=== PATIENT | male | born 1935 | race Caucasian/White ===

== ENCOUNTER 2018-02-24 13:06 | Inpatient (IN) | payer OTHER ==
--- OUTSIDE RECORDS SUMMARY | 2018-02-24 13:43 | XMS REPORT | Clinical Summary ---
:1935 Author Organization [facility] Address [address] [place] [address] Care Team Providers Name Role Phone Keyon Love MD Primary Care Provider Allergies No Known Allergies Current Medications Prescription Sig. Disp. Refills Start Date End Date Status allopurinol (ZYLOPRIM) Take 300 mg by 1 06/15/2016 Active 300 MG tablet mouth once daily. DUREZOL 0.05 % drops PUT 1 DROP INTO 0 07/09/2016 Active RIGHT EYE 4 TIMES A DAY gatifloxacin (ZYMAXID) PUT 1 DROP INTO 1 07/23/2016 Active 0.5 % drops LEFT EYE TWICE A DAY 3 DAYS PRE-OP metoprolol succinate XL Take 100 mg by 1 07/22/2016 Active (TOPROL-XL) 100 mg 24 hr mouth 2 (two) times tablet a day. ILEVRO 0.3 % INSTILL 1 DROP INTO 0 07/25/2016 Active drops,suspension RIGHT EYE AT BEDTIME warfarin (COUMADIN) 3 MG Take 4.5 mg by 1 08/19/2016 Active tablet mouth once daily. ranitidine (ZANTAC) 150 Take 150 mg by 2 07/23/2016 Active MG tablet mouth once daily. nisoldipine (SULAR) 30 MG Take 30 mg by mouth 0 08/22/2016 Active 24 hr tablet once daily. Active Problems Problem Noted Date Venous stasis dermatitis of both lower extremities 04/04/2017 Varicose veins of both legs with edema 04/04/2017 Lymphedema of both lower extremities 04/04/2017 Encounters Date Type Specialty Care Team Description 10/24/2017 Office Visit Cardiovascular Von Farias MD Venous stasis dermatitis of both lower extremities (Primary Dx); Varicose veins of both legs with edema; Lymphedema of both lower extremities 04/04/2017 Office Visit Cardiovascular Von Farias MD Venous stasis dermatitis of both lower extremities (Primary Dx); Varicose veins of both legs with edema; Lymphedema of both lower extremities after 02/23/2017 Family History Medical History Relation Name Comments Cancer Mother Cancer Sister Relation Name Status Comments Mother breast cancer Sister breast cancer Social History Tobacco Use Types Packs/Day Years Used Date Never Smoker Alcohol Use Drinks/Week oz/Week Comments No Sex Assigned at Date Recorded Not on file Last Filed Vital Signs Vital Sign Reading Time Taken Blood Pressure 128/48 04/04/2017 12:46 PM CDT Pulse - - Temperature - - Respiratory Rate 14 04/04/2017 12:46 PM CDT Oxygen Saturation - - Inhaled Oxygen Concentration - - Weight 126 kg (277 lb) 04/04/2017 12:46 PM CDT Height 188 cm (6' 2") 04/04/2017 12:46 PM CDT Body Mass Index 35.56 04/04/2017 12:46 PM CDT Plan of Treatment Date Type Specialty Care Team Description 06/16/2018 [place] [address] [id number] Health Maintenance Due Date Last Done Comments SHINGRIX VACCINE (#1) 1987 ZOSTER VACCINE 1997 PNEUMOCOCCAL POLYSACCHARIDE VACCINE AGE 65 AND OVER 2002 PNEUMOCOCCAL-13 2002 INFLUENZA VACCINE 03/19/2018 Results Not on fileafter 02/23/2017 Insurance Payer Benefit Plan / Group Subscriber ID Type Phone Address MEDICARE MEDICARE PART A AND B xxxxxxxxxx Medicare [place], [place] AETNA AETNA PPO OPEN CHOICE xxxxxxxxx PPO
--- NOTE | 2018-02-24 14:45 | RAD REPORT ---
EXAM DESCRIPTION: RAD - Chest Single View - 02/24/2018 2:33 pm CLINICAL HISTORY: CHF, Renal Failure Chest pain. COMPARISON: Chest Pa And Lat (2 Views) dated 12/07/2016; CHEST PA AND LAT 2 VIEW dated 01/22/2011; CHES T PA AND LAT 2 VIEW dated 09/13/2010; CHEST PA AND LAT 2 VIEW dated 01/18/2009 FINDINGS: Portable technique limits examination quality. The lungs are underinflated with mild vascular crowding. No focal infiltrate is seen. The heart is mi ldly to moderately enlarged. No displaced fractures.Aortic atherosclerosis. IMPRESSION: Underinflated lungs with vascular crowding.
[2018-02-24 15:32] LABS: Absolute Lymphocytes (CBC) 0.9 K/uL (0.7-4.9); Absolute Monocytes 0.8 K/uL (0.1-1.3); Absolute Neutrophil 6.1 K/uL (1.8-8.0); Eosinophils % 2.3 % (0-4.4); Hematocrit 32.5 % (39.6-49.0); Lymphocytes % 11.3 % (15.3-44.8); MCH 32.4 pg (27.0-35.0); MCV 97.7 fL (80-100); MPV 9.3 fL (7.6-11.3); Monocytes % 9.6 % (3.3-12.3); RBC Red Blood Cell Count 3.32 M/uL (4.33-5.43)
[2018-02-24 15:34] LABS: Protime INR 3.7
[2018-02-24 15:47] LABS: Potassium 4.6 mmol/L (3.5-5.1)
[2018-02-24 15:48] LABS: Albumin 2.8 g/dL (3.4-5.0); Bilirubin Direct 0.2 mg/dL (0-0.2); Bilirubin Total 0.5 mg/dL (0.2-1.0); Protein, Total 6.8 g/dL (6.4-8.2); Uric Acid 3.4 mg/dL (3.5-7.2)
[2018-02-24] MEDS ORDERED: HOME MED 1 EA UNK (Omeprazole [Prilosec] 40 MG) PO PRN (16:37)
--- NOTE | 2018-02-24 16:40 | ECHO ---
HEIGHT: 6 ft 2 in WEIGHT: 275 lb 12.8 oz DATE OF STUDY: 02/24/[address]: Keyon Love MD 2-DIMENSIONAL: YES M.MODE: YES DOPPLER: YES COLOR FLOW: YES TDS: PORTABLE: DEFINITY: BUBBLE STUDY: DIAGNOSIS: CONGESTIVE HEART FAILURE CARDIAC HISTORY: CATHERIZATION: NO SURGERY: NO PROSTHETIC VALVE: NO PACEMAKER: NO MEASUREMENTS (cm) DIASTOLIC (NORMALS) SYSTOLIC (NORMALS) IVSd 1.2 (0.6-1.2) LA Diam 3.6 (1.9-4.0) LVEF 64% LVIDd 5.6 (3.5-5.7) LVIDs 3.6 (2.0-3.5) %FS 35% LVPWd 1.4 (0.6-1.2) Ao Diam 3.5 (2.0-3.7) 2 DIMENSIONAL ASSESSMENT: RIGHT ATRIUM: NORMAL LEFT ATRIUM: NORMAL RIGHT VENTRICLE: NORMAL LEFT VENTRICLE: LEFT VENTRICULAR HYPERTROPHY TRICUSPID VALVE: NORMAL MITRAL VALVE: NORMAL PULMONIC VALVE: NORMAL AORTIC VALVE: NORMAL PERICARDIAL EFFUSION: NONE AORTIC ROOT: NORMAL LEFT VENTRICULAR WALL MOTION: NORMAL DOPPLER/COLOR FLOW: MILD MITRAL REGURGITATION AND TRICUSPID REGURGITATION. MILD PULMONARY HYPERTENSION. ESTIMATED RIGHT VENTRICULAR SYSTOLIC PRESSURE 45 mmHg. IMPAIRED LEFT VENTRICULAR RELAXATION. COMMENTS: NORMAL LEFT VENTRICULAR EJECTION FRACTION. LEFT VENTRICULAR HYPERTROPHY. MILD MITRAL REGURGITATION AND TRICUSPID REGURGITATION. MILD PULMONARY HYPERTENSION. IMPAIRED LEFT VENTRICULAR RELAXATION. TECHNOLOGIST: SRINIVAS MARIE
[2018-02-24] MEDS ORDERED: HOME MED 1 EA UNK (Cholecalciferol (Vitamin D3) [Vitamin D3] 1 CAP) PO SCH (16:45)
[2018-02-24] MEDS ORDERED: PANTOPRAZOLE 40MG TABLET PO PRN (16:50)
[2018-02-24] MEDS ORDERED: FUROSEMIDE 40 MG/4 ML VIAL IV ONE (17:00)
[2018-02-24] MEDS ORDERED: VITAMIN D 1000 UNIT TAB PO SCH (17:00)
--- NOTE | 2018-02-24 17:37 | CON ---
History Of Present Illness: Mr. Small is 83. He is placed in the hospital because he has been short of breath. His shortness of breath started Saturday. He has orthopnea and dyspnea on exertion. No p ain, pressure, or tightness in the chest. Minimal exertion causes trouble. when he gets out of roman th, he has to sit upright or stand to catch his breath. After he does so, he can usually lay back do wn and feel better in 10 or 15 minutes. He has no previous history of heart disease. He has hyperte nsion and renal failure. His most recent creatinine is 4.7. He takes Coumadin. He does not really know the indication for his Coumadin. Medications: He also takes Prilosec, Lasix, sodium bicarbonate, ranitidine, Uloric, amlodipine metop rolol, calcium acetate. No previous history of stroke, myocardial infarction, stents, thrombectomies, bypass surgeries. Physical Examination: General: He is 6 feet 2 inches, 275 pounds. Alert, oriented, pleasant, not in distress. Lungs: Reveal sparse basilar crackles. Heart: Reveals a regular rate and rhythm. No significant murmur. No gallop is appreciated. No anton stolic murmur. Abdomen: Soft. Extremities: 2+ edema. 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 Allergies: HE IS ALLERGIC TO CODEINE AND MORPHINE. Social History: He uses no tobacco. Rare alcohol. No illegal drugs. An EKG has not been done. The chest x-ray reveals vascular crowding, poor inspiratory effort. Impression: The patient has dyspnea from mild volume overload, probably almost uremic. His echocard iogram shows normal ejection fraction. There is left ventricular hypertrophy, diastolic dysfunction, but I think it is really a combination of cardiac and renal disease making him go into a mild pulmon ryley edema. He should have an x-ray. He should have a pharmacologic nuclear stress test to see where we are want to go with things. He needs some diuresis to feel better above and beyond what he has r eceived. I doubt if the 20 mg of furosemide he takes daily has any effect on him. He has already qu ite advanced renal disease. He is well in the stage 4. INEZ/LISA Voice ID: [id number] Report ID: [id number]
[2018-02-24 19:09] LABS: Urine Appearance CLEAR; Urine Bilirubin NEGATIVE (NEG); Urine Blood 1+ (NEG); Urine Color YELLOW; Urine Glucose 1+ (NEG); Urine Protein 3+ (NEG); Urine Specific Gravity 1.015 (1.005-1.030); Urine Urobilinogen 0.2 mg/dL (0.2-1.0)
[2018-02-24 19:30] LABS: Urine Microscopic Reflex ORDER UMIC
[2018-02-24 19:36] LABS: Urine Bacteria <20 /HPF (NONE SEEN); Urine Culture Reflex Order REFLEXED
[2018-02-24] MEDS: METOPROLOL XL 100 MG TAB PO SCH (20:51)
[2018-02-24] MEDS ORDERED: WARFARIN SODIUM 1 MG TAB ONE (20:52)
[2018-02-24] MEDS ORDERED: METOLAZONE 5 MG TABLET PO SCH (21:30)
--- NOTE | 2018-02-24 21:39 | P.CNS ---
Date of Consult: 02/24/18 Reason for Consult: ERVIN Requesting Physician: Keyon Love Chief Complaint: Dyspnea History of Present Illness: 83 yo WM CKD, HTN presented to the hospital with 3-4 days of moderate, progressive dyspnea in the setting of CKD with LE edema. Symptoms worse with activity. No alleviating fx. Reports no hx of CHF. Follows with Dr. Jimenez for CKD sp left partial nephrectomy due to RCC. Has a lesion on his right kidney suspicious for RCC and followed by Dr. Alan (urology) . Allergies codeine Adverse Reaction (Verified 02/24/18 14:13) Itching morphine Adverse Reaction (Verified 02/24/18 14:13) Itching Home medications list reviewed: Yes Home Medications: Acetaminophen/Diphenhydramine [Tylenol Pm Ex-Strength Caplet] 2 tab PO PRN 02/24 Amlodipine Besylate 10 mg PO DAILY 02/24/18 Antiox#10/Om3/Dha/Epa/Lut/Zeax [I-Caps with Lutein-Hickory 3 Sfg] 1 tab PO DAILY 02/24/18 Calcium Acetate 1 cap PO DAILY 02/24/18 Cholecalciferol (Vitamin D3) [Vitamin D3] 1 cap PO SEECOM 02/24/18 Cyanocobalamin (Vitamin B-12) [Vitamin B-12] 1 tab PO DAILY 02/24/18 Docusate Sodium [Stool Softener] 100 mg PO 02/24/18 Febuxostat [Uloric] 80 mg PO DAILY 02/24/18 Furosemide 20 mg PO DAILY 02/24/18 L-Lysine 1 cap PO DAILY 02/24/18 Metoprolol Succinate [Toprol Xl] 100 mg PO BID 02/24/18 Omeprazole [Prilosec] 40 mg PO DAILYPRN PRN 02/24/18 Ranitidine HCl [Acid Psychological Assistant] 150 mg PO DAILY 02/24/18 Sodium Bicarbonate 325 mg PO DAILY 02/24/18 Warfarin Sodium 4.5 mg PO DAILY 02/24/18 - Past Medical/Surgical History Diabetic: No -: HTN -: Stage 4 kidney -: DVT filter -: Kidney Ca -: 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 moist/pink Neck: Supple, JVD distended Respiratory: Diminished Cardiovascular: Regular rate/rhythm, No rubs, Edema Gastrointestinal: Soft and benign, Non-distended, No guarding Musculoskeletal: No clubbing, No contractures Integumentary: No cyanosis, Skin lesion Neurological: Normal speech Laboratory Data (last 24 hrs) 02/24/18 15:00: Uric Acid 3.4 L, Total Bilirubin 0.5, AST 20, ALT 12, Alkaline Phosphatase 69 02/24/18 15:00: PT 44.3 H, INR 3.70 02/24/18 15:00: Sodium 145, Potassium 4.6, BUN 63 H, Creatinine 4.70 H, Glucose 86 02/24/18 15:00: WBC 8.1, Hgb 10.8 L, Hct 32.5 L, Plt Count 240 Imagings Data: CXR: Cardiomegaly. CHF. Aortic atherosclerosis. Conclusions/Impression: A/ ERVIN likely CRS. CKD IV with proteinuria. Left partial nephrectomy. Acidosis. A/C Diastolic CHF. HTN with CKD. Anemia in chronic illness. PRASANNA/ Secondary HyperPTH. Gout. Right renal lesion suspicious for RCC. P/ Continue current POC and Medications. Agree with Lasix. Give a dose of metolazone. Increase bicarb and Phoslo TID. Start Vitamin D. Check a renal ultrasound. Plan for cardiology evaluation. No NSAIDs. AM labs. Daily weight. Check hepatitis panel. Thank you kindly for the consultation.
--- NOTE | 2018-02-24 22:21 | RAD REPORT ---
EXAM DESCRIPTION: US - Renal Ultrasound-Complete - 02/24/2018 10:08 pm CLINICAL HISTORY: CKD IV. Right renal lesion. Left nephrectomy. Flank pain COMPARISON: ABDOMINAL EXAM COMPLETE dated 09/13/2010 FINDINGS: The left kidney appears small in size and is quite echogenic. The right kidney appears mil dly echogenic and is slightly enlarged. The right kidney measures 13.6 x 6.1 x 5.2 cm.. Multiple right renal cysts are noted of varying sizes . In addition, in the inferior pole a solid mass appearing lesion is present measuring 5.7 x 4.7 cm. The left kidney measures 7.5 x 5.7 x 5.8 cm. No hydronephrosis. Small cyst measuring 18 mm noted. The urinary bladder is incompletely distended without gross abnormality seen. IMPRESSION: Inferiorly located right renal mass lesion is suspected measuring 5.7 x 4.7 cm. This wou ld be worrisome for a malignancy. CT or MR imaging of the kidneys would be recommended for further ev aluation. Echogenic kidneys, greater on the left, suggests underlying medical renal disease.
[2018-02-25 04:56] LABS: Absolute Lymphocytes (CBC) 1.4 K/uL (0.7-4.9); Absolute Neutrophil 6.3 K/uL (1.8-8.0); Eosinophils % 3.8 % (0-4.4); Hematocrit 32.2 % (39.6-49.0); Lymphocytes % 15.1 % (15.3-44.8); MCV 95.8 fL (80-100); MPV 9.1 fL (7.6-11.3); Monocytes % 10.8 % (3.3-12.3); RBC Red Blood Cell Count 3.36 M/uL (4.33-5.43)
[2018-02-25 05:18] LABS: Phosphorus 5.3 mg/dL (2.5-4.9); Potassium 4.4 mmol/L (3.5-5.1); Uric Acid 3.4 mg/dL (3.5-7.2)
[2018-02-25 05:19] LABS: Protime INR 3.86
[2018-02-25 05:29] LABS: Urine Appearance CLEAR; Urine Bilirubin NEGATIVE (NEG); Urine Blood 1+ (NEG); Urine Color YELLOW; Urine Glucose NEGATIVE (NEG); Urine Protein 3+ (NEG); Urine Urobilinogen 0.2 mg/dL (0.2-1.0)
[2018-02-25 05:39] LABS: Urine Bacteria <20 /HPF (NONE SEEN); Urine Culture Reflex Order NOT NEEDED; Urine RBC <5 /HPF (NONE SEEN)
[2018-02-25 05:42] LABS: Urine Protein/Creatinine Ratio 10.12 ratio (<0.15)
[2018-02-25] MEDS: CA ACETATE 667 MG CAP PO SCH ×3 (07:56→17:06)
[2018-02-25] MEDS ORDERED: REGADENOSON 0.4 MG/5 ML SYR IV ONE (08:20)
[2018-02-25] MEDS ORDERED: HOME MED 1 EA UNK (Cyanocobalamin (Vitamin B-12) [Vitamin B-12] 1 TAB) PO SCH (09:00)
[2018-02-25] MEDS ORDERED: SODIUM BICARB 325 MG TAB PO SCH ×2 (09:00)
[2018-02-25] MEDS: FEBUXOSTAT 80 MG PO SCH (09:00)
[2018-02-25] MEDS ORDERED: CA ACETATE 667 MG CAP PO SCH ×2 (09:00)
[2018-02-25] MEDS ORDERED: METOLAZONE 5 MG TABLET PO SCH ×2 (09:00→15:00)
[2018-02-25] MEDS: VITAMIN D 5,000 UNIT CAP PO SCH (11:12)
[2018-02-25] MEDS: MUPIROCIN 2% OINT 22GM TUBE TOP SCH (11:12)
[2018-02-25] MEDS: CYANOCOBALAMIN 1,000 MCG TAB PO SCH (11:13)
[2018-02-25] MEDS: AMLODIPINE 10 MG TAB PO SCH (11:13)
[2018-02-25] MEDS: CALCITROL 0.25 MCG CAP PO SCH (11:13)
[2018-02-25] MEDS: BISACODYL E.C. 5 MG TAB PO SCH (11:14)
[2018-02-25] MEDS: SODIUM BICARB 325 MG TAB PO SCH ×3 (11:14→21:22)
[2018-02-25] MEDS: METOPROLOL XL 100 MG TAB PO SCH ×2 (11:15→21:22)
[2018-02-25] MEDS: DOXAZOSIN 2 MG TAB PO SCH (11:15)
--- NOTE | 2018-02-25 11:23 | RAD REPORT ---
EXAM DESCRIPTION: NM - Rest Stress Cardiac Imaging - 02/25/2018 11:16 am CLINICAL HISTORY: CP Chest pain. COMPARISON: No comparisons TECHNIQUE: The patient was administered approximately 10mCi of Tc 99m Sestamibi prior to resting SPE CT imaging of the heart. The patient was then administered approximately 30 mCi of Tc 99m Sestamibi f ollowing exercise or pharmacologic stress. Multiplanar SPECT images were reviewed. FINDINGS: No stress induced ischemic defect is seen to suggest stress induced ischemia. No fixed def ect is seen to suggest hibernating myocardium or scarred myocardium. The end diastolic volume is 186 ml, the end systolic volume is 81 ml, and the ejection fraction is 57 %. IMPRESSION: No stress induced ischemia.
--- NOTE | 2018-02-25 12:58 | TREADPHA ---
DX: SHORTNESS OF BREATH Date of Study: 02/25/2018 Ht: 6 2 Wt: 275 lb 12.8 oz Consulting Physician: SAMMY MEDICATIONS: NORVASC, DULCOLAX, ROCALTOL, PHOSLO, VITAMIN D, VITAMIN B12, ZAROXOLYN, TOPROL XL, BACTROBAN, PROTONIX HISTORY: 83 YEAR OLD MALE HERE FOR SHORTNESS OF BREATH. HISTORY OF HYPERTENSION, GERD AND STAGE 4 KIDNEY FAILURE. PHYSICIAL EXAMINATION: RESTING B.P.: 174/84 RESTING H.R.: 59 RESTING EKG: SINUS RHYTHM, RIGHT BUNDLE BRANCH BLOCK PROTOCOL: LEXISCAN EXERCISE TIME: 3:30 B.P. AT PEAK STRESS: 160/75 IMPRESSION: LEXISCAN STRESS TEST PERFORMED. CARDIOLITE INJECTED PER PROTOCOL. PREMATURE ATRIAL COMPLEXES NOTED DURING, RARE PREMATURE VENTRICULAR COMPLEXES NOTED DURING AND POST STRESS TEST. DENIES ANY PAIN. SEE NUCLEAR MEDICINE REPORT.
[2018-02-25] MEDS: ACETAMINOPHEN 500 MG TAB PO PRN (14:27)
[2018-02-25] MEDS ORDERED: FUROSEMIDE 40 MG/4 ML VIAL IV ONE (15:00)
[2018-02-25] MEDS ORDERED: WARFARIN SODIUM 3 MG TAB PO ONE (17:00)
--- NOTE | 2018-02-25 21:37 | P.PN ---
Date of Service: 02/25/18 Vital Signs Temp Pulse Resp BP Pulse Ox 96.6 F L 55 18 148/68 H 94 02/25/18 20:00 02/25/18 21:22 02/25/18 20:00 02/25/18 21:22 02/25/18 20:00 Medications Acetaminophen (Tylenol -Extra Strength) 500 mg PO Q6H PRN PRN Reason: pain Stop: 03/27/18 14:03 Last Admin: 02/25/18 14:27 Dose: 500 mg Amlodipine Besylate (Norvasc) 10 mg PO DAILY BASSAM Stop: 03/27/18 09:01 Last Admin: 02/25/18 11:13 Dose: 10 mg Bisacodyl (Dulcolax) 5 mg PO DAILY BASSAM Stop: 03/27/18 09:01 Last Admin: 02/25/18 11:14 Dose: 5 mg Calcitriol (Rocaltrol) 0.5 mcg PO DAILY BSASAM Stop: 03/27/18 09:01 Last Admin: 02/25/18 11:13 Dose: 0.5 mcg Calcium Acetate (Phoslo) 667 mg PO TIDWM BASSAM Stop: 03/27/18 08:01 Last Admin: 02/25/18 17:06 Dose: 667 mg Cholecalciferol (Vitamin D 5,000 Iu Cap) 5,000 unit PO DAILY BASSAM Stop: 03/27/18 09:01 Last Admin: 02/25/18 11:12 Dose: 5,000 unit Cyanocobalamin (Vitamin B-12) 2,000 mcg PO DAILY BASSAM Stop: 03/27/18 09:01 Last Admin: 02/25/18 11:13 Dose: 2,000 mcg Doxazosin Mesylate (Cardura) 2 mg PO DAILY BASSAM Stop: 03/27/18 09:01 Last Admin: 02/25/18 11:15 Dose: 2 mg Home Med (Febuxostat [Uloric]) 80 mg PO DAILY BASSAM Stop: 03/27/18 09:01 Last Admin: 02/25/18 09:00 Dose: Not Given Metolazone (Zaroxolyn) 10 mg PO 1X BASSAM Stop: 03/27/18 15:01 Last Admin: 02/25/18 14:44 Dose: 10 mg Metoprolol Succinate (Toprol Xl) 100 mg PO BID BASSAM Stop: 03/26/18 21:01 Last Admin: 02/25/18 21:22 Dose: 100 mg Mupirocin (Bactroban 2% Ointment) 1 appl TOP DAILY BASSAM Stop: 03/27/18 09:01 Last Admin: 02/25/18 11:12 Dose: 1 appl Pantoprazole Sodium (Protonix Tab) 40 mg PO DAILYPRN PRN PRN Reason: GASTRIC UPSET/ INDIGESTION Stop: 03/26/18 16:51 Sodium Bicarbonate (Sodium Bicarb 325 Mg) 325 mg PO TID BASSAM Stop: 03/27/18 09:01 Last Admin: 02/25/18 21:22 Dose: 325 mg Sodium Chloride (Normal Saline Flush) 10 ml IV BID BASSAM Stop: 03/26/18 21:01 Last Admin: 02/25/18 21:22 Dose: 10 ml Sodium Chloride (Normal Saline Flush) 10 ml IV PRN PRN PRN Reason: FLUSH BEFORE & AFTER EACH USE Stop: 03/26/18 13:59 Lab Results (last 24 hrs) 02/25/18 05:02: Urine Color Yellow, Urine Appearance Clear, Urine pH 6.0, Ur Specific Casa 1.010, Urine Ketones Negative, Urine Blood 1+ H, Urine Nitrite Negative, Urine Bilirubin Negative, Urine Urobilinogen 0.2, Ur Leukocyte Esterase Negative, Urine RBC <5, Urine WBC <5, Ur Squamous Epith Cells <5, Urine Bacteria <20, Urine Culture Reflexed Not needed, Urine Glucose Negative, Urine Total Protein 3+ H 02/25/18 05:02: U Random Total Protein 263 H, Urine Creatinine 26.0, Protein/ Creatinin Ratio 10.12 H 02/25/18 04:08: Sodium 146 H, Potassium 4.4, Chloride 115 H, Carbon Dioxide 20 L , BUN 69 H, Creatinine 4.90 H, Estimated GFR 11 L, Glucose 87, Uric Acid 3.4 L, Calcium 8.2 L, Phosphorus 5.3 H, Magnesium 2.0 02/25/18 04:08: WBC 9.2, RBC 3.36 L, Hgb 10.8 L, Hct 32.2 L, MCV 95.8, MCH 32.0 , MCHC 33.4, RDW 13.5, Plt Count 257, MPV 9.1, Neutrophils % 69.3, Lymphocytes % 15.1 L, Monocytes % 10.8, Eosinophils % 3.8, Basophils % 1.0, Absolute Neutrophils 6.3, Absolute Lymphocytes 1.4, Absolute Monocytes 1.0, Absolute Eosinophils 0.4, Absolute Basophils 0.1 02/25/18 04:08: PT 46.2 H, INR 3.86 Assessment/ Plan: Nephrology. Feeling better today but still with HIGUERA. CPS improved without CP or SOB. Good urine output. No acute events overnight. Vitals, medications, blood work and imaging reviewed in the chart. General: In no apparent distress, Oriented x3, Cooperative HEENT: Mucous membr. moist/pink Neck: Supple, JVD distended Respiratory: Diminished Cardiovascular: Regular rate/rhythm, No rubs, Edema Gastrointestinal: Soft and benign, Non-distended, No guarding Musculoskeletal: No clubbing, No contractures Integumentary: No cyanosis, Skin lesion Neurological: Normal speech Laboratory Data (last 24 hrs) 02/24/18 15:00: Uric Acid 3.4 L, Total Bilirubin 0.5, AST 20, ALT 12, Alkaline Phosphatase 69 02/24/18 15:00: PT 44.3 H, INR 3.70 02/24/18 15:00: Sodium 145, Potassium 4.6, BUN 63 H, Creatinine 4.70 H, Glucose 86 02/24/18 15:00: WBC 8.1, Hgb 10.8 L, Hct 32.5 L, Plt Count 240 Imagings Data: CXR: Cardiomegaly. CHF. Aortic atherosclerosis. Conclusions/Impression: A/ ERVIN likely CRS vs Progressive CKD. CKD IV with proteinuria. Left partial nephrectomy. Acidosis. A/C Diastolic CHF. HTN with CKD. Anemia in chronic illness. PRASANNA/ Secondary HyperPTH. Gout. Right renal lesion suspicious for RCC followed by Dr. Alan. P/ Continue current POC and Medications. Give another dose of Lasix and Metolazone today. Cardiology evaluation negative for ischemia. No NSAIDs. AM labs. Daily weight. Case discussed with Dr. Love Recommend discharge once stable with a follow up with Dr. Alan for right renal lesion resection; will likely need dialysis following a partial renal resection.
--- NOTE | 2018-02-26 01:45 | HP ---
Date of Admission: 02/24/2018 Entrance Complaint: Shortness of breath. History Of Present Illness: The patient presented to the office, stating he had a couple days where he has noticed he has been increasingly short of breath. However, the day he was seen in the office, he noticed marked dyspnea, especially with exertion. He had difficulty coming to the office from e parking lot. Past Medical History: The patient has a long history of kidney disease starting with carcinoma, whic h is being treated aggressively in [place] with a procedure. Since that time, he has also developed a lesion on the opposite kidney, the right, which has been followed by Nephrology and Urology. State s there has been some changes, and he is now on stage IV. He did not follow rather closely for this. Also has a history of hypertension, which is well controlled on medication, and past remote history consists of multiple PEs, for which he had an anticoagulation in the form of Coumadin therapy and a filter inserted. He has had no recent embolic disease. In fact, cardiac cruz, he was seen about a y ear ago for some atypical chest pain, at which time a catheterization was done and no procedure was r equired after this and there was no major blockage. Social History: Nonsmoker, nondrinker. Family History: Noncontributory. Physical Examination: General: The patient is a grossly obese, elderly male in mild respiratory distress. Vital Signs: Stable. Head and Neck: Normocephalic. Pupils equal, react to light and accommodation. Fundi negative. Trac hea midline. Thyroid not palpable. ENT: Negative. Chest: Bilateral rales. No use of accessory muscles. Adequate air entry bilaterally. Cardiovascular: PMI in midclavicular line. Heart: Sounds normal. Peripheral pulses present and equal bilaterally. Abdomen: Grossly obese. No organomegaly. Bowel sounds present. Extremities: Good tone and movement bilaterally. Minimal problems of upper extremities. Lower extr emities, show +1 to 2 pitting edema, two-quarters of the way from the knee to the foot with significa nt dermatological changes, and mild superficial abrasion on the left lower leg. Rectal: Deferred. Impression: 1.Congestive heart failure. 2.Possible coronary artery disease of significance. 3.Renal failure. 4.Hypertension, controlled. 5.Obesity, marked. Plan: The patient to be admitted. Consultation be obtained with Cardiology and Nephrology. Diuresi s will be indicated depending on the cardiac status. More aggressive treatment of the kidney problem may be necessary. /LISA Voice ID: [id number]
--- NOTE | 2018-02-26 02:12 | PN ---
Date of Progress Note: 02/25/2018 The patient states he put a lot of urine last night and recorded over 2000 cc. Stated last night he still had trouble breathing when he would go to the bathroom. However, as the night progressed, he d iuresed more, by this morning, he was much less dyspneic. Workup ensued, which included a Cardiolite stress test which showed no major changes other than some isolated rhythm problems with no ST or ischemic changes. Chest x-ray did reveal mild overload. His echo was basically stable. Cardiology felt it was a combi nation of renal and cardiac, which created the mild pulmonary edema. Will discuss the case further w armin Suarez, the plate mill mill hand, as far as management of this problem is concerned. HR/MODL Voice ID: [id number] Report ID: [id number]
--- NOTE | 2018-02-26 02:56 | PN ---
Patient congestive heart failure, seen by Dr. Hunter on 02/24/2018 for diastolic congestiv e heart failure, chronic renal disease stage IV, had a normal echocardiogram, otherwise with a normal ejection fraction, had decreased left ventricular compliance. He had been diuresing, renal is follo wing and continuing with the same therapy. The patient is feeling much better, breathing better. Julia saldivar is pending for today. ARSLAN Voice ID: [id number] Report ID: [id number]
[2018-02-26 05:47] LABS: Uric Acid 4.6 mg/dL (3.5-7.2)
[2018-02-26 05:52] LABS: Protime INR 2.91
[2018-02-26] MEDS: DOXAZOSIN 2 MG TAB PO SCH (08:35)
[2018-02-26] MEDS: CA ACETATE 667 MG CAP PO SCH ×3 (08:35→17:21)
[2018-02-26] MEDS: VITAMIN D 5,000 UNIT CAP PO SCH (08:35)
[2018-02-26] MEDS: CALCITROL 0.25 MCG CAP PO SCH (08:35)
[2018-02-26] MEDS: METOPROLOL XL 100 MG TAB PO SCH ×2 (08:36→21:13)
[2018-02-26] MEDS: SODIUM BICARB 325 MG TAB PO SCH ×3 (08:36→21:13)
[2018-02-26] MEDS: CYANOCOBALAMIN 1,000 MCG TAB PO SCH (08:36)
[2018-02-26] MEDS: AMLODIPINE 10 MG TAB PO SCH (08:37)
[2018-02-26] MEDS: FUROSEMIDE 40 MG TABLET PO SCH ×2 (08:37→17:21)
[2018-02-26] MEDS: BISACODYL E.C. 5 MG TAB PO SCH (08:38)
[2018-02-26] MEDS: MUPIROCIN 2% OINT 22GM TUBE TOP SCH (08:39)
[2018-02-26] MEDS: FEBUXOSTAT 80 MG PO SCH (08:40)
--- NOTE | 2018-02-26 09:01 | RAD REPORT ---
EXAM DESCRIPTION: RAD - Chest Pa And Lat (2 Views) - 02/26/2018 6:51 am CLINICAL HISTORY: chf Chest pain. COMPARISON: Chest Single View dated 02/24/2018; Chest Pa And Lat (2 Views) dated 12/07/2016; CHEST PA A ND LAT 2 VIEW dated 01/22/2011; CHEST PA AND LAT 2 VIEW dated 09/13/2010 FINDINGS: The lungs are hyperexpanded suggesting COPD. Trace pleural effusions are likely present bi laterally. Heart is moderately enlarged in size. No displaced fractures. Thoracic spondylosis is note d.
--- NOTE | 2018-02-26 14:41 | PN ---
The patient continues to improve as far as his breathing is concerned. Chest x-ray shows less vascul ar congestion. He states he can now walk to the bathroom with much less dyspnea, although he still h as with some exertion; however, the problem is his creatinine continues to rise, now at 5.2. Lasix s cenario, he has taken much higher dose than he is accustomed to. This issue of balancing the basics of the fluid and renal function will be discussed further with Nephrology. The probability of him di scharged in the a.m. is excellent unless there is some significant reduction in his renal function. The patient also has lost close to 7 pounds and continues to diurese. HR/MODL Voice ID: [id number] Report ID: [id number]
[2018-02-26] MEDS ORDERED: WARFARIN SODIUM 2 MG TAB PO ONE (17:00)
--- NOTE | 2018-02-26 17:18 | PN ---
Date of Progress Note: 02/26/2018 Subjective: The patient states that he is doing much better. Denies any complaints. Shortness of b reath is improving and lower extremity edema is improving. He is able to walk and he denies any dysp will on exertion. Physical Examination: Vital signs: Showing temperature of 97.5, pulse rate of 58, respiratory rate of 18, blood pressure 1 34/61. General: He appears in no acute distress. Auscultation of heart revealed regular rate and rhythm. Abdomen: Soft. Extremities: With chronic changes but no acute edema was noted. Lungs: Clear to auscultation. Laboratory Data: At this time is showing sodium of 144, potassium of 4, chloride of 112, BUN of 75, and creatinine of 5.2. BMP results are showing hemoglobin of 10.8, hematocrit of 32.2, and platelet count of 257. Current Medications: Include Lasix 40 mg p.o. b.i.d., got a dose of metolazone yesterday, amlodipine 10 mg a day, doxazosin 2 mg daily. He got 1 dose of Lasix yesterday as well, metoprolol 100 mg b.i. d., warfarin 3 mg daily and his INR is being checked. Impression: 1.Ddszo-wt-urvbbmo renal insufficiency, currently with slightly worse renal function, possibly secon nicholas to ongoing diuresis leading to cardiorenal syndrome. The patient's volume status definitely see ms to be improving at this time and electrolytes seems to be stable even though renal function is get ting worse. Overall, since his volume status is doing okay, I am okay with him getting discharged wi th close followup as outpatient. He has been following with Dr. Jimenez for a while and he is willing t o follow up with us closely and monitor his renal function closely. I have given him an order to get his blood work done next week and follow up with me closely. 2.Cardiology evaluation for ischemia. The patient is being followed by Dr. Hunter. 3.Underlying renal cell carcinoma. The patient is being scheduled with for a possibl e partial versus total nephrectomy depending on the situation, so the patient has been notified of e possibility of ending up on dialysis, which the patient is aware of and is okay with that. 4.Chronic anemia. The patient's hemoglobin is overall stable. No need for ASHVIN at this time. 5.Hypertension. 6.Congestive heart failure, improving volume status overall. Plan: The patient is doing much better at this time, even though renal function worse, we are okay w ith discharging him with close followup as outpatient. Have counseled him on low-sodium diet and he should be taking Lasix 40 mg b.i.d. at home and we will get labs done and follow up closely. We will follow up with Dr. Love to monitor his INR levels and his Coumadin will be adjusted. Continue al l other medications and plan of care. Plan was discussed with the patient and family in detail. All questions were answered. Discussed with the nursing staff about discharge planning. Time spent abo ut 45 minutes. TR/LISA Voice ID: [id number] Report ID: [id number]
[2018-02-27 05:36] LABS: Protime INR 2.2
[2018-02-27 05:39] LABS: Absolute Lymphocytes (CBC) 1.3 K/uL (0.7-4.9); Absolute Monocytes 0.9 K/uL (0.1-1.3); Basophils % 0.8 % (0-1.3); Eosinophils % 4.2 % (0-4.4); Hematocrit 29.5 % (39.6-49.0); MCH 32.6 pg (27.0-35.0); MCV 95.1 fL (80-100); MPV 9.1 fL (7.6-11.3); Monocytes % 11.7 % (3.3-12.3); RBC Red Blood Cell Count 3.11 M/uL (4.33-5.43)
[2018-02-27] MEDS: MUPIROCIN 2% OINT 22GM TUBE TOP SCH (08:41)
[2018-02-27] MEDS: CA ACETATE 667 MG CAP PO SCH ×3 (08:42→16:23)
[2018-02-27] MEDS: CALCITROL 0.25 MCG CAP PO SCH (08:42)
[2018-02-27] MEDS: SODIUM BICARB 325 MG TAB PO SCH ×2 (08:42→13:56)
[2018-02-27] MEDS: CYANOCOBALAMIN 1,000 MCG TAB PO SCH (08:43)
[2018-02-27] MEDS: VITAMIN D 5,000 UNIT CAP PO SCH (08:43)
[2018-02-27] MEDS: FUROSEMIDE 40 MG TABLET PO SCH ×2 (08:43→16:23)
[2018-02-27] MEDS: DOXAZOSIN 2 MG TAB PO SCH (08:44)
[2018-02-27] MEDS: AMLODIPINE 10 MG TAB PO SCH (08:44)
[2018-02-27] MEDS: FEBUXOSTAT 80 MG PO SCH (08:45)
[2018-02-27] MEDS: METOPROLOL XL 100 MG TAB PO SCH (08:45)
[2018-02-27] MEDS: BISACODYL E.C. 5 MG TAB PO SCH (08:45)
[2018-02-27] MEDS: ACETAMINOPHEN 500 MG TAB PO PRN (14:38)
[2018-02-27] MEDS ORDERED: EPOETIN ALFA 10,000 UNIT/ML SQ ONE (16:00)
[2018-02-27 20:01] LABS: HBsAG Nonreactive (Nonreactive)
--- NOTE | 2018-02-28 21:12 | P.PN ---
Date of Service: 02/27/18 Vital Signs Temp Pulse Resp BP Pulse Ox 97.0 F 58 18 137/68 93 02/27/18 16:00 02/27/18 16:23 02/27/18 16:00 02/27/18 16:23 02/27/18 16:00 Microbiology Results 02/24/18 18:30 Clean Catch Urine [place] Count - Final BETWEEN 10,000 & 100,000 CFU/ML 02/24/18 18:30 Clean Catch Urine - Final Assessment/ Plan: Nephrology. Doing well. CPS improved without CP or SOB. Good urine output. No acute events overnight. Vitals, medications, blood work and imaging reviewed in the chart. General: In no apparent distress, Oriented x3, Cooperative HEENT: Mucous membr. moist/pink Neck: Supple, JVD distended Respiratory: Diminished Cardiovascular: Regular rate/rhythm, No rubs, Edema Gastrointestinal: Soft and benign, Non-distended, No guarding Musculoskeletal: No clubbing, No contractures Integumentary: No cyanosis, Skin lesion Neurological: Normal speech Laboratory Data (last 24 hrs) 02/24/18 15:00: Uric Acid 3.4 L, Total Bilirubin 0.5, AST 20, ALT 12, Alkaline Phosphatase 69 02/24/18 15:00: PT 44.3 H, INR 3.70 02/24/18 15:00: Sodium 145, Potassium 4.6, BUN 63 H, Creatinine 4.70 H, Glucose 86 02/24/18 15:00: WBC 8.1, Hgb 10.8 L, Hct 32.5 L, Plt Count 240 Imagings Data: CXR: Cardiomegaly. CHF. Aortic atherosclerosis. Conclusions/Impression: A/ ERVIN likely CRS vs Progressive CKD. CKD IV with proteinuria. Left partial nephrectomy. Acidosis. A/C Diastolic CHF. HTN with CKD. Anemia in chronic illness. PRASANNA/ Secondary HyperPTH. Gout. Right renal lesion suspicious for RCC followed by Dr. Alan. P/ Continue current POC and Medications. Lasix 40mg twice daily. Cardiology evaluation negative for ischemia. No NSAIDs. AM labs. Daily weight. Agree with overnight stay due to worsening ERVIN. However, will consider discharge today due to the lack of uremic symptoms. Stressed to the patient that he will need to follow up with Dr. Alan soon due to the right renal lesion. Counseled regarding the possibility of starting dialysis soon.
--- NOTE | 2018-03-01 16:24 | PN ---
Date of Progress Note: 02/27/2018 The patient states he continues to diuresed, has lost a little bit more weight, but does feel better as far as his breathing is concerned, although he says moderate amount of exertion still create some dyspnea. Physical exam reveals much less peripheral edema and only occasional rales. Chemically his creatinin e seem to level off as well as his INR. Discussion with the welding pantograph machine operator, he feels comfortable to sen d him home on his Lasix 40 mg b.i.d. and Coumadin 3 mg and followup in a few days in the office. He is to continue daily weights, with the fluctuation of greater 5 pounds to let either welding pantograph machine operator or myself know. The patient appears at this time to be a candidate for his surgical procedure on the [facility] and this information will be for referred to his urologist, Dr. Kebede as the patient has an appointment in approximately 2 weeks. Discharged in fair condition. HR/MODL Voice ID: [id number] Report ID: [id number]
--- NOTE | 2018-04-15 06:06 | DS ---
Date of Discharge: 02/27/2018 Hospital Summary: The patient was admitted to the hospital on 02/24 after presenting to the emergenc y room with significant progressive shortness of breath. The diagnosis of CHF was made, and he was d iuresed and admitted for further treatment. The patient has a rather complicated history in regard t o his kidney. He had a partial nephrectomy for the left renal cell carcinoma and is currently being seen by the same urologist, Dr. Alan in [place] for a lesion on the opposite kidney. In between time s, he has had some renal decompensation and has been seen by Nephrology on a regular basis. As of la , he has noticed some swelling and as mentioned, shortness of breath. He is on a diuretic on a abran y low dose. He was admitted, diuresed, seen by Cardiology and Nephrology. The possibility of dialys is was a definite consideration. During his hospital stay, his medication was adjusted as well as hi s cardiac medicine of metoprolol, amlodipine and diuresis with Lasix. He was also given metolazone, which seemed to improved his output considerably and resulted in decreased symptomatology and physica l examination as far as peripheral edema is concerned. His bicarb and PhosLo was also increased and started on vitamin D. On the above-outlined regimen, it was felt by Nephrology, Cardiology, and myse lf that he possibly could avoid dialysis until after the schedule surgical procedure and/or biopsy by Dr. Alan in [place] in a couple weeks and he was therefore discharged on his modified medications to be followed up by Urology, Cardiology and myself. Final Diagnoses: Acute episode of congestive heart failure, renal cell carcinoma by history and on t he right a renal lesion with probable renal cell carcinoma, chronic kidney disease, and acute episode of deep venous thrombosis with filter placement by history. HR/MODL Voice ID: [id number] Report ID: [id number]
== END 2018-02-27 17:30 | disposition home or self-care (01) | DRG 291 ==
LOC: 3RD-ICU 13:38 → 4TH 19:10
PROVIDERS: ADMIT Family Medicine; ATTEND Family Medicine
DX: I13.0 Hypertensive heart and chronic kidney disease with heart failure and stage 1 through stage 4 chronic kidney disease, or unspecified chronic kidney disease (principal); I50.33 Acute on chronic diastolic (congestive) heart failure; N17.9 Acute kidney failure, unspecified; N18.4 Chronic kidney disease, stage 4 (severe); E87.2 Acidosis; N25.81 Secondary hyperparathyroidism of renal origin; C64.1 Malignant neoplasm of right kidney, except renal pelvis; Z85.528 Personal history of other malignant neoplasm of kidney; Z86.718 Personal history of other venous thrombosis and embolism; Z79.01 Long term (current) use of anticoagulants; D63.8 Anemia in other chronic diseases classified elsewhere; N25.0 Renal osteodystrophy; M10.9 Gout, unspecified; E66.9 Obesity, unspecified; Z88.5 Allergy status to narcotic agent; Z68.35 Body mass index [BMI] 35.0-35.9, adult
CPT/HCPCS: 36415; 71045; 71046; 76770; 78452; 80048; 80076; 81001; 81003; 81015; 82570; 83735; 84100; 84156; 84550; 85025; 85610; 86704; 86706; 86803; 87086; 87088; 87340; 93005; 93017; 93306; A9500; J0885; J2785

== ENCOUNTER 2018-03-06 19:21 | Inpatient (IN) | payer OTHER ==
--- OUTSIDE RECORDS SUMMARY | 2018-03-06 19:33 | XMS REPORT | Clinical Summary ---
:1935 Author Organization [facility] Address [address] [place] [address] Care Team Providers Name Role Phone Keyon [...] edema; Lymphedema of both lower extremities after 03/05/2017 Family History Medical History Relation Name Comments [...] 06/16/2018 [place] [id number] [id number] Health Maintenance Due Date Last Done Comments SHINGRIX VACCINE (#1) 1987 ZOSTER VACCINE 1997 PNEUMOCOCCAL POLYSACCHARIDE VACCINE AGE 65 AND OVER 2002 PNEUMOCOCCAL-13 2002 INFLUENZA VACCINE 03/19/2018 Results Not on fileafter 03/05/2017 Insurance Payer Benefit Plan / Group Subscriber ID Type Phone Address MEDICARE MEDICARE PART A AND B xxxxxxxxxx Medicare [place], [place] AETNA AETNA PPO OPEN CHOICE xxxxxxxxx PPO
[2018-03-06] MEDS ORDERED: CEFAZOLIN/NS 1gm 1 GM/50 ML BAG IVPB SCH (20:45)
[2018-03-06] MEDS ORDERED: NA CHLORIDE 0.9% 1,000 ML IV PRN (21:42)
[2018-03-06] MEDS ORDERED: MANNITOL 25% 12.5 GM/50 ML VIAL IV PRN (21:42)
[2018-03-06] MEDS ORDERED: ALBUMIN HUMAN 25% 50 ML IV SCH (22:00)
[2018-03-06] MEDS: SODIUM CHLORIDE 0.9% 10ML INJ IV SCH (23:40)
--- NOTE | 2018-03-07 03:15 | CON ---
Date of Consultation: 03/06/2018 Reason For Consult: Patient needs urgent dialysis. History Of Present Illness: The patient is an 83-year-old gentleman with history of kidney cancer, s tatus post partial resection of the mass on the other kidney now, and he has had chronic renal insuff iciency, but recently he had increasing volume overload and the BUN and creatinine have gone up to 14 8 and 8.5, and he needs dialysis sooner rather than later. He is awake and alert. No shortness of b reath. No chest pain. No fever or chills. Review of Systems: Otherwise unremarkable. Past Medical History: Significant for hypertension and kidney cancer. Past Surgical History: Kidney surgery, bilateral knee replacement. Allergies: INCLUDE CODEINE AND MORPHINE AND ADHESIVE TAPE. Social History: He does not smoke or drink. Family History: Noncontributory. Physical Examination: Vital Signs: Stable. He is afebrile. General: He is awake, alert, and oriented x3. Head and Neck: Cranial nerves 2 through 12 grossly within normal limits. No neck masses. No JVD. Throat clear. Neck is supple. Chest: Clear. Heart: S1, S2. Abdomen: Soft. Extremities: Neurovascularly intact. Neuro: Nonfocal. Laboratory Data: Chemistry reviewed. His BUN is 148, creatinine is 8.5. His INR is 1.62. H and H are 10.1 and 29.5, platelets are 214. Assessment: 83-year-old gentleman with kidney cancer, acute renal failure, requires urgent dialysis. Recommendations: The patient is on Coumadin, however the INR is 1.62. We will hold the Coumadin tod ay. He should be good to go for tomorrow. We will go ahead and place the Tesio catheter. Patient a nd family understand the risks, benefits, and alternatives, and agrees to procedure. /MODL Voice ID: [id number] Report ID: [id number]
[2018-03-07] MEDS: METOPROLOL XL 100 MG TAB PO SCH ×3 (05:11→20:44)
[2018-03-07 05:35] LABS: Absolute Lymphocytes (CBC) 1.3 K/uL (0.7-4.9); Absolute Monocytes 1.3 K/uL (0.1-1.3); Absolute Neutrophil 7.2 K/uL (1.8-8.0); Basophils % 0.8 % (0-1.3); Hematocrit 29.5 % (39.6-49.0); Lymphocytes % 12.4 % (15.3-44.8); MCH 32.1 pg (27.0-35.0); MCV 94.6 fL (80-100); MPV 9.7 fL (7.6-11.3); Monocytes % 12.1 % (3.3-12.3); RBC Red Blood Cell Count 3.12 M/uL (4.33-5.43)
[2018-03-07 06:02] LABS: Protime INR 1.54
[2018-03-07 06:35] LABS: Magnesium 2.7 mg/dL (1.8-2.4); Phosphorus 8.3 mg/dL (2.5-4.9); Potassium 3.6 mmol/L (3.5-5.1); Uric Acid 5.8 mg/dL (3.5-7.2)
[2018-03-07] MEDS ORDERED: NA CHLORIDE 0.9% 500 ML ONE (08:06)
[2018-03-07] MEDS ORDERED: CEFAZOLIN/SWI 1gm 1 GM/10 ML SYR ONE (08:06)
[2018-03-07] MEDS ORDERED: HEPARIN 5000 UNIT/ML 1 ML VIAL ONE (08:12)
[2018-03-07] MEDS ORDERED: NA CHLORIDE 0.9% 100 ML IV ONE (08:13)
[2018-03-07] MEDS ORDERED: BUPIVACAINE 0.5% PF 10 ML VIAL ONE ×2 (08:13→08:15)
[2018-03-07] MEDS ORDERED: BUPIVACAINE 0.25% PF 10 ML VIAL ONE (08:14)
[2018-03-07] MEDS ORDERED: LIDOCAINE 1% MPF 30 ML VIAL ONE (08:27)
[2018-03-07] MEDS ORDERED: NS 0.9% VIAL 10 ML ONE (08:27)
[2018-03-07] MEDS ORDERED: KETAMINE HCL 500 MG/5 ML VIAL ONE (08:46)
[2018-03-07] MEDS ORDERED: MIDAZOLAM HCL 2 MG/2 ML INJ ONE (08:47)
[2018-03-07] MEDS: VITAMIN D 5,000 UNIT CAP PO SCH (09:00)
[2018-03-07] MEDS: AMLODIPINE 10 MG TAB PO SCH (09:00)
[2018-03-07] MEDS: CALCITROL 0.25 MCG CAP PO SCH (09:00)
--- NOTE | 2018-03-07 09:24 | P.OP ---
Preoperative diagnosis: ARF Postoperative diagnosis: same Primary procedure: RIJ Nicolas Secondary procedure: fluoroscopy Anesthesia: MAC Estimated blood loss: min Specimen: none Findings: as above Complications: None Transferred to: Recovery Room Condition: Good
[2018-03-07] MEDS ORDERED: TRAMADOL 37.5mg/APAP 325mg PER TAB PO PRN (09:43)
--- NOTE | 2018-03-07 09:45 | RAD REPORT ---
EXAM DESCRIPTION: RAD - Fluoroscopy <1 Hour - 03/07/2018 9:36 am CLINICAL HISTORY: Device placement central venous catheter placement FINDINGS: A central venous catheter was placed into the superior vena cava. The examination was per formed by Dr. Auguste Three fluoroscopic spot images are submitted
[2018-03-07] MEDS: FENTANYL CITR 100 MCG/2 ML ONE ×3 (09:55→10:07)
--- NOTE | 2018-03-07 10:24 | RAD REPORT ---
EXAM DESCRIPTION: RAD - Chest Single View - 03/07/2018 10:02 am CLINICAL HISTORY: Device placement central venous line placement COMPARISON: February 26, 2018 FINDINGS: A PICC line has been inserted with its tip in the distal superior vena cava. A central venous catheter has been placed into the superior vena cava without visualization of a pneu mothorax. No other change is noted IMPRESSION: Placement of a central venous catheter without visualization of a pneumothorax
[2018-03-07] MEDS: SODIUM CHLORIDE 0.9% 10ML INJ IV SCH ×2 (10:34→21:12)
--- NOTE | 2018-03-07 12:41 | OP ---
Date of Procedure: 03/07/2018 Surgeon: Mundo Auguste MD Preoperative Diagnosis: Acute renal failure. Postoperative Diagnosis: Acute renal failure. Procedure: Placement of right internal jugular Tesio catheter and interpretation of intraoperative f luoroscopy. Estimated Blood Loss: Minimal. Specimen: None. Findings: Normal anatomy. Anesthesia: MAC. Complications: None. Disposition: The patient tolerated the procedure in stable condition and taken to Recovery in good g eneral condition. Operative Note: The patient brought to the OR and placed in supine position. MAC anesthesia was beg un. The patient was prepped and draped in usual sterile fashion. Lidocaine 1% was infiltrated local ly. An 18-gauge needle was used to access the right IJ vein. Guidewire was passed. Position was co nfirmed with fluoroscopy and then counterincisions made on the right anterior chest. Tunneling devic e was used to tunnel the catheter between the 2 wounds and then Seldinger technique used and tip of t he catheter placed in the superior vena cava under fluoroscopy. The catheter had good blood flow and was flushed with heparin and packed with heparin and then 3-0 chromic was used to approximate subcut aneous tissue and close the skin. A 3-0 nylon used to secure the tube to the chest wall. Sterile dressing was applied. The patient was awakened and taken to Recovery in good general condition. Jolene st x-ray has been ordered. /MODL Voice ID: [id number] Report ID: [id number]
[2018-03-07] MEDS: EPOETIN ALFA 10,000 UNIT/ML VIAL IV SCH (16:52)
--- NOTE | 2018-03-07 18:51 | EKG ---
Test Date: 2018-03-07 Test Time: 08:18:41 Manager Category: CHAD MEASUREMENT RESULTS: Intervals: Rate: 56 [place]: 274 QRSD: 186 QT: 524 QTc: 505 [place]: P: 53 [place]: 274 QRS: -40 T: 8 INTERPRETIVE STATEMENTS: Sinus bradycardia with 1st degree AV block Left axis deviation Left ventricular hypertrophy with QRS widening Abnormal ECG Compared to ECG 02/24/2018 16:50:07 Left-axis deviation now present Left ventricular hypertrophy now present Sinus rhythm no longer present Right bundle-branch block no longer present Electronically Signed On 03-07-18 18:47:38 CDT by Malik Artis
--- NOTE | 2018-03-07 22:49 | P.CNS ---
Date of Consult: 03/07/18 Reason for Consult: ESRD Requesting Physician: Keyon Love Primary Care Provider: Dr. Love Chief Complaint: ERVIN History of Present Illness: 83 yo WM HTN, CHF presented to the hospital as a direct admission for severe, progressive acute on chronic renal failure in the setting of a partial nephrectomy. Failed outpt therapy and had a recent admission complicated by acute CHF. No modifying fx. Seen and examined on HD. Has a known kidney lesion that may require a nephrectomy soon. Case discussed with Dr. Love. Allergies adhesive tape Adverse Reaction (Verified 03/06/18 20:27) Itching codeine Adverse Reaction (Verified 03/06/18 20:27) Itching morphine Adverse Reaction (Verified 03/06/18 20:27) Itching Home medications list reviewed: Yes Home Medications: Acetaminophen/Diphenhydramine [Tylenol Pm Ex-Strength Caplet] 2 tab PO PRN 02/24 Amlodipine Besylate 10 mg PO DAILY 02/24/18 Antiox#10/Om3/Dha/Epa/Lut/Zeax [I-Caps with Lutein-[place] 3 Sfg] 1 tab PO DAILY 02/24/18 Cholecalciferol (Vitamin D3) [Vitamin D3] 1 cap PO SEECOM 02/24/18 Cyanocobalamin (Vitamin B-12) [Vitamin B-12] 1 tab PO BEDTIME 02/24/18 Docusate Sodium [Stool Softener] 100 mg PO BEDTIME 02/24/18 Febuxostat [Uloric] 80 mg PO DAILY 02/24/18 L-Lysine 500 mg PO DAILY 02/24/18 Metoprolol Succinate [Toprol Xl] 100 mg PO BID 02/24/18 Omeprazole [Prilosec] 40 mg PO DAILYPRN PRN 02/24/18 Ranitidine HCl [Acid Design Analyst] 150 mg PO BEDTIME 02/24/18 Warfarin Sodium 3 mg PO DAILY 02/24/18 Calcium Acetate 1 cap PO TID 30 Days #90 capsule 02/27/18 Furosemide [Lasix*] 40 mg PO BIDL 90 Days #180 tab 02/27/18 Sodium Bicarbonate 325 mg PO DAILY 03/06/18 Triamcinolone 0.1% Crm [Kenalog 0.1% Cream*] 1 appl TOP PRN PRN 03/06/18 - Past Medical/Surgical History Diabetic: No -: HTN -: Stage 4 kidney -: DVT filter -: Kidney Ca -: 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 -: DVT filter placed -: cataract sx -: hemhorroid sx -: bilateral knee sx - Family History Mother Medical History: Heart disease, Hypertension, Cancer Notes: breast cancer [place] Father Medical History: Heart disease, Hypertension Notes: CHF Sister Medical History: Hypertension, Kidney disease Notes: breast removed d/t precancer - Social History Alcohol use: No CD- Drugs: No Caffeine use: No Place of Residence: Home Review of Systems 10-point ROS is otherwise unremarkable General: Weakness Respiratory: SOB with Excertion Cardiovascular: Edema Physical Examination Temp Pulse Resp BP Pulse Ox 97.3 F 64 18 134/61 95 03/07/18 20:00 03/07/18 20:44 03/07/18 20:00 03/07/18 20:44 03/07/18 20:00 General: Oriented x3, Cooperative HEENT: Atraumatic, Mucous membr. moist/pink Neck: Supple Respiratory: Clear to auscultation bilaterally Cardiovascular: Regular rate/rhythm, No rubs, Edema Gastrointestinal: Soft and benign, Non-distended, No guarding Musculoskeletal: No clubbing, No contractures, No warmth Integumentary: No rashes, No cyanosis, Skin lesion (Venous stasis of the LE) Neurological: Normal speech Urinary: Dialysis catheter External genitalia: No edema Laboratory Data (last 24 hrs) 03/07/18 05:07: Sodium 143, Potassium 3.6, BUN 152 H, Creatinine 8.20 H*, Glucose 94, Uric Acid 5.8, Phosphorus 8.3 H, Magnesium 2.7 H D 03/07/18 05:07: PT 18.2 H, INR 1.54 03/07/18 05:07: WBC 10.4 D, Hgb 10.0 L, Hct 29.5 L, Plt Count 214 Imagings Data: CXR: No PTX Conclusions/Impression: ESRD with HD initiated [id number]. Progressive CKD V with proteinuria. Left partial nephrectomy. Acidosis. Chronic Diastolic CHF. HTN with CKD. Anemia in chronic illness. PRASANNA/ Secondary HyperPTH. Gout. Right renal lesion suspicious for RCC followed by Dr. Alan. P/ Continue current POC and Medications. HD initiated today. Seen and examined on HD. Start Renvela and Vitamin D. No NSAIDs. AM labs. Daily weight. Arrange placement at the [facility]. Thank you kindly for the consultation.
[2018-03-08] MEDS: METOPROLOL XL 100 MG TAB PO SCH ×2 (05:50→17:12)
[2018-03-08 06:38] LABS: Absolute Lymphocytes (CBC) 0.9 K/uL (0.7-4.9); Absolute Monocytes 0.9 K/uL (0.1-1.3); Absolute Neutrophil 6.6 K/uL (1.8-8.0); Basophils % 0.6 % (0-1.3); Eosinophils % 2.9 % (0-4.4); Hematocrit 31.1 % (39.6-49.0); MCH 32.6 pg (27.0-35.0); MCV 94.6 fL (80-100); MPV 9.6 fL (7.6-11.3); Monocytes % 10.3 % (3.3-12.3); RBC Red Blood Cell Count 3.29 M/uL (4.33-5.43)
[2018-03-08 06:48] LABS: Potassium 3.6 mmol/L (3.5-5.1)
[2018-03-08] MEDS: SEVELAMER CARBONATE 800 MG TABLET PO SCH ×3 (09:03→17:12)
[2018-03-08] MEDS: CALCITROL 0.25 MCG CAP PO SCH (09:03)
[2018-03-08] MEDS: AMLODIPINE 10 MG TAB PO SCH (09:04)
[2018-03-08] MEDS: SODIUM CHLORIDE 0.9% 10ML INJ IV SCH ×2 (09:04→21:12)
[2018-03-08] MEDS: VITAMIN D 5,000 UNIT CAP PO SCH (09:04)
[2018-03-08] MEDS: EPOETIN ALFA 10,000 UNIT/ML VIAL IV SCH (10:44)
--- NOTE | 2018-03-08 16:18 | PN ---
The patient tolerated the catheter insertion without a problem, although he still feels considerably weak. He is starting to undergo his dialysis. HR/MODL Voice ID: [id number] Report ID: [id number]
[2018-03-09] MEDS: METOPROLOL XL 100 MG TAB PO SCH ×2 (05:51→17:05)
[2018-03-09] MEDS: VITAMIN D 5,000 UNIT CAP PO SCH (08:27)
[2018-03-09] MEDS: CALCITROL 0.25 MCG CAP PO SCH (08:27)
[2018-03-09] MEDS: SEVELAMER CARBONATE 800 MG TABLET PO SCH ×3 (08:27→17:05)
[2018-03-09] MEDS: AMLODIPINE 10 MG TAB PO SCH (08:28)
[2018-03-09] MEDS: SODIUM CHLORIDE 0.9% 10ML INJ IV SCH ×2 (08:30→21:32)
--- NOTE | 2018-03-09 08:46 | P.PN ---
Date of Service: 03/08/18 Vital Signs Temp Pulse Resp BP Pulse Ox 97.8 F 58 18 138/64 90 L 03/09/18 04:00 03/09/18 08:28 03/09/18 04:00 03/09/18 08:28 03/09/18 04:00 Medications Amlodipine Besylate (Norvasc) 10 mg PO DAILY BASSAM Stop: 04/06/18 09:01 Last Admin: 03/09/18 08:28 Dose: 10 mg Calcitriol (Rocaltrol) 0.5 mcg PO DAILY BASSAM Stop: 04/06/18 09:01 Last Admin: 03/09/18 08:27 Dose: 0.5 mcg Cholecalciferol (Vitamin D 5,000 Iu Cap) 5,000 unit PO DAILY BASSAM Stop: 04/06/18 09:01 Last Admin: 03/09/18 08:27 Dose: 5,000 unit Epoetin Cam (Procrit) 10,000 unit IV EVERY HD BASSAM Stop: 04/05/18 21:46 Last Admin: 03/08/18 10:44 Dose: 10,000 unit Heparin Sodium (Porcine) (Heparin 1,000 Units/Ml) 6,000 unit IJ EVERY HD PRN PRN Reason: FLUSH AFTER EACH USE Stop: 04/05/18 21:43 Last Admin: 03/08/18 10:45 Dose: 6,000 unit Cefazolin Sodium (Ancef 1 Gm/50 Ml Ns Ivpb) 1 gm in 50 mls @ 100 mls/hr IVPB OC BASSAM; Protocol Stop: 04/05/18 20:46 Last Admin: 03/07/18 08:55 Dose: 50 mls Albumin Human (Albumin 25%) 50 mls @ 100 mls/hr IV EVERY HD BASSAM Stop: 04/05/18 22:01 Mannitol (Mannitol 12.5 Gm/50 Ml Vial) 12.5 gm IV EVERY HD PRN PRN Reason: BP support at hemodialysis Stop: 04/05/18 21:43 Metoprolol Succinate (Toprol Xl) 100 mg PO BID 6AM 6PM BASSAM Stop: 04/06/18 06:01 Last Admin: 03/09/18 05:51 Dose: 100 mg Sevelamer Carbonate (Renvela) 1,600 mg PO TIDWM BASSAM Stop: 04/07/18 08:01 Last Admin: 03/09/18 08:27 Dose: 1,600 mg Sodium Chloride (Sodium Chloride 10 Ml Inj) 10 ml IV BID BASSAM Stop: 04/05/18 21:01 Last Admin: 03/09/18 08:30 Dose: 10 ml Tramadol/Acetaminophen (Ultracet 37.5 Mg/Apap 325 Mg Per Tab) 1 tab PO Q6H PRN PRN Reason: PAIN Stop: 04/06/18 09:44 Last Admin: 03/07/18 12:09 Dose: 1 tab Assessment/ Plan: Nephrology. Doing well. Tolerated HD well. Seen and examined on HD. CPS stable without CP or SOB. No acute events overnight. Vitals, medications, blood work and imaging reviewed in the chart. General: Oriented x3, Cooperative HEENT: Atraumatic, Mucous membr. moist/pink Neck: Supple Respiratory: Clear to auscultation bilaterally Cardiovascular: Regular rate/rhythm, No rubs, Edema Gastrointestinal: Soft and benign, Non-distended, No guarding Musculoskeletal: No clubbing, No contractures, No warmth Integumentary: No rashes, No cyanosis, Skin lesion (Venous stasis of the LE) Neurological: Normal speech Urinary: Dialysis catheter External genitalia: No edema Laboratory Data (last 24 hrs) 03/07/18 05:07: Sodium 143, Potassium 3.6, BUN 152 H, Creatinine 8.20 H*, Glucose 94, Uric Acid 5.8, Phosphorus 8.3 H, Magnesium 2.7 H D 03/07/18 05:07: PT 18.2 H, INR 1.54 03/07/18 05:07: WBC 10.4 D, Hgb 10.0 L, Hct 29.5 L, Plt Count 214 Imagings Data: CXR: No PTX Conclusions/Impression: ESRD with HD initiated 7190826. Progressive CKD V with proteinuria. Left partial nephrectomy. Acidosis. Chronic Diastolic CHF. HTN with CKD. Anemia in chronic illness. PRAASNNA/ Secondary HyperPTH. Gout. Right renal lesion suspicious for RCC followed by Dr. Alan. P/ Continue current POC and Medications. Second HD today without difficulty. Seen and examined on HD. Renal diet. No NSAIDs. OOB as tolerated. Consider PT as needed. AM labs. Daily weight. Will consider a CT of the kidney on Saturday prior to HD to further evaluate renal lesion. Arrange placement at the [facility]. Case discussed with Dr. Love.
--- NOTE | 2018-03-09 17:18 | PN ---
Date of Progress Note: 02/14/2018 Subjective: The patient states he feels somewhat better. Obviously tolerating the dialysis quite we ll physically and chemically as well as his creatinine is now down to 5.3. HR/MODL Voice ID: [id number] Report ID: [id number]
[2018-03-09 18:59] LABS: HBsAG Nonreactive (Nonreactive)
--- NOTE | 2018-03-09 19:39 | PN ---
Date of Progress Note: 03/09/2018 Subjective: The patient states he still feels better than when he started, but still kind of weak. He was encouraged to be increase his mobilization. He is to continue with his dialysis Saturday and pr obably will be discharged once outpatient dialysis unit is set up for him. HR/MODL Voice ID: [id number] Report ID: [id number]
--- NOTE | 2018-03-09 21:53 | P.PN ---
Date of Service: 03/09/18 Vital Signs Temp Pulse Resp BP Pulse Ox 98.2 F 63 18 132/61 95 03/09/18 20:00 03/09/18 20:00 03/09/18 20:00 03/09/18 20:00 03/09/18 20:00 Medications Amlodipine Besylate (Norvasc) 10 mg PO DAILY BASSAM Stop: 04/06/18 09:01 Last Admin: 03/09/18 08:28 Dose: 10 mg Calcitriol (Rocaltrol) 0.5 mcg PO DAILY BASSAM Stop: 04/06/18 09:01 Last Admin: 03/09/18 08:27 Dose: 0.5 mcg Cholecalciferol (Vitamin D 5,000 Iu Cap) 5,000 unit PO DAILY BASSAM Stop: 04/06/18 09:01 Last Admin: 03/09/18 08:27 Dose: 5,000 unit Epoetin Cam (Procrit) 10,000 unit IV EVERY HD BASSAM Stop: 04/05/18 21:46 Last Admin: 03/08/18 10:44 Dose: 10,000 unit Heparin Sodium (Porcine) (Heparin 1,000 Units/Ml) 6,000 unit IJ EVERY HD PRN PRN Reason: FLUSH AFTER EACH USE Stop: 04/05/18 21:43 Last Admin: 03/08/18 10:45 Dose: 6,000 unit Cefazolin Sodium (Ancef 1 Gm/50 Ml Ns Ivpb) 1 gm in 50 mls @ 100 mls/hr IVPB OC BASSAM; Protocol Stop: 04/05/18 20:46 Last Admin: 03/07/18 08:55 Dose: 50 mls Albumin Human (Albumin 25%) 50 mls @ 100 mls/hr IV EVERY HD BASSAM Stop: 04/05/18 22:01 Mannitol (Mannitol 12.5 Gm/50 Ml Vial) 12.5 gm IV EVERY HD PRN PRN Reason: BP support at hemodialysis Stop: 04/05/18 21:43 Metoprolol Succinate (Toprol Xl) 100 mg PO BID 6AM 6PM BASSAM Stop: 04/06/18 06:01 Last Admin: 03/09/18 17:05 Dose: 100 mg Sevelamer Carbonate (Renvela) 1,600 mg PO TIDWM BASSAM Stop: 04/07/18 08:01 Last Admin: 03/09/18 17:05 Dose: 1,600 mg Sodium Chloride (Sodium Chloride 10 Ml Inj) 10 ml IV BID BASSAM Stop: 04/05/18 21:01 Last Admin: 03/09/18 21:32 Dose: 10 ml Tramadol/Acetaminophen (Ultracet 37.5 Mg/Apap 325 Mg Per Tab) 1 tab PO Q6H PRN PRN Reason: PAIN Stop: 04/06/18 09:44 Last Admin: 03/07/18 12:09 Dose: 1 tab Lab Results (last 24 hrs) 03/07/18 13:57: Hep Bs Antigen Nonreactive, Hep Bs Ag Confirmation Report, Hep Bs Antibody Nonreactive, Hep Bs Antibody, Quant <5 L, Hep B Core Total Ab Nonreactive, Hep B Core IgM Ab Not indicated, Hepatitis C Antibody Nonreactive, Hep C Ab Signal/Cutoff 0.01 Assessment/ Plan: Nephrology. Doing well. CPS stable without CP or SOB. No acute events overnight. Good appetite. Vitals, medications, blood work and imaging reviewed in the chart. General: Oriented x3, Cooperative HEENT: Atraumatic, Mucous membr. moist/pink Neck: Supple Respiratory: Clear to auscultation bilaterally Cardiovascular: Regular rate/rhythm, No rubs, Edema Gastrointestinal: Soft and benign, Non-distended, No guarding Musculoskeletal: No clubbing, No contractures, No warmth Integumentary: No rashes, No cyanosis, Skin lesion (Venous stasis of the LE) Neurological: Normal speech Urinary: Dialysis catheter External genitalia: No edema Laboratory Data (last 24 hrs) 03/07/18 05:07: Sodium 143, Potassium 3.6, BUN 152 H, Creatinine 8.20 H*, Glucose 94, Uric Acid 5.8, Phosphorus 8.3 H, Magnesium 2.7 H D 03/07/18 05:07: PT 18.2 H, INR 1.54 03/07/18 05:07: WBC 10.4 D, Hgb 10.0 L, Hct 29.5 L, Plt Count 214 Imagings Data: CXR: No PTX Conclusions/Impression: ESRD with HD initiated 7190826. Progressive CKD V with proteinuria. Left partial nephrectomy. Acidosis. Chronic Diastolic CHF. HTN with CKD. Anemia in chronic illness. PRASANNA/ Secondary HyperPTH. Gout. Right renal lesion suspicious for RCC followed by Dr. Alan. P/ Continue current POC and Medications. Next HD Saturday. Arrange for renal mass protocol CT prior to HD on Saturday; will send results to Dr. Alan. Renal diet. No NSAIDs. OOB as tolerated. Consider PT as needed. AM labs. Daily weight. Arrange placement at the [facility] Unit.
[2018-03-10] MEDS: METOPROLOL XL 100 MG TAB PO SCH ×2 (06:01→18:02)
[2018-03-10 06:07] LABS: Absolute Lymphocytes (CBC) 1.2 K/uL (0.7-4.9); Absolute Monocytes 1.1 K/uL (0.1-1.3); Absolute Neutrophil 6.1 K/uL (1.8-8.0); Basophils % 0.7 % (0-1.3); Eosinophils % 6.5 % (0-4.4); Hematocrit 31.3 % (39.6-49.0); Lymphocytes % 12.8 % (15.3-44.8); MCH 32.2 pg (27.0-35.0); MCV 96.2 fL (80-100); MPV 9.2 fL (7.6-11.3); Monocytes % 12.4 % (3.3-12.3); RBC Red Blood Cell Count 3.26 M/uL (4.33-5.43)
[2018-03-10 06:32] LABS: Albumin 2.6 g/dL (3.4-5.0); Bilirubin Total 0.5 mg/dL (0.2-1.0); Magnesium 2.1 mg/dL (1.8-2.4); Phosphorus 3.4 mg/dL (2.5-4.9); Potassium 3.7 mmol/L (3.5-5.1); Protein, Total 6.1 g/dL (6.4-8.2); Uric Acid 4.4 mg/dL (3.5-7.2)
[2018-03-10] MEDS: AMLODIPINE 10 MG TAB PO SCH (09:00)
[2018-03-10] MEDS: CALCITROL 0.25 MCG CAP PO SCH (09:54)
[2018-03-10] MEDS: VITAMIN D 5,000 UNIT CAP PO SCH (09:54)
[2018-03-10] MEDS: SEVELAMER CARBONATE 800 MG TABLET PO SCH ×3 (09:54→18:02)
[2018-03-10] MEDS: SODIUM CHLORIDE 0.9% 10ML INJ IV SCH ×2 (09:55→21:41)
--- NOTE | 2018-03-10 10:11 | RAD REPORT ---
EXAM DESCRIPTION: CT - Abdomen Pelvis W/Wo Contrast - 03/10/2018 9:01 am CLINICAL HISTORY: Right renal mass, flank pain COMPARISON: No comparisons TECHNIQUE: Axial non-contrast CT imaging was performed. Following this, biphasic contrast enhanced i maging through the abdomen and pelvis was performed with coronal and sagittal reformatted images. All CT scans are performed using dose optimization technique as appropriate and may include automated exposure control or mA/KV adjustment according to patient size. FINDINGS: The lower lung dumont are clear. Mild diffuse fatty liver. Multiple gallstones are present in the gallbladder. No liver mass is seen. The spleen, pancreas and adrenal glands are normal. A large irregular solid mass is seen involving the inferior right kidney containing solid and cystic components, in totality measuring 8 x 6 cm. This mass since most compatible with renal cell carcinoma . Postsurgical clips are seen adjacent to the superior medial aspect of the left kidney. A fatty mass w ith thin rim calcification is seen emanating off the inferior posterior aspect of the left kidney wenceslao suring 5.8 x 4.4 cm. Small fat containing ventral hernia. Heavy aortic atherosclerosis. No free fluid, free air or bowel o bstruction. No bulky adenopathy is seen in the abdomen or pelvis. Lumbosacral degenerative changes are present. No lytic or blastic bone lesion. IMPRESSION: Large complex solid mass involving the inferior right kidney measuring 8 x 6 cm likely r epresents RCC. Soft tissue and fat containing lesion inferior left kidney with thin rim calcification measuring 5.8 x 4.4 cm is noted. The appearance is not typical for AML, and thus raises suspicion of fat containing RCC. Cholelithiasis.
--- NOTE | 2018-03-10 13:55 | P.PN ---
Date of Service: 03/10/18 Vital Signs Temp Pulse Resp BP Pulse Ox 98.0 F 55 16 124/62 98 03/10/18 12:00 03/10/18 12:00 03/10/18 12:00 03/10/18 12:00 03/10/18 12:00 Medications Amlodipine Besylate (Norvasc) 10 mg PO DAILY BASSAM Stop: 04/06/18 09:01 Last Admin: 03/10/18 09:00 Dose: Not Given Calcitriol (Rocaltrol) 0.5 mcg PO DAILY BASSAM Stop: 04/06/18 09:01 Last Admin: 03/10/18 09:54 Dose: 0.5 mcg Cholecalciferol (Vitamin D 5,000 Iu Cap) 5,000 unit PO DAILY BASSAM Stop: 04/06/18 09:01 Last Admin: 03/10/18 09:54 Dose: 5,000 unit Epoetin Cam (Procrit) 10,000 unit IV EVERY HD BASSAM Stop: 04/05/18 21:46 Last Admin: 03/08/18 10:44 Dose: 10,000 unit Heparin Sodium (Porcine) (Heparin 1,000 Units/Ml) 6,000 unit IJ EVERY HD PRN PRN Reason: FLUSH AFTER EACH USE Stop: 04/05/18 21:43 Last Admin: 03/08/18 10:45 Dose: 6,000 unit Cefazolin Sodium (Ancef 1 Gm/50 Ml Ns Ivpb) 1 gm in 50 mls @ 100 mls/hr IVPB OC BASSAM; Protocol Stop: 04/05/18 20:46 Last Admin: 03/07/18 08:55 Dose: 50 mls Albumin Human (Albumin 25%) 50 mls @ 100 mls/hr IV EVERY HD BASSAM Stop: 04/05/18 22:01 Mannitol (Mannitol 12.5 Gm/50 Ml Vial) 12.5 gm IV EVERY HD PRN PRN Reason: BP support at hemodialysis Stop: 04/05/18 21:43 Metoprolol Succinate (Toprol Xl) 100 mg PO BID 6AM 6PM BASSAM Stop: 04/06/18 06:01 Last Admin: 03/10/18 06:01 Dose: 100 mg Sevelamer Carbonate (Renvela) 1,600 mg PO TIDWM BASSAM Stop: 04/07/18 08:01 Last Admin: 03/10/18 12:26 Dose: 1,600 mg Sodium Chloride (Sodium Chloride 10 Ml Inj) 10 ml IV BID BASSAM Stop: 04/05/18 21:01 Last Admin: 03/10/18 09:55 Dose: 10 ml Tramadol/Acetaminophen (Ultracet 37.5 Mg/Apap 325 Mg Per Tab) 1 tab PO Q6H PRN PRN Reason: PAIN Stop: 04/06/18 09:44 Last Admin: 03/07/18 12:09 Dose: 1 tab Lab Results (last 24 hrs) 03/10/18 05:33: Sodium 145, Potassium 3.7, Chloride 112 H, Carbon Dioxide 24, BUN 55 H D, Creatinine 4.70 H, Estimated GFR 12 L, Glucose 88, Uric Acid 4.4, Calcium 8.0 L, Phosphorus 3.4, Magnesium 2.1 D, Total Bilirubin 0.5, AST 15, ALT 11 L, Alkaline Phosphatase 48, Serum Total Protein 6.1 L, Albumin 2.6 L, Globulin 3.5, Albumin/Globulin Ratio 0.7 L 03/10/18 05:33: WBC 9.1, RBC 3.26 L, Hgb 10.5 L, Hct 31.3 L, MCV 96.2, MCH 32.2 , MCHC 33.5, RDW 13.1, Plt Count 175, MPV 9.2, Neutrophils % 67.6, Lymphocytes % 12.8 L, Monocytes % 12.4 H, Eosinophils % 6.5 H, Basophils % 0.7, Absolute Neutrophils 6.1, Absolute Lymphocytes 1.2, Absolute Monocytes 1.1, Absolute Eosinophils 0.6 H, Absolute Basophils 0.1 03/07/18 13:57: Hep Bs Antigen Nonreactive, Hep Bs Ag Confirmation Report, Hep Bs Antibody Nonreactive, Hep Bs Antibody, Quant <5 L, Hep B Core Total Ab Nonreactive, Hep B Core IgM Ab Not indicated, Hepatitis C Antibody Nonreactive, Hep C Ab Signal/Cutoff 0.01 Assessment/ Plan: Nephrology. Doing well. CPS stable without CP or SOB. No acute events overnight. Seen and examined on HD. Vitals, medications, blood work and imaging reviewed in the chart. General: Oriented x3, Cooperative HEENT: Atraumatic, Mucous membr. moist/pink Neck: Supple Respiratory: Clear to auscultation bilaterally Cardiovascular: Regular rate/rhythm, No rubs, Edema trace. Gastrointestinal: Soft and benign, Non-distended, No guarding Musculoskeletal: No clubbing, No contractures, No warmth Integumentary: No rashes, No cyanosis, Skin lesion (Venous stasis of the LE) Neurological: Normal speech Urinary: Dialysis catheter External genitalia: No edema Laboratory Data (last 24 hrs) 03/07/18 05:07: Sodium 143, Potassium 3.6, BUN 152 H, Creatinine 8.20 H*, Glucose 94, Uric Acid 5.8, Phosphorus 8.3 H, Magnesium 2.7 H D 03/07/18 05:07: PT 18.2 H, INR 1.54 03/07/18 05:07: WBC 10.4 D, Hgb 10.0 L, Hct 29.5 L, Plt Count 214 Imagings Data: CXR: No PTX Conclusions/Impression: ESRD with HD initiated [id number]. Progressive CKD V with proteinuria. Left partial nephrectomy. Acidosis. Chronic Diastolic CHF. HTN with CKD. Anemia in chronic illness. PRASANNA/ Secondary HyperPTH. Gout. Right renal lesion suspicious for RCC followed by Dr. Alan. P/ Continue current POC and Medications. Next HD Saturday. Renal diet. No NSAIDs. OOB as tolerated. Consider PT as needed. AM labs. Daily weight. Arrange placement at the [facility] D[facility] Unit. CT results consistent with RCC; Fax the results to Dr. Alan and advised the patient to follow up zoran.
[2018-03-10] MEDS: EPOETIN ALFA 10,000 UNIT/ML VIAL IV SCH (15:34)
[2018-03-11] MEDS: METOPROLOL XL 100 MG TAB PO SCH ×2 (05:06→17:22)
[2018-03-11] MEDS: SEVELAMER CARBONATE 800 MG TABLET PO SCH ×3 (09:01→17:23)
[2018-03-11] MEDS: VITAMIN D 5,000 UNIT CAP PO SCH (09:01)
[2018-03-11] MEDS: CALCITROL 0.25 MCG CAP PO SCH (09:01)
[2018-03-11] MEDS: AMLODIPINE 10 MG TAB PO SCH (09:01)
[2018-03-11] MEDS: SODIUM CHLORIDE 0.9% 10ML INJ IV SCH (09:02)
--- NOTE | 2018-03-11 18:27 | PN ---
Date of Progress Note: 03/10/2018 The patient continues to undergo dialysis. CT scan did reveal obvious suspicious lesion on the right . This has been forwarded to the urologist in [place], and depending on arrangements, he can be disc harged to continue outpatient dialysis until his [place] arrangements have been made for a surgical p rocedure. HR/MODL Voice ID: [id number] Report ID: [id number]
--- NOTE | 2018-03-11 21:19 | P.PN ---
Date of Service: 03/11/18 Vital Signs Temp Pulse Resp BP Pulse Ox 97.5 F 60 18 129/59 L 97 03/11/18 16:00 03/11/18 16:00 03/11/18 16:00 03/11/18 17:22 03/11/18 16:00 Assessment/ Plan: Nephrology. Doing well. CPS stable without CP or SOB. No acute events overnight. Vitals, medications, blood work and imaging reviewed in the chart. General: Oriented x3, Cooperative HEENT: Atraumatic, Mucous membr. moist/pink Neck: Supple Respiratory: Clear to auscultation bilaterally Cardiovascular: Regular rate/rhythm, No rubs, Edema trace. Gastrointestinal: Soft and benign, Non-distended, No guarding Musculoskeletal: No clubbing, No contractures, No warmth Integumentary: No rashes, No cyanosis, Skin lesion (Venous stasis of the LE) Neurological: Normal speech Urinary: Dialysis catheter External genitalia: No edema Laboratory Data (last 24 hrs) 03/07/18 05:07: Sodium 143, Potassium 3.6, BUN 152 H, Creatinine 8.20 H*, Glucose 94, Uric Acid 5.8, Phosphorus 8.3 H, Magnesium 2.7 H D 03/07/18 05:07: PT 18.2 H, INR 1.54 03/07/18 05:07: WBC 10.4 D, Hgb 10.0 L, Hct 29.5 L, Plt Count 214 Imagings Data: CXR: No PTX Conclusions/Impression: ESRD with HD initiated [id number]. Progressive CKD V with proteinuria. Left partial nephrectomy. Acidosis. Chronic Diastolic CHF. HTN with CKD. Anemia in chronic illness. PRASANNA/ Secondary HyperPTH. Gout. Right renal lesion suspicious for RCC followed by Dr. Alan. P/ Continue current POC and Medications. Next HD at the clinic. Renal diet. No NSAIDs. OOB as tolerated. Consider PT as needed. AM labs. Daily weight. Placement at the [facility] Dialysis Unit has been arranged. CT results consistent with RCC; Fax the results to Dr. Alan and advised the patient to follow up zoran. Case discussed at length with the and patient.
--- NOTE | 2018-03-12 19:23 | PN ---
Date of Progress Note: 03/11/2018 Subjective: The patient continues to undergoes dialysis, arrangements have been made for him to see the urologist in a week. In the meantime, he will be dialyzed as an outpatient and he has had some i mprovement in both mentation and physical ability and he can be discharged to follow up with Nephrolo gy, Urology, and myself in fair condition. HR/MODL Voice ID: [id number] Report ID: [id number]
--- NOTE | 2018-04-14 21:04 | DS ---
Date of Discharge: 03/11/2018 Hospital Course: The patient was admitted to the hospital on 03/06, for the dialysis for acute renal failure on top of chronic renal failure. This situation could not be handled as an outpatient, ther xavi admitted, seen by Nephrology. Tesio catheter was inserted. He was started on dialysis. We ra ther marked improvement immediately as far as his chemistries were concerned. However, his symptomat ology improves fully. During his hospital stay, he was maintained on his usual medication for his re nal failure and cardiac disease. Electrolyte balance was maintained. Blood pressure was controlled. Repeat CT did reveal the right renal lesion. He was referred to his urologist in [place]. He unde rwent dialysis, which he tolerated quite well. Arrangements were made to continue with dialysis as a n outpatient, and he was discharged in fair condition on 03/11. Final Diagnoses: Acute renal failure on top of chronic renal failure, renal cell carcinoma on the le ft with partial nephrectomy, right renal lesion suspicious for renal cell carcinoma, hypertension, co ntrolled congestive heart failure, controlled anemia of chronic disease. HR/MODL Voice ID: [id number] Report ID: [id number]
--- NOTE | 2018-04-14 21:23 | HP ---
Date of Admission: 03/06/2018 Chief Complaint: Renal failure. History Of Present Illness: The patient was recently hospitalized for an episode of CHF on top of hi s chronic renal insufficiency. This was treated medically, seemed to be under control when he was di scharged. However, following his discharge, he continued to see a rise in his creatinine. He contin ued to get weaker. In an attempt to stabilize him for probable biopsy with various outpatient mechanisms were tried to control his failure, thinking that possible he could und ergo dialysis at the same time. However, due to progression of disease, creatinine was markedly elev ated, and progressive weakness, we decided to admit him, start dialysis, and then refer him to [facility]. This was therefore done on 03/06. He was admitted for a Tesio catheter and started dialysis in [facility] and set him up for outpatient dialysis. Past Medical History: As above. The patient has had numerous complications as far as his kidney sit uation is concerned. He had a partial left nephrectomy for renal cell carcinoma a number of years ag o, tolerated this well and they now noticed a lesion on his opposite kidney with some progression of his renal insufficiency as mentioned. He had 1 episode of CHF necessitating hospitalization. Also h ad a DVT with filter placement a number of years ago. His hypertension in relatively good control an d does have anemia of chronic disease, mild. Family History: Noncontributory. Social History: Nonsmoker, nondrinker. Physical Examination: General: The patient is a rather uncomfortable appearing elderly male. Vital Signs: Stable. Head and Neck: Normocephalic. Pupils are equal and reactive to light and accommodation. Fundi negative. Trachea midline. Thyroid not palpable. ENT: Negative. Chest: Clear to P and A. Cardiovascular : PMI midclavicular line. Heart sounds normal. Peripheral pulses present and equal bilaterally. A bdomen: Obese. No organomegaly. Bowel sounds present. Extremities: Moderate dehydration. Good t one and movement bilaterally. Reflexes physiologic. Rectal: Deferred. Impression: Acute renal failure Plan: The patient will be admitted. Tesio catheter be inserted. He will be started on dialysis and to continue on control CHF symptoms. Once he is stabilized, hospital dialysis to be set up for outp atient treatment. HR/MODL Voice ID: [id number]
== END 2018-03-11 18:42 | disposition home or self-care (01) | DRG 291 ==
LOC: 4TH 19:21
PROVIDERS: ADMIT Family Medicine; ATTEND Family Medicine
PROC: 02HV33Z Insertion of Infusion Device into Superior Vena Cava, Percutaneous Approach (ICD-10-PCS; 2018-03-07)
PROC: 5A1D70Z Performance of Urinary Filtration, Intermittent, Less than 6 Hours Per Day (ICD-10-PCS; 2018-03-07)
PROC: 0JH63XZ Insertion of Tunneled Vascular Access Device into Chest Subcutaneous Tissue and Fascia, Percutaneous Approach (ICD-10-PCS; principal; 2018-03-07 09:30)
DX: I13.2 Hypertensive heart and chronic kidney disease with heart failure and with stage 5 chronic kidney disease, or end stage renal disease (principal); N18.6 End stage renal disease; I50.32 Chronic diastolic (congestive) heart failure; N25.0 Renal osteodystrophy; D63.1 Anemia in chronic kidney disease; N25.81 Secondary hyperparathyroidism of renal origin; C64.1 Malignant neoplasm of right kidney, except renal pelvis; E87.2 Acidosis; M10.9 Gout, unspecified; Z85.528 Personal history of other malignant neoplasm of kidney; Z90.5 Acquired absence of kidney; Z88.5 Allergy status to narcotic agent; Z91.048 Other nonmedicinal substance allergy status; Z79.01 Long term (current) use of anticoagulants
CPT/HCPCS: 36415; 71045; 74178; 76000; 80048; 80053; 82565; 83735; 84100; 84550; 85025; 85610; 85730; 86317; 86704; 86706; 86803; 87340; 90935; 93005; C1752; J0690; J1644; J2250; J3010; Q4081; Q9967

== ENCOUNTER 2019-05-22 06:51 | Inpatient (IN) | payer OTHER ==
[2019-05-22 08:50] LABS: Absolute Lymphocytes (CBC) 1.3 K/uL (0.7-4.9); Basophils % 0.6 % (0-1.3); Hematocrit 29.6 % (39.6-49.0); Lymphocytes % 14.8 % (15.3-44.8); MPV 9.4 fL (7.6-11.3); RBC Red Blood Cell Count 3.09 M/uL (4.33-5.43)
[2019-05-22 09:06] LABS: Protime INR 1.58
[2019-05-22 09:25] LABS: Albumin 3.4 g/dL (3.4-5.0); Bilirubin Direct 0.1 mg/dL (0-0.2); Bilirubin Total 0.4 mg/dL (0.2-1.0); Magnesium 2.6 mg/dL (1.8-2.4); Protein, Total 7.3 g/dL (6.4-8.2); Troponin (Emerg Dept Use Only) 0.04 ng/mL (0.0-0.045)
--- NOTE | 2019-05-22 10:39 | ER ---
Nurse's Notes [facility] Name: Sunny Small Age: 84 yrs Sex: Male : 1935 Arrival Date: 05/22/2019 Time: 07:05 Bed 20 Private MD: Diagnosis: Weakness;Anemia, unspecified;End stage renal disease;Obesity, unspecified;Syncope and collapse-near Presentation: 05/22 07:11 Presenting complaint: states: "he had a broken hip back in January and he was at [address] got out on Saturday but he's been getting weaker and weaker since getting out of the snf". Pt's states "we went to dialysis today and they said to come to the ER". Transition of care: patient was not received from another setting of care. Onset of symptoms was April 2019. Risk Assessment: Do you want to hurt yourself or someone else? Patient reports no desire to harm self or others. Initial Sepsis Screen: Does the patient meet any 2 criteria? No. Patient's initial sepsis screen is negative. Does the patient have a suspected source of infection? No. Patient's initial sepsis screen is negative. Care prior to arrival: None. 07:11 Acuity: JEAN 3 aa5 07:11 Method Of Arrival: Wheelchair aa5 Historical: - Allergies: 07:17 Codeine; aa5 07:17 Morphine; aa5 - Home Meds: 07:25 tropol XL 100mg twice a day take only if systolic BP is over 150 on days getting aa5 dialysis [Active]; Allopurinol 80mg Oral once daily [Active]; ranitidine HCl 150 mg Oral cap once daily [Active]; Warfarin 4.5mg once a day Oral [Active]; Lucila-Tenzin oral oral daily [Active]; doxazosin 2 mg oral tab take if systolic BP over 170 [Active]; - PMHx: 07:17 ESRD; Hemodialysis; PE; Hypertension; Kidney Cancer; aa5 07:25 Gout; aa5 - PSHx: 07:17 R Nephrectomy (Cancer); aa5 07:25 L hip; aa5 - Immunization history:: Pneumococcal vaccine is up to date, Flu vaccine is up to date. - Social history:: Smoking status: Patient/guardian denies using tobacco. - Ebola Screening: : No symptoms or risks identified at this time. Screenin:00 Abuse screen: Denies threats or abuse. Denies injuries from another. Nutritional hb screening: No deficits noted. Tuberculosis screening: No symptoms or risk factors identified. Fall Risk Total Low Fall Scale indicates High Risk Score (45 or more points). Fall prevention measures have been instituted. Side Rails Up X 2 Frequent Obs/Assessments Occuring Family Present and informed to notify staff if the need to leave the bedside As available patient and family educated on Fall Prevention Program and Strategies. Assessment: 08:00 General: Appears in no apparent distress. Behavior is calm, cooperative. Pain: Denies hb pain. Neuro: Level of Consciousness is awake, alert, obeys commands, Oriented to person, place, time, situation. Cardiovascular: Heart tones S1 S2 present Capillary refill < 3 seconds Patient's skin is warm and dry. Respiratory: Airway is patent Respiratory effort is even, unlabored, Respiratory pattern is regular, symmetrical, Breath sounds are clear bilaterally. GI: No signs and/or symptoms were reported involving the gastrointestinal system. : No signs and/or symptoms were reported regarding the genitourinary system. EENT: No signs and/or symptoms were reported regarding the EENT system. Derm: Skin is intact, is healthy with good turgor, Skin is pink, warm \\T\\ dry. Musculoskeletal: Reports generalized weakness x 1 week. 09:00 Reassessment: Patient appears in no apparent distress at this time. Patient and/or hb family updated on plan of care and expected duration. Pain level reassessed. Patient is alert, oriented x 3, equal unlabored respirations, skin warm/dry/pink. 10:00 Reassessment: Patient appears in no apparent distress at this time. Patient and/or hb family updated on plan of care and expected duration. Pain level reassessed. Patient is alert, oriented x 3, equal unlabored respirations, skin warm/dry/pink. 11:00 Reassessment: Patient appears in no apparent distress at this time. Patient and/or hb family updated on plan of care and expected duration. Pain level reassessed. Patient is alert, oriented x 3, equal unlabored respirations, skin warm/dry/pink. 12:42 Reassessment: Patient appears in no apparent distress at this time. Patient and/or mg2 family updated on plan of care and expected duration. Pain level reassessed. Patient is alert, oriented x 3, equal unlabored respirations, skin warm/dry/pink. patient informed about the waiting time for admission bed to be available. food tray requested for the patient. Vital Signs: 07:12 BP 121 / 69; Pulse 50; Resp 16 S; Temp 97.6(O); Pulse Ox 97% on R/A; aa5 09:00 BP 136 / 68; Pulse 48; Resp 15; Pulse Ox 96% on R/A; hb 10:00 BP 135 / 65; Pulse 49; Resp 14; Pulse Ox 98% on R/A; hb 11:00 BP 136 / 67; Pulse 51; Resp 17; Pulse Ox 97% on R/A; Pain 0/10; hb 12:42 BP 145 / 52; Pulse 46; Resp 18; Pulse Ox 99% on R/A; Pain 0/10; mg2 13:35 BP 138 / 60; Pulse 49; Resp 18; Temp 98; Pulse Ox 100% on R/A; mg2 ED Course: 07:05 Patient arrived in ED. mr 07:11 Arm band placed on. aa5 07:14 Triage completed. aa5 08:04 EKG done, by wildlife biology technician. reviewed by Sebastian Langford MD. at1 08:07 Sebastian Langford MD is Attending Physician. nirav 08:22 Denia Benavidez, RN is Primary Nurse. hb 08:43 Initial lab(s) drawn, by wa, sent to lab. Inserted saline lock: 20 gauge in right mh5 forearm, using aseptic technique. Blood collected. 08:44 Patient has correct armband on for positive identification. Bed in low position. Call 5 light in reach. Side rails up X 1. Warm blanket given. quality assurance monitor final on. Pulse ox on. NIBP on. 08:52 Basic Metabolic Panel Sent. hb 09:35 XRAY Chest (1 view) In Process Unspecified. EDMS 10:37 Keyon Love MD is Hospitalizing Provider. nirav 13:53 No provider procedures requiring assistance completed. Patient admitted, IV remains in mg2 place. Administered Medications: 12:22 Drug: Rocephin 1 grams Route: IV; Rate: per protocol; Site: right forearm; mg2 13:55 Follow up: Response: No adverse reaction; IV Status: Completed infusion mg2 Outcome: 10:38 Decision to Hospitalize by Provider. nirav 13:54 Admitted to Tele accompanied by tech, family with patient, via stretcher, room 408, mg2 with chart. 13:54 Condition: stable 13:54 Instructed on the need for admit, Demonstrated understanding of instructions. 13:55 Patient left the ED. mg2 Signatures: Dispatcher [employer] EDSebastian Griggs MD MD cha Rivera, Salma mr Branch, Caryl, RN RN aa5 Niki Del Valle, processing clerk EKG Tat1 Denia Benavidez RN RN hb Martinez, Maria [facility] Nadir Brown RN RN mg2 Corrections: (The following items were deleted from the chart) 07:21 07:18 BP 121 / 69; Pulse 50bpm; Resp 16bpm; Spontaneous; Pulse Ox 97% RA; Temp 97.6F aa5 Oral; aa5 12:43 12:42 Reassessment: Patient appears in no apparent distress at this time. Patient mg2 and/or family updated on plan of care and expected duration. Pain level reassessed. Patient is alert, oriented x 3, equal unlabored respirations, skin warm/dry/pink. patient informed about the waiting time for admission bed to be available. mg2
--- NOTE | 2019-05-22 10:39 | EDPHYS ---
Physician Documentation [facility] Name: Sunny Small Age: 84 yrs Sex: Male : 1935 Arrival Date: 05/22/2019 Time: 07:05 Bed 20 Private MD: GWENDOLYN Physician Sebastian Langford HPI: 05/22 10:34 This 84 yrs old Male presents to ER via Wheelchair with complaints of nirav Weakness, DIALYSIS PT. Historical: - Allergies: 07:17 Codeine; aa5 07:17 Morphine; aa5 - Home Meds: 07:25 tropol XL 100mg twice a day take only if systolic BP is over 150 on days getting aa5 dialysis [Active]; Allopurinol 80mg Oral once daily [Active]; ranitidine HCl 150 mg Oral cap once daily [Active]; Warfarin 4.5mg once a day Oral [Active]; Lucila-Tenzin oral oral daily [Active]; doxazosin 2 mg oral tab take if systolic BP over 170 [Active]; - PMHx: 07:17 ESRD; Hemodialysis; PE; Hypertension; Kidney Cancer; aa5 07:25 Gout; aa5 - PSHx: 07:17 R Nephrectomy (Cancer); aa5 07:25 L hip; aa5 - Immunization history:: Pneumococcal vaccine is up to date, Flu vaccine is up to date. - Social history:: Smoking status: Patient/guardian denies using tobacco. - Ebola Screening: : No symptoms or risks identified at this time. ROS: 10:34 Constitutional: Negative for fever, chills, and weight loss, Eyes: Negative for injury, nirav pain, redness, and discharge, ENT: Negative for injury, pain, and discharge, Neck: Negative for injury, pain, and swelling, Cardiovascular: Negative for chest pain, palpitations, and edema, Abdomen/GI: Negative for abdominal pain, nausea, vomiting, diarrhea, and constipation, Back: Negative for injury and pain, : Negative for injury, bleeding, discharge, and swelling, MS/Extremity: Negative for injury and deformity, Skin: Negative for injury, rash, and discoloration, Neuro: Negative for headache, weakness, numbness, tingling, and seizure, Psych: Negative for depression, anxiety, suicide ideation, homicidal ideation, and hallucinations, Allergy/Immunology: Negative for hives, rash, and allergies, Endocrine: Negative for neck swelling, polydipsia, polyuria, polyphagia, and marked weight changes. 10:34 Respiratory: Positive for cough, shortness of breath, at rest. Exam: 10:34 Constitutional: This is a well developed, well nourished patient who is awake, alert, nirav and in no acute distress. Head/Face: Normocephalic, atraumatic. Eyes: Pupils equal round and reactive to light, extra-ocular motions intact. Lids and lashes normal. Conjunctiva and sclera are non-icteric and not injected. Cornea within normal limits. Periorbital areas with no swelling, redness, or edema. ENT: Nares patent. No nasal discharge, no septal abnormalities noted. Tympanic membranes are normal and external auditory canals are clear. Oropharynx with no redness, swelling, or masses, exudates, or evidence of obstruction, uvula midline. Mucous membranes moist. Neck: Trachea midline, no thyromegaly or masses palpated, and no cervical lymphadenopathy. Supple, full range of motion without nuchal rigidity, or vertebral point tenderness. No Meningismus. Chest/axilla: Normal chest wall appearance and motion. Nontender with no deformity. No lesions are appreciated. Cardiovascular: Regular rate and rhythm with a normal S1 and S2. No gallops, murmurs, or rubs. Normal PMI, no JVD. No pulse deficits. Abdomen/GI: Soft, non-tender, with normal bowel sounds. No distension or tympany. No guarding or rebound. No evidence of tenderness throughout. Back: No spinal tenderness. No costovertebral tenderness. Full range of motion. Male : Normal genitalia with no discharge or lesions. Skin: Warm, dry with normal turgor. Normal color with no rashes, no lesions, and no evidence of cellulitis. Neuro: Awake and alert, GCS 15, oriented to person, place, time, and situation. Cranial nerves II-XII grossly intact. Motor strength 5/5 in all extremities. Sensory grossly intact. Cerebellar exam normal. Normal gait. Psych: Awake, alert, with orientation to person, place and time. Behavior, mood, and affect are within normal limits. 10:34 Respiratory: the patient does not display signs of respiratory distress, Respirations: normal, Breath sounds: decreased breath sounds, Respiratory rate: 18 Vital Signs: 07:12 BP 121 / 69; Pulse 50; Resp 16 S; Temp 97.6(O); Pulse Ox 97% on R/A; aa5 09:00 BP 136 / 68; Pulse 48; Resp 15; Pulse Ox 96% on R/A; hb 10:00 BP 135 / 65; Pulse 49; Resp 14; Pulse Ox 98% on R/A; hb 11:00 BP 136 / 67; Pulse 51; Resp 17; Pulse Ox 97% on R/A; Pain 0/10; hb 12:42 BP 145 / 52; Pulse 46; Resp 18; Pulse Ox 99% on R/A; Pain 0/10; mg2 13:35 BP 138 / 60; Pulse 49; Resp 18; Temp 98; Pulse Ox 100% on R/A; mg2 MDM: 08:07 Patient medically screened. [facility] 05/22 08:18 Order name: Basic Metabolic Panel [facility] 05/22 08:18 Order name: CBC with Diff; Complete Time: 10:31 [facility] 05/22 08:18 Order name: LFT's; Complete Time: 10:31 [facility] 05/22 08:18 Order name: Magnesium; Complete Time: 10:31 [facility] 05/22 08:18 Order name: NT PRO-BNP; Complete Time: 10:31 [facility] 05/22 08:18 Order name: PT-INR; Complete Time: 10:31 nirav 05/22 08:18 Order name: Troponin (emerg Dept Use Only); Complete Time: 10:31 [facility] 05/22 08:18 Order name: XRAY Chest (1 view) [facility] 05/22 08:18 Order name: EKG; Complete Time: 08:19 [facility] 05/22 08:18 Order name: Lipase; Complete Time: 10:31 [facility] 05/22 08:19 Order name: Basic Metabolic Panel; Complete Time: 10:31 [facility] 05/22 09:35 Order name: TS eb 05/22 10:34 Order name: Blood Culture Adult (2) [facility] 05/22 08:18 Order name: Cardiac monitoring; Complete Time: 08:52 [facility] 05/22 08:18 Order name: EKG - Nurse/Tech; Complete Time: 08:52 [facility] 05/22 08:18 Order name: IV Saline Lock; Complete Time: 08:52 [facility] 05/22 08:18 Order name: Labs collected and sent; Complete Time: 08:52 [facility] 05/22 08:18 Order name: O2 Per Protocol; Complete Time: 08:23 [facility] 05/22 08:18 Order name: O2 Sat Monitoring; Complete Time: 08:23 [facility] 05/22 10:44 Order name: CONS Physician Consult [facility] 05/22 10:44 Order name: CONS Physician Consult [facility] 05/22 12:36 Order name: Diet Ada 1800 Ta; Complete Time: 12:36 mg2 Administered Medications: 12:22 Drug: Rocephin 1 grams Route: IV; Rate: per protocol; Site: right forearm; mg2 13:55 Follow up: Response: No adverse reaction; IV Status: Completed infusion mg2 Disposition: 05/22/19 10:38 Hospitalization ordered by Keyon Love for Inpatient Admission. Preliminary diagnosis are Weakness, Anemia, unspecified, End stage renal disease, Obesity, unspecified, Syncope and collapse - near. - Bed requested for Telemetry/MedSurg (Inpatient). - Status is Inpatient Admission. mg2 - Condition is Fair. - Problem is new. - Symptoms have improved. UTI on Admission? No Signatures: Dispatcher [employer] EDRI Sebastian Langford MD MD nirav Caryl Branch RN RN 5 Nettie Thomas 3 Nadir Brown RN RN mg2 Corrections: (The following items were deleted from the chart) 10:47 10:38 Hospitalization Ordered by Keyon Love MD for Inpatient Admission. Preliminary [facility] diagnosis is Weakness; Anemia, unspecified; End stage renal disease; Obesity, unspecified. Bed requested for Telemetry/MedSurg (Inpatient). Status is Inpatient Admission. Condition is Fair. Problem is new. Symptoms have improved. UTI on Admission? No. nirav 13:08 10:47 05/22/2019 10:38 Hospitalization Ordered by Keyon Love MD for Inpatient dh3 Admission. Preliminary diagnosis is Weakness; Anemia, unspecified; End stage renal disease; Obesity, unspecified; Syncope and collapse - near. Bed requested for Telemetry/MedSurg (Inpatient). Status is Inpatient Admission. Condition is Fair. Problem is new. Symptoms have improved. UTI on Admission? No. nirav 13:15 13:08 05/22/2019 10:38 Hospitalization Ordered by Keyon Love MD for Inpatient aa5 Admission. Preliminary diagnosis is Weakness; Anemia, unspecified; End stage renal disease; Obesity, unspecified; Syncope and collapse - near. Bed requested for Telemetry/MedSurg (Inpatient). Status is Inpatient Admission. Condition is Fair. Problem is new. Symptoms have improved. UTI on Admission? No. dh3 13:55 13:15 05/22/2019 10:38 Hospitalization Ordered by Keyon Love MD for Inpatient mg2 Admission. Preliminary diagnosis is Weakness; Anemia, unspecified; End stage renal disease; Obesity, unspecified; Syncope and collapse - near. Bed requested for Telemetry/MedSurg (Inpatient). Status is Inpatient Admission. Condition is Fair. Problem is new. Symptoms have improved. UTI on Admission? No. aa5
[2019-05-22] MEDS ORDERED: CEFTRIAXONE/SWI 1gm 1 GM/10 ML SYR ONE (12:18)
[2019-05-22] MEDS ORDERED: ONDANSETRON 4 MG/2 ML VIAL IV PRN (13:41)
[2019-05-22] MEDS ORDERED: ACETAMINOPHEN 325 MG TABLET PO PRN ×2 (13:41→18:39)
[2019-05-22] MEDS ORDERED: IPRATROPIUM BROM 0.5MG/2.5ML NEB PRN (13:41)
[2019-05-22] MEDS ORDERED: ALBUTEROL 2.5 MG/3 ML NEB SOL NEB PRN (13:41)
[2019-05-22 15:42] VITALS: BMI 33.1
[2019-05-22] MEDS ORDERED: MANNITOL 25% 12.5 GM/50 ML VIAL IV PRN (18:34)
[2019-05-22] MEDS ORDERED: NA CHLORIDE 0.9% 1,000 ML IV PRN (18:34)
[2019-05-22] MEDS ORDERED: DOXAZOSIN 2 MG TAB PO PRN (18:48)
--- NOTE | 2019-05-22 18:54 | P.CNS ---
Date of Consult: 05/22/19 Reason for Consult: ESRD Requesting Physician: Keyon Love Chief Complaint: Weakness History of Present Illness: 84 yo WM CKD, HTN presented to the ER with less than 24 hours of severe, progressive LE weakness with associated fatigue and malaise. No instigating events. No signs or symptoms of infection. Not able to stand or ambulate. Good appetite. No cough, fever or dysuria. Missed his HD today. Limited HPI/ ROS due to mild memory impairment. Allergies adhesive tape Adverse Reaction (Verified 03/06/18 20:27) Itching codeine Adverse Reaction (Verified 03/06/18 20:27) Itching morphine Adverse Reaction (Verified 03/06/18 20:27) Itching Home medications list reviewed: Yes Home Medications: Acetaminophen [Tylenol] 2 tab PO DAILY PRN 05/22/19 Antiox#10/Om3/Dha/Epa/Lut/Zeax [I-Caps with Lutein-[place] 3 Sfg] 1 tab PO DAILY 05/22/19 Cholecalciferol (Vitamin D3) [Vitamin D3] 1 cap PO SEECOM 05/22/19 Cyanocobalamin (Vitamin B-12) [Vitamin B-12] 1 tab PO BEDTIME 05/22/19 Diphenhydramine HCl [Benadryl Allergy] 1 tab PO BID 05/22/19 Docusate Sodium [Stool Softener] 1 tab PO BEDTIME 05/22/19 Doxazosin Mesylate [Cardura] 1 tab PO SEECOM 05/22/19 Febuxostat [Uloric] 1 tab PO DAILY 05/22/19 Folic Acid/Vit Bcomp,C [Lucila-Tenzin Tablet] 1 tab PO DAILY 05/22/19 Loratadine [Claritin*] 1 tab PO DAILY 05/22/19 Lysine 1 tab PO DAILY 05/22/19 Metoprolol Succinate [Toprol Xl] 1 tab PO BID 05/22/19 Ranitidine [Zantac*] 1 tab PO BEDTIME 05/22/19 Sevelamer Carbonate 2 tab PO TID 05/22/19 Warfarin Sodium [Coumadin*] 4.5 mg PO BEDTIME 05/22/19 - Past Medical/Surgical History Diabetic: No -: HTN -: Stage 4 kidney -: DVT filter -: Kidney Ca -: 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 -: DVT filter placed -: cataract sx -: hemhorroid sx -: bilateral knee sx - Family History Mother Medical History: Heart disease, Hypertension, Cancer Notes: breast cancer [place] Father Medical History: Heart disease, Hypertension Notes: CHF Sister Medical History: Hypertension, Kidney disease Notes: breast removed d/t precancer - Social History Alcohol use: No CD- Drugs: No Caffeine use: Yes Place of Residence: Home Review of Systems 10-point ROS is otherwise unremarkable General: Weakness, Malaise Cardiovascular: Edema Neurological: Weakness Physical Examination Temp Pulse Resp BP Pulse Ox 97.6 F 52 18 143/63 H 92 05/22/19 16:00 05/22/19 16:00 05/22/19 16:00 05/22/19 16:00 05/22/19 16:00 General: Alert, In no apparent distress, Cooperative HEENT: Atraumatic Neck: Supple Respiratory: Clear to auscultation bilaterally Cardiovascular: Regular rate/rhythm, Edema Gastrointestinal: Soft and benign, Non-distended Musculoskeletal: No clubbing, No contractures, No erythema Integumentary: No rashes, No cyanosis, No ulcers, Pressure ulcer, Venous stasis ulcer Neurological: Normal speech Laboratory Data (last 24 hrs) 05/22/19 08:40: PT 18.3 H, INR 1.58 05/22/19 08:40: WBC 8.6, Hgb 9.8 L, Hct 29.6 L, Plt Count 208 05/22/19 08:40: Sodium 142, Potassium 4.0, BUN 58 H, Creatinine 8.35 H*, Glucose 91, Magnesium 2.6 H D, Total Bilirubin 0.4, AST 13 L, ALT 16, Alkaline Phosphatase 107, Lipase 354 Conclusions/Impression: A/ Severe LE weakness of unclear etiology. Mild progressive dementia. ESRD on HD. HTN with CKD/ CHF. Diastolic CHF, chronic. Anemia in CKD. PRASANNA/ Secondary HyperPTH. Bradycardia on metoprolol. P/ Continue current POC and medications. CT head tonight. MRI lumbar spine tonight. Acute HD tomorrow. Reduce metoprolol due to bradycardia. Give Procrit. Home medications reviewed and restarted as indicated. Abx given. Follow up cultures. No NSAIDs. AM labs. Daily weight. Thank you kindly for the consultation. Case reviewed with Dr. Love.
[2019-05-22] MEDS ORDERED: DOXAZOSIN 2 MG TAB PO SCH (19:00)
[2019-05-22] MEDS ORDERED: ALBUMIN HUMAN 25% 50 ML IV SCH (19:00)
[2019-05-22] MEDS ORDERED: EPOETIN ALFA 10,000 UNIT/ML VIAL SQ ONE (19:09)
[2019-05-22 19:49] LABS: Urine Appearance CLOUDY; Urine Blood 1+ (NEG); Urine Color DK YELLOW; Urine Glucose TRACE (NEG); Urine Protein 3+ (NEG); Urine Specific Gravity 1.025 (1.005-1.030); Urine Urobilinogen 0.2 mg/dL (0.2-1.0); Urine pH 5.5 (5.0-7.0)
[2019-05-22 19:59] LABS: Urine Bilirubin NEGATIVE (NEG); Urine Microscopic Reflex ORDER UMIC
[2019-05-22] MEDS ORDERED: METOPROLOL XL 100 MG TAB PO SCH (21:00)
[2019-05-22] MEDS ORDERED: DOCUSATE SODIUM PO SCH (21:00)
--- NOTE | 2019-05-22 21:36 | RAD REPORT ---
EXAM DESCRIPTION: CT - Head Brain W/Wo Con - 05/22/2019 7:55 pm CLINICAL HISTORY: Bilateral lower extremity weakness. Dementia COMPARISON: None. TECHNIQUE: Computed axial tomography of the head was obtained. Unenhanced and enhanced images obtain ed. 50 cc Isovue-[address] scans are performed using dose optimization technique as appropriate and may include automated exposure control or mA/KV adjustment according to patient size. FINDINGS: An intracranial bleed is not seen . The ventricles are normal in caliber. No extra-axial fluid collection is noted. No abnormal enhancement seen Mild low-density areas within periventricular and deep white matter likely ischemic changes secondary to small vessel disease. Cerebral atrophy is noted. Fluid within the sinuses/ mastoids is not seen. IMPRESSION: No acute intracranial abnormality is seen. If patient's symptoms persist MRI of the bra in would be recommended.
[2019-05-22] MEDS: DOCUSATE NA 100 MG CAP PO SCH (21:40)
[2019-05-22] MEDS: FAMOTIDINE 20 MG/2 ML VIAL IV SCH (21:40)
[2019-05-22] MEDS: METOPROLOL XL 25 MG TAB PO SCH (21:40)
[2019-05-22] MEDS: WARFARIN SODIUM 3 MG TAB PO SCH (21:42)
[2019-05-22] MEDS: RANITIDINE 150 MG TABLET PO SCH (21:45)
[2019-05-22 21:47] LABS: Urine Amorphous Sediment 4+ /HPF (NONE SEEN); Urine Bacteria 20-50 /HPF (NONE SEEN); Urine Coarse Granular Casts >10 /LPF (NONE SEEN); Urine Culture Reflex Order REFLEXED; Urine Mucus 2+ /HPF (NONE SEEN)
[2019-05-22 21:48] LABS: Urine Waxy Casts 0-5 /LPF (NONE SEEN)
--- NOTE | 2019-05-23 04:42 | EKG ---
Test Date: 2019-05-22 Test Time: 07:52:16 Internal Communications Intern: SONJA MEASUREMENT RESULTS: Intervals: Rate: 57 [place]: 248 QRSD: 172 QT: 540 QTc: 525 [place]: P: 46 [place]: 248 QRS: -22 T: -21 INTERPRETIVE STATEMENTS: Sinus bradycardia with 1st degree AV block with frequent premature ventricular complexes Right bundle branch block Abnormal ECG Compared to ECG 03/07/2018 08:18:41 Ventricular premature complex(es) now present Right bundle-branch block now present Left-axis deviation no longer present Electronically Signed On 05-23-19 04:42:07 CDT by Ramin Hunter
[2019-05-23 06:50] LABS: Magnesium 2.7 mg/dL (1.8-2.4); Phosphorus 7.6 mg/dL (2.5-4.9); Uric Acid 5.9 mg/dL (3.5-7.2)
[2019-05-23 06:54] LABS: Basophils % 0.6 % (0-1.3); Hematocrit 28.1 % (39.6-49.0); Lymphocytes % 11.1 % (15.3-44.8); MPV 9.7 fL (7.6-11.3); RBC Red Blood Cell Count 2.93 M/uL (4.33-5.43)
[2019-05-23 07:00] LABS: Protime INR 1.93
[2019-05-23 07:17] LABS: Potassium 4.2 mmol/L (3.5-5.1)
[2019-05-23] MEDS: SEVELAMER CARBONATE 800 MG TABLET PO SCH ×3 (08:43→16:11)
[2019-05-23] MEDS: VITAMIN D 5,000 UNIT CAP PO SCH (08:44)
[2019-05-23] MEDS: METOPROLOL XL 25 MG TAB PO SCH ×2 (08:44→20:49)
[2019-05-23] MEDS: LORATADINE 10 MG TAB PO SCH (08:44)
[2019-05-23] MEDS: MULTIVITAMINS,THERAPEUT 1 TAB PO SCH (08:44)
[2019-05-23] MEDS: FEBUXOSTAT PO SCH (08:45)
[2019-05-23] MEDS: FAMOTIDINE 20 MG/2 ML VIAL IV SCH ×2 (08:45→20:49)
[2019-05-23] MEDS: LYSINE PO SCH (08:45)
--- NOTE | 2019-05-23 08:45 | RAD REPORT ---
EXAM DESCRIPTION: Isact Single View05/23/2019 6:47 am CLINICAL HISTORY: Chest pain COMPARISON: May 22, 2019 FINDINGS: Upper lobe vessels are prominent indicative of pulmonary venous hypertension The lungs appear clear of acute infiltrate. The heart is mildly enlarged. Old rib fractures noted.
--- NOTE | 2019-05-23 08:46 | RAD REPORT ---
EXAM DESCRIPTION: Isact Single View05/22/2019 7:07 pm CLINICAL HISTORY: Cough COMPARISON: 2018 FINDINGS: Upper lobe vessels are prominent indicative of pulmonary venous hypertension The lungs appear clear of acute infiltrate. The heart is mildly enlarged. Old rib fractures noted.
[2019-05-23] MEDS ORDERED: FOLIC ACID PO SCH (09:00)
[2019-05-23] MEDS ORDERED: VIT BCOMP C PO SCH (09:00)
--- NOTE | 2019-05-23 14:21 | PN ---
Date of Progress Note: 05/23/2019 Subjective: Patient is seen and examined at bedside. He continues to have weakness. His heart rate is in the 40s, on dialysis. Objective: Vital signs: Reviewed. General: He appears in no acute distress. Lungs: Clear to auscultation. Abdomen: Soft and nontender. Extremities: Without any evidence of edema. Laboratory Data: At this time are showing a stable hemoglobin, hematocrit, and platelet count. BMP results have been reviewed, consistent with ESRD. Medications: Current medications have been reviewed as well. Patient is on doxazosin at bedtime, Pr ocrit 1 time dose has been given, Uloric, Renvela, metoprolol 25 mg b.i.d., and Coumadin 4.5 mg at be dtime. Impression: 1.End-stage renal disease, on dialysis. 2.Severe lower extremity weakness. 3.Bradycardia. 4.Hypertension, stable. 5.Anemia secondary to chronic disease. 6.Chronic diastolic heart failure. Plan: Overall, patient is stable. However, he continues to have persistent episodes of bradycardia. Metoprolol dose has been decreased with holding parameters. Continue to monitor closely and CT sca n of the head was reviewed. He does not have any acute findings. MRI has also been ordered. We collette l follow up on the results. Continue to monitor anemia and we will follow up on the cultures. Physi agus therapy as indicated and patient is able to tolerate the dialysis well at this time. His urine cultures are still pending. Follow up on PT/INR results close ly. VV/MODL Voice ID: [id number] Report ID: [id number]
[2019-05-23] MEDS ORDERED: DIPHENHYDRAMINE 25 MG TAB/CAP PO PRN (16:42)
[2019-05-23] MEDS: RANITIDINE 150 MG TABLET PO SCH (20:49)
[2019-05-23] MEDS: DOCUSATE NA 100 MG CAP PO SCH (20:49)
[2019-05-23] MEDS: WARFARIN SODIUM 3 MG TAB PO SCH (20:50)
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
--- NOTE | 2019-05-24 02:17 | PN ---
Date of Progress Note: 05/23/[address] scan of the brain, which showed no acute hemorrhage; however, did show some ge neralized vascular changes and possible old infarct. According to the family, he is about the same. Still has motion and decreased strength in the lower extremities and fatigue. He underwent dialysis post CAT scan and MRI of lower back is scheduled for Saturday to see if there is a problem there. The possibility of sending him to rehab was also discussed with the family depending on the results of f linwoodther testing and his progression. HR/MODL Voice ID: [id number] Report ID: [id number]
[2019-05-24 07:05] LABS: Protime INR 2.04
[2019-05-24] MEDS: SEVELAMER CARBONATE 800 MG TABLET PO SCH ×3 (08:34→17:16)
[2019-05-24] MEDS: METOPROLOL XL 25 MG TAB PO SCH ×2 (08:34→21:54)
[2019-05-24] MEDS: VITAMIN D 5,000 UNIT CAP PO SCH (08:37)
[2019-05-24] MEDS: MULTIVITAMINS,THERAPEUT 1 TAB PO SCH (08:37)
[2019-05-24] MEDS: LYSINE PO SCH (08:37)
[2019-05-24] MEDS: FAMOTIDINE 20 MG/2 ML VIAL IV SCH (08:37)
[2019-05-24] MEDS: FEBUXOSTAT PO SCH (08:37)
[2019-05-24] MEDS: LORATADINE 10 MG TAB PO SCH (08:37)
[2019-05-24] MEDS ORDERED: LORazepam 2 MG/ML VIAL IV PRN (14:08)
--- NOTE | 2019-05-24 20:44 | PN ---
Date of Progress Note: 05/24/2019 Subjective: The patient is seen and examined. Chart reviewed and case discussed with RN, oscar shane service covering for Dr. Love while he is out of town. Patient does not have any specific compl aints, requesting tomorrow mornings MRI. If he is claustrophobic, confirming his dialysis for tomorr ow. Medications: List reviewed. Code Status: Full. Physical Examination: Vital Signs: Temperature 98, heart rate 59, blood pressure 154/67, respirations 20, O2 of 96% on dhaval m air. General: Awake, alert, and oriented x3, not in any acute distress. Obese male. CV: S1, S2. Peripheral pulses present. Respiratory: Somewhat diminished breath sounds at the bases, otherwise moving air well. Gastrointestinal: Abdomen is soft, nontender, nondistended. Positive bowel sounds. Extremities: No clubbing or cyanosis. Patient has 2+ edema bilateral lower extremities. Skin: Chronic venous stasis on examination. Neurologic: Nonfocal. Laboratory Data: Pending. Blood cultures, no growth to date. Urine culture, mixed salena. Assessment And Plan: An 84-year-old male with 1.Near syncopal episode. Head CT scan was negative, may be related to dehydration. 2.Generalized weakness, improving. We will continue PT likely and go to rehab. 3.End-stage renal disease, continue dialysis. Appreciate Nephrology input. 4.Chronic anemia, likely anemia of chronic disease. Monitor hemoglobin and hematocrit, transfuse as needed. 5.History of congestive heart failure induced diastolic dysfunction, chronic. Unknown ejection frac tion. 6.Recent post fractured hip. 7.Chronic venous stasis ulcerations. 8.Hypertension. We will continue home medications. 9.Bradycardia. Patient is on beta-blockers. Plan: MRI in a.m. We will transfer service back to Dr. Love once he is back in town. We will us e Ativan 0.5 mg p.o. half an hour prior to exam to avoid claustrophobia. SA/MODL Voice ID: [id number] Report ID: [id number]
[2019-05-24] MEDS: RANITIDINE 150 MG TABLET PO SCH (21:54)
[2019-05-24] MEDS: DOCUSATE NA 100 MG CAP PO SCH (21:54)
[2019-05-24] MEDS: WARFARIN SODIUM 3 MG TAB PO SCH (21:55)
[2019-05-25 04:47] LABS: Protime INR 1.89
[2019-05-25] MEDS ORDERED: LORazepam 2 MG/ML VIAL IV ONE (07:29)
[2019-05-25] MEDS: SEVELAMER CARBONATE 800 MG TABLET PO SCH ×4 (08:22→17:10)
[2019-05-25] MEDS: VITAMIN D 5,000 UNIT CAP PO SCH (08:22)
[2019-05-25] MEDS: MULTIVITAMINS,THERAPEUT 1 TAB PO SCH (08:22)
[2019-05-25] MEDS: LORATADINE 10 MG TAB PO SCH (08:22)
[2019-05-25] MEDS: FAMOTIDINE 20 MG/2 ML VIAL IV SCH (08:23)
[2019-05-25] MEDS: METOPROLOL XL 25 MG TAB PO SCH ×2 (08:23→20:44)
[2019-05-25] MEDS: LYSINE PO SCH (09:00)
[2019-05-25] MEDS: FEBUXOSTAT PO SCH (09:00)
--- NOTE | 2019-05-25 09:45 | CON ---
Identification: 84-year-old man. Reason For Cardiology Consult: Weakness. History Of Present Illness: Mr. Small is 84. He has end-stage renal disease, on hemodialysis. He h as had a cardiac noninvasive workup in the past. No history of coronary artery disease. He is not h aving chest pain or shortness of breath. He has his progressive weakness and very hard for him to st and up from a sitting position and this morning he could not even walk into the dialysis clinic from his car, I am not sure how he exactly got to his car. Since he has been here, an EKG does not show a nything significantly wrong. Troponins were normal. He has been in normal rhythm. He has never had low blood pressure at the dialysis clinic. It was taken before he was sent to the ER. His first bl ood pressure when he got here was 121/69. As an outpatient, he takes Toprol-XL 100 twice a day, allo purinol 80, ranitidine 150, Coumadin 4.5 mg once a day, and doxazosin 2 mg. He gets hemodialysis 3 d ays a week. He has a history of a pulmonary embolus, hypertension, kidney cancer. Apparently, he butcher s had all of his kidney cancer removed at this point, but in the middle of the summer, he still had a mass there. We do not have a CAT scan showing that his kidney cancer has resolved in our chart. Ho pefully, there is [address] he got this nephrectomy done. Physical Examination: General: He is morbidly obese, alert, oriented, pleasant. He was eating. Did not have any nausea o r vomiting or troubles eating. Lungs: Clear. Heart: Does not reveal any significant abnormalities. Impression: The patient's weakness is undiagnosed at this point. I would be concerned that it is a paraneoplastic syndrome or perhaps an unusual manifestation of Guillain-Venetie or myasthenia. I think a neurology consultation is important for him and making sure we know the status of his kidney cance r is very important. The heart and vascular system does not seem to be in much compromise at this po int. Thank you very much for your kind referral of Mr. Small. I will follow him with you. INEZ/LISA Voice ID: [id number] Report ID: [id number]
--- NOTE | 2019-05-25 19:53 | RAD REPORT ---
EXAM DESCRIPTION: MRI - Lumbar Spine Wo Con- 05/25/2019 7:19 pm CLINICAL HISTORY: Acute BL LE Weakness. Hx RCC. COMPARISON: Abdomen Pelvis W/Wo Contrast dated 03/10/2018 FINDINGS: Vertebral body heights are within normal limits. Blooming artifact is present the anterior aspect of the lumbar. No aggressive marrow pattern is observed. No fracture is suspected. The conus medullaris terminates at a normal level. No thickening of the cauda equina or clumping of n erve roots seen. L1-2 level: No significant findings. L2-3 level: Mild posterior disc bulge with mild facet and ligamentum flavum hypertrophy. Mild narrowi ng of the anterior inferior aspects of both exit foramina. L3-4 level: Asymmetric posterior disc bulge to the right is seen with moderate facet hypertrophy, gre ater on the right. Mild narrowing of the right lateral recess and exit foramina. L4-5 level: Mild posterior disc bulge with mild facet and ligamentum flavum hypertrophy. No canal or foraminal stenosis. L5-S1 level: Mild posterior disc bulge with mild facet and ligamentum hypertrophy. No canal or forami nal stenosis. Significant facet hypertrophy is present a small external synovial cyst on the right me asuring 6 mm. 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 No severe saúl l or foraminal stenosis at any level is seen.
--- NOTE | 2019-05-25 20:28 | P.PN ---
Date of Service: 05/25/19 Vital Signs Temp Pulse Resp BP Pulse Ox 97.7 F 65 20 160/84 H 92 05/25/19 08:00 05/25/19 08:00 05/25/19 08:00 05/25/19 08:00 05/25/19 08:00 Medications Acetaminophen (Tylenol -Tablet) 650 mg PO DAILY PRN PRN Reason: Pain scale 5-7 (Moderate) Stop: 06/21/19 18:40 Albuterol Sulfate (Proventil 0.083% Neb Soln) 2.5 mg NEB [id number] PRN PRN Reason: WHEEZING Stop: 06/21/19 13:42 Last Admin: 05/22/19 15:35 Dose: 2.5 mg Cholecalciferol (Vitamin D 5,000 Iu Cap) 5,000 unit PO DAILY BASSAM Stop: 06/22/19 09:01 Last Admin: 05/25/19 08:22 Dose: 5,000 unit Diphenhydramine HCl (Benadryl Tab/Cap) 50 mg PO Q6H PRN PRN Reason: ITCHING Stop: 06/22/19 16:43 Last Admin: 05/23/19 17:54 Dose: 50 mg Docusate Sodium (Colace Cap) 100 mg PO BEDTIME BASSAM Stop: 06/21/19 21:01 Last Admin: 05/24/19 21:54 Dose: 100 mg Doxazosin Mesylate (Cardura) 2 mg PO BEDTIME PRN PRN Reason: FOR SBP > 165 Stop: 06/21/19 21:01 Famotidine (Pepcid) 20 mg IV DAILY BASSAM; Protocol Stop: 06/24/19 09:01 Last Admin: 05/25/19 08:23 Dose: 20 mg Heparin Sodium (Porcine) (Heparin 1,000 Units/Ml) 6,000 unit IV EVERY HD PRN PRN Reason: FLUSH AFTER EACH USE Stop: 06/21/19 18:35 Heparin Sodium (Porcine) (Heparin 1,000 Units/Ml) 2,000 unit IV EVERY HD BASSAM Stop: 05/27/19 13:01 Home Med (Febuxostat [Uloric]) 1 tab PO DAILY BASSAM Stop: 06/22/19 09:01 Last Admin: 05/25/19 09:00 Dose: Not Given Home Med (Lysine [Lysine]) 1 tab PO DAILY [facility] Stop: 06/22/19 09:01 Last Admin: 05/25/19 09:00 Dose: Not Given Albumin Human (Albumin 25%) 50 mls @ 100 mls/hr IV EVERY HD BASSAM Stop: 06/21/19 19:01 Ipratropium [place] (Atrovent Neb) 0.5 mg NEB [id number] PRN PRN Reason: WHEEZING Stop: 06/21/19 13:42 Last Admin: 05/22/19 15:35 Dose: 0.5 mg Loratadine (Claritin) 10 mg PO DAILY BASSAM Stop: 06/22/19 09:01 Last Admin: 05/25/19 08:22 Dose: 10 mg Lorazepam (Ativan) 0.5 mg IV 1X PRN PRN Reason: ANXIETY Stop: 06/23/19 14:09 Mannitol (Mannitol 12.5 Gm/50 Ml Vial) 12.5 gm IV EVERY HD PRN PRN Reason: for BP support at HD Stop: 06/21/19 18:35 Metoprolol Succinate (Toprol Xl) 25 mg PO BID BASSAM Stop: 06/21/19 21:01 Last Admin: 05/25/19 08:23 Dose: 25 mg Ondansetron HCl (Zofran) 4 mg IV Q6H PRN PRN Reason: NAUSEA / VOMITING Stop: 06/21/19 13:42 Ranitidine HCl (Zantac) 150 mg PO BEDTIME BASSAM Stop: 06/21/19 21:01 Last Admin: 05/24/19 21:54 Dose: 150 mg Sevelamer Carbonate (Renvela) 1,600 mg PO TIDWM BASSAM Stop: 06/22/19 08:01 Last Admin: 05/25/19 17:10 Dose: 1,600 mg Sodium Chloride (Normal Saline Flush) 10 ml IV BID BASSAM Stop: 06/21/19 21:01 Last Admin: 05/25/19 08:23 Dose: 10 ml Vitamin B Complex/Vit C/Folic Acid (Nephro-Tenzin) 1 tab PO DAILY BASSAM Stop: 06/22/19 09:01 Last Admin: 05/25/19 08:22 Dose: 1 tab Warfarin Sodium (Coumadin) 4.5 mg PO BEDTIME BASSAM Stop: 06/21/19 21:01 Last Admin: 05/24/19 21:55 Dose: 4.5 mg Assessment/ Plan: Nephrology Feeling better but still with LE weakness. Working with PT. CPS improved without CP or SOB. +HIGUERA No acute events overnight. Vitals, medications, blood work and imaging reviewed in the chart. General: Alert, In no apparent distress, Cooperative HEENT: Atraumatic Neck: Supple Respiratory: Clear to auscultation bilaterally Cardiovascular: Regular rate/rhythm, Edema Gastrointestinal: Soft and benign, Non-distended Musculoskeletal: No clubbing, No contractures, No erythema Integumentary: No rashes, No cyanosis, No ulcers, Pressure ulcer, Venous stasis ulcer Neurological: Normal speech Laboratory Data (last 24 hrs) 05/22/19 08:40: PT 18.3 H, INR 1.58 05/22/19 08:40: WBC 8.6, Hgb 9.8 L, Hct 29.6 L, Plt Count 208 05/22/19 08:40: Sodium 142, Potassium 4.0, BUN 58 H, Creatinine 8.35 H*, Glucose 91, Magnesium 2.6 H D, Total Bilirubin 0.4, AST 13 L, ALT 16, Alkaline Phosphatase 107, Lipase 354 Conclusions/Impression: A/ Severe LE weakness of unclear etiology. Mild progressive dementia. ESRD on HD. HTN with CKD/ CHF. Diastolic CHF, chronic. Anemia in CKD. PRASANNA/ Secondary HyperPTH. Bradycardia on metoprolol. P/ Continue current POC and medications. Acute HD as ordered. Seen and examined on HD. Bradycardia improved on the lower dose metoprolol. Follow up cultures. No NSAIDs. AM labs. Daily weight. PT as tolerated.
[2019-05-25] MEDS: RANITIDINE 150 MG TABLET PO SCH (20:44)
[2019-05-25] MEDS: DOCUSATE NA 100 MG CAP PO SCH (20:44)
[2019-05-25] MEDS: WARFARIN SODIUM 3 MG TAB PO SCH (20:45)
--- NOTE | 2019-05-25 23:53 | PN ---
Date of Progress Note: 05/25/2019 Patient has improved over the past few days as far as his leg strength is concerned. His participati on in PT has been good and he has been accepted in the rehab unit. Awaiting results of the MRI. He should be transferred in the morning to continue on the same regimen. HR/MODL Voice ID: [id number] Report ID: [id number]
[2019-05-26 04:54] LABS: Protime INR 1.79
[2019-05-26] MEDS: VITAMIN D 5,000 UNIT CAP PO SCH (08:30)
[2019-05-26] MEDS: SEVELAMER CARBONATE 800 MG TABLET PO SCH ×2 (08:30→12:34)
[2019-05-26] MEDS: FAMOTIDINE 20 MG/2 ML VIAL IV SCH (08:31)
[2019-05-26] MEDS: LORATADINE 10 MG TAB PO SCH (08:31)
[2019-05-26] MEDS: METOPROLOL XL 25 MG TAB PO SCH (08:31)
[2019-05-26] MEDS: MULTIVITAMINS,THERAPEUT 1 TAB PO SCH (08:31)
[2019-05-26] MEDS: FEBUXOSTAT PO SCH (08:33)
[2019-05-26] MEDS: LYSINE PO SCH (08:33)
[2019-05-26 09:18] VITALS: TEMP 98.3
[2019-05-26 09:31] VITALS: O2SAT 96
[2019-05-26 12:35] VITALS: BP 121/68
--- NOTE | 2019-05-26 15:09 | P.DS ---
Admission Date: 05/22/19 Discharge Date: 05/26/19 Primary Care Provider: Dr. Love Disposition: TRANSFER TO INPATIENT REHAB Discharge Condition: FAIR Reason for Admission: Weakness Consultations: Nephrology Brief History of Present Illness: : Patient has had significant health problems over the past few years. Last episode of significance was a fractured hip and he tolerated the procedure fairly well. He was sent to a SNF in the [facility] where he had been for rehab and OT and apparently is doing quite well. This started in January with a fracture. In the last couple of weeks, he has been up to 3 or 4 hours of rehab and he felt it was well enough to be discharged. He went home and for first couple days, he did well. After 2 to 3 days, however, he started feeling a little bit weaker and this became more pronounced the day of admission when he had what was described as a near-syncope. His legs just would not hold him up where as he had been walking prior to this. He could not do that. He was seen in the emergency room and admitted for further treatment. Hospital Course: Patient was admitted, head CT was negative. His near-syncopal episode may have been related to dehydration. He was continued on dialysis as he needed. He did not require any transfusions. He did continue with physical therapy. MRI of his lumbar spine was done, which showed multi level degenerative spondylolysis without any canal or foraminal stenosis. He was then referred for inpatient rehab, he was accepted and transferred to inpatient rehab in a safe and stable manner. He otherwise did well throughout the stay. Vital Signs/Physical Exam: Temp Pulse Resp BP Pulse Ox 98.3 F 54 18 121/68 97 05/26/19 12:00 05/26/19 12:00 05/26/19 12:00 05/26/19 12:00 05/26/19 12:00 General: Alert, In no apparent distress, Obese HEENT: Atraumatic, PERRLA, EOMI Neck: Supple, JVD not distended Respiratory: Clear to auscultation bilaterally, Normal air movement Cardiovascular: Regular rate/rhythm, Normal S1 S2 Gastrointestinal: Normal bowel sounds, No tenderness Musculoskeletal: No tenderness Integumentary: No rashes Neurological: Normal speech, Normal tone, Normal affect Lymphatics: No axilla or inguinal lymphadenopathy Laboratory Data at Discharge: WBC 9.2 K/uL (4.3-10.9) 05/23/19 06:13 Hgb 9.6 g/dL (13.6-17.9) L 05/23/19 06:13 Hct 28.1 % (39.6-49.0) L 05/23/19 06:13 Plt Count 180 K/uL (152-406) 05/23/19 06:13 PT 20.6 SECONDS (9.5-12.5) H 05/26/19 04:00 INR 1.79 05/26/19 04:00 Sodium 141 mmol/L (136-145) 05/23/19 06:13 Potassium 4.2 mmol/L (3.5-5.1) 05/23/19 06:13 BUN 75 mg/dL (7-18) H 05/23/19 06:13 Creatinine 9.95 mg/dL (0.55-1.3) H* D 05/23/19 06:13 Glucose 86 mg/dL (74-106) 05/23/19 06:13 Uric Acid 5.9 mg/dL (3.5-7.2) D 05/23/19 06:13 Phosphorus 7.6 mg/dL (2.5-4.9) H 05/23/19 06:13 Magnesium 2.7 mg/dL (1.8-2.4) H 05/23/19 06:13 Total Bilirubin 0.4 mg/dL (0.2-1.0) 05/22/19 08:40 AST 13 U/L (15-37) L 05/22/19 08:40 ALT 16 U/L (12-78) 05/22/19 08:40 Alkaline Phosphatase 107 U/L (45-117) 05/22/19 08:40 Troponin I 0.05 ng/mL (0.0-0.045) H 05/22/19 18:40 Lipase 354 U/L (73-393) 05/22/19 08:40 Home Medications: Acetaminophen [Tylenol] 2 tab PO DAILY PRN 05/22/19 Antiox#10/Om3/Dha/Epa/Lut/Zeax [I-Caps with Lutein-[place] 3 Sfg] 1 tab PO DAILY 05/22/19 Cholecalciferol (Vitamin D3) [Vitamin D3] 1 cap PO SEECOM 05/22/19 Cyanocobalamin (Vitamin B-12) [Vitamin B-12] 1 tab PO BEDTIME 05/22/19 Diphenhydramine HCl [Benadryl Allergy] 1 tab PO BID 05/22/19 Docusate Sodium [Stool Softener] 1 tab PO BEDTIME 05/22/19 Doxazosin Mesylate [Cardura] 1 tab PO SEECOM 05/22/19 Febuxostat [Uloric] 1 tab PO DAILY 05/22/19 Folic Acid/Vit Bcomp,C [[place]-Tenzin Tablet] 1 tab PO DAILY 05/22/19 Loratadine [Claritin*] 1 tab PO DAILY 05/22/19 Lysine 1 tab PO DAILY 05/22/19 Metoprolol Succinate [Toprol Xl] 1 tab PO BID 05/22/19 Ranitidine [Zantac*] 1 tab PO BEDTIME 05/22/19 Sevelamer Carbonate 2 tab PO TID 05/22/19 Warfarin Sodium [Coumadin*] 4.5 mg PO BEDTIME 05/22/19 Followup: Keyon Love MD [Primary Care Provider] - 1-2 Weeks (Call to schedule an appointment) Time spent managing pt's care (in minutes): 55
[2019-05-27 03:33] LABS: HBsAG Nonreactive (Nonreactive)
== END 2019-05-26 13:40 | DRG 640 ==
LOC: ER 06:51 → ERHOLD 10:39 → 4TH 13:25
PROVIDERS: ADMIT Family Medicine; ATTEND Family Medicine
PROC: 5A1D70Z Performance of Urinary Filtration, Intermittent, Less than 6 Hours Per Day (ICD-10-PCS; principal; 2019-05-23)
PROC: 5A1D70Z Performance of Urinary Filtration, Intermittent, Less than 6 Hours Per Day (ICD-10-PCS; 2019-05-23)
DX: E86.0 Dehydration (principal); N18.6 End stage renal disease; I13.2 Hypertensive heart and chronic kidney disease with heart failure and with stage 5 chronic kidney disease, or end stage renal disease; I50.32 Chronic diastolic (congestive) heart failure; R55 Syncope and collapse; R53.1 Weakness; F03.90 Unspecified dementia, unspecified severity, without behavioral disturbance, psychotic disturbance, mood disturbance, and anxiety; Z99.2 Dependence on renal dialysis; R00.1 Bradycardia, unspecified; Z86.711 Personal history of pulmonary embolism; Z85.528 Personal history of other malignant neoplasm of kidney; E66.01 Morbid (severe) obesity due to excess calories; Z68.33 Body mass index [BMI] 33.0-33.9, adult; I83.009 Varicose veins of unspecified lower extremity with ulcer of unspecified site; Z90.5 Acquired absence of kidney; D63.1 Anemia in chronic kidney disease
CPT/HCPCS: 36415; 71045; 72148; 80048; 80076; 81003; 81015; 83690; 83735; 83880; 84100; 84145; 84484; 84550; 85025; 85610; 86317; 86850; 86900; 86901; 87040; 87070; 87077; 87086; 87088; 87186; 87205; 87340; 90935; 93005; 94640; 96365; 96366; 97110; 97116; 97161; 97530; 99285; J0696; J1644; J2250; J7030

== ENCOUNTER 2019-05-25 14:26 | Inpatient (IN) | payer OTHER ==
--- NOTE | 2019-05-26 10:54 | R.PREADM ---
SCREENING DATE AND TIME 05/26/2019 08:49 (CDT) ANTICIPATED REHAB ADMISSION DATE 05/28/2019 REFERRING FACILITY [facility] REFERRAL DATE AND TIME 05/26/2019 08:49 (CDT) ACUTE ADMIT DATE 05/22/2019 Previous Rehabilitation(s): No. REFERRING PHYSICIAN Keyon Love REHAB FACILITY [facility] CLINICAL LIAISON [place] Adams PHYSICIAN REVIEWER Dr. Gamal Lafleur M.D. [facility]# [id number] [id number] NAME CHELA RUBALCAVA [address]DRESS [address] PH[address] [facility] [id number] DATE OF 1935 AGE 84 SSN# [id number] GENDER male MARITAL STATUS RACE white ADMIT FROM 02 - [facility] PRE-HOSPITAL LIVING SETTING 01 - Home (private home/apt. board/care, assisted living, [place] [facility], transitional living) HOME TYPE AND DETAILS Type of home: single family house # of steps to enter the residence: 0 # of steps within the residence: 0 # of levels in the residence: 1 PRE-HOSPITAL LIVING WITH Family/Relatives FAMILY SUPPORT Yes PRIMARY FAMILY CONTACT NAME Nohelia Rubalcava PRIMARY FAMILY CONTACT PHONE PHONE PRIMARY FAMILY CONTACT ON ADM.? no IS PRIMARY FAMILY CONTACT AUTH. REP.? no 1ST EMERGENCY CONTACT Nohelia Rubalcava 1ST CONTACT PHONE PHONE 1ST CONTACT ON ADM. no IS 1ST CONTACT AUTH. REP.? no PHONE 2ND CONTACT ON ADM.? no PATIENT EMPLOYMENT STATUS Retired (for age) PATIENT EMPLOYER No Employer PAYOR INFORMATION: 1ST PAYOR NAME MEDICARE 1ST PAYOR PHONE 1ST PAYOR INJURY/ILLNESS DUE TO ACCIDENT? No ANOTHER CONSTITUTION PARTY RESPONSIBLE? No PRIMARY REHAB/ACUTE DIAGNOSIS: left hip fx ONSET DATE 02/18/2019 REHAB IMPAIRMENT CATEGORY ([place]): 07 Fracture of LE (FracLE) MEETS 60% rule AFFECTED EXTREMITIES: LLE PRIMARY DIAGNOSIS-RELATED SURGERIES: No surgeries related to the primary diagnosis were performed. COMORBID REHAB/ACUTE DIAGNOSES: - N/A end stage renal disease hypertension INTERVENTIONS: - Hypertension Fluid management Medications VS RISK FOR COMPLICATIONS: - Hypertension CVA Hypotension [place] TIA SUMMARY OF ACUTE HOSPITALIZATION: Pt. is a 84 yo Right-handed white male. On 02/18/2019 he was admitted to [facility] with diagnosis left hip fx. His impairment category is Orthopaedic Disorders 08 - Unilateral Hip Fracture (08.11). Pre-morbidly, Pt. was independent/mod-I in Self-Care, Sphincter Control, Transfers Control, Locomotio n, Communication, and Social Cognition; and he had good Sphincter Control. Currently, he has deficits of Self-Care, Transfers Control, Locomotion, Endurance, Balance, and Safet y Awareness. Pt. is now referred to [facility] for acute in-patient rehabilitation in order to maximize patient's functional independence in activities of daily living, strength, ROM, and mobi lity. Patient has realistic goal of being discharged at assistance level 6-Gisselle to reside at Home with Fam connie/Relatives. Chela Rubalcava is an 84 year old male that lives in a single sheela house with his . They had 5 steps to enter and had a ramp that was built recently. Patient was ambulatory with a RW and needs assistance with ADLs and self care. Patient had a hip fracture and was transferred to SNF for rehab and was discharged a week ago. On 05/22/2019, patient started to feel week and describe it as near syncope and cannot hold up his legs and was admitted to [facility] and treated. He is now medically stable but in need of 24-hour nursing, doctor supervision and oversite while receiving active and ongoing intensive reasonably expected to participate in 3hours of therapy a day/15 hours per week and receive care with an intensive interdisciplinary approach. PAST MEDICAL HISTORY end stage renal disease hypertension CHF MEDICATION ALLERGIES: ADHESIVE TAPE codeine Penicillin ENVIRONMENTAL ALLERGIES: - Substance Allergies None Known - Other Allergies None Known CODE STATUS: Full code WEIGHT/HEIGHT/BMI: WEIGHT 261 lbs HEIGHT 6' 2" BMI 33.5 DIET: - Diet Type Regular - Diet - Solid Texture Regular - Diet - Liquid Texture Regular - Tube Feed N/A REVIEW OF SYSTEMS: - Gen Alert and awake Lying in bed No apparent distress Oriented to: person, time, and place - Vital Signs Vital signs stable, afebrile - CVS RRR VITAL SIGNS Temperature: 98.3 F SBP/DBP: 134/64 Pulse: 68 Resp: 16 Vital signs stable, afebrile MEDICATIONS/TREATMENT: Other- See attached MAR (Medication Administration Record). CURRENT SPHINCTER CONTROL: Pre-hospital bladder status: continent # of bladder accidents in the last 7 days prior to screenin Pre-hospital bowel status: continent # of bowel accidents in the last 7 days prior to screenin Last Bowel Movement Date: 05/26/2019 DETAILED CURRENT FUNCTIONAL STATUS: - Bladder accident frequency: Ind - No accidents in the past 7 days - Bowel accident frequency: Ind - No accidents in the past 7 days - Walking score based on distance walked: 2(5149ft) - Wheelchair score based on distance traveled: 1(<=50ft) FUNCTIONAL STATUS: - Self-Care A. Eating Ind sup B. Grooming Ind sup C. Bathing Ind modA D. Dressing - Upper Ind sup E. Dressing - Lower Ind Levi F. Toileting Ind Levi - Sphincter Control G: Bladder control Ind Ind H: Bowel control Ind Ind - Transfers Control I. Bed/Chair/Wheelchair Ind modA J. Toilet Ind modA K. Tub/Shower Ind modA - Locomotion L. Walk/Wheelchair (C) Ind modA L. Walk/Wheelchair (W) Ind ADNO M. Stairs Ind ADNO - Communication N. Comprehension (B) Ind Gisselle O. Expression (B) Ind Gisselle - Social Cognition P. Social Interaction Ind Gisselle Q. Problem Solving Ind Gisselle R. Memory Ind Gisselle - Endurance Poor - Balance Poor - Safety Awareness Fair QI SCORES:: - Self-Care A. Eating 05-Setup or clean-up assistance B. Oral hygiene 05-Setup or clean-up assistance C. Toileting hygiene 04-Supervision or touching assistance E. Shower/bathe self 03-Partial/moderate assistance F. Upper body dressing 05-Setup or clean-up assistance G. Lower body dressing 03-Partial/moderate assistance H. Putting on/taking off footwear 02-Substantial/maximal assistance - Mobility A. Roll left and right 03-Partial/moderate assistance B. Sit to lying 03-Partial/moderate assistance C. Lying to sitting on side of bed 03-Partial/moderate assistance D. Sit to stand 03-Partial/moderate assistance E. Chair/rrl-vr-yypiw transfer 03-Partial/moderate assistance F. Toilet transfer 03-Partial/moderate assistance G. Car transfer 88-Not attempted due to medical condition or safety concerns I. Walk 10 feet 03-Partial/moderate assistance J. Walk 50 feet with two turns 03-Partial/moderate assistance K. Walk 150 feet 88-Not attempted due to medical condition or safety concerns L. Walking 10 feet on uneven surfaces 88-Not attempted due to medical condition or safety concerns M. 1 step (curb) 88-Not attempted due to medical condition or safety concerns N. 4 steps 88-Not attempted due to medical condition or safety concerns O. 12 steps 88-Not attempted due to medical condition or safety concerns P. Picking up object 88-Not attempted due to medical condition or safety concerns R. Wheel 50 feet with two turns 88-Not attempted due to medical condition or safety concerns S. Wheel 150 feet 88-Not attempted due to medical condition or safety concerns - Bladder and Bowel Bladder continence 0-Always continent Bowel continence 0-Always continent CURRENT FUNC. DEFICITS: Self-Care, Transfers Control, Locomotion, Endurance, Balance, and Safety Awareness THERAPY NOTES FROM ACUTE CARE: Attached. SPECIAL NEEDS: - Safety Concerns Skin breakdown precautions needed due to skin breakdown risk PRECAUTIONS: - Anterior Hip Precaution No abduction No active extension No adduction across midline No external rotation No hip flexion >90 degrees No internal rotation - Weight Bearing Precaution WBAT left LE PATIENT NEEDS ACTIVE AND ONGOING THERAPEUTIC INTERVENTION OF MULTIPLE THERAPY DISCIPLINES, INCLUDING: - Dietary and Nutrition Adequate Nutrition. Nutritional Education. Nutritional Supplements. PATIENT NEEDS CLOSE MEDICAL SUPERVISION BY A REHABILITATION PHYSICIAN FOR: Bowel and Bladder Management Coordination of Treatment Team Medical and Co-Morbidity Management PATIENT REQUIRES 24X7 REHAB NURSING FOR MEDICAL AND FUNCTIONAL MGT. OF THE FOLLOWING DEFICITS: ADL's Ambulation Bowel and Bladder Management Cognition Communication Disease Management Medication Management Patient/Family Education Providing Safe Environment Transfers PATIENT REQUIRES INTENSIVE, COORDINATED INTERDISCIPLINARY APPROACH TO REHAB: Arranging Home Equipment/Services Discharge Planning Family Intervention/Training Foil Stamp Operator/Case Management PATIENT REHAB POTENTIAL: Kenny RUBALCAVA is able and expected to receive 3 hours of individualized therapy daily on at least 5 of monica ry 7 days Kenny CHINs prognosis for significant practical improvement within a reasonable period of time appears Good Expected level of measurable improvement will be of a practical value to Kenny RUBALCAVA's functional capaci ty or adaptations to impairments Has a viable Discharge Plan Medically appropriate; condition is sufficiently stable to participate in intensive rehab program DISCHARGE PLAN: - Estimated Length of Stay (days) 14. - Consensus on plan Discharge plan has been discussed with primary caregiver. Patient/Family is in agreement with the marleny n. Primary caregiver is in agreement with the plan. - Patient/Family Goals Return home with assistance. - Planned Living Setting Upon Discharge Home, to live with Family/Relatives. RECOMMENDED CARE LEVEL: IRF RECOMMENDATION DETAILS: Recommended Admission to Comprehensive Rehabilitation Program to Increase Functional Menard SCREENER'S COMPLETENESS CONFIRMATION: - Screening Confirmation The patient data collection on this preadmission screening form is finished PHYSICIANS REVIEW AND ADMISSION DETERMINATION Admit - Based on my review of the Pre-Admission Screening results, in my medical judgment and experie nce, I concur with the findings and recommend admission to [facility], as this patient requires an IRF level of care. SIGNATURE PANEL: Clinical Liaison - [electronically] signed by Sole Baltazar on 05/26/2019 at 09:55 (CDT) Clinical Liaison - [electronically] signed by Rain Adams on 05/26/2019 at 09:58 (CDT) Physician Reviewer - [electronically] signed by Dr. Gamal Lafleur M.D. on 05/26/2019 at 10:54 (CDT )
[2019-05-26] MEDS ORDERED: DOXAZOSIN 2 MG TAB PO PRN (14:46)
[2019-05-26] MEDS: SEVELAMER CARBONATE 800 MG TABLET PO SCH (17:13)
[2019-05-26] MEDS: DOCUSATE NA 100 MG CAP PO SCH (20:24)
[2019-05-26] MEDS: METOPROLOL XL 25 MG TAB PO SCH (20:24)
[2019-05-26] MEDS: WARFARIN SODIUM 2 MG TAB PO SCH (20:25)
[2019-05-26] MEDS: RANITIDINE 150 MG TABLET PO SCH (20:25)
[2019-05-26] MEDS: WARFARIN SODIUM 2.5 MG TAB PO SCH (20:26)
[2019-05-26] MEDS ORDERED: WARFARIN SODIUM 4 MG TAB PO SCH (21:00)
--- NOTE | 2019-05-26 21:17 | P.CNS ---
Date of Consult: 05/26/19 Reason for Consult: ESRD Requesting Physician: Gamal Lafleur Primary Care Provider: Dr. Love Chief Complaint: LE Weakness History of Present Illness: 84 yo WM CKD, HTN presented to the ER with less than 24 hours of severe, progressive LE weakness with associated fatigue and malaise. No instigating events. No signs or symptoms of infection. Not able to stand or ambulate. Good appetite. No cough, fever or dysuria. Missed his HD today. Limited HPI/ ROS due to mild memory impairment. Feeling better and now admitted to the [facility]. Allergies adhesive tape Adverse Reaction (Verified 03/06/18 20:27) Itching codeine Adverse Reaction (Verified 03/06/18 20:27) Itching morphine Adverse Reaction (Verified 03/06/18 20:27) Itching Home medications list reviewed: Yes Home Medications: Acetaminophen [Tylenol] 2 tab PO DAILY PRN 05/22/19 Antiox#10/Om3/Dha/Epa/Lut/Zeax [I-Caps with Lutein-[place] 3 Sfg] 1 tab PO DAILY 05/22/19 Cholecalciferol (Vitamin D3) [Vitamin D3] 1 cap PO SEECOM 05/22/19 Cyanocobalamin (Vitamin B-12) [Vitamin B-12] 1 tab PO BEDTIME 05/22/19 Diphenhydramine HCl [Benadryl Allergy] 1 tab PO BID 05/22/19 Docusate Sodium [Stool Softener] 1 tab PO BEDTIME 05/22/19 Doxazosin Mesylate [Cardura] 1 tab PO SEECOM 05/22/19 Febuxostat [Uloric] 1 tab PO DAILY 05/22/19 Folic Acid/Vit Bcomp,C [Lucila-Tenzin Tablet] 1 tab PO DAILY 05/22/19 Loratadine [Claritin*] 1 tab PO DAILY 05/22/19 Lysine 1 tab PO DAILY 05/22/19 Metoprolol Succinate [Toprol Xl] 1 tab PO BID 05/22/19 Ranitidine [Zantac*] 1 tab PO BEDTIME 05/22/19 Sevelamer Carbonate 2 tab PO TID 05/22/19 Warfarin Sodium [Coumadin*] 4.5 mg PO BEDTIME 05/22/19 - Past Medical/Surgical History Diabetic: No -: HTN -: Stage 4 kidney -: DVT filter -: Kidney Ca -: 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 -: DVT filter placed -: cataract sx -: hemhorroid sx -: bilateral knee sx - Family History Mother Medical History: Heart disease, Hypertension, Cancer Notes: breast cancer [place] Father Medical History: Heart disease, Hypertension Notes: CHF Sister Medical History: Hypertension, Kidney disease Notes: breast removed d/t precancer - Social History Alcohol use: No CD- Drugs: No Caffeine use: No Place of Residence: Home Review of Systems 10-point ROS is otherwise unremarkable General: Weakness Respiratory: SOB with Excertion Cardiovascular: Edema Neurological: Weakness Physical Examination Temp Pulse Resp BP Pulse Ox 98 F 77 18 158/69 H 98 05/26/19 21:06 05/26/19 21:06 05/26/19 21:06 05/26/19 21:06 05/26/19 21:06 General: In no apparent distress, Oriented x3, Cooperative HEENT: Atraumatic Neck: Supple Respiratory: Clear to auscultation bilaterally Cardiovascular: Regular rate/rhythm, No rubs, Edema Gastrointestinal: Soft and benign, No guarding Musculoskeletal: No clubbing, No contractures Integumentary: No rashes, Other (LE Venous Stasis) Neurological: Normal speech Blood work reviewed in the chart. BUN 79; Cr 9.95; Hgb 9.6 Imagings Data: EXAM DESCRIPTION: MRI - Lumbar Spine Wo Con- 05/25/2019 7:19 pm CLINICAL HISTORY: Acute BL LE Weakness. Hx RCC. COMPARISON: Abdomen Pelvis W/Wo Contrast dated 03/10/2018 FINDINGS: Vertebral body heights are within normal limits. Blooming artifact is present the anterior aspect of the lumbar. No aggressive marrow pattern is observed. No fracture is suspected. The conus medullaris terminates at a normal level. No thickening of the cauda equina or clumping of nerve roots seen. L1-2 level: No significant findings. L2-3 level: Mild posterior disc bulge with mild facet and ligamentum flavum hypertrophy. Mild narrowing of the anterior inferior aspects of both exit foramina. L3-4 level: Asymmetric posterior disc bulge to the right is seen with moderate facet hypertrophy, greater on the right. Mild narrowing of the right lateral recess and exit foramina. L4-5 level: Mild posterior disc bulge with mild facet and ligamentum flavum hypertrophy. No canal or foraminal stenosis. L5-S1 level: Mild posterior disc bulge with mild facet and ligamentum hypertrophy. No canal or foraminal stenosis. Significant facet hypertrophy is present a small external synovial cyst on the right measuring 6 mm. 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 No severe canal or foraminal stenosis at any level is seen. Conclusions/Impression: A/ Severe LE weakness of unclear etiology. Mild progressive dementia. ESRD on HD. HTN with CKD/ CHF. Diastolic CHF, chronic. Anemia in CKD. PRASANNA/ Secondary HyperPTH. Bradycardia on metoprolol. P/ Continue current POC and medications. Acute HD as ordered. Monitor Bradycardia. Follow up cultures. No NSAIDs. AM labs. Daily weight. PT as tolerated.
[2019-05-26] MEDS ORDERED: MANNITOL 25% 12.5 GM/50 ML VIAL IV PRN (21:21)
[2019-05-26] MEDS ORDERED: NA CHLORIDE 0.9% 1,000 ML IV PRN (21:21)
[2019-05-26] MEDS ORDERED: ALBUMIN HUMAN 25% 50 ML IV SCH (22:00)
[2019-05-27 03:32] LABS: Urine Appearance CLEAR; Urine Bilirubin NEGATIVE (NEG); Urine Blood TRACE (NEG); Urine Color YELLOW; Urine Glucose TRACE (NEG); Urine Protein 3+ (NEG); Urine Urobilinogen 0.2 mg/dL (0.2-1.0); Urine pH 6.5 (5.0-7.0)
[2019-05-27 04:23] LABS: Urine Culture Reflex Order NOT NEEDED
[2019-05-27 04:24] LABS: Urine Bacteria <20 /HPF (NONE SEEN); Urine RBC <5 /HPF (NONE SEEN)
[2019-05-27 06:44] LABS: Albumin 3.2 g/dL (3.4-5.0); Magnesium 2.5 mg/dL (1.8-2.4); Potassium 4.6 mmol/L (3.5-5.1); Prealbumin 19.6 mg/dL (20-40)
[2019-05-27 07:11] LABS: Protime INR 1.76
[2019-05-27] MEDS ORDERED: ALLOPURINOL PO SCH (08:00)
[2019-05-27] MEDS: [UNRECOGNIZED DRUG - OTHER] PO SCH (08:00)
[2019-05-27] MEDS: SEVELAMER CARBONATE 800 MG TABLET PO SCH ×3 (08:34→16:51)
[2019-05-27] MEDS: MULTIVITAMINS,THERAPEUT 1 TAB PO SCH (08:35)
[2019-05-27] MEDS: LORATADINE 10 MG TAB PO SCH (08:36)
[2019-05-27] MEDS: CYANOCOBALAMIN 1,000 MCG TAB PO SCH (08:36)
[2019-05-27] MEDS: METOPROLOL XL 25 MG TAB PO SCH ×2 (08:36→19:24)
[2019-05-27] MEDS: ACETAMINOPHEN 325 MG TABLET PO PRN ×2 (08:37→19:24)
[2019-05-27 09:04] LABS: Absolute Lymphocytes (CBC) 1.2 K/uL (0.7-4.9); Basophils % 0.6 % (0-1.3); Hematocrit 29.8 % (39.6-49.0); Lymphocytes % 17.7 % (15.3-44.8); MPV 9.7 fL (7.6-11.3); RBC Red Blood Cell Count 3.14 M/uL (4.33-5.43)
--- NOTE | 2019-05-27 16:17 | FAST ---
ENCOUNTER DATE AND TIME: 05/27/2019 08:00 (CDT) NAME CHELA RUBALCAVA DATE OF : 1935 DATE OF ADMISSION: 05/26/2019 13:40 (CDT) PHONE: AGE: 84 N# [id number] GENDER: Male ENCOUNTER PHYSICIAN: Dr. Gamal Lafleur M.D. ADMISSION DIAGNOSIS: - Orthopaedic Disorders 08 - Unilateral Hip Fracture (03.29) left hip fx. ROLL LEFT AND RIGHT: ROLL LEFT AND RIGHT - STEP 1: Does the patient complete the activity by him/herself with no assistance (physical, verbal/nonverbal cueing, setup/clean-up)? No. ROLL LEFT AND RIGHT - STEP 2: Does the patient need only setup/clean-up assistance from one helper? No. ROLL LEFT AND RIGHT - STEP 3: Does the patient need only verbal/nonverbal cueing or touching/steadying/contact guard assistance fro m one helper? Yes. 1. [id number] ADMISSION PERFORMANCE: Supervision or touching assistance CODE: 04 SIT TO LYING: SIT TO LYING - STEP 1: Does the patient complete the activity by him/herself with no assistance (physical, verbal/nonverbal cueing, setup/clean-up)? No. SIT TO LYING - STEP 2: Does the patient need only setup/clean-up assistance from one helper? No. SIT TO LYING - STEP 3: Does the patient need only verbal/nonverbal cueing or touching/steadying/contact guard assistance fro m one helper? Yes. 1. [id number] ADMISSION PERFORMANCE: Supervision or touching assistance CODE: 04 LYING TO SITTING: LYING TO SITTING ON SIDE OF BED - STEP 1: Does the patient complete the activity by him/herself with no assistance (physical, verbal/nonverbal cueing, setup/clean-up)? No. LYING TO SITTING ON SIDE OF BED - STEP 2: Does the patient need only setup/clean-up assistance from one helper? No. LYING TO SITTING ON SIDE OF BED - STEP 3: Does the patient need only verbal/nonverbal cueing or touching/steadying/contact guard assistance fro m one helper? Yes. 1. [id number] ADMISSION PERFORMANCE: Supervision or touching assistance CODE: 04 SIT TO STAND: SIT TO STAND - STEP 1: Does the patient complete the activity by him/herself with no assistance (physical, verbal/nonverbal cueing, setup/clean-up)? No. SIT TO STAND - STEP 2: Does the patient need only setup/clean-up assistance from one helper? No. SIT TO STAND - STEP 3: Does the patient need only verbal/nonverbal cueing or touching/steadying/contact guard assistance fro m one helper? Yes. 1. [id number] ADMISSION PERFORMANCE: Supervision or touching assistance CODE: 04 TRANSFERS: BED, CHAIR: CHAIR/[id number] TRANSFER - STEP 1: Does the patient complete the activity by him/herself with no assistance (physical, verbal/nonverbal cueing, setup/clean-up)? No. CHAIR/[id number] TRANSFER - STEP 2: Does the patient need only setup/clean-up assistance from one helper? No. CHAIR/[id number] TRANSFER - STEP 3: Does the patient need only verbal/nonverbal cueing or touching/steadying/contact guard assistance fro m one helper? Yes. 1. [id number] ADMISSION PERFORMANCE: Supervision or touching assistance CODE: 04 TRANSFER TOILET: TOILET TRANSFER - STEP 1: Does the patient complete the activity by him/herself with no assistance (physical, verbal/nonverbal cueing, setup/clean-up)? No. TOILET TRANSFER - STEP 2: Does the patient need only setup/clean-up assistance from one helper? No. TOILET TRANSFER - STEP 3: Does the patient need only verbal/nonverbal cueing or touching/steadying/contact guard assistance fro m one helper? Yes. 1. [id number] ADMISSION PERFORMANCE: Supervision or touching assistance CODE: 04 TRANSFERS: CAR: Not attempted due to environmental limitations (e.g., lack of equipment, weather constraints) CODE: 10 WALK 10 FEET: WALK 10 FEET - STEP 1: Does the patient complete the activity by him/herself with no assistance (physical, verbal/nonverbal cueing, setup/clean-up)? No. WALK 10 FEET - STEP 2: Does the patient need only setup/clean-up assistance from one helper? No. WALK 10 FEET - STEP 3: Does the patient need only verbal/nonverbal cueing or touching/steadying/contact guard assistance fro m one helper? Yes. 1. [id number] ADMISSION PERFORMANCE: Supervision or touching assistance CODE: WALK 50 FEET: WALK 50 FEET - STEP 1: Does the patient complete the activity by him/herself with no assistance (physical, verbal/nonverbal cueing, setup/clean-up)? No. WALK 50 FEET - STEP 2: Does the patient need only setup/clean-up assistance from one helper? No. WALK 50 FEET - STEP 3: Does the patient need only verbal/nonverbal cueing or touching/steadying/contact guard assistance fro m one helper? Yes. 1. [id number] ADMISSION PERFORMANCE: Supervision or touching assistance CODE: WALK 150 FEET: WALK 150 FEET - STEP 1: Does the patient complete the activity by him/herself with no assistance (physical, verbal/nonverbal cueing, setup/clean-up)? No. WALK 150 FEET - STEP 2: Does the patient need only setup/clean-up assistance from one helper? No. WALK 150 FEET - STEP 3: Does the patient need only verbal/nonverbal cueing or touching/steadying/contact guard assistance fro m one helper? Yes. 1. [id number] ADMISSION PERFORMANCE: Supervision or touching assistance CODE: WALK 10 FEET UNEVEN: Not attempted due to medical condition or safety concerns CODE: 88 1 STEP (CURB): Not attempted due to medical condition or safety concerns CODE: 88 PICKING UP OBJECT: Not attempted due to medical condition or safety concerns CODE: 88 DOES THE PATIENT USE A WHEELCHAIR/SCOOTER? Q1. DOES THE PATIENT USE A WHEELCHAIR/SCOOTER?: No CODE: 0 INDICATE THE TYPE OF WHEELCHAIR/SCOOTER USED: CODE: EXPR INDICATE THE TYPE OF WHEELCHAIR/SCOOTER USED: CODE: EXPR BLADDER AND BOWEL: CODE: EXPR CODE: EXPR SIGNATURE PANEL: The following modified sections: 1. [id number] Admission Performance, 1. [id number] Admission Performance, 1. [id number] Admission Performance, 1. [id number] Admission Performance, 1. [id number] Admission Performance, 1. [id number] Admission Performance, 1. [id number] Admission Performance, 1. [id number] Admission Performance , 1. [id number] Admission Performance, 1. [id number] Admission Performance, 1. [id number] Admission Performanc e, Q1. Does the patient use a wheelchair/scooter? were [electronically] signed by Rhett Bustos on SatMay 27 2019 16:16:36 [id number] (Central Daylight Time)
--- NOTE | 2019-05-27 17:08 | R.HP ---
FACILITY: [facility] ENCOUNTER DATE AND TIME: 05/27/2019 17:03 (CDT) MR#: [id number] NAME CHELA RUBALCAVA ADDRESS: [address] [place] [address]: [place] [address] PHONE: DATE OF : 1935 AGE: 84 SSN# [id number] GENDER: Male DEXTERITY Right-handed MARITAL STATUS RACE White PRE-HOSPITAL LIVING SETTING 01 - Home (private home/apt. board/care, assisted living, senior living, transitional living) PRE-HOSPITAL LIVING WITH Family/Relatives ENCOUNTER PHYSICIAN: Dr. Gamal Lafleur M.D. REFERRING DOCTOR: Keyon Love DATE OF ADMISSION: 05/26/2019 13:40 (CDT) REFERRING FACILITY [facility] HOME TYPE AND DETAILS: Type of home: single family house # of steps to enter the residence: 0 # of steps within the residence: 0 # of levels in the residence: 1 ADMISSION DIAGNOSIS: left hip fx ONSET DATE: 02/18/2019 PRIMARY DIAGNOSIS-RELATED SURGERIES: No surgeries related to the primary diagnosis were performed. SECONDARY/COMORBID DIAGNOSES (TIERED): - N/A end stage renal disease hypertension HISTORY OF PRESENT ILLNESS (HPI): Pt. is a 84 yo Right-handed white male. On 02/18/2019 he was admitted to [facility] with diagnosis left hip fx. His impairment category is Orthopaedic Disorders 08 - Unilateral Hip Fracture (08.11). Pre-morbidly, Pt. was independent/mod-I in Self-Care, Sphincter Control, Transfers Control, Locomotio n, Communication, and Social Cognition; and he had good Sphincter Control. Currently, he has deficits of Self-Care, Transfers Control, Locomotion, Endurance, Balance, and Safet y Awareness. Pt. is now referred to [facility] for acute in-patient rehabilitation in order to maximize patient's functional independence in activities of daily living, strength, ROM, and mobi lity. Patient has realistic goal of being discharged at assistance level 6-Gisselle to reside at Home with Fam connie/Relatives. Chela Rubalcava is an 84 year old male that lives in a single sheela house with his . They had 5 steps to enter and had a ramp that was built recently. Patient was ambulatory with a RW and needs assistance with ADLs and self care. Patient had a hip fracture and was transferred to SNF for rehab and was discharged a week ago. On 05/22/2019, patient started to feel week and describe it as near syncope and cannot hold up his legs and was admitted to [facility] and treated. He is now medically stable but in need of 24-hour nursing, doctor supervision and oversite while receiving active and ongoing intensive reasonably expected to participate in 3hours of therapy a day/15 hours per week and receive care with an intensive interdisciplinary approach. MEDICATION ALLERGIES: ADHESIVE TAPE codeine Penicillin ENVIRONMENTAL ALLERGIES: - Substance Allergies None Known - Other Allergies None Known PAST MEDICAL HISTORY: end stage renal disease hypertension CHF FAMILY HISTORY: Family history is not contributory. SOCIAL HISTORY: - Home Living Family/Relatives REVIEW OF SYSTEMS: - Gen No Chills Fatigue No Fever - Eyes No Double Vision No itchiness - ENMT No Difficulty Swallowing - CVS No Chest Discomfort No Chest Pain Fatigue No Weight Gain - Resp No Cough No Shortness of Breath - GI Continent No Abdominal Pain No Constipation No Diarrhea - Continent No Kidney Pain No Painful Urination No Urinary Urgency - MSK No Joint Pain Muscle Cramps No Stiffness - Skin No Itching No Rash No Suspicious Lesions - Neuro Coordination Difficulty No Difficulty with Concentration No Memory Loss No Seizures Weakness - Psych No Anxiety No Depression No HIV Exposure No Persistent Infections No Seasonal Allergies - Endo No Cold/Heat Intolerance No Excessive Hunger No Excessive Thirst No Excessive Urination PHYSICAL EXAM - Gen Alert and awake Lying in bed No apparent distress Oriented to: person, time, and place - Skin No breakdown No abnormalities - Eyes No abnormalities - ENMT No abnormalities - Neck No abnormalities - CVS RRR - Chest No abnormalities - Abd Soft - GI nondistended Deferred - No abnormalities - Ext Mild left lower extremity edema. - MSK 4+/5 weakness in left lower extremity - Neuro 4/5 strength left lower extremity. - Psych No abnormalities VITAL SIGNS Temperature: 98.3 F SBP/DBP: 134/64 Pulse: 68 Resp: 16 NURSING: - Shower allowing shower - Skin care per protocol PRECAUTIONS: - Anterior Hip Precaution No abduction No active extension No adduction across midline No external rotation No hip flexion >90 degrees No internal rotation - Weight Bearing Precaution WBAT left LE ACTIVITIES OOB only with supervision FUNCTIONAL STATUS: - Self-Care A. Eating Ind sup B. Grooming Ind sup C. Bathing Ind modA D. Dressing - Upper Ind sup E. Dressing - Lower Ind Levi F. Toileting Ind Levi - Sphincter Control G: Bladder control Ind Ind H: Bowel control Ind Ind - Transfers Control I. Bed/Chair/Wheelchair Ind modA J. Toilet Ind modA K. Tub/Shower Ind modA - Locomotion L. Walk/Wheelchair (C) Ind modA L. Walk/Wheelchair (W) Ind ADNO M. Stairs Ind ADNO - Communication N. Comprehension (B) Ind Gisselle O. Expression (B) Ind Gisselle - Social Cognition P. Social Interaction Ind Gisselle Q. Problem Solving Ind Gisselle R. Memory Ind Gisselle - Endurance Poor - Balance Poor - Safety Awareness Fair QI SCORES:: - Self-Care A. Eating 05-Setup or clean-up assistance B. Oral hygiene 05-Setup or clean-up assistance C. Toileting hygiene 04-Supervision or touching assistance E. Shower/bathe self 03-Partial/moderate assistance F. Upper body dressing 05-Setup or clean-up assistance G. Lower body dressing 03-Partial/moderate assistance H. Putting on/taking off footwear 02-Substantial/maximal assistance - Mobility A. Roll left and right 03-Partial/moderate assistance B. Sit to lying 03-Partial/moderate assistance C. Lying to sitting on side of bed 03-Partial/moderate assistance D. Sit to stand 03-Partial/moderate assistance E. Chair/ojl-qq-tnxlo transfer 03-Partial/moderate assistance F. Toilet transfer 03-Partial/moderate assistance G. Car transfer 88-Not attempted due to medical condition or safety concerns I. Walk 10 feet 03-Partial/moderate assistance J. Walk 50 feet with two turns 03-Partial/moderate assistance K. Walk 150 feet 88-Not attempted due to medical condition or safety concerns L. Walking 10 feet on uneven surfaces 88-Not attempted due to medical condition or safety concerns M. 1 step (curb) 88-Not attempted due to medical condition or safety concerns N. 4 steps 88-Not attempted due to medical condition or safety concerns O. 12 steps 88-Not attempted due to medical condition or safety concerns P. Picking up object 88-Not attempted due to medical condition or safety concerns R. Wheel 50 feet with two turns 88-Not attempted due to medical condition or safety concerns S. Wheel 150 feet 88-Not attempted due to medical condition or safety concerns - Bladder and Bowel Bladder continence 0-Always continent Bowel continence 0-Always continent CURRENT FUNC. DEFICITS: Self-Care, Transfers Control, Locomotion, Endurance, Balance, and Safety Awareness MEDICATIONS: - Other See attached MAR (Medication Administration Record) ASSESSMENT: Pt. is a 84 yo Right-handed white male.On 02/18/2019 he was admitted to [facility] with diagnosis left hip fx.His impairment category is Orthopaedic Disorders 08 - Unilateral Hip Fracture (08.11).Pre-mo rbidly, Pt. was independent/mod-I in Self-Care, Sphincter Control, Transfers Control, Locomotion, Com munication, and Social Cognition; and he had good Sphincter Control.Currently, he has deficits of Meli f-Care, Transfers Control, Locomotion, Endurance, Balance, and Safety Awareness.Pt. is now referred t [facility] for acute in-patient rehabilitation in order to maximize patient' s functional independence in activities of daily living, strength, ROM, and mobility.- Rehab Goal Patient has realistic goal of being discharged at assistance level 6-Gisselle to reside at Home with Fam connie/Relatives. Chela Rubalcava is an 84 year old male that lives in a single sheela house with his . They had 5 steps to enter and had a ramp that was built recently. Patient was ambulatory with a RW and needs assistance with ADLs and self care. Patient had a hip fracture and was transferred to SNF for rehab and was discharged a week ago. On 05/22/2019, patient started to feel week and describe it as near syncope and cannot hold up his legs and was admitted to [facility] and treated. He is now medically stable but in need of 24-hour nursing, doctor supervision and oversite while receiving active and ongoing intensive reasonably expected to participate in 3hours of therapy a day/15 hours per week and receive care with an intensive interdisciplinary approach.REHAB PLAN: - Physical Therapy Decreased range of motion - to improve, our physical therapists will perform initial evaluation of pt 's status upon admission and devise an individualized program for increasing patient's Range of Motio n. Gait dysfunction - to improve, our physical therapists will perform initial evaluation of pt's status upon admission and devise an individualized program for Gait Training, and Wheel Chair mobility Inability to transfer - to improve, our physical therapists will perform initial evaluation of pt's s tatus upon admission and devise an individualized program for Bed mobility Need for home safety evaluation - to improve, our physical therapists will perform initial evaluation of pt's status upon admission and devise an individualized program for Home Evaluation Need in caregiver upon discharge - to improve, our physical therapists will perform initial evaluatio n of pt's status upon admission and devise an individualized program for Caregiver Training New precaution - to improve, our physical therapists will perform initial evaluation of pt's status u colin admission and devise an individualized program for Patient precaution education Edema - to improve, our physical therapists will perform initial evaluation of pt's status upon admi ssion and devise an individualized program for Elevation Training, and Lymphedema Therapy Poor balance - to improve, our physical therapists will perform initial evaluation of pt's status upo n admission and devise an individualized program for Balance Training Poor endurance - to improve, our physical therapists will perform initial evaluation of pt's status u colin admission and devise an individualized program for Endurance Training Weakness - to improve, our physical therapists will perform initial evaluation of pt's status upon ad mission and devise an individualized program for Aquatic Therapy, Neuromuscular Reeducation, and Stre ngthening Achieving independence - to improve, our physical therapists will perform initial evaluation of pt's status upon admission and devise an individualized program for Community Reintegration Activities - Occupational Therapy ADL deficits - to improve, our occupation therapists will perform initial evaluation of pt's status u colin admission and devise an individualized program for Bathing, Bed mobility, Community Reintegration , Cooking, Dressing, Eating, Fine Motor Skills, Grooming, Homemaking, Kitchen Mobility, Laundry, Pia ent Education, Safety Awareness, Splinting - Positioning, Transfers(Toilet, Tub, Shower), and Wheel C hair Management Need for summer child caregiver - to improve, our occupation therapists will perform initial evaluation of pt's s tatus upon admission and devise an individualized program for Caregiver Training Weakness - to improve, our occupation therapists will perform initial evaluation of pt's status upon admission and devise an individualized program for Aquatic Therapy, Balance, Endurance, UE ROM, and U E strengthening MEDICAL PLAN: - Anterior Hip Precaution No abduction No active extension No adduction across midline No external rotation No hip flexion >90 degrees No internal rotation - Diet - Liquid Texture Start Regular - Tube Feed Start N/A - Diet Type Start Regular - Posterior Hip Precaution No adduction across midline No external rotation No hip flexion >90 degrees No internal rotation No wheel chair propulsion - Weight Bearing Precaution WBAT left LE - Skin care per protocol - Other See attached MAR (Medication Administration Record) - Diet - Solid Texture Regular - Shower shower DISCHARGE PLAN: - Estimated Length of Stay (days) 14. - Consensus on plan Discharge plan has been discussed with primary caregiver. Patient/Family is in agreement with the marleny n. Primary caregiver is in agreement with the plan. - Patient/Family Goals Return home with assistance. - Planned Living Setting Upon Discharge Home, to live with Family/Relatives. SIGNATURE PANEL: (CDT)
--- NOTE | 2019-05-27 17:09 | PAPE ---
PATIENT: [facility] MR# [id number] REFERRING DOCTOR Keyon Love EVALUATION DATE AND TIME 05/27/2019 17:07 (CDT) NAME CHELA RUBALCAVA DATE OF 1935 AGE 84 PHONE SSN# [id number] GENDER male EVALUATING PHYSICIAN Dr. Gamla Lafleur M.D. ADMISSION DIAGNOSIS: left hip fx ONSET DATE 02/18/2019 SECONDARY/COMORBID DIAGNOSES TIERED: - N/A end stage renal disease hypertension POST-ADMISSION FUNCTIONAL/MEDICAL STATUS: - Bladder Same accident frequency: Ind - No accidents in the past 7 days - Bowel Same accident frequency: Ind - No accidents in the past 7 days - Walking Same score based on distance walked: 2(5149ft) - Wheelchair Same score based on distance traveled: 1(<=50ft) STATUS CHANGE EVALUATION: No change in Functional or Medical Status is identified compared with Pre-Admission screening. PATIENT NEEDS CLOSE MEDICAL SUPERVISION BY A REHABILITATION PHYSICIAN FOR: Bowel and Bladder Management Coordination of Treatment Team Medical and Co-Morbidity Management PATIENT REQUIRES 24X7 REHAB NURSING FOR MEDICAL AND FUNCTIONAL MGT. OF THE FOLLOWING DEFICITS: ADL's Ambulation Bowel and Bladder Management Cognition Communication Disease Management Medication Management Patient/Family Education Providing Safe Environment Transfers PATIENT REQUIRES INTENSIVE, COORDINATED INTERDISCIPLINARY APPROACH TO REHAB: Arranging Home Equipment/Services Discharge Planning Family Intervention/Training All Source Analyst/Case Management LIST OF IDENTIFIED AND POTENTIAL PROBLEMS: Alteration in leisure activities Bladder, Incontinence Blood Pressure, Hypertension/hypotension Issues Bowel, Incontinence Infection, Actual or Potential Mobility Impaired Pain, Alteration in Comfort Self Care Deficit Skin Integrity, Actual or Potential Urinary Tract Infection (UTI), Actual or Potential RISK FOR COMPLICATIONS - Hypertension CVA. Hypotension. [place]. TIA. INTERVENTIONS - Hypertension PATIENT COULD BE AT RISK FOR COMPLICATIONS FROM ADVERSE MEDICAL CONDITIONS DUE TO HIS/HER COMORBIDITI ES AND THE RIGORS OF THE INTENSIVE REHABILLITATION PROGRAM. METHODS OR INTERVENTIONS TO AVOID COMPLIC ATIONS INCLUDE: - Infection Clinical staff to assess and manage the signs and symptoms of infection including fever, redness, war mth, etc. - Urinary Tract Infection - Falls Patient will be evaluated for Fall Precautions and will be placed on Fall Precautions as indicated pe r protocol. - Skin Breakdown Nursing will assess skin daily using assessment tool and will place on Skin Breakdown Precautions as indicated per protocol. - Pain Clinical staff may employ non-medication methods such as massage, distraction, decrease stimulus, etc . as needed. Clinical staff will assess patient's pain level every shift per protocol to assess and e nsure pain management effectiveness. Medications will be given and the pain level re-assessed. PRELIMINARY PLAN OF CARE: - Physical Therapy Patient needs Physical Therapy for a daily minimum of 1.5 hours at least 5 out of 7 days, to improve: Mobility, Strengthening, Transfers, Stretching, ROM, Endurance, Ability to manage stairs, Gait, and Balance. - Speech Therapy Patient needs Speech Therapy for a daily minimum of 0.5 hours at least 5 out of 7 days, to improve: S wallowing, Cognition, Language Skills, and Compensatory Strategies. - Rehabilitation Nursing Patient requires 24x7 Rehabilitation Nursing for: Pain Issues, Identifying and preventing risk factor s, Monitoring and reporting current medical conditions, Assisting with ambulation and transfer, Janel ting with all ADL-s, Teaching patients about disease process and medications, Family teaching, Provid ing safe environment, Bowel and Bladder Issues, Skin Integrity, and Medication Management. Patient needs All Source Analyst and/or Case Management for: Discharge Planning, Arranging Home Equipmen t or Services, and Family Interventions. - Dietary and Nutrition Services Patient needs Dietary and Nutrition Services for: Adequate Nutrition, Nutritional Supplements, and Nu tritional Education. - Occupational Therapy Patient needs Occupational Therapy for a daily minimum of 1.5 hours at least 5 out of 7 days, to impr ove Activities of Daily Living, including: Eating, Grooming, Bathing, Dressing, Toileting, Toilet Tra nsfers, Community Reintegration, Higher functional activities, Adaptive Equipment, Splinting, Househo ld Tasks, and Other activities as determined. POTENTIAL FUNCTIONAL GOALS FOR PATIENT TO ACHIEVE BY DISCHARGE: - Safety Precaution Patient will remain free from falls or injury at time of discharge. - Bed Mobility Patient will perform bed mobility at 4-Levi level of assistance. - Transfers Patient will complete transfers from bed to chair at 4-Levi level of assistance. - Mobility Patient will ambulate 150 ft with 4-Levi level of assistance with RW. PATIENT REHAB POTENTIAL Kenny RUBALCAVA is able and expected to receive 3 hours of individualized therapy daily on at least 5 of monica ry 7 days Kenny RUBALCAVA's prognosis for significant practical improvement within a reasonable period of time appears Good Expected level of measurable improvement will be of a practical value to Kenny RUBALCAVA's functional capaci ty or adaptations to impairments Has a viable Discharge Plan Medically appropriate; condition is sufficiently stable to participate in intensive rehab program DISCHARGE PLAN: - Estimated Length of Stay (days) 14. - Consensus on plan Discharge plan has been discussed with primary caregiver. Patient/Family is in agreement with the marleny n. Primary caregiver is in agreement with the plan. - Patient/Family Goals Return home with assistance. - Planned Living Setting Upon Discharge Home, to live with Family/Relatives. CONCLUSION ON REHABILITATION NECESSITY: I have evaluated patient's pre-admission functional status and, comparing it to the patient's post-ad mission functional status now, I conclude that the pre-admission assessment was accurate. Patient's c ondition on admission supports the medical necessity of admission to IRF. It is safe to proceed with patient's therapy program. SIGNATURE PANEL: (CDT)
[2019-05-27] MEDS: WARFARIN SODIUM 2.5 MG TAB PO SCH (19:23)
[2019-05-27] MEDS: RANITIDINE 150 MG TABLET PO SCH (19:23)
[2019-05-27] MEDS: WARFARIN SODIUM 2 MG TAB PO SCH (19:23)
[2019-05-27] MEDS: DOCUSATE NA 100 MG CAP PO SCH (19:23)
[2019-05-28 06:14] LABS: Absolute Lymphocytes (CBC) 1.6 K/uL (0.7-4.9); Basophils % 0.8 % (0-1.3); Hematocrit 32.2 % (39.6-49.0); Lymphocytes % 21.7 % (15.3-44.8); MPV 8.7 fL (7.6-11.3)
[2019-05-28 06:42] LABS: Albumin 3.3 g/dL (3.4-5.0); Magnesium 2.5 mg/dL (1.8-2.4); Potassium 4.9 mmol/L (3.5-5.1); Prealbumin 24.1 mg/dL (20-40)
[2019-05-28] MEDS: SEVELAMER CARBONATE 800 MG TABLET PO SCH ×3 (08:20→16:46)
[2019-05-28] MEDS: MULTIVITAMINS,THERAPEUT 1 TAB PO SCH (08:21)
[2019-05-28] MEDS: CYANOCOBALAMIN 1,000 MCG TAB PO SCH (08:21)
[2019-05-28] MEDS: ACETAMINOPHEN 325 MG TABLET PO PRN ×2 (08:21→20:49)
[2019-05-28] MEDS: LORATADINE 10 MG TAB PO SCH (08:22)
[2019-05-28] MEDS: METOPROLOL XL 25 MG TAB PO SCH ×2 (08:23→20:49)
[2019-05-28] MEDS: FEBUXOSTAT 80 MG PO SCH (08:24)
[2019-05-28] MEDS: [UNRECOGNIZED DRUG - OTHER] PO SCH (08:24)
--- NOTE | 2019-05-28 10:33 | FAST ---
SHIFT START DATE/TIME: 05/28/2019 07:00 (CDT) SHIFT END DATE/TIME: 05/28/2019 19:00 (CDT) NAME CHELA RUBALCAVA DATE OF : 1935 DATE OF ADMISSION: 05/26/2019 13:40 (CDT) PHONE: AGE: 84 N# [id number] GENDER: Male ENCOUNTER PHYSICIAN: Dr. Gamal Lafleur M.D. ADMISSION DIAGNOSIS: - Orthopaedic Disorders 08 - Unilateral Hip Fracture (08.11) left hip fx. EATING: EATING - STEP 1: Does the patient complete the activity by him/herself with no assistance (physical, verbal/nonverbal cueing, setup/clean-up)? No. EATING - STEP 2: Does the patient need only setup/clean-up assistance from one helper? Yes. 1. [id number] ADMISSION PERFORMANCE: Setup or clean-up assistance CODE: 05 ORAL HYGIENE: ORAL HYGIENE - STEP 1: Does the patient complete the activity by him/herself with no assistance (physical, verbal/nonverbal cueing, setup/clean-up)? Yes. 1. [id number] ADMISSION PERFORMANCE: Independent CODE: 06 TOILETING HYGIENE: TOILETING HYGIENE - STEP 1: Does the patient complete the activity by him/herself with no assistance (physical, verbal/nonverbal cueing, setup/clean-up)? No. TOILETING HYGIENE - STEP 2: Does the patient need only setup/clean-up assistance from one helper? Yes. 1. [id number] ADMISSION PERFORMANCE: Setup or clean-up assistance CODE: 05 BATHING: Not assessed/no information CODE: - DRESSING - UPPER BODY: Not assessed/no information CODE: - DRESSING - LOWER BODY: DRESSING - LOWER BODY - STEP 1: Does the patient complete the activity by him/herself with no assistance (physical, verbal/nonverbal cueing, setup/clean-up)? No. DRESSING - LOWER BODY - STEP 2: Does the patient need only setup/clean-up assistance from one helper? No. DRESSING - LOWER BODY - STEP 3: Does the patient need only verbal/nonverbal cueing or touching/steadying/contact guard assistance fro m one helper? No. DRESSING - LOWER BODY - STEP 4: Does the patient need physical assistance - for example lifting or trunk support from one helper - wi th the helper providing less than half of the effort? Yes. 1. [id number] ADMISSION PERFORMANCE: Partial/moderate assistance CODE: 03 PUTTING ON/TAKING OFF FOOTWEAR: FOOTWEAR - STEP 1: Does the patient complete the activity by him/herself with no assistance (physical, verbal/nonverbal cueing, setup/clean-up)? No. FOOTWEAR - STEP 2: Does the patient need only setup/clean-up assistance from one helper? No. FOOTWEAR - STEP 3: Does the patient need only verbal/nonverbal cueing or touching/steadying/contact guard assistance fro m one helper? No. FOOTWEAR - STEP 4: Does the patient need physical assistance - for example lifting or trunk support from one helper - wi th the helper providing less than half of the effort? No. FOOTWEAR - STEP 5: Does the patient need physical assistance - for example lifting or trunk support from one helper - wi th the helper providing more than half of the effort? No. FOOTWEAR - STEP 6: Does the helper provide all of the effort? OR Is the assistance of two or more helpers required to co mplete the activity? Yes. 1. [id number] ADMISSION PERFORMANCE: Dependent CODE: 01 ROLL LEFT AND RIGHT: ROLL LEFT AND RIGHT - STEP 1: Does the patient complete the activity by him/herself with no assistance (physical, verbal/nonverbal cueing, setup/clean-up)? No. ROLL LEFT AND RIGHT - STEP 2: Does the patient need only setup/clean-up assistance from one helper? No. ROLL LEFT AND RIGHT - STEP 3: Does the patient need only verbal/nonverbal cueing or touching/steadying/contact guard assistance fro m one helper? Yes. 1. [id number] ADMISSION PERFORMANCE: Supervision or touching assistance CODE: 04 SIT TO LYING: SIT TO LYING - STEP 1: Does the patient complete the activity by him/herself with no assistance (physical, verbal/nonverbal cueing, setup/clean-up)? No. SIT TO LYING - STEP 2: Does the patient need only setup/clean-up assistance from one helper? No. SIT TO LYING - STEP 3: Does the patient need only verbal/nonverbal cueing or touching/steadying/contact guard assistance fro m one helper? Yes. 1. [id number] ADMISSION PERFORMANCE: Supervision or touching assistance CODE: 04 LYING TO SITTING: LYING TO SITTING ON SIDE OF BED - STEP 1: Does the patient complete the activity by him/herself with no assistance (physical, verbal/nonverbal cueing, setup/clean-up)? No. LYING TO SITTING ON SIDE OF BED - STEP 2: Does the patient need only setup/clean-up assistance from one helper? Yes. 1. [id number] ADMISSION PERFORMANCE: Setup or clean-up assistance CODE: 05 SIT TO STAND: SIT TO STAND - STEP 1: Does the patient complete the activity by him/herself with no assistance (physical, verbal/nonverbal cueing, setup/clean-up)? No. SIT TO STAND - STEP 2: Does the patient need only setup/clean-up assistance from one helper? No. SIT TO STAND - STEP 3: Does the patient need only verbal/nonverbal cueing or touching/steadying/contact guard assistance fro m one helper? Yes. 1. [id number] ADMISSION PERFORMANCE: Supervision or touching assistance CODE: 04 TRANSFERS: BED, CHAIR: CHAIR/[id number] TRANSFER - STEP 1: Does the patient complete the activity by him/herself with no assistance (physical, verbal/nonverbal cueing, setup/clean-up)? No. CHAIR/[id number] TRANSFER - STEP 2: Does the patient need only setup/clean-up assistance from one helper? No. CHAIR/[id number] TRANSFER - STEP 3: Does the patient need only verbal/nonverbal cueing or touching/steadying/contact guard assistance fro m one helper? Yes. 1. [id number] ADMISSION PERFORMANCE: Supervision or touching assistance CODE: 04 TRANSFER TOILET: TOILET TRANSFER - STEP 1: Does the patient complete the activity by him/herself with no assistance (physical, verbal/nonverbal cueing, setup/clean-up)? No. TOILET TRANSFER - STEP 2: Does the patient need only setup/clean-up assistance from one helper? No. TOILET TRANSFER - STEP 3: Does the patient need only verbal/nonverbal cueing or touching/steadying/contact guard assistance fro m one helper? Yes. 1. [id number] ADMISSION PERFORMANCE: Supervision or touching assistance CODE: 04 TRANSFERS: CAR: Not assessed/no information CODE: - WALK 10 FEET: Not assessed/no information CODE: - 1 STEP (CURB): Not assessed/no information CODE: - PICKING UP OBJECT: Not assessed/no information CODE: - DOES THE PATIENT USE A WHEELCHAIR/SCOOTER? Q1. DOES THE PATIENT USE A WHEELCHAIR/SCOOTER?: Yes CODE: 1 WHEEL 50 FEET WITH TWO TURNS: WHEEL 50 FEET WITH TWO TURNS - STEP 1: Does the patient complete the activity by him/herself with no assistance (physical, verbal/nonverbal cueing, setup/clean-up)? Yes. 1. [id number] ADMISSION PERFORMANCE: Independent CODE: 06 INDICATE THE TYPE OF WHEELCHAIR/SCOOTER USED: RR1. INDICATE THE TYPE OF WHEELCHAIR/SCOOTER USED.: Manual CODE: 1 WHEEL 150 FEET: WHEEL 150 FEET - STEP 1: Does the patient complete the activity by him/herself with no assistance (physical, verbal/nonverbal cueing, setup/clean-up)? Yes. 1. [id number] ADMISSION PERFORMANCE: Independent CODE: 06 INDICATE THE TYPE OF WHEELCHAIR/SCOOTER USED: CODE: EXPR BLADDER AND BOWEL: H350. BLADDER CONTINENCE (3-DAY ASSESSMENT PERIOD): Always continent (no documented incontinence) CODE: 0 H400. BOWEL CONTINENCE (3-DAY ASSESSMENT PERIOD): Always continent CODE: 0 SIGNATURE PANEL: The following modified sections: 1. [id number] Admission Performance, 1. [id number] Admission Performance, 1. [id number] Admission Performance, 1. CC8835g Admission Performance, 1. QT3388l Admission Performance, 1. WR9975e Admission Performance, 1. [id number] Admission Performance, 1. [id number] Admission Performance , 1. BP1384I Admission Performance, 1. [id number] Admission Performance, 1. BU1110P Admission Performanc e, 1. [id number] Admission Performance, 1. [id number] Admission Performance, 1. HT1400S Admission Performan ce, Q1. Does the patient use a wheelchair/scooter?, 1. [id number] Admission Performance, RR1. Indicate t he type of wheelchair/scooter used., 1. [id number] Admission Performance, Code, H350. Bladder Continence (3-day assessment period), H400. Bowel Continence (3-day assessment period) were [electronically] si gned by Lorene aL C.N.A. on SatMay 28 2019 10:32:34 T-0500 (Central Daylight Time)
[2019-05-28 13:29] LABS: Protime INR 1.64
--- NOTE | 2019-05-28 16:49 | FAST ---
ENCOUNTER DATE AND TIME: 05/28/2019 08:00 (CDT) NAME CHELA RUBALCAVA DATE OF : 1935 DATE OF ADMISSION: 05/26/2019 13:40 (CDT) PHONE: AGE: 84 N# [id number] GENDER: Male ENCOUNTER PHYSICIAN: Dr. Gamal Lafleur M.D. ADMISSION DIAGNOSIS: - Orthopaedic Disorders 08 - Unilateral Hip Fracture (03.29) left hip fx. ROLL LEFT AND RIGHT: ROLL LEFT AND RIGHT - STEP 1: Does the patient complete the activity by him/herself with no assistance (physical, verbal/nonverbal cueing, setup/clean-up)? No. ROLL LEFT AND RIGHT - STEP 2: Does the patient need only setup/clean-up assistance from one helper? No. ROLL LEFT AND RIGHT - STEP 3: Does the patient need only verbal/nonverbal cueing or touching/steadying/contact guard assistance fro m one helper? Yes. 1. [id number] ADMISSION PERFORMANCE: Supervision or touching assistance CODE: 04 SIT TO LYING: SIT TO LYING - STEP 1: Does the patient complete the activity by him/herself with no assistance (physical, verbal/nonverbal cueing, setup/clean-up)? No. SIT TO LYING - STEP 2: Does the patient need only setup/clean-up assistance from one helper? No. SIT TO LYING - STEP 3: Does the patient need only verbal/nonverbal cueing or touching/steadying/contact guard assistance fro m one helper? Yes. 1. [id number] ADMISSION PERFORMANCE: Supervision or touching assistance CODE: 04 LYING TO SITTING: LYING TO SITTING ON SIDE OF BED - STEP 1: Does the patient complete the activity by him/herself with no assistance (physical, verbal/nonverbal cueing, setup/clean-up)? No. LYING TO SITTING ON SIDE OF BED - STEP 2: Does the patient need only setup/clean-up assistance from one helper? No. LYING TO SITTING ON SIDE OF BED - STEP 3: Does the patient need only verbal/nonverbal cueing or touching/steadying/contact guard assistance fro m one helper? Yes. 1. [id number] ADMISSION PERFORMANCE: Supervision or touching assistance CODE: 04 SIT TO STAND: SIT TO STAND - STEP 1: Does the patient complete the activity by him/herself with no assistance (physical, verbal/nonverbal cueing, setup/clean-up)? No. SIT TO STAND - STEP 2: Does the patient need only setup/clean-up assistance from one helper? No. SIT TO STAND - STEP 3: Does the patient need only verbal/nonverbal cueing or touching/steadying/contact guard assistance fro m one helper? Yes. 1. [id number] ADMISSION PERFORMANCE: Supervision or touching assistance CODE: 04 TRANSFERS: BED, CHAIR: CHAIR/[id number] TRANSFER - STEP 1: Does the patient complete the activity by him/herself with no assistance (physical, verbal/nonverbal cueing, setup/clean-up)? No. CHAIR/[id number] TRANSFER - STEP 2: Does the patient need only setup/clean-up assistance from one helper? No. CHAIR/[id number]-[id number] TRANSFER - STEP 3: Does the patient need only verbal/nonverbal cueing or touching/steadying/contact guard assistance fro m one helper? Yes. 1. [id number] ADMISSION PERFORMANCE: Supervision or touching assistance CODE: 04 TRANSFER TOILET: TOILET TRANSFER - STEP 1: Does the patient complete the activity by him/herself with no assistance (physical, verbal/nonverbal cueing, setup/clean-up)? No. TOILET TRANSFER - STEP 2: Does the patient need only setup/clean-up assistance from one helper? No. TOILET TRANSFER - STEP 3: Does the patient need only verbal/nonverbal cueing or touching/steadying/contact guard assistance fro m one helper? Yes. 1. [id number] ADMISSION PERFORMANCE: Supervision or touching assistance CODE: 04 TRANSFERS: CAR: Not attempted due to environmental limitations (e.g., lack of equipment, weather constraints) CODE: 10 WALK 10 FEET: WALK 10 FEET - STEP 1: Does the patient complete the activity by him/herself with no assistance (physical, verbal/nonverbal cueing, setup/clean-up)? No. WALK 10 FEET - STEP 2: Does the patient need only setup/clean-up assistance from one helper? No. WALK 10 FEET - STEP 3: Does the patient need only verbal/nonverbal cueing or touching/steadying/contact guard assistance fro m one helper? Yes. 1. [id number] ADMISSION PERFORMANCE: Supervision or touching assistance CODE: 04 WALK 50 FEET: WALK 50 FEET - STEP 1: Does the patient complete the activity by him/herself with no assistance (physical, verbal/nonverbal cueing, setup/clean-up)? No. WALK 50 FEET - STEP 2: Does the patient need only setup/clean-up assistance from one helper? No. WALK 50 FEET - STEP 3: Does the patient need only verbal/nonverbal cueing or touching/steadying/contact guard assistance fro m one helper? Yes. 1. [id number] ADMISSION PERFORMANCE: Supervision or touching assistance CODE: 04 WALK 150 FEET: WALK 150 FEET - STEP 1: Does the patient complete the activity by him/herself with no assistance (physical, verbal/nonverbal cueing, setup/clean-up)? No. WALK 150 FEET - STEP 2: Does the patient need only setup/clean-up assistance from one helper? No. WALK 150 FEET - STEP 3: Does the patient need only verbal/nonverbal cueing or touching/steadying/contact guard assistance fro m one helper? Yes. 1. [id number] ADMISSION PERFORMANCE: Supervision or touching assistance CODE: 04 WALK 10 FEET UNEVEN: Not attempted due to medical condition or safety concerns CODE: 88 1 STEP (CURB): Patient refused CODE: 07 PICKING UP OBJECT: PICKING UP OBJECT - STEP 1: Does the patient complete the activity by him/herself with no assistance (physical, verbal/nonverbal cueing, setup/clean-up)? No. PICKING UP OBJECT - STEP 2: Does the patient need only setup/clean-up assistance from one helper? No. PICKING UP OBJECT - STEP 3: Does the patient need only verbal/nonverbal cueing or touching/steadying/contact guard assistance fro m one helper? Yes. 1. [id number] ADMISSION PERFORMANCE: Supervision or touching assistance CODE: 04 DOES THE PATIENT USE A WHEELCHAIR/SCOOTER? Q1. DOES THE PATIENT USE A WHEELCHAIR/SCOOTER?: Yes CODE: 1 WHEEL 50 FEET WITH TWO TURNS: WHEEL 50 FEET WITH TWO TURNS - STEP 1: Does the patient complete the activity by him/herself with no assistance (physical, verbal/nonverbal cueing, setup/clean-up)? Yes. 1. [id number] ADMISSION PERFORMANCE: Independent CODE: 06 INDICATE THE TYPE OF WHEELCHAIR/SCOOTER USED: RR1. INDICATE THE TYPE OF WHEELCHAIR/SCOOTER USED.: Manual CODE: 1 WHEEL 150 FEET: WHEEL 150 FEET - STEP 1: Does the patient complete the activity by him/herself with no assistance (physical, verbal/nonverbal cueing, setup/clean-up)? Yes. 1. [id number] ADMISSION PERFORMANCE: Independent CODE: 06 INDICATE THE TYPE OF WHEELCHAIR/SCOOTER USED: SS1. INDICATE THE TYPE OF WHEELCHAIR/SCOOTER USED.: Manual CODE: 1 BLADDER AND BOWEL: CODE: EXPR CODE: EXPR SIGNATURE PANEL: The following modified sections: 1. [id number] Admission Performance, 1. [id number] Admission Performance, 1. CS0411K Admission Performance, 1. CN7832B Admission Performance, 1. LS4573W Admission Performance, 1. TR5288F Admission Performance, 1. EU7362S Admission Performance, 1. RM8036H Admission Performance , 1. DF5215P Admission Performance, 1. [id number] Admission Performance, Q1. Does the patient use a whee lchair/scooter?, 1. [id number] Admission Performance, RR1. Indicate the type of wheelchair/scooter used. , 1. VY4586Q Admission Performance, Code, SS1. Indicate the type of wheelchair/scooter used. were [el ectronically] signed by Jose G Rosas PT on SatMay 28 2019 16:48:48 T-0500 ([place] Daylight mikaela)
--- NOTE | 2019-05-28 16:56 | FAST ---
ENCOUNTER DATE AND TIME: 05/27/2019 08:00 (CDT) NAME CHELA RUBALCAVA DATE OF : 1935 DATE OF ADMISSION: 05/26/2019 13:40 (CDT) PHONE: AGE: 84 N# [id number] GENDER: Male ENCOUNTER PHYSICIAN: Dr. Gamal Lafleur M.D. ADMISSION DIAGNOSIS: - Orthopaedic Disorders 08 - Unilateral Hip Fracture (08.11) left hip fx. EATING: EATING - STEP 1: Does the patient complete the activity by him/herself with no assistance (physical, verbal/nonverbal cueing, setup/clean-up)? Yes. 1. [id number] ADMISSION PERFORMANCE: Independent CODE: 06 ORAL HYGIENE: ORAL HYGIENE - STEP 1: Does the patient complete the activity by him/herself with no assistance (physical, verbal/nonverbal cueing, setup/clean-up)? Yes. 1. [id number] ADMISSION PERFORMANCE: Independent CODE: 06 TOILETING HYGIENE: Not assessed/no information CODE: - [id number] - COMMENTS: No need to perform task at time of assessment. BATHING: SHOWER/BATHE SELF - STEP 1: Does the patient complete the activity by him/herself with no assistance (physical, verbal/nonverbal cueing, setup/clean-up)? No. SHOWER/BATHE SELF - STEP 2: Does the patient need only setup/clean-up assistance from one helper? No. SHOWER/BATHE SELF - STEP 3: Does the patient need only verbal/nonverbal cueing or touching/steadying/contact guard assistance fro m one helper? No. SHOWER/BATHE SELF - STEP 4: Does the patient need physical assistance - for example lifting or trunk support from one helper - wi th the helper providing less than half of the effort? Yes. 1. [id number] ADMISSION PERFORMANCE: Partial/moderate assistance CODE: 03 DRESSING - UPPER BODY: DRESSING - UPPER BODY - STEP 1: Does the patient complete the activity by him/herself with no assistance (physical, verbal/nonverbal cueing, setup/clean-up)? No. DRESSING - UPPER BODY - STEP 2: Does the patient need only setup/clean-up assistance from one helper? Yes. 1. [id number] ADMISSION PERFORMANCE: Setup or clean-up assistance CODE: 05 DRESSING - LOWER BODY: DRESSING - LOWER BODY - STEP 1: Does the patient complete the activity by him/herself with no assistance (physical, verbal/nonverbal cueing, setup/clean-up)? No. DRESSING - LOWER BODY - STEP 2: Does the patient need only setup/clean-up assistance from one helper? No. DRESSING - LOWER BODY - STEP 3: Does the patient need only verbal/nonverbal cueing or touching/steadying/contact guard assistance fro m one helper? No. DRESSING - LOWER BODY - STEP 4: Does the patient need physical assistance - for example lifting or trunk support from one helper - wi th the helper providing less than half of the effort? No. DRESSING - LOWER BODY - STEP 5: Does the patient need physical assistance - for example lifting or trunk support from one helper - wi th the helper providing more than half of the effort? No. DRESSING - LOWER BODY - STEP 6: Does the helper provide all of the effort? OR Is the assistance of two or more helpers required to co mplete the activity? Yes. 1. [id number] ADMISSION PERFORMANCE: Dependent CODE: 01 PUTTING ON/TAKING OFF FOOTWEAR: FOOTWEAR - STEP 1: Does the patient complete the activity by him/herself with no assistance (physical, verbal/nonverbal cueing, setup/clean-up)? No. FOOTWEAR - STEP 2: Does the patient need only setup/clean-up assistance from one helper? No. FOOTWEAR - STEP 3: Does the patient need only verbal/nonverbal cueing or touching/steadying/contact guard assistance fro m one helper? No. FOOTWEAR - STEP 4: Does the patient need physical assistance - for example lifting or trunk support from one helper - wi th the helper providing less than half of the effort? No. FOOTWEAR - STEP 5: Does the patient need physical assistance - for example lifting or trunk support from one helper - wi th the helper providing more than half of the effort? No. FOOTWEAR - STEP 6: Does the helper provide all of the effort? OR Is the assistance of two or more helpers required to co mplete the activity? Yes. 1. [id number] ADMISSION PERFORMANCE: Dependent CODE: 01 DOES THE PATIENT USE A WHEELCHAIR/SCOOTER? CODE: EXPR INDICATE THE TYPE OF WHEELCHAIR/SCOOTER USED: CODE: EXPR INDICATE THE TYPE OF WHEELCHAIR/SCOOTER USED: CODE: EXPR BLADDER AND BOWEL: CODE: EXPR CODE: EXPR SIGNATURE PANEL: The following modified sections: 1. [id number] Admission Performance, 1. [id number] Admission Performance, [id number] - Comments:, 1. [id number] Admission Performance, 1. [id number] Admission Performance, 1. [id number] A dmission Performance, 1. [id number] Admission Performance, 1. [id number] Admission Performance, 1. [id number] Admission Performance, 1. [id number] Admission Performance were [electronically] signed by Chasity mosher OT on SatMay 28 2019 16:55:42 T-0500 (Central Daylight Time)
--- NOTE | 2019-05-28 17:00 | FAST ---
ENCOUNTER DATE AND TIME: 05/28/2019 08:00 (CDT) NAME CHELA RUBALCAVA DATE OF : 1935 DATE OF ADMISSION: 05/26/2019 13:40 (CDT) PHONE: AGE: 84 N# [id number] GENDER: Male ENCOUNTER PHYSICIAN: Dr. Gamal Lafleur M.D. ADMISSION DIAGNOSIS: - Orthopaedic Disorders 08 - Unilateral Hip Fracture (08.11) left hip fx. EATING: EATING - STEP 1: Does the patient complete the activity by him/herself with no assistance (physical, verbal/nonverbal cueing, setup/clean-up)? Yes. 1. [id number] ADMISSION PERFORMANCE: Independent CODE: 06 ORAL HYGIENE: ORAL HYGIENE - STEP 1: Does the patient complete the activity by him/herself with no assistance (physical, verbal/nonverbal cueing, setup/clean-up)? Yes. 1. [id number] ADMISSION PERFORMANCE: Independent CODE: 06 TOILETING HYGIENE: Not assessed/no information CODE: - [id number] - COMMENTS: No needs for toileting task at time of assessment. BATHING: Not assessed/no information SHOWER/BATHE SELF - STEP 1: Does the patient complete the activity by him/herself with no assistance (physical, verbal/nonverbal cueing, setup/clean-up)? No. CODE: - DRESSING - UPPER BODY: Not assessed/no information CODE: - DRESSING - LOWER BODY: Not assessed/no information CODE: - PUTTING ON/TAKING OFF FOOTWEAR: Not assessed/no information CODE: - DOES THE PATIENT USE A WHEELCHAIR/SCOOTER? CODE: EXPR INDICATE THE TYPE OF WHEELCHAIR/SCOOTER USED: CODE: EXPR INDICATE THE TYPE OF WHEELCHAIR/SCOOTER USED: CODE: EXPR BLADDER AND BOWEL: CODE: EXPR CODE: EXPR SIGNATURE PANEL: The following modified sections: 1. [id number] Admission Performance, 1. [id number] Admission Performance, [id number] - Comments:, [id number] - Comments:, [id number] - Comments:, [id number] - Comments: were [electronical ly] signed by Chasity Bermeo OT on SatMay 28 2019 16:59:19 T-0500 (Central Daylight Time)
--- NOTE | 2019-05-28 17:14 | R.PN ---
ENCOUNTER DATE AND TIME: 05/28/2019 17:09 (CDT) NAME CHELA RUBALCAVA DATE OF : 1935 DATE OF ADMISSION: 05/26/2019 13:40 (CDT) left hip fxCHIEF COMPLAINT: Left hip fracture SUBJECTIVE: Pt denied any depression. Pt denied any Shortness of Breath. He is making good progress with physical and occupational therapy. His blood work is stable. Pain is well managed. VITAL SIGNS Temperature: 98.3 F SBP/DBP: 134/64 Pulse: 68 Resp: 16 MEDICATION ALLERGIES: ADHESIVE TAPE codeine Penicillin ENVIRONMENTAL ALLERGIES: - Substance Allergies None Known - Other Allergies None Known NURSING: - Shower allowing shower - Skin care per protocol PRECAUTIONS: - Anterior Hip Precaution No abduction No active extension No adduction across midline No external rotation No hip flexion >90 degrees No internal rotation - Weight Bearing Precaution WBAT left LE ACTIVITIES OOB only with supervision THERAPIES: - Dietary and Nutrition Adequate Nutrition. Nutritional Education. Nutritional Supplements. PHYSICAL EXAM - Gen Alert and awake Lying in bed No apparent distress Oriented to: person, time, and place - Skin No breakdown No abnormalities - Eyes No abnormalities - ENMT No abnormalities - Neck No abnormalities - CVS RRR - Chest No abnormalities - Abd Soft - GI nondistended Deferred - No abnormalities - Ext Mild left lower extremity edema. - MSK 4+/5 weakness in left lower extremity - Neuro 4/5 strength left lower extremity. - Psych No abnormalities ASSESSMENT: Pt. is a 84 yo Right-handed white male.On 02/18/2019 he was admitted to [facility] with diagnosis left hip fx.His impairment category is Orthopaedic Disorders 08 - Unilateral Hip Fracture (08.11).Pre-mo rbidly, Pt. was independent/mod-I in Self-Care, Sphincter Control, Transfers Control, Locomotion, Com munication, and Social Cognition; and he had good Sphincter Control.Currently, he has deficits of Meli f-Care, Transfers Control, Locomotion, Endurance, Balance, and Safety Awareness.Pt. is now referred t [facility] for acute in-patient rehabilitation in order to maximize patient' s functional independence in activities of daily living, strength, ROM, and mobility.- Rehab Goal Patient has realistic goal of being discharged at assistance level 6-Gisselle to reside at Home with Fam connie/Relatives. MDM/PLAN: - Physical Therapy Decreased range of motion - to improve, our physical therapists will perform initial evaluation of p t's status upon admission and devise an individualized program for increasing patient's Range of [place]dal[place] on. Gait dysfunction - to improve, our physical therapists will perform initial evaluation of pt's statu s upon admission and devise an individualized program for Gait Training, and Wheel Chair mobility Inability to transfer - to improve, our physical therapists will perform initial evaluation of pt's status upon admission and devise an individualized program for Bed mobility Need for home safety evaluation - to improve, our physical therapists will perform initial evaluatio n of pt's status upon admission and devise an individualized program for Home Evaluation Need in caregiver upon discharge - to improve, our physical therapists will perform initial evaluati on of pt's status upon admission and devise an individualized program for Caregiver Training Edema - to improve, our physical therapists will perform initial evaluation of pt's status upon admis yary and devise an individualized program for Elevation Training, and Lymphedema Therapy New precaution - to improve, our physical therapists will perform initial evaluation of pt's status upon admission and devise an individualized program for Patient precaution education Poor balance - to improve, our physical therapists will perform initial evaluation of pt's status up on admission and devise an individualized program for Balance Training Poor endurance - to improve, our physical therapists will perform initial evaluation of pt's status upon admission and devise an individualized program for Endurance Training Weakness - to improve, our physical therapists will perform initial evaluation of pt's status upon a dmission and devise an individualized program for Aquatic Therapy, Neuromuscular Reeducation, and Str engthening Achieving independence - to improve, our physical therapists will perform initial evaluation of pt's status upon admission and devise an individualized program for Community Reintegration Activities - Occupational Therapy ADL deficits - to improve, our occupation therapists will perform initial evaluation of pt's status upon admission and devise an individualized program for Bathing, Bed mobility, Community Reintegratio n, Cooking, Dressing, Eating, Fine Motor Skills, Grooming, Homemaking, Kitchen Mobility, Laundry, Pat ient Education, Safety Awareness, Splinting - Positioning, Transfers(Toilet, Tub, Shower), and Wheel Chair Management Need for senior care manager - to improve, our occupation therapists will perform initial evaluation of pt's status upon admission and devise an individualized program for Caregiver Training Weakness - to improve, our occupation therapists will perform initial evaluation of pt's status upon admission and devise an individualized program for Aquatic Therapy, Balance, Endurance, UE ROM, and UE strengthening - Other See attached MAR (Medication Administration Record) - Anterior Hip Precaution No abduction No active extension No adduction across midline No external rotation No hip flexion >90 degrees No internal rotation - Diet - Liquid Texture Continue Regular - Tube Feed Continue N/A - Diet Type Continue Regular - Posterior Hip Precaution No adduction across midline No external rotation No hip flexion >90 degrees No internal rotation No wheel chair propulsion - Weight Bearing Precaution WBAT left LE - Skin care per protocol - Diet - Solid Texture Continue Regular - Shower allowing shower FUNCTIONAL STATUS: UPDATED AT WEEKLY TEAM CONFERENCE - Bladder Same accident frequency: 7-Ind - No accidents in the past 7 days - Bowel Same accident frequency: 7-Ind - No accidents in the past 7 days - Walking Same score based on distance walked: 2(50-149ft) - Wheelchair Same score based on distance traveled: 1(<=50ft) FUNCTIONAL STATUS: - Self-Care A. Eating sup B. Grooming sup C. Bathing modA D. Dressing - Upper sup E. Dressing - Lower Levi F. Toileting Levi - Sphincter Control G: Bladder control Ind H: Bowel control Ind - Transfers Control I. Bed/Chair/Wheelchair modA J. Toilet modA K. Tub/Shower modA - Locomotion L. Walk/Wheelchair (C) modA L. Walk/Wheelchair (W) ADNO M. Stairs ADNO - Communication N. Comprehension (B) Gisselle O. Expression (B) Gisselle - Social Cognition P. Social Interaction Gisselle Q. Problem Solving Gisselle R. Memory Gisselle - Endurance Poor - Balance Poor - Safety Awareness Fair QI SCORES:: - Self-Care A. Eating 05-Setup or clean-up assistance B. Oral hygiene 05-Setup or clean-up assistance C. Toileting hygiene 04-Supervision or touching assistance E. Shower/bathe self 03-Partial/moderate assistance F. Upper body dressing 05-Setup or clean-up assistance G. Lower body dressing 03-Partial/moderate assistance H. Putting on/taking off footwear 02-Substantial/maximal assistance - Mobility A. Roll left and right 03-Partial/moderate assistance B. Sit to lying 03-Partial/moderate assistance C. Lying to sitting on side of bed 03-Partial/moderate assistance D. Sit to stand 03-Partial/moderate assistance E. Chair/[id number] transfer 03-Partial/moderate assistance F. Toilet transfer 03-Partial/moderate assistance G. Car transfer 88-Not attempted due to medical condition or safety concerns I. Walk 10 feet 03-Partial/moderate assistance J. Walk 50 feet with two turns 03-Partial/moderate assistance K. Walk 150 feet 88-Not attempted due to medical condition or safety concerns L. Walking 10 feet on uneven surfaces 88-Not attempted due to medical condition or safety concerns M. 1 step (curb) 88-Not attempted due to medical condition or safety concerns N. 4 steps 88-Not attempted due to medical condition or safety concerns O. 12 steps 88-Not attempted due to medical condition or safety concerns P. Picking up object 88-Not attempted due to medical condition or safety concerns R. Wheel 50 feet with two turns 88-Not attempted due to medical condition or safety concerns S. Wheel 150 feet 88-Not attempted due to medical condition or safety concerns - Bladder and Bowel Bladder continence 0-Always continent Bowel continence 0-Always continent CURRENT FUNC. DEFICITS: Self-Care, Transfers Control, Locomotion, Endurance, Balance, and Safety Awareness SIGNATURE PANEL: (CDT)
--- NOTE | 2019-05-28 19:23 | P.PN ---
Date of Service: 05/28/19 Vital Signs Temp Pulse Resp BP Pulse Ox 97.8 F 62 20 175/69 H 92 05/28/19 06:40 05/28/19 08:23 05/28/19 06:40 05/28/19 08:23 05/28/19 06:40 Medications Acetaminophen (Tylenol -Tablet) 650 mg PO DAILY PRN PRN Reason: Pain scale 5-7 (Moderate) Stop: 06/26/19 08:01 Last Admin: 05/28/19 08:21 Dose: 650 mg Cyanocobalamin (Vitamin B-12) 2,000 mcg PO DAILY [facility] Stop: 06/26/19 08:01 Last Admin: 05/28/19 08:21 Dose: 2,000 mcg Diphenhydramine HCl (Benadryl Tab/Cap) 50 mg PO Q6H PRN PRN Reason: ITCHING Stop: 06/25/19 15:07 Docusate Sodium (Colace Cap) 100 mg PO BEDTIME BASSAM Stop: 06/25/19 21:01 Last Admin: 05/27/19 19:23 Dose: 100 mg Doxazosin Mesylate (Cardura) 2 mg PO BEDTIME PRN PRN Reason: FOR SBP > 170 Stop: 06/25/19 21:01 Ergocalciferol (Drisdol) 50,000 unit PO Cristina@0800 [facility] Stop: 06/30/19 08:01 Heparin Sodium (Porcine) (Heparin 1,000 Units/Ml) 2,000 unit IV EVERY HD [facility] Stop: 06/05/19 15:01 Heparin Sodium (Porcine) (Heparin 1,000 Units/Ml) 6,000 unit IV EVERY HD PRN PRN Reason: FLUSH AFTER EACH USE Home Med (I-Caps With Lutein-[place] 3) 1 cap PO DAILY [facility] Stop: 06/26/19 08:01 Last Admin: 05/28/19 08:24 Dose: 1 cap Home Med (Lysine 500mg) 1 tab PO DAILY [facility] Stop: 06/26/19 08:01 Last Admin: 05/28/19 08:23 Dose: 1 tab Home Med (Febuxostat 80mg) 1 tab PO DAILY [facility] Stop: 06/26/19 08:01 Last Admin: 05/28/19 08:24 Dose: 1 tab Albumin Human (Albumin 25%) 50 mls @ 100 mls/hr IV EVERY HD [facility] Stop: 06/25/19 22:01 Loratadine (Claritin) 10 mg PO DAILY [facility] Stop: 06/26/19 08:01 Last Admin: 05/28/19 08:22 Dose: 10 mg Mannitol (Mannitol 12.5 Gm/50 Ml Vial) 12.5 gm IV EVERY HD PRN PRN Reason: Titrate to SBP (MUST DEFINE) Stop: 06/25/19 21:22 Metoprolol Succinate (Toprol Xl) 25 mg PO BID [facility] Stop: 06/25/19 20:01 Last Admin: 05/28/19 08:23 Dose: 25 mg Polyethylene Glycol (Glycolax) 17 gm PO DAILY PRN PRN Reason: CONSTIPATION Stop: 06/25/19 15:51 Ranitidine HCl (Zantac) 150 mg PO BEDTIME [facility] Stop: 06/25/19 21:01 Last Admin: 05/27/19 19:23 Dose: 150 mg Sevelamer Carbonate (Renvela) 1,600 mg PO TIDWM [facility] Stop: 06/25/19 17:01 Last Admin: 05/28/19 16:46 Dose: 1,600 mg Vitamin B Complex/Vit C/Folic Acid (Nephro-Tenzin) 1 tab PO DAILY [facility] Stop: 06/26/19 08:01 Last Admin: 05/28/19 08:21 Dose: 1 tab Warfarin Sodium (Coumadin) 2.5 mg PO BEDTIME [facility] Stop: 06/25/19 21:01 Last Admin: 05/27/19 19:23 Dose: 2.5 mg Warfarin Sodium (Coumadin) 2 mg PO BEDTIME [facility] Stop: 06/25/19 21:01 Last Admin: 05/27/19 19:23 Dose: 2 mg Lab Results (last 24 hrs) 05/28/19 13:08: PT 19.0 H, INR 1.64 05/28/19 05:50: Sodium 142, Potassium 4.9, Chloride 110 H, Carbon Dioxide 22, BUN 35 H D, Creatinine 7.12 H* D, Estimated GFR 7 L, Glucose 84, Calcium 9.6, Magnesium 2.5 H, Albumin 3.3 L, Prealbumin 24.1 05/28/19 05:50: WBC 7.4, RBC 3.40 L, Hgb 10.8 L, Hct 32.2 L, MCV 94.8, MCH 31.8 , MCHC 33.6, RDW 16.3 H, Plt Count 178, MPV 8.7 D, Neutrophils % 62.6, Lymphocytes % 21.7, Monocytes % 10.7, Eosinophils % 4.2, Basophils % 0.8, Absolute Neutrophils 4.7, Absolute Lymphocytes 1.6, Absolute Monocytes 0.8, Absolute Eosinophils 0.3, Absolute Basophils 0.1 Microbiology Results 05/27/19 01:15 Clean Catch Urine [place] Count - Preliminary <10,000 CFU/ML. 05/27/19 01:15 Clean Catch Urine - Preliminary No growth. Assessment/ Plan: Nephrology. Feeling better and stronger today. CPS improved without CP or SOB. No acute events overnight. Vitals, medications, blood work and imaging reviewed in the chart. General: In no apparent distress, Oriented x3, Cooperative HEENT: Atraumatic Neck: Supple Respiratory: Clear to auscultation bilaterally Cardiovascular: Regular rate/rhythm, No rubs, Edema Gastrointestinal: Soft and benign, No guarding Musculoskeletal: No clubbing, No contractures Integumentary: No rashes, Other (LE Venous Stasis) Neurological: Normal speech Blood work reviewed in the chart. BUN 79; Cr 9.95; Hgb 9.6 Imagings Data: EXAM DESCRIPTION: MRI - Lumbar Spine Wo Con- 05/25/2019 7:19 pm CLINICAL HISTORY: Acute BL LE Weakness. Hx RCC. COMPARISON: Abdomen Pelvis W/Wo Contrast dated 03/10/2018 FINDINGS: Vertebral body heights are within normal limits. Blooming artifact is present the anterior aspect of the lumbar. No aggressive marrow pattern is observed. No fracture is suspected. The conus medullaris terminates at a normal level. No thickening of the cauda equina or clumping of nerve roots seen. L1-2 level: No significant findings. L2-3 level: Mild posterior disc bulge with mild facet and ligamentum flavum hypertrophy. Mild narrowing of the anterior inferior aspects of both exit foramina. L3-4 level: Asymmetric posterior disc bulge to the right is seen with moderate facet hypertrophy, greater on the right. Mild narrowing of the right lateral recess and exit foramina. L4-5 level: Mild posterior disc bulge with mild facet and ligamentum flavum hypertrophy. No canal or foraminal stenosis. L5-S1 level: Mild posterior disc bulge with mild facet and ligamentum hypertrophy. No canal or foraminal stenosis. Significant facet hypertrophy is present a small external synovial cyst on the right measuring 6 mm. 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 No severe canal or foraminal stenosis at any level is seen. Conclusions/Impression: A/ Severe LE weakness of unclear etiology. Mild progressive dementia. ESRD on HD. Hyperkalemia. HTN with CKD/ CHF. Diastolic CHF, chronic. Anemia in CKD. PRASANNA/ Secondary HyperPTH. Bradycardia on metoprolol. P/ Continue current POC and medications. Continue HD TIW. Monitor Bradycardia. Follow up cultures. No NSAIDs. AM labs. Daily weight. PT as tolerated.
[2019-05-28] MEDS: RANITIDINE 150 MG TABLET PO SCH (20:48)
[2019-05-28] MEDS: WARFARIN SODIUM 2.5 MG TAB PO SCH (20:48)
[2019-05-28] MEDS: WARFARIN SODIUM 2 MG TAB PO SCH (20:49)
[2019-05-28] MEDS: MELATONIN 3 MG TABLET PO SCH (20:49)
[2019-05-28] MEDS: DOCUSATE NA 100 MG CAP PO SCH (20:49)
[2019-05-29 06:23] LABS: Protime INR 1.6
[2019-05-29] MEDS: SEVELAMER CARBONATE 800 MG TABLET PO SCH ×3 (08:11→16:50)
[2019-05-29] MEDS: METOPROLOL XL 25 MG TAB PO SCH ×2 (08:12→23:10)
[2019-05-29] MEDS: CYANOCOBALAMIN 1,000 MCG TAB PO SCH (08:12)
[2019-05-29] MEDS: LORATADINE 10 MG TAB PO SCH (08:12)
[2019-05-29] MEDS: FEBUXOSTAT 80 MG PO SCH (08:12)
[2019-05-29] MEDS: MULTIVITAMINS,THERAPEUT 1 TAB PO SCH (08:12)
[2019-05-29] MEDS: [UNRECOGNIZED DRUG - OTHER] PO SCH (08:13)
--- NOTE | 2019-05-29 09:57 | P.RH.PN ---
Estimated Length of Stay: 10 Expected Discharge Date: 06/04/19 Discharge Disposition Plan: Home Family Support: Yes Custodial Goal: Mobility, Transfers, Self Care Vital Signs: Last Vital Signs Temp 98.7 F 05/28/19 19:15 Pulse 76 05/29/19 08:12 Resp 18 05/28/19 19:15 BP 189/85 H 05/29/19 08:12 Pulse Ox 97 05/28/19 19:15 Laboratory: Laboratory Last Values WBC 7.4 K/uL (4.3-10.9) 05/28/19 05:50 RBC 3.40 M/uL (4.33-5.43) L 05/28/19 05:50 Hgb 10.8 g/dL (13.6-17.9) L 05/28/19 05:50 Hct 32.2 % (39.6-49.0) L 05/28/19 05:50 MCV 94.8 fL (80-100) 05/28/19 05:50 MCH 31.8 pg (27.0-35.0) 05/28/19 05:50 MCHC 33.6 g/dL (32.0-36.0) 05/28/19 05:50 RDW 16.3 % (12.1-15.2) H 05/28/19 05:50 Plt Count 178 K/uL (152-406) 05/28/19 05:50 MPV 8.7 fL (7.6-11.3) D 05/28/19 05:50 Neutrophils % 62.6 % (41.7-73.7) 05/28/19 05:50 Lymphocytes % 21.7 % (15.3-44.8) 05/28/19 05:50 Monocytes % 10.7 % (3.3-12.3) 05/28/19 05:50 Eosinophils % 4.2 % (0-4.4) 05/28/19 05:50 Basophils % 0.8 % (0-1.3) 05/28/19 05:50 Absolute Neutrophils 4.7 K/uL (1.8-8.0) 05/28/19 05:50 Absolute Lymphocytes 1.6 K/uL (0.7-4.9) 05/28/19 05:50 Absolute Monocytes 0.8 K/uL (0.1-1.3) 05/28/19 05:50 Absolute Eosinophils 0.3 K/uL (0-0.5) 05/28/19 05:50 Absolute Basophils 0.1 K/uL (0-0.5) 05/28/19 05:50 PT 18.5 SECONDS (9.5-12.5) H 05/29/19 05:53 INR 1.60 05/29/19 05:53 Sodium 142 mmol/L (136-145) 05/28/19 05:50 Potassium 4.9 mmol/L (3.5-5.1) 05/28/19 05:50 Chloride 110 mmol/L (98-107) H 05/28/19 05:50 Carbon Dioxide 22 mmol/L (21-32) 05/28/19 05:50 BUN 35 mg/dL (7-18) H D 05/28/19 05:50 Creatinine 7.12 mg/dL (0.55-1.3) H* D 05/28/19 05:50 Estimated GFR 7 mL/min (=/>90) L 05/28/19 05:50 Glucose 84 mg/dL (74-106) 05/28/19 05:50 Calcium 9.6 mg/dL (8.5-10.1) 05/28/19 05:50 Magnesium 2.5 mg/dL (1.8-2.4) H 05/28/19 05:50 Albumin 3.3 g/dL (3.4-5.0) L 05/28/19 05:50 Prealbumin 24.1 mg/dL (20-40) 05/28/19 05:50 Urine Color Yellow 05/27/19 01:15 Urine Appearance Clear 05/27/19 01:15 Urine pH 6.5 (5.0-7.0) 05/27/19 01:15 Ur Specific [place] 1.020 (1.005-1.030) 05/27/19 01:15 Urine Ketones Negative (NEG) 05/27/19 01:15 Urine Blood Trace (NEG) H 05/27/19 01:15 Urine Nitrite Negative (NEG) 05/27/19 01:15 Urine Bilirubin Negative (NEG) 05/27/19 01:15 Urine Urobilinogen 0.2 mg/dL (0.2-1.0) 05/27/19 01:15 Ur Leukocyte Esterase Negative (NEG) 05/27/19 01:15 Urine RBC <5 /HPF (NONE SEEN) 05/27/19 01:15 Urine WBC <5 /HPF (<5) 05/27/19 01:15 Ur Squamous Epith Cells <5 /HPF (NONE SEEN) 05/27/19 01:15 Ur Urothelial Cells <5 /HPF (NONE SEEN) 05/27/19 01:15 Urine Bacteria <20 /HPF (NONE SEEN) 05/27/19 01:15 Urine Culture Reflexed Not needed 05/27/19 01:15 Urine Glucose Trace (NEG) 05/27/19 01:15 Urine Total Protein 3+ (NEG) H 05/27/19 01:15 Weight: 260 lb Wound Present: No Closed Surgical Incision Present: No Negative Pressure Wound Therapy Present: No Physician Update: His INR is low at 1.64. Will give 6 mg of coumadin today and then 4 mg daily. He is walking 250' with standby assistance doing well. His verbal language skill and recall are mildly impaired. Those factors are aggravated by poor hearing. Medical Issues: Patient is always continent with bladder and bowel. Pain Issues: Tylenol 650mg Daily PRN PO Functional Improvement: pt has demonstrated a willingness to participate in therapy sessions. pt is improving his tolerance and stability during ambulation. Functional Improvement Occupational Therapy: Pt can benifit with further therapy to address pt's overall weakness in the UE/LE's by increasing pt's UB strength and ROM for adl tasks. Cont to educate and train pt on energy conservation techniques and training for using A/E as needed due to pt's hip precautions. Cont to increase pt's static standing balance for functional transfers and for clothing and bathing tasks and pt's overall endurance for adl' s and activity tolerance with all tasks. Cont with the POC and the goals by the supervising OTR Speech Therapy Update: Patient presents with mild cognitive-linguistic deficits particularly in the areas of language and STM. Patient requires occasional repetition to comprehend spoken language. Patient exhibits word-finding difficulties for simple verbs/nouns. He exhibits a mild processing delay. Patient has difficulty recalling and following hip precautions. He requires intermittent supervision for safety and memory. 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 Please see the Rehabilitation Signature page for all necessary signatures.
[2019-05-29] MEDS ORDERED: LORAZEPAM 0.5 MG TABLET PO ONE (14:30)
--- NOTE | 2019-05-29 14:41 | FAST ---
ENCOUNTER DATE AND TIME: 05/29/2019 08:00 (CDT) NAME CHELA RUBALCAVA DATE OF : 1935 DATE OF ADMISSION: 05/26/2019 13:40 (CDT) PHONE: AGE: 84 N# [id number] GENDER: Male ENCOUNTER PHYSICIAN: Dr. Gamal Lafleur M.D. ADMISSION DIAGNOSIS: - Orthopaedic Disorders 08 - Unilateral Hip Fracture (.) left hip fx. EATING: Not assessed/no information CODE: - ORAL HYGIENE: ORAL HYGIENE - STEP 1: Does the patient complete the activity by him/herself with no assistance (physical, verbal/nonverbal cueing, setup/clean-up)? Yes. 1. [id number] ADMISSION PERFORMANCE: Independent CODE: 06 TOILETING HYGIENE: Not assessed/no information CODE: - BATHING: SHOWER/BATHE SELF - STEP 1: Does the patient complete the activity by him/herself with no assistance (physical, verbal/nonverbal cueing, setup/clean-up)? No. SHOWER/BATHE SELF - STEP 2: Does the patient need only setup/clean-up assistance from one helper? No. SHOWER/BATHE SELF - STEP 3: Does the patient need only verbal/nonverbal cueing or touching/steadying/contact guard assistance fro m one helper? Yes. 1. [id number] ADMISSION PERFORMANCE: Supervision or touching assistance CODE: 04 DRESSING - UPPER BODY: DRESSING - UPPER BODY - STEP 1: Does the patient complete the activity by him/herself with no assistance (physical, verbal/nonverbal cueing, setup/clean-up)? Yes. 1. [id number] ADMISSION PERFORMANCE: Independent CODE: 06 DRESSING - LOWER BODY: DRESSING - LOWER BODY - STEP 1: Does the patient complete the activity by him/herself with no assistance (physical, verbal/nonverbal cueing, setup/clean-up)? No. DRESSING - LOWER BODY - STEP 2: Does the patient need only setup/clean-up assistance from one helper? No. DRESSING - LOWER BODY - STEP 3: Does the patient need only verbal/nonverbal cueing or touching/steadying/contact guard assistance fro m one helper? Yes. 1. [id number] ADMISSION PERFORMANCE: Supervision or touching assistance CODE: 04 PUTTING ON/TAKING OFF FOOTWEAR: FOOTWEAR - STEP 1: Does the patient complete the activity by him/herself with no assistance (physical, verbal/nonverbal cueing, setup/clean-up)? No. FOOTWEAR - STEP 2: Does the patient need only setup/clean-up assistance from one helper? No. FOOTWEAR - STEP 3: Does the patient need only verbal/nonverbal cueing or touching/steadying/contact guard assistance fro m one helper? No. FOOTWEAR - STEP 4: Does the patient need physical assistance - for example lifting or trunk support from one helper - wi th the helper providing less than half of the effort? Yes. 1. [id number] ADMISSION PERFORMANCE: Partial/moderate assistance CODE: 03 DOES THE PATIENT USE A WHEELCHAIR/SCOOTER? CODE: EXPR INDICATE THE TYPE OF WHEELCHAIR/SCOOTER USED: CODE: EXPR INDICATE THE TYPE OF WHEELCHAIR/SCOOTER USED: CODE: EXPR BLADDER AND BOWEL: CODE: EXPR CODE: EXPR SIGNATURE PANEL: The following modified sections: 1. [id number] Admission Performance, 1. [id number] Admission Performance, 1. [id number] Admission Performance, 1. [id number] Admission Performance, 1. [id number] Admission Performance were [electronically] signed by EDITH Cox on SatMay 29 2019 14:40:30 GMT-0500 (Central Daylight Time)
--- NOTE | 2019-05-29 15:56 | RAD REPORT ---
EXAM DESCRIPTION: MRI - Brain Wo Cont - 05/29/2019 3:32 pm CLINICAL HISTORY: R/O stroke, stroke-like symptoms, bilateral leg weakness COMPARISON: CT head May 22 TECHNIQUE: Sagittal T1-weighted images were obtained along with axial PD, heavily T2-weighted and T2 -FLAIR images. Axial DWI and ADC mapping sequences were also obtained along with coronal heavily T2-w eighted images. FINDINGS: No intracranial hemorrhage, mass or acute infarction. There is no edema or shift of midlin e structures. No extra-axial fluid collections. Shrestha-matter/white matter junction is preserved. Signa l voids are seen as a normal finding in the major intracranial vessels. Chronic ischemic changes are minimal for age. Atrophy changes are [id number]. Ventricles are out of proportion to the amount of volume loss. No acute transependymal migration of CSF seen. Correlation is needed with any clinic al findings that support normal pressure hydrocephalus. No globe or orbital content abnormality seen. Mastoid air cells and paranasal sinuses are clear. Exam has motion degradation limitation. IMPRESSION: No acute infarction changes. No hemorrhage, mass or acute intracranial finding. Atrophy with minimal chronic ischemic change. Ventricular size is out of proportion to the amount of volume loss. Correlation is needed with any cl inical findings or history of normal pressure hydrocephalus.
[2019-05-29] MEDS ORDERED: WARFARIN SODIUM 6 MG TAB PO ONE (17:00)
--- NOTE | 2019-05-29 21:34 | P.PN ---
Date of Service: 05/29/19 Vital Signs Temp Pulse Resp BP Pulse Ox 98.2 F 84 18 175/59 H 92 05/29/19 20:26 05/29/19 20:26 05/29/19 20:26 05/29/19 20:26 05/29/19 20:26 Medications Acetaminophen (Tylenol -Tablet) 650 mg PO DAILY PRN PRN Reason: Pain scale 5-7 (Moderate) Stop: 06/26/19 08:01 Last Admin: 05/28/19 20:49 Dose: 650 mg Cyanocobalamin (Vitamin B-12) 2,000 mcg PO DAILY [facility] Stop: 06/26/19 08:01 Last Admin: 05/29/19 08:12 Dose: 2,000 mcg Diphenhydramine HCl (Benadryl Tab/Cap) 50 mg PO Q6H PRN PRN Reason: ITCHING Stop: 06/25/19 15:07 Docusate Sodium (Colace Cap) 100 mg PO BEDTIME [facility] Stop: 06/25/19 21:01 Last Admin: 05/28/19 20:49 Dose: 100 mg Doxazosin Mesylate (Cardura) 2 mg PO BEDTIME [facility] Stop: 06/28/19 21:46 Duloxetine HCl (Cymbalta Delayed Release Pellets) 20 mg PO DAILY [facility] Stop: 06/29/19 08:01 Ergocalciferol (Drisdol) 50,000 unit PO Cristina@0800 [facility] Stop: 06/30/19 08:01 Heparin Sodium (Porcine) (Heparin 1,000 Units/Ml) 2,000 unit IV EVERY HD [facility] Stop: 06/05/19 15:01 Heparin Sodium (Porcine) (Heparin 1,000 Units/Ml) 6,000 unit IV EVERY HD PRN PRN Reason: FLUSH AFTER EACH USE Home Med (I-Caps With Lutein-Garrett 3) 1 cap PO DAILY [facility] Stop: 06/26/19 08:01 Last Admin: 05/29/19 08:13 Dose: 1 cap Home Med (Lysine 500mg) 1 tab PO DAILY [facility] Stop: 06/26/19 08:01 Last Admin: 05/29/19 08:13 Dose: 1 tab Home Med (Febuxostat 80mg) 1 tab PO DAILY [facility] Stop: 06/26/19 08:01 Last Admin: 05/29/19 08:12 Dose: 1 tab Albumin Human (Albumin 25%) 50 mls @ 100 mls/hr IV EVERY HD [facility] Stop: 06/25/19 22:01 Lidocaine (Lidoderm 5% Patch) 1 patch TOP DAILY [facility] Stop: 06/29/19 08:01 Loratadine (Claritin) 10 mg PO DAILY [facility] Stop: 06/26/19 08:01 Last Admin: 05/29/19 08:12 Dose: 10 mg Mannitol (Mannitol 12.5 Gm/50 Ml Vial) 12.5 gm IV EVERY HD PRN PRN Reason: Titrate to SBP (MUST DEFINE) Stop: 06/25/19 21:22 Melatonin (Melatonin) 3 mg PO BEDTIME [facility] Stop: 06/27/19 21:01 Last Admin: 05/28/19 20:49 Dose: 3 mg Metoprolol Succinate (Toprol Xl) 25 mg PO BID [facility] Stop: 06/25/19 20:01 Last Admin: 05/29/19 08:12 Dose: 25 mg Polyethylene Glycol (Glycolax) 17 gm PO DAILY PRN PRN Reason: CONSTIPATION Stop: 06/25/19 15:51 Ranitidine HCl (Zantac) 150 mg PO BEDTIME [facility] Stop: 06/25/19 21:01 Last Admin: 05/28/19 20:48 Dose: 150 mg Sevelamer Carbonate (Renvela) 1,600 mg PO TIDWM [facility] Stop: 06/25/19 17:01 Last Admin: 05/29/19 16:50 Dose: 1,600 mg Vitamin B Complex/Vit C/Folic Acid (Nephro-Tenzin) 1 tab PO DAILY [facility] Stop: 06/26/19 08:01 Last Admin: 05/29/19 08:12 Dose: 1 tab Warfarin Sodium (Coumadin) 5 mg PO DAILY 5 PM [facility] Stop: 06/29/19 17:01 Lab Results (last 24 hrs) 05/29/19 05:53: PT 18.5 H, INR 1.60 Microbiology Results 05/27/19 01:15 Clean Catch Urine [place]aels Count - Final 05/27/19 01:15 Clean Catch Urine - Final No growth. Assessment/ Plan: Nephrology. Feeling better and stronger today. Working well with PT. CPS improved without CP or SOB. No acute events overnight. Vitals, medications, blood work and imaging reviewed in the chart. General: In no apparent distress, Oriented x3, Cooperative HEENT: Atraumatic Neck: Supple Respiratory: Clear to auscultation bilaterally Cardiovascular: Regular rate/rhythm, No rubs, Edema Gastrointestinal: Soft and benign, No guarding Musculoskeletal: No clubbing, No contractures Integumentary: No rashes, Other (LE Venous Stasis) Neurological: Normal speech Blood work reviewed in the chart. BUN 79; Cr 9.95; Hgb 9.6 Imagings Data: EXAM DESCRIPTION: MRI - Lumbar Spine Wo Con- 05/25/2019 7:19 pm CLINICAL HISTORY: Acute BL LE Weakness. Hx RCC. COMPARISON: Abdomen Pelvis W/Wo Contrast dated 03/10/2018 FINDINGS: Vertebral body heights are within normal limits. Blooming artifact is present the anterior aspect of the lumbar. No aggressive marrow pattern is observed. No fracture is suspected. The conus medullaris terminates at a normal level. No thickening of the cauda equina or clumping of nerve roots seen. L1-2 level: No significant findings. L2-3 level: Mild posterior disc bulge with mild facet and ligamentum flavum hypertrophy. Mild narrowing of the anterior inferior aspects of both exit foramina. L3-4 level: Asymmetric posterior disc bulge to the right is seen with moderate facet hypertrophy, greater on the right. Mild narrowing of the right lateral recess and exit foramina. L4-5 level: Mild posterior disc bulge with mild facet and ligamentum flavum hypertrophy. No canal or foraminal stenosis. L5-S1 level: Mild posterior disc bulge with mild facet and ligamentum hypertrophy. No canal or foraminal stenosis. Significant facet hypertrophy is present a small external synovial cyst on the right measuring 6 mm. 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 No severe canal or foraminal stenosis at any level is seen. Conclusions/Impression: A/ Severe LE weakness of unclear etiology. Mild progressive dementia. ESRD on HD. Hyperkalemia. HTN with CKD/ CHF. Diastolic CHF, chronic. Anemia in CKD. PRASANNA/ Secondary HyperPTH. Bradycardia on metoprolol. P/ Continue current POC and medications. Continue HD TIW. Change Doxazosin 2mg qhs and titrate as needed. Follow up cultures. No NSAIDs. AM labs. Daily weight. PT as tolerated.
[2019-05-29] MEDS: DOCUSATE NA 100 MG CAP PO SCH (23:10)
[2019-05-29] MEDS: MELATONIN 3 MG TABLET PO SCH (23:10)
[2019-05-29] MEDS: RANITIDINE 150 MG TABLET PO SCH (23:11)
[2019-05-29] MEDS: DOXAZOSIN 2 MG TAB PO SCH (23:11)
[2019-05-30] MEDS: DIPHENHYDRAMINE 25 MG TAB/CAP PO PRN (02:06)
--- NOTE | 2019-05-30 02:20 | FAST ---
SHIFT START DATE/TIME: 05/29/2019 19:00 (CDT) SHIFT END DATE/TIME: 05/30/2019 07:00 (CDT) NAME CHELA RUBALCAVA DATE OF : 1935 DATE OF ADMISSION: 05/26/2019 13:40 (CDT) PHONE: AGE: 84 N# [id number] GENDER: Male ENCOUNTER PHYSICIAN: Dr. Gamal Lafleur M.D. ADMISSION DIAGNOSIS: - Orthopaedic Disorders 08 - Unilateral Hip Fracture (08.11) left hip fx. EATING: Not assessed/no information CODE: - ORAL HYGIENE: Not assessed/no information CODE: - TOILETING HYGIENE: TOILETING HYGIENE - STEP 1: Does the patient complete the activity by him/herself with no assistance (physical, verbal/nonverbal cueing, setup/clean-up)? No. TOILETING HYGIENE - STEP 2: Does the patient need only setup/clean-up assistance from one helper? No. TOILETING HYGIENE - STEP 3: Does the patient need only verbal/nonverbal cueing or touching/steadying/contact guard assistance fro m one helper? Yes. 1. [id number] ADMISSION PERFORMANCE: Supervision or touching assistance CODE: 04 BATHING: Not assessed/no information CODE: - DRESSING - UPPER BODY: Not assessed/no information CODE: - DRESSING - LOWER BODY: Not assessed/no information CODE: - PUTTING ON/TAKING OFF FOOTWEAR: Not assessed/no information CODE: - ROLL LEFT AND RIGHT: ROLL LEFT AND RIGHT - STEP 1: Does the patient complete the activity by him/herself with no assistance (physical, verbal/nonverbal cueing, setup/clean-up)? No. ROLL LEFT AND RIGHT - STEP 2: Does the patient need only setup/clean-up assistance from one helper? No. ROLL LEFT AND RIGHT - STEP 3: Does the patient need only verbal/nonverbal cueing or touching/steadying/contact guard assistance fro m one helper? Yes. 1. [id number] ADMISSION PERFORMANCE: Supervision or touching assistance CODE: 04 SIT TO LYING: SIT TO LYING - STEP 1: Does the patient complete the activity by him/herself with no assistance (physical, verbal/nonverbal cueing, setup/clean-up)? No. SIT TO LYING - STEP 2: Does the patient need only setup/clean-up assistance from one helper? No. SIT TO LYING - STEP 3: Does the patient need only verbal/nonverbal cueing or touching/steadying/contact guard assistance fro m one helper? Yes. 1. [id number] ADMISSION PERFORMANCE: Supervision or touching assistance CODE: 04 LYING TO SITTING: LYING TO SITTING ON SIDE OF BED - STEP 1: Does the patient complete the activity by him/herself with no assistance (physical, verbal/nonverbal cueing, setup/clean-up)? No. LYING TO SITTING ON SIDE OF BED - STEP 2: Does the patient need only setup/clean-up assistance from one helper? No. LYING TO SITTING ON SIDE OF BED - STEP 3: Does the patient need only verbal/nonverbal cueing or touching/steadying/contact guard assistance fro m one helper? Yes. 1. [id number] ADMISSION PERFORMANCE: Supervision or touching assistance CODE: 04 SIT TO STAND: SIT TO STAND - STEP 1: Does the patient complete the activity by him/herself with no assistance (physical, verbal/nonverbal cueing, setup/clean-up)? No. SIT TO STAND - STEP 2: Does the patient need only setup/clean-up assistance from one helper? No. SIT TO STAND - STEP 3: Does the patient need only verbal/nonverbal cueing or touching/steadying/contact guard assistance fro m one helper? Yes. 1. [id number] ADMISSION PERFORMANCE: Supervision or touching assistance CODE: 04 TRANSFERS: BED, CHAIR: CHAIR/[id number] TRANSFER - STEP 1: Does the patient complete the activity by him/herself with no assistance (physical, verbal/nonverbal cueing, setup/clean-up)? No. CHAIR/[id number] TRANSFER - STEP 2: Does the patient need only setup/clean-up assistance from one helper? No. CHAIR/[id number] TRANSFER - STEP 3: Does the patient need only verbal/nonverbal cueing or touching/steadying/contact guard assistance fro m one helper? Yes. 1. [id number] ADMISSION PERFORMANCE: Supervision or touching assistance CODE: 04 TRANSFER TOILET: TOILET TRANSFER - STEP 1: Does the patient complete the activity by him/herself with no assistance (physical, verbal/nonverbal cueing, setup/clean-up)? No. TOILET TRANSFER - STEP 2: Does the patient need only setup/clean-up assistance from one helper? No. TOILET TRANSFER - STEP 3: Does the patient need only verbal/nonverbal cueing or touching/steadying/contact guard assistance fro m one helper? Yes. 1. [id number] ADMISSION PERFORMANCE: Supervision or touching assistance CODE: 04 TRANSFERS: CAR: Not assessed/no information CODE: - WALK 10 FEET: Not assessed/no information CODE: - 1 STEP (CURB): Not assessed/no information CODE: - PICKING UP OBJECT: Not assessed/no information CODE: - DOES THE PATIENT USE A WHEELCHAIR/SCOOTER? CODE: EXPR WHEEL 50 FEET WITH TWO TURNS: Not assessed/no information CODE: - INDICATE THE TYPE OF WHEELCHAIR/SCOOTER USED: CODE: EXPR WHEEL 150 FEET: Not assessed/no information CODE: - INDICATE THE TYPE OF WHEELCHAIR/SCOOTER USED: CODE: EXPR BLADDER AND BOWEL: H350. BLADDER CONTINENCE (3-DAY ASSESSMENT PERIOD): Incontinent daily (at least once a day) CODE: 3 H400. BOWEL CONTINENCE (3-DAY ASSESSMENT PERIOD): Not rated, patient had an ostomy or did not have a bowel movement for the entire 3 days CODE: 9
[2019-05-30 06:22] LABS: Protime INR 1.68
[2019-05-30] MEDS: LIDOCAINE 4% PATCH TOP SCH (06:33)
[2019-05-30] MEDS: [UNRECOGNIZED DRUG - OTHER] PO SCH (07:46)
[2019-05-30] MEDS: FEBUXOSTAT 80 MG PO SCH (07:46)
[2019-05-30] MEDS: ACETAMINOPHEN 325 MG TABLET PO PRN (07:46)
[2019-05-30] MEDS: DULOXETINE 20 MG CAP PO SCH (07:47)
[2019-05-30] MEDS: CYANOCOBALAMIN 1,000 MCG TAB PO SCH (07:48)
[2019-05-30] MEDS: METOPROLOL XL 25 MG TAB PO SCH ×2 (07:48→20:40)
[2019-05-30] MEDS: LORATADINE 10 MG TAB PO SCH (07:48)
[2019-05-30] MEDS: MULTIVITAMINS,THERAPEUT 1 TAB PO SCH (07:48)
[2019-05-30] MEDS: SEVELAMER CARBONATE 800 MG TABLET PO SCH ×3 (07:48→17:00)
[2019-05-30] MEDS: POLYETHYL GLY 3350 17 GM/DOSE PO PRN (13:29)
--- NOTE | 2019-05-30 15:16 | FAST ---
ENCOUNTER DATE AND TIME: 05/30/2019 08:00 (CDT) NAME CHELA RUBALCAVA DATE OF : 1935 DATE OF ADMISSION: 05/26/2019 13:40 (CDT) PHONE: AGE: 84 N# [id number] GENDER: Male ENCOUNTER PHYSICIAN: Dr. Gamal Lafleur M.D. ADMISSION DIAGNOSIS: - Orthopaedic Disorders 08 - Unilateral Hip Fracture (08.11) left hip fx. EATING: Not assessed/no information CODE: - ORAL HYGIENE: Not assessed/no information CODE: - TOILETING HYGIENE: Not assessed/no information CODE: - BATHING: Not assessed/no information CODE: - DRESSING - UPPER BODY: Not assessed/no information CODE: - DRESSING - LOWER BODY: Not assessed/no information CODE: - PUTTING ON/TAKING OFF FOOTWEAR: FOOTWEAR - STEP 1: Does the patient complete the activity by him/herself with no assistance (physical, verbal/nonverbal cueing, setup/clean-up)? No. FOOTWEAR - STEP 2: Does the patient need only setup/clean-up assistance from one helper? No. FOOTWEAR - STEP 3: Does the patient need only verbal/nonverbal cueing or touching/steadying/contact guard assistance fro m one helper? No. FOOTWEAR - STEP 4: Does the patient need physical assistance - for example lifting or trunk support from one helper - wi th the helper providing less than half of the effort? No. FOOTWEAR - STEP 5: Does the patient need physical assistance - for example lifting or trunk support from one helper - wi th the helper providing more than half of the effort? Yes. 1. [id number] ADMISSION PERFORMANCE: Substantial/maximal assistance CODE: 02 DOES THE PATIENT USE A WHEELCHAIR/SCOOTER? CODE: EXPR INDICATE THE TYPE OF WHEELCHAIR/SCOOTER USED: CODE: EXPR INDICATE THE TYPE OF WHEELCHAIR/SCOOTER USED: CODE: EXPR BLADDER AND BOWEL: CODE: EXPR CODE: EXPR SIGNATURE PANEL: The following modified sections: 1. [id number] Admission Performance were [electronically] signed by Wally Arteaga OT on Sat May 30 2019 15:15:16 GMT-0500 (Central Daylight Time)
[2019-05-30] MEDS: WARFARIN SODIUM 5 MG TAB PO SCH (17:00)
[2019-05-30 17:43] LABS: Arterial Blood Carboxyhemoglob 1.6 % (0-1.5); Blood Gas Oxyhemoglobin 89.5 % (94-97); Blood O2 Saturation 91.6 % (92-98.5)
[2019-05-30 18:12] LABS: Absolute Lymphocytes (CBC) 1.2 K/uL (0.7-4.9); Basophils % 0.7 % (0-1.3); Lymphocytes % 17.9 % (15.3-44.8); MPV 9.1 fL (7.6-11.3); RBC Red Blood Cell Count 3.15 M/uL (4.33-5.43)
[2019-05-30 18:39] LABS: Potassium 4.8 mmol/L (3.5-5.1)
[2019-05-30] MEDS: MELATONIN 3 MG TABLET PO SCH (21:00)
[2019-05-30] MEDS: DOCUSATE NA 100 MG CAP PO SCH (21:28)
[2019-05-30] MEDS: RANITIDINE 150 MG TABLET PO SCH (21:28)
[2019-05-30] MEDS: DOXAZOSIN 2 MG TAB PO SCH (21:28)
[2019-05-31] MEDS: LIDOCAINE 4% PATCH TOP SCH (06:21)
[2019-05-31 06:50] LABS: Protime INR 1.68
[2019-05-31] MEDS ORDERED: VITAMIN D 5,000 UNIT CAP PO SCH ×2 (08:00)
[2019-05-31] MEDS: FEBUXOSTAT 80 MG PO SCH (08:07)
[2019-05-31] MEDS: POLYETHYL GLY 3350 17 GM/DOSE PO PRN (08:07)
[2019-05-31] MEDS: LORATADINE 10 MG TAB PO SCH (08:08)
[2019-05-31] MEDS: DULOXETINE 20 MG CAP PO SCH (08:08)
[2019-05-31] MEDS: METOPROLOL XL 25 MG TAB PO SCH ×2 (08:08→19:49)
[2019-05-31] MEDS: DRISDOL (VITAMIN D=ERGOCALCIFEROL) 50000 UNIT CAP PO SCH (08:08)
[2019-05-31] MEDS: [UNRECOGNIZED DRUG - OTHER] PO SCH (08:08)
[2019-05-31] MEDS: SEVELAMER CARBONATE 800 MG TABLET PO SCH ×3 (08:09→16:49)
[2019-05-31] MEDS: CYANOCOBALAMIN 1,000 MCG TAB PO SCH (08:09)
[2019-05-31] MEDS: MULTIVITAMINS,THERAPEUT 1 TAB PO SCH (08:09)
[2019-05-31] MEDS ORDERED: BISACODYL 10 MG RECTAL SUPP PR PRN (11:34)
[2019-05-31 11:45] LABS: Potassium 4.7 mmol/L (3.5-5.1)
[2019-05-31] MEDS: guaiFENesin 100 MG/5 ML UCUP PO PRN (11:55)
[2019-05-31] MEDS ORDERED: Ringers Lactate 1,000 ML IV ONE (13:16)
[2019-05-31] MEDS: WARFARIN SODIUM 5 MG TAB PO SCH (16:49)
[2019-05-31] MEDS: RANITIDINE 150 MG TABLET PO SCH (20:57)
[2019-05-31] MEDS: DOXAZOSIN 2 MG TAB PO SCH (20:57)
[2019-05-31] MEDS: DIPHENHYDRAMINE 25 MG TAB/CAP PO PRN (20:58)
[2019-05-31] MEDS: DOCUSATE NA 100 MG CAP PO SCH (20:59)
[2019-05-31] MEDS: MELATONIN 3 MG TABLET PO SCH (21:00)
[2019-06-01 05:59] LABS: Protime INR 1.7
[2019-06-01] MEDS: [UNRECOGNIZED DRUG - OTHER] PO SCH (07:52)
[2019-06-01] MEDS: SEVELAMER CARBONATE 800 MG TABLET PO SCH ×3 (07:53→18:40)
[2019-06-01] MEDS: DULOXETINE 20 MG CAP PO SCH (07:54)
[2019-06-01] MEDS: LORATADINE 10 MG TAB PO SCH (07:54)
[2019-06-01] MEDS: METOPROLOL XL 25 MG TAB PO SCH ×2 (07:54→18:43)
[2019-06-01] MEDS: FEBUXOSTAT 80 MG PO SCH (07:55)
[2019-06-01] MEDS: MULTIVITAMINS,THERAPEUT 1 TAB PO SCH (07:55)
[2019-06-01] MEDS: CYANOCOBALAMIN 1,000 MCG TAB PO SCH (07:55)
[2019-06-01] MEDS: LIDOCAINE 4% PATCH TOP SCH (10:04)
--- NOTE | 2019-06-01 14:30 | FAST ---
ENCOUNTER DATE AND TIME: 06/01/2019 08:00 (CDT) NAME CHELA RUBALCAVA DATE OF : 1935 DATE OF ADMISSION: 05/26/2019 13:40 (CDT) PHONE: AGE: 84 N# [id number] GENDER: Male ENCOUNTER PHYSICIAN: Dr. Gamal Lafleur M.D. ADMISSION DIAGNOSIS: - Orthopaedic Disorders 08 - Unilateral Hip Fracture (08.11) left hip fx. EATING: Not assessed/no information CODE: - ORAL HYGIENE: ORAL HYGIENE - STEP 1: Does the patient complete the activity by him/herself with no assistance (physical, verbal/nonverbal cueing, setup/clean-up)? Yes. 1. [id number] ADMISSION PERFORMANCE: Independent CODE: 06 TOILETING HYGIENE: Not assessed/no information CODE: - BATHING: SHOWER/BATHE SELF - STEP 1: Does the patient complete the activity by him/herself with no assistance (physical, verbal/nonverbal cueing, setup/clean-up)? No. SHOWER/BATHE SELF - STEP 2: Does the patient need only setup/clean-up assistance from one helper? No. SHOWER/BATHE SELF - STEP 3: Does the patient need only verbal/nonverbal cueing or touching/steadying/contact guard assistance fro m one helper? Yes. 1. [id number] ADMISSION PERFORMANCE: Supervision or touching assistance CODE: 04 DRESSING - UPPER BODY: DRESSING - UPPER BODY - STEP 1: Does the patient complete the activity by him/herself with no assistance (physical, verbal/nonverbal cueing, setup/clean-up)? Yes. 1. [id number] ADMISSION PERFORMANCE: Independent CODE: 06 DRESSING - LOWER BODY: DRESSING - LOWER BODY - STEP 1: Does the patient complete the activity by him/herself with no assistance (physical, verbal/nonverbal cueing, setup/clean-up)? No. DRESSING - LOWER BODY - STEP 2: Does the patient need only setup/clean-up assistance from one helper? No. DRESSING - LOWER BODY - STEP 3: Does the patient need only verbal/nonverbal cueing or touching/steadying/contact guard assistance fro m one helper? Yes. 1. [id number] ADMISSION PERFORMANCE: Supervision or touching assistance CODE: 04 PUTTING ON/TAKING OFF FOOTWEAR: FOOTWEAR - STEP 1: Does the patient complete the activity by him/herself with no assistance (physical, verbal/nonverbal cueing, setup/clean-up)? No. FOOTWEAR - STEP 2: Does the patient need only setup/clean-up assistance from one helper? No. FOOTWEAR - STEP 3: Does the patient need only verbal/nonverbal cueing or touching/steadying/contact guard assistance fro m one helper? Yes. 1. [id number] ADMISSION PERFORMANCE: Supervision or touching assistance CODE: 04 DOES THE PATIENT USE A WHEELCHAIR/SCOOTER? CODE: EXPR INDICATE THE TYPE OF WHEELCHAIR/SCOOTER USED: CODE: EXPR INDICATE THE TYPE OF WHEELCHAIR/SCOOTER USED: CODE: EXPR BLADDER AND BOWEL: CODE: EXPR CODE: EXPR SIGNATURE PANEL: The following modified sections: 1. [id number] Admission Performance, 1. [id number] Admission Performance, 1. [id number] Admission Performance, 1. [id number] Admission Performance, 1. [id number] Admission Performance, 1. [id number] Admission Performance were [electronically] signed by EDITH Cox on SatJun 01 2019 14:29:40 GMT-0500 (Central Daylight Time)
--- NOTE | 2019-06-01 15:45 | FAST ---
SHIFT START DATE/TIME: 06/01/2019 07:00 (CDT) SHIFT END DATE/TIME: 06/01/2019 19:00 (CDT) NAME CHELA RUBALCAVA DATE OF : 1935 DATE OF ADMISSION: 05/26/2019 13:40 (CDT) PHONE: AGE: 84 N# [id number] GENDER: Male ENCOUNTER PHYSICIAN: Dr. Gamal Lafleur M.D. ADMISSION DIAGNOSIS: - Orthopaedic Disorders 08 - Unilateral Hip Fracture (08.11) left hip fx. EATING: EATING - STEP 1: Does the patient complete the activity by him/herself with no assistance (physical, verbal/nonverbal cueing, setup/clean-up)? No. EATING - STEP 2: Does the patient need only setup/clean-up assistance from one helper? No. EATING - STEP 3: Does the patient need only verbal/nonverbal cueing or touching/steadying/contact guard assistance fro m one helper? Yes. 1. [id number] ADMISSION PERFORMANCE: Supervision or touching assistance CODE: 04 ORAL HYGIENE: Not assessed/no information CODE: - TOILETING HYGIENE: TOILETING HYGIENE - STEP 1: Does the patient complete the activity by him/herself with no assistance (physical, verbal/nonverbal cueing, setup/clean-up)? No. TOILETING HYGIENE - STEP 2: Does the patient need only setup/clean-up assistance from one helper? No. TOILETING HYGIENE - STEP 3: Does the patient need only verbal/nonverbal cueing or touching/steadying/contact guard assistance fro m one helper? Yes. 1. [id number] ADMISSION PERFORMANCE: Supervision or touching assistance CODE: 04 BATHING: Not assessed/no information CODE: - DRESSING - UPPER BODY: Not assessed/no information CODE: - DRESSING - LOWER BODY: Not assessed/no information CODE: - PUTTING ON/TAKING OFF FOOTWEAR: Not assessed/no information CODE: - ROLL LEFT AND RIGHT: Not assessed/no information CODE: - SIT TO LYING: SIT TO LYING - STEP 1: Does the patient complete the activity by him/herself with no assistance (physical, verbal/nonverbal cueing, setup/clean-up)? No. SIT TO LYING - STEP 2: Does the patient need only setup/clean-up assistance from one helper? No. SIT TO LYING - STEP 3: Does the patient need only verbal/nonverbal cueing or touching/steadying/contact guard assistance fro m one helper? Yes. 1. [id number] ADMISSION PERFORMANCE: Supervision or touching assistance CODE: 04 LYING TO SITTING: LYING TO SITTING ON SIDE OF BED - STEP 1: Does the patient complete the activity by him/herself with no assistance (physical, verbal/nonverbal cueing, setup/clean-up)? No. LYING TO SITTING ON SIDE OF BED - STEP 2: Does the patient need only setup/clean-up assistance from one helper? No. LYING TO SITTING ON SIDE OF BED - STEP 3: Does the patient need only verbal/nonverbal cueing or touching/steadying/contact guard assistance fro m one helper? Yes. 1. [id number] ADMISSION PERFORMANCE: Supervision or touching assistance CODE: 04 SIT TO STAND: SIT TO STAND - STEP 1: Does the patient complete the activity by him/herself with no assistance (physical, verbal/nonverbal cueing, setup/clean-up)? No. SIT TO STAND - STEP 2: Does the patient need only setup/clean-up assistance from one helper? No. SIT TO STAND - STEP 3: Does the patient need only verbal/nonverbal cueing or touching/steadying/contact guard assistance fro m one helper? No. SIT TO STAND - STEP 4: Does the patient need physical assistance - for example lifting or trunk support from one helper - wi th the helper providing less than half of the effort? Yes. 1. [id number] ADMISSION PERFORMANCE: Partial/moderate assistance CODE: 03 TRANSFERS: BED, CHAIR: CHAIR/[id number] TRANSFER - STEP 1: Does the patient complete the activity by him/herself with no assistance (physical, verbal/nonverbal cueing, setup/clean-up)? No. CHAIR/[id number] TRANSFER - STEP 2: Does the patient need only setup/clean-up assistance from one helper? No. CHAIR/[id number] TRANSFER - STEP 3: Does the patient need only verbal/nonverbal cueing or touching/steadying/contact guard assistance fro m one helper? No. CHAIR/[id number] TRANSFER - STEP 4: Does the patient need physical assistance - for example lifting or trunk support from one helper - wi th the helper providing less than half of the effort? Yes. 1. [id number] ADMISSION PERFORMANCE: Partial/moderate assistance CODE: 03 TRANSFER TOILET: TOILET TRANSFER - STEP 1: Does the patient complete the activity by him/herself with no assistance (physical, verbal/nonverbal cueing, setup/clean-up)? No. TOILET TRANSFER - STEP 2: Does the patient need only setup/clean-up assistance from one helper? No. TOILET TRANSFER - STEP 3: Does the patient need only verbal/nonverbal cueing or touching/steadying/contact guard assistance fro m one helper? No. TOILET TRANSFER - STEP 4: Does the patient need physical assistance - for example lifting or trunk support from one helper - wi th the helper providing less than half of the effort? Yes. 1. [id number] ADMISSION PERFORMANCE: Partial/moderate assistance CODE: 03 TRANSFERS: CAR: Not assessed/no information CODE: - WALK 10 FEET: Not assessed/no information CODE: - 1 STEP (CURB): Not assessed/no information CODE: - PICKING UP OBJECT: Not assessed/no information CODE: - DOES THE PATIENT USE A WHEELCHAIR/SCOOTER? CODE: EXPR WHEEL 50 FEET WITH TWO TURNS: Not assessed/no information CODE: - INDICATE THE TYPE OF WHEELCHAIR/SCOOTER USED: CODE: EXPR WHEEL 150 FEET: Not assessed/no information CODE: - INDICATE THE TYPE OF WHEELCHAIR/SCOOTER USED: CODE: EXPR BLADDER AND BOWEL: H350. BLADDER CONTINENCE (3-DAY ASSESSMENT PERIOD): No urine output (e.g., renal failure) CODE: 5 H400. BOWEL CONTINENCE (3-DAY ASSESSMENT PERIOD): Always continent CODE: 0 SIGNATURE PANEL: The following modified sections: 1. [id number] Admission Performance, 1. [id number] Admission Performance, 1. [id number] Admission Performance, 1. [id number] Admission Performance, 1. AZ4127B Admission Performance, 1. [id number] Admission Performance, 1. JD0622I Admission Performance, 1. [id number] Admission Performance , 1. [id number] Admission Performance, 1. [id number] Admission Performance, Code, H350. Bladder Continence (3-day assessment period), H400. Bowel Continence (3-day assessment period) were [electronically] sig rufino by Josiah Mojica on SatJun 01 2019 15:44:22 GMT-0500 (Central Daylight Time)
--- NOTE | 2019-06-01 16:50 | P.PN ---
Date of Service: 06/01/19 Vital Signs Temp Pulse Resp BP Pulse Ox 97.6 F 62 16 125/55 L 95 06/01/19 07:29 06/01/19 07:54 06/01/19 07:29 06/01/19 07:54 06/01/19 07:29 Medications Acetaminophen (Tylenol -Tablet) 650 mg PO DAILY PRN PRN Reason: Pain scale 5-7 (Moderate) Stop: 06/26/19 08:01 Last Admin: 05/30/19 07:46 Dose: 650 mg Bisacodyl (Dulcolax) 10 mg WV DAILY PRN PRN Reason: CONSTIPATION Stop: 06/30/19 11:35 Last Admin: 05/31/19 12:45 Dose: 10 mg Cyanocobalamin (Vitamin B-12) 2,000 mcg PO DAILY BASSAM Stop: 06/26/19 08:01 Last Admin: 06/01/19 07:55 Dose: 2,000 mcg Diphenhydramine HCl (Benadryl Tab/Cap) 25 mg PO Q6H PRN PRN Reason: ITCHING Stop: 06/25/19 15:07 Docusate Sodium (Colace Cap) 100 mg PO BEDTIME BASSAM Stop: 06/25/19 21:01 Last Admin: 05/31/19 20:59 Dose: Not Given Doxazosin Mesylate (Cardura) 2 mg PO BEDTIME BASSAM Stop: 06/28/19 21:46 Last Admin: 05/31/19 20:57 Dose: 2 mg Duloxetine HCl (Cymbalta Delayed Release Pellets) 20 mg PO DAILY BASSAM Stop: 06/29/19 08:01 Last Admin: 06/01/19 07:54 Dose: 20 mg Ergocalciferol (Drisdol) 50,000 unit PO Cristina@0800 BASSAM Stop: 06/30/19 08:01 Last Admin: 05/31/19 08:08 Dose: 50,000 unit Guaifenesin (Robitussin 100mg/5ml) 100 mg PO QID PRN PRN Reason: COUGH Stop: 06/30/19 11:34 Last Admin: 05/31/19 11:55 Dose: 100 mg Heparin Sodium (Porcine) (Heparin 1,000 Units/Ml) 2,000 unit IV EVERY HD BASSAM Stop: 06/05/19 15:01 Heparin Sodium (Porcine) (Heparin 1,000 Units/Ml) 6,000 unit IV EVERY HD PRN PRN Reason: FLUSH AFTER EACH USE Home Med (I-Caps With Lutein-Bern 3) 1 cap PO DAILY BASSAM Stop: 06/26/19 08:01 Last Admin: 06/01/19 07:52 Dose: 1 cap Home Med (Lysine 500mg) 1 tab PO DAILY BASSAM Stop: 06/26/19 08:01 Last Admin: 06/01/19 07:52 Dose: 1 tab Home Med (Febuxostat 80mg) 1 tab PO DAILY BASSAM Stop: 06/26/19 08:01 Last Admin: 06/01/19 07:55 Dose: 1 tab Albumin Human (Albumin 25%) 50 mls @ 100 mls/hr IV EVERY HD BASSAM Stop: 06/25/19 22:01 Lidocaine (Lidoderm 5% Patch) 2 patch TOP DAILY BASSAM Stop: 07/02/19 08:01 Loratadine (Claritin) 10 mg PO DAILY BASSAM Stop: 06/26/19 08:01 Last Admin: 06/01/19 07:54 Dose: 10 mg Mannitol (Mannitol 12.5 Gm/50 Ml Vial) 12.5 gm IV EVERY HD PRN PRN Reason: Titrate to SBP (MUST DEFINE) Stop: 06/25/19 21:22 Melatonin (Melatonin) 3 mg PO BEDTIME BASSAM Stop: 06/27/19 21:01 Last Admin: 05/31/19 21:00 Dose: Not Given Metoprolol Succinate (Toprol Xl) 25 mg PO BID BASSAM Stop: 06/25/19 20:01 Last Admin: 06/01/19 07:54 Dose: 25 mg Polyethylene Glycol (Glycolax) 17 gm PO DAILY PRN PRN Reason: CONSTIPATION Stop: 06/25/19 15:51 Last Admin: 05/31/19 08:07 Dose: 17 gm Ranitidine HCl (Zantac) 150 mg PO BEDTIME BASSAM Stop: 06/25/19 21:01 Last Admin: 05/31/19 20:57 Dose: 150 mg Sevelamer Carbonate (Renvela) 1,600 mg PO TIDWM BASSAM Stop: 06/25/19 17:01 Last Admin: 06/01/19 12:04 Dose: 1,600 mg Vitamin B Complex/Vit C/Folic Acid (Nephro-Tenzin) 1 tab PO DAILY BASSAM Stop: 06/26/19 08:01 Last Admin: 06/01/19 07:55 Dose: 1 tab Warfarin Sodium (Coumadin) 8 mg PO 1700 ONE Stop: 06/01/19 17:01 Warfarin Sodium (Coumadin) 6 mg PO DAILY 5 PM [facility] Stop: 07/02/19 17:01 Lab Results (last 24 hrs) 06/01/19 05:38: PT 19.7 H, INR 1.70 Microbiology Results 05/27/19 01:15 Clean Catch Urine Barry Count - Final 05/27/19 01:15 Clean Catch Urine - Final No growth. Assessment/ Plan: Nephrology. Feeling better and stronger today. Working well with PT. CPS stable without CP or SOB. No acute events overnight. Vitals, medications, blood work and imaging reviewed in the chart. General: In no apparent distress, Oriented x3, Cooperative HEENT: Atraumatic Neck: Supple Respiratory: Clear to auscultation bilaterally Cardiovascular: Regular rate/rhythm, No rubs, Edema Gastrointestinal: Soft and benign, No guarding Musculoskeletal: No clubbing, No contractures Integumentary: No rashes, Other (LE Venous Stasis) Neurological: Normal speech Blood work reviewed in the chart. BUN 79; Cr 9.95; Hgb 9.6 Imagings Data: EXAM DESCRIPTION: MRI - Lumbar Spine Wo Con- 05/25/2019 7:19 pm CLINICAL HISTORY: Acute BL LE Weakness. Hx RCC. COMPARISON: Abdomen Pelvis W/Wo Contrast dated 03/10/2018 FINDINGS: Vertebral body heights are within normal limits. Blooming artifact is present the anterior aspect of the lumbar. No aggressive marrow pattern is observed. No fracture is suspected. The conus medullaris terminates at a normal level. No thickening of the cauda equina or clumping of nerve roots seen. L1-2 level: No significant findings. L2-3 level: Mild posterior disc bulge with mild facet and ligamentum flavum hypertrophy. Mild narrowing of the anterior inferior aspects of both exit foramina. L3-4 level: Asymmetric posterior disc bulge to the right is seen with moderate facet hypertrophy, greater on the right. Mild narrowing of the right lateral recess and exit foramina. L4-5 level: Mild posterior disc bulge with mild facet and ligamentum flavum hypertrophy. No canal or foraminal stenosis. L5-S1 level: Mild posterior disc bulge with mild facet and ligamentum hypertrophy. No canal or foraminal stenosis. Significant facet hypertrophy is present a small external synovial cyst on the right measuring 6 mm. 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 No severe canal or foraminal stenosis at any level is seen. Conclusions/Impression: A/ Severe LE weakness of unclear etiology. Mild progressive dementia. ESRD on HD. Hyperkalemia. HTN with CKD/ CHF. Diastolic CHF, chronic. Anemia in CKD. PRASANNA/ Secondary HyperPTH. Bradycardia on metoprolol. P/ Continue current POC and medications. Continue HD TIW. Seen and examined on HD. Cultures negative. No NSAIDs. AM labs. Daily weight. Aggressive PT as tolerated.
[2019-06-01] MEDS ORDERED: WARFARIN SODIUM 4 MG TAB PO ONE (17:00)
--- NOTE | 2019-06-01 18:22 | R.PN ---
ENCOUNTER DATE AND TIME: 06/01/2019 18:19 (CDT) NAME CHELA RUBALCAVA DATE OF : 1935 DATE OF ADMISSION: 05/26/2019 13:40 (CDT) left hip fxCHIEF COMPLAINT: Left hip fracture SUBJECTIVE: Pt denied any depression. Pt denied any Shortness of Breath. He is making good progress with physical and occupational therapy. His blood work is stable. Pain is well managed. VITAL SIGNS Temperature: 97.7 F SBP/DBP: 142/78 Pulse: 72 Resp: 16 MEDICATION ALLERGIES: ADHESIVE TAPE codeine Penicillin ENVIRONMENTAL ALLERGIES: - Substance Allergies None Known - Other Allergies None Known NURSING: - Shower allowing shower - Skin care per protocol PRECAUTIONS: - Anterior Hip Precaution No abduction No active extension No adduction across midline No external rotation No hip flexion >90 degrees No internal rotation - Weight Bearing Precaution WBAT left LE ACTIVITIES OOB only with supervision THERAPIES: - Dietary and Nutrition Adequate Nutrition. Nutritional Education. Nutritional Supplements. PHYSICAL EXAM - Gen Alert and awake Lying in bed No apparent distress Oriented to: person, time, and place - Skin No breakdown No abnormalities - Eyes No abnormalities - ENMT No abnormalities - Neck No abnormalities - CVS RRR - Chest No abnormalities - Abd Soft - GI nondistended Deferred - No abnormalities - Ext Mild left lower extremity edema. - MSK 4+/5 weakness in left lower extremity - Neuro 4/5 strength left lower extremity. - Psych No abnormalities ASSESSMENT: Pt. is a 84 yo Right-handed white male.On 02/18/2019 he was admitted to [facility] with diagnosis left hip fx.His impairment category is Orthopaedic Disorders 08 - Unilateral Hip Fracture (08.11).Pre-mo rbidly, Pt. was independent/mod-I in Self-Care, Sphincter Control, Transfers Control, Locomotion, Com munication, and Social Cognition; and he had good Sphincter Control.Currently, he has deficits of Meli f-Care, Transfers Control, Locomotion, Endurance, Balance, and Safety Awareness.Pt. is now referred t [facility] for acute in-patient rehabilitation in order to maximize patient' s functional independence in activities of daily living, strength, ROM, and mobility.- Rehab Goal Patient has realistic goal of being discharged at assistance level 6-Gisselle to reside at Home with Fam connie/Relatives. MDM/PLAN: - Physical Therapy Decreased range of motion - to improve, our physical therapists will perform initial evaluation of p t's status upon admission and devise an individualized program for increasing patient's Range of Magdaleno on. Gait dysfunction - to improve, our physical therapists will perform initial evaluation of pt's statu s upon admission and devise an individualized program for Gait Training, and Wheel Chair mobility Inability to transfer - to improve, our physical therapists will perform initial evaluation of pt's status upon admission and devise an individualized program for Bed mobility Need for home safety evaluation - to improve, our physical therapists will perform initial evaluatio n of pt's status upon admission and devise an individualized program for Home Evaluation Need in caregiver upon discharge - to improve, our physical therapists will perform initial evaluati on of pt's status upon admission and devise an individualized program for Caregiver Training Edema - to improve, our physical therapists will perform initial evaluation of pt's status upon admi ssion and devise an individualized program for Elevation Training, and Lymphedema Therapy New precaution - to improve, our physical therapists will perform initial evaluation of pt's status upon admission and devise an individualized program for Patient precaution education Poor balance - to improve, our physical therapists will perform initial evaluation of pt's status up on admission and devise an individualized program for Balance Training Poor endurance - to improve, our physical therapists will perform initial evaluation of pt's status upon admission and devise an individualized program for Endurance Training Weakness - to improve, our physical therapists will perform initial evaluation of pt's status upon a dmission and devise an individualized program for Aquatic Therapy, Neuromuscular Reeducation, and Str engthening Achieving independence - to improve, our physical therapists will perform initial evaluation of pt's status upon admission and devise an individualized program for Community Reintegration Activities - Occupational Therapy ADL deficits - to improve, our occupation therapists will perform initial evaluation of pt's status upon admission and devise an individualized program for Bathing, Bed mobility, Community Reintegratio n, Cooking, Dressing, Eating, Fine Motor Skills, Grooming, Homemaking, Kitchen Mobility, Laundry, Pat ient Education, Safety Awareness, Splinting - Positioning, Transfers(Toilet, Tub, Shower), and Wheel Chair Management Need for assurance services manager health care - to improve, our occupation therapists will perform initial evaluation of pt's status upon admission and devise an individualized program for Caregiver Training Weakness - to improve, our occupation therapists will perform initial evaluation of pt's status upon admission and devise an individualized program for Aquatic Therapy, Balance, Endurance, UE ROM, and UE strengthening - Other See attached MAR (Medication Administration Record) - Anterior Hip Precaution No abduction No active extension No adduction across midline No external rotation No hip flexion >90 degrees No internal rotation - Diet - Liquid Texture Continue Regular - Tube Feed Continue N/A - Diet Type Continue Regular - Posterior Hip Precaution No adduction across midline No external rotation No hip flexion >90 degrees No internal rotation No wheel chair propulsion - Weight Bearing Precaution WBAT left LE - Skin care per protocol - Diet - Solid Texture Continue Regular - Shower allowing shower FUNCTIONAL STATUS: UPDATED AT WEEKLY TEAM CONFERENCE - Bladder Same accident frequency: 7-Ind - No accidents in the past 7 days - Bowel Same accident frequency: 7-Ind - No accidents in the past 7 days - Walking Same score based on distance walked: 2(50-149ft) - Wheelchair Same score based on distance traveled: 1(<=50ft) FUNCTIONAL STATUS: - Self-Care A. Eating sup B. Grooming sup C. Bathing modA D. Dressing - Upper sup E. Dressing - Lower Levi F. Toileting Levi - Sphincter Control G: Bladder control Ind H: Bowel control Ind - Transfers Control I. Bed/Chair/Wheelchair modA J. Toilet modA K. Tub/Shower modA - Locomotion L. Walk/Wheelchair (C) modA L. Walk/Wheelchair (W) ADNO M. Stairs ADNO - Communication N. Comprehension (B) Gisselle O. Expression (B) Gisselle - Social Cognition P. Social Interaction Gisselle Q. Problem Solving Gisselle R. Memory Gisselle - Endurance Poor - Balance Poor - Safety Awareness Fair QI SCORES:: - Self-Care A. Eating 05-Setup or clean-up assistance B. Oral hygiene 05-Setup or clean-up assistance C. Toileting hygiene 04-Supervision or touching assistance E. Shower/bathe self 03-Partial/moderate assistance F. Upper body dressing 05-Setup or clean-up assistance G. Lower body dressing 03-Partial/moderate assistance H. Putting on/taking off footwear 02-Substantial/maximal assistance - Mobility A. Roll left and right 03-Partial/moderate assistance B. Sit to lying 03-Partial/moderate assistance C. Lying to sitting on side of bed 03-Partial/moderate assistance D. Sit to stand 03-Partial/moderate assistance E. Chair/[id number]-ioedr transfer 03-Partial/moderate assistance F. Toilet transfer 03-Partial/moderate assistance G. Car transfer 88-Not attempted due to medical condition or safety concerns I. Walk 10 feet 03-Partial/moderate assistance J. Walk 50 feet with two turns 03-Partial/moderate assistance K. Walk 150 feet 88-Not attempted due to medical condition or safety concerns L. Walking 10 feet on uneven surfaces 88-Not attempted due to medical condition or safety concerns M. 1 step (curb) 88-Not attempted due to medical condition or safety concerns N. 4 steps 88-Not attempted due to medical condition or safety concerns O. 12 steps 88-Not attempted due to medical condition or safety concerns P. Picking up object 88-Not attempted due to medical condition or safety concerns R. Wheel 50 feet with two turns 88-Not attempted due to medical condition or safety concerns S. Wheel 150 feet 88-Not attempted due to medical condition or safety concerns - Bladder and Bowel Bladder continence 0-Always continent Bowel continence 0-Always continent CURRENT FUNC. DEFICITS: Self-Care, Transfers Control, Locomotion, Endurance, Balance, and Safety Awareness SIGNATURE PANEL: (CDT)
[2019-06-01] MEDS: RANITIDINE 150 MG TABLET PO SCH (18:41)
[2019-06-01] MEDS: DOXAZOSIN 2 MG TAB PO SCH (18:42)
[2019-06-01] MEDS: MELATONIN 3 MG TABLET PO SCH (18:43)
[2019-06-01] MEDS: DOCUSATE NA 100 MG CAP PO SCH (18:44)
[2019-06-02 06:07] LABS: Protime INR 1.61
[2019-06-02] MEDS: LIDOCAINE 4% PATCH TOP SCH (06:32)
[2019-06-02] MEDS: [UNRECOGNIZED DRUG - OTHER] PO SCH (07:53)
[2019-06-02] MEDS: SEVELAMER CARBONATE 800 MG TABLET PO SCH ×3 (07:54→16:58)
[2019-06-02] MEDS: CYANOCOBALAMIN 1,000 MCG TAB PO SCH (07:55)
[2019-06-02] MEDS: MULTIVITAMINS,THERAPEUT 1 TAB PO SCH (07:55)
[2019-06-02] MEDS: DULOXETINE 20 MG CAP PO SCH (07:55)
[2019-06-02] MEDS: METOPROLOL XL 25 MG TAB PO SCH ×2 (07:55→19:17)
[2019-06-02] MEDS: LORATADINE 10 MG TAB PO SCH (07:55)
[2019-06-02] MEDS: FEBUXOSTAT 80 MG PO SCH (07:56)
--- NOTE | 2019-06-02 14:04 | FAST ---
SHIFT START DATE/TIME: 06/02/2019 07:00 (CDT) SHIFT END DATE/TIME: 06/02/2019 19:00 (CDT) NAME CHELA RUBALCAVA DATE OF : 1935 DATE OF ADMISSION: 05/26/2019 13:40 (CDT) PHONE: AGE: 84 N# [id number] GENDER: Male ENCOUNTER PHYSICIAN: Dr. Gamal Lafleur M.D. ADMISSION DIAGNOSIS: - Orthopaedic Disorders 08 - Unilateral Hip Fracture (08.11) left hip fx. EATING: EATING - STEP 1: Does the patient complete the activity by him/herself with no assistance (physical, verbal/nonverbal cueing, setup/clean-up)? No. EATING - STEP 2: Does the patient need only setup/clean-up assistance from one helper? Yes. 1. [id number] ADMISSION PERFORMANCE: Setup or clean-up assistance CODE: 05 ORAL HYGIENE: ORAL HYGIENE - STEP 1: Does the patient complete the activity by him/herself with no assistance (physical, verbal/nonverbal cueing, setup/clean-up)? No. ORAL HYGIENE - STEP 2: Does the patient need only setup/clean-up assistance from one helper? Yes. 1. [id number] ADMISSION PERFORMANCE: Setup or clean-up assistance CODE: 05 TOILETING HYGIENE: TOILETING HYGIENE - STEP 1: Does the patient complete the activity by him/herself with no assistance (physical, verbal/nonverbal cueing, setup/clean-up)? No. TOILETING HYGIENE - STEP 2: Does the patient need only setup/clean-up assistance from one helper? No. TOILETING HYGIENE - STEP 3: Does the patient need only verbal/nonverbal cueing or touching/steadying/contact guard assistance fro m one helper? Yes. 1. [id number] ADMISSION PERFORMANCE: Supervision or touching assistance CODE: 04 BATHING: Not assessed/no information CODE: - DRESSING - UPPER BODY: DRESSING - UPPER BODY - STEP 1: Does the patient complete the activity by him/herself with no assistance (physical, verbal/nonverbal cueing, setup/clean-up)? No. DRESSING - UPPER BODY - STEP 2: Does the patient need only setup/clean-up assistance from one helper? No. DRESSING - UPPER BODY - STEP 3: Does the patient need only verbal/nonverbal cueing or touching/steadying/contact guard assistance fro m one helper? No. DRESSING - UPPER BODY - STEP 4: Does the patient need physical assistance - for example lifting or trunk support from one helper - wi th the helper providing less than half of the effort? Yes. 1. [id number] ADMISSION PERFORMANCE: Partial/moderate assistance CODE: 03 DRESSING - LOWER BODY: DRESSING - LOWER BODY - STEP 1: Does the patient complete the activity by him/herself with no assistance (physical, verbal/nonverbal cueing, setup/clean-up)? No. DRESSING - LOWER BODY - STEP 2: Does the patient need only setup/clean-up assistance from one helper? No. DRESSING - LOWER BODY - STEP 3: Does the patient need only verbal/nonverbal cueing or touching/steadying/contact guard assistance fro m one helper? Yes. 1. [id number] ADMISSION PERFORMANCE: Supervision or touching assistance CODE: 04 PUTTING ON/TAKING OFF FOOTWEAR: FOOTWEAR - STEP 1: Does the patient complete the activity by him/herself with no assistance (physical, verbal/nonverbal cueing, setup/clean-up)? No. FOOTWEAR - STEP 2: Does the patient need only setup/clean-up assistance from one helper? No. FOOTWEAR - STEP 3: Does the patient need only verbal/nonverbal cueing or touching/steadying/contact guard assistance fro m one helper? Yes. 1. [id number] ADMISSION PERFORMANCE: Supervision or touching assistance CODE: 04 ROLL LEFT AND RIGHT: Not assessed/no information CODE: - SIT TO LYING: SIT TO LYING - STEP 1: Does the patient complete the activity by him/herself with no assistance (physical, verbal/nonverbal cueing, setup/clean-up)? No. SIT TO LYING - STEP 2: Does the patient need only setup/clean-up assistance from one helper? No. SIT TO LYING - STEP 3: Does the patient need only verbal/nonverbal cueing or touching/steadying/contact guard assistance fro m one helper? Yes. 1. [id number] ADMISSION PERFORMANCE: Supervision or touching assistance CODE: 04 LYING TO SITTING: LYING TO SITTING ON SIDE OF BED - STEP 1: Does the patient complete the activity by him/herself with no assistance (physical, verbal/nonverbal cueing, setup/clean-up)? No. LYING TO SITTING ON SIDE OF BED - STEP 2: Does the patient need only setup/clean-up assistance from one helper? No. LYING TO SITTING ON SIDE OF BED - STEP 3: Does the patient need only verbal/nonverbal cueing or touching/steadying/contact guard assistance fro m one helper? Yes. 1. [id number] ADMISSION PERFORMANCE: Supervision or touching assistance CODE: 04 SIT TO STAND: SIT TO STAND - STEP 1: Does the patient complete the activity by him/herself with no assistance (physical, verbal/nonverbal cueing, setup/clean-up)? No. SIT TO STAND - STEP 2: Does the patient need only setup/clean-up assistance from one helper? No. SIT TO STAND - STEP 3: Does the patient need only verbal/nonverbal cueing or touching/steadying/contact guard assistance fro m one helper? Yes. 1. [id number] ADMISSION PERFORMANCE: Supervision or touching assistance CODE: 04 TRANSFERS: BED, CHAIR: CHAIR/[id number] TRANSFER - STEP 1: Does the patient complete the activity by him/herself with no assistance (physical, verbal/nonverbal cueing, setup/clean-up)? No. CHAIR/[id number] TRANSFER - STEP 2: Does the patient need only setup/clean-up assistance from one helper? No. CHAIR/AKA-LE-DYOGS TRANSFER - STEP 3: Does the patient need only verbal/nonverbal cueing or touching/steadying/contact guard assistance fro m one helper? Yes. 1. [id number] ADMISSION PERFORMANCE: Supervision or touching assistance CODE: 04 TRANSFER TOILET: TOILET TRANSFER - STEP 1: Does the patient complete the activity by him/herself with no assistance (physical, verbal/nonverbal cueing, setup/clean-up)? No. TOILET TRANSFER - STEP 2: Does the patient need only setup/clean-up assistance from one helper? No. TOILET TRANSFER - STEP 3: Does the patient need only verbal/nonverbal cueing or touching/steadying/contact guard assistance fro m one helper? Yes. 1. [id number] ADMISSION PERFORMANCE: Supervision or touching assistance CODE: 04 TRANSFERS: CAR: Not assessed/no information CODE: - WALK 10 FEET: Not assessed/no information CODE: - 1 STEP (CURB): Not assessed/no information CODE: - PICKING UP OBJECT: Not assessed/no information CODE: - DOES THE PATIENT USE A WHEELCHAIR/SCOOTER? CODE: EXPR WHEEL 50 FEET WITH TWO TURNS: Not assessed/no information CODE: - INDICATE THE TYPE OF WHEELCHAIR/SCOOTER USED: CODE: EXPR WHEEL 150 FEET: Not assessed/no information CODE: - INDICATE THE TYPE OF WHEELCHAIR/SCOOTER USED: CODE: EXPR BLADDER AND BOWEL: H350. BLADDER CONTINENCE (3-DAY ASSESSMENT PERIOD): No urine output (e.g., renal failure) CODE: 5 H400. BOWEL CONTINENCE (3-DAY ASSESSMENT PERIOD): Always continent CODE: 0 SIGNATURE PANEL: The following modified sections: 1. [id number] Admission Performance, 1. HY2559A Admission Performance, 1. IC4372E Admission Performance, 1. FQ8438q Admission Performance, 1. KW6024h Admission Performance, 1. DA6450a Admission Performance, 1. CP6628g Admission Performance, 1. ZU0903B Admission Performance , 1. CQ9527P Admission Performance, 1. ED0206M Admission Performance, 1. QM8818J Admission Performanc e, 1. WX6291T Admission Performance, 1. CL9100B Admission Performance, Code, H350. Bladder Continence (3-day assessment period), H400. Bowel Continence (3-day assessment period) were [electronically] si gned by Josiah Mojica on SatJun 02 2019 14:04:22 GMT-0500 (Central Daylight Time)
[2019-06-02] MEDS: POLYETHYL GLY 3350 17 GM/DOSE PO PRN (14:20)
[2019-06-02] MEDS: WARFARIN SODIUM 6 MG TAB PO SCH (16:59)
[2019-06-02] MEDS: DOXAZOSIN 2 MG TAB PO SCH (19:16)
[2019-06-02] MEDS: RANITIDINE 150 MG TABLET PO SCH (19:16)
[2019-06-02] MEDS: DIPHENHYDRAMINE 25 MG TAB/CAP PO PRN (19:16)
[2019-06-02] MEDS: DOCUSATE NA 100 MG CAP PO SCH (19:16)
[2019-06-02] MEDS: MELATONIN 3 MG TABLET PO SCH (19:18)
[2019-06-03 06:05] LABS: Protime INR 1.57
[2019-06-03] MEDS: FEBUXOSTAT 80 MG PO SCH (08:26)
[2019-06-03] MEDS: [UNRECOGNIZED DRUG - OTHER] PO SCH (08:26)
[2019-06-03] MEDS: MULTIVITAMINS,THERAPEUT 1 TAB PO SCH (08:27)
[2019-06-03] MEDS: SEVELAMER CARBONATE 800 MG TABLET PO SCH ×3 (08:27→18:39)
[2019-06-03] MEDS: DULOXETINE 20 MG CAP PO SCH (08:27)
[2019-06-03] MEDS: CYANOCOBALAMIN 1,000 MCG TAB PO SCH (08:28)
[2019-06-03] MEDS: METOPROLOL XL 25 MG TAB PO SCH ×2 (08:28→19:37)
[2019-06-03] MEDS: LORATADINE 10 MG TAB PO SCH (08:29)
[2019-06-03] MEDS: LIDOCAINE 4% PATCH TOP SCH (09:16)
--- NOTE | 2019-06-03 12:17 | FAST ---
ENCOUNTER DATE AND TIME: 06/03/2019 08:00 (CDT) NAME CHELA RUBALCAVA DATE OF : 1935 DATE OF ADMISSION: 05/26/2019 13:40 (CDT) PHONE: AGE: 84 N# [id number] GENDER: Male ENCOUNTER PHYSICIAN: Dr. Gamal Lafleur M.D. ADMISSION DIAGNOSIS: - Orthopaedic Disorders 08 - Unilateral Hip Fracture (08.11) left hip fx. EATING: Not assessed/no information CODE: - ORAL HYGIENE: ORAL HYGIENE - STEP 1: Does the patient complete the activity by him/herself with no assistance (physical, verbal/nonverbal cueing, setup/clean-up)? Yes. 1. [id number] ADMISSION PERFORMANCE: Independent CODE: 06 TOILETING HYGIENE: Not assessed/no information CODE: - BATHING: SHOWER/BATHE SELF - STEP 1: Does the patient complete the activity by him/herself with no assistance (physical, verbal/nonverbal cueing, setup/clean-up)? No. SHOWER/BATHE SELF - STEP 2: Does the patient need only setup/clean-up assistance from one helper? No. SHOWER/BATHE SELF - STEP 3: Does the patient need only verbal/nonverbal cueing or touching/steadying/contact guard assistance fro m one helper? Yes. 1. [id number] ADMISSION PERFORMANCE: Supervision or touching assistance CODE: 04 DRESSING - UPPER BODY: DRESSING - UPPER BODY - STEP 1: Does the patient complete the activity by him/herself with no assistance (physical, verbal/nonverbal cueing, setup/clean-up)? No. DRESSING - UPPER BODY - STEP 2: Does the patient need only setup/clean-up assistance from one helper? Yes. 1. [id number] ADMISSION PERFORMANCE: Setup or clean-up assistance CODE: 05 DRESSING - LOWER BODY: DRESSING - LOWER BODY - STEP 1: Does the patient complete the activity by him/herself with no assistance (physical, verbal/nonverbal cueing, setup/clean-up)? No. DRESSING - LOWER BODY - STEP 2: Does the patient need only setup/clean-up assistance from one helper? No. DRESSING - LOWER BODY - STEP 3: Does the patient need only verbal/nonverbal cueing or touching/steadying/contact guard assistance fro m one helper? Yes. 1. [id number] ADMISSION PERFORMANCE: Supervision or touching assistance CODE: 04 PUTTING ON/TAKING OFF FOOTWEAR: FOOTWEAR - STEP 1: Does the patient complete the activity by him/herself with no assistance (physical, verbal/nonverbal cueing, setup/clean-up)? No. FOOTWEAR - STEP 2: Does the patient need only setup/clean-up assistance from one helper? No. FOOTWEAR - STEP 3: Does the patient need only verbal/nonverbal cueing or touching/steadying/contact guard assistance fro m one helper? Yes. 1. [id number] ADMISSION PERFORMANCE: Supervision or touching assistance CODE: 04 DOES THE PATIENT USE A WHEELCHAIR/SCOOTER? CODE: EXPR INDICATE THE TYPE OF WHEELCHAIR/SCOOTER USED: CODE: EXPR INDICATE THE TYPE OF WHEELCHAIR/SCOOTER USED: CODE: EXPR BLADDER AND BOWEL: CODE: EXPR CODE: EXPR SIGNATURE PANEL: The following modified sections: 1. [id number] Admission Performance, 1. [id number] Admission Performance, 1. CX1082n Admission Performance, 1. UU7531n Admission Performance, 1. ZM3365s Admission Performance were [electronically] signed by EDITH Cox on SatJun 03 2019 12:16:17 T-0500 (Central Daylight Time)
--- NOTE | 2019-06-03 14:04 | FAST ---
SHIFT START DATE/TIME: 06/03/2019 07:00 (CDT) SHIFT END DATE/TIME: 06/03/2019 19:00 (CDT) NAME CHELA RUBALCAVA DATE OF : 1935 DATE OF ADMISSION: 05/26/2019 13:40 (CDT) PHONE: AGE: 84 N# [id number] GENDER: Male ENCOUNTER PHYSICIAN: Dr. Gamal Lafleur M.D. ADMISSION DIAGNOSIS: - Orthopaedic Disorders 08 - Unilateral Hip Fracture (08.11) left hip fx. EATING: EATING - STEP 1: Does the patient complete the activity by him/herself with no assistance (physical, verbal/nonverbal cueing, setup/clean-up)? No. EATING - STEP 2: Does the patient need only setup/clean-up assistance from one helper? No. EATING - STEP 3: Does the patient need only verbal/nonverbal cueing or touching/steadying/contact guard assistance fro m one helper? Yes. 1. [id number] ADMISSION PERFORMANCE: Supervision or touching assistance CODE: 04 ORAL HYGIENE: ORAL HYGIENE - STEP 1: Does the patient complete the activity by him/herself with no assistance (physical, verbal/nonverbal cueing, setup/clean-up)? No. ORAL HYGIENE - STEP 2: Does the patient need only setup/clean-up assistance from one helper? Yes. 1. [id number] ADMISSION PERFORMANCE: Setup or clean-up assistance CODE: 05 TOILETING HYGIENE: TOILETING HYGIENE - STEP 1: Does the patient complete the activity by him/herself with no assistance (physical, verbal/nonverbal cueing, setup/clean-up)? No. TOILETING HYGIENE - STEP 2: Does the patient need only setup/clean-up assistance from one helper? No. TOILETING HYGIENE - STEP 3: Does the patient need only verbal/nonverbal cueing or touching/steadying/contact guard assistance fro m one helper? Yes. 1. [id number] ADMISSION PERFORMANCE: Supervision or touching assistance CODE: 04 BATHING: Not assessed/no information CODE: - DRESSING - UPPER BODY: Not assessed/no information CODE: - [id number] - COMMENTS: Pt waiting to change during shower time with therapist DRESSING - LOWER BODY: DRESSING - LOWER BODY - STEP 1: Does the patient complete the activity by him/herself with no assistance (physical, verbal/nonverbal cueing, setup/clean-up)? No. DRESSING - LOWER BODY - STEP 2: Does the patient need only setup/clean-up assistance from one helper? No. DRESSING - LOWER BODY - STEP 3: Does the patient need only verbal/nonverbal cueing or touching/steadying/contact guard assistance fro m one helper? Yes. 1. [id number] ADMISSION PERFORMANCE: Supervision or touching assistance CODE: 04 PUTTING ON/TAKING OFF FOOTWEAR: FOOTWEAR - STEP 1: Does the patient complete the activity by him/herself with no assistance (physical, verbal/nonverbal cueing, setup/clean-up)? No. FOOTWEAR - STEP 2: Does the patient need only setup/clean-up assistance from one helper? No. FOOTWEAR - STEP 3: Does the patient need only verbal/nonverbal cueing or touching/steadying/contact guard assistance fro m one helper? Yes. 1. [id number] ADMISSION PERFORMANCE: Supervision or touching assistance CODE: 04 ROLL LEFT AND RIGHT: ROLL LEFT AND RIGHT - STEP 1: Does the patient complete the activity by him/herself with no assistance (physical, verbal/nonverbal cueing, setup/clean-up)? No. ROLL LEFT AND RIGHT - STEP 2: Does the patient need only setup/clean-up assistance from one helper? No. ROLL LEFT AND RIGHT - STEP 3: Does the patient need only verbal/nonverbal cueing or touching/steadying/contact guard assistance fro m one helper? Yes. 1. [id number] ADMISSION PERFORMANCE: Supervision or touching assistance CODE: 04 SIT TO LYING: SIT TO LYING - STEP 1: Does the patient complete the activity by him/herself with no assistance (physical, verbal/nonverbal cueing, setup/clean-up)? No. SIT TO LYING - STEP 2: Does the patient need only setup/clean-up assistance from one helper? No. SIT TO LYING - STEP 3: Does the patient need only verbal/nonverbal cueing or touching/steadying/contact guard assistance fro m one helper? Yes. 1. [id number] ADMISSION PERFORMANCE: Supervision or touching assistance CODE: 04 LYING TO SITTING: LYING TO SITTING ON SIDE OF BED - STEP 1: Does the patient complete the activity by him/herself with no assistance (physical, verbal/nonverbal cueing, setup/clean-up)? No. LYING TO SITTING ON SIDE OF BED - STEP 2: Does the patient need only setup/clean-up assistance from one helper? No. LYING TO SITTING ON SIDE OF BED - STEP 3: Does the patient need only verbal/nonverbal cueing or touching/steadying/contact guard assistance fro m one helper? Yes. 1. [id number] ADMISSION PERFORMANCE: Supervision or touching assistance CODE: 04 SIT TO STAND: SIT TO STAND - STEP 1: Does the patient complete the activity by him/herself with no assistance (physical, verbal/nonverbal cueing, setup/clean-up)? No. SIT TO STAND - STEP 2: Does the patient need only setup/clean-up assistance from one helper? No. SIT TO STAND - STEP 3: Does the patient need only verbal/nonverbal cueing or touching/steadying/contact guard assistance fro m one helper? Yes. 1. [id number] ADMISSION PERFORMANCE: Supervision or touching assistance CODE: 04 TRANSFERS: BED, CHAIR: CHAIR/[id number] TRANSFER - STEP 1: Does the patient complete the activity by him/herself with no assistance (physical, verbal/nonverbal cueing, setup/clean-up)? No. CHAIR/[id number] TRANSFER - STEP 2: Does the patient need only setup/clean-up assistance from one helper? No. CHAIR/[id number]-[id number] TRANSFER - STEP 3: Does the patient need only verbal/nonverbal cueing or touching/steadying/contact guard assistance fro m one helper? Yes. 1. [id number] ADMISSION PERFORMANCE: Supervision or touching assistance CODE: 04 TRANSFER TOILET: TOILET TRANSFER - STEP 1: Does the patient complete the activity by him/herself with no assistance (physical, verbal/nonverbal cueing, setup/clean-up)? No. TOILET TRANSFER - STEP 2: Does the patient need only setup/clean-up assistance from one helper? No. TOILET TRANSFER - STEP 3: Does the patient need only verbal/nonverbal cueing or touching/steadying/contact guard assistance fro m one helper? Yes. 1. [id number] ADMISSION PERFORMANCE: Supervision or touching assistance CODE: 04 TRANSFERS: CAR: Not assessed/no information CODE: - WALK 10 FEET: Not assessed/no information CODE: - 1 STEP (CURB): Not assessed/no information CODE: - PICKING UP OBJECT: Not assessed/no information CODE: - DOES THE PATIENT USE A WHEELCHAIR/SCOOTER? Q1. DOES THE PATIENT USE A WHEELCHAIR/SCOOTER?: Yes CODE: 1 WHEEL 50 FEET WITH TWO TURNS: WHEEL 50 FEET WITH TWO TURNS - STEP 1: Does the patient complete the activity by him/herself with no assistance (physical, verbal/nonverbal cueing, setup/clean-up)? No. WHEEL 50 FEET WITH TWO TURNS - STEP 2: Does the patient need only setup/clean-up assistance from one helper? No. WHEEL 50 FEET WITH TWO TURNS - STEP 3: Does the patient need only verbal/nonverbal cueing or touching/steadying/contact guard assistance fro m one helper? Yes. 1. [id number] ADMISSION PERFORMANCE: Supervision or touching assistance CODE: 04 INDICATE THE TYPE OF WHEELCHAIR/SCOOTER USED: RR1. INDICATE THE TYPE OF WHEELCHAIR/SCOOTER USED.: Manual CODE: 1 WHEEL 150 FEET: Not assessed/no information CODE: - INDICATE THE TYPE OF WHEELCHAIR/SCOOTER USED: SS1. INDICATE THE TYPE OF WHEELCHAIR/SCOOTER USED.: Manual CODE: 1 BLADDER AND BOWEL: H350. BLADDER CONTINENCE (3-DAY ASSESSMENT PERIOD): Always continent (no documented incontinence) CODE: 0 H400. BOWEL CONTINENCE (3-DAY ASSESSMENT PERIOD): Always continent CODE: 0 SIGNATURE PANEL: The following modified sections: 1. [id number] Admission Performance, 1. [id number] Admission Performance, 1. [id number] Admission Performance, 1. JF0714S Admission Performance, Q1. Does the patient use a wheelc hair/scooter?, 1. TW7600J Admission Performance, RR1. Indicate the type of wheelchair/scooter used., Code, SS1. Indicate the type of wheelchair/scooter used., H350. Bladder Continence (3-day assessment period), H400. Bowel Continence (3-day assessment period), 1. HN7580J Admission Performance, [id number] - Comments:, 1. DU0955b Admission Performance, 1. DZ3027m Admission Performance, 1. [id number] Admission Performance, 1. EZ4200J Admission Performance, 1. TR8172V Admission Performance, 1. RR6019Y Admissio n Performance, 1. [id number] Admission Performance, 1. UB7548W Admission Performance were [electronicall y] signed by Lorene La C.N.A. on SatJun 03 2019 14:03:20 GMT-0500 (Central Daylight Time)
[2019-06-03] MEDS: DIPHENHYDRAMINE 25 MG TAB/CAP PO PRN ×2 (14:39→20:46)
[2019-06-03] MEDS: WARFARIN SODIUM 6 MG TAB PO SCH (18:39)
[2019-06-03] MEDS: ACETAMINOPHEN 325 MG TABLET PO PRN (20:37)
[2019-06-03] MEDS: DOXAZOSIN 2 MG TAB PO SCH (20:37)
[2019-06-03] MEDS: RANITIDINE 150 MG TABLET PO SCH (20:38)
[2019-06-03] MEDS: DOCUSATE NA 100 MG CAP PO SCH (20:38)
[2019-06-03] MEDS: guaiFENesin 100 MG/5 ML UCUP PO PRN (20:47)
[2019-06-03] MEDS: MELATONIN 3 MG TABLET PO SCH (20:52)
[2019-06-04 05:58] LABS: Absolute Lymphocytes (CBC) 1.3 K/uL (0.7-4.9); Basophils % 0.6 % (0-1.3); Hematocrit 28.5 % (39.6-49.0); Lymphocytes % 21.6 % (15.3-44.8); MPV 9.3 fL (7.6-11.3); RBC Red Blood Cell Count 3.02 M/uL (4.33-5.43)
[2019-06-04 06:12] LABS: Protime INR 1.7
[2019-06-04 06:41] LABS: Albumin 3.1 g/dL (3.4-5.0); Magnesium 2.3 mg/dL (1.8-2.4); Potassium 4.2 mmol/L (3.5-5.1); Prealbumin 24.9 mg/dL (20-40)
[2019-06-04] MEDS: FEBUXOSTAT 80 MG PO SCH (08:00)
[2019-06-04] MEDS: [UNRECOGNIZED DRUG - OTHER] PO SCH (08:17)
[2019-06-04] MEDS: LIDOCAINE 4% PATCH TOP SCH (08:18)
[2019-06-04] MEDS: SEVELAMER CARBONATE 800 MG TABLET PO SCH ×3 (08:18→17:07)
[2019-06-04] MEDS: DULOXETINE 20 MG CAP PO SCH (08:18)
[2019-06-04] MEDS: CYANOCOBALAMIN 1,000 MCG TAB PO SCH (08:18)
[2019-06-04] MEDS: MULTIVITAMINS,THERAPEUT 1 TAB PO SCH (08:18)
[2019-06-04] MEDS: LORATADINE 10 MG TAB PO SCH (08:19)
[2019-06-04] MEDS: METOPROLOL XL 25 MG TAB PO SCH ×2 (08:19→20:00)
[2019-06-04] MEDS: ACETAMINOPHEN 325 MG TABLET PO PRN (08:20)
--- NOTE | 2019-06-04 10:50 | FAST ---
SHIFT START DATE/TIME: 06/04/2019 07:00 (CDT) SHIFT END DATE/TIME: 06/04/2019 19:00 (CDT) NAME CHELA RUBALCAVA DATE OF : 1935 DATE OF ADMISSION: 05/26/2019 13:40 (CDT) PHONE: AGE: 84 N# [id number] GENDER: Male ENCOUNTER PHYSICIAN: Dr. Gamal Lafleur M.D. ADMISSION DIAGNOSIS: - Orthopaedic Disorders 08 - Unilateral Hip Fracture (08.11) left hip fx. EATING: EATING - STEP 1: Does the patient complete the activity by him/herself with no assistance (physical, verbal/nonverbal cueing, setup/clean-up)? Yes. 1. [id number] ADMISSION PERFORMANCE: Independent CODE: 06 ORAL HYGIENE: ORAL HYGIENE - STEP 1: Does the patient complete the activity by him/herself with no assistance (physical, verbal/nonverbal cueing, setup/clean-up)? Yes. 1. [id number] ADMISSION PERFORMANCE: Independent CODE: 06 TOILETING HYGIENE: TOILETING HYGIENE - STEP 1: Does the patient complete the activity by him/herself with no assistance (physical, verbal/nonverbal cueing, setup/clean-up)? No. TOILETING HYGIENE - STEP 2: Does the patient need only setup/clean-up assistance from one helper? No. TOILETING HYGIENE - STEP 3: Does the patient need only verbal/nonverbal cueing or touching/steadying/contact guard assistance fro m one helper? Yes. 1. [id number] ADMISSION PERFORMANCE: Supervision or touching assistance CODE: 04 BATHING: Not assessed/no information CODE: - DRESSING - UPPER BODY: Not assessed/no information CODE: - DRESSING - LOWER BODY: DRESSING - LOWER BODY - STEP 1: Does the patient complete the activity by him/herself with no assistance (physical, verbal/nonverbal cueing, setup/clean-up)? No. DRESSING - LOWER BODY - STEP 2: Does the patient need only setup/clean-up assistance from one helper? No. DRESSING - LOWER BODY - STEP 3: Does the patient need only verbal/nonverbal cueing or touching/steadying/contact guard assistance fro m one helper? Yes. 1. [id number] ADMISSION PERFORMANCE: Supervision or touching assistance CODE: 04 PUTTING ON/TAKING OFF FOOTWEAR: FOOTWEAR - STEP 1: Does the patient complete the activity by him/herself with no assistance (physical, verbal/nonverbal cueing, setup/clean-up)? No. FOOTWEAR - STEP 2: Does the patient need only setup/clean-up assistance from one helper? No. FOOTWEAR - STEP 3: Does the patient need only verbal/nonverbal cueing or touching/steadying/contact guard assistance fro m one helper? Yes. 1. [id number] ADMISSION PERFORMANCE: Supervision or touching assistance CODE: 04 ROLL LEFT AND RIGHT: ROLL LEFT AND RIGHT - STEP 1: Does the patient complete the activity by him/herself with no assistance (physical, verbal/nonverbal cueing, setup/clean-up)? No. ROLL LEFT AND RIGHT - STEP 2: Does the patient need only setup/clean-up assistance from one helper? No. ROLL LEFT AND RIGHT - STEP 3: Does the patient need only verbal/nonverbal cueing or touching/steadying/contact guard assistance fro m one helper? Yes. 1. [id number] ADMISSION PERFORMANCE: Supervision or touching assistance CODE: 04 SIT TO LYING: SIT TO LYING - STEP 1: Does the patient complete the activity by him/herself with no assistance (physical, verbal/nonverbal cueing, setup/clean-up)? No. SIT TO LYING - STEP 2: Does the patient need only setup/clean-up assistance from one helper? No. SIT TO LYING - STEP 3: Does the patient need only verbal/nonverbal cueing or touching/steadying/contact guard assistance fro m one helper? Yes. 1. [id number] ADMISSION PERFORMANCE: Supervision or touching assistance CODE: 04 LYING TO SITTING: LYING TO SITTING ON SIDE OF BED - STEP 1: Does the patient complete the activity by him/herself with no assistance (physical, verbal/nonverbal cueing, setup/clean-up)? No. LYING TO SITTING ON SIDE OF BED - STEP 2: Does the patient need only setup/clean-up assistance from one helper? No. LYING TO SITTING ON SIDE OF BED - STEP 3: Does the patient need only verbal/nonverbal cueing or touching/steadying/contact guard assistance fro m one helper? Yes. 1. [id number] ADMISSION PERFORMANCE: Supervision or touching assistance CODE: 04 SIT TO STAND: SIT TO STAND - STEP 1: Does the patient complete the activity by him/herself with no assistance (physical, verbal/nonverbal cueing, setup/clean-up)? No. SIT TO STAND - STEP 2: Does the patient need only setup/clean-up assistance from one helper? No. SIT TO STAND - STEP 3: Does the patient need only verbal/nonverbal cueing or touching/steadying/contact guard assistance fro m one helper? Yes. 1. [id number] ADMISSION PERFORMANCE: Supervision or touching assistance CODE: 04 TRANSFERS: BED, CHAIR: CHAIR/[id number] TRANSFER - STEP 1: Does the patient complete the activity by him/herself with no assistance (physical, verbal/nonverbal cueing, setup/clean-up)? No. CHAIR/[id number] TRANSFER - STEP 2: Does the patient need only setup/clean-up assistance from one helper? No. CHAIR/[id number] TRANSFER - STEP 3: Does the patient need only verbal/nonverbal cueing or touching/steadying/contact guard assistance fro m one helper? Yes. 1. [id number] ADMISSION PERFORMANCE: Supervision or touching assistance CODE: 04 TRANSFER TOILET: TOILET TRANSFER - STEP 1: Does the patient complete the activity by him/herself with no assistance (physical, verbal/nonverbal cueing, setup/clean-up)? No. TOILET TRANSFER - STEP 2: Does the patient need only setup/clean-up assistance from one helper? No. TOILET TRANSFER - STEP 3: Does the patient need only verbal/nonverbal cueing or touching/steadying/contact guard assistance fro m one helper? Yes. 1. [id number] ADMISSION PERFORMANCE: Supervision or touching assistance CODE: 04 TRANSFERS: CAR: Not assessed/no information CODE: - WALK 10 FEET: Not assessed/no information CODE: - 1 STEP (CURB): Not assessed/no information CODE: - PICKING UP OBJECT: Not attempted due to medical condition or safety concerns CODE: 88 DOES THE PATIENT USE A WHEELCHAIR/SCOOTER? Q1. DOES THE PATIENT USE A WHEELCHAIR/SCOOTER?: Yes CODE: 1 WHEEL 50 FEET WITH TWO TURNS: WHEEL 50 FEET WITH TWO TURNS - STEP 1: Does the patient complete the activity by him/herself with no assistance (physical, verbal/nonverbal cueing, setup/clean-up)? No. WHEEL 50 FEET WITH TWO TURNS - STEP 2: Does the patient need only setup/clean-up assistance from one helper? No. WHEEL 50 FEET WITH TWO TURNS - STEP 3: Does the patient need only verbal/nonverbal cueing or touching/steadying/contact guard assistance fro m one helper? Yes. 1. [id number] ADMISSION PERFORMANCE: Supervision or touching assistance CODE: 04 INDICATE THE TYPE OF WHEELCHAIR/SCOOTER USED: RR1. INDICATE THE TYPE OF WHEELCHAIR/SCOOTER USED.: Manual CODE: 1 WHEEL 150 FEET: WHEEL 150 FEET - STEP 1: Does the patient complete the activity by him/herself with no assistance (physical, verbal/nonverbal cueing, setup/clean-up)? No. WHEEL 150 FEET - STEP 2: Does the patient need only setup/clean-up assistance from one helper? No. WHEEL 150 FEET - STEP 3: Does the patient need only verbal/nonverbal cueing or touching/steadying/contact guard assistance fro m one helper? Yes. 1. [id number] ADMISSION PERFORMANCE: Supervision or touching assistance CODE: 04 INDICATE THE TYPE OF WHEELCHAIR/SCOOTER USED: SS1. INDICATE THE TYPE OF WHEELCHAIR/SCOOTER USED.: Manual CODE: 1 BLADDER AND BOWEL: H350. BLADDER CONTINENCE (3-DAY ASSESSMENT PERIOD): Always continent (no documented incontinence) CODE: 0 H0350 - COMMENTS: Dialysis Mon-Wed-Fri H400. BOWEL CONTINENCE (3-DAY ASSESSMENT PERIOD): Always continent CODE: 0 SIGNATURE PANEL: The following modified sections: 1. [id number] Admission Performance, 1. [id number] Admission Performance, 1. [id number] Admission Performance, 1. SY2933u Admission Performance, 1. OH7970t Admission Performance, 1. LL3002A Admission Performance, 1. XW6210V Admission Performance, 1. RJ3061E Admission Performance , 1. MH0980Z Admission Performance, 1. LG9835X Admission Performance, 1. MW6153C Admission Performanc e, 1. ND3036L Admission Performance, 1. CG4997D Admission Performance, Q1. Does the patient use a whe elchair/scooter?, 1. OQ4706I Admission Performance, RR1. Indicate the type of wheelchair/scooter used ., 1. ZR1659G Admission Performance, Code, SS1. Indicate the type of wheelchair/scooter used., H350. Bladder Continence (3-day assessment period), H0350 - Comments:, H400. Bowel Continence (3-day assess ment period) were [electronically] signed by Lorene La C.N.A. on SatJun 04 2019 10:48:52 T-050 0 (Central Daylight Time)
--- NOTE | 2019-06-04 11:04 | FAST ---
ENCOUNTER DATE AND TIME: 06/04/2019 08:00 (CDT) NAME CHELA RUBALCAVA DATE OF : 1935 DATE OF ADMISSION: 05/26/2019 13:40 (CDT) PHONE: AGE: 84 N# [id number] GENDER: Male ENCOUNTER PHYSICIAN: Dr. Gamal Lafleur M.D. ADMISSION DIAGNOSIS: - Orthopaedic Disorders 08 - Unilateral Hip Fracture (.11) left hip fx. ROLL LEFT AND RIGHT: ROLL LEFT AND RIGHT - STEP 1: Does the patient complete the activity by him/herself with no assistance (physical, verbal/nonverbal cueing, setup/clean-up)? Yes. 1. [id number] ADMISSION PERFORMANCE: Independent CODE: 06 SIT TO LYING: SIT TO LYING - STEP 1: Does the patient complete the activity by him/herself with no assistance (physical, verbal/nonverbal cueing, setup/clean-up)? No. SIT TO LYING - STEP 2: Does the patient need only setup/clean-up assistance from one helper? No. SIT TO LYING - STEP 3: Does the patient need only verbal/nonverbal cueing or touching/steadying/contact guard assistance fro m one helper? Yes. 1. [id number] ADMISSION PERFORMANCE: Supervision or touching assistance CODE: 04 LYING TO SITTING: LYING TO SITTING ON SIDE OF BED - STEP 1: Does the patient complete the activity by him/herself with no assistance (physical, verbal/nonverbal cueing, setup/clean-up)? No. LYING TO SITTING ON SIDE OF BED - STEP 2: Does the patient need only setup/clean-up assistance from one helper? No. LYING TO SITTING ON SIDE OF BED - STEP 3: Does the patient need only verbal/nonverbal cueing or touching/steadying/contact guard assistance fro m one helper? Yes. 1. [id number] ADMISSION PERFORMANCE: Supervision or touching assistance CODE: 04 SIT TO STAND: SIT TO STAND - STEP 1: Does the patient complete the activity by him/herself with no assistance (physical, verbal/nonverbal cueing, setup/clean-up)? No. SIT TO STAND - STEP 2: Does the patient need only setup/clean-up assistance from one helper? No. SIT TO STAND - STEP 3: Does the patient need only verbal/nonverbal cueing or touching/steadying/contact guard assistance fro m one helper? Yes. 1. [id number] ADMISSION PERFORMANCE: Supervision or touching assistance CODE: 04 TRANSFERS: BED, CHAIR: CHAIR/ALE-IZ-NLPFF TRANSFER - STEP 1: Does the patient complete the activity by him/herself with no assistance (physical, verbal/nonverbal cueing, setup/clean-up)? No. CHAIR/[id number]-[id number] TRANSFER - STEP 2: Does the patient need only setup/clean-up assistance from one helper? No. CHAIR/FIW-JA-IYONM TRANSFER - STEP 3: Does the patient need only verbal/nonverbal cueing or touching/steadying/contact guard assistance fro m one helper? Yes. 1. [id number] ADMISSION PERFORMANCE: Supervision or touching assistance CODE: 04 TRANSFER TOILET: TOILET TRANSFER - STEP 1: Does the patient complete the activity by him/herself with no assistance (physical, verbal/nonverbal cueing, setup/clean-up)? No. TOILET TRANSFER - STEP 2: Does the patient need only setup/clean-up assistance from one helper? No. TOILET TRANSFER - STEP 3: Does the patient need only verbal/nonverbal cueing or touching/steadying/contact guard assistance fro m one helper? Yes. 1. [id number] ADMISSION PERFORMANCE: Supervision or touching assistance CODE: 04 TRANSFERS: CAR: Not attempted due to environmental limitations (e.g., lack of equipment, weather constraints) CODE: 10 WALK 10 FEET: WALK 10 FEET - STEP 1: Does the patient complete the activity by him/herself with no assistance (physical, verbal/nonverbal cueing, setup/clean-up)? No. WALK 10 FEET - STEP 2: Does the patient need only setup/clean-up assistance from one helper? No. WALK 10 FEET - STEP 3: Does the patient need only verbal/nonverbal cueing or touching/steadying/contact guard assistance fro m one helper? Yes. 1. [id number] ADMISSION PERFORMANCE: Supervision or touching assistance CODE: 04 WALK 50 FEET: WALK 50 FEET - STEP 1: Does the patient complete the activity by him/herself with no assistance (physical, verbal/nonverbal cueing, setup/clean-up)? No. WALK 50 FEET - STEP 2: Does the patient need only setup/clean-up assistance from one helper? No. WALK 50 FEET - STEP 3: Does the patient need only verbal/nonverbal cueing or touching/steadying/contact guard assistance fro m one helper? Yes. 1. [id number] ADMISSION PERFORMANCE: Supervision or touching assistance CODE: 04 WALK 150 FEET: WALK 150 FEET - STEP 1: Does the patient complete the activity by him/herself with no assistance (physical, verbal/nonverbal cueing, setup/clean-up)? No. WALK 150 FEET - STEP 2: Does the patient need only setup/clean-up assistance from one helper? No. WALK 150 FEET - STEP 3: Does the patient need only verbal/nonverbal cueing or touching/steadying/contact guard assistance fro m one helper? Yes. 1. [id number] ADMISSION PERFORMANCE: Supervision or touching assistance CODE: 04 WALK 10 FEET UNEVEN: WALKING 10 FEET ON UNEVEN SURFACES - STEP 1: Does the patient complete the activity by him/herself with no assistance (physical, verbal/nonverbal cueing, setup/clean-up)? No. WALKING 10 FEET ON UNEVEN SURFACES - STEP 2: Does the patient need only setup/clean-up assistance from one helper? No. WALKING 10 FEET ON UNEVEN SURFACES - STEP 3: Does the patient need only verbal/nonverbal cueing or touching/steadying/contact guard assistance fro m one helper? Yes. 1. [id number] ADMISSION PERFORMANCE: Supervision or touching assistance CODE: 04 1 STEP (CURB): 1 STEP CURB - STEP 1: Does the patient complete the activity by him/herself with no assistance (physical, verbal/nonverbal cueing, setup/clean-up)? No. 1 STEP CURB - STEP 2: Does the patient need only setup/clean-up assistance from one helper? No. 1 STEP CURB - STEP 3: Does the patient need only verbal/nonverbal cueing or touching/steadying/contact guard assistance fro m one helper? Yes. 1. [id number] ADMISSION PERFORMANCE: Supervision or touching assistance CODE: 04 4 STEPS: 4 STEPS - STEP 1: Does the patient complete the activity by him/herself with no assistance (physical, verbal/nonverbal cueing, setup/clean-up)? No. 4 STEPS - STEP 2: Does the patient need only setup/clean-up assistance from one helper? No. 4 STEPS - STEP 3: Does the patient need only verbal/nonverbal cueing or touching/steadying/contact guard assistance fro m one helper? Yes. 1. [id number] ADMISSION PERFORMANCE: Supervision or touching assistance CODE: 04 12 STEPS: 12 STEPS - STEP 1: Does the patient complete the activity by him/herself with no assistance (physical, verbal/nonverbal cueing, setup/clean-up)? No. 12 STEPS - STEP 2: Does the patient need only setup/clean-up assistance from one helper? No. 12 STEPS - STEP 3: Does the patient need only verbal/nonverbal cueing or touching/steadying/contact guard assistance fro m one helper? Yes. 1. [id number] ADMISSION PERFORMANCE: Supervision or touching assistance CODE: 04 PICKING UP OBJECT: PICKING UP OBJECT - STEP 1: Does the patient complete the activity by him/herself with no assistance (physical, verbal/nonverbal cueing, setup/clean-up)? No. PICKING UP OBJECT - STEP 2: Does the patient need only setup/clean-up assistance from one helper? No. PICKING UP OBJECT - STEP 3: Does the patient need only verbal/nonverbal cueing or touching/steadying/contact guard assistance fro m one helper? Yes. 1. [id number] ADMISSION PERFORMANCE: Supervision or touching assistance CODE: 04 DOES THE PATIENT USE A WHEELCHAIR/SCOOTER? Q1. DOES THE PATIENT USE A WHEELCHAIR/SCOOTER?: Yes CODE: 1 WHEEL 50 FEET WITH TWO TURNS: WHEEL 50 FEET WITH TWO TURNS - STEP 1: Does the patient complete the activity by him/herself with no assistance (physical, verbal/nonverbal cueing, setup/clean-up)? Yes. 1. [id number] ADMISSION PERFORMANCE: Independent CODE: 06 INDICATE THE TYPE OF WHEELCHAIR/SCOOTER USED: RR1. INDICATE THE TYPE OF WHEELCHAIR/SCOOTER USED.: Manual CODE: 1 WHEEL 150 FEET: WHEEL 150 FEET - STEP 1: Does the patient complete the activity by him/herself with no assistance (physical, verbal/nonverbal cueing, setup/clean-up)? Yes. 1. [id number] ADMISSION PERFORMANCE: Independent CODE: 06 INDICATE THE TYPE OF WHEELCHAIR/SCOOTER USED: SS1. INDICATE THE TYPE OF WHEELCHAIR/SCOOTER USED.: Manual CODE: 1 BLADDER AND BOWEL: CODE: EXPR CODE: EXPR SIGNATURE PANEL: The following modified sections: 1. [id number] Admission Performance, 1. BL1484K Admission Performance, 1. AM7540N Admission Performance, 1. JR5458Z Admission Performance, 1. [id number] Admission Performance, 1. PC5779B Admission Performance, 1. HT9035C Admission Performance, 1. YB0330M Admission Performance , 1. RK0076C Admission Performance, 1. IG1667V Admission Performance, 1. MG6939D Admission Performanc e, 1. [id number] Admission Performance, 1. [id number] Admission Performance, 1. OI3878A Admission Performan ce, Q1. Does the patient use a wheelchair/scooter?, 1. SX8504N Admission Performance, RR1. Indicate t he type of wheelchair/scooter used., 1. [id number] Admission Performance, Code, SS1. Indicate the type o f wheelchair/scooter used. were [electronically] signed by Jose G Rosas PT on SatJun 04 2019 11 :04:09 T-0500 (Central Daylight Time)
[2019-06-04] MEDS: DIPHENHYDRAMINE 25 MG TAB/CAP PO PRN ×2 (15:08→20:44)
[2019-06-04] MEDS: POLYETHYL GLY 3350 17 GM/DOSE PO PRN (15:08)
[2019-06-04] MEDS: WARFARIN SODIUM 6 MG TAB PO SCH (17:07)
[2019-06-04] MEDS: RANITIDINE 150 MG TABLET PO SCH (20:00)
[2019-06-04] MEDS: DOCUSATE NA 100 MG CAP PO SCH (20:00)
--- NOTE | 2019-06-04 20:36 | CON ---
Reason For Consultation: Left hip intertrochanteric hip fracture. History Of Present Illness: Mr. Small is an 84-year-old gentleman, known to me from previous orthope dic concerns. He was visiting his son in [place], sustained a fall with a left IT hip fracture. He h ad a long intramedullary loi inserted at [facility] in [place]. has copies of the x- rays and appears I did a very nice job. He has been ambulating partial weightbearing with dislocatio n precautions. Past Medical History: Significant for end-stage renal disease, hypertension. Allergies: ADHESIVE TAPE, CODEINE, MORPHINE. Physical Examination: He is well developed, well nourished. Has a dialysis graft in the left side. Wounds are well healed in the left hip. Neurovascular appears to be intact except for neuropathic changes distally. Weak pulses, but already present. Laboratory Data: X-ray review on the 's phone reveals insertion of what sounds like a [employer]ynthe[employer] lo ng nail. Anatomic reduction of 3-part intertrochanteric. He has not been x-rayed since index proced ure. Plan: Plan will be to obtain a new x-ray and allow weightbearing as tolerated. He can have removal of dislocation precautions at this time. ARIANE/LISA Voice ID: [id number] Report ID: [id number]
[2019-06-04] MEDS: DOXAZOSIN 2 MG TAB PO SCH (20:44)
[2019-06-04] MEDS: MELATONIN 3 MG TABLET PO SCH (20:45)
[2019-06-05] MEDS: MELATONIN 3 MG TABLET PO SCH ×2 (00:08→20:04)
[2019-06-05 07:05] LABS: Protime INR 1.81
[2019-06-05] MEDS: FEBUXOSTAT 80 MG PO SCH (08:00)
[2019-06-05] MEDS: LIDOCAINE 4% PATCH TOP SCH (08:09)
[2019-06-05] MEDS: LORATADINE 10 MG TAB PO SCH (08:10)
[2019-06-05] MEDS: DULOXETINE 20 MG CAP PO SCH (08:10)
[2019-06-05] MEDS: MULTIVITAMINS,THERAPEUT 1 TAB PO SCH (08:10)
[2019-06-05] MEDS: CYANOCOBALAMIN 1,000 MCG TAB PO SCH (08:10)
[2019-06-05] MEDS: ACETAMINOPHEN 325 MG TABLET PO PRN (08:11)
[2019-06-05] MEDS: SEVELAMER CARBONATE 800 MG TABLET PO SCH ×3 (08:11→20:00)
[2019-06-05] MEDS: METOPROLOL XL 25 MG TAB PO SCH ×2 (08:12→20:00)
[2019-06-05] MEDS: [UNRECOGNIZED DRUG - OTHER] PO SCH (08:15)
--- NOTE | 2019-06-05 09:23 | P.RH.PN ---
Estimated Length of Stay: 18 Expected Discharge Date: 06/12/19 Discharge Disposition Plan: Home Family Support: Yes [facility] Goal: Mobility, Transfers, Self Care Vital Signs: Last Vital Signs Temp 97.6 F 06/05/19 06:56 Pulse 60 06/05/19 08:12 Resp 18 06/05/19 06:56 BP 138/59 L 06/05/19 08:12 Pulse Ox 93 06/05/19 06:56 Laboratory: Laboratory Last Values WBC 5.9 K/uL (4.3-10.9) 06/04/19 05:28 RBC 3.02 M/uL (4.33-5.43) L 06/04/19 05:28 Hgb 9.5 g/dL (13.6-17.9) L 06/04/19 05:28 Hct 28.5 % (39.6-49.0) L 06/04/19 05:28 MCV 94.2 fL (80-100) 06/04/19 05:28 MCH 31.5 pg (27.0-35.0) 06/04/19 05:28 MCHC 33.4 g/dL (32.0-36.0) 06/04/19 05:28 RDW 15.7 % (12.1-15.2) H 06/04/19 05:28 Plt Count 129 K/uL (152-406) L 06/04/19 05:28 MPV 9.3 fL (7.6-11.3) 06/04/19 05:28 Neutrophils % 63.1 % (41.7-73.7) 06/04/19 05:28 Lymphocytes % 21.6 % (15.3-44.8) 06/04/19 05:28 Monocytes % 11.3 % (3.3-12.3) 06/04/19 05:28 Eosinophils % 3.4 % (0-4.4) 06/04/19 05:28 Basophils % 0.6 % (0-1.3) 06/04/19 05:28 Absolute Neutrophils 3.7 K/uL (1.8-8.0) 06/04/19 05:28 Absolute Lymphocytes 1.3 K/uL (0.7-4.9) 06/04/19 05:28 Absolute Monocytes 0.7 K/uL (0.1-1.3) 06/04/19 05:28 Absolute Eosinophils 0.2 K/uL (0-0.5) 06/04/19 05:28 Absolute Basophils 0.0 K/uL (0-0.5) 06/04/19 05:28 PT 20.9 SECONDS (9.5-12.5) H 06/05/19 06:50 INR 1.81 06/05/19 06:50 pH 7.36 (7.35-7.45) 05/30/19 17:30 pCO2 46.5 mmHG (35-45) H 05/30/19 17:30 pO2 68.4 mmHG (75-100) L 05/30/19 17:30 HCO3 25.6 mmol/L (22-28) 05/30/19 17:30 Base Excess 0.8 mmol/L 05/30/19 17:30 Oxyhemoglobin 89.5 % (94-97) L 05/30/19 17:30 ABG O2 Sat (Measured) 91.6 % (92-98.5) L 05/30/19 17:30 ABG Carboxyhemoglobin 1.6 % (0-1.5) H 05/30/19 17:30 ABG Methemoglobin 0.7 % (0-1.5) 05/30/19 17:30 Other Total Hgb 10.1 g/dl (12-18) L 05/30/19 17:30 Inspired O2 21.0 % 05/30/19 17:30 Sodium 137 mmol/L (136-145) 06/04/19 05:28 Potassium 4.2 mmol/L (3.5-5.1) 06/04/19 05:28 Chloride 104 mmol/L (98-107) 06/04/19 05:28 Carbon Dioxide 26 mmol/L (21-32) 06/04/19 05:28 BUN 50 mg/dL (7-18) H 06/04/19 05:28 Creatinine 6.90 mg/dL (0.55-1.3) H* D 06/04/19 05:28 Estimated GFR 8 mL/min (=/>90) L 06/04/19 05:28 Glucose 81 mg/dL (74-106) 06/04/19 05:28 POC Glucose 100 mg/dl (65-120) 05/30/19 17:11 Calcium 8.9 mg/dL (8.5-10.1) 06/04/19 05:28 Magnesium 2.3 mg/dL (1.8-2.4) 06/04/19 05:28 Ammonia 17 umol/L (19-54) L 05/30/19 18:01 Albumin 3.1 g/dL (3.4-5.0) L 06/04/19 05:28 Prealbumin 24.9 mg/dL (20-40) 06/04/19 05:28 Urine Color Yellow 05/27/19 01:15 Urine Appearance Clear 05/27/19 01:15 Urine pH 6.5 (5.0-7.0) 05/27/19 01:15 Ur Specific [place] 1.020 (1.005-1.030) 05/27/19 01:15 Urine Ketones Negative (NEG) 05/27/19 01:15 Urine Blood Trace (NEG) H 05/27/19 01:15 Urine Nitrite Negative (NEG) 05/27/19 01:15 Urine Bilirubin Negative (NEG) 05/27/19 01:15 Urine Urobilinogen 0.2 mg/dL (0.2-1.0) 05/27/19 01:15 Ur Leukocyte Esterase Negative (NEG) 05/27/19 01:15 Urine RBC <5 /HPF (NONE SEEN) 05/27/19 01:15 Urine WBC <5 /HPF (<5) 05/27/19 01:15 Ur Squamous Epith Cells <5 /HPF (NONE SEEN) 05/27/19 01:15 Ur Urothelial Cells <5 /HPF (NONE SEEN) 05/27/19 01:15 Urine Bacteria <20 /HPF (NONE SEEN) 05/27/19 01:15 Urine Culture Reflexed Not needed 05/27/19 01:15 Urine Glucose Trace (NEG) 05/27/19 01:15 Urine Total Protein 3+ (NEG) H 05/27/19 01:15 Weight: 253 lb 7 oz Wound Present: No Closed Surgical Incision Present: No Negative Pressure Wound Therapy Present: No Physician Update: His INR is mildly low at 1.8. Will increase coumadin to 6 mg daily and today a total of 8 mg. Hgb is mildly low on hemocyte. He is standby to modified independent. Going 250' with a rolling walker. His is working well with him. He will get another week of therpy. He is standby to modified independence with ADL. He is working well with speech therapy. He repeat x-rays show good healing. He head CT is suggest the possibility of normal pressure hydrocephalus. May consider a high volume LP after followup outpatient. He should be ready for home. Medical Issues: Patient is a dialysis patient, no urine output. Bowel is always continent. Pain Issues: Tylenol 650mg Daily PRN PO Functional Improvement: pt is demonstrating progress. At this time he is SBA; however, with further training he can become Independent with the use of an AD. pt is improving his overall stability during ambulation. pt was demonstrating improved safety awareness today as well. With another week, pt will be more successfeul with home discharge and likelihood of homespital re- admit will be mitigated. Functional Improvement Occupational Therapy: Pt can benifit with further therapy to address pt's overall weakness in the upper and lower extremities, cont to increase pt's UB strength and ROM for adl tasks. Cont to educate and train pt on using A/E and energy conservation techniques for following hip precautions, cont to increase pt's static standing balance for bathing and for functional transfers. cont with the POC and the goals by the supervising OTR. Speech Therapy Update: Patient has demonstrated significant progress in the last few days on his overall cognitive-communication abilities. Patient has demonstrated improved ability to participate and engage in social interactions and motivated during therapy sessions as well as completing recommended exercises/practice outside of therapy. Patient cont to be a huge support to him and patient has demonstrated improved mood and motivation. Patient is at SUPV for Auditory Comprehension 2/2 hearing loss, patient is at SUPV to MOD I for Verbal Expression, MOD I for Social Interaction, SUPV to MOD I for Problem Solving, and SUPV for Memory. At this time patient requires close supv and verbal cues to adhere to safety and hip precautions. Summary: Patient's care plan and care home goals have been reviewed and revised as necessary. Please see the Rehabilitation Signature page for all necessary signatures.
--- NOTE | 2019-06-05 13:44 | RAD REPORT ---
EXAM DESCRIPTION: RAD - Hip Left 2 View - 06/05/2019 1:29 pm CLINICAL HISTORY: Left hip pain FINDINGS: Compression screw and intramedullary loi affix a proximal left femoral fracture Heterotopic bone formation is present about the fracture site. No dislocation. .
--- NOTE | 2019-06-05 14:23 | FAST ---
ENCOUNTER DATE AND TIME: 06/05/2019 08:00 (CDT) NAME CHELA RUBALCAVA DATE OF : 1935 DATE OF ADMISSION: 05/26/2019 13:40 (CDT) PHONE: AGE: 84 N# [id number] GENDER: Male ENCOUNTER PHYSICIAN: Dr. Gamal Lafleur M.D. ADMISSION DIAGNOSIS: - Orthopaedic Disorders 08 - Unilateral Hip Fracture (08.11) left hip fx. EATING: Not assessed/no information CODE: - ORAL HYGIENE: ORAL HYGIENE - STEP 1: Does the patient complete the activity by him/herself with no assistance (physical, verbal/nonverbal cueing, setup/clean-up)? Yes. 1. [id number] ADMISSION PERFORMANCE: Independent CODE: 06 TOILETING HYGIENE: Not assessed/no information CODE: - BATHING: SHOWER/BATHE SELF - STEP 1: Does the patient complete the activity by him/herself with no assistance (physical, verbal/nonverbal cueing, setup/clean-up)? Yes. 1. [id number] ADMISSION PERFORMANCE: Independent CODE: 06 DRESSING - UPPER BODY: DRESSING - UPPER BODY - STEP 1: Does the patient complete the activity by him/herself with no assistance (physical, verbal/nonverbal cueing, setup/clean-up)? Yes. 1. [id number] ADMISSION PERFORMANCE: Independent CODE: 06 DRESSING - LOWER BODY: DRESSING - LOWER BODY - STEP 1: Does the patient complete the activity by him/herself with no assistance (physical, verbal/nonverbal cueing, setup/clean-up)? No. DRESSING - LOWER BODY - STEP 2: Does the patient need only setup/clean-up assistance from one helper? No. DRESSING - LOWER BODY - STEP 3: Does the patient need only verbal/nonverbal cueing or touching/steadying/contact guard assistance fro m one helper? Yes. 1. [id number] ADMISSION PERFORMANCE: Supervision or touching assistance CODE: 04 PUTTING ON/TAKING OFF FOOTWEAR: FOOTWEAR - STEP 1: Does the patient complete the activity by him/herself with no assistance (physical, verbal/nonverbal cueing, setup/clean-up)? No. FOOTWEAR - STEP 2: Does the patient need only setup/clean-up assistance from one helper? No. FOOTWEAR - STEP 3: Does the patient need only verbal/nonverbal cueing or touching/steadying/contact guard assistance fro m one helper? Yes. 1. [id number] ADMISSION PERFORMANCE: Supervision or touching assistance CODE: 04 DOES THE PATIENT USE A WHEELCHAIR/SCOOTER? CODE: EXPR INDICATE THE TYPE OF WHEELCHAIR/SCOOTER USED: CODE: EXPR INDICATE THE TYPE OF WHEELCHAIR/SCOOTER USED: CODE: EXPR BLADDER AND BOWEL: CODE: EXPR CODE: EXPR SIGNATURE PANEL: The following modified sections: 1. [id number] Admission Performance, 1. [id number] Admission Performance, 1. [id number] Admission Performance, 1. [id number] Admission Performance, 1. [id number] Admission Performance were [electronically] signed by EDIHT Cox on SatJun 05 2019 14:22:19 T-0500 (Central Daylight Time)
[2019-06-05] MEDS ORDERED: WARFARIN SODIUM 3 MG TAB PO SCH (17:00)
[2019-06-05] MEDS ORDERED: WARFARIN SODIUM 6 MG TAB PO SCH (17:00)
[2019-06-05] MEDS: RANITIDINE 150 MG TABLET PO SCH (20:00)
[2019-06-05] MEDS: DOCUSATE NA 100 MG CAP PO SCH (20:00)
[2019-06-05] MEDS: DOXAZOSIN 2 MG TAB PO SCH (20:00)
[2019-06-05] MEDS: DIPHENHYDRAMINE 25 MG TAB/CAP PO SCH (20:03)
--- NOTE | 2019-06-05 21:27 | P.PN ---
Date of Service: 06/05/19 Vital Signs Temp Pulse Resp BP Pulse Ox 97.6 F 69 18 159/72 H 97 06/05/19 19:33 06/05/19 20:00 06/05/19 19:33 06/05/19 20:00 06/05/19 19:33 Medications Acetaminophen (Tylenol -Tablet) 650 mg PO DAILY PRN PRN Reason: Pain scale 5-7 (Moderate) Stop: 06/26/19 08:01 Last Admin: 06/05/19 08:11 Dose: 650 mg Bisacodyl (Dulcolax) 10 mg [place] DAILY PRN PRN Reason: CONSTIPATION Stop: 06/30/19 11:35 Last Admin: 05/31/19 12:45 Dose: 10 mg Cyanocobalamin (Vitamin B-12) 2,000 mcg PO DAILY [facility] Stop: 06/26/19 08:01 Last Admin: 06/05/19 08:10 Dose: 2,000 mcg Diphenhydramine HCl (Benadryl Tab/Cap) 25 mg PO DAILY [facility] Stop: 07/06/19 08:01 Diphenhydramine HCl (Benadryl Tab/Cap) 50 mg PO BEDTIME [facility] Stop: 07/05/19 21:01 Last Admin: 06/05/19 20:03 Dose: 50 mg Docusate Sodium (Colace Cap) 100 mg PO BEDTIME [facility] Stop: 06/25/19 21:01 Last Admin: 06/05/19 20:00 Dose: 100 mg Doxazosin Mesylate (Cardura) 2 mg PO BEDTIME [facility] Stop: 06/28/19 21:46 Last Admin: 06/05/19 20:00 Dose: 2 mg Duloxetine HCl (Cymbalta Delayed Release Pellets) 20 mg PO DAILY [facility] Stop: 06/29/19 08:01 Last Admin: 06/05/19 08:10 Dose: 20 mg Ergocalciferol (Drisdol) 50,000 unit PO Cristina@0800 [facility] Stop: 06/30/19 08:01 Last Admin: 05/31/19 08:08 Dose: 50,000 unit Guaifenesin (Robitussin 100mg/5ml) 100 mg PO QID PRN PRN Reason: COUGH Stop: 06/30/19 11:34 Last Admin: 06/03/19 20:47 Dose: 100 mg Heparin Sodium (Porcine) (Heparin 1,000 Units/Ml) 2,000 unit IV EVERY HD [facility] Stop: 06/10/19 15:01 Last Admin: 06/05/19 16:10 Dose: 2,000 unit Heparin Sodium (Porcine) (Heparin 1,000 Units/Ml) 6,000 unit IV EVERY HD PRN PRN Reason: FLUSH AFTER EACH USE Home Med (I-Caps With Lutein-Gard[place] 3) 1 cap PO DAILY [facility] Stop: 06/26/19 08:01 Last Admin: 06/05/19 08:15 Dose: 1 cap Home Med (Lysine 500mg) 1 tab PO DAILY [facility] Stop: 06/26/19 08:01 Last Admin: 06/05/19 08:13 Dose: 1 tab Home Med (Febuxostat 80mg) 1 tab PO DAILY [facility] Stop: 06/26/19 08:01 Last Admin: 06/05/19 08:00 Dose: Not Given Albumin Human (Albumin 25%) 50 mls @ 100 mls/hr IV EVERY HD [facility] Stop: 06/25/19 22:01 Lidocaine (Lidoderm 5% Patch) 2 patch TOP DAILY [facility] Stop: 07/02/19 08:01 Last Admin: 06/05/19 08:09 Dose: 2 patch Loratadine (Claritin) 10 mg PO DAILY [facility] Stop: 06/26/19 08:01 Last Admin: 06/05/19 08:10 Dose: 10 mg Mannitol (Mannitol 12.5 Gm/50 Ml Vial) 12.5 gm IV EVERY HD PRN PRN Reason: Titrate to SBP (MUST DEFINE) Stop: 06/25/19 21:22 Melatonin (Melatonin) 3 mg PO BEDTIME [facility] Stop: 06/27/19 21:01 Last Admin: 06/05/19 20:04 Dose: Not Given Metoprolol Succinate (Toprol Xl) 25 mg PO BID [facility] Stop: 06/25/19 20:01 Last Admin: 06/05/19 20:00 Dose: 25 mg Polyethylene Glycol (Glycolax) 17 gm PO DAILY PRN PRN Reason: CONSTIPATION Stop: 06/25/19 15:51 Last Admin: 06/04/19 15:08 Dose: 17 gm Ranitidine HCl (Zantac) 150 mg PO BEDTIME [facility] Stop: 06/25/19 21:01 Last Admin: 06/05/19 20:00 Dose: 150 mg Sevelamer Carbonate (Renvela) 1,600 mg PO TIDWM [facility] Stop: 06/25/19 17:01 Last Admin: 06/05/19 20:00 Dose: 1,600 mg Vitamin B Complex/Vit C/Folic Acid (Nephro-Tenzin) 1 tab PO DAILY [facility] Stop: 06/26/19 08:01 Last Admin: 06/05/19 08:10 Dose: 1 tab Warfarin Sodium (Coumadin) 6 mg PO DAILY 5 PM [facility] Stop: 07/06/19 17:01 Warfarin Sodium (Coumadin) 1 mg PO DAILY 5 PM [facility] Stop: 07/06/19 17:01 Lab Results (last 24 hrs) 06/05/19 06:50: PT 20.9 H, INR 1.81 Microbiology Results 05/27/19 01:15 Clean Catch Urine [place] Count - Final 05/27/19 01:15 Clean Catch Urine - Final No growth. Assessment/ Plan: Nephrology. Feeling better and stronger. Working well with PT. CPS stable without CP or SOB. No acute events overnight. Vitals, medications, blood work and imaging reviewed in the chart. General: In no apparent distress, Oriented x3, Cooperative HEENT: Atraumatic Neck: Supple Respiratory: Clear to auscultation bilaterally Cardiovascular: Regular rate/rhythm, No rubs, Edema Gastrointestinal: Soft and benign, No guarding Musculoskeletal: No clubbing, No contractures Integumentary: No rashes, Other (LE Venous Stasis) Neurological: Normal speech Blood work reviewed in the chart. BUN 79; Cr 9.95; Hgb 9.6 Imagings Data: EXAM DESCRIPTION: MRI - Lumbar Spine Wo Con- 05/25/2019 7:19 pm CLINICAL HISTORY: Acute BL LE Weakness. Hx RCC. COMPARISON: Abdomen Pelvis W/Wo Contrast dated 03/10/2018 FINDINGS: Vertebral body heights are within normal limits. Blooming artifact is present the anterior aspect of the lumbar. No aggressive marrow pattern is observed. No fracture is suspected. The conus medullaris terminates at a normal level. No thickening of the cauda equina or clumping of nerve roots seen. L1-2 level: No significant findings. L2-3 level: Mild posterior disc bulge with mild facet and ligamentum flavum hypertrophy. Mild narrowing of the anterior inferior aspects of both exit foramina. L3-4 level: Asymmetric posterior disc bulge to the right is seen with moderate facet hypertrophy, greater on the right. Mild narrowing of the right lateral recess and exit foramina. L4-5 level: Mild posterior disc bulge with mild facet and ligamentum flavum hypertrophy. No canal or foraminal stenosis. L5-S1 level: Mild posterior disc bulge with mild facet and ligamentum hypertrophy. No canal or foraminal stenosis. Significant facet hypertrophy is present a small external synovial cyst on the right measuring 6 mm. 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 No severe canal or foraminal stenosis at any level is seen. Conclusions/Impression: A/ Severe LE weakness of unclear etiology. Mild progressive dementia. ESRD on HD. Hyperkalemia. HTN with CKD/ CHF. Diastolic CHF, chronic. Anemia in CKD. PRASANNA/ Secondary HyperPTH. Bradycardia on metoprolol. P/ Continue current POC and medications. Continue HD TIW. Seen and examined on HD. No NSAIDs. AM labs. Daily weight. Aggressive PT as tolerated.
[2019-06-05] MEDS: EPOETIN ALFA 10,000 UNIT/ML VIAL SQ SCH (22:00)
--- NOTE | 2019-06-06 02:26 | FAST ---
SHIFT START DATE/TIME: 06/04/2019 19:00 (CDT) SHIFT END DATE/TIME: 06/05/2019 07:00 (CDT) NAME CHELA RUBALCAVA DATE OF : 1935 DATE OF ADMISSION: 05/26/2019 13:40 (CDT) PHONE: AGE: 84 N# [id number] GENDER: Male ENCOUNTER PHYSICIAN: Dr. Gamal Lafleur M.D. ADMISSION DIAGNOSIS: - Orthopaedic Disorders 08 - Unilateral Hip Fracture (08.11) left hip fx. EATING: Not assessed/no information CODE: - ORAL HYGIENE: Not assessed/no information CODE: - TOILETING HYGIENE: TOILETING HYGIENE - STEP 1: Does the patient complete the activity by him/herself with no assistance (physical, verbal/nonverbal cueing, setup/clean-up)? No. TOILETING HYGIENE - STEP 2: Does the patient need only setup/clean-up assistance from one helper? No. TOILETING HYGIENE - STEP 3: Does the patient need only verbal/nonverbal cueing or touching/steadying/contact guard assistance fro m one helper? Yes. 1. [id number] ADMISSION PERFORMANCE: Supervision or touching assistance CODE: 04 BATHING: Not assessed/no information CODE: - DRESSING - UPPER BODY: Not assessed/no information CODE: - DRESSING - LOWER BODY: Not assessed/no information CODE: - PUTTING ON/TAKING OFF FOOTWEAR: Not assessed/no information CODE: - ROLL LEFT AND RIGHT: Not assessed/no information CODE: - SIT TO LYING: Not assessed/no information CODE: - LYING TO SITTING: Not assessed/no information CODE: - SIT TO STAND: Not assessed/no information CODE: - TRANSFERS: BED, CHAIR: Not assessed/no information CODE: - TRANSFER TOILET: Not assessed/no information CODE: - TRANSFERS: CAR: Not assessed/no information CODE: - WALK 10 FEET: Not assessed/no information CODE: - 1 STEP (CURB): Not assessed/no information CODE: - PICKING UP OBJECT: Not assessed/no information CODE: - DOES THE PATIENT USE A WHEELCHAIR/SCOOTER? Q1. DOES THE PATIENT USE A WHEELCHAIR/SCOOTER?: Yes CODE: 1 WHEEL 50 FEET WITH TWO TURNS: Not assessed/no information CODE: - INDICATE THE TYPE OF WHEELCHAIR/SCOOTER USED: CODE: EXPR WHEEL 150 FEET: Not assessed/no information CODE: - INDICATE THE TYPE OF WHEELCHAIR/SCOOTER USED: CODE: EXPR BLADDER AND BOWEL: H350. BLADDER CONTINENCE (3-DAY ASSESSMENT PERIOD): Always continent (no documented incontinence) CODE: 0 H400. BOWEL CONTINENCE (3-DAY ASSESSMENT PERIOD): Always continent CODE: 0
[2019-06-06 05:27] VITALS: BMI 31.8
[2019-06-06 06:47] LABS: Protime INR 1.97
[2019-06-06] MEDS: FEBUXOSTAT 80 MG PO SCH (08:00)
[2019-06-06] MEDS: SEVELAMER CARBONATE 800 MG TABLET PO SCH ×3 (08:10→17:21)
[2019-06-06] MEDS: DULOXETINE 20 MG CAP PO SCH (08:11)
[2019-06-06] MEDS: DIPHENHYDRAMINE 25 MG TAB/CAP PO SCH ×2 (08:11→20:41)
[2019-06-06] MEDS: MULTIVITAMINS,THERAPEUT 1 TAB PO SCH (08:11)
[2019-06-06] MEDS: LORATADINE 10 MG TAB PO SCH (08:12)
[2019-06-06] MEDS: METOPROLOL XL 25 MG TAB PO SCH ×2 (08:12→20:39)
[2019-06-06] MEDS: CYANOCOBALAMIN 1,000 MCG TAB PO SCH (08:13)
[2019-06-06] MEDS: [UNRECOGNIZED DRUG - OTHER] PO SCH (08:14)
[2019-06-06] MEDS: LIDOCAINE 4% PATCH TOP SCH (09:01)
[2019-06-06] MEDS: ACETAMINOPHEN 325 MG TABLET PO PRN (12:13)
[2019-06-06] MEDS: WARFARIN SODIUM 6 MG TAB PO SCH (17:21)
[2019-06-06] MEDS: WARFARIN SODIUM 1 MG TAB PO SCH (17:21)
[2019-06-06] MEDS: DOCUSATE NA 100 MG CAP PO SCH (20:39)
[2019-06-06] MEDS: MELATONIN 3 MG TABLET PO SCH (20:39)
[2019-06-06] MEDS: DOXAZOSIN 2 MG TAB PO SCH (20:40)
[2019-06-06] MEDS: RANITIDINE 150 MG TABLET PO SCH (20:42)
[2019-06-06] MEDS: EPOETIN ALFA 10,000 UNIT/ML VIAL SQ SCH (21:04)
[2019-06-07 07:17] LABS: Protime INR 2.22
[2019-06-07] MEDS: FEBUXOSTAT 80 MG PO SCH (07:24)
[2019-06-07] MEDS: EPOETIN ALFA 10,000 UNIT/ML VIAL SQ SCH (07:29)
[2019-06-07] MEDS: LIDOCAINE 4% PATCH TOP SCH (07:30)
[2019-06-07] MEDS: MULTIVITAMINS,THERAPEUT 1 TAB PO SCH (08:10)
[2019-06-07] MEDS: DULOXETINE 20 MG CAP PO SCH (08:10)
[2019-06-07] MEDS: [UNRECOGNIZED DRUG - OTHER] PO SCH (08:10)
[2019-06-07] MEDS: SEVELAMER CARBONATE 800 MG TABLET PO SCH ×2 (08:10→11:53)
[2019-06-07] MEDS: CYANOCOBALAMIN 1,000 MCG TAB PO SCH (08:10)
[2019-06-07] MEDS: DRISDOL (VITAMIN D=ERGOCALCIFEROL) 50000 UNIT CAP PO SCH (08:11)
[2019-06-07] MEDS: METOPROLOL XL 25 MG TAB PO SCH ×2 (08:11→19:38)
[2019-06-07] MEDS: DIPHENHYDRAMINE 25 MG TAB/CAP PO SCH ×2 (08:11→20:42)
[2019-06-07] MEDS: LORATADINE 10 MG TAB PO SCH (08:11)
[2019-06-07] MEDS: CA ACETATE 667 MG CAP PO SCH (16:50)
[2019-06-07] MEDS: WARFARIN SODIUM 6 MG TAB PO SCH (16:51)
[2019-06-07] MEDS: WARFARIN SODIUM 1 MG TAB PO SCH (16:51)
[2019-06-07] MEDS: RANITIDINE 150 MG TABLET PO SCH (20:41)
[2019-06-07] MEDS: DOCUSATE NA 100 MG CAP PO SCH (20:41)
[2019-06-07] MEDS: DOXAZOSIN 2 MG TAB PO SCH (20:41)
[2019-06-07] MEDS: MELATONIN 3 MG TABLET PO SCH (20:42)
--- NOTE | 2019-06-07 21:22 | P.PN ---
Date of Service: 06/07/19 Vital Signs Temp Pulse Resp BP Pulse Ox 96.8 F 61 14 176/72 H 95 06/07/19 07:32 06/07/19 20:41 06/07/19 07:32 06/07/19 20:41 06/07/19 07:32 Medications Acetaminophen (Tylenol -Tablet) 650 mg PO DAILY PRN PRN Reason: Pain scale 5-7 (Moderate) Stop: 06/26/19 08:01 Last Admin: 06/06/19 12:13 Dose: 650 mg Bisacodyl (Dulcolax) 10 mg [place] DAILY PRN PRN Reason: CONSTIPATION Stop: 06/30/19 11:35 Last Admin: 05/31/19 12:45 Dose: 10 mg Calcium Acetate (Phoslo) 1,334 mg PO TIDWM [facility] Stop: 07/07/19 17:01 Last Admin: 06/07/19 16:50 Dose: 1,334 mg Cyanocobalamin (Vitamin B-12) 2,000 mcg PO DAILY [facility] Stop: 06/26/19 08:01 Last Admin: 06/07/19 08:10 Dose: 2,000 mcg Diphenhydramine HCl (Benadryl Tab/Cap) 25 mg PO DAILY [facility] Stop: 07/06/19 08:01 Last Admin: 06/07/19 08:11 Dose: 25 mg Diphenhydramine HCl (Benadryl Tab/Cap) 50 mg PO BEDTIME [facility] Stop: 07/05/19 21:01 Last Admin: 06/07/19 20:42 Dose: 50 mg Docusate Sodium (Colace Cap) 100 mg PO BEDTIME [facility] Stop: 06/25/19 21:01 Last Admin: 06/07/19 20:41 Dose: 100 mg Doxazosin Mesylate (Cardura) 2 mg PO BEDTIME [facility] Stop: 06/28/19 21:46 Last Admin: 06/07/19 20:41 Dose: 2 mg Duloxetine HCl (Cymbalta Delayed Release Pellets) 20 mg PO DAILY [facility] Stop: 06/29/19 08:01 Last Admin: 06/07/19 08:10 Dose: 20 mg Ergocalciferol (Drisdol) 50,000 unit PO Cristina@0800 [facility] Stop: 06/30/19 08:01 Last Admin: 06/07/19 08:11 Dose: 50,000 unit Guaifenesin (Robitussin 100mg/5ml) 100 mg PO QID PRN PRN Reason: COUGH Stop: 06/30/19 11:34 Last Admin: 06/03/19 20:47 Dose: 100 mg Heparin Sodium (Porcine) (Heparin 1,000 Units/Ml) 2,000 unit IV EVERY HD [facility] Stop: 06/14/19 16:01 Heparin Sodium (Porcine) (Heparin 1,000 Units/Ml) 6,000 unit IV EVERY HD PRN PRN Reason: FLUSH AFTER EACH USE Home Med (I-Caps With Lutein-[place] 3) 1 cap PO DAILY [facility] Stop: 06/26/19 08:01 Last Admin: 06/07/19 08:10 Dose: 1 cap Home Med (Lysine 500mg) 1 tab PO DAILY [facility] Stop: 06/26/19 08:01 Last Admin: 06/07/19 08:12 Dose: 1 tab Home Med (Febuxostat 80mg) 1 tab PO DAILY [facility] Stop: 06/26/19 08:01 Last Admin: 06/07/19 07:24 Dose: Not Given Albumin Human (Albumin 25%) 50 mls @ 100 mls/hr IV EVERY HD [facility] Stop: 06/25/19 22:01 Loratadine (Claritin) 10 mg PO DAILY [facility] Stop: 06/26/19 08:01 Last Admin: 06/07/19 08:11 Dose: 10 mg Mannitol (Mannitol 12.5 Gm/50 Ml Vial) 12.5 gm IV EVERY HD PRN PRN Reason: Titrate to SBP (MUST DEFINE) Stop: 06/25/19 21:22 Melatonin (Melatonin) 3 mg PO BEDTIME [facility] Stop: 06/27/19 21:01 Last Admin: 06/07/19 20:42 Dose: 3 mg Metoprolol Succinate (Toprol Xl) 25 mg PO BID [facility] Stop: 06/25/19 20:01 Last Admin: 06/07/19 19:38 Dose: 25 mg Lidocaine 4% Patch 2 ea TOP DAILY [facility] Stop: 07/07/19 08:01 Last Admin: 06/07/19 07:30 Dose: 2 ea Polyethylene Glycol (Glycolax) 17 gm PO DAILY PRN PRN Reason: CONSTIPATION Stop: 06/25/19 15:51 Last Admin: 10/17/19 15:08 Dose: 17 gm Ranitidine HCl (Zantac) 150 mg PO BEDTIME [facility] Stop: 06/25/19 21:01 Last Admin: 06/07/19 20:41 Dose: 150 mg Vitamin B Complex/Vit C/Folic Acid (Nephro-Tenzin) 1 tab PO DAILY [facility] Stop: 06/26/19 08:01 Last Admin: 06/07/19 08:10 Dose: 1 tab Warfarin Sodium (Coumadin) 6 mg PO DAILY 5 PM [facility] Stop: 07/06/19 17:01 Last Admin: 06/07/19 16:51 Dose: 6 mg Warfarin Sodium (Coumadin) 1 mg PO DAILY 5 PM [facility] Stop: 07/06/19 17:01 Last Admin: 06/07/19 16:51 Dose: 1 mg Lab Results (last 24 hrs) 06/07/19 06:44: PT 25.4 H, INR 2.22 Microbiology Results 05/27/19 01:15 Clean Catch Urine [place] Count - Final 05/27/19 01:15 Clean Catch Urine - Final No growth. Assessment/ Plan: Nephrology. Feeling better and stronger. Working well with PT. CPS stable without CP or SOB. No acute events overnight. Reports persistent diffuse itching. Vitals, medications, blood work and imaging reviewed in the chart. General: In no apparent distress, Oriented x3, Cooperative HEENT: Atraumatic Neck: Supple Respiratory: Clear to auscultation bilaterally Cardiovascular: Regular rate/rhythm, No rubs, Edema Gastrointestinal: Soft and benign, No guarding Musculoskeletal: No clubbing, No contractures Integumentary: No rashes, Other (LE Venous Stasis) Neurological: Normal speech Blood work reviewed in the chart. BUN 79; Cr 9.95; Hgb 9.6 Imagings Data: EXAM DESCRIPTION: MRI - Lumbar Spine Wo Con- 05/25/2019 7:19 pm CLINICAL HISTORY: Acute BL LE Weakness. Hx RCC. COMPARISON: Abdomen Pelvis W/Wo Contrast dated 03/10/2018 FINDINGS: Vertebral body heights are within normal limits. Blooming artifact is present the anterior aspect of the lumbar. No aggressive marrow pattern is observed. No fracture is suspected. The conus medullaris terminates at a normal level. No thickening of the cauda equina or clumping of nerve roots seen. L1-2 level: No significant findings. L2-3 level: Mild posterior disc bulge with mild facet and ligamentum flavum hypertrophy. Mild narrowing of the anterior inferior aspects of both exit foramina. L3-4 level: Asymmetric posterior disc bulge to the right is seen with moderate facet hypertrophy, greater on the right. Mild narrowing of the right lateral recess and exit foramina. L4-5 level: Mild posterior disc bulge with mild facet and ligamentum flavum hypertrophy. No canal or foraminal stenosis. L5-S1 level: Mild posterior disc bulge with mild facet and ligamentum hypertrophy. No canal or foraminal stenosis. Significant facet hypertrophy is present a small external synovial cyst on the right measuring 6 mm. 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 No severe canal or foraminal stenosis at any level is seen. Conclusions/Impression: A/ Severe LE weakness of unclear etiology. Mild progressive dementia. ESRD on HD. Hyperkalemia. HTN with CKD/ CHF. Diastolic CHF, chronic. Anemia in CKD. PRASANNA/ Secondary HyperPTH. Bradycardia on metoprolol. P/ Continue current POC and medications. Continue HD TIW. DC Renvela and start Phoslo due to concerns regarding itching. Start Ramipril 2.5mg qhs. No NSAIDs. AM labs. Daily weight. Aggressive PT as tolerated.
[2019-06-07] MEDS: RAMIPRIL 2.5 MG CAP PO SCH (23:39)
[2019-06-08 05:54] LABS: Absolute Lymphocytes (CBC) 1.3 K/uL (0.7-4.9); Basophils % 0.8 % (0-1.3); Hematocrit 28.3 % (39.6-49.0); MPV 8.9 fL (7.6-11.3); Protime INR 2.99; RBC Red Blood Cell Count 2.98 M/uL (4.33-5.43)
[2019-06-08 06:08] LABS: Albumin 3.1 g/dL (3.4-5.0); Bilirubin Total 0.3 mg/dL (0.2-1.0); Magnesium 2.7 mg/dL (1.8-2.4); Phosphorus 7.9 mg/dL (2.5-4.9); Potassium 5.2 mmol/L (3.5-5.1); Protein, Total 6.3 g/dL (6.4-8.2)
[2019-06-08] MEDS: [UNRECOGNIZED DRUG - OTHER] PO SCH (07:30)
[2019-06-08] MEDS: LIDOCAINE 4% PATCH TOP SCH (07:31)
[2019-06-08] MEDS: CYANOCOBALAMIN 1,000 MCG TAB PO SCH (07:31)
[2019-06-08] MEDS: DIPHENHYDRAMINE 25 MG TAB/CAP PO SCH ×2 (07:31→20:41)
[2019-06-08] MEDS: CA ACETATE 667 MG CAP PO SCH ×3 (07:32→19:51)
[2019-06-08] MEDS: ACETAMINOPHEN 325 MG TABLET PO PRN (07:32)
[2019-06-08] MEDS: MULTIVITAMINS,THERAPEUT 1 TAB PO SCH (07:32)
[2019-06-08] MEDS: DULOXETINE 20 MG CAP PO SCH (07:32)
[2019-06-08] MEDS: POLYETHYL GLY 3350 17 GM/DOSE PO PRN (07:32)
[2019-06-08] MEDS: LORATADINE 10 MG TAB PO SCH (07:32)
[2019-06-08] MEDS: METOPROLOL XL 25 MG TAB PO SCH ×2 (07:32→19:54)
[2019-06-08] MEDS: FEBUXOSTAT 80 MG PO SCH (07:33)
--- NOTE | 2019-06-08 10:52 | FAST ---
SHIFT START DATE/TIME: 06/08/2019 07:00 (CDT) SHIFT END DATE/TIME: 06/08/2019 19:00 (CDT) NAME CHELA RUBALCAVA DATE OF : 1935 DATE OF ADMISSION: 05/26/2019 13:40 (CDT) PHONE: AGE: 84 N# [id number] GENDER: Male ENCOUNTER PHYSICIAN: Dr. Gamal Lafleur M.D. ADMISSION DIAGNOSIS: - Orthopaedic Disorders 08 - Unilateral Hip Fracture (08.11) left hip fx. EATING: EATING - STEP 1: Does the patient complete the activity by him/herself with no assistance (physical, verbal/nonverbal cueing, setup/clean-up)? No. EATING - STEP 2: Does the patient need only setup/clean-up assistance from one helper? Yes. 1. [id number] ADMISSION PERFORMANCE: Setup or clean-up assistance CODE: 05 ORAL HYGIENE: ORAL HYGIENE - STEP 1: Does the patient complete the activity by him/herself with no assistance (physical, verbal/nonverbal cueing, setup/clean-up)? Yes. 1. [id number] ADMISSION PERFORMANCE: Independent CODE: 06 TOILETING HYGIENE: TOILETING HYGIENE - STEP 1: Does the patient complete the activity by him/herself with no assistance (physical, verbal/nonverbal cueing, setup/clean-up)? No. TOILETING HYGIENE - STEP 2: Does the patient need only setup/clean-up assistance from one helper? No. TOILETING HYGIENE - STEP 3: Does the patient need only verbal/nonverbal cueing or touching/steadying/contact guard assistance fro m one helper? Yes. 1. [id number] ADMISSION PERFORMANCE: Supervision or touching assistance CODE: 04 BATHING: Not assessed/no information CODE: - DRESSING - UPPER BODY: Not assessed/no information CODE: - DRESSING - LOWER BODY: DRESSING - LOWER BODY - STEP 1: Does the patient complete the activity by him/herself with no assistance (physical, verbal/nonverbal cueing, setup/clean-up)? No. DRESSING - LOWER BODY - STEP 2: Does the patient need only setup/clean-up assistance from one helper? No. DRESSING - LOWER BODY - STEP 3: Does the patient need only verbal/nonverbal cueing or touching/steadying/contact guard assistance fro m one helper? No. DRESSING - LOWER BODY - STEP 4: Does the patient need physical assistance - for example lifting or trunk support from one helper - wi th the helper providing less than half of the effort? Yes. 1. [id number] ADMISSION PERFORMANCE: Partial/moderate assistance CODE: 03 PUTTING ON/TAKING OFF FOOTWEAR: FOOTWEAR - STEP 1: Does the patient complete the activity by him/herself with no assistance (physical, verbal/nonverbal cueing, setup/clean-up)? No. FOOTWEAR - STEP 2: Does the patient need only setup/clean-up assistance from one helper? No. FOOTWEAR - STEP 3: Does the patient need only verbal/nonverbal cueing or touching/steadying/contact guard assistance fro m one helper? Yes. 1. [id number] ADMISSION PERFORMANCE: Supervision or touching assistance CODE: 04 ROLL LEFT AND RIGHT: ROLL LEFT AND RIGHT - STEP 1: Does the patient complete the activity by him/herself with no assistance (physical, verbal/nonverbal cueing, setup/clean-up)? No. ROLL LEFT AND RIGHT - STEP 2: Does the patient need only setup/clean-up assistance from one helper? No. ROLL LEFT AND RIGHT - STEP 3: Does the patient need only verbal/nonverbal cueing or touching/steadying/contact guard assistance fro m one helper? Yes. 1. [id number] ADMISSION PERFORMANCE: Supervision or touching assistance CODE: 04 SIT TO LYING: SIT TO LYING - STEP 1: Does the patient complete the activity by him/herself with no assistance (physical, verbal/nonverbal cueing, setup/clean-up)? No. SIT TO LYING - STEP 2: Does the patient need only setup/clean-up assistance from one helper? No. SIT TO LYING - STEP 3: Does the patient need only verbal/nonverbal cueing or touching/steadying/contact guard assistance fro m one helper? Yes. 1. [id number] ADMISSION PERFORMANCE: Supervision or touching assistance CODE: 04 LYING TO SITTING: LYING TO SITTING ON SIDE OF BED - STEP 1: Does the patient complete the activity by him/herself with no assistance (physical, verbal/nonverbal cueing, setup/clean-up)? No. LYING TO SITTING ON SIDE OF BED - STEP 2: Does the patient need only setup/clean-up assistance from one helper? No. LYING TO SITTING ON SIDE OF BED - STEP 3: Does the patient need only verbal/nonverbal cueing or touching/steadying/contact guard assistance fro m one helper? Yes. 1. [id number] ADMISSION PERFORMANCE: Supervision or touching assistance CODE: SIT TO STAND: SIT TO STAND - STEP 1: Does the patient complete the activity by him/herself with no assistance (physical, verbal/nonverbal cueing, setup/clean-up)? No. SIT TO STAND - STEP 2: Does the patient need only setup/clean-up assistance from one helper? No. SIT TO STAND - STEP 3: Does the patient need only verbal/nonverbal cueing or touching/steadying/contact guard assistance fro m one helper? Yes. 1. [id number] ADMISSION PERFORMANCE: Supervision or touching assistance CODE: 04 TRANSFERS: BED, CHAIR: CHAIR/[id number] TRANSFER - STEP 1: Does the patient complete the activity by him/herself with no assistance (physical, verbal/nonverbal cueing, setup/clean-up)? No. CHAIR/[id number] TRANSFER - STEP 2: Does the patient need only setup/clean-up assistance from one helper? No. CHAIR/[id number] TRANSFER - STEP 3: Does the patient need only verbal/nonverbal cueing or touching/steadying/contact guard assistance fro m one helper? Yes. 1. [id number] ADMISSION PERFORMANCE: Supervision or touching assistance CODE: 04 TRANSFER TOILET: TOILET TRANSFER - STEP 1: Does the patient complete the activity by him/herself with no assistance (physical, verbal/nonverbal cueing, setup/clean-up)? No. TOILET TRANSFER - STEP 2: Does the patient need only setup/clean-up assistance from one helper? No. TOILET TRANSFER - STEP 3: Does the patient need only verbal/nonverbal cueing or touching/steadying/contact guard assistance fro m one helper? Yes. 1. [id number] ADMISSION PERFORMANCE: Supervision or touching assistance CODE: 04 TRANSFERS: CAR: Not assessed/no information CODE: - WALK 10 FEET: Not assessed/no information CODE: - 1 STEP (CURB): Not assessed/no information CODE: - PICKING UP OBJECT: Not attempted due to medical condition or safety concerns CODE: 88 DOES THE PATIENT USE A WHEELCHAIR/SCOOTER? CODE: EXPR WHEEL 50 FEET WITH TWO TURNS: Not assessed/no information CODE: - INDICATE THE TYPE OF WHEELCHAIR/SCOOTER USED: RR1. INDICATE THE TYPE OF WHEELCHAIR/SCOOTER USED.: Manual CODE: 1 WHEEL 150 FEET: WHEEL 150 FEET - STEP 1: Does the patient complete the activity by him/herself with no assistance (physical, verbal/nonverbal cueing, setup/clean-up)? No. WHEEL 150 FEET - STEP 2: Does the patient need only setup/clean-up assistance from one helper? No. WHEEL 150 FEET - STEP 3: Does the patient need only verbal/nonverbal cueing or touching/steadying/contact guard assistance fro m one helper? Yes. 1. [id number] ADMISSION PERFORMANCE: Supervision or touching assistance CODE: 04 INDICATE THE TYPE OF WHEELCHAIR/SCOOTER USED: CODE: EXPR BLADDER AND BOWEL: H350. BLADDER CONTINENCE (3-DAY ASSESSMENT PERIOD): Always continent (no documented incontinence) CODE: 0 H400. BOWEL CONTINENCE (3-DAY ASSESSMENT PERIOD): Always continent CODE: 0 SIGNATURE PANEL: The following modified sections: 1. [id number] Admission Performance, 1. [id number] Admission Performance, 1. BT7578B Admission Performance, 1. [id number] Admission Performance, 1. XY4967e Admission Performance, 1. QJ5412x Admission Performance, 1. CN5536L Admission Performance, 1. LW9237T Admission Performance , 1. ZS0417K Admission Performance, 1. JL3202S Admission Performance, 1. FM5428S Admission Performanc e, 1. [id number] Admission Performance, 1. NT8256E Admission Performance, 1. MA3728D Admission Performan ce, RR1. Indicate the type of wheelchair/scooter used., 1. [id number] Admission Performance, Code, H350. Bladder Continence (3-day assessment period), H400. Bowel Continence (3-day assessment period) were [electronically] signed by Lorene La C.N.A. on SatJun 08 2019 10:52:[address] [facility]-0500 ([facility])
--- NOTE | 2019-06-08 14:23 | FAST ---
ENCOUNTER DATE AND TIME: 06/08/2019 08:00 (CDT) NAME CHELA RUBALCAVA DATE OF : 1935 DATE OF ADMISSION: 05/26/2019 13:40 (CDT) PHONE: AGE: 84 N# [id number] GENDER: Male ENCOUNTER PHYSICIAN: Dr. Gamal Lafleur M.D. ADMISSION DIAGNOSIS: - Orthopaedic Disorders 08 - Unilateral Hip Fracture (08.11) left hip fx. EATING: Not assessed/no information CODE: - ORAL HYGIENE: ORAL HYGIENE - STEP 1: Does the patient complete the activity by him/herself with no assistance (physical, verbal/nonverbal cueing, setup/clean-up)? Yes. 1. [id number] ADMISSION PERFORMANCE: Independent CODE: 06 TOILETING HYGIENE: Not assessed/no information CODE: - BATHING: SHOWER/BATHE SELF - STEP 1: Does the patient complete the activity by him/herself with no assistance (physical, verbal/nonverbal cueing, setup/clean-up)? Yes. 1. [id number] ADMISSION PERFORMANCE: Independent CODE: 06 DRESSING - UPPER BODY: DRESSING - UPPER BODY - STEP 1: Does the patient complete the activity by him/herself with no assistance (physical, verbal/nonverbal cueing, setup/clean-up)? No. DRESSING - UPPER BODY - STEP 2: Does the patient need only setup/clean-up assistance from one helper? Yes. 1. [id number] ADMISSION PERFORMANCE: Setup or clean-up assistance CODE: 05 DRESSING - LOWER BODY: DRESSING - LOWER BODY - STEP 1: Does the patient complete the activity by him/herself with no assistance (physical, verbal/nonverbal cueing, setup/clean-up)? No. DRESSING - LOWER BODY - STEP 2: Does the patient need only setup/clean-up assistance from one helper? No. DRESSING - LOWER BODY - STEP 3: Does the patient need only verbal/nonverbal cueing or touching/steadying/contact guard assistance fro m one helper? Yes. 1. [id number] ADMISSION PERFORMANCE: Supervision or touching assistance CODE: 04 PUTTING ON/TAKING OFF FOOTWEAR: FOOTWEAR - STEP 1: Does the patient complete the activity by him/herself with no assistance (physical, verbal/nonverbal cueing, setup/clean-up)? No. FOOTWEAR - STEP 2: Does the patient need only setup/clean-up assistance from one helper? No. FOOTWEAR - STEP 3: Does the patient need only verbal/nonverbal cueing or touching/steadying/contact guard assistance fro m one helper? Yes. 1. [id number] ADMISSION PERFORMANCE: Supervision or touching assistance CODE: 04 DOES THE PATIENT USE A WHEELCHAIR/SCOOTER? CODE: EXPR INDICATE THE TYPE OF WHEELCHAIR/SCOOTER USED: CODE: EXPR INDICATE THE TYPE OF WHEELCHAIR/SCOOTER USED: CODE: EXPR BLADDER AND BOWEL: CODE: EXPR CODE: EXPR SIGNATURE PANEL: The following modified sections: 1. [id number] Admission Performance, 1. IN7339g Admission Performance, 1. TQ5695t Admission Performance, 1. QW5763i Admission Performance, 1. NS4638k Admission Performance, 1. TS7667e Admission Performance were [electronically] signed by EDITH Cox on SatJun 08 2019 14:22:07 [facility]-0500 (Central Daylight Time)
--- NOTE | 2019-06-08 18:32 | R.PN ---
ENCOUNTER DATE AND TIME: 06/08/2019 18:30 (CDT) NAME CHELA RUBALCAVA DATE OF : 1935 DATE OF ADMISSION: 05/26/2019 13:40 (CDT) left hip fxCHIEF COMPLAINT: Left hip fracture SUBJECTIVE: Pt denied any depression. Pt denied any Shortness of Breath. He is making good progress with physical and occupational therapy. His blood work is stable. Pain is well managed. VITAL SIGNS Temperature: 98.2 F SBP/DBP: 145/82 Pulse: 74 Resp: 16 MEDICATION ALLERGIES: ADHESIVE TAPE codeine Penicillin ENVIRONMENTAL ALLERGIES: - Substance Allergies None Known - Other Allergies None Known NURSING: - Shower allowing shower - Skin care per protocol PRECAUTIONS: - Anterior Hip Precaution No abduction No active extension No adduction across midline No external rotation No hip flexion >90 degrees No internal rotation - Weight Bearing Precaution WBAT left LE ACTIVITIES OOB only with supervision THERAPIES: - Dietary and Nutrition Adequate Nutrition. Nutritional Education. Nutritional Supplements. PHYSICAL EXAM - Gen Alert and awake Lying in bed No apparent distress Oriented to: person, time, and place - Skin No breakdown No abnormalities - Eyes No abnormalities - ENMT No abnormalities - Neck No abnormalities - CVS RRR - Chest No abnormalities - Abd Soft - GI nondistended Deferred - No abnormalities - Ext Mild left lower extremity edema. - MSK 4+/5 weakness in left lower extremity - Neuro 4/5 strength left lower extremity. - Psych No abnormalities ASSESSMENT: Pt. is a 84 yo Right-handed white male.On 02/18/2019 he was admitted to [facility] with diagnosis left hip fx.His impairment category is Orthopaedic Disorders 08 - Unilateral Hip Fracture (08.11).Pre-mo rbidly, Pt. was independent/mod-I in Self-Care, Sphincter Control, Transfers Control, Locomotion, Com munication, and Social Cognition; and he had good Sphincter Control.Currently, he has deficits of Meli f-Care, Transfers Control, Locomotion, Endurance, Balance, and Safety Awareness.Pt. is now referred t [facility] for acute in-patient rehabilitation in order to maximize patient' s functional independence in activities of daily living, strength, ROM, and mobility.- Rehab Goal Patient has realistic goal of being discharged at assistance level 6-Gisselle to reside at Home with Fam connie/Relatives. MDM/PLAN: - Physical Therapy Decreased range of motion - to improve, our physical therapists will perform initial evaluation of p t's status upon admission and devise an individualized program for increasing patient's Range of Magdaleno on. Gait dysfunction - to improve, our physical therapists will perform initial evaluation of pt's statu s upon admission and devise an individualized program for Gait Training, and Wheel Chair mobility Inability to transfer - to improve, our physical therapists will perform initial evaluation of pt's status upon admission and devise an individualized program for Bed mobility Need for home safety evaluation - to improve, our physical therapists will perform initial evaluatio n of pt's status upon admission and devise an individualized program for Home Evaluation Need in caregiver upon discharge - to improve, our physical therapists will perform initial evaluati on of pt's status upon admission and devise an individualized program for Caregiver Training Edema - to improve, our physical therapists will perform initial evaluation of pt's status upon admi ssion and devise an individualized program for Elevation Training, and Lymphedema Therapy New precaution - to improve, our physical therapists will perform initial evaluation of pt's status upon admission and devise an individualized program for Patient precaution education Poor balance - to improve, our physical therapists will perform initial evaluation of pt's status up on admission and devise an individualized program for Balance Training Poor endurance - to improve, our physical therapists will perform initial evaluation of pt's status upon admission and devise an individualized program for Endurance Training Weakness - to improve, our physical therapists will perform initial evaluation of pt's status upon a dmission and devise an individualized program for Aquatic Therapy, Neuromuscular Reeducation, and Str engthening Achieving independence - to improve, our physical therapists will perform initial evaluation of pt's status upon admission and devise an individualized program for Community Reintegration Activities - Occupational Therapy ADL deficits - to improve, our occupation therapists will perform initial evaluation of pt's status upon admission and devise an individualized program for Bathing, Bed mobility, Community Reintegratio n, Cooking, Dressing, Eating, Fine Motor Skills, Grooming, Homemaking, Kitchen Mobility, Laundry, Pat ient Education, Safety Awareness, Splinting - Positioning, Transfers(Toilet, Tub, Shower), and Wheel Chair Management Need for patient care nursing assistant - to improve, our occupation therapists will perform initial evaluation of pt's status upon admission and devise an individualized program for Caregiver Training Weakness - to improve, our occupation therapists will perform initial evaluation of pt's status upon admission and devise an individualized program for Aquatic Therapy, Balance, Endurance, UE ROM, and UE strengthening - Other See attached MAR (Medication Administration Record) - Anterior Hip Precaution No abduction No active extension No adduction across midline No external rotation No hip flexion >90 degrees No internal rotation - Diet - Liquid Texture Continue Regular - Tube Feed Continue N/A - Diet Type Continue Regular - Posterior Hip Precaution No adduction across midline No external rotation No hip flexion >90 degrees No internal rotation No wheel chair propulsion - Weight Bearing Precaution WBAT left LE - Skin care per protocol - Diet - Solid Texture Continue Regular - Shower allowing shower FUNCTIONAL STATUS: UPDATED AT WEEKLY TEAM CONFERENCE - Bladder Same accident frequency: 7-Ind - No accidents in the past 7 days - Bowel Same accident frequency: 7-Ind - No accidents in the past 7 days - Walking Same score based on distance walked: 2(50-149ft) - Wheelchair Same score based on distance traveled: 1(<=50ft) FUNCTIONAL STATUS: - Self-Care A. Eating sup B. Grooming sup C. Bathing modA D. Dressing - Upper sup E. Dressing - Lower Levi F. Toileting Levi - Sphincter Control G: Bladder control Ind H: Bowel control Ind - Transfers Control I. Bed/Chair/Wheelchair modA J. Toilet modA K. Tub/Shower modA - Locomotion L. Walk/Wheelchair (C) modA L. Walk/Wheelchair (W) ADNO M. Stairs ADNO - Communication N. Comprehension (B) Gisselle O. Expression (B) Gisselle - Social Cognition P. Social Interaction Gisselle Q. Problem Solving Gisselle R. Memory Gisselle - Endurance Poor - Balance Poor - Safety Awareness Fair QI SCORES: - Self-Care A. Eating 05-Setup or clean-up assistance B. Oral hygiene 05-Setup or clean-up assistance C. Toileting hygiene 04-Supervision or touching assistance E. Shower/bathe self 03-Partial/moderate assistance F. Upper body dressing 05-Setup or clean-up assistance G. Lower body dressing 03-Partial/moderate assistance H. Putting on/taking off footwear 02-Substantial/maximal assistance - Mobility A. Roll left and right 03-Partial/moderate assistance B. Sit to lying 03-Partial/moderate assistance C. Lying to sitting on side of bed 03-Partial/moderate assistance D. Sit to stand 03-Partial/moderate assistance E. Chair/[id number] transfer 03-Partial/moderate assistance F. Toilet transfer 03-Partial/moderate assistance G. Car transfer 88-Not attempted due to medical condition or safety concerns I. Walk 10 feet 03-Partial/moderate assistance J. Walk 50 feet with two turns 03-Partial/moderate assistance K. Walk 150 feet 88-Not attempted due to medical condition or safety concerns L. Walking 10 feet on uneven surfaces 88-Not attempted due to medical condition or safety concerns M. 1 step (curb) 88-Not attempted due to medical condition or safety concerns N. 4 steps 88-Not attempted due to medical condition or safety concerns O. 12 steps 88-Not attempted due to medical condition or safety concerns P. Picking up object 88-Not attempted due to medical condition or safety concerns R. Wheel 50 feet with two turns 88-Not attempted due to medical condition or safety concerns S. Wheel 150 feet 88-Not attempted due to medical condition or safety concerns - Bladder and Bowel Bladder continence 0-Always continent Bowel continence 0-Always continent CURRENT FUNC. DEFICITS: Self-Care, Transfers Control, Locomotion, Endurance, Balance, and Safety Awareness SIGNATURE PANEL: (CDT)
[2019-06-08] MEDS: WARFARIN SODIUM 6 MG TAB PO SCH (19:50)
[2019-06-08] MEDS: WARFARIN SODIUM 1 MG TAB PO SCH (19:50)
[2019-06-08] MEDS: RANITIDINE 150 MG TABLET PO SCH (20:40)
[2019-06-08] MEDS: RAMIPRIL 2.5 MG CAP PO SCH (20:40)
[2019-06-08] MEDS: DOXAZOSIN 2 MG TAB PO SCH (20:40)
[2019-06-08] MEDS: DOCUSATE NA 100 MG CAP PO SCH (20:40)
[2019-06-08] MEDS: MELATONIN 3 MG TABLET PO SCH (20:41)
[2019-06-09 07:04] LABS: Protime INR 3.05
[2019-06-09] MEDS ORDERED: LIDOCAINE 4% PATCH TD SCH (08:00)
[2019-06-09] MEDS: FEBUXOSTAT 80 MG PO SCH (08:00)
[2019-06-09] MEDS: DULOXETINE 20 MG CAP PO SCH (08:08)
[2019-06-09] MEDS: MULTIVITAMINS,THERAPEUT 1 TAB PO SCH (08:08)
[2019-06-09] MEDS: CYANOCOBALAMIN 1,000 MCG TAB PO SCH (08:08)
[2019-06-09] MEDS: CA ACETATE 667 MG CAP PO SCH ×3 (08:08→16:44)
[2019-06-09] MEDS: METOPROLOL XL 25 MG TAB PO SCH ×2 (08:09→19:29)
[2019-06-09] MEDS: LORATADINE 10 MG TAB PO SCH (08:09)
[2019-06-09] MEDS: DIPHENHYDRAMINE 25 MG TAB/CAP PO SCH ×2 (08:09→19:28)
[2019-06-09] MEDS: [UNRECOGNIZED DRUG - OTHER] PO SCH (08:10)
[2019-06-09] MEDS: ACETAMINOPHEN 325 MG TABLET PO PRN (12:10)
--- NOTE | 2019-06-09 13:03 | FAST ---
SHIFT START DATE/TIME: 06/09/2019 07:00 (CDT) SHIFT END DATE/TIME: 06/09/2019 19:00 (CDT) NAME CHELA RUBALCAVA DATE OF : 1935 DATE OF ADMISSION: 05/26/2019 13:40 (CDT) PHONE: AGE: 84 N# [id number] GENDER: Male ENCOUNTER PHYSICIAN: Dr. Gamal Lafleur M.D. ADMISSION DIAGNOSIS: - Orthopaedic Disorders 08 - Unilateral Hip Fracture (08.11) left hip fx. EATING: EATING - STEP 1: Does the patient complete the activity by him/herself with no assistance (physical, verbal/nonverbal cueing, setup/clean-up)? Yes. 1. [id number] ADMISSION PERFORMANCE: Independent CODE: 06 ORAL HYGIENE: ORAL HYGIENE - STEP 1: Does the patient complete the activity by him/herself with no assistance (physical, verbal/nonverbal cueing, setup/clean-up)? Yes. 1. [id number] ADMISSION PERFORMANCE: Independent CODE: 06 TOILETING HYGIENE: TOILETING HYGIENE - STEP 1: Does the patient complete the activity by him/herself with no assistance (physical, verbal/nonverbal cueing, setup/clean-up)? No. TOILETING HYGIENE - STEP 2: Does the patient need only setup/clean-up assistance from one helper? No. TOILETING HYGIENE - STEP 3: Does the patient need only verbal/nonverbal cueing or touching/steadying/contact guard assistance fro m one helper? Yes. 1. [id number] ADMISSION PERFORMANCE: Supervision or touching assistance CODE: 04 BATHING: Not assessed/no information CODE: - DRESSING - UPPER BODY: Not assessed/no information CODE: - DRESSING - LOWER BODY: DRESSING - LOWER BODY - STEP 1: Does the patient complete the activity by him/herself with no assistance (physical, verbal/nonverbal cueing, setup/clean-up)? No. DRESSING - LOWER BODY - STEP 2: Does the patient need only setup/clean-up assistance from one helper? No. DRESSING - LOWER BODY - STEP 3: Does the patient need only verbal/nonverbal cueing or touching/steadying/contact guard assistance fro m one helper? Yes. 1. [id number] ADMISSION PERFORMANCE: Supervision or touching assistance CODE: 04 PUTTING ON/TAKING OFF FOOTWEAR: FOOTWEAR - STEP 1: Does the patient complete the activity by him/herself with no assistance (physical, verbal/nonverbal cueing, setup/clean-up)? No. FOOTWEAR - STEP 2: Does the patient need only setup/clean-up assistance from one helper? No. FOOTWEAR - STEP 3: Does the patient need only verbal/nonverbal cueing or touching/steadying/contact guard assistance fro m one helper? Yes. 1. [id number] ADMISSION PERFORMANCE: Supervision or touching assistance CODE: 04 ROLL LEFT AND RIGHT: ROLL LEFT AND RIGHT - STEP 1: Does the patient complete the activity by him/herself with no assistance (physical, verbal/nonverbal cueing, setup/clean-up)? No. ROLL LEFT AND RIGHT - STEP 2: Does the patient need only setup/clean-up assistance from one helper? No. ROLL LEFT AND RIGHT - STEP 3: Does the patient need only verbal/nonverbal cueing or touching/steadying/contact guard assistance fro m one helper? Yes. 1. [id number] ADMISSION PERFORMANCE: Supervision or touching assistance CODE: 04 SIT TO LYING: SIT TO LYING - STEP 1: Does the patient complete the activity by him/herself with no assistance (physical, verbal/nonverbal cueing, setup/clean-up)? No. SIT TO LYING - STEP 2: Does the patient need only setup/clean-up assistance from one helper? No. SIT TO LYING - STEP 3: Does the patient need only verbal/nonverbal cueing or touching/steadying/contact guard assistance fro m one helper? Yes. 1. [id number] ADMISSION PERFORMANCE: Supervision or touching assistance CODE: 04 LYING TO SITTING: LYING TO SITTING ON SIDE OF BED - STEP 1: Does the patient complete the activity by him/herself with no assistance (physical, verbal/nonverbal cueing, setup/clean-up)? No. LYING TO SITTING ON SIDE OF BED - STEP 2: Does the patient need only setup/clean-up assistance from one helper? No. LYING TO SITTING ON SIDE OF BED - STEP 3: Does the patient need only verbal/nonverbal cueing or touching/steadying/contact guard assistance fro m one helper? Yes. 1. [id number] ADMISSION PERFORMANCE: Supervision or touching assistance CODE: 04 SIT TO STAND: SIT TO STAND - STEP 1: Does the patient complete the activity by him/herself with no assistance (physical, verbal/nonverbal cueing, setup/clean-up)? No. SIT TO STAND - STEP 2: Does the patient need only setup/clean-up assistance from one helper? No. SIT TO STAND - STEP 3: Does the patient need only verbal/nonverbal cueing or touching/steadying/contact guard assistance fro m one helper? Yes. 1. [id number] ADMISSION PERFORMANCE: Supervision or touching assistance CODE: 04 TRANSFERS: BED, CHAIR: CHAIR/[id number] TRANSFER - STEP 1: Does the patient complete the activity by him/herself with no assistance (physical, verbal/nonverbal cueing, setup/clean-up)? No. CHAIR/[id number] TRANSFER - STEP 2: Does the patient need only setup/clean-up assistance from one helper? No. CHAIR/[id number] TRANSFER - STEP 3: Does the patient need only verbal/nonverbal cueing or touching/steadying/contact guard assistance fro m one helper? Yes. 1. [id number] ADMISSION PERFORMANCE: Supervision or touching assistance CODE: 04 TRANSFER TOILET: TOILET TRANSFER - STEP 1: Does the patient complete the activity by him/herself with no assistance (physical, verbal/nonverbal cueing, setup/clean-up)? No. TOILET TRANSFER - STEP 2: Does the patient need only setup/clean-up assistance from one helper? No. TOILET TRANSFER - STEP 3: Does the patient need only verbal/nonverbal cueing or touching/steadying/contact guard assistance fro m one helper? Yes. 1. [id number] ADMISSION PERFORMANCE: Supervision or touching assistance CODE: 04 TRANSFERS: CAR: Not assessed/no information CODE: - WALK 10 FEET: Not assessed/no information CODE: - 1 STEP (CURB): Not assessed/no information CODE: - PICKING UP OBJECT: Not attempted due to medical condition or safety concerns CODE: 88 DOES THE PATIENT USE A WHEELCHAIR/SCOOTER? Q1. DOES THE PATIENT USE A WHEELCHAIR/SCOOTER?: Yes CODE: 1 WHEEL 50 FEET WITH TWO TURNS: WHEEL 50 FEET WITH TWO TURNS - STEP 1: Does the patient complete the activity by him/herself with no assistance (physical, verbal/nonverbal cueing, setup/clean-up)? No. WHEEL 50 FEET WITH TWO TURNS - STEP 2: Does the patient need only setup/clean-up assistance from one helper? No. WHEEL 50 FEET WITH TWO TURNS - STEP 3: Does the patient need only verbal/nonverbal cueing or touching/steadying/contact guard assistance fro m one helper? Yes. 1. [id number] ADMISSION PERFORMANCE: Supervision or touching assistance CODE: 04 INDICATE THE TYPE OF WHEELCHAIR/SCOOTER USED: CODE: EXPR WHEEL 150 FEET: Not assessed/no information CODE: - INDICATE THE TYPE OF WHEELCHAIR/SCOOTER USED: SS1. INDICATE THE TYPE OF WHEELCHAIR/SCOOTER USED.: Manual CODE: 1 BLADDER AND BOWEL: H350. BLADDER CONTINENCE (3-DAY ASSESSMENT PERIOD): Always continent (no documented incontinence) CODE: 0 H400. BOWEL CONTINENCE (3-DAY ASSESSMENT PERIOD): Always continent CODE: 0 SIGNATURE PANEL: The following modified sections: 1. [id number] Admission Performance, 1. [id number] Admission Performance, 1. [id number] Admission Performance, 1. [id number] Admission Performance, 1. [id number] Admission Performance, 1. ZK5130a Admission Performance, 1. QD7903s Admission Performance, 1. [id number] Admission Performance , 1. NL7320M Admission Performance, 1. [id number] Admission Performance, 1. [id number] Admission Performanc e, 1. AL6609F Admission Performance, 1. [id number] Admission Performance, Q1. Does the patient use a whe elchair/scooter?, 1. [id number] Admission Performance, Code, SS1. Indicate the type of wheelchair/scoote r used., H350. Bladder Continence (3-day assessment period), H400. Bowel Continence (3-day assessment period) were [electronically] signed by Sharri HernandezNToi on SatJun 09 2019 13:03:11 T-0500 (C entral Daylight Time)
[2019-06-09] MEDS: RAMIPRIL 2.5 MG CAP PO SCH (19:28)
[2019-06-09] MEDS: RANITIDINE 150 MG TABLET PO SCH (19:29)
[2019-06-09] MEDS: MELATONIN 3 MG TABLET PO SCH (19:29)
[2019-06-09] MEDS: DOXAZOSIN 2 MG TAB PO SCH (19:29)
[2019-06-09] MEDS: DOCUSATE NA 100 MG CAP PO SCH (19:29)
[2019-06-10 06:05] LABS: Protime INR 2.98
[2019-06-10] MEDS: CA ACETATE 667 MG CAP PO SCH ×3 (07:55→16:58)
[2019-06-10] MEDS: DIPHENHYDRAMINE 25 MG TAB/CAP PO SCH ×2 (07:56→23:23)
[2019-06-10] MEDS: DULOXETINE 20 MG CAP PO SCH (07:56)
[2019-06-10] MEDS: ACETAMINOPHEN 325 MG TABLET PO PRN (07:56)
[2019-06-10] MEDS: MULTIVITAMINS,THERAPEUT 1 TAB PO SCH (07:56)
[2019-06-10] MEDS: LORATADINE 10 MG TAB PO SCH (07:57)
[2019-06-10] MEDS: METOPROLOL XL 25 MG TAB PO SCH ×2 (07:57→23:23)
[2019-06-10] MEDS: CYANOCOBALAMIN 1,000 MCG TAB PO SCH (07:57)
[2019-06-10] MEDS: LIDOCAINE 4% PATCH TD SCH (07:59)
[2019-06-10] MEDS: [UNRECOGNIZED DRUG - OTHER] PO SCH (07:59)
[2019-06-10] MEDS: FEBUXOSTAT 80 MG PO SCH (08:00)
[2019-06-10] MEDS ORDERED: EPOETIN ALFA 10,000 UNIT/ML VIAL IV SCH (09:15)
--- NOTE | 2019-06-10 12:52 | FAST ---
SHIFT START DATE/TIME: 06/10/2019 07:00 (CDT) SHIFT END DATE/TIME: 06/10/2019 19:00 (CDT) NAME CHELA RUBALCAVA DATE OF : 1935 DATE OF ADMISSION: 05/26/2019 13:40 (CDT) PHONE: AGE: 84 N# [id number] GENDER: Male ENCOUNTER PHYSICIAN: Dr. Gamal Lafleur M.D. ADMISSION DIAGNOSIS: - Orthopaedic Disorders 08 - Unilateral Hip Fracture (08.11) left hip fx. EATING: EATING - STEP 1: Does the patient complete the activity by him/herself with no assistance (physical, verbal/nonverbal cueing, setup/clean-up)? No. EATING - STEP 2: Does the patient need only setup/clean-up assistance from one helper? Yes. 1. [id number] ADMISSION PERFORMANCE: Setup or clean-up assistance CODE: 05 ORAL HYGIENE: ORAL HYGIENE - STEP 1: Does the patient complete the activity by him/herself with no assistance (physical, verbal/nonverbal cueing, setup/clean-up)? Yes. 1. [id number] ADMISSION PERFORMANCE: Independent CODE: 06 TOILETING HYGIENE: TOILETING HYGIENE - STEP 1: Does the patient complete the activity by him/herself with no assistance (physical, verbal/nonverbal cueing, setup/clean-up)? No. TOILETING HYGIENE - STEP 2: Does the patient need only setup/clean-up assistance from one helper? No. TOILETING HYGIENE - STEP 3: Does the patient need only verbal/nonverbal cueing or touching/steadying/contact guard assistance fro m one helper? Yes. 1. [id number] ADMISSION PERFORMANCE: Supervision or touching assistance CODE: 04 BATHING: Not assessed/no information CODE: - DRESSING - UPPER BODY: Not assessed/no information CODE: - DRESSING - LOWER BODY: Not assessed/no information CODE: - PUTTING ON/TAKING OFF FOOTWEAR: Not assessed/no information CODE: - ROLL LEFT AND RIGHT: Not assessed/no information CODE: - SIT TO LYING: Not assessed/no information CODE: - LYING TO SITTING: Not assessed/no information CODE: - SIT TO STAND: Not assessed/no information CODE: - TRANSFERS: BED, CHAIR: CHAIR/[id number] TRANSFER - STEP 1: Does the patient complete the activity by him/herself with no assistance (physical, verbal/nonverbal cueing, setup/clean-up)? No. CHAIR/[id number] TRANSFER - STEP 2: Does the patient need only setup/clean-up assistance from one helper? No. CHAIR/[id number] TRANSFER - STEP 3: Does the patient need only verbal/nonverbal cueing or touching/steadying/contact guard assistance fro m one helper? Yes. 1. [id number] ADMISSION PERFORMANCE: Supervision or touching assistance CODE: 04 TRANSFER TOILET: TOILET TRANSFER - STEP 1: Does the patient complete the activity by him/herself with no assistance (physical, verbal/nonverbal cueing, setup/clean-up)? No. TOILET TRANSFER - STEP 2: Does the patient need only setup/clean-up assistance from one helper? No. TOILET TRANSFER - STEP 3: Does the patient need only verbal/nonverbal cueing or touching/steadying/contact guard assistance fro m one helper? Yes. 1. [id number] ADMISSION PERFORMANCE: Supervision or touching assistance CODE: 04 TRANSFERS: CAR: Not assessed/no information CODE: - WALK 10 FEET: Not assessed/no information CODE: - 1 STEP (CURB): Not assessed/no information CODE: - PICKING UP OBJECT: Not assessed/no information CODE: - DOES THE PATIENT USE A WHEELCHAIR/SCOOTER? CODE: EXPR WHEEL 50 FEET WITH TWO TURNS: Not assessed/no information CODE: - INDICATE THE TYPE OF WHEELCHAIR/SCOOTER USED: CODE: EXPR WHEEL 150 FEET: Not assessed/no information CODE: - INDICATE THE TYPE OF WHEELCHAIR/SCOOTER USED: CODE: EXPR BLADDER AND BOWEL: H350. BLADDER CONTINENCE (3-DAY ASSESSMENT PERIOD): No urine output (e.g., renal failure) CODE: 5 H400. BOWEL CONTINENCE (3-DAY ASSESSMENT PERIOD): Always continent CODE: 0 SIGNATURE PANEL: The following modified sections: 1. [id number] Admission Performance, 1. [id number] Admission Performance, 1. GW4915U Admission Performance, 1. [id number] Admission Performance, 1. [id number] Admission Performance, Code, H350. Bladder Continence (3-day assessment period), H350. Bladder Continence (3-day assessment period), H400. Bowel Continence (3-day assessment period) were [electronically] signed by Josiah Mojica on SatJun 10 2019 12:52:05 GMT-0500 (Central Daylight Time)
--- NOTE | 2019-06-10 13:42 | PN ---
Date of Progress Note: 06/10/2019 Subjective: The patient is seen and examined. He reports no complaints. The nursing is reporting t hat he has been having a cough. Objective: Vital Signs: Have been reviewed and are stable. General: He appears in no acute distress. HEENT: Atraumatic head. Lungs: Clear to auscultation. Abdomen: Soft and nontender. Extremities: Without any evidence of edema. Laboratory Data: Showing a creatinine of 9.7, BUN of 83, and potassium of 5.2. CBC showing stable h emoglobin, hematocrit, and platelet count. Current Medications: Have been reviewed in detail. Impression: 1.End-stage renal disease, on dialysis. 2.Hypertension. Currently stable. 3.Cough, possibly from use of ramipril. 4.On chronic anticoagulation with Coumadin. INR is therapeutic. 5.Severe debility and weakness, undergoing physical therapy. Plan: Patient is overall doing okay at this time. We will go ahead and discontinue the ramipril as this might be causing the cough and switch him to a low dose of losartan. We will request a chest x- ray if the cough seems to be persistent, but likely secondary to STEFANIE inhibitor induced. We will foll ow up closely. Continue Saturday, Saturday, Saturday dialysis and anemia will be monitored as well. We will go ahead and order Epogen to maintain hemoglobin within normal range. Continue all other medica tions and plan of care. TR/LISA Voice ID: [id number] Report ID: [id number]
[2019-06-10] MEDS: WARFARIN SODIUM 6 MG TAB PO SCH (16:59)
[2019-06-10] MEDS ORDERED: WARFARIN SODIUM 6 MG TAB PO SCH (17:00)
--- NOTE | 2019-06-10 19:16 | R.PN ---
ENCOUNTER DATE AND TIME: 06/10/2019 19:14 (CDT) NAME CHELA RUBALCAVA DATE OF : 1935 DATE OF ADMISSION: 05/26/2019 13:40 (CDT) left hip fxCHIEF COMPLAINT: Left hip fracture SUBJECTIVE: Pt denied any depression. Pt denied any Shortness of Breath. He is making good progress with physical and occupational therapy. His blood work is stable. Pain is well managed. VITAL SIGNS Temperature: 97.6 F SBP/DBP: 152/84 Pulse: 81 Resp: 16 MEDICATION ALLERGIES: ADHESIVE TAPE codeine Penicillin ENVIRONMENTAL ALLERGIES: - Substance Allergies None Known - Other Allergies None Known NURSING: - Shower allowing shower - Skin care per protocol PRECAUTIONS: - Anterior Hip Precaution No abduction No active extension No adduction across midline No external rotation No hip flexion >90 degrees No internal rotation - Weight Bearing Precaution WBAT left LE ACTIVITIES OOB only with supervision THERAPIES: - Dietary and Nutrition Adequate Nutrition. Nutritional Education. Nutritional Supplements. PHYSICAL EXAM - Gen Alert and awake Lying in bed No apparent distress Oriented to: person, time, and place - Skin No breakdown No abnormalities - Eyes No abnormalities - ENMT No abnormalities - Neck No abnormalities - CVS RRR - Chest No abnormalities - Abd Soft - GI nondistended Deferred - No abnormalities - Ext Mild left lower extremity edema. - MSK 4+/5 weakness in left lower extremity - Neuro 4/5 strength left lower extremity. - Psych No abnormalities ASSESSMENT: Pt. is a 84 yo Right-handed white male.On 02/18/2019 he was admitted to [facility] with diagnosis left hip fx.His impairment category is Orthopaedic Disorders 08 - Unilateral Hip Fracture (08.11).Pre-mo rbidly, Pt. was independent/mod-I in Self-Care, Sphincter Control, Transfers Control, Locomotion, Com munication, and Social Cognition; and he had good Sphincter Control.Currently, he has deficits of Meli f-Care, Transfers Control, Locomotion, Endurance, Balance, and Safety Awareness.Pt. is now referred t [facility] for acute in-patient rehabilitation in order to maximize patient' s functional independence in activities of daily living, strength, ROM, and mobility.- Rehab Goal Patient has realistic goal of being discharged at assistance level 6-Gisselle to reside at Home with Fam connie/Relatives. MDM/PLAN: - Physical Therapy Decreased range of motion - to improve, our physical therapists will perform initial evaluation of p t's status upon admission and devise an individualized program for increasing patient's Range of Magdaleno on. Gait dysfunction - to improve, our physical therapists will perform initial evaluation of pt's statu s upon admission and devise an individualized program for Gait Training, and Wheel Chair mobility Inability to transfer - to improve, our physical therapists will perform initial evaluation of pt's status upon admission and devise an individualized program for Bed mobility Need for home safety evaluation - to improve, our physical therapists will perform initial evaluatio n of pt's status upon admission and devise an individualized program for Home Evaluation Need in caregiver upon discharge - to improve, our physical therapists will perform initial evaluati on of pt's status upon admission and devise an individualized program for Caregiver Training Edema - to improve, our physical therapists will perform initial evaluation of pt's status upon admi ssion and devise an individualized program for Elevation Training, and Lymphedema Therapy New precaution - to improve, our physical therapists will perform initial evaluation of pt's status upon admission and devise an individualized program for Patient precaution education Poor balance - to improve, our physical therapists will perform initial evaluation of pt's status up on admission and devise an individualized program for Balance Training Poor endurance - to improve, our physical therapists will perform initial evaluation of pt's status upon admission and devise an individualized program for Endurance Training Weakness - to improve, our physical therapists will perform initial evaluation of pt's status upon a dmission and devise an individualized program for Aquatic Therapy, Neuromuscular Reeducation, and Str engthening Achieving independence - to improve, our physical therapists will perform initial evaluation of pt's status upon admission and devise an individualized program for Community Reintegration Activities - Occupational Therapy ADL deficits - to improve, our occupation therapists will perform initial evaluation of pt's status upon admission and devise an individualized program for Bathing, Bed mobility, Community Reintegratio n, Cooking, Dressing, Eating, Fine Motor Skills, Grooming, Homemaking, Kitchen Mobility, Laundry, Pat ient Education, Safety Awareness, Splinting - Positioning, Transfers(Toilet, Tub, Shower), and Wheel Chair Management Need for adult daycare coordinator - to improve, our occupation therapists will perform initial evaluation of pt's status upon admission and devise an individualized program for Caregiver Training Weakness - to improve, our occupation therapists will perform initial evaluation of pt's status upon admission and devise an individualized program for Aquatic Therapy, Balance, Endurance, UE ROM, and UE strengthening - Other See attached MAR (Medication Administration Record) - Anterior Hip Precaution No abduction No active extension No adduction across midline No external rotation No hip flexion >90 degrees No internal rotation - Diet - Liquid Texture Continue Regular - Tube Feed Continue N/A - Diet Type Continue Regular - Posterior Hip Precaution No adduction across midline No external rotation No hip flexion >90 degrees No internal rotation No wheel chair propulsion - Weight Bearing Precaution WBAT left LE - Skin care per protocol - Diet - Solid Texture Continue Regular - Shower allowing shower FUNCTIONAL STATUS: UPDATED AT WEEKLY TEAM CONFERENCE - Bladder Same accident frequency: 7-Ind - No accidents in the past 7 days - Bowel Same accident frequency: 7-Ind - No accidents in the past 7 days - Walking Same score based on distance walked: 2(50-149ft) - Wheelchair Same score based on distance traveled: 1(<=50ft) FUNCTIONAL STATUS: - Self-Care A. Eating sup B. Grooming sup C. Bathing modA D. Dressing - Upper sup E. Dressing - Lower Levi F. Toileting Levi - Sphincter Control G: Bladder control Ind H: Bowel control Ind - Transfers Control I. Bed/Chair/Wheelchair modA J. Toilet modA K. Tub/Shower modA - Locomotion L. Walk/Wheelchair (C) modA L. Walk/Wheelchair (W) ADNO M. Stairs ADNO - Communication N. Comprehension (B) Gisselle O. Expression (B) Gisselle - Social Cognition P. Social Interaction Gisselle Q. Problem Solving Gisselle R. Memory Gisselle - Endurance Poor - Balance Poor - Safety Awareness Fair QI SCORES: - Self-Care A. Eating 05-Setup or clean-up assistance B. Oral hygiene 05-Setup or clean-up assistance C. Toileting hygiene 04-Supervision or touching assistance E. Shower/bathe self 03-Partial/moderate assistance F. Upper body dressing 05-Setup or clean-up assistance G. Lower body dressing 03-Partial/moderate assistance H. Putting on/taking off footwear 02-Substantial/maximal assistance - Mobility A. Roll left and right 03-Partial/moderate assistance B. Sit to lying 03-Partial/moderate assistance C. Lying to sitting on side of bed 03-Partial/moderate assistance D. Sit to stand 03-Partial/moderate assistance E. Chair/cel-bv-vsdnq transfer 03-Partial/moderate assistance F. Toilet transfer 03-Partial/moderate assistance G. Car transfer 88-Not attempted due to medical condition or safety concerns I. Walk 10 feet 03-Partial/moderate assistance J. Walk 50 feet with two turns 03-Partial/moderate assistance K. Walk 150 feet 88-Not attempted due to medical condition or safety concerns L. Walking 10 feet on uneven surfaces 88-Not attempted due to medical condition or safety concerns M. 1 step (curb) 88-Not attempted due to medical condition or safety concerns N. 4 steps 88-Not attempted due to medical condition or safety concerns O. 12 steps 88-Not attempted due to medical condition or safety concerns P. Picking up object 88-Not attempted due to medical condition or safety concerns R. Wheel 50 feet with two turns 88-Not attempted due to medical condition or safety concerns S. Wheel 150 feet 88-Not attempted due to medical condition or safety concerns - Bladder and Bowel Bladder continence 0-Always continent Bowel continence 0-Always continent CURRENT FUNC. DEFICITS: Self-Care, Transfers Control, Locomotion, Endurance, Balance, and Safety Awareness SIGNATURE PANEL: (CDT)
[2019-06-10] MEDS: EPOETIN ALFA-EPBX 10,000 UNIT/ML VIAL ONE ×2 (20:19→20:25)
[2019-06-10] MEDS: MELATONIN 3 MG TABLET PO SCH (23:23)
[2019-06-10] MEDS: DOXAZOSIN 2 MG TAB PO SCH (23:23)
[2019-06-10] MEDS: DOCUSATE NA 100 MG CAP PO SCH (23:23)
[2019-06-10] MEDS: RANITIDINE 150 MG TABLET PO SCH (23:24)
[2019-06-11 05:57] LABS: Absolute Lymphocytes (CBC) 0.9 K/uL (0.7-4.9); Basophils % 0.6 % (0-1.3); Hematocrit 28.1 % (39.6-49.0); Lymphocytes % 17.4 % (15.3-44.8); MPV 9.9 fL (7.6-11.3); RBC Red Blood Cell Count 3.02 M/uL (4.33-5.43)
[2019-06-11 06:18] LABS: Albumin 3.1 g/dL (3.4-5.0); Magnesium 2.2 mg/dL (1.8-2.4); Potassium 4.3 mmol/L (3.5-5.1); Prealbumin 25.7 mg/dL (20-40)
[2019-06-11] MEDS: FEBUXOSTAT 80 MG PO SCH (08:00)
[2019-06-11] MEDS: LIDOCAINE 4% PATCH TD SCH (08:22)
[2019-06-11] MEDS: DULOXETINE 20 MG CAP PO SCH (08:26)
[2019-06-11] MEDS: MULTIVITAMINS,THERAPEUT 1 TAB PO SCH (08:26)
[2019-06-11] MEDS: CA ACETATE 667 MG CAP PO SCH ×3 (08:26→17:00)
[2019-06-11] MEDS: METOPROLOL XL 25 MG TAB PO SCH ×2 (08:27→19:38)
[2019-06-11] MEDS: ACETAMINOPHEN 325 MG TABLET PO PRN (08:27)
[2019-06-11] MEDS: DIPHENHYDRAMINE 25 MG TAB/CAP PO SCH ×2 (08:27→20:48)
[2019-06-11] MEDS: CYANOCOBALAMIN 1,000 MCG TAB PO SCH (08:27)
[2019-06-11] MEDS: [UNRECOGNIZED DRUG - OTHER] PO SCH (08:29)
[2019-06-11] MEDS: LORATADINE 10 MG TAB PO SCH (08:29)
[2019-06-11] MEDS: LOSARTAN POTASSIUM 50 MG TABLET PO SCH (08:29)
[2019-06-11 13:00] LABS: Protime INR 2.45
--- NOTE | 2019-06-11 15:24 | FAST ---
ENCOUNTER DATE AND TIME: 06/11/2019 08:00 (CDT) NAME CHELA RUBALCAVA DATE OF : 1935 DATE OF ADMISSION: 05/26/2019 13:40 (CDT) PHONE: AGE: 84 N# [id number] GENDER: Male ENCOUNTER PHYSICIAN: Dr. Gamal Lafleur M.D. ADMISSION DIAGNOSIS: - Orthopaedic Disorders 08 - Unilateral Hip Fracture (.11) left hip fx. EATING: Not assessed/no information CODE: - ORAL HYGIENE: ORAL HYGIENE - STEP 1: Does the patient complete the activity by him/herself with no assistance (physical, verbal/nonverbal cueing, setup/clean-up)? Yes. 1. [id number] ADMISSION PERFORMANCE: Independent CODE: 06 TOILETING HYGIENE: Not assessed/no information CODE: - BATHING: SHOWER/BATHE SELF - STEP 1: Does the patient complete the activity by him/herself with no assistance (physical, verbal/nonverbal cueing, setup/clean-up)? Yes. 1. ADMISSION PERFORMANCE: Independent CODE: 06 DRESSING - UPPER BODY: DRESSING - UPPER BODY - STEP 1: Does the patient complete the activity by him/herself with no assistance (physical, verbal/nonverbal cueing, setup/clean-up)? Yes. 1. ADMISSION PERFORMANCE: Independent CODE: 06 DRESSING - LOWER BODY: DRESSING - LOWER BODY - STEP 1: Does the patient complete the activity by him/herself with no assistance (physical, verbal/nonverbal cueing, setup/clean-up)? Yes. 1. [id number] ADMISSION PERFORMANCE: Independent CODE: 06 PUTTING ON/TAKING OFF FOOTWEAR: FOOTWEAR - STEP 1: Does the patient complete the activity by him/herself with no assistance (physical, verbal/nonverbal cueing, setup/clean-up)? Yes. 1. [id number] ADMISSION PERFORMANCE: Independent CODE: 06 DOES THE PATIENT USE A WHEELCHAIR/SCOOTER? CODE: EXPR INDICATE THE TYPE OF WHEELCHAIR/SCOOTER USED: CODE: EXPR INDICATE THE TYPE OF WHEELCHAIR/SCOOTER USED: CODE: EXPR BLADDER AND BOWEL: CODE: EXPR CODE: EXPR SIGNATURE PANEL: The following modified sections: 1. [id number] Admission Performance, 1. IP2822s Admission Performance, 1. US3135g Admission Performance, 1. VT1761h Admission Performance, 1. SI3400x Admission Performance were [electronically] signed by EDITH Cox on SatJun 11 2019 15:23:20 GMT-0500 (Central Daylight Time)
--- NOTE | 2019-06-11 15:51 | FAST ---
ENCOUNTER DATE AND TIME: 06/11/2019 08:00 (CDT) NAME CHELA RUBALCAVA DATE OF : 1935 DATE OF ADMISSION: 05/26/2019 13:40 (CDT) PHONE: AGE: 84 N# [id number] GENDER: Male ENCOUNTER PHYSICIAN: Dr. Gamal Lafleur M.D. ADMISSION DIAGNOSIS: - Orthopaedic Disorders 08 - Unilateral Hip Fracture (.11) left hip fx. ROLL LEFT AND RIGHT: ROLL LEFT AND RIGHT - STEP 1: Does the patient complete the activity by him/herself with no assistance (physical, verbal/nonverbal cueing, setup/clean-up)? Yes. 1. [id number] ADMISSION PERFORMANCE: Independent CODE: 06 SIT TO LYING: SIT TO LYING - STEP 1: Does the patient complete the activity by him/herself with no assistance (physical, verbal/nonverbal cueing, setup/clean-up)? Yes. 1. [id number] ADMISSION PERFORMANCE: Independent CODE: 06 LYING TO SITTING: LYING TO SITTING ON SIDE OF BED - STEP 1: Does the patient complete the activity by him/herself with no assistance (physical, verbal/nonverbal cueing, setup/clean-up)? Yes. 1. [id number] ADMISSION PERFORMANCE: Independent CODE: 06 SIT TO STAND: SIT TO STAND - STEP 1: Does the patient complete the activity by him/herself with no assistance (physical, verbal/nonverbal cueing, setup/clean-up)? Yes. 1. [id number] ADMISSION PERFORMANCE: Independent CODE: 06 TRANSFERS: BED, CHAIR: CHAIR/[id number] TRANSFER - STEP 1: Does the patient complete the activity by him/herself with no assistance (physical, verbal/nonverbal cueing, setup/clean-up)? Yes. 1. [id number] ADMISSION PERFORMANCE: Independent CODE: 06 TRANSFER TOILET: TOILET TRANSFER - STEP 1: Does the patient complete the activity by him/herself with no assistance (physical, verbal/nonverbal cueing, setup/clean-up)? Yes. 1. [id number] ADMISSION PERFORMANCE: Independent CODE: 06 TRANSFERS: CAR: CAR TRANSFER - STEP 1: Does the patient complete the activity by him/herself with no assistance (physical, verbal/nonverbal cueing, setup/clean-up)? Yes. 1. [id number] ADMISSION PERFORMANCE: Independent CODE: 06 WALK 10 FEET: WALK 10 FEET - STEP 1: Does the patient complete the activity by him/herself with no assistance (physical, verbal/nonverbal cueing, setup/clean-up)? Yes. 1. [id number] ADMISSION PERFORMANCE: Independent CODE: 06 WALK 50 FEET: WALK 50 FEET - STEP 1: Does the patient complete the activity by him/herself with no assistance (physical, verbal/nonverbal cueing, setup/clean-up)? Yes. 1. [id number] ADMISSION PERFORMANCE: Independent CODE: 06 WALK 150 FEET: WALK 150 FEET - STEP 1: Does the patient complete the activity by him/herself with no assistance (physical, verbal/nonverbal cueing, setup/clean-up)? Yes. 1. [id number] ADMISSION PERFORMANCE: Independent CODE: 06 WALK 10 FEET UNEVEN: WALKING 10 FEET ON UNEVEN SURFACES - STEP 1: Does the patient complete the activity by him/herself with no assistance (physical, verbal/nonverbal cueing, setup/clean-up)? No. WALKING 10 FEET ON UNEVEN SURFACES - STEP 2: Does the patient need only setup/clean-up assistance from one helper? No. WALKING 10 FEET ON UNEVEN SURFACES - STEP 3: Does the patient need only verbal/nonverbal cueing or touching/steadying/contact guard assistance fro m one helper? Yes. 1. [id number] ADMISSION PERFORMANCE: Supervision or touching assistance CODE: 04 1 STEP (CURB): 1 STEP CURB - STEP 1: Does the patient complete the activity by him/herself with no assistance (physical, verbal/nonverbal cueing, setup/clean-up)? No. 1 STEP CURB - STEP 2: Does the patient need only setup/clean-up assistance from one helper? No. 1 STEP CURB - STEP 3: Does the patient need only verbal/nonverbal cueing or touching/steadying/contact guard assistance fro m one helper? Yes. 1. [id number] ADMISSION PERFORMANCE: Supervision or touching assistance CODE: 04 4 STEPS: 4 STEPS - STEP 1: Does the patient complete the activity by him/herself with no assistance (physical, verbal/nonverbal cueing, setup/clean-up)? No. 4 STEPS - STEP 2: Does the patient need only setup/clean-up assistance from one helper? No. 4 STEPS - STEP 3: Does the patient need only verbal/nonverbal cueing or touching/steadying/contact guard assistance fro m one helper? Yes. 1. [id number] ADMISSION PERFORMANCE: Supervision or touching assistance CODE: 04 12 STEPS: 12 STEPS - STEP 1: Does the patient complete the activity by him/herself with no assistance (physical, verbal/nonverbal cueing, setup/clean-up)? No. 12 STEPS - STEP 2: Does the patient need only setup/clean-up assistance from one helper? No. 12 STEPS - STEP 3: Does the patient need only verbal/nonverbal cueing or touching/steadying/contact guard assistance fro m one helper? Yes. 1. [id number] ADMISSION PERFORMANCE: Supervision or touching assistance CODE: 04 PICKING UP OBJECT: PICKING UP OBJECT - STEP 1: Does the patient complete the activity by him/herself with no assistance (physical, verbal/nonverbal cueing, setup/clean-up)? Yes. 1. [id number] ADMISSION PERFORMANCE: Independent CODE: 06 DOES THE PATIENT USE A WHEELCHAIR/SCOOTER? Q1. DOES THE PATIENT USE A WHEELCHAIR/SCOOTER?: Yes CODE: 1 WHEEL 50 FEET WITH TWO TURNS: WHEEL 50 FEET WITH TWO TURNS - STEP 1: Does the patient complete the activity by him/herself with no assistance (physical, verbal/nonverbal cueing, setup/clean-up)? Yes. 1. [id number] ADMISSION PERFORMANCE: Independent CODE: 06 INDICATE THE TYPE OF WHEELCHAIR/SCOOTER USED: RR1. INDICATE THE TYPE OF WHEELCHAIR/SCOOTER USED.: Manual CODE: 1 WHEEL 150 FEET: WHEEL 150 FEET - STEP 1: Does the patient complete the activity by him/herself with no assistance (physical, verbal/nonverbal cueing, setup/clean-up)? Yes. 1. [id number] ADMISSION PERFORMANCE: Independent CODE: 06 INDICATE THE TYPE OF WHEELCHAIR/SCOOTER USED: SS1. INDICATE THE TYPE OF WHEELCHAIR/SCOOTER USED.: Manual CODE: 1 BLADDER AND BOWEL: CODE: EXPR CODE: EXPR SIGNATURE PANEL: The following modified sections: 1. [id number] Admission Performance, 1. [id number] Admission Performance, 1. RZ5686Q Admission Performance, 1. RZ2548L Admission Performance, 1. GM2033U Admission Performance, 1. SV2185G Admission Performance, 1. GR4331O Admission Performance, 1. [id number] Admission Performance , 1. ND8036O Admission Performance, 1. YY7261M Admission Performance, 1. AA8503K Admission Performanc e, 1. FH5184S Admission Performance, 1. ZG8685E Admission Performance, 1. LP6339R Admission Performan ce, 1. PC4155E Admission Performance, Q1. Does the patient use a wheelchair/scooter?, 1. [id number] Admi ssion Performance, RR1. Indicate the type of wheelchair/scooter used., 1. YF8747G Admission Performan ce, Code, SS1. Indicate the type of wheelchair/scooter used. were [electronically] signed by Jose G Rosas PT on SatJun 11 2019 15:50:37 [facility]-0500 (Central Daylight Time)
[2019-06-11] MEDS: WARFARIN SODIUM 6 MG TAB PO SCH (17:00)
[2019-06-11] MEDS: DOXAZOSIN 2 MG TAB PO SCH (20:47)
[2019-06-11] MEDS: DOCUSATE NA 100 MG CAP PO SCH (20:48)
[2019-06-11] MEDS: RANITIDINE 150 MG TABLET PO SCH (20:48)
[2019-06-11] MEDS: MELATONIN 3 MG TABLET PO SCH (20:48)
[2019-06-12 06:22] LABS: Protime INR 2.43
[2019-06-12] MEDS: LIDOCAINE 4% PATCH TD SCH (06:23)
[2019-06-12 07:10] VITALS: TEMP 97.4
[2019-06-12] MEDS: CA ACETATE 667 MG CAP PO SCH ×2 (08:00→11:09)
[2019-06-12] MEDS: FEBUXOSTAT 80 MG PO SCH (08:00)
--- NOTE | 2019-06-12 09:28 | P.RH.PN ---
Estimated Length of Stay: 18 Expected Discharge Date: 06/12/19 Discharge Disposition Plan: Home Family Support: Yes Longterm Goal: Mobility, Transfers, Self Care Vital Signs: Last Vital Signs Temp 97.4 F 06/12/19 07:09 Pulse 62 06/12/19 07:09 Resp 18 06/12/19 07:09 BP 159/71 H 06/12/19 07:09 Pulse Ox 96 06/12/19 07:09 Laboratory: Laboratory Last Values WBC 5.4 K/uL (4.3-10.9) 06/11/19 05:39 RBC 3.02 M/uL (4.33-5.43) L 06/11/19 05:39 Hgb 9.7 g/dL (13.6-17.9) L 06/11/19 05:39 Hct 28.1 % (39.6-49.0) L 06/11/19 05:39 MCV 93.3 fL (80-100) 06/11/19 05:39 MCH 32.0 pg (27.0-35.0) 06/11/19 05:39 MCHC 34.3 g/dL (32.0-36.0) 06/11/19 05:39 RDW 15.9 % (12.1-15.2) H 06/11/19 05:39 Plt Count 149 K/uL (152-406) L 06/11/19 05:39 MPV 9.9 fL (7.6-11.3) D 06/11/19 05:39 Neutrophils % 66.8 % (41.7-73.7) 06/11/19 05:39 Lymphocytes % 17.4 % (15.3-44.8) 06/11/19 05:39 Monocytes % 11.4 % (3.3-12.3) 06/11/19 05:39 Eosinophils % 3.8 % (0-4.4) 06/11/19 05:39 Basophils % 0.6 % (0-1.3) 06/11/19 05:39 Absolute Neutrophils 3.6 K/uL (1.8-8.0) 06/11/19 05:39 Absolute Lymphocytes 0.9 K/uL (0.7-4.9) 06/11/19 05:39 Absolute Monocytes 0.6 K/uL (0.1-1.3) 06/11/19 05:39 Absolute Eosinophils 0.2 K/uL (0-0.5) 06/11/19 05:39 Absolute Basophils 0.0 K/uL (0-0.5) 06/11/19 05:39 PT 27.7 SECONDS (9.5-12.5) H 06/12/19 05:54 INR 2.43 06/12/19 05:54 pH 7.36 (7.35-7.45) 05/30/19 17:30 pCO2 46.5 mmHG (35-45) H 05/30/19 17:30 pO2 68.4 mmHG (75-100) L 05/30/19 17:30 HCO3 25.6 mmol/L (22-28) 05/30/19 17:30 Base Excess 0.8 mmol/L 05/30/19 17:30 Oxyhemoglobin 89.5 % (94-97) L 05/30/19 17:30 ABG O2 Sat (Measured) 91.6 % (92-98.5) L 05/30/19 17:30 ABG Carboxyhemoglobin 1.6 % (0-1.5) H 05/30/19 17:30 ABG Methemoglobin 0.7 % (0-1.5) 05/30/19 17:30 Other Total Hgb 10.1 g/dl (12-18) L 05/30/19 17:30 Inspired O2 21.0 % 05/30/19 17:30 Sodium 140 mmol/L (136-145) 06/11/19 05:39 Potassium 4.3 mmol/L (3.5-5.1) 06/11/19 05:39 Chloride 105 mmol/L (98-107) 06/11/19 05:39 Carbon Dioxide 29 mmol/L (21-32) 06/11/19 05:39 BUN 40 mg/dL (7-18) H D 06/11/19 05:39 Creatinine 5.75 mg/dL (0.55-1.3) H* D 06/11/19 05:39 Estimated GFR 10 mL/min (=/>90) L 06/11/19 05:39 Glucose 86 mg/dL (74-106) 06/11/19 05:39 POC Glucose 100 mg/dl (65-120) 05/30/19 17:11 Uric Acid 5.0 mg/dL (3.5-7.2) 06/08/19 05:34 Calcium 8.9 mg/dL (8.5-10.1) 06/11/19 05:39 Phosphorus 7.9 mg/dL (2.5-4.9) H 06/08/19 05:34 Magnesium 2.2 mg/dL (1.8-2.4) D 06/11/19 05:39 Total Bilirubin 0.3 mg/dL (0.2-1.0) 06/08/19 05:34 AST 19 U/L (15-37) 06/08/19 05:34 ALT 22 U/L (12-78) 06/08/19 05:34 Alkaline Phosphatase 77 U/L (45-117) 06/08/19 05:34 Ammonia 17 umol/L (19-54) L 05/30/19 18:01 Serum Total Protein 6.3 g/dL (6.4-8.2) L 06/08/19 05:34 Albumin 3.1 g/dL (3.4-5.0) L 06/11/19 05:39 Globulin 3.2 g/dL (2.3-3.5) 06/08/19 05:34 Albumin/Globulin Ratio 1.0 (1.1-1.8) L 06/08/19 05:34 Prealbumin 25.7 mg/dL (20-40) 06/11/19 05:39 Urine Color Yellow 05/27/19 01:15 Urine Appearance Clear 05/27/19 01:15 Urine pH 6.5 (5.0-7.0) 05/27/19 01:15 Ur Specific Vista 1.020 (1.005-1.030) 05/27/19 01:15 Urine Ketones Negative (NEG) 05/27/19 01:15 Urine Blood Trace (NEG) H 05/27/19 01:15 Urine Nitrite Negative (NEG) 05/27/19 01:15 Urine Bilirubin Negative (NEG) 05/27/19 01:15 Urine Urobilinogen 0.2 mg/dL (0.2-1.0) 05/27/19 01:15 Ur Leukocyte Esterase Negative (NEG) 05/27/19 01:15 Urine RBC <5 /HPF (NONE SEEN) 05/27/19 01:15 Urine WBC <5 /HPF (<5) 05/27/19 01:15 Ur Squamous Epith Cells <5 /HPF (NONE SEEN) 05/27/19 01:15 Ur Urothelial Cells <5 /HPF (NONE SEEN) 05/27/19 01:15 Urine Bacteria <20 /HPF (NONE SEEN) 05/27/19 01:15 Urine Culture Reflexed Not needed 05/27/19 01:15 Urine Glucose Trace (NEG) 05/27/19 01:15 Urine Total Protein 3+ (NEG) H 05/27/19 01:15 Weight: 257 lb 8 oz Wound Present: No Closed Surgical Incision Present: No Negative Pressure Wound Therapy Present: No Physician Update: His labs were reviewed. 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 He will have dialysis today then go home. He is modified independent with phsical and occupational therapy. He will have outpatient rehab. Medical Issues: Patient is having dialysis 3x/week, no urine output. Bowel is always continent. Pain Issues: Tylenol 650mg Daily PRN PO Functional Improvement: pt demonstrated progress throughout the week and has met his functional goals. pt is set for home discharge tomorrow and is able to perform functional mobility Independently using a RW. pt has improved his balance, strength, and safety awareness throughout this past week. Functional Improvement Occupational Therapy: pt can benifit with further therapy to address pt's overall weakness, safety awareness and cont to educate and train pt in energy conservation techniques for adl tasks and for Iadl's when d/cing home. pt will have home health coming to the home upon d/c. Cont with the POC and the goals by the supervising OTR. Speech Therapy Update: Patient has made significant progress on his overall cognitive and his speech goals in the last week. He obtained a 29/30 on the MMSE. He has demonstrated the ability to implement compensatory strategies to increase delayed recall for novel information at 80-100% accuracy. He requests repetition and for speaker to speak louder when he cannot hear. He is at MOD I for all speech/language functions; auditory comprehension, verbal expression, social interaction, problem solving, and memory Summary: Patient's care plan and halfway goals have been reviewed and revised as necessary. Please see the Rehabilitation Signature page for all necessary signatures.
[2019-06-12] MEDS: [UNRECOGNIZED DRUG - OTHER] PO SCH (11:09)
[2019-06-12] MEDS: LORATADINE 10 MG TAB PO SCH (11:10)
[2019-06-12] MEDS: DIPHENHYDRAMINE 25 MG TAB/CAP PO SCH (11:10)
[2019-06-12] MEDS: METOPROLOL XL 25 MG TAB PO SCH (11:10)
[2019-06-12] MEDS: DULOXETINE 20 MG CAP PO SCH (11:10)
[2019-06-12] MEDS: LOSARTAN POTASSIUM 50 MG TABLET PO SCH (11:11)
[2019-06-12] MEDS: MULTIVITAMINS,THERAPEUT 1 TAB PO SCH (11:11)
[2019-06-12] MEDS: CYANOCOBALAMIN 1,000 MCG TAB PO SCH (11:12)
[2019-06-12 11:13] VITALS: BP 149/85
== END 2019-06-12 13:00 | disposition home or self-care (01) | DRG 559 ==
LOC: 5TH 05-26 13:40
PROVIDERS: ADMIT Psychiatry & Neurology Neurology with Special Qualifications in Child Neurology; ATTEND Psychiatry & Neurology Neurology with Special Qualifications in Child Neurology
DX: S72.142D Displaced intertrochanteric fracture of left femur, subsequent encounter for closed fracture with routine healing (principal); N18.6 End stage renal disease; I13.2 Hypertensive heart and chronic kidney disease with heart failure and with stage 5 chronic kidney disease, or end stage renal disease; I50.32 Chronic diastolic (congestive) heart failure; N25.81 Secondary hyperparathyroidism of renal origin; R00.1 Bradycardia, unspecified; F03.90 Unspecified dementia, unspecified severity, without behavioral disturbance, psychotic disturbance, mood disturbance, and anxiety; E87.5 Hyperkalemia; D63.1 Anemia in chronic kidney disease; R53.1 Weakness; R05 Cough; Z99.2 Dependence on renal dialysis; Z79.01 Long term (current) use of anticoagulants
CPT/HCPCS: 36415; 70551; 80048; 80053; 81001; 82040; 82140; 82805; 82962; 83735; 84100; 84134; 84550; 85025; 85610; 87086; 87088; 90935; 92523; 97110; 97112; 97116; 97124; 97127; 97161; 97530; 97542; J0583; J1644; J2250; J7120

== ENCOUNTER 2019-07-13 21:51 | Emergency (ER) | payer OTHER ==
[2019-07-13] MEDS ORDERED: ONDANSETRON 4 MG/2 ML VIAL ONE (22:20)
[2019-07-13] MEDS ORDERED: MORPHINE 2 MG/ML SYR ONE (22:20)
[2019-07-13] MEDS ORDERED: TRAMADOL HCL 50 MG TAB ONE (23:01)
--- NOTE | 2019-07-13 23:49 | EDPHYS ---
Physician Documentation [facility] Name: Sunny Small Age: 84 yrs Sex: Male : 1935 Arrival Date: 07/13/2019 Time: 21:59 Bed 8 Private MD: ED Physician Andrea Frye HPI: 07/13 22:41 This 84 yrs old Male presents to ER via EMS with complaints of Fall Injury. tw4 22:41 Details of fall: The patient fell from an upright position, while standing. Onset: The tw4 symptoms/episode began/occurred today. Associated injuries: The patient sustained left hip, decreased range of motion. Severity of symptoms: At their worst the symptoms were moderate, in the emergency department the symptoms are unchanged. The patient has experienced a previous episode. Historical: - Allergies: 22:17 Codeine; fc 22:17 Morphine; fc - Home Meds: 22:17 sevelamer HCl oral oral 1 tab 3 times per day [Active]; tropol XL 100mg twice a day fc take only if systolic BP is over 150 on days getting dialysis [Active]; Allopurinol 80mg Oral once daily [Active]; ranitidine HCl 150 mg Oral cap nightly [Active]; Warfarin 4.5mg once a day Oral 1 tab [Active]; Lucila-Tenzin Oral daily [Active]; Vitamin D Oral 50,000 unit q saturday [Active]; doxazosin 2 mg Oral tab take if systolic BP over 170 [Active]; L-Lysine 500 mg Oral tab daily [Active]; I-Caps 280-10-2 mg oral cap daily [Active]; Vitamin B-12 2,000 mcg Oral TbER nightly [Active]; Tylenol PM Extra Strength 25-500 mg oral tab 2 tabs qhs prn [Active]; - PMHx: 22:17 PE; DVT; ESRD; Gout; hemodialysis; Hypertension; kidney cancer; fc - PSHx: 22:17 R Nephrectomy (Cancer); L hip; green field filter; Knee surgery; fc - Immunization history: Last tetanus immunization: unknown. - Social history:: Smoking status: Patient/guardian denies using tobacco, Patient/guardian denies using alcohol, street drugs. - Ebola Screening: : Patient negative for fever greater than or equal to 101.5 degrees Fahrenheit, and additional compatible Ebola Virus Disease symptoms Patient denies exposure to infectious person Patient denies travel to an Ebola-affected area in the 21 days before illness onset. ROS: 22:41 Constitutional: Negative for fever, chills, and weight loss, Eyes: Negative for injury, tw4 pain, redness, and discharge, Cardiovascular: Negative for chest pain, palpitations, and edema, Respiratory: Negative for shortness of breath, cough, wheezing, and pleuritic chest pain, Abdomen/GI: Negative for abdominal pain, nausea, vomiting, diarrhea, and constipation, Skin: Negative for injury, rash, and discoloration, Neuro: Negative for headache, weakness, numbness, tingling, and seizure. 22:41 MS/extremity: Positive for pain, tenderness. tw4 Exam: 22:44 Constitutional: This is a well developed, well nourished patient who is awake, alert, tw4 and in no acute distress. Head/Face: Normocephalic, atraumatic. Chest/axilla: Normal chest wall appearance and motion. Nontender with no deformity. No lesions are appreciated. Cardiovascular: Regular rate and rhythm with a normal S1 and S2. No gallops, murmurs, or rubs. Normal PMI, no JVD. No pulse deficits. Respiratory: Lungs have equal breath sounds bilaterally, clear to auscultation and percussion. No rales, rhonchi or wheezes noted. No increased work of breathing, no retractions or nasal flaring. Abdomen/GI: Soft, non-tender, with normal bowel sounds. No distension or tympany. No guarding or rebound. No evidence of tenderness throughout. Back: No spinal tenderness. No costovertebral tenderness. Full range of motion. Neuro: Awake and alert, GCS 15, oriented to person, place, time, and situation. Cranial nerves II-XII grossly intact. Motor strength 5/5 in all extremities. Sensory grossly intact. Cerebellar exam normal. Normal gait. 22:44 Musculoskeletal/extremity: Extremities: noted in the left leg: Vital Signs: 21:48 BP 171 / 84; Pulse 78; Resp 18; Temp 98.1(O); Pulse Ox 96% on R/A; Weight 115 kg (R); fc Height 6 ft. 2 in. (187.96 cm) (R); Pain 3/10; 22:50 BP 158 / 74; Pulse 76; Resp 18; Pulse Ox 96% ; ea 23:20 BP 123 / 86; Pulse 79; Resp 18; Pulse Ox 95% on R/A; ea 23:52 BP 174 / 82; Pulse 78; Resp 18; Pulse Ox 95% on R/A; ea 07/14 00:15 BP 175 / 79; Pulse 80; Resp 18; Pulse Ox 98% on R/A; ea 07/13 21:48 Body Mass Index 32.55 (115.00 kg, 187.96 cm) fc Christina Coma Score: 07/13 21:48 Eye Response: spontaneous(4). Verbal Response: oriented(5). Motor Response: obeys fc commands(6). Total: 15. 22:50 Eye Response: spontaneous(4). Verbal Response: oriented(5). Motor Response: obeys ea commands(6). Total: 15. 07/14 00:15 Eye Response: spontaneous(4). Verbal Response: oriented(5). Motor Response: obeys ea commands(6). Total: 15. Trauma Score (Adult): 07/13 21:48 Eye Response: spontaneous(1); Verbal Response: oriented(1); Motor Response: obeys fc commands(2); Systolic BP: > 89 mm Hg(4); Respiratory Rate: 10 to 29 per min(4); Christina Score: 15; Trauma Score: 12 MDM: 22:00 Patient medically screened. tw4 07/14 03:10 Differential diagnosis: contusion. Data reviewed: vital signs, nurses notes. Data tw4 interpreted: Pulse oximetry: Interpretation:. Counseling: I had a detailed discussion with the patient and/or guardian regarding: the historical points, exam findings, and any diagnostic results supporting the discharge/admit diagnosis. Medical screen evaluation completed. EMTALA emergency medical condition absent. Medication response: tramadol. Response to treatment: There is no appreciated change of the patient's symptoms at this time. Special discussion: Based on the patient's history, exam and DX evaluation, there is no indication for emergent intervention or inpatient TX. It is understood by the patient/guardian that if the SXs persist or worsen they need to return immediately for re-evaluation. I discussed with the patient/guardian in detail that at this point there is no indication for admission to the hospital. It is understood, however, that if the symptoms persist or worsen the patient needs to return immediately for re-evaluation. 07/13 22:01 Order name: CT Head C Spine tw4 07/13 22:02 Order name: Knee Left 2 View XRAY tw4 07/13 22:05 Order name: Hip Left 2 View EDMS Administered Medications: 07/13 22:41 Not Given (Other Intervention Used): morphine 2 mg IVP once; RASS on ADMIN: Combtv4, ea Very Agttd3, Agttd2, Rstlss1, AlertClm0, Drwsy-1, Lt Sdtn-2, Mod Sdtn-3, Dp Sdtn-4, UnArsble-5 23:05 Drug: traMADol 50 mg {Note: RASS 0.} Route: PO; ea 23:51 Follow up: Response: No adverse reaction; Pain is decreased; RASS: Alert and Calm (0) ea 23:51 Not Given (Physician Discretion): Zofran 4 mg IVP once; over 2 minutes ea 07/14 00:10 Drug: fentaNYL (PF) 25 mcg Route: IVP; Site: right forearm; ea 00:19 Follow up: Response: No adverse reaction; Pain is decreased ea Disposition: 07/13/19 23:48 Discharged to Home. Impression: Contusion of unspecified part of head, Pain in left hip. - Condition is Stable. - Discharge Instructions: Joint Pain, Contusion, Hip Pain. - Prescriptions for Tramadol 50 mg Oral Tablet - take 1 tablet by ORAL route every 8 hours as needed; 12 tablet. - Medication Reconciliation Form, Thank You Letter, Antibiotic Education, Prescription Opioid Use form. - Follow up: Private Physician; When: Upon discharge from the Emergency Department; Reason: Recheck today's complaints, Continuance of care. - Problem is new. - Symptoms have improved. Signatures: Dispatcher [employer] EDMS Anuja Bah RN Suki Tijerina RN RN ea Wadley, Terrence, MD MD tw4 Corrections: (The following items were deleted from the chart) 07/13 22:05 22:02 Hip Left 1 View+RAD.RAD.BRZ ordered. EDMS EDMS 07/14 00:27 07/13 23:48 07/13/2019 23:48 Discharged to Home. Impression: Contusion of unspecified ea part of head; Pain in left hip. Condition is Stable. Forms are Medication Reconciliation Form, Thank You Letter, Antibiotic Education, Prescription Opioid Use. Follow up: Private Physician; When: Upon discharge from the Emergency Department; Reason: Recheck today's complaints, Continuance of care. Problem is new. Symptoms have improved. tw4
--- NOTE | 2019-07-13 23:49 | ER ---
Nurse's Notes [facility] Name: Sunny Small Age: 84 yrs Sex: Male : 1935 Arrival Date: 07/13/2019 Time: 21:59 Bed 8 Private MD: Diagnosis: Contusion of unspecified part of head;Pain in left hip Presentation: 07/13 21:48 Presenting complaint: EMS states: that pt was going to sit down and tripped. He fell on his left hip and hit his head on the stool. Complaining of pain to left hip and left knee. Denies any LOC. Pt is on dialysis and see's Dr Aguilar and goes MWF. Care prior to arrival: IV initiated. 20 GA, in the right wrist. Mechanism of Injury: Fall from standing position. Trauma event details: Injury occurred in the [facility], Injury occurred: at home. Injury occurred: July 13, 2019. 21:48 Acuity: JEAN 2 21:48 Method Of Arrival: EMS: [facility] 21:48 Transition of care: patient was not received from another setting of care. Onset of fc symptoms was July 13, 2019. Risk Assessment: Do you want to hurt yourself or someone else? Patient reports no desire to harm self or others. Initial Sepsis Screen: Does the patient meet any 2 criteria? No. Patient's initial sepsis screen is negative. Does the patient have a suspected source of infection? No. Patient's initial sepsis screen is negative. Trauma Activation: Alert Physician: ED Physician; Name: Melav; Notified At: 21:47; Arrived At: 21:47 Physician: General Surgeon; Name: ; Notified At: 21:47; Arrived At: Physician: Radiology; Name: heaven Morales, Flora, and Marcos; Notified At: 21:47; Arrived At: 21:48 Physician: Respiratory; Name: ; Notified At: 21:47; Arrived At: Physician: Lab; Name: ; Notified At: 21:47; Arrived At: Historical: - Allergies: 22:17 Codeine; fc 22:17 Morphine; fc - Home Meds: 22:17 sevelamer HCl oral oral 1 tab 3 times per day [Active]; tropol XL 100mg twice a day fc take only if systolic BP is over 150 on days getting dialysis [Active]; Allopurinol 80mg Oral once daily [Active]; ranitidine HCl 150 mg Oral cap nightly [Active]; Warfarin 4.5mg once a day Oral 1 tab [Active]; Lucila-Tenzin Oral daily [Active]; Vitamin D Oral 50,000 unit q saturday [Active]; doxazosin 2 mg Oral tab take if systolic BP over 170 [Active]; L-Lysine 500 mg Oral tab daily [Active]; I-Caps 280-10-2 mg oral cap daily [Active]; Vitamin B-12 2,000 mcg Oral TbER nightly [Active]; Tylenol PM Extra Strength 25-500 mg oral tab 2 tabs qhs prn [Active]; - PMHx: 22:17 PE; DVT; ESRD; Gout; hemodialysis; Hypertension; kidney cancer; fc - PSHx: 22:17 R Nephrectomy (Cancer); L hip; green field filter; Knee surgery; fc - Immunization history: Last tetanus immunization: unknown. - Social history:: Smoking status: Patient/guardian denies using tobacco, Patient/guardian denies using alcohol, street drugs. - Ebola Screening: : Patient negative for fever greater than or equal to 101.5 degrees Fahrenheit, and additional compatible Ebola Virus Disease symptoms Patient denies exposure to infectious person Patient denies travel to an Ebola-affected area in the 21 days before illness onset. Screenin:48 Abuse screen: Denies threats or abuse. Tuberculosis screening: No symptoms or risk fc factors identified. 21:48 Nutritional screening: No deficits noted. Fall Risk Fall in past 12 months (25 points). fc Secondary diagnosis (15 points) impaired mobility, IV access (20 points). Ambulatory Aid- Crutches/Cane/Walker (15 pts). Gait- Weak (10 pts.). Mental Status- Overestimates/Forgets Limitations (15 pts.). Total Low Fall Scale indicates High Risk Score (45 or more points). Fall prevention measures have been instituted. Side Rails Up X 2 Placed Close to Nursing Station Frequent Obs/Assessments Occuring As available patient and family educated on Fall Prevention Program and Strategies. Primary Survey: 21:50 NO uncontrolled hemorrhage observed. Breathing/Chest: Respiratory pattern: regular, ea Respiratory effort: spontaneous, unlabored. Circulation: Skin temperature: warm. Disability Alert. Exposure/Environment: A warming method has been applied: A warm blanket has been provided to the patient. 22:50 Reassessment Airway Airway Patent Breathing/Chest Respiratory pattern Regular ea Respiratory effort Spontaneous Unlabored Circulation Temperature Warm Disability Alert. Secondary Survey: 21:50 Musculoskeletal: Parent/caregiver report the patient having pain in left hip. ea Assessment: 21:50 General: Appears uncomfortable, Behavior is calm, cooperative, appropriate for age. ea Pain: Complains of pain in left leg and left hip. Neuro: Level of Consciousness is awake, alert, obeys commands, Oriented to person, place, time, situation. Cardiovascular: Patient's skin is warm and dry. Respiratory: Airway is patent Respiratory effort is even, unlabored, Respiratory pattern is regular, symmetrical. Derm: Skin is pink, warm \T\ dry. Musculoskeletal: Reports pain in left leg and left hip. 22:50 Reassessment: Patient and/or family updated on plan of care and expected duration. Pain ea level reassessed. Patient is alert, oriented x 3, equal unlabored respirations, skin warm/dry/pink. 07/14 00:20 Reassessment: Patient and/or family updated on plan of care and expected duration. Pain ea level reassessed. Patient is alert, oriented x 3, equal unlabored respirations, skin warm/dry/pink. Discharge instruction given to patient and , both verbalized the understanding of instruction. Pt left ED via wheelchair accompanied by , pt tolerating well. Vital Signs: 07/13 21:48 BP 171 / 84; Pulse 78; Resp 18; Temp 98.1(O); Pulse Ox 96% on R/A; Weight 115 kg (R); fc Height 6 ft. 2 in. (187.96 cm) (R); Pain 3/10; 22:50 BP 158 / 74; Pulse 76; Resp 18; Pulse Ox 96% ; ea 23:20 BP 123 / 86; Pulse 79; Resp 18; Pulse Ox 95% on R/A; ea 23:52 BP 174 / 82; Pulse 78; Resp 18; Pulse Ox 95% on R/A; ea 07/14 00:15 BP 175 / 79; Pulse 80; Resp 18; Pulse Ox 98% on R/A; ea 07/13 21:48 Body Mass Index 32.55 (115.00 kg, 187.96 cm) fc [place] Coma Score: 07/13 21:48 Eye Response: spontaneous(4). Verbal Response: oriented(5). Motor Response: obeys fc commands(6). Total: 15. 22:50 Eye Response: spontaneous(4). Verbal Response: oriented(5). Motor Response: obeys ea commands(6). Total: 15. 07/14 00:15 Eye Response: spontaneous(4). Verbal Response: oriented(5). Motor Response: obeys ea commands(6). Total: 15. Trauma Score (Adult): 07/13 21:48 Eye Response: spontaneous(1); Verbal Response: oriented(1); Motor Response: obeys fc commands(2); Systolic BP: > 89 mm Hg(4); Respiratory Rate: 10 to 29 per min(4); [place] Score: 15; Trauma Score: 12 ED Course: 21:48 Patient has correct armband on for positive identification. Placed in gown. Bed in low fc position. Call light in reach. Side rails up X2. 21:48 Arm band placed on Patient placed in an exam room, on a stretcher. fc 21:48 Patient maintains SpO2 saturation greater than 95% on room air. fc 21:50 Thermoregulation: warm blanket given to patient. fc 21:59 Patient arrived in ED. fc 21:59 Andrea Frye MD is Attending Physician. tw4 22:04 Triage completed. fc 22:24 CT Head C Spine In Process Unspecified. EDMS 22:36 Knee Left 2 View XRAY In Process Unspecified. EDMS 22:36 Hip Left 2 View In Process Unspecified. EDMS 23:08 Suki Valente, RN is Primary Nurse. ea 23:51 No provider procedures requiring assistance completed. ea 07/14 00:19 IV discontinued, intact, bleeding controlled, No redness/swelling at site. Pressure ea dressing applied. Administered Medications: 07/13 22:41 Not Given (Other Intervention Used): morphine 2 mg IVP once; RASS on ADMIN: Combtv4, ea Very Agttd3, Agttd2, Rstlss1, AlertClm0, Drwsy-1, Lt Sdtn-2, Mod Sdtn-3, Dp Sdtn-4, UnArsble-5 23:05 Drug: traMADol 50 mg {Note: RASS 0.} Route: PO; ea 23:51 Follow up: Response: No adverse reaction; Pain is decreased; RASS: Alert and Calm (0) ea 23:51 Not Given (Physician Discretion): Zofran 4 mg IVP once; over 2 minutes ea 07/14 00:10 Drug: fentaNYL (PF) 25 mcg Route: IVP; Site: right forearm; ea 00:19 Follow up: Response: No adverse reaction; Pain is decreased ea Intake: 07/13 23:52 PO: 0ml; Total: 0ml. ea Outcome: 23:48 Discharge ordered by . tw4 23:52 Patient's length of stay was not longer than 2 hours. ea 07/14 00:19 Discharged to home via wheelchair, with significant other. ea Condition: stable Discharge instructions given to patient, family, Instructed on discharge instructions, follow up and referral plans. Demonstrated understanding of instructions, follow-up care. 00:27 Patient left the ED. ea Signatures: Dispatcher [employer] EDAnuja Alvarez, RN Suki Tijerina, RN Andrea Zimmer ea, MD MD tw4
[2019-07-14] MEDS ORDERED: FENTANYL CITR 100 MCG/2 ML ONE (00:01)
[2019-07-14 00:44] VITALS: O2SAT 95
[2019-07-14 00:47] VITALS: BP 174/82
--- NOTE | 2019-07-14 08:21 | RAD REPORT ---
EXAM DESCRIPTION: RAD - Knee Left 2 View - 07/13/2019 10:34 pm CLINICAL HISTORY: PAIN COMPARISON: No comparisons FINDINGS: Left total knee arthroplasty is noted. No evidence of hardware loosening. Inferior-most sc rew traversing the left femur intramedullary loi appears fractured.
--- NOTE | 2019-07-14 08:22 | RAD REPORT ---
EXAM DESCRIPTION: RAD - Hip Left 2 View - 07/13/2019 10:34 pm CLINICAL HISTORY: PAIN COMPARISON: Hip Left 2 View dated 06/05/2019; Hip Left 2 View dated 01/22/2011 FINDINGS: Proximal left femoral hardware is present without evidence of loosening or infection. Hete rotopic bone is present along the lesser trochanter. No acute abnormality seen.
--- NOTE | 2019-07-14 10:47 | RAD REPORT ---
EXAM DESCRIPTION: Head C Spine Mpr Wo Con CLINICAL HISTORY: PAIN COMPARISON: 05/22/2019 TECHNIQUE: Axial CT of the head obtained from the skull apex to the skull base without contrast. Axi al CT images of the cervical spine obtained from the skull base through the thoracic inlet. Sagittal and coronal reformatted images available. FINDINGS: CT head: No acute intracranial hemorrhage identified. No mass, mass effect, shift of the midline, abnormal ext ra-axial fluid collection or CT evidence of acute ischemic change identified. The ventricular system is enlarged relative to the sulcal spaces. Scattered areas of hypodensity throughout the supratento rial white matter are nonspecific and could represent sequela of chronic small vessel ischemic change . The visualized paranasal sinuses and the mastoids are clear. No skull fracture identified. Visualized orbits and globes are unremarkable. Cervical CT: Alignment of the cervical spine is maintained without evidence of subluxation. The atlantoaxial, at lantodental, and occipitoatlantal intervals are preserved. No fracture identified. Vertebral body h eight preserved. Prevertebral soft tissues are unremarkable. Multilevel mild to moderate loss of intervertebral disc height with endplate spondylosis, facet arthr opathy, and uncovertebral spurring. Mild multilevel osseous neural foraminal narrowing. Visualized skull base is intact. No fracture of the visualized facial bones. Visualized mastoid air c ells and paranasal sinuses are well aerated. Visualized thyroid is unremarkable. No cervical lymphadenopathy. No pneumothorax in the visualized lung apices. Atherosclerotic calcification of the aortic arch and carotid arteries. IMPRESSION: 1. No acute intracranial abnormality. 2. No acute fracture or subluxation of the cervical spine. 3. Multilevel degenerative change of the cervical spine. This exam was performed according to our departmental dose-optimization program, which includes autom ated exposure control, adjustment of the mA and/or kV according to patient size and/or use of iterati ve reconstruction technique. Electronically signed by: Puneet Barakat 07/13/2019 10:42 PM [employer]ATION DEPARTMENT Due to temporary technical issues with the PACS/Fluency reporting system, reports are being signed by the in house radiologist as a courtesy to ensure prompt reporting. The interpreting radiologist is f ully responsible for the content of the report.
== END 2019-07-14 00:27 | disposition home or self-care (01) ==
LOC: ER 21:51
DX: S00.93XA Contusion of unspecified part of head, initial encounter (principal); W19.XXXA Unspecified fall, initial encounter; Y93.89 Activity, other specified; Y92.9 Unspecified place or not applicable; I12.0 Hypertensive chronic kidney disease with stage 5 chronic kidney disease or end stage renal disease; N18.6 End stage renal disease; Z79.01 Long term (current) use of anticoagulants; Z99.2 Dependence on renal dialysis; Z85.528 Personal history of other malignant neoplasm of kidney; Z88.5 Allergy status to narcotic agent
CPT/HCPCS: 70450; 72125; 96374; 99284; J2270; J2405; J3010

== ENCOUNTER 2019-07-15 06:34 | Inpatient (IN) | payer OTHER ==
[2019-07-15 07:49] LABS: Absolute Lymphocytes (CBC) 0.6 K/uL (0.7-4.9); Basophils % 0.3 % (0-1.3); Lymphocytes % 8.7 % (15.3-44.8); MPV 9.4 fL (7.6-11.3); RBC Red Blood Cell Count 3.59 M/uL (4.33-5.43)
[2019-07-15 07:53] LABS: Protime INR 1.88
[2019-07-15 08:30] LABS: Albumin 3.5 g/dL (3.4-5.0); Bilirubin Direct 0.2 mg/dL (0-0.2); Bilirubin Total 0.5 mg/dL (0.2-1.0); Magnesium 2.4 mg/dL (1.8-2.4); Potassium 5.1 mmol/L (3.5-5.1); Protein, Total 7.4 g/dL (6.4-8.2); Troponin (Emerg Dept Use Only) 0.03 ng/mL (0.0-0.045)
--- NOTE | 2019-07-15 09:30 | ER ---
Nurse's Notes [facility] Name: Sunny Small Age: 84 yrs Sex: Male : 1935 Arrival Date: 07/15/2019 Time: 06:35 Bed 17 Private MD: Diagnosis: Weakness;Slurred speech;Renal Failure, missed dialysis Presentation: 07/15 06:48 Presenting complaint: EMS states: Pt was in [facility] for his scheduled HD, Pt wh with severe weakness took 3 staff to get him off his car, Staff stated Pt was AOx2 and with upper extremity tremors. Transition of care: patient was not received from another setting of care. Onset of symptoms was July 15, 2019. Risk Assessment: Do you want to hurt yourself or someone else? Patient reports no desire to harm self or others. Initial Sepsis Screen: Does the patient meet any 2 criteria? No. Patient's initial sepsis screen is negative. Does the patient have a suspected source of infection? No. Patient's initial sepsis screen is negative. Care prior to arrival: None. 06:48 Method Of Arrival: EMS: [facility] 06:48 Acuity: JEAN 3 Historical: - Allergies: 06:52 Codeine; 06:52 Morphine; - Home Meds: 06:53 Allopurinol 80mg Oral once daily [Active]; doxazosin 2 mg Oral tab take if systolic BP wh over 170 [Active]; I-Caps 280-10-2 mg Oral cap daily [Active]; L-Lysine 500 mg Oral tab daily [Active]; ranitidine HCl 150 mg Oral cap nightly [Active]; Lucila-Tenzin Oral daily [Active]; sevelamer HCl Oral 1 tab 3 times per day [Active]; tropol XL 100mg twice a day take only if systolic BP is over 150 on days getting dialysis [Active]; Tylenol PM Extra Strength 25-500 mg Oral tab 2 tabs qhs prn [Active]; Vitamin B-12 2,000 mcg Oral TbER nightly [Active]; Vitamin D Oral 32656 unit q saturday [Active]; Warfarin 4.5mg once a day Oral 1 tab [Active]; - PMHx: 06:52 DVT; ESRD; hemodialysis; Gout; Hypertension; kidney cancer; PE; wh - Immunization history:: Adult Immunizations up to date. - Social history:: Smoking status: Patient/guardian denies using tobacco. - Ebola Screening: : Patient negative for fever greater than or equal to 101.5 degrees Fahrenheit, and additional compatible Ebola Virus Disease symptoms Patient denies exposure to infectious person. Screenin:50 Abuse screen: Denies threats or abuse. Denies injuries from another. Nutritional wh screening: No deficits noted. Tuberculosis screening: No symptoms or risk factors identified. Fall Risk None identified. Assessment: 07:28 General: Appears in no apparent distress. Behavior is calm, cooperative. Pain: la1 Complains of pain in left hip. Neuro: Level of Consciousness is awake, alert, obeys commands, Oriented to person, place, time, situation. Cardiovascular: Capillary refill < 3 seconds Patient's skin is warm and dry. Respiratory: Airway is patent Respiratory effort is even, unlabored, Respiratory pattern is regular, symmetrical, Breath sounds are clear bilaterally. GI: Abdomen is obese, Bowel sounds present X 4 quads. : No signs and/or symptoms were reported regarding the genitourinary system. Musculoskeletal: Circulation, motion, and sensation intact. Capillary refill < 3 seconds, is brisk, in bilateral fingers. 08:57 Reassessment: Patient appears in no apparent distress at this time. No changes from la1 previously documented assessment. Patient and/or family updated on plan of care and expected duration. Pain level reassessed. 10:10 Reassessment: Patient appears in no apparent distress at this time. Patient and/or ca1 family updated on plan of care and expected duration. Pain level reassessed. Patient is alert, oriented x 3, equal unlabored respirations, skin warm/dry/pink. 11:13 Reassessment: Patient appears in no apparent distress at this time. Patient and/or ca1 family updated on plan of care and expected duration. Pain level reassessed. wagon driver salesperson: Tobias: [phone]. Reassessment: Pending room assignment. Pt will be taken to MRI prior to moving a room. 11:42 Reassessment: Patient appears in no apparent distress at this time. Patient is alert, ca1 oriented x 3, equal unlabored respirations, skin warm/dry/pink. 11:43 Reassessment: Pt about to go to MRI and reports he is claustrophobic, notified Dr. mona Prado. TO of Ativan 0.5 mg IV one time[address] Dr[address] Prado also notified that pt's BP at this time is 189/128, no order at this time for BP. Vital Signs: 06:41 BP 166 / 68; Pulse 71; Resp 18; Pulse Ox 94% ; mw1 07:24 Temp 98.1(O); ae4 09:22 BP 181 / 75; Pulse 80; Resp 20; Pulse Ox 95% on R/A; la1 10:15 BP 183 / 88; Pulse 81; Resp 19; Pulse Ox 92% on R/A; ca1 11:46 BP 205 / 77; Pulse 80; Resp 20; Pulse Ox 94% on R/A; mh5 ED Course: 06:35 Patient arrived in ED. ds1 06:50 Triage completed. wh 06:54 Arm band placed on. wh 06:54 Patient has correct armband on for positive identification. Bed in low position. Call light in reach. Side rails up X 1. Pulse ox on. NIBP on. 07:04 Bill Junior MD is Attending Physician. kdr 07:27 Mal Tinsley RN is Primary Nurse. la1 07:28 No provider procedures requiring assistance completed. Inserted saline lock: 20 gauge la1 in right antecubital area, using aseptic technique. Blood collected. 07:30 XRAY Chest (1 view) In Process Unspecified. EDMS 07:35 EKG done, by ED staff, reviewed by Bill Junior MD. mh5 07:36 Placed in gown. Side rails up X2. Adult w/ patient. Warm blanket given. hand washer mh5 on. Pulse ox on. NIBP on. 09:11 CT Head Brain wo Cont In Process Unspecified. EDMS 09:27 Callie Prado MD is Hospitalizing Provider. kdr 10:57 Patient admitted, IV remains in place. ca1 Administered Medications: 11:51 Drug: Ativan 0.5 mg Route: IVP; Site: right antecubital; ca1 11:53 Follow up: Pt taken to MRI ca1 Intake: Outcome: 09:29 Decision to Hospitalize by Provider. kdr 11:51 Admitted to Tele family with patient, via stretcher, room 414, with chart, Other Pt ca1 taken to MRI before going to room with semiconductor processing technician and family Report called to CALISTA Juarez 11:51 Condition: stable 11:51 Instructed on the need for admit. 11:54 Patient left the ED. ca1 Signatures: Dispatcher [employer] Bill Alegria MD MD [facility] Riaz, Micaela ds1 Mal Tinsley RN RN la1 Renetta Peacock 5 Tory, Ernie 1 Arti Montejo Anu Cm RN RN ca1 Neal Avilez RN RN ae4
--- NOTE | 2019-07-15 09:30 | EDPHYS ---
Physician Documentation [facility] Name: Sunny Small Age: 84 yrs Sex: Male : 1935 Arrival Date: 07/15/2019 Time: 06:35 Bed 17 Private MD: ED Physician Bill Junior HPI: 07/15 07:20 This 84 yrs old Male presents to ER via EMS with complaints of shaking and kdr weakness. 07:20 The dropped the patient at dialysis this morning. She noted that he was more kdr tremulous, shaking (upper extremity) and altered but she thought if was was dialyzed he might improve. HD Center evaluated him and immediately called EMS to transport the patient to the hospital for these complaints. The patient states that he fell on Saturday and was evaluated in this ED at that time and discharged. Per the , he has been in a general steady state of decline since then. Today, the patient appears to have some mild expressive aphasia, is generally tremulous in his upper extremities but is oriented to time, place, person and circumstances in general.. Onset: The symptoms/episode began/occurred gradually, 3 day(s) ago. Severity of symptoms: At their worst the symptoms were mild moderate just prior to arrival, in the emergency department the symptoms are unchanged. The patient has not experienced similar symptoms in the past. The patient has been recently seen at the [facility] Emergency Department. Historical: - Allergies: 06:52 Codeine; wh 06:52 Morphine; wh - Home Meds: 06:53 Allopurinol 80mg Oral once daily [Active]; doxazosin 2 mg Oral tab take if systolic BP wh over 170 [Active]; I-Caps 280-10-2 mg Oral cap daily [Active]; L-Lysine 500 mg Oral tab daily [Active]; ranitidine HCl 150 mg Oral cap nightly [Active]; Lucila-Tenzin Oral daily [Active]; sevelamer HCl Oral 1 tab 3 times per day [Active]; tropol XL 100mg twice a day take only if systolic BP is over 150 on days getting dialysis [Active]; Tylenol PM Extra Strength 25-500 mg Oral tab 2 tabs qhs prn [Active]; Vitamin B-12 2,000 mcg Oral TbER nightly [Active]; Vitamin D Oral 27111 unit q saturday [Active]; Warfarin 4.5mg once a day Oral 1 tab [Active]; - PMHx: 06:52 DVT; ESRD; hemodialysis; Gout; Hypertension; kidney cancer; PE; wh - Immunization history:: Adult Immunizations up to date. - Social history:: Smoking status: Patient/guardian denies using tobacco. - Ebola Screening: : Patient negative for fever greater than or equal to 101.5 degrees Fahrenheit, and additional compatible Ebola Virus Disease symptoms Patient denies exposure to infectious person. ROS: 07:20 Constitutional: Negative for fever, chills, and weight loss, Eyes: Negative for injury, kdr pain, redness, and discharge, ENT: Negative for injury, pain, and discharge, Neck: Negative for injury, pain, and swelling, Cardiovascular: Negative for chest pain, palpitations, and edema, Respiratory: Negative for shortness of breath, cough, wheezing, and pleuritic chest pain, Abdomen/GI: Negative for abdominal pain, nausea, vomiting, diarrhea, and constipation, Back: Negative for injury and pain, : Negative for injury, bleeding, discharge, and swelling, MS/Extremity: Negative for injury and deformity. The patient does have generalized weakness and tremors in the upper extremiteis Psych: Negative for depression, anxiety, suicide ideation, homicidal ideation, and hallucinations, Allergy/Immunology: Negative for hives, rash, and allergies, Endocrine: Negative for neck swelling, polydipsia, polyuria, polyphagia, and marked weight changes, Hematologic/Lymphatic: Negative for swollen nodes, abnormal bleeding, and unusual bruising. 07:20 Skin: Positive for discoloration, The patient has chronic insufficiency in bilateral lower extremities.. 07:20 Neuro: Positive for altered mental status, gait disturbance, weakness, Tremors of the upper extremities. Exam: 07:20 Constitutional: This is a well developed, well nourished patient who is awake, alert, kdr and in no acute distress. Head/Face: Normocephalic, atraumatic. Eyes: Pupils equal round and reactive to light, extra-ocular motions intact. Lids and lashes normal. Conjunctiva and sclera are non-icteric and not injected. Cornea within normal limits. Periorbital areas with no swelling, redness, or edema. Neck: Trachea midline, no thyromegaly or masses palpated, and no cervical lymphadenopathy. Supple, full range of motion without nuchal rigidity, or vertebral point tenderness. No Meningismus. Chest/axilla: Normal chest wall appearance and motion. Nontender with no deformity. No lesions are appreciated. Cardiovascular: Regular rate and rhythm with a normal S1 and S2. No gallops, murmurs, or rubs. Normal PMI, no JVD. No pulse deficits. Respiratory: Lungs have equal breath sounds bilaterally, clear to auscultation and percussion. No rales, rhonchi or wheezes noted. No increased work of breathing, no retractions or nasal flaring. Abdomen/GI: Soft, non-tender, with normal bowel sounds. No distension or tympany. No guarding or rebound. No evidence of tenderness throughout. Back: No spinal tenderness. No costovertebral tenderness. Full range of motion. Skin: Warm, dry with normal turgor. Normal color with no rashes, no lesions, and no evidence of cellulitis. MS/ Extremity: Pulses equal, no cyanosis. Neurovascular intact. Full, normal range of motion. Neuro: Awake and alert, GCS 15, oriented to person, place, time, and situation. Cranial nerves II-XII grossly intact. Motor strength 5/5 in all extremities. Sensory grossly intact. Psych: Awake, alert, with orientation to person, place and time. Behavior, mood, and affect are within normal limits. Vital Signs: 06:41 BP 166 / 68; Pulse 71; Resp 18; Pulse Ox 94% ; mw1 07:24 Temp 98.1(O); ae4 09:22 BP 181 / 75; Pulse 80; Resp 20; Pulse Ox 95% on R/A; la1 10:15 BP 183 / 88; Pulse 81; Resp 19; Pulse Ox 92% on R/A; ca1 11:46 BP 205 / 77; Pulse 80; Resp 20; Pulse Ox 94% on R/A; mh5 MDM: 07:20 Data reviewed: vital signs, nurses notes, lab test result(s), EKG, radiologic studies. kdr Counseling: I had a detailed discussion with the patient and/or guardian regarding: the historical points, exam findings, and any diagnostic results supporting the discharge/admit diagnosis, lab results, radiology results. 09:29 Patient medically screened. kdr 07/15 07:05 Order name: Basic Metabolic Panel; Complete Time: 08:49 [facility] 07/15 07:05 Order name: CBC with Diff; Complete Time: 08:49 kdr 07/15 07:05 Order name: LFT's; Complete Time: 08:49 [facility] 07/15 07:05 Order name: Magnesium; Complete Time: 08:50 kdr 07/15 07:05 Order name: NT PRO-BNP; Complete Time: 08:49 [facility] 07/15 07:05 Order name: PT-INR; Complete Time: 08:49 [facility] 07/15 07:05 Order name: Troponin (emerg Dept Use Only); Complete Time: 08:50 kdr 07/15 07:05 Order name: XRAY Chest (1 view); Complete Time: 09:48 kdr 07/15 07:05 Order name: EKG; Complete Time: 07:06 [facility] 07/15 08:56 Order name: CT Head Brain wo Cont; Complete Time: 09:48 [facility] 07/15 09:53 Order name: Physical Therapy Consult [facility] 07/15 09:53 Order name: Heart Healthy [facility] 07/15 09:53 Order name: Stroke Protocol [facility] 07/15 07:05 Order name: Cardiac monitoring; Complete Time: 07:30 [facility] 07/15 07:05 Order name: EKG - Nurse/Tech; Complete Time: 07:30 [facility] 07/15 07:05 Order name: IV Saline Lock; Complete Time: 07:30 [facility] 07/15 07:05 Order name: Labs collected and sent; Complete Time: 07:30 [facility] 07/15 07:05 Order name: O2 Per Protocol; Complete Time: 07:30 [facility] 07/15 07:05 Order name: O2 Sat Monitoring; Complete Time: 07:30 kdr Administered Medications: 11:51 Drug: Ativan 0.5 mg Route: IVP; Site: right antecubital; ca1 11:53 Follow up: Pt taken to MRI ca1 Disposition: 07/15/19 09:29 Hospitalization ordered by Callie Prado for Inpatient Admission. Preliminary diagnosis are Weakness, Slurred speech, Renal Failure, missed dialysis. - Bed requested for Telemetry/MedSurg (Inpatient). - Status is Inpatient Admission. ca1 - Condition is Fair. - Problem is an acute exacerbation. - Symptoms have improved. UTI on Admission? No Signatures: Dispatcher [employer] [facility] Sunshine Berger Kevin, MD MD [facility] Gustabo, Anu Napoles, RN RN ca1 Corrections: (The following items were deleted from the chart) 07:29 07:20 The patient has not recently seen a physician, [facility] 11:23 09:29 Hospitalization Ordered by Callie Prado MD for Inpatient Admission. Preliminary bd diagnosis is Weakness; Slurred speech; Renal Failure, missed dialysis. Bed requested for Telemetry/MedSurg (Inpatient). Status is Inpatient Admission. Condition is Fair. Problem is an acute exacerbation. Symptoms have improved. UTI on Admission? No. kdr 11:54 11:23 07/15/2019 09:29 Hospitalization Ordered by Callie Prado MD for Inpatient ca1 Admission. Preliminary diagnosis is Weakness; Slurred speech; Renal Failure, missed dialysis. Bed requested for Telemetry/MedSurg (Inpatient). Status is Inpatient Admission. Condition is Fair. Problem is an acute exacerbation. Symptoms have improved. UTI on Admission? No. bd
--- NOTE | 2019-07-15 09:41 | RAD REPORT ---
EXAM DESCRIPTION: CT - Head Brain Wo Cont - 07/15/2019 9:09 am CLINICAL HISTORY: Confusion and slurred speech COMPARISON: May 2019 TECHNIQUE: Computed axial tomography of the head was obtained. IV contrast was not requested. All CT scans are performed using dose optimization technique as appropriate and may include automated exposure control or mA/KV adjustment according to patient size. FINDINGS: An intracranial bleed is not seen . Prominence of the ventricles is stable. Cerebral atrophy is noted No extra-axial fluid collection is noted. Mild low-density areas within periventricular, deep and subcortical white matter likely represent is chemic changes secondary to small vessel disease. Fluid within the sinuses/ mastoids is not seen. IMPRESSION: No acute intracranial abnormality is seen. If patient's symptoms persist MRI of the bra in would be recommended.
--- NOTE | 2019-07-15 09:47 | RAD REPORT ---
EXAM DESCRIPTION: Sera Single View07/15/2019 7:29 am CLINICAL HISTORY: Renal cell carcinoma, weakness COMPARISON: May 2019 FINDINGS: Upper lobe vessels are prominent indicative of pulmonary venous hypertension Lungs appear clear of acute infiltrate Heart is mildly enlarged
[2019-07-15] MEDS ORDERED: LORazepam 2 MG/ML VIAL ONE (11:49)
--- NOTE | 2019-07-15 12:04 | EKG ---
Test Date: 2019-07-15 Test Time: 07:28:43 [employer] Hel[employer] Machine: ELIGIO MEASUREMENT RESULTS: Intervals: Rate: 76 KS: 230 QRSD: 158 QT: 460 QTc: 517 [place]: P: 53 KS: 230 QRS: -47 T: -28 INTERPRETIVE STATEMENTS: Sinus rhythm with 1st degree AV block Possible Left atrial enlargement Right bundle branch block Left anterior fascicular block Bifascicular block Left ventricular hypertrophy with repolarization abnormality Abnormal ECG Compared to ECG 05/22/2019 07:52:16 Left anterior fascicular block now present Bifascicular block now present Left ventricular hypertrophy now present Early repolarization now present Sinus bradycardia no longer present Ventricular premature complex(es) no longer present Electronically Signed On 07-15-19 12:03:22 ASSOCIATE PROFESSOR OF ARCHAEOLOGY by Malik Artis
--- NOTE | 2019-07-15 12:54 | RAD REPORT ---
EXAM DESCRIPTION: Justyna Angio07/15/2019 12:29 pm CLINICAL HISTORY: CVA COMPARISON: None TECHNIQUE: 50 cc Isovue 370 was administered intravenously. 3D MIP reconstruction performed All CT scans are performed using dose optimization technique as appropriate and may include automated exposure control or mA/KV adjustment according to patient size. 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 Mild 0-49% stenosis Moderate 50-69% stenosis Severe 70-99% stenosis
--- NOTE | 2019-07-15 12:54 | RAD REPORT ---
EXAM DESCRIPTION: CTHead angio07/15/2019 12:29 pm CLINICAL HISTORY: CVA COMPARISON: None TECHNIQUE: CT angiogram of the head was obtained. 3D MIPS reconstruction performed. All CT scans are performed using dose optimization technique as appropriate and may include automated exposure control or mA/KV adjustment according to patient size. FINDINGS: The basilar, internal carotid, anterior cerebral, middle cerebral and posterior cerebral a rteries are normal caliber. An aneurysm is not seen. Course calcifications involve the distal interna l carotid arteries bilaterally The A1 segment of right anterior cerebral artery is hypoplastic A significant stenosis is not noted. IMPRESSION: No acute abnormality is displayed
[2019-07-15 15:05] LABS: Urine Appearance CLEAR; Urine Bilirubin NEGATIVE (NEG); Urine Blood NEGATIVE (NEG); Urine Color YELLOW; Urine Glucose TRACE (NEG); Urine Protein 3+ (NEG); Urine Urobilinogen 0.2 mg/dL (0.2-1.0)
[2019-07-15 15:32] LABS: Urine Microscopic Reflex ORDER UMIC
[2019-07-15] MEDS ORDERED: DOXAZOSIN 2 MG TAB PO PRN (15:44)
[2019-07-15 15:46] LABS: Urine Bacteria <20 /HPF (NONE SEEN); Urine Culture Reflex Order NOT NEEDED; Urine Mucus 1+ /HPF (NONE SEEN); Urine RBC NONE SEEN /HPF (NONE SEEN)
--- NOTE | 2019-07-15 15:46 | P.HP ---
Certification for Inpatient Patient admitted to: Observation With expected LOS: <2 Midnights Patient will require the following post-hospital care: None Practitioner: I am a practitioner with admitting privileges, knowledge of patient current condition, hospital course, and medical plan of care. Services: Services provided to patient in accordance with Admission requirements found in Title 42 Section 412.3 of the Code of Federal Regulations Patient History Date of Service: 07/15/19 Primary Care Provider: Dr Love Reason for admission: Slurred Speech History of Present Illness: This is a 84-year-old male with significant past medical history of atrial fibrillation, end-stage renal disease, hypertension, diabetes who presented to the ED complaining of having severe weakness. Patient's dropped the patient off the head hemodialysis this morning. She noted that he was more altered along with having tremors and shakes in the upper extremity. Patient was dialyzed at the [facility] hemodialysis. After hemodialysis patient had severe weakness and was evaluated immediately and EMS was called. Patient needed 3 staff members to get him in his car. At the time of onset patient was alert and oriented x2. Patient had upper extremity tremors noted as well. Patient had a fall recently on Saturday and was evaluated in the ER at that time he was discharged home as no acute abnormality was found. Per the patient has been having gradual decline ever since then. states that he has been having some worsening of his expressive aphasia as well as started about 3 days ago.. Patient had similar episodes in the past and thus he was admitted to the hospital and had a stroke workup done which was negative for any acute abnormality. Patient sees Dr. Love as his primary care doctor outside. Denies having any fever chills nausea vomiting or any see symptoms. Allergies adhesive tape Adverse Reaction (Verified 05/27/19 00:33) Itching codeine Adverse Reaction (Verified 05/27/19 00:33) Itching morphine Adverse Reaction (Verified 05/27/19 00:33) Itching Home Medications: Acetaminophen/Diphenhydramine [Tylenol Pm Ex-Strength Caplet] 2 tab PO PRN PRN 07/15/19 Antiox.mv No.10/Omeg3s/Lut/Yolande [I-Caps with Lutein-[place] 3 Sfg] 1 tab PO DAILY 07/15/19 Cholecalciferol (Vitamin D3) [Vitamin D3] 1 tab PO EVERY 7TH DAY 07/15/19 Cyanocobalamin (Vitamin B-12) [Vitamin B12] 2,000 mg PO DAILY 07/15/19 Doxazosin [Cardura*] 1 tab PO PRN PRN 07/15/19 Febuxostat [Uloric] 1 tab PO DAILY 07/15/19 Folic Acid/Vit B Complex and C [Lucila-Tenzin Tablet] 1 tab PO DAILY 07/15/19 Loratadine [Claritin*] 1 tab PO DAILY 07/15/19 Lysine 1 tab PO DAILY 07/15/19 Metoprolol Succinate [Toprol Xl] 50 mg PO BID 07/15/19 Polyethylene Glycol 3350 [Miralax] 1 packet PO PRN PRN 07/15/19 Ranitidine [Zantac*] 1 tab PO DAILY 07/15/19 Sevelamer Carbonate [Renvela*] 2 tab PO TID 07/15/19 Triamcinolone 0.1% Crm [Kenalog 0.1% Cream*] 1 moncho TOP PRN 07/15/19 Warfarin Sodium [Coumadin] 4.5 mg PO DAILY 07/15/19 - Past Medical/Surgical History Has patient received pneumonia vaccine in the past: Yes Diabetic: No -: HTN -: Stage 4 kidney -: DVT filter -: Kidney Ca -: 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 -: DVT filter placed -: cataract sx -: hemhorroid sx -: bilateral knee sx - Family History Mother -: Heart disease, Hypertension, Cancer Notes: breast cancer [place] Father -: Heart disease, Hypertension Notes: CHF Sister -: Hypertension, Kidney disease Notes: breast removed d/t precancer - Social History Smoking Status: Never smoker Alcohol use: No CD- Drugs: No Caffeine use: No Place of Residence: Home Review of Systems 10-point ROS is otherwise unremarkable Physical Examination - Vital Signs Temperature: 98.1 F Blood Pressure: 201/87 Pulse: 80 Respirations: 18 Pulse Ox (%): 92 - Physical Exam General: Alert, In no apparent distress HEENT: Atraumatic, PERRLA, Mucous membr. moist/pink, EOMI, Sclerae nonicteric Neck: Supple, 2+ carotid pulse no bruit, No LAD, Without JVD or thyroid abnormality Respiratory: Clear to auscultation bilaterally, Normal air movement Cardiovascular: Regular rate/rhythm, Normal S1 S2 Gastrointestinal: Normal bowel sounds, No tenderness Musculoskeletal: No tenderness Integumentary: No rashes Neurological: Normal gait, Normal speech, Normal strength at 5/5 x4 extr, Normal tone, Normal affect Lymphatics: No axilla or inguinal lymphadenopathy - Studies Laboratory Data (last 24 hrs) 07/15/19 07:25: PT 21.7 H, INR 1.88 07/15/19 07:25: WBC 7.0, Hgb 11.3 L, Hct 34.0 L, Plt Count 141 L 07/15/19 07:25: Sodium 136, Potassium 5.1, BUN 78 H, Creatinine 8.75 H*, Glucose 100, Magnesium 2.4, Total Bilirubin 0.5, AST 16, ALT 14, Alkaline Phosphatase 66 Assessment and Plan - Problems (Diagnosis) (1) Expressive aphasia Current Visit: Yes Status: Acute Plan: Patient with expressive aphasia most due to hemodialysis. Now resolved -head CT negative for any acute abnormality -MRI not being able to done due to patient not able to lay flat -CTA head negative for any acute abnormality. CTA neck with mild plaquing noted -currently patient does take beta-west along with statin and aspirin will continue that here in the hospital (2) Generalized weakness Current Visit: Yes Status: Acute Plan: Generalized weakness most likely secondary to chronic declining of his overall status especially after hemodialysis -will consult PT OT here in the hospital. -will monitor patient closely -lab work to rule out any acute abnormality. (3) Fall Current Visit: Yes Status: Acute Plan: Patient with fall 2 days ago -fall precautions given -PTOT -patient may require placement depending on PT OT recommendation Qualifiers: Encounter type: initial encounter Qualified Code(s): W19.XXXA - Unspecified fall, initial encounter (4) ESRD (end stage renal disease) Current Visit: Yes Status: Chronic Plan: Will resume hemodialysis (5) HTN (hypertension) Current Visit: Yes Status: Chronic Plan: Restart home medication Qualifiers: Hypertension type: essential hypertension Qualified Code(s): I10 - Essential (primary) hypertension Discharge Plan: Home Plan to discharge in: 48 Hours - Advance Directives Does patient have a Living Will: Yes Does patient have a Durable POA for Healthcare: Yes - Code Status/Comfort Care Code Status Assessed: Yes Critical Care: No
[2019-07-15] MEDS: SEVELAMER CARBONATE 800 MG TABLET PO SCH (16:42)
[2019-07-15] MEDS ORDERED: WARFARIN SODIUM 2 MG TAB PO SCH (17:00)
[2019-07-15] MEDS ORDERED: WARFARIN SODIUM 2.5 MG TAB PO SCH (17:00)
[2019-07-15] MEDS ORDERED: LORazepam 2 MG/ML VIAL IV ONE (18:00)
[2019-07-15 18:34] LABS: Folic Acid, (Folate) > 20.0 ng/mL (3.1-17.5)
[2019-07-15] MEDS: ATORVASTATIN 40 MG TAB PO SCH (19:52)
[2019-07-15] MEDS: METOPROLOL XL 50 MG TAB PO SCH (19:52)
[2019-07-15] MEDS: levETIRAcetam 500 MG TAB PO SCH (19:53)
[2019-07-15] MEDS ORDERED: HYDRALAZINE HCL 20 MG/ML VIAL IV PRN (20:24)
--- NOTE | 2019-07-15 21:06 | CON ---
Reason For Consultation: Consultation called because of possible stroke. History Of Present Illness: Mr. Small is an 84-year-old patient with multiple medical problems inclu ding end-stage renal disease, on hemodialysis; atrial fibrillation; hypertension; diabetes mellitus, who apparently fell about 3 days ago and bumped his head slightly. He has been more confused since t hat fall, but at the fall, the patient reportedly had no loss of consciousness or injury. He was imm ediately seen after that with a head CT scan being done and the study showed no hemorrhagic findings or transformation or acute ischemic events. Following that, the patient was able to get dialysis on Saturday. However, earlier today, he was found to be very significantly weak diffusely. Potentially, there was a left side drooping of the face and he was unable to have dialysis done. He was sent in e mergency room for possible stroke evaluation. His head CT scan done earlier today showed no ischemic or hemorrhagic change. The study did show deep white matter ischemic changes secondary to small ves shira ischemic disease. CT angiogram of the head and neck revealed no significant stenosis. However, the CT angiogram of his neck showed a 14 x 8 mm partially calcified aneurysm extending off the anteri or aspect of the distal right common carotid. There is however no evidence of a dissection or a clot formation on CT angiogram in that region. The patient's family mentions that he has been having sig nificant jerking where he may drop objects or throw things and this occurs sometimes involving the en tire body. It also makes it difficult for him to sleep at night as the jerking intensifies as he tri es to relax at night. The patient's and 2 daughters are at the bedside and provided much of the information obtained, although the patient did follow instructions appropriately. Past Medical History: Stage 4 kidney disease, on hemodialysis. 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 Past Surgical History: DVT filter placed, cataract surgery, hemorrhoid, and bilateral knee surgery. Family History: Heart disease, hypertension, cancer, and breast cancer in mother and heart disease, hypertension, and congestive heart failure in father. Sister with hypertension, kidney disease, and pancreatic cancer. Social History: No alcohol, tobacco, or IV drug use. Patient is in home with family. Medications: Tylenol 2 as needed, omega-3 daily, vitamin D3 daily, B12 of 2000 mcg sublingual daily, folate and multivitamin daily, Claritin daily, Toprol-XL 50 mg twice daily, Mirapex daily, Zantac 1 tablet daily, Renvela 2 tablets twice daily, Kenalog 0.1% cream daily, Coumadin 4.5 mg daily. Review of Systems: Per the family, he has no recent fevers or chills. Has had jerking as indicated and some disorientat ion, confusion, and problem sleeping. Otherwise, he is on dialysis, does not make urine and no other positives on a 10-point systems review. Physical Examination: Vital Signs: Blood pressure very elevated up to 201/87, pulse 80, respiratory rate 18, temperature 9 8.1, oxygen saturation 92% on room air. Weight 272 pounds. Height 6 feet 2 inches, BMI 35. General: Mr. Small is sitting in bed, family attempting to feed him dinner. He does have evidence o f choking with ordinary food including pasta and fish, which he is unable to swallow because of the c hoking. He does better with thin liquids but small sips. HEENT: He is normocephalic. There is no evidence of bruise or bump on his head or his extremities. Sclerae appear anicteric. Oropharynx appear pink and moist. Neck: Supple. Chest: Clear. Heart: Regular. Extremities: Show no significant edema. 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 Neurological: He is alert and oriented to person. Follows all commands appropriately. In terms of cranial nerves, there is a subtle decrease on the left nasolabial fold, but he has good excursions wh en smiling. His tongue does move strongly to the left, but slight weakness noted moving his tongue t o the right. However, his tongue does appear midline when extruded. Facial sensation intact to ligh t touch and temperature bilaterally and the rest of his cranial nerves also intact. Motor examinatio n is symmetric in strength but diffusely weak around 4+ in the upper and lower extremities. Did have some pain when trying to pull to contract his biceps bilaterally. He also has some negative myoclon us noted when holding his arms up, he may have a jerky floppy movement. If he relaxes and stops movi ng, the movements subsides. His strength to the lower extremities symmetric. On sensory examination , he has significant stocking loss to light touch temperature and so glove loss to light touch and te mperature in upper extremities. Reflexes are trace to absent in both upper and lower extremities. A t this point, he was not ambulated. Laboratory Studies: White blood cell count 7.0, hemoglobin 11.3, platelets 141. His INR is 1.88. N ote, his INR was therapeutic at last several checks when he was recently in [facility]. Cur rent creatinine 8.75. Sodium, potassium, chloride, carbon dioxide, all normal. BUN up to 78. Liver function studies all normal. Beta natriuretic peptide 50,397. Urinalysis shows 5 to 10 epithelial cells, 3+ protein, but is otherwise negative. No cultures are pending. His electrocardiogram does s how sinus rhythm with first-degree AV block, possible left atrial enlargement noted, right bundle bra nch block and left anterior fascicular block on EKG. Assessment: Mr. Small is an 84-year-old patient with multifactorial reasons for his encephalopathy. It is possible that the blow to the head he received after falling 2 days ago may have left a mild p ostconcussive syndrome. He has no evidence of bleed on CT scan of the head and his neurological find ing of subtle left nasolabial fold decrease, but difficulty with an aspiration and possible tongue we akness thus point to a potential small stroke versus unmasking of a prior neurological deficit by his significant renal dysfunction and the recent blow to his head. He has no evidence of a systemic inf ection. He could not tolerate lying flat to receive the MRI. Will receive 2 mg of Ativan and re-att empt at getting the MRI done. In addition, his inability to rest because of the jerking might be rosa igated somewhat by giving a small amount of benzodiazepine prior to sleep, perhaps about 30 minutes t o an hour and may also add melatonin 3 mg at night to help medicate the jerking and for him to sleep. At this point, he should be kept n.p.o. and have a bedside swallow evaluation done by speech pathcolleen toro in the morning and then the consistency for oral intake might be determined. He is scheduled for dialysis in the morning, but should begin physical therapy immediately after along with again speech therapy. He was actually placed on Keppra for possibility of the shakes being related to seizures. He is currently taking 500 mg twice daily. EEG is not available until perhaps next week but we will continue with Keppra and he is not likely to have a urinary tract infection, but the urinalysis shou ld be followed further. He is slightly subtherapeutic on his INR at 1.88 and should target around 2. 5 to 3.5, so he may require an adjustment of the Coumadin dosage. CEE/LISA Voice ID: [id number] Report ID: [id number]
[2019-07-16 04:12] LABS: Protime INR 3.02
[2019-07-16 04:20] LABS: Absolute Lymphocytes (CBC) 1.1 K/uL (0.7-4.9); Basophils % 0.6 % (0-1.3); Hematocrit 30.7 % (39.6-49.0); Lymphocytes % 19.6 % (15.3-44.8); MPV 9.4 fL (7.6-11.3); RBC Red Blood Cell Count 3.25 M/uL (4.33-5.43)
[2019-07-16 04:37] LABS: Magnesium 2.5 mg/dL (1.8-2.4); Potassium 5.1 mmol/L (3.5-5.1)
[2019-07-16 04:54] LABS: Blood Morphology Comment NOT SEEN (NOT SEEN); Platelet Estimate DECR; Urine White Blood Cell Casts OK
[2019-07-16] MEDS ORDERED: MORPHINE 2 MG/ML SYR IV PRN (06:21)
[2019-07-16] MEDS ORDERED: HYDROMORPHONE HCL 1 MG/ML INJ IV PRN (06:50)
[2019-07-16] MEDS ORDERED: NALOXONE 0.4 MG/ML VIAL IV ONE (07:49)
[2019-07-16] MEDS ORDERED: NALOXONE 0.4 MG/ML VIAL ONE (07:53)
[2019-07-16] MEDS: levETIRAcetam 500 MG TAB PO SCH (07:57)
[2019-07-16] MEDS: MULTIVITAMINS,THERAPEUT 1 TAB PO SCH (07:57)
[2019-07-16] MEDS: FEBUXOSTAT PO SCH (07:57)
[2019-07-16] MEDS: LYSINE PO SCH (07:57)
[2019-07-16] MEDS: METOPROLOL XL 50 MG TAB PO SCH ×2 (07:58→20:30)
[2019-07-16] MEDS: CYANOCOBALAMIN 1,000 MCG TAB PO SCH (07:59)
[2019-07-16] MEDS: SEVELAMER CARBONATE 800 MG TABLET PO SCH ×3 (07:59→16:46)
[2019-07-16] MEDS: RANITIDINE 150 MG TABLET PO SCH (07:59)
[2019-07-16] MEDS ORDERED: ENOXAPARIN 30 MG/0.3 ML SQ SCH (09:00)
[2019-07-16] MEDS ORDERED: FOLIC ACID PO SCH (09:00)
[2019-07-16] MEDS ORDERED: ASPIRIN 81 MG CHEWABLE TABLET PO SCH (09:00)
[2019-07-16] MEDS ORDERED: WARFARIN SODIUM 4 MG TAB PO SCH (09:00)
[2019-07-16] MEDS ORDERED: CYANOCOBALAMIN PO SCH (09:00)
[2019-07-16] MEDS ORDERED: VIT B COMPLEX AND C PO SCH (09:00)
[2019-07-16 09:26] LABS: Arterial Blood Carboxyhemoglob 1.4 % (0-1.5); Blood Gas Oxyhemoglobin 94.8 % (94-97); Blood O2 Saturation 97.1 % (92-98.5)
--- NOTE | 2019-07-16 09:49 | P.CNS ---
Date of Consult: 07/16/19 patient seen/examined. still lethargic but opens eyes and responds to commands to open eyes. does seem to be uncomfortable with movements. edema is minimal. not able to provide much history. last dialysis was on saturday. he does seem to have uremic breath. heart sounds regular/i did not appreciate a rub. vs stable. bp on higher side with sbp in 150-170 range. cxray without congestion. lungs cta with decreased breath sounds / poor effort cvs regular abd soft/nt /nd ext chronic venous changes. family hx: non contributory pmhx: reviewed. hx of esrd meds/labs reviewed. a/p: esrd/respiratory distress earlier after pain med/responed to narcan. currently lethargic but responds to commands to open eyes. has not been dialyzed since saturday. not taking po intake well and does not seem to have much volume overload. plan to dialyze to day and tomorrow. spoke with Dr. Flores. Patient has been moved to closer to Nurse's station to keep an eye on him and monitor him more closely. Spoke with patient's , Nohelia, to update her of status and plan for dialysis today.
--- NOTE | 2019-07-16 14:10 | P.PN ---
Subjective Date of Service: 07/16/19 Primary Care Provider: Dr Love Chief Complaint: Slurred Speech Subjective: Other (increase sedation but alert) Physical Examination - Vital Signs Temperature: 98.8 F Blood Pressure: 174/78 Pulse: 72 Respirations: 18 Pulse Ox (%): 94 - Physical Exam General: Other (Patient with increased sedation. He was able to respond to voice. He knew where he was at.) HEENT: Atraumatic Neck: Supple Respiratory: Other (Poor inspiration and expiration) Cardiovascular: Normal pulses, Regular rate/rhythm Gastrointestinal: Normal bowel sounds, Soft and benign, Non-distended, No masses , No rebound, No guarding Integumentary: No erythema, No warmth, No cyanosis Neurological: Other (Increase sedation) Other Physical/Emotional Findings: Increase sedation - Studies Medications List Reviewed: Yes Assessment & Plan Discharge Plan: Home Plan to discharge in: Greater than 2 days Physician Review Additional Text: Impression: Expressive aphasia possible TIA now with dysphagia Metabolic encephalopathy likely related to uremia and end-stage renal disease on hemodialysis Recent fall Hypertension History of atrial fibrillation on chronic anti coagulation therapy Plan: Expressive aphasia possible TIA now with dysphagia: Notes reviewed. Case discussed with nephrology. Will keep the patient NPO until speech therapy and modified barium swallow could be done to further evaluate. Fall and aspiration precaution in place. Will monitor closely. If the patient is more alert will consider swallow screen. Nephrology plans for dialysis today and tomorrow. Will continue to monitor electrolytes. MRI has not been done due to increased agitation. If the patient is stable will need to order MRI without contrast of the brain to further evaluate. Continue IV Keppra as recommended by neurology. Metabolic encephalopathy likely related to uremia and end-stage renal disease on hemodialysis: Patient with increased sedation this morning. Patient was given Narcan after patient given IV pain medication. Will monitor closely. Fall on an aspiration precaution in place. Case discussed with nephrology. Encephalopathy likely related to uremia. Patient has not had dialysis since Saturday. Nephrology plans for dialysis today and tomorrow. Will continue monitor closely. Urine unremarkable. No evidence of pneumonia. Medication for sedation or pain IV has been discontinued. Recent fall: Once more alert will have physical therapy and occupational therapy evaluate. Hypertension: Continue medication. History of atrial fibrillation on chronic anti coagulation therapy: Continue medication. INR therapeutic. Time Spent Managing Pts Care (In Minutes): 55
[2019-07-16] MEDS: WARFARIN SODIUM 2 MG TAB PO SCH (16:46)
[2019-07-16] MEDS: WARFARIN SODIUM 2.5 MG TAB PO SCH (16:46)
[2019-07-16] MEDS ORDERED: WARFARIN SODIUM 5 MG TAB PO SCH ×2 (17:00)
--- NOTE | 2019-07-16 17:11 | RAD REPORT ---
EXAM DESCRIPTION: Sera Single View07/16/2019 4:25 pm CLINICAL HISTORY: Chest pain COMPARISON: July 15 FINDINGS: Old left rib fractures Lungs appear clear of acute infiltrate The heart is mildly enlarged IMPRESSION: No acute abnormality displayed
[2019-07-16] MEDS: ATORVASTATIN 40 MG TAB PO SCH (20:30)
[2019-07-16] MEDS: levETIRAcetam 500 MG in NA CHLORIDE 0.9% 100 ML IV SCH (21:18)
[2019-07-17 04:14] LABS: Absolute Lymphocytes (CBC) 0.9 K/uL (0.7-4.9); Basophils % 0.5 % (0-1.3); Hematocrit 32.7 % (39.6-49.0); Lymphocytes % 13.8 % (15.3-44.8); MPV 8.9 fL (7.6-11.3); RBC Red Blood Cell Count 3.47 M/uL (4.33-5.43)
[2019-07-17 04:40] LABS: Protime INR 4.09
[2019-07-17 04:44] LABS: Magnesium 2.4 mg/dL (1.8-2.4); Potassium 4.4 mmol/L (3.5-5.1)
[2019-07-17] MEDS: WARFARIN SODIUM 2 MG TAB PO SCH (07:40)
[2019-07-17] MEDS: WARFARIN SODIUM 2.5 MG TAB PO SCH (07:40)
[2019-07-17] MEDS: SEVELAMER CARBONATE 800 MG TABLET PO SCH ×3 (08:00→17:00)
[2019-07-17] MEDS: FEBUXOSTAT PO SCH (08:18)
[2019-07-17] MEDS: LYSINE PO SCH (08:19)
[2019-07-17] MEDS: MULTIVITAMINS,THERAPEUT 1 TAB PO SCH (08:19)
[2019-07-17] MEDS: RANITIDINE 150 MG TABLET PO SCH (08:20)
[2019-07-17] MEDS: THIAMINE 200 MG/2 ML INJ IVP SCH (08:20)
[2019-07-17] MEDS: CYANOCOBALAMIN 1,000 MCG TAB PO SCH (08:20)
[2019-07-17] MEDS: METOPROLOL XL 50 MG TAB PO SCH ×2 (08:20→20:13)
--- NOTE | 2019-07-17 10:29 | P.PN ---
Subjective Date of Service: 07/17/19 Primary Care Provider: Dr Love Chief Complaint: Slurred Speech please see dialysis flow sheets as well. patient seen/examined on dialysis. vs stable. patient alert and much better clinically compared to yesterday. tolerating dialysis well. uf goal 2L. labs reviewed. Physical Examination - Vital Signs Temperature: 98.7 F Blood Pressure: 160/68 Pulse: 77 Respirations: 22 Pulse Ox (%): 93 - Physical Exam Other Physical/Emotional Findings: Increase sedation - Studies Medications List Reviewed: Yes Assessment And Plan Physician Review Additional Text: Impression: Expressive aphasia possible TIA now with dysphagia Metabolic encephalopathy likely related to uremia and end-stage renal disease on hemodialysis Recent fall Hypertension History of atrial fibrillation on chronic anti coagulation therapy Plan: Expressive aphasia possible TIA now with dysphagia: Notes reviewed. Case discussed with nephrology. Will keep the patient NPO until speech therapy and modified barium swallow could be done to further evaluate. Fall and aspiration precaution in place. Will monitor closely. If the patient is more alert will consider swallow screen. Nephrology plans for dialysis today and tomorrow. Will continue to monitor electrolytes. MRI has not been done due to increased agitation. If the patient is stable will need to order MRI without contrast of the brain to further evaluate. Continue IV Keppra as recommended by neurology. Metabolic encephalopathy likely related to uremia and end-stage renal disease on hemodialysis: Patient with increased sedation this morning. Patient was given Narcan after patient given IV pain medication. Will monitor closely. Fall on an aspiration precaution in place. Case discussed with nephrology. Encephalopathy likely related to uremia. Patient has not had dialysis since Saturday. Nephrology plans for dialysis today and tomorrow. Will continue monitor closely. Urine unremarkable. No evidence of pneumonia. Medication for sedation or pain IV has been discontinued. Recent fall: Once more alert will have physical therapy and occupational therapy evaluate. Hypertension: Continue medication. History of atrial fibrillation on chronic anti coagulation therapy: Continue medication. INR therapeutic.
--- NOTE | 2019-07-17 11:00 | P.PN ---
Subjective Date of Service: 07/17/19 Primary Care Provider: Dr Love Chief Complaint: Slurred Speech Subjective: Improving, Doing well, Other (Patient has done significantly well. Patient more alert today.) Physical Examination - Vital Signs Temperature: 98.7 F Blood Pressure: 160/68 Pulse: 77 Respirations: 22 Pulse Ox (%): 93 - Physical Exam General: Alert, In no apparent distress, Oriented x3, Cooperative HEENT: Atraumatic Neck: Supple Respiratory: Clear to auscultation bilaterally, Normal air movement Cardiovascular: Normal pulses, Regular rate/rhythm Gastrointestinal: Normal bowel sounds, Soft and benign, Non-distended Musculoskeletal: No tenderness, No warmth Neurological: Normal speech, Normal strength at 5/5 x4 extr, Normal tone Other Physical/Emotional Findings: Increase sedation - Studies Medications List Reviewed: Yes Assessment & Plan Discharge Plan: Home Plan to discharge in: 24 Hours Physician Review Additional Text: Impression: Expressive aphasia possible TIA now with dysphagia Metabolic encephalopathy likely related to uremia and end-stage renal disease on hemodialysis Recent fall Hypertension History of atrial fibrillation on chronic anti coagulation therapy Plan: Expressive aphasia possible TIA now with dysphagia: Patient has done well with dialysis. Will obtain modified barium swallow to evaluate dysphagia. Will also try to get MRI of brain to further evaluate. Will have physical therapy and occupational therapy further evaluate. Patient significantly improved. Will transition to oral medication if modified barium swallow unremarkable. Possible discharge in the next 1-2 days with clinical improvement. I will turn the service over to the hospitalist team tomorrow. I will go over the plan of care with him. Metabolic encephalopathy likely related to uremia and end-stage renal disease on hemodialysis: Patient back to baseline. Patient has significantly improved. Likely related to uremia. Patient received dialysis yesterday. Patient received dialysis again today. Medication for sedation or pain IV has been discontinued. Recent fall: Will have physical therapy and occupational therapy assess patient. Fall precautions in place. Hypertension: Continue medication. History of atrial fibrillation on chronic anti coagulation therapy: Continue medication. Will hold Coumadin if INR above 3.0. Maintain INR between 2 and 3. Time Spent Managing Pts Care (In Minutes): 55
[2019-07-17] MEDS: levETIRAcetam 500 MG in NA CHLORIDE 0.9% 100 ML IV SCH ×2 (13:00→20:13)
--- NOTE | 2019-07-17 14:46 | RAD REPORT ---
EXAM DESCRIPTION: RAD - Barium Swallow Modified - 07/17/2019 2:21 pm CLINICAL HISTORY: dysphagia COMPARISON: None. TECHNIQUE: The patient was given liquid, semi-solid and solid forms of barium. Lateral view fluorosc opic imaging was performed in conjunction with speech pathology service. FINDINGS: Cineloop acquisitions: 11 Fluoro time: 2:12 MIN laryngeal penetration: not cleared with thin liquid large sip by cup. Aspiration: NO cough with thin liquid residue from pyriform after large sip of thin with barium table t. Pharyngeal residue: Mild to moderate vallecular, Mild to moderate pyriform, Mild posterior wall. Reduced pharyngeal constriction, reduced epiglottic inversion. IMPRESSION: Modified barium swallow as summarized above and fully detailed on speech pathology repor t.
--- NOTE | 2019-07-17 15:53 | RAD REPORT ---
EXAM DESCRIPTION: RAD - Hip Left 2 View - 07/17/2019 3:48 pm CLINICAL HISTORY: Left hip pain, fracture repair COMPARISON: July 13 FINDINGS: AP and frogleg views of the left hip were obtained. Fracture fixation hardware is in place . No change in alignment or position of the hardware. Proximal femur shows no new finding. Heterotopi c bone along the medial margin of the fracture fragment again noted. No acute or destructive bony pro cess seen. No new soft tissue finding. 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
[2019-07-17] MEDS: ATORVASTATIN 40 MG TAB PO SCH (20:13)
[2019-07-18 06:29] LABS: Protime INR 3.82
[2019-07-18 06:30] LABS: Absolute Lymphocytes (CBC) 1.1 K/uL (0.7-4.9); Basophils % 0.5 % (0-1.3); Hematocrit 33.3 % (39.6-49.0); Lymphocytes % 16.1 % (15.3-44.8); MPV 8.7 fL (7.6-11.3); RBC Red Blood Cell Count 3.55 M/uL (4.33-5.43)
[2019-07-18 06:38] LABS: Magnesium 2.4 mg/dL (1.8-2.4)
[2019-07-18] MEDS: FEBUXOSTAT PO SCH (09:00)
[2019-07-18] MEDS: LYSINE PO SCH (09:00)
[2019-07-18] MEDS: RANITIDINE 150 MG TABLET PO SCH (09:06)
[2019-07-18] MEDS: METOPROLOL XL 50 MG TAB PO SCH ×2 (09:06→21:24)
[2019-07-18] MEDS: THIAMINE 200 MG/2 ML INJ IVP SCH (09:07)
[2019-07-18] MEDS: CYANOCOBALAMIN 1,000 MCG TAB PO SCH (09:07)
[2019-07-18] MEDS: levETIRAcetam 500 MG in NA CHLORIDE 0.9% 100 ML IV SCH ×2 (09:08→21:00)
[2019-07-18] MEDS: MULTIVITAMINS,THERAPEUT 1 TAB PO SCH (09:11)
--- NOTE | 2019-07-18 12:03 | P.PN ---
Subjective Date of Service: 07/18/19 (Hospitalist) Primary Care Provider: Dr Love Chief Complaint: Pain in the right hip Subjective: Improving (No new complaints denies any new episode of weakness) Review of Systems Musculoskeletal: As per HPI Physical Examination - Vital Signs Temperature: 97.5 F Blood Pressure: 145/64 Pulse: 74 Respirations: 18 Pulse Ox (%): 100 - Physical Exam General: Alert, In no apparent distress, Oriented x3 Respiratory: Clear to auscultation bilaterally Cardiovascular: Regular rate/rhythm, Edema Gastrointestinal: Normal bowel sounds, Soft and benign Other Physical/Emotional Findings: Increase sedation - Studies Medications List Reviewed: Yes Assessment & Plan - Problems (Diagnosis) (1) Fall Current Visit: Yes Status: Acute Plan: Patient is 84 years of age with end-stage renal disease admitted with a fall denies any neurological deficits no evidence of a stroke his back to his baseline complaining of pain in the right hip no evidence of clinical sepsis vital signs stable will check room air pulse ox admitted with altered mental status start physical therapy Qualifiers: Encounter type: initial encounter Qualified Code(s): W19.XXXA - Unspecified fall, initial encounter
[2019-07-18] MEDS: WARFARIN SODIUM 2 MG TAB PO SCH (16:08)
[2019-07-18] MEDS: WARFARIN SODIUM 2.5 MG TAB PO SCH (16:08)
[2019-07-18] MEDS: ATORVASTATIN 40 MG TAB PO SCH (21:24)
[2019-07-18] MEDS: levETIRAcetam 500 MG TAB PO SCH (21:24)
[2019-07-19 05:53] VITALS: BMI 32.6
[2019-07-19] MEDS: LYSINE PO SCH (08:21)
[2019-07-19] MEDS: FEBUXOSTAT PO SCH (08:21)
[2019-07-19] MEDS: RANITIDINE 150 MG TABLET PO SCH (08:29)
[2019-07-19] MEDS: METOPROLOL XL 50 MG TAB PO SCH ×2 (08:30→22:00)
[2019-07-19] MEDS: CYANOCOBALAMIN 1,000 MCG TAB PO SCH (08:30)
[2019-07-19] MEDS: THIAMINE 200 MG/2 ML INJ IVP SCH (08:30)
[2019-07-19] MEDS: levETIRAcetam 500 MG TAB PO SCH ×2 (08:30→22:00)
[2019-07-19] MEDS: MULTIVITAMINS,THERAPEUT 1 TAB PO SCH (08:30)
--- NOTE | 2019-07-19 10:22 | P.PN ---
Subjective Date of Service: 07/19/19 Primary Care Provider: Dr Love Chief Complaint: Pain in the right hip Subjective: Improving (Patient is doing well no change in the pain in his right hip) Review of Systems Unremarkable Physical Examination - Vital Signs Temperature: 97.7 F Blood Pressure: 140/63 Pulse: 66 Respirations: 16 Pulse Ox (%): 97 - Physical Exam General: Alert, In no apparent distress, Oriented x3 Respiratory: Clear to auscultation bilaterally Cardiovascular: No edema, Normal pulses, Edema Other Physical/Emotional Findings: Increase sedation - Studies Medications List Reviewed: Yes Assessment & Plan - Problems (Diagnosis) (1) Fall Current Visit: Yes Status: Acute Plan: Patient is doing well he is complaining of pain in his right hip hypoxic his room-air sat was low will recheck again chronic renal failure on dialysis no evidence of sepsis labs reviewed chest x-ray was clear or rib fractures evaluation for rehab pending MRI of the brain is also pending Qualifiers: Encounter type: initial encounter Qualified Code(s): W19.XXXA - Unspecified fall, initial encounter Physician Review Additional Text: Impression: Expressive aphasia possible TIA now with dysphagia Metabolic encephalopathy likely related to uremia and end-stage renal disease on hemodialysis Recent fall Hypertension History of atrial fibrillation on chronic anti coagulation therapy Plan: Expressive aphasia possible TIA now with dysphagia: Patient has done well with dialysis. Will obtain modified barium swallow to evaluate dysphagia. Will also try to get MRI of brain to further evaluate. Will have physical therapy and occupational therapy further evaluate. Patient significantly improved. Will transition to oral medication if modified barium swallow unremarkable. Possible discharge in the next 1-2 days with clinical improvement. I will turn the service over to the hospitalist team tomorrow. I will go over the plan of care with him. Metabolic encephalopathy likely related to uremia and end-stage renal disease on hemodialysis: Patient back to baseline. Patient has significantly improved. Likely related to uremia. Patient received dialysis yesterday. Patient received dialysis again today. Medication for sedation or pain IV has been discontinued. Recent fall: Will have physical therapy and occupational therapy assess patient. Fall precautions in place. Hypertension: Continue medication. History of atrial fibrillation on chronic anti coagulation therapy: Continue medication. Will hold Coumadin if INR above 3.0. Maintain INR between 2 and 3.
[2019-07-19] MEDS: WARFARIN SODIUM 2.5 MG TAB PO SCH (16:30)
[2019-07-19] MEDS: WARFARIN SODIUM 2 MG TAB PO SCH (16:30)
[2019-07-19] MEDS: ATORVASTATIN 40 MG TAB PO SCH (22:00)
[2019-07-20 05:07] LABS: Protime INR 2.27
[2019-07-20] MEDS: MULTIVITAMINS,THERAPEUT 1 TAB PO SCH (08:08)
[2019-07-20] MEDS: CYANOCOBALAMIN 1,000 MCG TAB PO SCH (08:08)
[2019-07-20] MEDS: RANITIDINE 150 MG TABLET PO SCH (08:08)
[2019-07-20] MEDS: levETIRAcetam 500 MG TAB PO SCH ×2 (08:09→22:07)
[2019-07-20] MEDS: METOPROLOL XL 50 MG TAB PO SCH ×2 (08:09→22:06)
[2019-07-20] MEDS: FEBUXOSTAT PO SCH (08:10)
[2019-07-20] MEDS: LYSINE PO SCH (08:10)
[2019-07-20] MEDS ORDERED: DRISDOL (VITAMIN D=ERGOCALCIFEROL) 50000 UNIT CAP PO SCH (09:00)
[2019-07-20] MEDS ORDERED: NA CHLORIDE 0.9% 1,000 ML IV PRN (10:17)
[2019-07-20] MEDS: ALBUMIN HUMAN 25% 50 ML IV SCH ×2 (10:28→11:15)
[2019-07-20] MEDS: THIAMINE 200 MG/2 ML INJ IVP SCH (13:09)
[2019-07-20] MEDS: WARFARIN SODIUM 2 MG TAB PO SCH (16:06)
[2019-07-20] MEDS: WARFARIN SODIUM 2.5 MG TAB PO SCH (16:06)
--- NOTE | 2019-07-20 19:52 | P.PN ---
Date of Service: 07/20/19 Vital Signs Temp Pulse Resp BP Pulse Ox 98.0 F 69 16 144/65 H 98 07/20/19 16:00 07/20/19 16:00 07/20/19 16:00 07/20/19 16:00 07/20/19 16:00 Medications Albuterol Sulfate (Proventil 0.083% Neb Soln) 2.5 mg NEB [id number] [facility] Stop: 08/19/19 20:01 Atorvastatin Calcium (Lipitor) 40 mg PO BEDTIME [facility] Stop: 08/14/19 21:01 Last Admin: 07/19/19 22:00 Dose: 40 mg Cyanocobalamin (Vitamin B-12) 2,000 mcg PO DAILY [facility] Stop: 08/15/19 09:01 Last Admin: 07/20/19 08:08 Dose: 2,000 mcg Doxazosin Mesylate (Cardura) 2 mg PO PRN PRN PRN Reason: Titrate to SBP (MUST DEFINE) Stop: 08/14/19 15:45 Ergocalciferol (Drisdol) 50,000 unit PO Q7D@0900 [facility] Stop: 08/19/19 09:01 Last Admin: 07/20/19 09:00 Dose: 50,000 unit Home Med (Febuxostat [Uloric]) 1 tab PO DAILY [facility] Stop: 08/15/19 09:01 Last Admin: 07/20/19 08:10 Dose: Not Given Home Med (Lysine [Lysine]) 1 tab PO DAILY [facility] Stop: 08/15/19 09:01 Last Admin: 07/20/19 08:10 Dose: Not Given Hydralazine HCl (Apresoline) 10 mg IV Q6HP PRN PRN Reason: Titrate to SBP (MUST DEFINE) Stop: 08/14/19 20:25 Albumin Human (Albumin 25%) 50 mls @ 100 mls/hr IV EVERY HD [facility] Stop: 08/19/19 11:01 Last Admin: 07/20/19 11:15 Dose: 50 mls Sodium Chloride (Ns 1000 Ml Ivbag) 1,000 mls @ 0 mls/hr IV .Q0M PRN PRN Reason: Priming and BP support at HD Stop: 07/20/19 23:59 Ipratropium [place] (Atrovent Neb) 0.5 mg NEB [id number] [facility] Stop: 08/19/19 20:01 Levetiracetam (Keppra Tab) 500 mg PO BID [facility] Stop: 08/17/19 21:01 Last Admin: 07/20/19 08:09 Dose: 500 mg Metoprolol Succinate (Toprol Xl) 50 mg PO BID [facility] Stop: 08/14/19 21:01 Last Admin: 07/20/19 08:09 Dose: 50 mg Ranitidine HCl (Zantac) 150 mg PO DAILY [facility] Stop: 08/15/19 09:01 Last Admin: 07/20/19 08:08 Dose: 150 mg Sevelamer Carbonate (Renvela) 1,600 mg PO TIDWM [facility] Stop: 08/14/19 17:01 Last Admin: 07/17/19 17:00 Dose: Not Given Sodium Chloride (Normal Saline Flush) 10 ml IV BID [facility] Stop: 08/14/19 21:01 Last Admin: 07/20/19 08:10 Dose: 10 ml Thiamine HCl (Vitamin B-1) 100 mg IVP DAILY [facility] Stop: 08/16/19 09:01 Last Admin: 07/20/19 13:09 Dose: 100 mg Vitamin B Complex/Vit C/Folic Acid (Nephro-Tenzin) 1 tab PO DAILY [facility] Stop: 08/15/19 09:01 Last Admin: 07/20/19 08:08 Dose: 1 tab Warfarin Sodium (Coumadin) 2.5 mg PO DAILY 5 PM [facility] Stop: 08/15/19 17:01 Last Admin: 07/20/19 16:06 Dose: 2.5 mg Warfarin Sodium (Coumadin) 2 mg PO DAILY 5 PM [facility] Stop: 08/15/19 17:01 Last Admin: 07/20/19 16:06 Dose: 2 mg Assessment/ Plan: Nephrology CPS stable without CP or SOB. No acute events overnight. Feeling better. Tolerated HD today without difficulty. Vitals, medications, blood work and imaging reviewed in the chart. NAD. MMM. Neck supple. CTA. RRR. Soft Abd. No C/C. LE Edema trace. No rash. AAO. Normal Speech. Obese. A/ ESRD on HD. Hyperkalemia. Diastolic CHF, chronic. HTN with CKD/ CHF. Anemia in CKD. PRASANNA/ Secondary HyperPTH. AMS with weakness of unclear etiology. P/ Continue current POC and Medications. AM labs. Daily weight. No NSAIDs. Encourage nutrition. PT as tolerated. Restart binders. Plan for EEG today.
[2019-07-20] MEDS: IPRATROPIUM BROM 0.5MG/2.5ML NEB SCH (20:00)
[2019-07-20] MEDS: ALBUTEROL 2.5 MG/3 ML NEB SOL NEB SCH (20:00)
[2019-07-20] MEDS: ATORVASTATIN 40 MG TAB PO SCH (22:06)
--- NOTE | 2019-07-21 01:00 | PN ---
Date of Progress Note: 07/20/2019 Patient states he feels somewhat better today, although he has a noticeable rattly cough, awaiting th e culture and sensitivity results. In the meantime, we will start him on updrafts with albuterol and Atrovent. Discussion was held with his and the patient in regard to disposition or trying get him upstairs in rehab where he was before. Failing this, he will require SNF. This patient is still extremely weak, could not do the MRI due to the positioning of his neck and waiting results of the E EG. HR/MODL Voice ID: [id number] Report ID: [id number]
[2019-07-21] MEDS: ALBUTEROL 2.5 MG/3 ML NEB SOL NEB SCH ×3 (02:00→14:15)
[2019-07-21] MEDS: IPRATROPIUM BROM 0.5MG/2.5ML NEB SCH ×3 (02:00→14:15)
[2019-07-21] MEDS: LYSINE PO SCH (08:46)
[2019-07-21] MEDS: FEBUXOSTAT PO SCH (08:46)
[2019-07-21] MEDS: levETIRAcetam 500 MG TAB PO SCH (08:47)
[2019-07-21] MEDS: RANITIDINE 150 MG TABLET PO SCH (08:47)
[2019-07-21] MEDS: METOPROLOL XL 50 MG TAB PO SCH (08:47)
[2019-07-21] MEDS: MULTIVITAMINS,THERAPEUT 1 TAB PO SCH (08:47)
[2019-07-21] MEDS: CYANOCOBALAMIN 1,000 MCG TAB PO SCH (08:47)
[2019-07-21] MEDS: THIAMINE 200 MG/2 ML INJ IVP SCH (08:48)
[2019-07-21] MEDS ORDERED: ACETAMINOPHEN 500 MG TAB PO PRN (13:56)
[2019-07-21 15:03] VITALS: O2SAT 92
[2019-07-21] MEDS: WARFARIN SODIUM 2.5 MG TAB PO SCH (16:56)
[2019-07-21] MEDS: WARFARIN SODIUM 2 MG TAB PO SCH (16:56)
[2019-07-21 17:14] VITALS: BP 138/71; TEMP 98.5
--- NOTE | 2019-07-21 20:19 | P.PN ---
Date of Service: 07/21/19 Vital Signs Temp Pulse Resp BP Pulse Ox 98.5 F 68 17 138/71 98 07/21/19 16:00 07/21/19 16:00 07/21/19 16:00 07/21/19 16:00 07/21/19 16:00 Assessment/ Plan: Nephrology CPS stable without CP or SOB. No acute events overnight. Feeling better. +Weakness Vitals, medications, blood work and imaging reviewed in the chart. NAD. MMM. Neck supple. CTA. RRR. Soft Abd. No C/C. LE Edema trace. No rash. AAO. Normal Speech. Obese. A/ ESRD on HD. Hyperkalemia. Diastolic CHF, chronic. HTN with CKD/ CHF. Anemia in CKD. PRASANNA/ Secondary HyperPTH. AMS with weakness of unclear etiology. TIA? P/ Continue current POC and Medications. AM labs. Daily weight. No NSAIDs. Encourage nutrition. PT as tolerated. Follow up EEG results.
[2019-07-22] MEDS ORDERED: HOME MED 1 EA UNK (Cholecalciferol (Vitamin D3) [Vitamin D3] 1 TAB) PO SCH (09:00)
--- NOTE | 2019-07-22 14:54 | EEG ---
CHART: [id number] TEST ID#: [id number] DATE OF STUDY: 07/20/2019 THE EEG WAS RECORDED PORTABLE IN THE PATIENTS ROOM ON A 17 CHANNEL MACHINE. ELECTRODES WERE APPLIED IN THE USUAL MANNER USING THE INTERNATIONAL 10-20 SYSTEM. THE WAKING BACKGROUND RHYTHM IN THIS RECORD CONSISTS OF FAIRLY WELL DEVELOPED AND FAIRLY WELL ORGANIZED WAVES OF 8.5 HZ., MAXIMAL IN THE POSTERIOR HEAD REGIONS WHICH ATTENUATE NORMALLY WITH EYE OPENING. LOW-VOLTAGE 15-18 ACTIVITY MIXED WITH INTERMITTENT MODERATE VOLTAGE 1.5-3 HZ ACTIVITY IS EXPRESSED IN THE FRONTAL REGIONS. THERE ARE NO FOCAL OR LATERALIZING FEATURES. NO EPILEPTIFORM ACTIVITY APPEARS. SLEEP OCCURRED NATURALLY. IN ADDITION NORMAL SLEEP PATTERNS ARE PRESENT. HYPERVENTILATION WAS NOT PERFORMED. PHOTIC STIMULATION PRODUCED POOR DRIVING BILATERALLY. IMPRESSION: THIS IS A MILDLY ABNORMAL ROUTINE AWAKE AND ASLEEP EEG DUE TO A MILDLY SLOW BACKGROUND AND FRONTAL INTERMITTENT SLOW (DELTA) ACTIVITY. THOSE FINDINGS ARE CONSISTENT WITH A MILD DIFFUSE BUT NON-SPECIFIC DISTURBANCE IN CEREBRAL FUNCTION.
== END 2019-07-21 17:44 | DRG 69 ==
LOC: ER 06:34 → ERHOLD 09:51 → INTOOBSV 09:51 → OBSVTOIN 09:51 → 4TH 11:40 → OBSVTOIN 07-16 14:16
PROVIDERS: ADMIT Family Medicine; ATTEND Family Medicine
DX: G45.9 Transient cerebral ischemic attack, unspecified (principal); G93.41 Metabolic encephalopathy; N18.6 End stage renal disease; I13.2 Hypertensive heart and chronic kidney disease with heart failure and with stage 5 chronic kidney disease, or end stage renal disease; I50.32 Chronic diastolic (congestive) heart failure; N25.81 Secondary hyperparathyroidism of renal origin; I48.20 Chronic atrial fibrillation, unspecified; R47.01 Aphasia; E11.22 Type 2 diabetes mellitus with diabetic chronic kidney disease; M25.551 Pain in right hip; E87.5 Hyperkalemia; D63.1 Anemia in chronic kidney disease; R06.03 Acute respiratory distress; R53.1 Weakness; Z99.2 Dependence on renal dialysis; Z79.4 Long term (current) use of insulin; Z79.01 Long term (current) use of anticoagulants; R29.6 Repeated falls; Z91.81 History of falling; R13.10 Dysphagia, unspecified
CPT/HCPCS: 36415; 70450; 70496; 70498; 71045; 72125; 74230; 80048; 80076; 81003; 81015; 82607; 82746; 82805; 82947; 83735; 83880; 84484; 85025; 85610; 85652; 87070; 87077; 87186; 87205; 90935; 92611; 93005; 94640; 95816; 96374; 97110; 97112; 97116; 97161; 97165; 97530; 99284; 99285; G0378; J1170; J1953; J2270; J2310; J2405; J3010; J3411; P9047; Q9967

== ENCOUNTER 2019-07-21 14:37 | Inpatient (IN) | payer OTHER ==
--- NOTE | 2019-07-21 15:49 | R.PREADM ---
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 ACUTE HOME OFFICE REPRESENTATIVE/DC BUILDING CLEANING SUPERVISOR Anais Rush REFERRING PHYSICIAN Lauri Flores REHAB FACILITY [facility] CLINICAL LIAISON Rain Adams PHYSICIAN REVIEWER Dr. Gamal Lafleur M.D. MR# [id number] NAME CHELA RUBALCAVA ADDRESS [address] [facility] [id number] DATE OF 1935 AGE 84 SSN# [id number] GENDER male MARITAL STATUS RACE white ADMIT FROM 02 - [facility] PRE-HOSPITAL LIVING SETTING 01 - Home (private home/apt. board/care, assisted living, half-way, transitional living) HOME TYPE AND DETAILS Type of home: single family house # of levels in the residence: 1 # of steps to enter the residence: 0 # of steps within the residence: 0 PRE-HOSPITAL LIVING WITH Family/Relatives FAMILY SUPPORT Yes PRIMARY FAMILY CONTACT NAME NICOLE RUBALCAVA PRIMARY FAMILY CONTACT PHONE PRIMARY FAMILY CONTACT ALT. PHONE PHONE PRIMARY FAMILY CONTACT ON ADM.? no IS PRIMARY FAMILY CONTACT AUTH. REP.? no 1ST EMERGENCY CONTACT NICOLE RUBALCAVA 1ST CONTACT PHONE 1ST CONTACT ALT. PHONE PHONE 1ST CONTACT ON ADM. no IS 1ST CONTACT AUTH. REP.? no PHONE 2ND CONTACT ON ADM.? no PATIENT EMPLOYMENT STATUS Retired (for age) PATIENT EMPLOYER No Employer PAYOR INFORMATION: 1ST PAYOR NAME MEDICARE 1ST PAYOR PHONE [phone] 1ST PAYOR INJURY/ILLNESS DUE TO ACCIDENT? No ANOTHER LIBERTARIAN RESPONSIBLE? No PRIMARY REHAB/ACUTE DIAGNOSIS: ESRD ONSET DATE 07/16/2019 REHAB IMPAIRMENT CATEGORY ([place]): 20 Miscellaneous (Misc) does NOT meet 60% rule PRIMARY DIAGNOSIS-RELATED SURGERIES: No surgeries related to the primary diagnosis were performed. 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 is a 84 yo Right-handed white male. On 07/16/2019 he was admitted to [facility] with diagnosis ESRD. His impairment category is Debility 16 - Debility (16). Pre-morbidly, Pt. was independent/mod-I in Locomotion, Safety Awareness, Balance, Social Cognition, T ransfers Control, Sphincter Control, Self-Care, Communication, and Endurance; and he had good Locomot ion, Safety Awareness, Balance, Social Cognition, Transfers Control, Sphincter Control, Communication , Self-Care, and Endurance. Currently, he has deficits of Locomotion, Safety Awareness, Social Cognition, Balance, Transfers Cont rol, Sphincter Control, Self-Care, Communication, and Endurance. Pt. is now referred to [facility] for acute in-patient rehabilitation in order to maximize patient's functional independence in activities of daily living, strength, ROM, and mobi lity. Patient has realistic goal of being discharged at assistance level 6-Gisselle to reside at Home with Fam connie/Relatives. Chela Rubalcava is an 84 year old male that lives with his in a [address] home. He was ambulatory using a RW an d able to perform ADLs and self care on his own. On 07/16/2019, patient had a severe weakness, increased tremors and shakes in the upper extremity and was admitted to [facility] and treated. He is now medically stable but in need of 24-hour nursing, doctor supervision and oversite while receiving acti ve and ongoing intensive (PT, reasonably expected to participate in 3hours of therapy a day/15 hours per week and receive care with an intensive interdisciplinary approach. 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) PAST SURGICAL HISTORY: DVT filter placed Cataract surgery Hemorrhoid surgery Bilateral Knee Surgery MEDICATION ALLERGIES: Codeine Morphine ENVIRONMENTAL ALLERGIES: None Known - Substance Allergies None Known - Other Allergies Adhesive Tape CODE STATUS: Full code WEIGHT/HEIGHT/BMI: WEIGHT 254 lbs HEIGHT 6' 4" BMI 30.9 DIET: - Diet Type Regular - Diet - Solid Texture Regular - Diet - Liquid Texture Regular - Tube Feed N/A REVIEW OF SYSTEMS: - Gen Alert and awake Lying in bed No apparent distress Oriented to: person, time, and place - Vital Signs Temperature: 98.1 F SBP/DBP: 133/63 Pulse: 64 Resp: 17 Vital signs stable, afebrile - CVS RRR VITAL SIGNS Temperature: 98.1 F SBP/DBP: 133/63 Pulse: 64 Resp: 17 Vital signs stable, afebrile MEDICATIONS/TREATMENT: Other- See attached MAR (Medication Administration Record). CURRENT SPHINCTER CONTROL: Pre-hospital bladder status: continent # of bladder accidents in the last 7 days prior to screenin Pre-hospital bowel status: continent # of bowel accidents in the last 7 days prior to screenin Last Bowel Movement Date: 07/21/2019 CURRENT LOCOMOTION STATUS: distance traveled in wheelchair 0 feet distance walked 0 feet DETAILED CURRENT FUNCTIONAL STATUS: - Bladder accident frequency: Ind - No accidents in the past 7 days - Bowel accident frequency: Ind - No accidents in the past 7 days - Walking score based on distance walked: 1(<=50ft) - Wheelchair score based on distance traveled: 0(N/A) QI SCORES: - Self-Care A. Eating 04-Supervision or touching assistance B. Oral hygiene 04-Supervision or touching assistance C. Toileting hygiene 03-Partial/moderate assistance E. Shower/bathe self 03-Partial/moderate assistance F. Upper body dressing 03-Partial/moderate assistance G. Lower body dressing 02-Substantial/maximal assistance H. Putting on/taking off footwear 02-Substantial/maximal assistance - Mobility A. Roll left and right 03-Partial/moderate assistance B. Sit to lying 02-Substantial/maximal assistance C. Lying to sitting on side of bed 02-Substantial/maximal assistance D. Sit to stand 03-Partial/moderate assistance E. Chair/dtr-km-[id number] transfer 03-Partial/moderate assistance F. Toilet transfer 03-Partial/moderate assistance G. Car transfer 88-Not attempted due to medical condition or safety concerns I. Walk 10 feet 02-Substantial/maximal assistance J. Walk 50 feet with two turns 88-Not attempted due to medical condition or safety concerns K. Walk 150 feet 88-Not attempted due to medical condition or safety concerns L. Walking 10 feet on uneven surfaces 88-Not attempted due to medical condition or safety concerns M. 1 step (curb) 88-Not attempted due to medical condition or safety concerns N. 4 steps 88-Not attempted due to medical condition or safety concerns O. 12 steps 88-Not attempted due to medical condition or safety concerns P. Picking up object 88-Not attempted due to medical condition or safety concerns R. Wheel 50 feet with two turns 88-Not attempted due to medical condition or safety concerns S. Wheel 150 feet 88-Not attempted due to medical condition or safety concerns - Bladder and Bowel Bladder continence 5-No urine output Bowel continence 0-Always continent - Endurance Poor - Balance Poor - Safety Awareness Fair CURRENT FUNC. DEFICITS: Self-Care, Mobility, Endurance, Balance, and Safety Awareness CURRENT / PREVIOUS ASSISTIVE DEVICES: 3-in-1 Commode BSC Dentures Glasses Hearing Aid(s) Home Ramp Rolling Walker Shower Chair Tub Bench Wheelchair CURRENT USE ASSISTIVE DEVICES: SCDs TEDs HISTORY OF FALLS. HAS THE PATIENT HAD TWO OR MORE FALLS IN THE PAST YEAR OR ANY FALL WITH INJURY IN T HE PAST YEAR?: Yes PRIOR SURGERY. DID THE PATIENT HAVE MAJOR SURGERY DURING THE 100 DAYS PRIOR TO ADMISSION?: No THERAPY NOTES FROM ACUTE CARE: Attached. SPECIAL NEEDS: - Safety Concerns Skin breakdown precautions needed due to skin breakdown risk PATIENT NEEDS ACTIVE AND ONGOING THERAPEUTIC INTERVENTION OF MULTIPLE THERAPY DISCIPLINES, INCLUDING: - Dietary and Nutrition Adequate Nutrition. Nutritional Education. Nutritional Supplements. PATIENT NEEDS CLOSE MEDICAL SUPERVISION BY A REHABILITATION PHYSICIAN FOR: Coordination of Treatment Team DVT Management Diabetes Management Medical and Co-Morbidity Management PATIENT REQUIRES 24X7 REHAB NURSING FOR MEDICAL AND FUNCTIONAL MGT. OF THE FOLLOWING DEFICITS: Disease Management Medication Management Patient/Family Education Providing Safe Environment PATIENT REQUIRES INTENSIVE, COORDINATED INTERDISCIPLINARY APPROACH TO REHAB: Arranging Home Equipment/Services Discharge Planning Family Intervention/Training Rn Otolaryngology/Case Management PATIENT REHAB POTENTIAL: Kenny RUBALCAVA is able and expected to receive 3 hours of individualized therapy daily on at least 5 of monica ry 7 days Kenny RUBALCAVA's prognosis for significant practical improvement within a reasonable period of time appears Good Expected level of measurable improvement will be of a practical value to Kenny RUBALCAVA's functional capaci ty or adaptations to impairments Has a viable Discharge Plan Medically appropriate; condition is sufficiently stable to participate in intensive rehab program DISCHARGE PLAN: - Estimated Length of Stay (days) 13. - Consensus on plan Discharge plan has been discussed with primary caregiver. Patient/Family is in agreement with the marleny n. Primary caregiver is in agreement with the plan. - Patient/Family Goals Return home with assistance. - Planned Living Setting Upon Discharge Home, to live with Family/Relatives. Transitional Living. RECOMMENDED CARE LEVEL: IRF RECOMMENDATION DETAILS: Recommended Admission to Comprehensive Rehabilitation Program to Increase Functional Otley SCREENER'S COMPLETENESS CONFIRMATION: - Screening Confirmation The patient data collection on this preadmission screening form is finished PHYSICIANS REVIEW AND ADMISSION DETERMINATION Admit - Based on my review of the Pre-Admission Screening results, in my medical judgment and experie nce, I concur with the findings and recommend admission to [facility], as this patient requires an IRF level of care. SIGNATURE PANEL: Clinical Liaison - [electronically] signed by Rain Adams on 07/21/2019 at 15:10 (TOWER LOADER OPERATOR) Physician Reviewer - [electronically] signed by Dr. Gamal Lafleur M.D. on 07/21/2019 at 15:48 (TOWER LOADER OPERATOR )
[2019-07-21] MEDS ORDERED: POLYETHYL GLY 3350 17 GM/DOSE PO PRN (18:43)
[2019-07-21] MEDS ORDERED: DOXAZOSIN 2 MG TAB PO PRN (18:58)
[2019-07-21] MEDS ORDERED: TYLENOL PM ES PO PRN (19:00)
[2019-07-21] MEDS ORDERED: TRIAMCINOLONE ACET 0.1% CREAM 80 GM TOP PRN (19:04)
[2019-07-21] MEDS: IPRATROPIUM BROM 0.5MG/2.5ML NEB SCH (20:00)
[2019-07-21] MEDS: ALBUTEROL 2.5 MG/3 ML NEB SOL NEB SCH (20:00)
[2019-07-21] MEDS: levETIRAcetam 500 MG TAB PO SCH (20:53)
[2019-07-21] MEDS: ATORVASTATIN 40 MG TAB PO SCH (20:54)
[2019-07-21] MEDS: METOPROLOL XL 50 MG TAB PO SCH (20:54)
[2019-07-22] MEDS: ALBUTEROL 2.5 MG/3 ML NEB SOL NEB SCH ×4 (02:00→20:00)
[2019-07-22] MEDS: IPRATROPIUM BROM 0.5MG/2.5ML NEB SCH ×4 (02:00→20:00)
[2019-07-22] MEDS ORDERED: DOXAZOSIN 2 MG TAB PO PRN (02:54)
[2019-07-22 06:11] LABS: Protime INR 1.73
[2019-07-22 06:23] LABS: Absolute Lymphocytes (CBC) 1.5 K/uL (0.7-4.9); Basophils % 0.4 % (0-1.3); Hematocrit 30.5 % (39.6-49.0); Lymphocytes % 14.5 % (15.3-44.8); MPV 8.1 fL (7.6-11.3); RBC Red Blood Cell Count 3.24 M/uL (4.33-5.43)
[2019-07-22 06:41] LABS: Magnesium 2.4 mg/dL (1.8-2.4); Potassium 4.1 mmol/L (3.5-5.1); Prealbumin 19.7 mg/dL (20-40)
[2019-07-22] MEDS ORDERED: HOME MED 1 EA UNK PO SCH ×3 (08:00)
[2019-07-22] MEDS ORDERED: LYSINE PO SCH (08:00)
[2019-07-22] MEDS: CYANOCOBALAMIN 1,000 MCG TAB PO SCH (08:31)
[2019-07-22] MEDS: RANITIDINE 150 MG TABLET PO SCH (08:31)
[2019-07-22] MEDS: levETIRAcetam 500 MG TAB PO SCH ×2 (08:31→21:24)
[2019-07-22] MEDS: LORATADINE 10 MG TAB PO SCH (08:31)
[2019-07-22] MEDS: METOPROLOL XL 50 MG TAB PO SCH ×2 (08:31→21:24)
[2019-07-22] MEDS: CA ACETATE 667 MG CAP PO SCH ×3 (08:31→17:24)
[2019-07-22] MEDS ORDERED: TRAMADOL HCL 50 MG TAB PO PRN (08:38)
[2019-07-22] MEDS: ACETAMINOPHEN 500 MG TAB PO PRN (10:35)
--- NOTE | 2019-07-22 11:23 | FAST ---
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 Gamal Lafleur M.D. ADMISSION DIAGNOSIS: - Debility 16 - Debility (16) ESRD. ROLL LEFT AND RIGHT: ROLL LEFT AND RIGHT - STEP 1: Does the patient complete the activity by him/herself with no assistance (physical, verbal/nonverbal cueing, setup/clean-up)? No. ROLL LEFT AND RIGHT - STEP 2: Does the patient need only setup/clean-up assistance from one helper? No. ROLL LEFT AND RIGHT - STEP 3: Does the patient need only verbal/nonverbal cueing or touching/steadying/contact guard assistance fro m one helper? No. ROLL LEFT AND RIGHT - STEP 4: Does the patient need physical assistance - for example lifting or trunk support from one helper - wi th the helper providing less than half of the effort? Yes. 1. [id number] ADMISSION PERFORMANCE: Partial/moderate assistance CODE: 03 SIT TO LYING: SIT TO LYING - STEP 1: Does the patient complete the activity by him/herself with no assistance (physical, verbal/nonverbal cueing, setup/clean-up)? No. SIT TO LYING - STEP 2: Does the patient need only setup/clean-up assistance from one helper? No. SIT TO LYING - STEP 3: Does the patient need only verbal/nonverbal cueing or touching/steadying/contact guard assistance fro m one helper? No. SIT TO LYING - STEP 4: Does the patient need physical assistance - for example lifting or trunk support from one helper - wi th the helper providing less than half of the effort? Yes. 1. [id number] ADMISSION PERFORMANCE: Partial/moderate assistance CODE: 03 LYING TO SITTING: LYING TO SITTING ON SIDE OF BED - STEP 1: Does the patient complete the activity by him/herself with no assistance (physical, verbal/nonverbal cueing, setup/clean-up)? No. LYING TO SITTING ON SIDE OF BED - STEP 2: Does the patient need only setup/clean-up assistance from one helper? No. LYING TO SITTING ON SIDE OF BED - STEP 3: Does the patient need only verbal/nonverbal cueing or touching/steadying/contact guard assistance fro m one helper? No. LYING TO SITTING ON SIDE OF BED - STEP 4: Does the patient need physical assistance - for example lifting or trunk support from one helper - wi th the helper providing less than half of the effort? Yes. 1. [id number] ADMISSION PERFORMANCE: Partial/moderate assistance CODE: 03 SIT TO STAND: SIT TO STAND - STEP 1: Does the patient complete the activity by him/herself with no assistance (physical, verbal/nonverbal cueing, setup/clean-up)? No. SIT TO STAND - STEP 2: Does the patient need only setup/clean-up assistance from one helper? No. SIT TO STAND - STEP 3: Does the patient need only verbal/nonverbal cueing or touching/steadying/contact guard assistance fro m one helper? No. SIT TO STAND - STEP 4: Does the patient need physical assistance - for example lifting or trunk support from one helper - wi th the helper providing less than half of the effort? No. SIT TO STAND - STEP 5: Does the patient need physical assistance - for example lifting or trunk support from one helper - wi th the helper providing more than half of the effort? Yes. 1. [id number] ADMISSION PERFORMANCE: Substantial/maximal assistance CODE: 02 TRANSFERS: BED, CHAIR: CHAIR/[id number] TRANSFER - STEP 1: Does the patient complete the activity by him/herself with no assistance (physical, verbal/nonverbal cueing, setup/clean-up)? No. CHAIR/[id number] TRANSFER - STEP 2: Does the patient need only setup/clean-up assistance from one helper? No. CHAIR/[id number] TRANSFER - STEP 3: Does the patient need only verbal/nonverbal cueing or touching/steadying/contact guard assistance fro m one helper? No. CHAIR/[id number] TRANSFER - STEP 4: Does the patient need physical assistance - for example lifting or trunk support from one helper - wi th the helper providing less than half of the effort? No. CHAIR/[id number] TRANSFER - STEP 5: Does the patient need physical assistance - for example lifting or trunk support from one helper - wi th the helper providing more than half of the effort? Yes. 1. [id number] ADMISSION PERFORMANCE: Substantial/maximal assistance CODE: 02 TRANSFER TOILET: TOILET TRANSFER - STEP 1: Does the patient complete the activity by him/herself with no assistance (physical, verbal/nonverbal cueing, setup/clean-up)? No. TOILET TRANSFER - STEP 2: Does the patient need only setup/clean-up assistance from one helper? No. TOILET TRANSFER - STEP 3: Does the patient need only verbal/nonverbal cueing or touching/steadying/contact guard assistance fro m one helper? No. TOILET TRANSFER - STEP 4: Does the patient need physical assistance - for example lifting or trunk support from one helper - wi th the helper providing less than half of the effort? No. TOILET TRANSFER - STEP 5: Does the patient need physical assistance - for example lifting or trunk support from one helper - wi th the helper providing more than half of the effort? Yes. 1. [id number] ADMISSION PERFORMANCE: Substantial/maximal assistance CODE: 02 TRANSFERS: CAR: Not attempted due to environmental limitations (e.g., lack of equipment, weather constraints) CODE: 10 WALK 10 FEET: Not attempted due to medical condition or safety concerns CODE: 88 1 STEP (CURB): Not attempted due to medical condition or safety concerns CODE: 88 PICKING UP OBJECT: Not attempted due to medical condition or safety concerns CODE: 88 DOES THE PATIENT USE A WHEELCHAIR/SCOOTER? Q1. DOES THE PATIENT USE A WHEELCHAIR/SCOOTER?: Yes CODE: 1 WHEEL 50 FEET WITH TWO TURNS: WHEEL 50 FEET WITH TWO TURNS - STEP 1: Does the patient complete the activity by him/herself with no assistance (physical, verbal/nonverbal cueing, setup/clean-up)? No. WHEEL 50 FEET WITH TWO TURNS - STEP 2: Does the patient need only setup/clean-up assistance from one helper? No. WHEEL 50 FEET WITH TWO TURNS - STEP 3: Does the patient need only verbal/nonverbal cueing or touching/steadying/contact guard assistance fro m one helper? Yes. 1. [id number] ADMISSION PERFORMANCE: Supervision or touching assistance CODE: 04 INDICATE THE TYPE OF WHEELCHAIR/SCOOTER USED: RR1. INDICATE THE TYPE OF WHEELCHAIR/SCOOTER USED.: Manual CODE: 1 WHEEL 150 FEET: WHEEL 150 FEET - STEP 1: Does the patient complete the activity by him/herself with no assistance (physical, verbal/nonverbal cueing, setup/clean-up)? No. WHEEL 150 FEET - STEP 2: Does the patient need only setup/clean-up assistance from one helper? No. WHEEL 150 FEET - STEP 3: Does the patient need only verbal/nonverbal cueing or touching/steadying/contact guard assistance fro m one helper? Yes. 1. [id number] ADMISSION PERFORMANCE: Supervision or touching assistance CODE: 04 INDICATE THE TYPE OF WHEELCHAIR/SCOOTER USED: SS1. INDICATE THE TYPE OF WHEELCHAIR/SCOOTER USED.: Manual CODE: 1 BLADDER AND BOWEL: CODE: EXPR CODE: EXPR SIGNATURE PANEL: The following modified sections: 1. [id number] Admission Performance, 1. [id number] Admission Performance, 1. [id number] Admission Performance, 1. [id number] Admission Performance, 1. [id number] Admission Performance, 1. [id number] Admission Performance, 1. [id number] Admission Performance, Q1. Does the patient use a wheel chair/scooter?, 1. [id number] Admission Performance, RR1. Indicate the type of wheelchair/scooter used., 1. [id number] Admission Performance, Code, SS1. Indicate the type of wheelchair/scooter used. were [jer ctronically] signed by Jose G Rosas PT on SatJul 22 2019 11:22:59 GMT-0600 ([place] ne)
[2019-07-22] MEDS ORDERED: MANNITOL 25% 12.5 GM/50 ML VIAL IV PRN (11:38)
[2019-07-22] MEDS ORDERED: NA CHLORIDE 0.9% 1,000 ML IV PRN (11:38)
[2019-07-22] MEDS ORDERED: ALBUMIN HUMAN 25% 50 ML IV SCH (12:00)
[2019-07-22] MEDS: HYDROCODONE/APAP 5/325 MG TAB PO PRN (12:40)
[2019-07-22] MEDS: WARFARIN SODIUM 2 MG TAB PO SCH (17:23)
[2019-07-22] MEDS: WARFARIN SODIUM 2.5 MG TAB PO SCH (17:23)
--- NOTE | 2019-07-22 20:05 | R.HP ---
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 board/care, assisted living, residential, transitional living) PRE-HOSPITAL LIVING WITH Family/Relatives ENCOUNTER PHYSICIAN: Dr. Gamal Lafleur M.D. 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 is a 84 yo Right-handed white male. On 07/16/2019 he was admitted to [facility] with diagnosis ESRD. His impairment category is Debility 16 - Debility (16). Pre-morbidly, Pt. was independent/mod-I in Locomotion, Safety Awareness, Balance, Social Cognition, T ransfers Control, Sphincter Control, Self-Care, Communication, and Endurance; and he had good Locomot ion, Safety Awareness, Balance, Social Cognition, Transfers Control, Sphincter Control, Communication , Self-Care, and Endurance. Currently, he has deficits of Locomotion, Safety Awareness, Social Cognition, Balance, Transfers Cont rol, Sphincter Control, Self-Care, Communication, and Endurance. Pt. is now referred to [facility] for acute in-patient rehabilitation in order to maximize patient's functional independence in activities of daily living, strength, ROM, and mobi lity. Patient has realistic goal of being discharged at assistance level 6-Gisselle to reside at Home with Fam connie/Relatives. Chela Rubalcava is an 84 year old male that lives with his in a 1 sheela home. He was ambulatory using a RW an d able to perform ADLs and self care on his own. On 07/16/2019, patient had a severe weakness, increased tremors and shakes in the upper extremity and was admitted to [facility] and treated. He is now medically stable but in need of 24-hour nursing, doctor supervision and oversite while receiving acti ve and ongoing intensive (PT, reasonably expected to participate in 3hours of therapy a day/15 hours per week and receive care with an intensive interdisciplinary approach. 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 SOCIAL HISTORY: - Home Living Family/Relatives REVIEW OF SYSTEMS: - Gen No Chills Fatigue No Fever - Eyes No Double Vision No itchiness - ENMT No Difficulty Swallowing - CVS Chest Discomfort No Chest Pain No Fatigue No Weight Gain - Resp No Cough Shortness of Breath - GI Continent No Abdominal Pain No Constipation No Diarrhea - Continent No Kidney Pain No Painful Urination No Urinary Urgency - MSK No Joint Pain Muscle Cramps Stiffness - Skin No Itching No Rash No Suspicious Lesions - Neuro Coordination Difficulty No Difficulty with Concentration No Memory Loss No Seizures Weakness - Psych No Anxiety No Depression No HIV Exposure No Persistent Infections No Seasonal Allergies - Endo No Cold/Heat Intolerance No Excessive Hunger No Excessive Thirst No Excessive Urination PHYSICAL EXAM - Gen Alert and awake Lying in bed No apparent distress Oriented to: person, time, and place - Skin No skin breakdown. Normacephalic - Eyes No abnormalities - ENMT No abnormalities - Neck No abnormalities - CVS RRR - Chest Mildly decreased breath sounds bilaterally. - Abd Soft - GI + bowel sounds Deferred - Little urine production. On hemodialysis three times weekly. - Ext Mild bilateral lower extremity edema. - MSK 4+/5 weakness in both lower extremities. - Neuro No focal deficits - Psych No abnormalities VITAL SIGNS Temperature: 98.1 F SBP/DBP: 133/63 Pulse: 64 Resp: 17 NURSING: - Shower allowing shower - Lab Results blood Sugar Check ACHS ACTIVITIES OOB only with supervision QI SCORES: - Self-Care A. Eating 04-Supervision or touching assistance B. Oral hygiene 04-Supervision or touching assistance C. Toileting hygiene 03-Partial/moderate assistance E. Shower/bathe self 03-Partial/moderate assistance F. Upper body dressing 03-Partial/moderate assistance G. Lower body dressing 02-Substantial/maximal assistance H. Putting on/taking off footwear 02-Substantial/maximal assistance - Mobility A. Roll left and right 03-Partial/moderate assistance B. Sit to lying 02-Substantial/maximal assistance C. Lying to sitting on side of bed 02-Substantial/maximal assistance D. Sit to stand 03-Partial/moderate assistance E. Chair/fbd-lf-mgycn transfer 03-Partial/moderate assistance F. Toilet transfer 03-Partial/moderate assistance G. Car transfer 88-Not attempted due to medical condition or safety concerns I. Walk 10 feet 02-Substantial/maximal assistance J. Walk 50 feet with two turns 88-Not attempted due to medical condition or safety concerns K. Walk 150 feet 88-Not attempted due to medical condition or safety concerns L. Walking 10 feet on uneven surfaces 88-Not attempted due to medical condition or safety concerns M. 1 step (curb) 88-Not attempted due to medical condition or safety concerns N. 4 steps 88-Not attempted due to medical condition or safety concerns O. 12 steps 88-Not attempted due to medical condition or safety concerns P. Picking up object 88-Not attempted due to medical condition or safety concerns R. Wheel 50 feet with two turns 88-Not attempted due to medical condition or safety concerns S. Wheel 150 feet 88-Not attempted due to medical condition or safety concerns - Bladder and Bowel Bladder continence 5-No urine output Bowel continence 0-Always continent - Endurance Poor - Balance Poor - Safety Awareness Fair CURRENT FUNC. DEFICITS: Self-Care, Mobility, Endurance, Balance, and Safety Awareness MEDICATIONS: - Other See attached MAR (Medication Administration Record) ASSESSMENT: Pt. is a 84 yo Right-handed white male.On 07/16/2019 he was admitted to [facility] with diagnosis ESRD.His impairment category is Debility 16 - Debility (16).Pre-morbidly, Pt. was independent/mod-I in Locomotion, Safety Awareness, Balance, Social Cognition, Transfers Control, Sph incter Control, Self-Care, Communication, and Endurance; and he had good Locomotion, Safety Awareness , Balance, Social Cognition, Transfers Control, Sphincter Control, Communication, Self-Care, and Endu junior.Currently, he has deficits of Locomotion, Safety Awareness, Social Cognition, Balance, Transfer s Control, Sphincter Control, Self-Care, Communication, and Endurance.Pt. is now referred to [facility] for acute in-patient rehabilitation in order to maximize patient's function al independence in activities of daily living, strength, ROM, and mobility.- Rehab Goal Patient has realistic goal of being discharged at assistance level 6-Gisselle to reside at Home with Fam connie/Relatives. Chela Rubalcava is an 84 year old male that lives with his in a 1 sheela home. He was ambulatory using a RW an d able to perform ADLs and self care on his own. On 07/16/2019, patient had a severe weakness, increased tremors and shakes in the upper extremity and was admitted to [facility] and treated. He is now medically stable but in need of 24-hour nursing, doctor supervision and oversite while receiving acti ve and ongoing intensive (PT, reasonably expected to participate in 3hours of therapy a day/15 hours per week and receive care with an intensive interdisciplinary approach.REHAB PLAN: - Physical Therapy Gait dysfunction - to improve, our physical therapists will perform initial evaluation of pt's status upon admission and devise an individualized program for Gait Training, and Wheel Chair mobility Inability to transfer - to improve, our physical therapists will perform initial evaluation of pt's s tatus upon admission and devise an individualized program for Bed mobility Need for home safety evaluation - to improve, our physical therapists will perform initial evaluation of pt's status upon admission and devise an individualized program for Home Evaluation Need in caregiver upon discharge - to improve, our physical therapists will perform initial evaluatio n of pt's status upon admission and devise an individualized program for Caregiver Training New precaution - to improve, our physical therapists will perform initial evaluation of pt's status u colin admission and devise an individualized program for Patient precaution education Edema - to improve, our physical therapists will perform initial evaluation of pt's status upon admi ssion and devise an individualized program for Elevation Training, and Lymphedema Therapy Poor balance - to improve, our physical therapists will perform initial evaluation of pt's status upo n admission and devise an individualized program for Balance Training Poor endurance - to improve, our physical therapists will perform initial evaluation of pt's status u colin admission and devise an individualized program for Endurance Training Weakness - to improve, our physical therapists will perform initial evaluation of pt's status upon ad mission and devise an individualized program for Aquatic Therapy, Neuromuscular Reeducation, and Stre ngthening Achieving independence - to improve, our physical therapists will perform initial evaluation of pt's status upon admission and devise an individualized program for Community Reintegration Activities - Occupational Therapy ADL deficits - to improve, our occupation therapists will perform initial evaluation of pt's status u colin admission and devise an individualized program for Bathing, Bed mobility, Community Reintegration , Cooking, Dressing, Eating, Fine Motor Skills, Grooming, Homemaking, Kitchen Mobility, Laundry, Pia ent Education, Safety Awareness, Splinting - Positioning, Transfers(Toilet, Tub, Shower), and Wheel C hair Management Cognitive deficits - to improve, our occupation therapists will perform initial evaluation of pt's st atus upon admission and devise an individualized program for Cognition - orientation Need for careers counsellor - to improve, our occupation therapists will perform initial evaluation of pt's s tatus upon admission and devise an individualized program for Caregiver Training Weakness - to improve, our occupation therapists will perform initial evaluation of pt's status upon admission and devise an individualized program for Aquatic Therapy, Balance, Endurance, UE ROM, and U E strengthening MEDICAL PLAN: - Diet Type Start Regular - Diet - Liquid Texture Start Regular - Tube Feed Start N/A - Lab Results blood Sugar Check ACHS - Other See attached MAR (Medication Administration Record) - Diet - Solid Texture Regular - Shower shower DISCHARGE PLAN: - Estimated Length of Stay (days) 13. - Consensus on plan Discharge plan has been discussed with primary caregiver. Patient/Family is in agreement with the marleny n. Primary caregiver is in agreement with the plan. - Patient/Family Goals Return home with assistance. - Planned Living Setting Upon Discharge Home, to live with Family/Relatives. Transitional Living. SIGNATURE PANEL: (FORENSIC COMPUTER EXAMINER)
--- NOTE | 2019-07-22 20:06 | PAPE ---
PATIENT: 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 Gamal Lafleur M.D. 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 PATIENT NEEDS CLOSE MEDICAL SUPERVISION BY A REHABILITATION PHYSICIAN FOR: Coordination of Treatment Team DVT Management Diabetes Management Medical and Co-Morbidity Management PATIENT REQUIRES 24X7 REHAB NURSING FOR MEDICAL AND FUNCTIONAL MGT. OF THE FOLLOWING DEFICITS: Disease Management Medication Management Patient/Family Education Providing Safe Environment PATIENT REQUIRES INTENSIVE, COORDINATED INTERDISCIPLINARY APPROACH TO REHAB: Arranging Home Equipment/Services Discharge Planning Family Intervention/Training Electronic Engineering Technician/Case Management LIST OF IDENTIFIED AND POTENTIAL PROBLEMS: Alteration in leisure activities Bladder, Incontinence Blood Pressure, Hypertension/hypotension Issues Bowel, Incontinence DVT, Actual or Potential Diabetes, Hyperglycemia/hypoglycemia Issues Infection, Actual or Potential Mobility Impaired Pain, Alteration in Comfort Self Care Deficit Skin Integrity, Actual or Potential Urinary Tract Infection (UTI), Actual or Potential RISK FOR COMPLICATIONS - Atrial Fibrillation CVA. Heart failure. Limb embolus. - Hypertension CVA. Hypotension. MT. TIA. INTERVENTIONS - Atrial Fibrillation Anticoagulation. Medications. VS. - Hypertension PATIENT COULD BE AT RISK FOR COMPLICATIONS FROM ADVERSE MEDICAL CONDITIONS DUE TO HIS/HER COMORBIDITI ES AND THE RIGORS OF THE INTENSIVE REHABILLITATION PROGRAM. METHODS OR INTERVENTIONS TO AVOID COMPLIC ATIONS INCLUDE: - Deep Vein Thrombosis (DVT) Prophylaxis therapy for prevention . Sequential Compression Device (SCD). TE D Hose. - Infection Clinical staff to assess and manage the signs and symptoms of infection including fever, redness, war mth, etc. - Urinary Tract Infection - Falls Patient will be evaluated for Fall Precautions and will be placed on Fall Precautions as indicated pe r protocol. - Skin Breakdown Nursing will assess skin daily using assessment tool and will place on Skin Breakdown Precautions as indicated per protocol. - Pain Clinical staff may employ non-medication methods such as massage, distraction, decrease stimulus, etc . as needed. Clinical staff will assess patient's pain level every shift per protocol to assess and e nsure pain management effectiveness. Medications will be given and the pain level re-assessed. PRELIMINARY PLAN OF CARE: - Physical Therapy Patient needs Physical Therapy for a daily minimum of 1.5 hours at least 5 out of 7 days, to improve: Mobility, Strengthening, Transfers, Stretching, ROM, Endurance, Ability to manage stairs, Gait, and Balance. - Speech Therapy Patient needs Speech Therapy for a daily minimum of 0.5 hours at least 5 out of 7 days, to improve: S wallowing, Cognition, Language Skills, and Compensatory Strategies. - Rehabilitation Nursing Patient requires 24x7 Rehabilitation Nursing for: Pain Issues, Identifying and preventing risk factor s, Monitoring and reporting current medical conditions, Assisting with ambulation and transfer, Janel ting with all ADL-s, Teaching patients about disease process and medications, Family teaching, Provid ing safe environment, Bowel and Bladder Issues, Skin Integrity, and Medication Management. Patient needs Electronic Engineering Technician and/or Case Management for: Discharge Planning, Arranging Home Equipmen t or Services, and Family Interventions. - Dietary and Nutrition Services Patient needs Dietary and Nutrition Services for: Adequate Nutrition, Nutritional Supplements, and Nu tritional Education. - Occupational Therapy Patient needs Occupational Therapy for a daily minimum of 1.5 hours at least 5 out of 7 days, to impr ove Activities of Daily Living, including: Eating, Grooming, Bathing, Dressing, Toileting, Toilet Tra nsfers, Community Reintegration, Higher functional activities, Adaptive Equipment, Splinting, Househo ld Tasks, and Other activities as determined. QI SCORES: - Self-Care A. Eating 04-Supervision or touching assistance B. Oral hygiene 04-Supervision or touching assistance C. Toileting hygiene 03-Partial/moderate assistance E. Shower/bathe self 03-Partial/moderate assistance F. Upper body dressing 03-Partial/moderate assistance G. Lower body dressing 02-Substantial/maximal assistance H. Putting on/taking off footwear 02-Substantial/maximal assistance - Mobility A. Roll left and right 03-Partial/moderate assistance B. Sit to lying 02-Substantial/maximal assistance C. Lying to sitting on side of bed 02-Substantial/maximal assistance D. Sit to stand 03-Partial/moderate assistance E. Chair/ezd-ct-rgyrn transfer 03-Partial/moderate assistance F. Toilet transfer 03-Partial/moderate assistance G. Car transfer 88-Not attempted due to medical condition or safety concerns I. Walk 10 feet 02-Substantial/maximal assistance J. Walk 50 feet with two turns 88-Not attempted due to medical condition or safety concerns K. Walk 150 feet 88-Not attempted due to medical condition or safety concerns L. Walking 10 feet on uneven surfaces 88-Not attempted due to medical condition or safety concerns M. 1 step (curb) 88-Not attempted due to medical condition or safety concerns N. 4 steps 88-Not attempted due to medical condition or safety concerns O. 12 steps 88-Not attempted due to medical condition or safety concerns P. Picking up object 88-Not attempted due to medical condition or safety concerns R. Wheel 50 feet with two turns 88-Not attempted due to medical condition or safety concerns S. Wheel 150 feet 88-Not attempted due to medical condition or safety concerns - Bladder and Bowel Bladder continence 5-No urine output Bowel continence 0-Always continent - Endurance Poor - Balance Poor - Safety Awareness Fair POTENTIAL FUNCTIONAL GOALS FOR PATIENT TO ACHIEVE BY DISCHARGE: - Safety Precaution Patient will remain free from falls or injury at time of discharge. - Bed Mobility Patient will perform bed mobility at 4-Levi level of assistance. - Transfers Patient will complete transfers from bed to chair at 4-Levi level of assistance. - Mobility Patient will ambulate 150 ft with 4-Levi level of assistance with RW. PATIENT REHAB POTENTIAL Kenny RUBALCAVA is able and expected to receive 3 hours of individualized therapy daily on at least 5 of monica ry 7 days Kenny RUBALCAVA's prognosis for significant practical improvement within a reasonable period of time appears Good Expected level of measurable improvement will be of a practical value to Kenny RUBALCAVA's functional capaci ty or adaptations to impairments Has a viable Discharge Plan Medically appropriate; condition is sufficiently stable to participate in intensive rehab program DISCHARGE PLAN: - Estimated Length of Stay (days) 13. - Consensus on plan Discharge plan has been discussed with primary caregiver. Patient/Family is in agreement with the marleny n. Primary caregiver is in agreement with the plan. - Patient/Family Goals Return home with assistance. - Planned Living Setting Upon Discharge Home, to live with Family/Relatives. Transitional Living. CONCLUSION ON REHABILITATION NECESSITY: I have evaluated patient's pre-admission functional status and, comparing it to the patient's post-ad mission functional status now, I conclude that the pre-admission assessment was accurate. Patient's c ondition on admission supports the medical necessity of admission to [facility]. It is safe to proceed with patient's therapy program. 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
[2019-07-22] MEDS: ATORVASTATIN 40 MG TAB PO SCH (21:24)
[2019-07-23] MEDS: ALBUTEROL 2.5 MG/3 ML NEB SOL NEB SCH ×4 (01:30→20:20)
[2019-07-23] MEDS: IPRATROPIUM BROM 0.5MG/2.5ML NEB SCH ×4 (01:30→20:20)
[2019-07-23 06:43] LABS: Absolute Lymphocytes (CBC) 1.2 K/uL (0.7-4.9); Basophils % 0.4 % (0-1.3); Hematocrit 32.2 % (39.6-49.0); Lymphocytes % 11.8 % (15.3-44.8); MPV 7.8 fL (7.6-11.3); RBC Red Blood Cell Count 3.41 M/uL (4.33-5.43)
[2019-07-23 06:48] LABS: Protime INR 1.88
[2019-07-23 07:11] LABS: Albumin 3.2 g/dL (3.4-5.0); Magnesium 2.4 mg/dL (1.8-2.4); Potassium 4.2 mmol/L (3.5-5.1); Prealbumin 19.5 mg/dL (20-40)
[2019-07-23] MEDS ORDERED: LIDOCAINE 4% PATCH TOP SCH (08:00)
[2019-07-23] MEDS: LIDOCAINE 4% PATCH TOP SCH (08:26)
[2019-07-23] MEDS: CA ACETATE 667 MG CAP PO SCH ×3 (08:26→16:55)
[2019-07-23] MEDS: levETIRAcetam 500 MG TAB PO SCH ×2 (08:27→20:18)
[2019-07-23] MEDS: LORATADINE 10 MG TAB PO SCH (08:27)
[2019-07-23] MEDS: METOPROLOL XL 50 MG TAB PO SCH ×2 (08:27→20:19)
[2019-07-23] MEDS: RANITIDINE 150 MG TABLET PO SCH (08:27)
[2019-07-23] MEDS: CYANOCOBALAMIN 1,000 MCG TAB PO SCH (08:27)
[2019-07-23] MEDS: HYDROCODONE/APAP 5/325 MG TAB PO PRN ×2 (08:28→12:24)
[2019-07-23] MEDS: [UNRECOGNIZED DRUG - OTHER] PO SCH (08:31)
[2019-07-23] MEDS: ULORIC 80 MG PO SCH (08:32)
[2019-07-23] MEDS: RENA VITE PO SCH (08:32)
--- NOTE | 2019-07-23 16:26 | FAST ---
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 Gamal Lafleur M.D. ADMISSION DIAGNOSIS: - Debility 16 - Debility (16) ESRD. ROLL LEFT AND RIGHT: ROLL LEFT AND RIGHT - STEP 1: Does the patient complete the activity by him/herself with no assistance (physical, verbal/nonverbal cueing, setup/clean-up)? No. ROLL LEFT AND RIGHT - STEP 2: Does the patient need only setup/clean-up assistance from one helper? No. ROLL LEFT AND RIGHT - STEP 3: Does the patient need only verbal/nonverbal cueing or touching/steadying/contact guard assistance fro m one helper? No. ROLL LEFT AND RIGHT - STEP 4: Does the patient need physical assistance - for example lifting or trunk support from one helper - wi th the helper providing less than half of the effort? Yes. 1. [id number] ADMISSION PERFORMANCE: Partial/moderate assistance CODE: 03 SIT TO LYING: SIT TO LYING - STEP 1: Does the patient complete the activity by him/herself with no assistance (physical, verbal/nonverbal cueing, setup/clean-up)? No. SIT TO LYING - STEP 2: Does the patient need only setup/clean-up assistance from one helper? No. SIT TO LYING - STEP 3: Does the patient need only verbal/nonverbal cueing or touching/steadying/contact guard assistance fro m one helper? No. SIT TO LYING - STEP 4: Does the patient need physical assistance - for example lifting or trunk support from one helper - wi th the helper providing less than half of the effort? No. SIT TO LYING - STEP 5: Does the patient need physical assistance - for example lifting or trunk support from one helper - wi th the helper providing more than half of the effort? Yes. 1. [id number] ADMISSION PERFORMANCE: Substantial/maximal assistance CODE: 02 LYING TO SITTING: LYING TO SITTING ON SIDE OF BED - STEP 1: Does the patient complete the activity by him/herself with no assistance (physical, verbal/nonverbal cueing, setup/clean-up)? No. LYING TO SITTING ON SIDE OF BED - STEP 2: Does the patient need only setup/clean-up assistance from one helper? No. LYING TO SITTING ON SIDE OF BED - STEP 3: Does the patient need only verbal/nonverbal cueing or touching/steadying/contact guard assistance fro m one helper? No. LYING TO SITTING ON SIDE OF BED - STEP 4: Does the patient need physical assistance - for example lifting or trunk support from one helper - wi th the helper providing less than half of the effort? No. LYING TO SITTING ON SIDE OF BED - STEP 5: Does the patient need physical assistance - for example lifting or trunk support from one helper - wi th the helper providing more than half of the effort? Yes. 1. [id number] ADMISSION PERFORMANCE: Substantial/maximal assistance CODE: 02 SIT TO STAND: SIT TO STAND - STEP 1: Does the patient complete the activity by him/herself with no assistance (physical, verbal/nonverbal cueing, setup/clean-up)? No. SIT TO STAND - STEP 2: Does the patient need only setup/clean-up assistance from one helper? No. SIT TO STAND - STEP 3: Does the patient need only verbal/nonverbal cueing or touching/steadying/contact guard assistance fro m one helper? No. SIT TO STAND - STEP 4: Does the patient need physical assistance - for example lifting or trunk support from one helper - wi th the helper providing less than half of the effort? No. SIT TO STAND - STEP 5: Does the patient need physical assistance - for example lifting or trunk support from one helper - wi th the helper providing more than half of the effort? Yes. 1. [id number] ADMISSION PERFORMANCE: Substantial/maximal assistance CODE: 02 TRANSFERS: BED, CHAIR: CHAIR/[id number] TRANSFER - STEP 1: Does the patient complete the activity by him/herself with no assistance (physical, verbal/nonverbal cueing, setup/clean-up)? No. CHAIR/[id number] TRANSFER - STEP 2: Does the patient need only setup/clean-up assistance from one helper? No. CHAIR/[id number] TRANSFER - STEP 3: Does the patient need only verbal/nonverbal cueing or touching/steadying/contact guard assistance fro m one helper? No. CHAIR/[id number] TRANSFER - STEP 4: Does the patient need physical assistance - for example lifting or trunk support from one helper - wi th the helper providing less than half of the effort? No. CHAIR/[id number] TRANSFER - STEP 5: Does the patient need physical assistance - for example lifting or trunk support from one helper - wi th the helper providing more than half of the effort? Yes. 1. [id number] ADMISSION PERFORMANCE: Substantial/maximal assistance CODE: 02 TRANSFER TOILET: TOILET TRANSFER - STEP 1: Does the patient complete the activity by him/herself with no assistance (physical, verbal/nonverbal cueing, setup/clean-up)? No. TOILET TRANSFER - STEP 2: Does the patient need only setup/clean-up assistance from one helper? No. TOILET TRANSFER - STEP 3: Does the patient need only verbal/nonverbal cueing or touching/steadying/contact guard assistance fro m one helper? No. TOILET TRANSFER - STEP 4: Does the patient need physical assistance - for example lifting or trunk support from one helper - wi th the helper providing less than half of the effort? No. TOILET TRANSFER - STEP 5: Does the patient need physical assistance - for example lifting or trunk support from one helper - wi th the helper providing more than half of the effort? Yes. 1. [id number] ADMISSION PERFORMANCE: Substantial/maximal assistance CODE: 02 TRANSFERS: CAR: Not attempted due to environmental limitations (e.g., lack of equipment, weather constraints) CODE: 10 WALK 10 FEET: Not attempted due to medical condition or safety concerns CODE: 88 1 STEP (CURB): Not attempted due to medical condition or safety concerns CODE: 88 PICKING UP OBJECT: Not attempted due to medical condition or safety concerns CODE: 88 DOES THE PATIENT USE A WHEELCHAIR/SCOOTER? Q1. DOES THE PATIENT USE A WHEELCHAIR/SCOOTER?: Yes CODE: 1 WHEEL 50 FEET WITH TWO TURNS: WHEEL 50 FEET WITH TWO TURNS - STEP 1: Does the patient complete the activity by him/herself with no assistance (physical, verbal/nonverbal cueing, setup/clean-up)? No. WHEEL 50 FEET WITH TWO TURNS - STEP 2: Does the patient need only setup/clean-up assistance from one helper? No. WHEEL 50 FEET WITH TWO TURNS - STEP 3: Does the patient need only verbal/nonverbal cueing or touching/steadying/contact guard assistance fro m one helper? Yes. 1. [id number] ADMISSION PERFORMANCE: Supervision or touching assistance CODE: 04 INDICATE THE TYPE OF WHEELCHAIR/SCOOTER USED: RR1. INDICATE THE TYPE OF WHEELCHAIR/SCOOTER USED.: Manual CODE: 1 WHEEL 150 FEET: WHEEL 150 FEET - STEP 1: Does the patient complete the activity by him/herself with no assistance (physical, verbal/nonverbal cueing, setup/clean-up)? No. WHEEL 150 FEET - STEP 2: Does the patient need only setup/clean-up assistance from one helper? No. WHEEL 150 FEET - STEP 3: Does the patient need only verbal/nonverbal cueing or touching/steadying/contact guard assistance fro m one helper? Yes. 1. [id number] ADMISSION PERFORMANCE: Supervision or touching assistance CODE: 04 INDICATE THE TYPE OF WHEELCHAIR/SCOOTER USED: SS1. INDICATE THE TYPE OF WHEELCHAIR/SCOOTER USED.: Manual CODE: 1 BLADDER AND BOWEL: CODE: EXPR CODE: EXPR SIGNATURE PANEL: The following modified sections: 1. [id number] Admission Performance, 1. [id number] Admission Performance, 1. [id number] Admission Performance, 1. [id number] Admission Performance, 1. [id number] Admission Performance, 1. [id number] Admission Performance, Q1. Does the patient use a wheelchair/scooter?, 1. [id number] Admissi on Performance, RR1. Indicate the type of wheelchair/scooter used., 1. [id number] Admission Performance, Code, SS1. Indicate the type of wheelchair/scooter used. were [electronically] signed by Jose G martinez PT on SatJul 23 2019 16:25:17 GMT-0600 (Central Standard Time)
[2019-07-23] MEDS: WARFARIN SODIUM 2 MG TAB PO SCH (16:55)
[2019-07-23] MEDS: WARFARIN SODIUM 2.5 MG TAB PO SCH (16:55)
--- NOTE | 2019-07-23 18:55 | R.PN ---
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 Pt denied any depression. He denies pain. He performed therapeutic exercises with minimum assistance. He required maximum alee tance tor functional transfers. VITAL SIGNS Temperature: 97.4 F SBP/DBP: 135/63 Pulse: 94 Resp: 16 MEDICATION ALLERGIES: Codeine Morphine ENVIRONMENTAL ALLERGIES: None Known - Substance Allergies None Known - Other Allergies Adhesive Tape NURSING: - Shower allowing shower - Lab Results blood Sugar Check ACHS ACTIVITIES OOB only with supervision THERAPIES: - Dietary and Nutrition Adequate Nutrition. Nutritional Education. Nutritional Supplements. PHYSICAL EXAM - Gen Alert and awake Lying in bed No apparent distress Oriented to: person, time, and place - Skin No skin breakdown. Normacephalic - Eyes No abnormalities - ENMT No abnormalities - Neck No abnormalities - CVS RRR - Chest Mildly decreased breath sounds bilaterally. - Abd Soft - GI + bowel sounds Deferred - Little urine production. On hemodialysis three times weekly. - Ext Mild bilateral lower extremity edema. - MSK 4+/5 weakness in both lower extremities. - Neuro No focal deficits - Psych No abnormalities ASSESSMENT: Pt. is a 84 yo Right-handed white male.On 07/16/2019 he was admitted to [facility] with diagnosis ESRD.His impairment category is Debility 16 - Debility (16).Pre-morbidly, Pt. was independent/mod-I in Locomotion, Safety Awareness, Balance, Social Cognition, Transfers Control, Sph incter Control, Self-Care, Communication, and Endurance; and he had good Locomotion, Safety Awareness , Balance, Social Cognition, Transfers Control, Sphincter Control, Communication, Self-Care, and Endu junior.Currently, he has deficits of Locomotion, Safety Awareness, Social Cognition, Balance, Transfer s Control, Sphincter Control, Self-Care, Communication, and Endurance.Pt. is now referred to [facility] for acute in-patient rehabilitation in order to maximize patient's function al independence in activities of daily living, strength, ROM, and mobility.- Rehab Goal Patient has realistic goal of being discharged at assistance level 6-Gisselle to reside at Home with Fam connie/Relatives. MDM/PLAN: - Physical Therapy Gait dysfunction - to improve, our physical therapists will perform initial evaluation of pt's statu s upon admission and devise an individualized program for Gait Training, and Wheel Chair mobility Inability to transfer - to improve, our physical therapists will perform initial evaluation of pt's status upon admission and devise an individualized program for Bed mobility Need for home safety evaluation - to improve, our physical therapists will perform initial evaluatio n of pt's status upon admission and devise an individualized program for Home Evaluation Need in caregiver upon discharge - to improve, our physical therapists will perform initial evaluati on of pt's status upon admission and devise an individualized program for Caregiver Training New precaution - to improve, our physical therapists will perform initial evaluation of pt's status upon admission and devise an individualized program for Patient precaution education Edema - to improve, our physical therapists will perform initial evaluation of pt's status upon admis yary and devise an individualized program for Elevation Training, and Lymphedema Therapy Poor balance - to improve, our physical therapists will perform initial evaluation of pt's status up on admission and devise an individualized program for Balance Training Poor endurance - to improve, our physical therapists will perform initial evaluation of pt's status upon admission and devise an individualized program for Endurance Training Weakness - to improve, our physical therapists will perform initial evaluation of pt's status upon a dmission and devise an individualized program for Aquatic Therapy, Neuromuscular Reeducation, and Str engthening Achieving independence - to improve, our physical therapists will perform initial evaluation of pt's status upon admission and devise an individualized program for Community Reintegration Activities - Occupational Therapy ADL deficits - to improve, our occupation therapists will perform initial evaluation of pt's status upon admission and devise an individualized program for Bathing, Bed mobility, Community Reintegratio n, Cooking, Dressing, Eating, Fine Motor Skills, Grooming, Homemaking, Kitchen Mobility, Laundry, Pat ient Education, Safety Awareness, Splinting - Positioning, Transfers(Toilet, Tub, Shower), and Wheel Chair Management Cognitive deficits - to improve, our occupation therapists will perform initial evaluation of pt's s tatus upon admission and devise an individualized program for Cognition - orientation Need for critical care registered nurse - to improve, our occupation therapists will perform initial evaluation of pt's status upon admission and devise an individualized program for Caregiver Training Weakness - to improve, our occupation therapists will perform initial evaluation of pt's status upon admission and devise an individualized program for Aquatic Therapy, Balance, Endurance, UE ROM, and UE strengthening - Other See attached MAR (Medication Administration Record) - Diet Type Continue Regular - Diet - Liquid Texture Continue Regular - Tube Feed Continue N/A - Lab Results blood Sugar Check ACHS - Diet - Solid Texture Continue Regular - Shower allowing shower FUNCTIONAL STATUS: UPDATED AT WEEKLY TEAM CONFERENCE - Bladder Same accident frequency: 7-Ind - No accidents in the past 7 days - Bowel Same accident frequency: 7-Ind - No accidents in the past 7 days - Walking Same score based on distance walked: 1(<=50ft) - Wheelchair Same score based on distance traveled: 0(N/A) FUNCTIONAL STATUS: - Self-Care A. Eating sup B. Grooming Gisselle C. Bathing maxA D. Dressing - Upper modA E. Dressing - Lower maxA F. Toileting maxA - Sphincter Control G. Bladder control Dep H. Bowel control Levi - Transfers Control I. Bed/Chair/Wheelchair maxA J. Toilet maxA K. Tub/Shower maxA - Locomotion L. Walk/Wheelchair (B) modA M. Stairs ADNO - Communication N. Comprehension (B) Gisselle O. Expression (B) Gisselle - Social Cognition P. Social Interaction Ind Q. Problem Solving Gisselle R. Memory Gisselle - Endurance Good - Balance Good - Safety Awareness Good QI SCORES: - Self-Care A. Eating 04-Supervision or touching assistance B. Oral hygiene 04-Supervision or touching assistance C. Toileting hygiene 03-Partial/moderate assistance E. Shower/bathe self 03-Partial/moderate assistance F. Upper body dressing 03-Partial/moderate assistance G. Lower body dressing 02-Substantial/maximal assistance H. Putting on/taking off footwear 02-Substantial/maximal assistance - Mobility A. Roll left and right 03-Partial/moderate assistance B. Sit to lying 02-Substantial/maximal assistance C. Lying to sitting on side of bed 02-Substantial/maximal assistance D. Sit to stand 03-Partial/moderate assistance E. Chair/heu-zr-buurs transfer 03-Partial/moderate assistance F. Toilet transfer 03-Partial/moderate assistance G. Car transfer 88-Not attempted due to medical condition or safety concerns I. Walk 10 feet 02-Substantial/maximal assistance J. Walk 50 feet with two turns 88-Not attempted due to medical condition or safety concerns K. Walk 150 feet 88-Not attempted due to medical condition or safety concerns L. Walking 10 feet on uneven surfaces 88-Not attempted due to medical condition or safety concerns M. 1 step (curb) 88-Not attempted due to medical condition or safety concerns N. 4 steps 88-Not attempted due to medical condition or safety concerns O. 12 steps 88-Not attempted due to medical condition or safety concerns P. Picking up object 88-Not attempted due to medical condition or safety concerns R. Wheel 50 feet with two turns 88-Not attempted due to medical condition or safety concerns S. Wheel 150 feet 88-Not attempted due to medical condition or safety concerns - Bladder and Bowel Bladder continence 5-No urine output Bowel continence 0-Always continent - Endurance Poor - Balance Poor - Safety Awareness Fair CURRENT FUNC. 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
[2019-07-23] MEDS: ATORVASTATIN 40 MG TAB PO SCH (20:18)
--- NOTE | 2019-07-23 22:25 | P.CNS ---
Date of Consult: 07/23/19 Reason for Consult: ESRD Requesting Physician: Gamal Lafleur Primary Care Provider: Dr. Love Chief Complaint: Weakness History of Present Illness: 84 yo WM CKD, HTN presented to the hospital with moderate, progressive, diffuse weakness of unclear etiology. Suspected underlying TIA. Feeling better today but reports persistent weakness. Working with PT. No associated sx. Allergies sevelamer [From Renvela] Allergy (Verified 07/21/19 23:19) Itching adhesive tape Adverse Reaction (Verified 07/21/19 23:19) Itching codeine Adverse Reaction (Verified 07/21/19 23:19) Itching morphine Adverse Reaction (Verified 07/21/19 23:19) Itching Home medications list reviewed: Yes Home Medications: Acetaminophen/Diphenhydramine [Tylenol Pm Ex-Strength Caplet] 2 tab PO BEDTIME PRN PRN 07/15/19 Antiox.mv No.10/Omeg3s/Lut/Yolande [I-Caps with Lutein-[place] 3 Sfg] 1 tab PO DAILY 07/15/19 Cholecalciferol (Vitamin D3) [Vitamin D3] 1 tab PO EVERY 7TH DAY 07/15/19 Cyanocobalamin (Vitamin B-12) [Vitamin B12] 2,000 mg PO DAILY 07/15/19 Doxazosin [Cardura*] 1 tab PO BIDP PRN 07/15/19 Febuxostat [Uloric] 1 tab PO DAILY 07/15/19 Folic Acid/Vit B Complex and C [Lucila-Tenzin Tablet] 1 tab PO DAILY 07/15/19 Loratadine [Claritin*] 1 tab PO DAILY 07/15/19 Lysine 1 tab PO DAILY 07/15/19 Polyethylene Glycol 3350 [Miralax] 1 packet PO PRN PRN 07/15/19 Ranitidine [Zantac*] 1 tab PO DAILY 07/15/19 Triamcinolone 0.1% Crm [Kenalog 0.1% Cream*] 1 moncho TOP BIDP PRN 07/15/19 Calcium Acetate 3 tab PO TIDWM 07/20/19 Albuterol Neb [Proventil 0.083% Neb Soln] 2.5 mg NEB [id number] amp 07/21/19 Atorvastatin Calcium [Lipitor] 40 mg PO BEDTIME tab 07/21/19 Ipratropium Neb [Atrovent*] 0.5 mg NEB [id number] amp 07/21/19 Metoprolol Succinate [Toprol Xl*] 50 mg PO BID tab 07/21/19 levETIRAcetam [Keppra*] 500 mg PO BID tab 07/21/19 Warfarin Sodium [Coumadin] 2 mg PO DAILY 5 PM 07/22/19 Warfarin Sodium [Coumadin] 2.5 mg PO DAILY 5 PM 07/22/19 - Past Medical/Surgical History Diabetic: No -: HTN -: Stage 4 kidney -: DVT filter -: Kidney Ca -: 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 -: CHF -: chronic anemia -: AFib -: ESRD -: DVT filter placed -: cataract sx -: hemorrhoidectomy -: bilateral knee sx -: left hip surgery -: partial nephrectomy - Family History Mother Medical History: Heart disease, Hypertension, Cancer Notes: breast cancer [place] Father Medical History: Heart disease, Hypertension Notes: CHF Sister Medical History: Hypertension, Kidney disease Notes: breast removed d/t precancer - Social History Alcohol use: No CD- Drugs: No Caffeine use: Yes Place of Residence: Home Review of Systems 10-point ROS is otherwise unremarkable General: Weakness Cardiovascular: Edema Musculoskeletal: Back Pain Neurological: Weakness Physical Examination Temp Pulse Resp BP Pulse Ox 97.4 F 74 16 138/60 94 07/23/19 07:14 07/23/19 20:19 07/23/19 13:24 07/23/19 20:19 07/23/19 13:24 General: In no apparent distress, Oriented x3, Cooperative HEENT: Atraumatic, Mucous membr. moist/pink Neck: Supple Respiratory: Clear to auscultation bilaterally, Normal air movement Cardiovascular: Regular rate/rhythm, No rubs, Edema Gastrointestinal: Soft and benign, Non-distended Musculoskeletal: No clubbing, No contractures Integumentary: No rashes, No significant lesion, No cyanosis Neurological: Normal speech Laboratory Data (last 24 hrs) 07/23/19 06:17: Sodium 137, Potassium 4.2, BUN 48 H D, Creatinine 7.32 H* D, Glucose 94, Magnesium 2.4 07/23/19 06:17: WBC 10.2, Hgb 11.0 L, Hct 32.2 L, Plt Count 229 07/23/19 06:17: PT 21.6 H, INR 1.88 Imagings Data: EXAM DESCRIPTION: Sera Single View07/16/2019 4:25 pm CLINICAL HISTORY: Chest pain COMPARISON: July 15 FINDINGS: Old left rib fractures Lungs appear clear of acute infiltrate The heart is mildly enlarged IMPRESSION: No acute abnormality displayed Conclusions/Impression: A/ ESRD on HD. Hyperkalemia. Diastolic CHF, chronic. HTN with CKD/ CHF. Anemia in CKD. PRASANNA/ Secondary HyperPTH. AMS with weakness of unclear etiology. TIA? P/ Continue current POC and Medications. Encourage nutrition. PT as tolerated. AM labs. Daily weight. No NSAIDs. Thank you kindly for the consultation.
[2019-07-23] MEDS: TRAMADOL HCL 50 MG TAB PO PRN (23:30)
[2019-07-24] MEDS: IPRATROPIUM BROM 0.5MG/2.5ML NEB SCH ×4 (01:30→20:00)
[2019-07-24] MEDS: ALBUTEROL 2.5 MG/3 ML NEB SOL NEB SCH ×4 (01:30→20:00)
[2019-07-24 06:33] LABS: Protime INR 2.08
[2019-07-24] MEDS: METOPROLOL XL 50 MG TAB PO SCH ×2 (08:00→20:00)
[2019-07-24] MEDS: LIDOCAINE 4% PATCH TOP SCH (08:54)
[2019-07-24] MEDS: PROMOD 30 ML DOSE PO SCH ×2 (08:56→20:46)
[2019-07-24] MEDS: TRAMADOL HCL 50 MG TAB PO PRN (08:57)
[2019-07-24] MEDS: CA ACETATE 667 MG CAP PO SCH ×3 (08:58→17:00)
[2019-07-24] MEDS: CYANOCOBALAMIN 1,000 MCG TAB PO SCH (08:58)
[2019-07-24] MEDS: RENA VITE PO SCH (08:59)
[2019-07-24] MEDS: levETIRAcetam 500 MG TAB PO SCH ×2 (08:59→20:38)
[2019-07-24] MEDS: LORATADINE 10 MG TAB PO SCH (08:59)
[2019-07-24] MEDS: RANITIDINE 150 MG TABLET PO SCH (08:59)
[2019-07-24] MEDS: [UNRECOGNIZED DRUG - OTHER] PO SCH (09:00)
[2019-07-24] MEDS: ULORIC 80 MG PO SCH (09:00)
--- NOTE | 2019-07-24 10:21 | P.RH.PN ---
Estimated Length of Stay: 15 Expected Discharge Date: 08/04/19 Discharge Disposition Plan: Home Family Support: Yes Vital Signs: Last Vital Signs Temp 97.0 F 07/24/19 07:35 Pulse 94 H 07/24/19 08:00 Resp 16 07/24/19 08:57 BP 105/56 L 07/24/19 08:00 Pulse Ox 95 07/24/19 08:57 Laboratory: Laboratory Last Values WBC 10.2 K/uL (4.3-10.9) 07/23/19 06:17 RBC 3.41 M/uL (4.33-5.43) L 07/23/19 06:17 Hgb 11.0 g/dL (13.6-17.9) L 07/23/19 06:17 Hct 32.2 % (39.6-49.0) L 07/23/19 06:17 MCV 94.3 fL (80-100) 07/23/19 06:17 MCH 32.2 pg (27.0-35.0) 07/23/19 06:17 MCHC 34.1 g/dL (32.0-36.0) 07/23/19 06:17 RDW 15.7 % (12.1-15.2) H 07/23/19 06:17 Plt Count 229 K/uL (152-406) 07/23/19 06:17 MPV 7.8 fL (7.6-11.3) 07/23/19 06:17 Neutrophils % 72.9 % (41.7-73.7) 07/23/19 06:17 Lymphocytes % 11.8 % (15.3-44.8) L 07/23/19 06:17 Monocytes % 10.2 % (3.3-12.3) 07/23/19 06:17 Eosinophils % 4.7 % (0-4.4) H 07/23/19 06:17 Basophils % 0.4 % (0-1.3) 07/23/19 06:17 Absolute Neutrophils 7.4 K/uL (1.8-8.0) 07/23/19 06:17 Absolute Lymphocytes 1.2 K/uL (0.7-4.9) 07/23/19 06:17 Absolute Monocytes 1.0 K/uL (0.1-1.3) 07/23/19 06:17 Absolute Eosinophils 0.5 K/uL (0-0.5) 07/23/19 06:17 Absolute Basophils 0.0 K/uL (0-0.5) 07/23/19 06:17 PT 23.9 SECONDS (9.5-12.5) H 07/24/19 05:59 INR 2.08 07/24/19 05:59 Sodium 137 mmol/L (136-145) 07/23/19 06:17 Potassium 4.2 mmol/L (3.5-5.1) 07/23/19 06:17 Chloride 103 mmol/L (98-107) 07/23/19 06:17 Carbon Dioxide 26 mmol/L (21-32) 07/23/19 06:17 BUN 48 mg/dL (7-18) H D 07/23/19 06:17 Creatinine 7.32 mg/dL (0.55-1.3) H* D 07/23/19 06:17 Estimated GFR 7 mL/min (=/>90) L 07/23/19 06:17 Glucose 94 mg/dL (74-106) 07/23/19 06:17 Calcium 9.6 mg/dL (8.5-10.1) 07/23/19 06:17 Magnesium 2.4 mg/dL (1.8-2.4) 07/23/19 06:17 Albumin 3.2 g/dL (3.4-5.0) L 07/23/19 06:17 Prealbumin 19.5 mg/dL (20-40) L 07/23/19 06:17 Weight: 246 lb 7 oz Wound Present: No Closed Surgical Incision Present: No Negative Pressure Wound Therapy Present: No Physician Update: He has significant left hip pain and has a pain patch and norco 5/325. Will increase norco to 10/325 q 4 hours. His progress with physical and occupation therapy is somewhat limited by pain. Medical Issues: Patient has no urine output , dialysis patient and always continent with bowel. Functional Improvement: pt demonstrates a willingness to participate; however, he is quite limited by the pain in his L LE. pt continues to require skilled PT services to enhance functional performance. Summary: Patient's care plan and retirement goals have been reviewed and revised as necessary. Please see the Rehabilitation Signature page for all necessary signatures.
[2019-07-24] MEDS: HYDROCODONE/APAP 10/325 TAB PO PRN (13:31)
[2019-07-24] MEDS: WARFARIN SODIUM 2.5 MG TAB PO SCH (17:00)
[2019-07-24] MEDS: WARFARIN SODIUM 2 MG TAB PO SCH (17:00)
[2019-07-24] MEDS: ATORVASTATIN 40 MG TAB PO SCH (20:38)
--- NOTE | 2019-07-24 21:40 | P.PN ---
Date of Service: 07/24/19 Vital Signs Temp Pulse Resp BP Pulse Ox 97.8 F 70 16 119/53 L 97 07/24/19 20:00 07/24/19 20:00 07/24/19 20:00 07/24/19 20:00 07/24/19 20:00 Medications Acetaminophen (Tylenol -Extra Strength) 500 mg PO Q4H PRN PRN Reason: Pain scale 2-4 (Mild) Stop: 08/21/19 10:31 Last Admin: 07/22/19 10:35 Dose: 500 mg Hydrocodone Bitart/Acetaminophen ([place] 10/325) 1 tab PO Q4H PRN PRN Reason: Pain scale 8-10 (Severe) Stop: 08/23/19 13:11 Last Admin: 07/24/19 13:31 Dose: 1 tab Albuterol Sulfate (Proventil 0.083% Neb Soln) 2.5 mg NEB [id number] [facility] Stop: 08/20/19 20:01 Last Admin: 07/24/19 20:00 Dose: 2.5 mg Atorvastatin Calcium (Lipitor) 40 mg PO BEDTIME [facility] Stop: 08/20/19 21:01 Last Admin: 07/24/19 20:38 Dose: 40 mg Calcium Acetate (Phoslo) 2,001 mg PO TIDWM [facility] Stop: 08/21/19 08:01 Last Admin: 07/24/19 17:00 Dose: 2,001 mg Cyanocobalamin (Vitamin B-12) 2,000 mcg PO DAILY [facility] Stop: 08/21/19 08:01 Last Admin: 07/24/19 08:58 Dose: 2,000 mcg Doxazosin Mesylate (Cardura) 2 mg PO BID PRN PRN Reason: Titrate to SBP (MUST DEFINE) Stop: 08/20/19 20:01 Heparin Sodium (Porcine) (Heparin 1,000 Units/Ml) 6,000 unit IV EVERY HD PRN PRN Reason: FLUSH AFTER EACH USE Stop: 08/21/19 11:39 Home Med (Home Med) 2 ea PO BEDTIME PRN PRN PRN Reason: INSOMNIA Stop: 08/20/19 19:01 Home Med (Home Med) 1 ea PO DAILY [facility] Stop: 08/21/19 08:01 Last Admin: 07/22/19 08:00 Dose: Not Given Home Med (Home Med) 0 ea PO Cristina@0800 [facility] Stop: 08/25/19 08:01 Home Med (Home Med) 0 ea PO DAILY [facility] Stop: 08/21/19 08:01 Last Admin: 07/24/19 09:00 Dose: 1 ea Home Med (Home Med) 0 ea PO DAILY [facility] Stop: 08/21/19 08:01 Last Admin: 07/24/19 08:59 Dose: 1 ea Home Med (Home Med) 0 ea PO DAILY [facility] Stop: 08/21/19 08:01 Last Admin: 07/24/19 09:00 Dose: 1 ea Albumin Human (Albumin 25%) 50 mls @ 100 mls/hr IV EVERY HD [facility] Stop: 08/21/19 12:01 Ipratropium [place] (Atrovent Neb) 0.5 mg NEB [id number] [facility] Stop: 08/20/19 20:01 Last Admin: 07/24/19 20:00 Dose: 0.5 mg Levetiracetam (Keppra Tab) 500 mg PO BID [facility] Stop: 08/20/19 20:01 Last Admin: 07/24/19 20:38 Dose: 500 mg Lidocaine (Aspercreme 4% Patch) 2 patch TOP DAILY [facility] Stop: 08/22/19 08:01 Last Admin: 07/24/19 08:54 Dose: 2 patch Loratadine (Claritin) 10 mg PO DAILY [facility] Stop: 08/21/19 08:01 Last Admin: 07/24/19 08:59 Dose: 10 mg Mannitol (Mannitol 12.5 Gm/50 Ml Vial) 12.5 gm IV EVERY HD PRN PRN Reason: Titrate to SBP (MUST DEFINE) Stop: 08/21/19 11:39 Metoprolol Succinate (Toprol Xl) 50 mg PO BID [facility] Stop: 08/20/19 20:01 Last Admin: 07/24/19 20:00 Dose: Not Given Nutritional Formula (Promod Liquid Protein) 30 ml PO BID [facility] Stop: 08/23/19 08:01 Last Admin: 07/24/19 20:46 Dose: 30 ml Polyethylene Glycol (Glycolax) 17 gm PO DAILY PRN PRN Reason: CONSTIPATION Stop: 08/20/19 18:44 Ranitidine HCl (Zantac) 150 mg PO DAILY [facility] Stop: 08/21/19 08:01 Last Admin: 07/24/19 08:59 Dose: 150 mg Tramadol HCl (Ultram) 50 mg PO Q4HP PRN PRN Reason: Pain scale 5-7 (Moderate) Stop: 08/21/19 08:39 Last Admin: 07/24/19 08:57 Dose: 50 mg Triamcinolone Acetonide (Kenalog 0.1% Cream) 1 appl TOP BID PRN PRN Reason: RASH Stop: 08/20/19 19:05 Warfarin Sodium (Coumadin) 2.5 mg PO DAILY 5 PM [facility] Stop: 08/21/19 17:01 Last Admin: 07/24/19 17:00 Dose: 2.5 mg Warfarin Sodium (Coumadin) 2 mg PO DAILY 5 PM [facility] Stop: 08/21/19 17:01 Last Admin: 07/24/19 17:00 Dose: 2 mg Lab Results (last 24 hrs) 07/24/19 05:59: PT 23.9 H, INR 2.08 Assessment/ Plan: Nephrology Feeling better today. CPS stable without CP or SOB. No acute events overnight. Vitals, medications, blood work and imaging reviewed in the chart. General: In no apparent distress, Oriented x3, Cooperative HEENT: Atraumatic, Mucous membr. moist/pink Neck: Supple Respiratory: Clear to auscultation bilaterally, Normal air movement Cardiovascular: Regular rate/rhythm, No rubs, Edema Gastrointestinal: Soft and benign, Non-distended Musculoskeletal: No clubbing, No contractures Integumentary: No rashes, No significant lesion, No cyanosis Neurological: Normal speech Laboratory Data (last 24 hrs) 07/23/19 06:17: Sodium 137, Potassium 4.2, BUN 48 H D, Creatinine 7.32 H* D, Glucose 94, Magnesium 2.4 07/23/19 06:17: WBC 10.2, Hgb 11.0 L, Hct 32.2 L, Plt Count 229 07/23/19 06:17: PT 21.6 H, INR 1.88 Imagings Data: EXAM DESCRIPTION: Sera Single View07/16/2019 4:25 pm CLINICAL HISTORY: Chest pain COMPARISON: July 15 FINDINGS: Old left rib fractures Lungs appear clear of acute infiltrate The heart is mildly enlarged IMPRESSION: No acute abnormality displayed Conclusions/Impression: A/ ESRD on HD. Hyperkalemia. Diastolic CHF, chronic. HTN with CKD/ CHF. Anemia in CKD. PRASANNA/ Secondary HyperPTH. AMS with weakness of unclear etiology. TIA? P/ Continue current POC and Medications. Arrange for acute HD today. Encourage nutrition. PT as tolerated. AM labs. Daily weight. No NSAIDs.
[2019-07-25] MEDS: ALBUTEROL 2.5 MG/3 ML NEB SOL NEB SCH ×4 (01:37→20:00)
[2019-07-25] MEDS: IPRATROPIUM BROM 0.5MG/2.5ML NEB SCH ×4 (01:37→20:00)
--- NOTE | 2019-07-25 02:23 | FAST ---
SHIFT START DATE/TIME: 07/24/2019 19:00 (OBIEE ARCHITECT) SHIFT END DATE/TIME: 07/25/2019 07:00 (OBIEE ARCHITECT) NAME CHELA RUBALCAVA DATE OF : 1935 DATE OF ADMISSION: 07/21/2019 17:57 (OBIEE ARCHITECT) PHONE: AGE: 84 SSN# [id number] GENDER: Male ENCOUNTER PHYSICIAN: Dr. Gamal Lafleur M.D. ADMISSION DIAGNOSIS: - Debility 16 - Debility (16) ESRD. EATING: Not assessed/no information CODE: - ORAL HYGIENE: ORAL HYGIENE - STEP 1: Does the patient complete the activity by him/herself with no assistance (physical, verbal/nonverbal cueing, setup/clean-up)? No. ORAL HYGIENE - STEP 2: Does the patient need only setup/clean-up assistance from one helper? No. ORAL HYGIENE - STEP 3: Does the patient need only verbal/nonverbal cueing or touching/steadying/contact guard assistance fro m one helper? Yes. 1. [id number] ADMISSION PERFORMANCE: Supervision or touching assistance CODE: 04 TOILETING HYGIENE: TOILETING HYGIENE - STEP 1: Does the patient complete the activity by him/herself with no assistance (physical, verbal/nonverbal cueing, setup/clean-up)? No. TOILETING HYGIENE - STEP 2: Does the patient need only setup/clean-up assistance from one helper? No. TOILETING HYGIENE - STEP 3: Does the patient need only verbal/nonverbal cueing or touching/steadying/contact guard assistance fro m one helper? No. TOILETING HYGIENE - STEP 4: Does the patient need physical assistance - for example lifting or trunk support from one helper - wi th the helper providing less than half of the effort? Yes. 1. [id number] ADMISSION PERFORMANCE: Partial/moderate assistance CODE: 03 BATHING: Not assessed/no information CODE: - DRESSING - UPPER BODY: Not assessed/no information CODE: - DRESSING - LOWER BODY: Not assessed/no information CODE: - PUTTING ON/TAKING OFF FOOTWEAR: Not assessed/no information CODE: - TRANSFERS: CAR: Not assessed/no information CODE: - WALK 10 FEET: Not assessed/no information CODE: - 1 STEP (CURB): Not assessed/no information CODE: - PICKING UP OBJECT: Not assessed/no information CODE: - DOES THE PATIENT USE A WHEELCHAIR/SCOOTER? CODE: EXPR WHEEL 50 FEET WITH TWO TURNS: Not assessed/no information CODE: - INDICATE THE TYPE OF WHEELCHAIR/SCOOTER USED: CODE: EXPR WHEEL 150 FEET: Not assessed/no information CODE: - INDICATE THE TYPE OF WHEELCHAIR/SCOOTER USED: CODE: EXPR BLADDER AND BOWEL: H350. BLADDER CONTINENCE (3-DAY ASSESSMENT PERIOD): Always continent (no documented incontinence) CODE: 0 H400. BOWEL CONTINENCE (3-DAY ASSESSMENT PERIOD): Always continent CODE: 0
[2019-07-25 06:42] LABS: Protime INR 2.29
[2019-07-25] MEDS: LIDOCAINE 4% PATCH TOP SCH (07:38)
[2019-07-25] MEDS: HYDROCODONE/APAP 10/325 TAB PO PRN (08:09)
[2019-07-25] MEDS: CA ACETATE 667 MG CAP PO SCH ×3 (08:11→17:16)
[2019-07-25] MEDS: levETIRAcetam 500 MG TAB PO SCH ×2 (08:12→20:30)
[2019-07-25] MEDS: CYANOCOBALAMIN 1,000 MCG TAB PO SCH (08:12)
[2019-07-25] MEDS: RANITIDINE 150 MG TABLET PO SCH (08:12)
[2019-07-25] MEDS: LORATADINE 10 MG TAB PO SCH (08:12)
[2019-07-25] MEDS: METOPROLOL XL 50 MG TAB PO SCH ×2 (08:12→20:31)
[2019-07-25] MEDS: PROMOD 30 ML DOSE PO SCH ×2 (08:13→20:30)
[2019-07-25] MEDS: ULORIC 80 MG PO SCH (08:15)
[2019-07-25] MEDS: RENA VITE PO SCH (08:15)
[2019-07-25] MEDS: [UNRECOGNIZED DRUG - OTHER] PO SCH (08:15)
--- NOTE | 2019-07-25 14:42 | FAST ---
ENCOUNTER DATE AND TIME: 07/23/2019 08:00 (DOOR PERSON) NAME CHELA RUBALCAVA DATE OF : 1935 DATE OF ADMISSION: 07/21/2019 17:57 (DOOR PERSON) PHONE: AGE: 84 N# [id number] GENDER: Male ENCOUNTER PHYSICIAN: Dr. Gamal Lafleur M.D. ADMISSION DIAGNOSIS: - Debility 16 - Debility (16) ESRD. EATING: Not assessed/no information CODE: - ORAL HYGIENE: Not assessed/no information CODE: - TOILETING HYGIENE: Not assessed/no information CODE: - BATHING: SHOWER/BATHE SELF - STEP 1: Does the patient complete the activity by him/herself with no assistance (physical, verbal/nonverbal cueing, setup/clean-up)? No. SHOWER/BATHE SELF - STEP 2: Does the patient need only setup/clean-up assistance from one helper? No. SHOWER/BATHE SELF - STEP 3: Does the patient need only verbal/nonverbal cueing or touching/steadying/contact guard assistance fro m one helper? No. SHOWER/BATHE SELF - STEP 4: Does the patient need physical assistance - for example lifting or trunk support from one helper - wi th the helper providing less than half of the effort? No. SHOWER/BATHE SELF - STEP 5: Does the patient need physical assistance - for example lifting or trunk support from one helper - wi th the helper providing more than half of the effort? No. SHOWER/BATHE SELF - STEP 6: Does the helper provide all of the effort? OR Is the assistance of two or more helpers required to co mplete the activity? Yes. 1. [id number] ADMISSION PERFORMANCE: Dependent CODE: 01 DRESSING - UPPER BODY: DRESSING - UPPER BODY - STEP 1: Does the patient complete the activity by him/herself with no assistance (physical, verbal/nonverbal cueing, setup/clean-up)? No. DRESSING - UPPER BODY - STEP 2: Does the patient need only setup/clean-up assistance from one helper? No. DRESSING - UPPER BODY - STEP 3: Does the patient need only verbal/nonverbal cueing or touching/steadying/contact guard assistance fro m one helper? No. DRESSING - UPPER BODY - STEP 4: Does the patient need physical assistance - for example lifting or trunk support from one helper - wi th the helper providing less than half of the effort? No. DRESSING - UPPER BODY - STEP 5: Does the patient need physical assistance - for example lifting or trunk support from one helper - wi th the helper providing more than half of the effort? Yes. 1. [id number] ADMISSION PERFORMANCE: Substantial/maximal assistance CODE: 02 DRESSING - LOWER BODY: DRESSING - LOWER BODY - STEP 1: Does the patient complete the activity by him/herself with no assistance (physical, verbal/nonverbal cueing, setup/clean-up)? No. DRESSING - LOWER BODY - STEP 2: Does the patient need only setup/clean-up assistance from one helper? No. DRESSING - LOWER BODY - STEP 3: Does the patient need only verbal/nonverbal cueing or touching/steadying/contact guard assistance fro m one helper? No. DRESSING - LOWER BODY - STEP 4: Does the patient need physical assistance - for example lifting or trunk support from one helper - wi th the helper providing less than half of the effort? No. DRESSING - LOWER BODY - STEP 5: Does the patient need physical assistance - for example lifting or trunk support from one helper - wi th the helper providing more than half of the effort? No. DRESSING - LOWER BODY - STEP 6: Does the helper provide all of the effort? OR Is the assistance of two or more helpers required to co mplete the activity? Yes. 1. [id number] ADMISSION PERFORMANCE: Dependent CODE: 01 PUTTING ON/TAKING OFF FOOTWEAR: FOOTWEAR - STEP 1: Does the patient complete the activity by him/herself with no assistance (physical, verbal/nonverbal cueing, setup/clean-up)? No. FOOTWEAR - STEP 2: Does the patient need only setup/clean-up assistance from one helper? No. FOOTWEAR - STEP 3: Does the patient need only verbal/nonverbal cueing or touching/steadying/contact guard assistance fro m one helper? No. FOOTWEAR - STEP 4: Does the patient need physical assistance - for example lifting or trunk support from one helper - wi th the helper providing less than half of the effort? No. FOOTWEAR - STEP 5: Does the patient need physical assistance - for example lifting or trunk support from one helper - wi th the helper providing more than half of the effort? No. FOOTWEAR - STEP 6: Does the helper provide all of the effort? OR Is the assistance of two or more helpers required to co mplete the activity? Yes. 1. [id number] ADMISSION PERFORMANCE: Dependent CODE: 01 DOES THE PATIENT USE A WHEELCHAIR/SCOOTER? CODE: EXPR INDICATE THE TYPE OF WHEELCHAIR/SCOOTER USED: CODE: EXPR INDICATE THE TYPE OF WHEELCHAIR/SCOOTER USED: CODE: EXPR BLADDER AND BOWEL: CODE: EXPR CODE: EXPR SIGNATURE PANEL: The following modified sections: 1. [id number] Admission Performance, 1. [id number] Admission Performance, 1. [id number] Admission Performance, 1. [id number] Admission Performance were [electronically] signed by Mac Bermeo OT on Sat Jul 25 2019 14:41:29 GMT-0600 (Central Standard Time)
[2019-07-25] MEDS: WARFARIN SODIUM 2 MG TAB PO SCH (17:16)
[2019-07-25] MEDS: WARFARIN SODIUM 2.5 MG TAB PO SCH (17:16)
[2019-07-25] MEDS: ATORVASTATIN 40 MG TAB PO SCH (20:30)
[2019-07-26] MEDS: IPRATROPIUM BROM 0.5MG/2.5ML NEB SCH ×4 (02:00→20:00)
[2019-07-26] MEDS: ALBUTEROL 2.5 MG/3 ML NEB SOL NEB SCH ×4 (02:00→20:00)
[2019-07-26] MEDS: TRAMADOL HCL 50 MG TAB PO PRN (05:07)
[2019-07-26 06:35] LABS: Protime INR 2.47
[2019-07-26] MEDS: LIDOCAINE 4% PATCH TOP SCH (06:52)
[2019-07-26] MEDS: HYDROCODONE/APAP 10/325 TAB PO PRN ×2 (08:07→13:06)
[2019-07-26] MEDS: levETIRAcetam 500 MG TAB PO SCH ×2 (08:09→19:48)
[2019-07-26] MEDS: RANITIDINE 150 MG TABLET PO SCH (08:09)
[2019-07-26] MEDS: METOPROLOL XL 50 MG TAB PO SCH ×2 (08:09→19:48)
[2019-07-26] MEDS: CYANOCOBALAMIN 1,000 MCG TAB PO SCH (08:09)
[2019-07-26] MEDS: PROMOD 30 ML DOSE PO SCH ×2 (08:10→19:46)
[2019-07-26] MEDS: [UNRECOGNIZED DRUG - OTHER] PO SCH (08:11)
[2019-07-26] MEDS: VITAMIN D3 50000 UNIT PO SCH (08:11)
[2019-07-26] MEDS: LORATADINE 10 MG TAB PO SCH (08:12)
[2019-07-26] MEDS: RENA VITE PO SCH (08:12)
[2019-07-26] MEDS: ULORIC 80 MG PO SCH (08:12)
[2019-07-26] MEDS: CA ACETATE 667 MG CAP PO SCH ×3 (08:13→16:42)
--- NOTE | 2019-07-26 14:10 | FAST ---
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 Gamal Lafleur M.D. ADMISSION DIAGNOSIS: - Debility 16 - Debility (16) ESRD. EATING: EATING - STEP 1: Does the patient complete the activity by him/herself with no assistance (physical, verbal/nonverbal cueing, setup/clean-up)? No. EATING - STEP 2: Does the patient need only setup/clean-up assistance from one helper? Yes. 1. [id number] ADMISSION PERFORMANCE: Setup or clean-up assistance CODE: 05 ORAL HYGIENE: ORAL HYGIENE - STEP 1: Does the patient complete the activity by him/herself with no assistance (physical, verbal/nonverbal cueing, setup/clean-up)? No. ORAL HYGIENE - STEP 2: Does the patient need only setup/clean-up assistance from one helper? No. ORAL HYGIENE - STEP 3: Does the patient need only verbal/nonverbal cueing or touching/steadying/contact guard assistance fro m one helper? Yes. 1. [id number] ADMISSION PERFORMANCE: Supervision or touching assistance CODE: 04 TOILETING HYGIENE: TOILETING HYGIENE - STEP 1: Does the patient complete the activity by him/herself with no assistance (physical, verbal/nonverbal cueing, setup/clean-up)? No. TOILETING HYGIENE - STEP 2: Does the patient need only setup/clean-up assistance from one helper? No. TOILETING HYGIENE - STEP 3: Does the patient need only verbal/nonverbal cueing or touching/steadying/contact guard assistance fro m one helper? No. TOILETING HYGIENE - STEP 4: Does the patient need physical assistance - for example lifting or trunk support from one helper - wi th the helper providing less than half of the effort? Yes. 1. [id number] ADMISSION PERFORMANCE: Partial/moderate assistance CODE: 03 BATHING: Not assessed/no information CODE: - DRESSING - UPPER BODY: DRESSING - UPPER BODY - STEP 1: Does the patient complete the activity by him/herself with no assistance (physical, verbal/nonverbal cueing, setup/clean-up)? No. DRESSING - UPPER BODY - STEP 2: Does the patient need only setup/clean-up assistance from one helper? No. DRESSING - UPPER BODY - STEP 3: Does the patient need only verbal/nonverbal cueing or touching/steadying/contact guard assistance fro m one helper? No. DRESSING - UPPER BODY - STEP 4: Does the patient need physical assistance - for example lifting or trunk support from one helper - wi th the helper providing less than half of the effort? No. DRESSING - UPPER BODY - STEP 5: Does the patient need physical assistance - for example lifting or trunk support from one helper - wi th the helper providing more than half of the effort? Yes. 1. [id number] ADMISSION PERFORMANCE: Substantial/maximal assistance CODE: 02 DRESSING - LOWER BODY: DRESSING - LOWER BODY - STEP 1: Does the patient complete the activity by him/herself with no assistance (physical, verbal/nonverbal cueing, setup/clean-up)? No. DRESSING - LOWER BODY - STEP 2: Does the patient need only setup/clean-up assistance from one helper? No. DRESSING - LOWER BODY - STEP 3: Does the patient need only verbal/nonverbal cueing or touching/steadying/contact guard assistance fro m one helper? No. DRESSING - LOWER BODY - STEP 4: Does the patient need physical assistance - for example lifting or trunk support from one helper - wi th the helper providing less than half of the effort? No. DRESSING - LOWER BODY - STEP 5: Does the patient need physical assistance - for example lifting or trunk support from one helper - wi th the helper providing more than half of the effort? Yes. 1. [id number] ADMISSION PERFORMANCE: Substantial/maximal assistance CODE: 02 PUTTING ON/TAKING OFF FOOTWEAR: FOOTWEAR - STEP 1: Does the patient complete the activity by him/herself with no assistance (physical, verbal/nonverbal cueing, setup/clean-up)? No. FOOTWEAR - STEP 2: Does the patient need only setup/clean-up assistance from one helper? No. FOOTWEAR - STEP 3: Does the patient need only verbal/nonverbal cueing or touching/steadying/contact guard assistance fro m one helper? No. FOOTWEAR - STEP 4: Does the patient need physical assistance - for example lifting or trunk support from one helper - wi th the helper providing less than half of the effort? No. FOOTWEAR - STEP 5: Does the patient need physical assistance - for example lifting or trunk support from one helper - wi th the helper providing more than half of the effort? No. FOOTWEAR - STEP 6: Does the helper provide all of the effort? OR Is the assistance of two or more helpers required to co mplete the activity? Yes. 1. [id number] ADMISSION PERFORMANCE: Dependent CODE: 01 ROLL LEFT AND RIGHT: ROLL LEFT AND RIGHT - STEP 1: Does the patient complete the activity by him/herself with no assistance (physical, verbal/nonverbal cueing, setup/clean-up)? No. ROLL LEFT AND RIGHT - STEP 2: Does the patient need only setup/clean-up assistance from one helper? No. ROLL LEFT AND RIGHT - STEP 3: Does the patient need only verbal/nonverbal cueing or touching/steadying/contact guard assistance fro m one helper? No. ROLL LEFT AND RIGHT - STEP 4: Does the patient need physical assistance - for example lifting or trunk support from one helper - wi th the helper providing less than half of the effort? No. ROLL LEFT AND RIGHT - STEP 5: Does the patient need physical assistance - for example lifting or trunk support from one helper - wi th the helper providing more than half of the effort? Yes. 1. [id number] ADMISSION PERFORMANCE: Substantial/maximal assistance CODE: 02 SIT TO LYING: SIT TO LYING - STEP 1: Does the patient complete the activity by him/herself with no assistance (physical, verbal/nonverbal cueing, setup/clean-up)? No. SIT TO LYING - STEP 2: Does the patient need only setup/clean-up assistance from one helper? No. SIT TO LYING - STEP 3: Does the patient need only verbal/nonverbal cueing or touching/steadying/contact guard assistance fro m one helper? No. SIT TO LYING - STEP 4: Does the patient need physical assistance - for example lifting or trunk support from one helper - wi th the helper providing less than half of the effort? No. SIT TO LYING - STEP 5: Does the patient need physical assistance - for example lifting or trunk support from one helper - wi th the helper providing more than half of the effort? Yes. 1. [id number] ADMISSION PERFORMANCE: Substantial/maximal assistance CODE: 02 LYING TO SITTING: LYING TO SITTING ON SIDE OF BED - STEP 1: Does the patient complete the activity by him/herself with no assistance (physical, verbal/nonverbal cueing, setup/clean-up)? No. LYING TO SITTING ON SIDE OF BED - STEP 2: Does the patient need only setup/clean-up assistance from one helper? No. LYING TO SITTING ON SIDE OF BED - STEP 3: Does the patient need only verbal/nonverbal cueing or touching/steadying/contact guard assistance fro m one helper? No. LYING TO SITTING ON SIDE OF BED - STEP 4: Does the patient need physical assistance - for example lifting or trunk support from one helper - wi th the helper providing less than half of the effort? Yes. 1. [id number] ADMISSION PERFORMANCE: Partial/moderate assistance CODE: 03 SIT TO STAND: SIT TO STAND - STEP 1: Does the patient complete the activity by him/herself with no assistance (physical, verbal/nonverbal cueing, setup/clean-up)? No. SIT TO STAND - STEP 2: Does the patient need only setup/clean-up assistance from one helper? No. SIT TO STAND - STEP 3: Does the patient need only verbal/nonverbal cueing or touching/steadying/contact guard assistance fro m one helper? No. SIT TO STAND - STEP 4: Does the patient need physical assistance - for example lifting or trunk support from one helper - wi th the helper providing less than half of the effort? No. SIT TO STAND - STEP 5: Does the patient need physical assistance - for example lifting or trunk support from one helper - wi th the helper providing more than half of the effort? Yes. 1. [id number] ADMISSION PERFORMANCE: Substantial/maximal assistance CODE: 02 TRANSFERS: BED, CHAIR: CHAIR/[id number] TRANSFER - STEP 1: Does the patient complete the activity by him/herself with no assistance (physical, verbal/nonverbal cueing, setup/clean-up)? No. CHAIR/[id number] TRANSFER - STEP 2: Does the patient need only setup/clean-up assistance from one helper? No. CHAIR/[id number] TRANSFER - STEP 3: Does the patient need only verbal/nonverbal cueing or touching/steadying/contact guard assistance fro m one helper? No. CHAIR/[id number] TRANSFER - STEP 4: Does the patient need physical assistance - for example lifting or trunk support from one helper - wi th the helper providing less than half of the effort? No. CHAIR/[id number] TRANSFER - STEP 5: Does the patient need physical assistance - for example lifting or trunk support from one helper - wi th the helper providing more than half of the effort? Yes. 1. [id number] ADMISSION PERFORMANCE: Substantial/maximal assistance CODE: 02 TRANSFER TOILET: TOILET TRANSFER - STEP 1: Does the patient complete the activity by him/herself with no assistance (physical, verbal/nonverbal cueing, setup/clean-up)? No. TOILET TRANSFER - STEP 2: Does the patient need only setup/clean-up assistance from one helper? No. TOILET TRANSFER - STEP 3: Does the patient need only verbal/nonverbal cueing or touching/steadying/contact guard assistance fro m one helper? No. TOILET TRANSFER - STEP 4: Does the patient need physical assistance - for example lifting or trunk support from one helper - wi th the helper providing less than half of the effort? No. TOILET TRANSFER - STEP 5: Does the patient need physical assistance - for example lifting or trunk support from one helper - wi th the helper providing more than half of the effort? Yes. 1. [id number] ADMISSION PERFORMANCE: Substantial/maximal assistance CODE: 02 TRANSFERS: CAR: Not assessed/no information CODE: - WALK 10 FEET: Not assessed/no information CODE: - 1 STEP (CURB): Not assessed/no information CODE: - PICKING UP OBJECT: Not assessed/no information CODE: - DOES THE PATIENT USE A WHEELCHAIR/SCOOTER? Q1. DOES THE PATIENT USE A WHEELCHAIR/SCOOTER?: Yes CODE: 1 WHEEL 50 FEET WITH TWO TURNS: Not assessed/no information CODE: - INDICATE THE TYPE OF WHEELCHAIR/SCOOTER USED: RR1. INDICATE THE TYPE OF WHEELCHAIR/SCOOTER USED.: Manual CODE: 1 WHEEL 150 FEET: WHEEL 150 FEET - STEP 1: Does the patient complete the activity by him/herself with no assistance (physical, verbal/nonverbal cueing, setup/clean-up)? No. WHEEL 150 FEET - STEP 2: Does the patient need only setup/clean-up assistance from one helper? No. WHEEL 150 FEET - STEP 3: Does the patient need only verbal/nonverbal cueing or touching/steadying/contact guard assistance fro m one helper? No. WHEEL 150 FEET - STEP 4: Does the patient need physical assistance - for example lifting or trunk support from one helper - wi th the helper providing less than half of the effort? No. WHEEL 150 FEET - STEP 5: Does the patient need physical assistance - for example lifting or trunk support from one helper - wi th the helper providing more than half of the effort? Yes. 1. [id number] ADMISSION PERFORMANCE: Substantial/maximal assistance CODE: 02 INDICATE THE TYPE OF WHEELCHAIR/SCOOTER USED: SS1. INDICATE THE TYPE OF WHEELCHAIR/SCOOTER USED.: Manual CODE: 1 BLADDER AND BOWEL: H350. BLADDER CONTINENCE (3-DAY ASSESSMENT PERIOD): Incontinent daily (at least once a day) CODE: 3 H400. BOWEL CONTINENCE (3-DAY ASSESSMENT PERIOD): Occasionally incontinent (one episode of bowel incontinence) CODE: 1 SIGNATURE PANEL: The following modified sections: 1. [id number] Admission Performance, 1. HL9534G Admission Performance, 1. FX4250T Admission Performance, 1. NR2199S Admission Performance, 1. PS4128D Admission Performance, 1. EW9304b Admission Performance, 1. UV4878o Admission Performance, 1. HU9093n Admission Performance , 1. UM7753h Admission Performance, 1. FN1337y Admission Performance, 1. QQ8910B Admission Performanc e, 1. TT5123E Admission Performance, 1. ZE6010A Admission Performance, 1. BP0943M Admission Performan ce, 1. NI7253T Admission Performance, 1. [id number] Admission Performance, Q1. Does the patient use a wh eelchair/scooter?, RR1. Indicate the type of wheelchair/scooter used., 1. OP5627H Admission Performan ce, Code, SS1. Indicate the type of wheelchair/scooter used., H350. Bladder Continence (3-day assessm ent period), H400. Bowel Continence (3-day assessment period), 1. [id number] Admission Performance were [electronically] signed by Lorene La C.N.A. on SatJul 26 2019 14:08:49 [facility]-0600 (Central Standar d Time)
[2019-07-26] MEDS: WARFARIN SODIUM 2.5 MG TAB PO SCH (16:43)
[2019-07-26] MEDS: WARFARIN SODIUM 2 MG TAB PO SCH (16:43)
--- NOTE | 2019-07-26 19:25 | PN ---
Date of Progress Note: 07/26/2019 Subjective: Patient is seen at bedside. No events reported. The patient feels well. Feels stronge r today. He denies any fevers, chills, chest pain, shortness of breath, nausea, vomiting, or diarrhe a. Objective: Vital Signs: Blood pressure 130/62, pulse 69, afebrile. General: No acute distress. Heart: Regular rate and rhythm. No murmurs, rubs, gallops. Lungs: Clear auscultation bilaterally. Abdomen: Soft, nontender, nondistended. Positive bowel sounds x4. Extremities: No significant edema. Laboratory Data: Serum chemistry, potassium 4.2, BUN 48, creatinine 7.32, hemoglobin 11 and hematocr it 32.2. Current Medications: Reviewed. Impression: 1.End-stage renal disease, on hemodialysis. 2.Hypertension. 3.Atrial fibrillation. 4.Debility and weakness. Plan: Continue routine dialysis. Continue current antihypertensive regimen. Please continue the pa tient on renal diet. Continue PT, OT. We will continue to follow. /LISA Voice ID: [id number] Report ID: [id number]
[2019-07-26] MEDS: ATORVASTATIN 40 MG TAB PO SCH (19:49)
[2019-07-27] MEDS: TRAMADOL HCL 50 MG TAB PO PRN ×2 (01:12→09:11)
[2019-07-27] MEDS: IPRATROPIUM BROM 0.5MG/2.5ML NEB SCH ×4 (01:25→20:00)
[2019-07-27] MEDS: ALBUTEROL 2.5 MG/3 ML NEB SOL NEB SCH ×4 (01:25→20:00)
[2019-07-27 06:37] LABS: Protime INR 2.72
[2019-07-27] MEDS: [UNRECOGNIZED DRUG - OTHER] PO SCH (08:18)
[2019-07-27] MEDS: RENA VITE PO SCH (08:19)
[2019-07-27] MEDS: levETIRAcetam 500 MG TAB PO SCH ×2 (08:20→20:50)
[2019-07-27] MEDS: ULORIC 80 MG PO SCH (08:20)
[2019-07-27] MEDS: CA ACETATE 667 MG CAP PO SCH ×3 (08:21→17:03)
[2019-07-27] MEDS: LORATADINE 10 MG TAB PO SCH (08:22)
[2019-07-27] MEDS: LIDOCAINE 4% PATCH TOP SCH (08:22)
[2019-07-27] MEDS: CYANOCOBALAMIN 1,000 MCG TAB PO SCH (08:22)
[2019-07-27] MEDS: METOPROLOL XL 50 MG TAB PO SCH ×2 (08:23→20:51)
[2019-07-27] MEDS: RANITIDINE 150 MG TABLET PO SCH (08:23)
[2019-07-27] MEDS: ACETAMINOPHEN 500 MG TAB PO PRN (08:25)
[2019-07-27] MEDS: PROMOD 30 ML DOSE PO SCH ×2 (08:26→20:50)
[2019-07-27] MEDS: HYDROCODONE/APAP 10/325 TAB PO PRN (11:24)
--- NOTE | 2019-07-27 11:25 | FAST ---
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 Gamal Lafleur M.D. ADMISSION DIAGNOSIS: - Debility 16 - Debility (16) ESRD. EATING: EATING - STEP 1: Does the patient complete the activity by him/herself with no assistance (physical, verbal/nonverbal cueing, setup/clean-up)? No. EATING - STEP 2: Does the patient need only setup/clean-up assistance from one helper? No. EATING - STEP 3: Does the patient need only verbal/nonverbal cueing or touching/steadying/contact guard assistance fro m one helper? No. EATING - STEP 4: Does the patient need physical assistance - for example lifting or trunk support from one helper - wi th the helper providing less than half of the effort? Yes. 1. [id number] ADMISSION PERFORMANCE: Partial/moderate assistance CODE: 03 ORAL HYGIENE: ORAL HYGIENE - STEP 1: Does the patient complete the activity by him/herself with no assistance (physical, verbal/nonverbal cueing, setup/clean-up)? No. ORAL HYGIENE - STEP 2: Does the patient need only setup/clean-up assistance from one helper? No. ORAL HYGIENE - STEP 3: Does the patient need only verbal/nonverbal cueing or touching/steadying/contact guard assistance fro m one helper? Yes. 1. [id number] ADMISSION PERFORMANCE: Supervision or touching assistance CODE: 04 TOILETING HYGIENE: TOILETING HYGIENE - STEP 1: Does the patient complete the activity by him/herself with no assistance (physical, verbal/nonverbal cueing, setup/clean-up)? No. TOILETING HYGIENE - STEP 2: Does the patient need only setup/clean-up assistance from one helper? No. TOILETING HYGIENE - STEP 3: Does the patient need only verbal/nonverbal cueing or touching/steadying/contact guard assistance fro m one helper? No. TOILETING HYGIENE - STEP 4: Does the patient need physical assistance - for example lifting or trunk support from one helper - wi th the helper providing less than half of the effort? Yes. 1. [id number] ADMISSION PERFORMANCE: Partial/moderate assistance CODE: 03 BATHING: Not assessed/no information CODE: - DRESSING - UPPER BODY: Not assessed/no information CODE: - DRESSING - LOWER BODY: Not assessed/no information CODE: - PUTTING ON/TAKING OFF FOOTWEAR: Not assessed/no information CODE: - ROLL LEFT AND RIGHT: Not assessed/no information CODE: - SIT TO LYING: Not assessed/no information CODE: - LYING TO SITTING: LYING TO SITTING ON SIDE OF BED - STEP 1: Does the patient complete the activity by him/herself with no assistance (physical, verbal/nonverbal cueing, setup/clean-up)? No. LYING TO SITTING ON SIDE OF BED - STEP 2: Does the patient need only setup/clean-up assistance from one helper? No. LYING TO SITTING ON SIDE OF BED - STEP 3: Does the patient need only verbal/nonverbal cueing or touching/steadying/contact guard assistance fro m one helper? No. LYING TO SITTING ON SIDE OF BED - STEP 4: Does the patient need physical assistance - for example lifting or trunk support from one helper - wi th the helper providing less than half of the effort? Yes. 1. [id number] ADMISSION PERFORMANCE: Partial/moderate assistance CODE: 03 SIT TO STAND: SIT TO STAND - STEP 1: Does the patient complete the activity by him/herself with no assistance (physical, verbal/nonverbal cueing, setup/clean-up)? No. SIT TO STAND - STEP 2: Does the patient need only setup/clean-up assistance from one helper? No. SIT TO STAND - STEP 3: Does the patient need only verbal/nonverbal cueing or touching/steadying/contact guard assistance fro m one helper? No. SIT TO STAND - STEP 4: Does the patient need physical assistance - for example lifting or trunk support from one helper - wi th the helper providing less than half of the effort? Yes. 1. [id number] ADMISSION PERFORMANCE: Partial/moderate assistance CODE: 03 TRANSFERS: BED, CHAIR: CHAIR/[id number] TRANSFER - STEP 1: Does the patient complete the activity by him/herself with no assistance (physical, verbal/nonverbal cueing, setup/clean-up)? No. CHAIR/[id number] TRANSFER - STEP 2: Does the patient need only setup/clean-up assistance from one helper? No. CHAIR/[id number]-[id number] TRANSFER - STEP 3: Does the patient need only verbal/nonverbal cueing or touching/steadying/contact guard assistance fro m one helper? No. CHAIR/[id number] TRANSFER - STEP 4: Does the patient need physical assistance - for example lifting or trunk support from one helper - wi th the helper providing less than half of the effort? No. CHAIR/[id number] TRANSFER - STEP 5: Does the patient need physical assistance - for example lifting or trunk support from one helper - wi th the helper providing more than half of the effort? Yes. 1. [id number] ADMISSION PERFORMANCE: Substantial/maximal assistance CODE: 02 TRANSFER TOILET: TOILET TRANSFER - STEP 1: Does the patient complete the activity by him/herself with no assistance (physical, verbal/nonverbal cueing, setup/clean-up)? No. TOILET TRANSFER - STEP 2: Does the patient need only setup/clean-up assistance from one helper? No. TOILET TRANSFER - STEP 3: Does the patient need only verbal/nonverbal cueing or touching/steadying/contact guard assistance fro m one helper? No. TOILET TRANSFER - STEP 4: Does the patient need physical assistance - for example lifting or trunk support from one helper - wi th the helper providing less than half of the effort? No. TOILET TRANSFER - STEP 5: Does the patient need physical assistance - for example lifting or trunk support from one helper - wi th the helper providing more than half of the effort? Yes. 1. [id number] ADMISSION PERFORMANCE: Substantial/maximal assistance CODE: 02 TRANSFERS: CAR: Not assessed/no information CODE: - WALK 10 FEET: Not assessed/no information CODE: - 1 STEP (CURB): Not assessed/no information CODE: - PICKING UP OBJECT: Not assessed/no information CODE: - DOES THE PATIENT USE A WHEELCHAIR/SCOOTER? CODE: EXPR WHEEL 50 FEET WITH TWO TURNS: Not assessed/no information CODE: - INDICATE THE TYPE OF WHEELCHAIR/SCOOTER USED: CODE: EXPR WHEEL 150 FEET: Not assessed/no information CODE: - INDICATE THE TYPE OF WHEELCHAIR/SCOOTER USED: CODE: EXPR BLADDER AND BOWEL: H350. BLADDER CONTINENCE (3-DAY ASSESSMENT PERIOD): No urine output (e.g., renal failure) CODE: 5 H400. BOWEL CONTINENCE (3-DAY ASSESSMENT PERIOD): Always continent CODE: 0 SIGNATURE PANEL: The following modified sections: 1. [id number] Admission Performance, 1. [id number] Admission Performance, 1. MB9291B Admission Performance, 1. OH8136H Admission Performance, 1. CZ6008B Admission Performance, 1. [id number] Admission Performance, 1. PU6477G Admission Performance, 1. AS9477X Admission Performance , 1. EC5582P Admission Performance, 1. TK8580M Admission Performance, Code, Code, H350. Bladder Guillermo nence (3-day assessment period), H350. Bladder Continence (3-day assessment period), H400. Bowel Cont inence (3-day assessment period) were [electronically] signed by Josiah Mojica on SatJul 27 2019 11:24: 25 GMT-0600 (Central Standard Time)
--- NOTE | 2019-07-27 12:19 | FAST ---
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 Gamal Lafleur M.D. ADMISSION DIAGNOSIS: - Debility 16 - Debility (16) ESRD. EATING: Not assessed/no information CODE: - ORAL HYGIENE: ORAL HYGIENE - STEP 1: Does the patient complete the activity by him/herself with no assistance (physical, verbal/nonverbal cueing, setup/clean-up)? Yes. 1. [id number] ADMISSION PERFORMANCE: Independent CODE: 06 TOILETING HYGIENE: Not assessed/no information CODE: - BATHING: SHOWER/BATHE SELF - STEP 1: Does the patient complete the activity by him/herself with no assistance (physical, verbal/nonverbal cueing, setup/clean-up)? No. SHOWER/BATHE SELF - STEP 2: Does the patient need only setup/clean-up assistance from one helper? No. SHOWER/BATHE SELF - STEP 3: Does the patient need only verbal/nonverbal cueing or touching/steadying/contact guard assistance fro m one helper? Yes. 1. [id number] ADMISSION PERFORMANCE: Supervision or touching assistance CODE: 04 DRESSING - UPPER BODY: DRESSING - UPPER BODY - STEP 1: Does the patient complete the activity by him/herself with no assistance (physical, verbal/nonverbal cueing, setup/clean-up)? No. DRESSING - UPPER BODY - STEP 2: Does the patient need only setup/clean-up assistance from one helper? Yes. 1. [id number] ADMISSION PERFORMANCE: Setup or clean-up assistance CODE: 05 DRESSING - LOWER BODY: DRESSING - LOWER BODY - STEP 1: Does the patient complete the activity by him/herself with no assistance (physical, verbal/nonverbal cueing, setup/clean-up)? No. DRESSING - LOWER BODY - STEP 2: Does the patient need only setup/clean-up assistance from one helper? No. DRESSING - LOWER BODY - STEP 3: Does the patient need only verbal/nonverbal cueing or touching/steadying/contact guard assistance fro m one helper? No. DRESSING - LOWER BODY - STEP 4: Does the patient need physical assistance - for example lifting or trunk support from one helper - wi th the helper providing less than half of the effort? Yes. 1. [id number] ADMISSION PERFORMANCE: Partial/moderate assistance CODE: 03 PUTTING ON/TAKING OFF FOOTWEAR: FOOTWEAR - STEP 1: Does the patient complete the activity by him/herself with no assistance (physical, verbal/nonverbal cueing, setup/clean-up)? No. FOOTWEAR - STEP 2: Does the patient need only setup/clean-up assistance from one helper? No. FOOTWEAR - STEP 3: Does the patient need only verbal/nonverbal cueing or touching/steadying/contact guard assistance fro m one helper? No. FOOTWEAR - STEP 4: Does the patient need physical assistance - for example lifting or trunk support from one helper - wi th the helper providing less than half of the effort? No. FOOTWEAR - STEP 5: Does the patient need physical assistance - for example lifting or trunk support from one helper - wi th the helper providing more than half of the effort? Yes. 1. [id number] ADMISSION PERFORMANCE: Substantial/maximal assistance CODE: 02 DOES THE PATIENT USE A WHEELCHAIR/SCOOTER? CODE: EXPR INDICATE THE TYPE OF WHEELCHAIR/SCOOTER USED: CODE: EXPR INDICATE THE TYPE OF WHEELCHAIR/SCOOTER USED: CODE: EXPR BLADDER AND BOWEL: CODE: EXPR CODE: EXPR SIGNATURE PANEL: The following modified sections: 1. [id number] Admission Performance, 1. [id number] Admission Performance, 1. [id number] Admission Performance, 1. [id number] Admission Performance, 1. [id number] Admission Performance were [electronically] signed by EDITH Cox on SatJul 27 2019 12:19:08 GMT-0600 (Central Standard Time)
[2019-07-27] MEDS: WARFARIN SODIUM 2.5 MG TAB PO SCH (16:45)
[2019-07-27] MEDS: WARFARIN SODIUM 2 MG TAB PO SCH (16:45)
[2019-07-27] MEDS: ATORVASTATIN 40 MG TAB PO SCH (20:50)
--- NOTE | 2019-07-27 21:53 | P.PN ---
Date of Service: 07/27/19 Vital Signs Temp Pulse Resp BP Pulse Ox 96.9 F 70 18 127/56 L 97 07/27/19 20:00 07/27/19 20:51 07/27/19 20:00 07/27/19 20:51 07/27/19 20:00 Medications Acetaminophen (Tylenol -Extra Strength) 500 mg PO Q4H PRN PRN Reason: Pain scale 2-4 (Mild) Stop: 08/21/19 10:31 Last Admin: 07/27/19 08:25 Dose: 500 mg Hydrocodone Bitart/Acetaminophen ([place] 10/325) 1 tab PO Q4H PRN PRN Reason: Pain scale 8-10 (Severe) Stop: 08/23/19 13:11 Last Admin: 07/27/19 11:24 Dose: 1 tab Albuterol Sulfate (Proventil 0.083% Neb Soln) 2.5 mg NEB [id number] [facility] Stop: 08/20/19 20:01 Last Admin: 07/27/19 15:20 Dose: 2.5 mg Atorvastatin Calcium (Lipitor) 40 mg PO BEDTIME [facility] Stop: 08/20/19 21:01 Last Admin: 07/27/19 20:50 Dose: 40 mg Calcium Acetate (Phoslo) 2,001 mg PO TIDWM [facility] Stop: 08/21/19 08:01 Last Admin: 07/27/19 17:03 Dose: 2,001 mg Cyanocobalamin (Vitamin B-12) 2,000 mcg PO DAILY [facility] Stop: 08/21/19 08:01 Last Admin: 07/27/19 08:22 Dose: 2,000 mcg Doxazosin Mesylate (Cardura) 2 mg PO BID PRN PRN Reason: Titrate to SBP (MUST DEFINE) Stop: 08/20/19 20:01 Duloxetine HCl (Cymbalta Delayed Release Pellets) 20 mg PO DAILY [facility] Stop: 08/27/19 08:01 Gabapentin (Neurontin) 300 mg PO DAILY [facility] Stop: 08/27/19 08:01 Guaifenesin (Robitussin 100mg/5ml) 100 mg PO QID PRN PRN Reason: COUGH Stop: 08/25/19 10:27 Heparin Sodium (Porcine) (Heparin 1,000 Units/Ml) 6,000 unit IV EVERY HD PRN PRN Reason: FLUSH AFTER EACH USE Stop: 08/21/19 11:39 Heparin Sodium (Porcine) (Heparin 1,000 Units/Ml) 2,000 unit IV EVERY HD [facility] Stop: 08/01/19 20:01 Home Med (Home Med) 0 ea PO BEDTIME PRN PRN PRN Reason: INSOMNIA Stop: 08/20/19 19:01 Home Med (Home Med) 0 ea PO Cristina@0800 [facility] Stop: 08/25/19 08:01 Last Admin: 07/26/19 08:11 Dose: 1 ea Home Med (Home Med) 0 ea PO DAILY [facility] Stop: 08/21/19 08:01 Last Admin: 07/27/19 08:18 Dose: 1 ea Home Med (Home Med) 0 ea PO DAILY [facility] Stop: 08/21/19 08:01 Last Admin: 07/27/19 08:19 Dose: 1 ea Home Med (Home Med) 0 ea PO DAILY [facility] Stop: 08/21/19 08:01 Last Admin: 07/27/19 08:20 Dose: 1 ea Home Med (Home Med) 0 ea PO DAILY [facility] Stop: 08/21/19 08:01 Albumin Human (Albumin 25%) 50 mls @ 100 mls/hr IV EVERY HD [facility] Stop: 08/21/19 12:01 Ipratropium [place] (Atrovent Neb) 0.5 mg NEB [id number] [facility] Stop: 08/20/19 20:01 Last Admin: 07/27/19 15:20 Dose: 0.5 mg Levetiracetam (Keppra Tab) 500 mg PO BID [facility] Stop: 08/20/19 20:01 Last Admin: 07/27/19 20:50 Dose: 500 mg Lidocaine (Aspercreme 4% Patch) 2 patch TOP DAILY [facility] Stop: 08/22/19 08:01 Last Admin: 07/27/19 08:22 Dose: 2 patch Loratadine (Claritin) 10 mg PO DAILY [facility] Stop: 08/21/19 08:01 Last Admin: 07/27/19 08:22 Dose: 10 mg Mannitol (Mannitol 12.5 Gm/50 Ml Vial) 12.5 gm IV EVERY HD PRN PRN Reason: Titrate to SBP (MUST DEFINE) Stop: 08/21/19 11:39 Metoprolol Succinate (Toprol Xl) 50 mg PO BID [facility] Stop: 08/20/19 20:01 Last Admin: 07/27/19 20:51 Dose: 50 mg Nutritional Formula (Promod Liquid Protein) 30 ml PO BID [facility] Stop: 08/23/19 08:01 Last Admin: 07/27/19 20:50 Dose: 30 ml Polyethylene Glycol (Glycolax) 17 gm PO DAILY PRN PRN Reason: CONSTIPATION Stop: 08/20/19 18:44 Ranitidine HCl (Zantac) 150 mg PO DAILY [facility] Stop: 08/21/19 08:01 Last Admin: 07/27/19 08:23 Dose: 150 mg Tramadol HCl (Ultram) 50 mg PO Q4HP PRN PRN Reason: Pain scale 5-7 (Moderate) Stop: 08/21/19 08:39 Last Admin: 07/27/19 09:11 Dose: 50 mg Triamcinolone Acetonide (Kenalog 0.1% Cream) 1 appl TOP BID PRN PRN Reason: RASH Stop: 08/20/19 19:05 Warfarin Sodium (Coumadin) 2.5 mg PO DAILY 5 PM [facility] Stop: 08/21/19 17:01 Last Admin: 07/27/19 16:45 Dose: 2.5 mg Warfarin Sodium (Coumadin) 2 mg PO DAILY 5 PM [facility] Stop: 08/21/19 17:01 Last Admin: 07/27/19 16:45 Dose: 2 mg Lab Results (last 24 hrs) 07/27/19 06:13: PT 30.9 H, INR 2.72 Assessment/ Plan: Nephrology Doing well. Poor improvement with PT. CPS stable without CP or SOB. No acute events overnight. Vitals, medications, blood work and imaging reviewed in the chart. General: In no apparent distress, Oriented x3, Cooperative HEENT: Atraumatic, Mucous membr. moist/pink Neck: Supple Respiratory: Clear to auscultation bilaterally, Normal air movement Cardiovascular: Regular rate/rhythm, No rubs, Edema Gastrointestinal: Soft and benign, Non-distended Musculoskeletal: No clubbing, No contractures Integumentary: No rashes, No significant lesion, No cyanosis Neurological: Normal speech Laboratory Data (last 24 hrs) 07/23/19 06:17: Sodium 137, Potassium 4.2, BUN 48 H D, Creatinine 7.32 H* D, Glucose 94, Magnesium 2.4 07/23/19 06:17: WBC 10.2, Hgb 11.0 L, Hct 32.2 L, Plt Count 229 07/23/19 06:17: PT 21.6 H, INR 1.88 Imagings Data: EXAM DESCRIPTION: Sera Single View07/16/2019 4:25 pm CLINICAL HISTORY: Chest pain COMPARISON: July 15 FINDINGS: Old left rib fractures Lungs appear clear of acute infiltrate The heart is mildly enlarged IMPRESSION: No acute abnormality displayed Conclusions/Impression: A/ ESRD on HD. Hyperkalemia. Diastolic CHF, chronic. HTN with CKD/ CHF. Anemia in CKD. PRASANNA/ Secondary HyperPTH. AMS with weakness of unclear etiology. TIA? P/ Continue current POC and Medications. Seen and examined on HD today. Tolerating the treatment well. Encourage nutrition. PT as tolerated. AM labs. Daily weight. No NSAIDs.
[2019-07-28] MEDS: IPRATROPIUM BROM 0.5MG/2.5ML NEB SCH ×4 (02:00→20:15)
[2019-07-28] MEDS: ALBUTEROL 2.5 MG/3 ML NEB SOL NEB SCH ×4 (02:00→20:15)
[2019-07-28] MEDS: HYDROCODONE/APAP 10/325 TAB PO PRN ×3 (04:12→12:14)
[2019-07-28 06:50] LABS: Protime INR 2.83
[2019-07-28] MEDS: LIDOCAINE 4% PATCH TOP SCH (07:21)
[2019-07-28] MEDS: RANITIDINE 150 MG TABLET PO SCH (07:43)
[2019-07-28] MEDS: levETIRAcetam 500 MG TAB PO SCH ×2 (07:43→19:09)
[2019-07-28] MEDS: TRAMADOL HCL 50 MG TAB PO PRN (07:43)
[2019-07-28] MEDS: CYANOCOBALAMIN 1,000 MCG TAB PO SCH (07:44)
[2019-07-28] MEDS: CA ACETATE 667 MG CAP PO SCH ×3 (07:44→17:29)
[2019-07-28] MEDS: DULOXETINE 20 MG CAP PO SCH (07:44)
[2019-07-28] MEDS: LORATADINE 10 MG TAB PO SCH (07:44)
[2019-07-28] MEDS: PROMOD 30 ML DOSE PO SCH ×2 (07:45→19:09)
[2019-07-28] MEDS: METOPROLOL XL 50 MG TAB PO SCH ×2 (07:45→19:07)
[2019-07-28] MEDS: [UNRECOGNIZED DRUG - OTHER] PO SCH (07:46)
[2019-07-28] MEDS: ULORIC 80 MG PO SCH (07:47)
[2019-07-28] MEDS: RENA VITE PO SCH (07:47)
[2019-07-28] MEDS: LYSINE 500 MG PO SCH (07:47)
[2019-07-28] MEDS ORDERED: GABAPENTIN 300 MG CAP PO SCH (08:00)
--- NOTE | 2019-07-28 10:54 | FAST ---
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 Gamal Lafleur M.D. ADMISSION DIAGNOSIS: - Debility 16 - Debility (16) ESRD. EATING: EATING - STEP 1: Does the patient complete the activity by him/herself with no assistance (physical, verbal/nonverbal cueing, setup/clean-up)? No. EATING - STEP 2: Does the patient need only setup/clean-up assistance from one helper? No. EATING - STEP 3: Does the patient need only verbal/nonverbal cueing or touching/steadying/contact guard assistance fro m one helper? Yes. 1. [id number] ADMISSION PERFORMANCE: Supervision or touching assistance CODE: 04 ORAL HYGIENE: ORAL HYGIENE - STEP 1: Does the patient complete the activity by him/herself with no assistance (physical, verbal/nonverbal cueing, setup/clean-up)? No. ORAL HYGIENE - STEP 2: Does the patient need only setup/clean-up assistance from one helper? No. ORAL HYGIENE - STEP 3: Does the patient need only verbal/nonverbal cueing or touching/steadying/contact guard assistance fro m one helper? Yes. 1. [id number] ADMISSION PERFORMANCE: Supervision or touching assistance CODE: 04 TOILETING HYGIENE: TOILETING HYGIENE - STEP 1: Does the patient complete the activity by him/herself with no assistance (physical, verbal/nonverbal cueing, setup/clean-up)? No. TOILETING HYGIENE - STEP 2: Does the patient need only setup/clean-up assistance from one helper? No. TOILETING HYGIENE - STEP 3: Does the patient need only verbal/nonverbal cueing or touching/steadying/contact guard assistance fro m one helper? No. TOILETING HYGIENE - STEP 4: Does the patient need physical assistance - for example lifting or trunk support from one helper - wi th the helper providing less than half of the effort? Yes. 1. [id number] ADMISSION PERFORMANCE: Partial/moderate assistance CODE: 03 BATHING: Not assessed/no information CODE: - DRESSING - UPPER BODY: Not assessed/no information CODE: - DRESSING - LOWER BODY: Not assessed/no information CODE: - PUTTING ON/TAKING OFF FOOTWEAR: Not assessed/no information CODE: - ROLL LEFT AND RIGHT: Not assessed/no information CODE: - SIT TO LYING: Not assessed/no information CODE: - LYING TO SITTING: LYING TO SITTING ON SIDE OF BED - STEP 1: Does the patient complete the activity by him/herself with no assistance (physical, verbal/nonverbal cueing, setup/clean-up)? No. LYING TO SITTING ON SIDE OF BED - STEP 2: Does the patient need only setup/clean-up assistance from one helper? No. LYING TO SITTING ON SIDE OF BED - STEP 3: Does the patient need only verbal/nonverbal cueing or touching/steadying/contact guard assistance fro m one helper? No. LYING TO SITTING ON SIDE OF BED - STEP 4: Does the patient need physical assistance - for example lifting or trunk support from one helper - wi th the helper providing less than half of the effort? No. LYING TO SITTING ON SIDE OF BED - STEP 5: Does the patient need physical assistance - for example lifting or trunk support from one helper - wi th the helper providing more than half of the effort? Yes. 1. [id number] ADMISSION PERFORMANCE: Substantial/maximal assistance CODE: 02 SIT TO STAND: Not assessed/no information CODE: - TRANSFERS: BED, CHAIR: CHAIR/[id number] TRANSFER - STEP 1: Does the patient complete the activity by him/herself with no assistance (physical, verbal/nonverbal cueing, setup/clean-up)? No. CHAIR/[id number] TRANSFER - STEP 2: Does the patient need only setup/clean-up assistance from one helper? No. CHAIR/[id number] TRANSFER - STEP 3: Does the patient need only verbal/nonverbal cueing or touching/steadying/contact guard assistance fro m one helper? No. CHAIR/[id number] TRANSFER - STEP 4: Does the patient need physical assistance - for example lifting or trunk support from one helper - wi th the helper providing less than half of the effort? No. CHAIR/[id number] TRANSFER - STEP 5: Does the patient need physical assistance - for example lifting or trunk support from one helper - wi th the helper providing more than half of the effort? Yes. 1. [id number] ADMISSION PERFORMANCE: Substantial/maximal assistance CODE: 02 TRANSFER TOILET: Not assessed/no information CODE: - TRANSFERS: CAR: Not assessed/no information CODE: - WALK 10 FEET: Not assessed/no information CODE: - 1 STEP (CURB): Not assessed/no information CODE: - PICKING UP OBJECT: Not assessed/no information CODE: - DOES THE PATIENT USE A WHEELCHAIR/SCOOTER? CODE: EXPR WHEEL 50 FEET WITH TWO TURNS: Not assessed/no information CODE: - INDICATE THE TYPE OF WHEELCHAIR/SCOOTER USED: CODE: EXPR WHEEL 150 FEET: Not assessed/no information CODE: - INDICATE THE TYPE OF WHEELCHAIR/SCOOTER USED: CODE: EXPR BLADDER AND BOWEL: H350. BLADDER CONTINENCE (3-DAY ASSESSMENT PERIOD): No urine output (e.g., renal failure) CODE: 5 H400. BOWEL CONTINENCE (3-DAY ASSESSMENT PERIOD): Always continent CODE: 0 SIGNATURE PANEL: The following modified sections: 1. [id number] Admission Performance, 1. HS2493A Admission Performance, 1. [id number] Admission Performance, 1. [id number] Admission Performance, 1. [id number] Admission Performance, 1. [id number] Admission Performance, 1. [id number] Admission Performance, Code, H400. Bowel Continence (3- day assessment period), H350. Bladder Continence (3-day assessment period) were [electronically] sign ed by Josiah Mojica on SatJul 28 2019 10:53:01 GMT-0600 (Central Standard Time)
[2019-07-28] MEDS: WARFARIN SODIUM 2 MG TAB PO SCH (17:29)
[2019-07-28] MEDS: WARFARIN SODIUM 2.5 MG TAB PO SCH (17:29)
[2019-07-28] MEDS: ATORVASTATIN 40 MG TAB PO SCH (19:09)
[2019-07-28] MEDS: ACETAMINOPHEN 500 MG TAB PO PRN (19:11)
--- NOTE | 2019-07-28 23:09 | P.PN ---
Date of Service: 07/28/19 Vital Signs Temp Pulse Resp BP Pulse Ox 96.7 F L 68 16 104/51 L 97 07/28/19 19:27 07/28/19 19:27 07/28/19 19:27 07/28/19 19:27 07/28/19 19:27 Medications Acetaminophen (Tylenol -Extra Strength) 500 mg PO Q4H PRN PRN Reason: Pain scale 2-4 (Mild) Stop: 08/21/19 10:31 Last Admin: 07/28/19 19:11 Dose: 500 mg Hydrocodone Bitart/Acetaminophen ([place] 5/325) 1 tab PO Q4H PRN PRN Reason: Pain scale 5-7 (Moderate) Stop: 08/27/19 18:02 Albuterol Sulfate (Proventil 0.083% Neb Soln) 2.5 mg NEB [id number] [facility] Stop: 08/20/19 20:01 Last Admin: 07/28/19 20:15 Dose: 2.5 mg Atorvastatin Calcium (Lipitor) 40 mg PO BEDTIME [facility] Stop: 08/20/19 21:01 Last Admin: 07/28/19 19:09 Dose: 40 mg Calcium Acetate (Phoslo) 2,001 mg PO TIDWM [facility] Stop: 08/21/19 08:01 Last Admin: 07/28/19 17:29 Dose: 2,001 mg Cyanocobalamin (Vitamin B-12) 2,000 mcg PO DAILY [facility] Stop: 08/21/19 08:01 Last Admin: 07/28/19 07:44 Dose: 2,000 mcg Doxazosin Mesylate (Cardura) 2 mg PO BID PRN PRN Reason: Titrate to SBP (MUST DEFINE) Stop: 08/20/19 20:01 Duloxetine HCl (Cymbalta Delayed Release Pellets) 20 mg PO DAILY [facility] Stop: 08/27/19 08:01 Last Admin: 07/28/19 07:44 Dose: 20 mg Gabapentin (Neurontin) 100 mg PO DAILY [facility] Stop: 08/28/19 08:01 Guaifenesin (Robitussin 100mg/5ml) 100 mg PO QID PRN PRN Reason: COUGH Stop: 08/25/19 10:27 Heparin Sodium (Porcine) (Heparin 1,000 Units/Ml) 6,000 unit IV EVERY HD PRN PRN Reason: FLUSH AFTER EACH USE Stop: 08/21/19 11:39 Heparin Sodium (Porcine) (Heparin 1,000 Units/Ml) 2,000 unit IV EVERY HD [facility] Stop: 08/01/19 20:01 Home Med (Home Med) 0 ea PO BEDTIME PRN PRN PRN Reason: INSOMNIA Stop: 08/20/19 19:01 Home Med (Home Med) 0 ea PO Cristina@0800 [facility] Stop: 08/25/19 08:01 Last Admin: 07/26/19 08:11 Dose: 1 ea Home Med (Home Med) 0 ea PO DAILY [facility] Stop: 08/21/19 08:01 Last Admin: 07/28/19 07:46 Dose: 1 ea Home Med (Home Med) 0 ea PO DAILY [facility] Stop: 08/21/19 08:01 Last Admin: 07/28/19 07:47 Dose: 1 ea Home Med (Home Med) 0 ea PO DAILY [facility] Stop: 08/21/19 08:01 Last Admin: 07/28/19 07:47 Dose: 1 ea Home Med (Home Med) 0 ea PO DAILY [facility] Stop: 08/21/19 08:01 Last Admin: 07/28/19 07:47 Dose: 1 ea Albumin Human (Albumin 25%) 50 mls @ 100 mls/hr IV EVERY HD [facility] Stop: 08/21/19 12:01 Ipratropium [place] (Atrovent Neb) 0.5 mg NEB [id number] [facility] Stop: 08/20/19 20:01 Last Admin: 07/28/19 20:15 Dose: 0.5 mg Levetiracetam (Keppra Tab) 500 mg PO BID [facility] Stop: 08/20/19 20:01 Last Admin: 07/28/19 19:09 Dose: 500 mg Lidocaine (Aspercreme 4% Patch) 2 patch TOP DAILY [facility] Stop: 08/22/19 08:01 Last Admin: 07/28/19 07:21 Dose: 2 patch Loratadine (Claritin) 10 mg PO DAILY [facility] Stop: 08/21/19 08:01 Last Admin: 07/28/19 07:44 Dose: 10 mg Mannitol (Mannitol 12.5 Gm/50 Ml Vial) 12.5 gm IV EVERY HD PRN PRN Reason: Titrate to SBP (MUST DEFINE) Stop: 08/21/19 11:39 Metoprolol Succinate (Toprol Xl) 50 mg PO BID [facility] Stop: 08/20/19 20:01 Last Admin: 07/28/19 19:07 Dose: Not Given Nutritional Formula (Promod Liquid Protein) 30 ml PO BID [facility] Stop: 08/23/19 08:01 Last Admin: 07/28/19 19:09 Dose: 30 ml Polyethylene Glycol (Glycolax) 17 gm PO DAILY PRN PRN Reason: CONSTIPATION Stop: 08/20/19 18:44 Ranitidine HCl (Zantac) 150 mg PO DAILY [facility] Stop: 08/21/19 08:01 Last Admin: 07/28/19 07:43 Dose: 150 mg Triamcinolone Acetonide (Kenalog 0.1% Cream) 1 appl TOP BID PRN PRN Reason: RASH Stop: 08/20/19 19:05 Warfarin Sodium (Coumadin) 2.5 mg PO DAILY 5 PM [facility] Stop: 08/21/19 17:01 Last Admin: 07/28/19 17:29 Dose: 2.5 mg Warfarin Sodium (Coumadin) 2 mg PO DAILY 5 PM [facility] Stop: 08/21/19 17:01 Last Admin: 07/28/19 17:29 Dose: 2 mg Lab Results (last 24 hrs) 07/28/19 05:59: PT 32.1 H, INR 2.83 Assessment/ Plan: Nephrology Doing well. CPS stable without CP or SOB. No acute events overnight. Vitals, medications, blood work and imaging reviewed in the chart. General: In no apparent distress, Oriented x3, Cooperative HEENT: Atraumatic, Mucous membr. moist/pink Neck: Supple Respiratory: Clear to auscultation bilaterally, Normal air movement Cardiovascular: Regular rate/rhythm, No rubs, Edema Gastrointestinal: Soft and benign, Non-distended Musculoskeletal: No clubbing, No contractures Integumentary: No rashes, No significant lesion, No cyanosis Neurological: Normal speech Laboratory Data (last 24 hrs) 07/23/19 06:17: Sodium 137, Potassium 4.2, BUN 48 H D, Creatinine 7.32 H* D, Glucose 94, Magnesium 2.4 07/23/19 06:17: WBC 10.2, Hgb 11.0 L, Hct 32.2 L, Plt Count 229 07/23/19 06:17: PT 21.6 H, INR 1.88 Imagings Data: EXAM DESCRIPTION: Sera Single View07/16/2019 4:25 pm CLINICAL HISTORY: Chest pain COMPARISON: July 15 FINDINGS: Old left rib fractures Lungs appear clear of acute infiltrate The heart is mildly enlarged IMPRESSION: No acute abnormality displayed Conclusions/Impression: A/ ESRD on HD. Hyperkalemia. Diastolic CHF, chronic. HTN with CKD/ CHF. Anemia in CKD. PRASANNA/ Secondary HyperPTH. AMS with weakness of unclear etiology. TIA? P/ Continue current POC and Medications. Next HD tomorrow. Encourage nutrition. PT as tolerated. AM labs. Daily weight. No NSAIDs.
[2019-07-29] MEDS: IPRATROPIUM BROM 0.5MG/2.5ML NEB SCH ×4 (01:50→20:56)
[2019-07-29] MEDS: ALBUTEROL 2.5 MG/3 ML NEB SOL NEB SCH ×4 (01:50→20:56)
[2019-07-29 05:57] LABS: Protime INR 3.04
[2019-07-29 06:00] LABS: Absolute Lymphocytes (CBC) 1.4 K/uL (0.7-4.9); Basophils % 0.4 % (0-1.3); Hematocrit 30.8 % (39.6-49.0); Lymphocytes % 11.3 % (15.3-44.8); MPV 8.4 fL (7.6-11.3); RBC Red Blood Cell Count 3.23 M/uL (4.33-5.43)
[2019-07-29 06:26] LABS: Albumin 2.9 g/dL (3.4-5.0); Bilirubin Total 0.4 mg/dL (0.2-1.0); Magnesium 2.4 mg/dL (1.8-2.4); Phosphorus 8.6 mg/dL (2.5-4.9); Potassium 5.4 mmol/L (3.5-5.1); Protein, Total 6.7 g/dL (6.4-8.2); Uric Acid 1.4 mg/dL (3.5-7.2)
[2019-07-29] MEDS: METOPROLOL XL 50 MG TAB PO SCH ×2 (08:00→20:00)
[2019-07-29] MEDS: LIDOCAINE 4% PATCH TOP SCH (08:17)
[2019-07-29] MEDS: CA ACETATE 667 MG CAP PO SCH ×3 (08:17→17:29)
[2019-07-29] MEDS: levETIRAcetam 500 MG TAB PO SCH ×2 (08:18→20:01)
[2019-07-29] MEDS: CYANOCOBALAMIN 1,000 MCG TAB PO SCH (08:18)
[2019-07-29] MEDS: DULOXETINE 20 MG CAP PO SCH (08:18)
[2019-07-29] MEDS: RANITIDINE 150 MG TABLET PO SCH (08:18)
[2019-07-29] MEDS: GABAPENTIN 100 MG CAP PO SCH (08:19)
[2019-07-29] MEDS: HYDROCODONE/APAP 5/325 MG TAB PO PRN ×2 (08:19→13:01)
[2019-07-29] MEDS: LORATADINE 10 MG TAB PO SCH (08:20)
[2019-07-29] MEDS: LYSINE 500 MG PO SCH (08:22)
[2019-07-29] MEDS: [UNRECOGNIZED DRUG - OTHER] PO SCH (08:22)
[2019-07-29] MEDS: RENA VITE PO SCH (08:23)
[2019-07-29] MEDS: PROMOD 30 ML DOSE PO SCH ×2 (08:24→20:02)
[2019-07-29] MEDS: ULORIC 80 MG PO SCH (08:24)
--- NOTE | 2019-07-29 14:23 | RAD REPORT ---
EXAM DESCRIPTION: MRI - Hip Left Wo Cont - 07/29/2019 1:46 pm CLINICAL HISTORY: Left hip pain status post fall with COMPARISON: June 2019 x-ray TECHNIQUE: Axial, sagittal, and coronal magnetic images of the left hip obtained FINDINGS: A compression screw and intramedullary loi has been placed into the left femur. Artifact f rom the hardware does obscure adjacent detail somewhat. A nondisplaced fracture involves the greater trochanter, and intertrochanter and lesser trochanter of left femur. There is not significant amount of surrounding edema. No dislocation. No significant abnormality surrounding musculature IMPRESSION: Nondisplaced fracture involves the greater trochanter, intertrochanter and lesser trocha nter of left femur. Given the lack of significant surrounding edema this probably is the site of orig inal fracture in which the orthopedic hardware affixes rather than an acute fracture. However this sh ould be compared to prior imaging to confirm this. It does not appear that the surgery and imaging after the previous fracture was performed at this [facility].
[2019-07-29] MEDS: WARFARIN SODIUM 2 MG TAB PO SCH (16:44)
[2019-07-29] MEDS: WARFARIN SODIUM 2.5 MG TAB PO SCH (16:44)
--- NOTE | 2019-07-29 18:15 | R.PN ---
ENCOUNTER DATE AND TIME: 07/29/2019 18:07 (MANAGER OF PROGRAM) NAME CHELA RUBALCAVA DATE OF : 1935 DATE OF ADMISSION: 07/21/2019 17:57 (MANAGER OF PROGRAM) ESRDCHIEF COMPLAINT: Debility and ESRD SUBJECTIVE: Pt denied any Shortness of Breath. Pt denied any depression. He denies pain. He performed therapeutic exercises with minimum assistance. He required maximum alee tance tor functional transfers. WBC 12.8, neutrophils 75%. Will repeat in the AM. INR 3.04, will hold coumadin today. Creatine is 9.3 3, and BUN is 77. Phosphous increased to 8.6, procalcitonin elevated to 1.45 but lactic acid is james l at 1.0. He will have hemodialysis later today. He has left hip pain following hip surgery 6 months ago. MRI of the left hip shows chronic post surgi agus changes with orthopedic hardware in place. VITAL SIGNS Temperature: 97 F SBP/DBP: 103/53 Pulse: 79 Resp: 16 MEDICATION ALLERGIES: Codeine Morphine ENVIRONMENTAL ALLERGIES: None Known - Substance Allergies None Known - Other Allergies Adhesive Tape NURSING: - Shower allowing shower - Lab Results blood Sugar Check ACHS ACTIVITIES OOB only with supervision THERAPIES: - Dietary and Nutrition Adequate Nutrition. Nutritional Education. Nutritional Supplements. PHYSICAL EXAM - Gen Alert and awake Lying in bed No apparent distress Oriented to: person, time, and place - Skin No skin breakdown. Normacephalic - Eyes No abnormalities - ENMT No abnormalities - Neck No abnormalities - CVS RRR - Chest Mildly decreased breath sounds bilaterally. - Abd Soft - GI + bowel sounds Deferred - Little urine production. On hemodialysis three times weekly. - Ext Mild bilateral lower extremity edema. - MSK 4+/5 weakness in both lower extremities. - Neuro No focal deficits - Psych No abnormalities ASSESSMENT: Pt. is a 84 yo Right-handed white male.On 07/16/2019 he was admitted to [facility] with diagnosis ESRD.His impairment category is Debility 16 - Debility (16).Pre-morbidly, Pt. was independent/mod-I in Locomotion, Safety Awareness, Balance, Social Cognition, Transfers Control, Sph incter Control, Self-Care, Communication, and Endurance; and he had good Locomotion, Safety Awareness , Balance, Social Cognition, Transfers Control, Sphincter Control, Communication, Self-Care, and Endu junior.Currently, he has deficits of Locomotion, Safety Awareness, Social Cognition, Balance, Transfer s Control, Sphincter Control, Self-Care, Communication, and Endurance.Pt. is now referred to [facility] for acute in-patient rehabilitation in order to maximize patient's function al independence in activities of daily living, strength, ROM, and mobility.- Rehab Goal Patient has realistic goal of being discharged at assistance level 6-Gisselle to reside at Home with Fam connie/Relatives. MDM/PLAN: - Physical Therapy Gait dysfunction - to improve, our physical therapists will perform initial evaluation of pt's statu s upon admission and devise an individualized program for Gait Training, and Wheel Chair mobility Inability to transfer - to improve, our physical therapists will perform initial evaluation of pt's status upon admission and devise an individualized program for Bed mobility Need for home safety evaluation - to improve, our physical therapists will perform initial evaluatio n of pt's status upon admission and devise an individualized program for Home Evaluation Need in caregiver upon discharge - to improve, our physical therapists will perform initial evaluati on of pt's status upon admission and devise an individualized program for Caregiver Training New precaution - to improve, our physical therapists will perform initial evaluation of pt's status upon admission and devise an individualized program for Patient precaution education Edema - to improve, our physical therapists will perform initial evaluation of pt's status upon admi ssion and devise an individualized program for Elevation Training, and Lymphedema Therapy Poor balance - to improve, our physical therapists will perform initial evaluation of pt's status up on admission and devise an individualized program for Balance Training Poor endurance - to improve, our physical therapists will perform initial evaluation of pt's status upon admission and devise an individualized program for Endurance Training Weakness - to improve, our physical therapists will perform initial evaluation of pt's status upon a dmission and devise an individualized program for Aquatic Therapy, Neuromuscular Reeducation, and Str engthening Achieving independence - to improve, our physical therapists will perform initial evaluation of pt's status upon admission and devise an individualized program for Community Reintegration Activities - Occupational Therapy ADL deficits - to improve, our occupation therapists will perform initial evaluation of pt's status upon admission and devise an individualized program for Bathing, Bed mobility, Community Reintegratio n, Cooking, Dressing, Eating, Fine Motor Skills, Grooming, Homemaking, Kitchen Mobility, Laundry, Pat ient Education, Safety Awareness, Splinting - Positioning, Transfers(Toilet, Tub, Shower), and Wheel Chair Management Cognitive deficits - to improve, our occupation therapists will perform initial evaluation of pt's s tatus upon admission and devise an individualized program for Cognition - orientation Need for pharmacy care coordinator - to improve, our occupation therapists will perform initial evaluation of pt's status upon admission and devise an individualized program for Caregiver Training Weakness - to improve, our occupation therapists will perform initial evaluation of pt's status upon admission and devise an individualized program for Aquatic Therapy, Balance, Endurance, UE ROM, and UE strengthening - Other See attached MAR (Medication Administration Record) - Diet Type Continue Regular - Diet - Liquid Texture Continue Regular - Tube Feed Continue N/A - Lab Results blood Sugar Check ACHS - Diet - Solid Texture Continue Regular - Shower allowing shower FUNCTIONAL STATUS: UPDATED AT WEEKLY TEAM CONFERENCE - Bladder Same accident frequency: 7-Ind - No accidents in the past 7 days - Bowel Same accident frequency: 7-Ind - No accidents in the past 7 days - Walking Same score based on distance walked: 1(<=50ft) - Wheelchair Same score based on distance traveled: 0(N/A) FUNCTIONAL STATUS: - Self-Care A. Eating sup B. Grooming Gisselle C. Bathing maxA D. Dressing - Upper modA E. Dressing - Lower maxA F. Toileting maxA - Sphincter Control G. Bladder control Dep H. Bowel control Levi - Transfers Control I. Bed/Chair/Wheelchair maxA J. Toilet maxA K. Tub/Shower maxA - Locomotion L. Walk/Wheelchair (B) modA M. Stairs ADNO - Communication N. Comprehension (B) Gisselle O. Expression (B) Gisselle - Social Cognition P. Social Interaction Ind Q. Problem Solving Gisselle R. Memory Gisselle - Endurance Good - Balance Good - Safety Awareness Good QI SCORES: - Self-Care A. Eating 04-Supervision or touching assistance B. Oral hygiene 04-Supervision or touching assistance C. Toileting hygiene 03-Partial/moderate assistance E. Shower/bathe self 03-Partial/moderate assistance F. Upper body dressing 03-Partial/moderate assistance G. Lower body dressing 02-Substantial/maximal assistance H. Putting on/taking off footwear 02-Substantial/maximal assistance - Mobility A. Roll left and right 03-Partial/moderate assistance B. Sit to lying 02-Substantial/maximal assistance C. Lying to sitting on side of bed 02-Substantial/maximal assistance D. Sit to stand 03-Partial/moderate assistance E. Chair/zib-dy-afbai transfer 03-Partial/moderate assistance F. Toilet transfer 03-Partial/moderate assistance G. Car transfer 88-Not attempted due to medical condition or safety concerns I. Walk 10 feet 02-Substantial/maximal assistance J. Walk 50 feet with two turns 88-Not attempted due to medical condition or safety concerns K. Walk 150 feet 88-Not attempted due to medical condition or safety concerns L. Walking 10 feet on uneven surfaces 88-Not attempted due to medical condition or safety concerns M. 1 step (curb) 88-Not attempted due to medical condition or safety concerns N. 4 steps 88-Not attempted due to medical condition or safety concerns O. 12 steps 88-Not attempted due to medical condition or safety concerns P. Picking up object 88-Not attempted due to medical condition or safety concerns R. Wheel 50 feet with two turns 88-Not attempted due to medical condition or safety concerns S. Wheel 150 feet 88-Not attempted due to medical condition or safety concerns - Bladder and Bowel Bladder continence 5-No urine output Bowel continence 0-Always continent - Endurance Poor - Balance Poor - Safety Awareness Fair CURRENT FUNC. DEFICITS: Self-Care, Mobility, Endurance, Balance, and Safety Awareness SIGNATURE PANEL: (MANAGER OF PROGRAM)
--- NOTE | 2019-07-29 19:07 | RAD REPORT ---
EXAM DESCRIPTION: RAD - Chest Single View - 07/29/2019 6:31 pm CLINICAL HISTORY: increase coughing Chest pain. COMPARISON: Chest Single View dated 07/16/2019; Chest Single View dated 07/15/2019; Chest Single Vie w dated 05/23/2019; Chest Single View dated 05/22/2019 FINDINGS: Portable technique limits examination quality. The lungs are grossly clear. The heart is normal in size. No displaced fractures. IMPRESSION: No acute intrathoracic process suspected.
[2019-07-29] MEDS: ATORVASTATIN 40 MG TAB PO SCH (20:01)
[2019-07-30] MEDS: ALBUTEROL 2.5 MG/3 ML NEB SOL NEB SCH ×5 (01:47→19:25)
[2019-07-30] MEDS: IPRATROPIUM BROM 0.5MG/2.5ML NEB SCH ×5 (01:47→19:25)
[2019-07-30 05:57] LABS: Absolute Lymphocytes (CBC) 1.2 K/uL (0.7-4.9); Basophils % 0.5 % (0-1.3); Hematocrit 27.9 % (39.6-49.0); Lymphocytes % 11.9 % (15.3-44.8); MPV 8.3 fL (7.6-11.3); RBC Red Blood Cell Count 2.92 M/uL (4.33-5.43)
[2019-07-30 06:14] LABS: Protime INR 3.09
[2019-07-30 06:28] LABS: Potassium 5.1 mmol/L (3.5-5.1)
[2019-07-30] MEDS: PROMOD 30 ML DOSE PO SCH ×2 (08:00→20:56)
[2019-07-30] MEDS: RENA VITE PO SCH (08:00)
[2019-07-30] MEDS: LORATADINE 10 MG TAB PO SCH (08:00)
[2019-07-30] MEDS: LYSINE 500 MG PO SCH (08:00)
[2019-07-30] MEDS: CA ACETATE 667 MG CAP PO SCH ×3 (08:00→16:58)
[2019-07-30] MEDS: [UNRECOGNIZED DRUG - OTHER] PO SCH (08:00)
[2019-07-30] MEDS: levETIRAcetam 500 MG TAB PO SCH ×2 (08:00→20:55)
[2019-07-30] MEDS: CYANOCOBALAMIN 1,000 MCG TAB PO SCH (08:00)
[2019-07-30] MEDS: DULOXETINE 20 MG CAP PO SCH (08:00)
[2019-07-30] MEDS: GABAPENTIN 100 MG CAP PO SCH (08:00)
[2019-07-30] MEDS: RANITIDINE 150 MG TABLET PO SCH (08:00)
[2019-07-30] MEDS: ULORIC 80 MG PO SCH (08:00)
[2019-07-30] MEDS: HYDROCODONE/APAP 5/325 MG TAB PO PRN ×2 (08:25→10:24)
[2019-07-30] MEDS: METOPROLOL XL 50 MG TAB PO SCH ×2 (10:23→20:00)
[2019-07-30] MEDS: LIDOCAINE 4% PATCH TOP SCH (10:58)
--- NOTE | 2019-07-30 14:31 | FAST ---
ENCOUNTER DATE AND TIME: 07/30/2019 08:00 (BI SOLUTIONS ARCHITECT) NAME CHELA RUBALCAVA DATE OF : 1935 DATE OF ADMISSION: 07/21/2019 17:57 (BI SOLUTIONS ARCHITECT) PHONE: AGE: 84 N# [id number] GENDER: Male ENCOUNTER PHYSICIAN: Dr. Gamal Lafleur M.D. ADMISSION DIAGNOSIS: - Debility 16 - Debility (16) ESRD. EATING: Not assessed/no information CODE: - ORAL HYGIENE: ORAL HYGIENE - STEP 1: Does the patient complete the activity by him/herself with no assistance (physical, verbal/nonverbal cueing, setup/clean-up)? Yes. 1. [id number] ADMISSION PERFORMANCE: Independent CODE: 06 TOILETING HYGIENE: Not assessed/no information CODE: - BATHING: SHOWER/BATHE SELF - STEP 1: Does the patient complete the activity by him/herself with no assistance (physical, verbal/nonverbal cueing, setup/clean-up)? No. SHOWER/BATHE SELF - STEP 2: Does the patient need only setup/clean-up assistance from one helper? No. SHOWER/BATHE SELF - STEP 3: Does the patient need only verbal/nonverbal cueing or touching/steadying/contact guard assistance fro m one helper? Yes. 1. [id number] ADMISSION PERFORMANCE: Supervision or touching assistance CODE: 04 DRESSING - UPPER BODY: DRESSING - UPPER BODY - STEP 1: Does the patient complete the activity by him/herself with no assistance (physical, verbal/nonverbal cueing, setup/clean-up)? No. DRESSING - UPPER BODY - STEP 2: Does the patient need only setup/clean-up assistance from one helper? Yes. 1. [id number] ADMISSION PERFORMANCE: Setup or clean-up assistance CODE: 05 DRESSING - LOWER BODY: DRESSING - LOWER BODY - STEP 1: Does the patient complete the activity by him/herself with no assistance (physical, verbal/nonverbal cueing, setup/clean-up)? No. DRESSING - LOWER BODY - STEP 2: Does the patient need only setup/clean-up assistance from one helper? No. DRESSING - LOWER BODY - STEP 3: Does the patient need only verbal/nonverbal cueing or touching/steadying/contact guard assistance fro m one helper? No. DRESSING - LOWER BODY - STEP 4: Does the patient need physical assistance - for example lifting or trunk support from one helper - wi th the helper providing less than half of the effort? Yes. 1. [id number] ADMISSION PERFORMANCE: Partial/moderate assistance CODE: 03 PUTTING ON/TAKING OFF FOOTWEAR: FOOTWEAR - STEP 1: Does the patient complete the activity by him/herself with no assistance (physical, verbal/nonverbal cueing, setup/clean-up)? No. FOOTWEAR - STEP 2: Does the patient need only setup/clean-up assistance from one helper? No. FOOTWEAR - STEP 3: Does the patient need only verbal/nonverbal cueing or touching/steadying/contact guard assistance fro m one helper? No. FOOTWEAR - STEP 4: Does the patient need physical assistance - for example lifting or trunk support from one helper - wi th the helper providing less than half of the effort? No. FOOTWEAR - STEP 5: Does the patient need physical assistance - for example lifting or trunk support from one helper - wi th the helper providing more than half of the effort? Yes. 1. [id number] ADMISSION PERFORMANCE: Substantial/maximal assistance CODE: 02 DOES THE PATIENT USE A WHEELCHAIR/SCOOTER? CODE: EXPR INDICATE THE TYPE OF WHEELCHAIR/SCOOTER USED: CODE: EXPR INDICATE THE TYPE OF WHEELCHAIR/SCOOTER USED: CODE: EXPR BLADDER AND BOWEL: CODE: EXPR CODE: EXPR SIGNATURE PANEL: The following modified sections: 1. [id number] Admission Performance, 1. [id number] Admission Performance, 1. [id number] Admission Performance, 1. [id number] Admission Performance, 1. [id number] Admission Performance were [electronically] signed by EDITH Cox on SatJul 30 2019 14:30:30 GMT-0600 (Central Standard Time)
[2019-07-30] MEDS: WARFARIN SODIUM 2 MG TAB PO SCH (15:44)
[2019-07-30] MEDS: WARFARIN SODIUM 2.5 MG TAB PO SCH (15:44)
--- NOTE | 2019-07-30 17:05 | R.PN ---
ENCOUNTER DATE AND TIME: 07/30/2019 16:57 (RESOURCE COORDINATOR) NAME CHELA RUBALCAVA DATE OF : 1935 DATE OF ADMISSION: 07/21/2019 17:57 (RESOURCE COORDINATOR) ESRDCHIEF COMPLAINT: Debility and ESRD SUBJECTIVE: Pt denied any Shortness of Breath. Pt denied any depression. He denies pain. He performed therapeutic exercises with minimum assistance. He required maximum alee tance tor functional transfers. WBC 12.8, neutrophils 75%. Will repeat in the AM. INR 3.04, will hold coumadin today. Creatine is 9.3 3, and BUN is 77. Phosphous increased to 8.6, procalcitonin elevated to 1.45 but lactic acid is james l at 1.0. He will have hemodialysis later today. He has left hip pain following hip surgery 6 months ago. MRI of the left hip shows chronic post surgi agus changes with orthopedic hardware in place. Examination of his left thigh where he impacted after falling reveals dysesthesia in the left lateral femoral cutaneous distribution. This finding is consistent with left meralgia paresthetica. VITAL SIGNS Temperature: 97 F SBP/DBP: 154/57 Pulse: 80 Resp: 15 MEDICATION ALLERGIES: Codeine Morphine ENVIRONMENTAL ALLERGIES: None Known - Substance Allergies None Known - Other Allergies Adhesive Tape NURSING: - Shower allowing shower - Lab Results blood Sugar Check ACHS ACTIVITIES OOB only with supervision THERAPIES: - Dietary and Nutrition Adequate Nutrition. Nutritional Education. Nutritional Supplements. PHYSICAL EXAM - Gen Alert and awake Lying in bed No apparent distress Oriented to: person, time, and place - Skin No skin breakdown. Normacephalic - Eyes No abnormalities - ENMT No abnormalities - Neck No abnormalities - CVS RRR - Chest Mildly decreased breath sounds bilaterally. - Abd Soft - GI + bowel sounds Deferred - Little urine production. On hemodialysis three times weekly. - Ext Mild bilateral lower extremity edema. - MSK 4+/5 weakness in both lower extremities. - Neuro No focal deficits - Psych No abnormalities ASSESSMENT: Pt. is a 84 yo Right-handed white male.On 07/16/2019 he was admitted to [facility] with diagnosis ESRD.His impairment category is Debility 16 - Debility (16).Pre-morbidly, Pt. was independent/mod-I in Locomotion, Safety Awareness, Balance, Social Cognition, Transfers Control, Sph incter Control, Self-Care, Communication, and Endurance; and he had good Locomotion, Safety Awareness , Balance, Social Cognition, Transfers Control, Sphincter Control, Communication, Self-Care, and Endu junior.Currently, he has deficits of Locomotion, Safety Awareness, Social Cognition, Balance, Transfer s Control, Sphincter Control, Self-Care, Communication, and Endurance.Pt. is now referred to [facility] for acute in-patient rehabilitation in order to maximize patient's function al independence in activities of daily living, strength, ROM, and mobility.- Rehab Goal Patient has realistic goal of being discharged at assistance level 6-Gisselle to reside at Home with Fam connie/Relatives. MDM/PLAN: - Physical Therapy Gait dysfunction - to improve, our physical therapists will perform initial evaluation of pt's statu s upon admission and devise an individualized program for Gait Training, and Wheel Chair mobility Inability to transfer - to improve, our physical therapists will perform initial evaluation of pt's status upon admission and devise an individualized program for Bed mobility Need for home safety evaluation - to improve, our physical therapists will perform initial evaluatio n of pt's status upon admission and devise an individualized program for Home Evaluation Need in caregiver upon discharge - to improve, our physical therapists will perform initial evaluati on of pt's status upon admission and devise an individualized program for Caregiver Training New precaution - to improve, our physical therapists will perform initial evaluation of pt's status upon admission and devise an individualized program for Patient precaution education Edema - to improve, our physical therapists will perform initial evaluation of pt's status upon admi ssion and devise an individualized program for Elevation Training, and Lymphedema Therapy Poor balance - to improve, our physical therapists will perform initial evaluation of pt's status up on admission and devise an individualized program for Balance Training Poor endurance - to improve, our physical therapists will perform initial evaluation of pt's status upon admission and devise an individualized program for Endurance Training Weakness - to improve, our physical therapists will perform initial evaluation of pt's status upon a dmission and devise an individualized program for Aquatic Therapy, Neuromuscular Reeducation, and Str engthening Achieving independence - to improve, our physical therapists will perform initial evaluation of pt's status upon admission and devise an individualized program for Community Reintegration Activities - Occupational Therapy ADL deficits - to improve, our occupation therapists will perform initial evaluation of pt's status upon admission and devise an individualized program for Bathing, Bed mobility, Community Reintegratio n, Cooking, Dressing, Eating, Fine Motor Skills, Grooming, Homemaking, Kitchen Mobility, Laundry, Pat ient Education, Safety Awareness, Splinting - Positioning, Transfers(Toilet, Tub, Shower), and Wheel Chair Management Cognitive deficits - to improve, our occupation therapists will perform initial evaluation of pt's s tatus upon admission and devise an individualized program for Cognition - orientation Need for ambulatory care nurse - to improve, our occupation therapists will perform initial evaluation of pt's status upon admission and devise an individualized program for Caregiver Training Weakness - to improve, our occupation therapists will perform initial evaluation of pt's status upon admission and devise an individualized program for Aquatic Therapy, Balance, Endurance, UE ROM, and UE strengthening - Other See attached MAR (Medication Administration Record) - Diet Type Continue Regular - Diet - Liquid Texture Continue Regular - Tube Feed Continue N/A - Lab Results blood Sugar Check ACHS - Diet - Solid Texture Continue Regular - Shower allowing shower FUNCTIONAL STATUS: UPDATED AT WEEKLY TEAM CONFERENCE - Bladder Same accident frequency: 7-Ind - No accidents in the past 7 days - Bowel Same accident frequency: 7-Ind - No accidents in the past 7 days - Walking Same score based on distance walked: 1(<=50ft) - Wheelchair Same score based on distance traveled: 0(N/A) FUNCTIONAL STATUS: - Self-Care A. Eating sup B. Grooming Gisselle C. Bathing maxA D. Dressing - Upper modA E. Dressing - Lower maxA F. Toileting maxA - Sphincter Control G. Bladder control Dep H. Bowel control Levi - Transfers Control I. Bed/Chair/Wheelchair maxA J. Toilet maxA K. Tub/Shower maxA - Locomotion L. Walk/Wheelchair (B) modA M. Stairs ADNO - Communication N. Comprehension (B) Gisselle O. Expression (B) Gisselle - Social Cognition P. Social Interaction Ind Q. Problem Solving Gisselle R. Memory Gisselle - Endurance Good - Balance Good - Safety Awareness Good QI SCORES: - Self-Care A. Eating 04-Supervision or touching assistance B. Oral hygiene 04-Supervision or touching assistance C. Toileting hygiene 03-Partial/moderate assistance E. Shower/bathe self 03-Partial/moderate assistance F. Upper body dressing 03-Partial/moderate assistance G. Lower body dressing 02-Substantial/maximal assistance H. Putting on/taking off footwear 02-Substantial/maximal assistance - Mobility A. Roll left and right 03-Partial/moderate assistance B. Sit to lying 02-Substantial/maximal assistance C. Lying to sitting on side of bed 02-Substantial/maximal assistance D. Sit to stand 03-Partial/moderate assistance E. Chair/[id number]-[id number] transfer 03-Partial/moderate assistance F. Toilet transfer 03-Partial/moderate assistance G. Car transfer 88-Not attempted due to medical condition or safety concerns I. Walk 10 feet 02-Substantial/maximal assistance J. Walk 50 feet with two turns 88-Not attempted due to medical condition or safety concerns K. Walk 150 feet 88-Not attempted due to medical condition or safety concerns L. Walking 10 feet on uneven surfaces 88-Not attempted due to medical condition or safety concerns M. 1 step (curb) 88-Not attempted due to medical condition or safety concerns N. 4 steps 88-Not attempted due to medical condition or safety concerns O. 12 steps 88-Not attempted due to medical condition or safety concerns P. Picking up object 88-Not attempted due to medical condition or safety concerns R. Wheel 50 feet with two turns 88-Not attempted due to medical condition or safety concerns S. Wheel 150 feet 88-Not attempted due to medical condition or safety concerns - Bladder and Bowel Bladder continence 5-No urine output Bowel continence 0-Always continent - Endurance Poor - Balance Poor - Safety Awareness Fair CURRENT FUNC. DEFICITS: Self-Care, Mobility, Endurance, Balance, and Safety Awareness SIGNATURE PANEL: (RESOURCE COORDINATOR)
[2019-07-30] MEDS: ATORVASTATIN 40 MG TAB PO SCH (20:55)
--- NOTE | 2019-07-30 23:27 | P.PN ---
Date of Service: 07/30/19 Vital Signs Temp Pulse Resp BP Pulse Ox 97.4 F 71 14 100/51 L 95 07/30/19 18:45 07/30/19 20:00 07/30/19 18:45 07/30/19 20:00 07/30/19 18:45 Medications Acetaminophen (Tylenol -Extra Strength) 500 mg PO Q4H PRN PRN Reason: Pain scale 2-4 (Mild) Stop: 08/21/19 10:31 Last Admin: 07/28/19 19:11 Dose: 500 mg Hydrocodone Bitart/Acetaminophen (Solomon 5/325) 1 tab PO Q4H PRN PRN Reason: Pain scale 5-7 (Moderate) Stop: 08/27/19 18:02 Last Admin: 07/30/19 08:25 Dose: 1 tab Albuterol Sulfate (Proventil 0.083% Neb Soln) 2.5 mg NEB [id number] [facility] Stop: 08/20/19 20:01 Last Admin: 07/30/19 19:25 Dose: 2.5 mg Atorvastatin Calcium (Lipitor) 40 mg PO BEDTIME [facility] Stop: 08/20/19 21:01 Last Admin: 07/30/19 20:55 Dose: 40 mg Calcium Acetate (Phoslo) 2,001 mg PO TIDWM [facility] Stop: 08/21/19 08:01 Last Admin: 07/30/19 16:58 Dose: 2,001 mg Cyanocobalamin (Vitamin B-12) 2,000 mcg PO DAILY [facility] Stop: 08/21/19 08:01 Last Admin: 07/30/19 08:00 Dose: 2,000 mcg Doxazosin Mesylate (Cardura) 2 mg PO BID PRN PRN Reason: Titrate to SBP (MUST DEFINE) Stop: 08/20/19 20:01 Duloxetine HCl (Cymbalta Delayed Release Pellets) 20 mg PO DAILY [facility] Stop: 08/27/19 08:01 Last Admin: 07/30/19 08:00 Dose: 20 mg Ferrous Sulfate (Feosol) 325 mg PO DAILY [facility] Stop: 08/30/19 08:01 Gabapentin (Neurontin) 100 mg PO DAILY [facility] Stop: 08/28/19 08:01 Last Admin: 07/30/19 08:00 Dose: 100 mg Guaifenesin (Robitussin 100mg/5ml) 100 mg PO QID PRN PRN Reason: COUGH Stop: 08/25/19 10:27 Heparin Sodium (Porcine) (Heparin 1,000 Units/Ml) 6,000 unit IV EVERY HD PRN PRN Reason: FLUSH AFTER EACH USE Stop: 08/21/19 11:39 Heparin Sodium (Porcine) (Heparin 1,000 Units/Ml) 2,000 unit IV EVERY HD BASSAM Stop: 08/01/19 20:01 Last Admin: 07/29/19 15:30 Dose: 2,000 unit Home Med (Home Med) 0 ea PO BEDTIME PRN PRN PRN Reason: INSOMNIA Stop: 08/20/19 19:01 Home Med (Home Med) 0 ea PO Cristina@0800 B[facility] Stop: 08/25/19 08:01 Last Admin: 07/26/19 08:11 Dose: 1 ea Home Med (Home Med) 0 ea PO DAILY [facility] Stop: 08/21/19 08:01 Last Admin: 07/30/19 08:00 Dose: 1 ea Home Med (Home Med) 0 ea PO DAILY [facility] Stop: 08/21/19 08:01 Last Admin: 07/30/19 08:00 Dose: 1 ea Home Med (Home Med) 0 ea PO DAILY [facility] Stop: 08/21/19 08:01 Last Admin: 07/30/19 08:00 Dose: 1 ea Home Med (Home Med) 0 ea PO DAILY [facility] Stop: 08/21/19 08:01 Last Admin: 07/30/19 08:00 Dose: 1 ea Albumin Human (Albumin 25%) 50 mls @ 100 mls/hr IV EVERY HD BASSAM Stop: 08/21/19 12:01 Last Admin: 07/29/19 15:58 Dose: 50 mls Ipratropium Ernest (Atrovent Neb) 0.5 mg NEB [id number] [facility] Stop: 08/20/19 20:01 Last Admin: 07/30/19 19:25 Dose: 0.5 mg Levetiracetam (Keppra Tab) 500 mg PO BID [facility] Stop: 08/20/19 20:01 Last Admin: 07/30/19 20:55 Dose: 500 mg Lidocaine (Aspercreme 4% Patch) 2 patch TOP DAILY [facility] Stop: 08/22/19 08:01 Last Admin: 07/30/19 10:58 Dose: 2 patch Loratadine (Claritin) 10 mg PO DAILY [facility] Stop: 08/21/19 08:01 Last Admin: 07/30/19 08:00 Dose: 10 mg Mannitol (Mannitol 12.5 Gm/50 Ml Vial) 12.5 gm IV EVERY HD PRN PRN Reason: Titrate to SBP (MUST DEFINE) Stop: 08/21/19 11:39 Multivitamins/Iron (Hemocyte Plus) 1 tab PO DAILY WITH BREAKFAST [facility] Stop: 08/30/19 08:01 Nutritional Formula (Promod Liquid Protein) 30 ml PO BID [facility] Stop: 08/23/19 08:01 Last Admin: 07/30/19 20:56 Dose: 30 ml Polyethylene Glycol (Glycolax) 17 gm PO DAILY PRN PRN Reason: CONSTIPATION Stop: 08/20/19 18:44 Ranitidine HCl (Zantac) 150 mg PO DAILY [facility] Stop: 08/21/19 08:01 Last Admin: 07/30/19 08:00 Dose: 150 mg Triamcinolone Acetonide (Kenalog 0.1% Cream) 1 appl TOP BID PRN PRN Reason: RASH Stop: 08/20/19 19:05 Warfarin Sodium (Coumadin) 2 mg PO DAILY 5 PM [facility] Stop: 08/21/19 17:01 Last Admin: 07/30/19 15:44 Dose: Not Given Warfarin Sodium (Coumadin) 2.5 mg PO DAILY 5 PM [facility] Stop: 08/21/19 17:01 Last Admin: 07/30/19 15:44 Dose: Not Given Lab Results (last 24 hrs) 07/30/19 05:34: WBC 10.2 D, RBC 2.92 L, Hgb 9.1 L, Hct 27.9 L, MCV 95.3, MCH 31.1, MCHC 32.7, RDW 15.4 H, Plt Count 209, MPV 8.3, Neutrophils % 75.1 H, Lymphocytes % 11.9 L, Monocytes % 8.8, Eosinophils % 3.7, Basophils % 0.5, Absolute Neutrophils 7.6, Absolute Lymphocytes 1.2, Absolute Monocytes 0.9, Absolute Eosinophils 0.4, Absolute Basophils 0.0 07/30/19 05:34: Sodium 138, Potassium 5.1, Chloride 109 H, Carbon Dioxide 22, BUN 83 H, Creatinine 9.28 H*, Estimated GFR 5 L, Glucose 89, Calcium 8.7 07/30/19 05:34: PT 34.9 H, INR 3.09 Assessment/ Plan: Nephrology Doing well. +Lower back and hip pain. +Fatigue +Weakness CPS stable without CP or SOB. No acute events overnight. Vitals, medications, blood work and imaging reviewed in the chart. General: In no apparent distress, Oriented x3, Cooperative HEENT: Atraumatic, Mucous membr. moist/pink Neck: Supple Respiratory: Clear to auscultation bilaterally, Normal air movement Cardiovascular: Regular rate/rhythm, No rubs, Edema Gastrointestinal: Soft and benign, Non-distended Musculoskeletal: No clubbing, No contractures Integumentary: No rashes, No significant lesion, No cyanosis Neurological: Normal speech Laboratory Data (last 24 hrs) 07/23/19 06:17: Sodium 137, Potassium 4.2, BUN 48 H D, Creatinine 7.32 H* D, Glucose 94, Magnesium 2.4 07/23/19 06:17: WBC 10.2, Hgb 11.0 L, Hct 32.2 L, Plt Count 229 07/23/19 06:17: PT 21.6 H, INR 1.88 Imagings Data: EXAM DESCRIPTION: Sera Single View07/16/2019 4:25 pm CLINICAL HISTORY: Chest pain COMPARISON: July 15 FINDINGS: Old left rib fractures Lungs appear clear of acute infiltrate The heart is mildly enlarged IMPRESSION: No acute abnormality displayed Conclusions/Impression: A/ ESRD on HD. Hyperkalemia. Diastolic CHF, chronic. 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 Anemia in CKD. PRASANNA/ Secondary HyperPTH. Paroxysmal Afib. AMS with weakness of unclear etiology. TIA? P/ Continue current POC and Medications. Next HD tomorrow. Lower Metoprolol. Encourage nutrition. PT as tolerated. AM labs. Daily weight. No NSAIDs.
[2019-07-31 06:10] LABS: Basophils % 0.6 % (0-1.3); Hematocrit 29.1 % (39.6-49.0); Lymphocytes % 8.1 % (15.3-44.8); MPV 8.1 fL (7.6-11.3); RBC Red Blood Cell Count 3.04 M/uL (4.33-5.43)
[2019-07-31 06:41] LABS: Protime INR 2.84
[2019-07-31 06:42] LABS: Albumin 3.1 g/dL (3.4-5.0); Prealbumin 20.1 mg/dL (20-40)
[2019-07-31 06:43] LABS: Thyroid Stimulating Hormone 2.83 uIU/mL (0.360-3.740)
[2019-07-31 06:52] LABS: Potassium 5.6 mmol/L (3.5-5.1)
[2019-07-31] MEDS ORDERED: SOD POLYSTYREN SUL 15 GM/60 ML UCUP PO ONE (06:59)
[2019-07-31] MEDS: ALBUTEROL 2.5 MG/3 ML NEB SOL NEB SCH ×3 (07:49→20:13)
[2019-07-31] MEDS: IPRATROPIUM BROM 0.5MG/2.5ML NEB SCH ×3 (07:49→20:13)
[2019-07-31] MEDS: METOPROLOL XL 50 MG TAB PO SCH ×2 (08:00→21:10)
[2019-07-31] MEDS: RANITIDINE 150 MG TABLET PO SCH (08:00)
[2019-07-31] MEDS: PROMOD 30 ML DOSE PO SCH ×2 (08:00→21:11)
[2019-07-31] MEDS: LYSINE 500 MG PO SCH (08:00)
[2019-07-31] MEDS: LIDOCAINE 4% PATCH TOP SCH (09:03)
[2019-07-31] MEDS: CYANOCOBALAMIN 1,000 MCG TAB PO SCH (09:04)
[2019-07-31] MEDS: FE SULF/FA/VIT B COMP & C TAB PO SCH (09:05)
[2019-07-31] MEDS: levETIRAcetam 500 MG TAB PO SCH ×2 (09:05→21:10)
[2019-07-31] MEDS: CA ACETATE 667 MG CAP PO SCH ×3 (09:05→16:32)
[2019-07-31] MEDS: FERROUS SULFATE 325 MG TAB PO SCH (09:05)
[2019-07-31] MEDS: DULOXETINE 20 MG CAP PO SCH (09:06)
[2019-07-31] MEDS: LORATADINE 10 MG TAB PO SCH (09:06)
[2019-07-31] MEDS: [UNRECOGNIZED DRUG - OTHER] PO SCH (09:07)
[2019-07-31] MEDS: RENA VITE PO SCH (09:08)
[2019-07-31] MEDS: ULORIC 80 MG PO SCH (09:08)
[2019-07-31] MEDS: GABAPENTIN 100 MG CAP PO SCH (09:10)
--- NOTE | 2019-07-31 10:08 | P.RH.PN ---
Estimated Length of Stay: 15 Expected Discharge Date: 08/04/19 Discharge Disposition Plan: Home Family Support: Yes Fpc Goal: Mobility, Transfers, Self Care Vital Signs: Last Vital Signs Temp 97.4 F 07/30/19 18:45 Pulse 80 07/31/19 08:00 Resp 14 07/30/19 18:45 BP 136/56 L 07/31/19 08:00 Pulse Ox 95 07/30/19 18:45 Laboratory: Laboratory Last Values WBC 12.9 K/uL (4.3-10.9) H D 07/31/19 05:47 RBC 3.04 M/uL (4.33-5.43) L 07/31/19 05:47 Hgb 9.5 g/dL (13.6-17.9) L 07/31/19 05:47 Hct 29.1 % (39.6-49.0) L 07/31/19 05:47 MCV 95.7 fL (80-100) 07/31/19 05:47 MCH 31.1 pg (27.0-35.0) 07/31/19 05:47 MCHC 32.5 g/dL (32.0-36.0) 07/31/19 05:47 RDW 15.7 % (12.1-15.2) H 07/31/19 05:47 Plt Count 226 K/uL (152-406) 07/31/19 05:47 MPV 8.1 fL (7.6-11.3) 07/31/19 05:47 Neutrophils % 79.9 % (41.7-73.7) H 07/31/19 05:47 Lymphocytes % 8.1 % (15.3-44.8) L 07/31/19 05:47 Monocytes % 8.0 % (3.3-12.3) 07/31/19 05:47 Eosinophils % 3.4 % (0-4.4) 07/31/19 05:47 Basophils % 0.6 % (0-1.3) 07/31/19 05:47 Absolute Neutrophils 10.4 K/uL (1.8-8.0) H 07/31/19 05:47 Absolute Lymphocytes 1.0 K/uL (0.7-4.9) 07/31/19 05:47 Absolute Monocytes 1.0 K/uL (0.1-1.3) 07/31/19 05:47 Absolute Eosinophils 0.4 K/uL (0-0.5) 07/31/19 05:47 Absolute Basophils 0.1 K/uL (0-0.5) 07/31/19 05:47 PT 32.2 SECONDS (9.5-12.5) H 07/31/19 05:47 INR 2.84 07/31/19 05:47 Sodium 137 mmol/L (136-145) 07/31/19 05:47 Potassium 5.6 mmol/L (3.5-5.1) H* 07/31/19 05:47 Chloride 106 mmol/L (98-107) 07/31/19 05:47 Carbon Dioxide 21 mmol/L (21-32) 07/31/19 05:47 BUN 99 mg/dL (7-18) H 07/31/19 05:47 Creatinine 10.90 mg/dL (0.55-1.3) H* D 07/31/19 05:47 Estimated GFR 5 mL/min (=/>90) L 07/31/19 05:47 Glucose 88 mg/dL (74-106) 07/31/19 05:47 Lactic Acid 1.0 mmol/L (0.4-2.0) 07/29/19 14:31 Uric Acid 1.4 mg/dL (3.5-7.2) L D 07/29/19 05:33 Calcium 8.8 mg/dL (8.5-10.1) 07/31/19 05:47 Phosphorus 8.6 mg/dL (2.5-4.9) H* 07/29/19 05:33 Magnesium 2.4 mg/dL (1.8-2.4) 07/29/19 05:33 Total Bilirubin 0.4 mg/dL (0.2-1.0) 07/29/19 05:33 AST 14 U/L (15-37) L 07/29/19 05:33 ALT 15 U/L (12-78) 07/29/19 05:33 Alkaline Phosphatase 85 U/L (45-117) 07/29/19 05:33 NT-Pro-B Natriuret Pep 79105 pg/mL (<450) H 07/29/19 05:33 Serum Total Protein 6.7 g/dL (6.4-8.2) 07/29/19 05:33 Albumin 3.1 g/dL (3.4-5.0) L 07/31/19 05:47 Globulin 3.8 g/dL (2.3-3.5) H 07/29/19 05:33 Albumin/Globulin Ratio 0.8 (1.1-1.8) L 07/29/19 05:33 Prealbumin 20.1 mg/dL (20-40) 07/31/19 05:47 Procalcitonin 1.45 ng/mL (<0.50) H 07/29/19 14:31 TSH 2.830 uIU/mL (0.360-3.740) 07/31/19 05:47 Cortisol 14.85 ug/dL (SEE COMMENT) 07/31/19 05:47 Weight: 243 lb Wound Present: No Closed Surgical Incision Present: No Negative Pressure Wound Therapy Present: No Physician Update: He is more sleepy today with Homeworker elevated to 10.9, his K is elevated to 5.6. He will likely have hemodialysis early today. He is not improving with his debility. He will likely be discharged to shelter. Medical Issues: Patient has no urine output , dialysis patient and always continent with bowel. Functional Improvement: pt demonstrates a willingness to participate; however, he is quite limited by the pain in his L LE. pt continues to require skilled PT services to enhance functional performance. Speech Therapy Update: Patient has been working diligently in but carryover is poor. Patient is limited by dyskinesia, drowsiness, pain, and weakness. Patient performs swallow strengthening exercises but requires frequent breaks to increase repetitions. Patient is tolerating current diet which consists of regular solids and thin liquids. Patient has mild-moderate dysarthria and speech intelligibility worsens when he fatigues. However, patient implements compensatory dysarthria strategies effectively during therapy. Patient requires a lot of repetition due to hearing loss. Summary: Patient's care plan and terminal carman goals have been reviewed and revised as necessary. Please see the Rehabilitation Signature page for all necessary signatures.
[2019-07-31] MEDS: WARFARIN SODIUM 2.5 MG TAB PO SCH (16:32)
[2019-07-31] MEDS: WARFARIN SODIUM 2 MG TAB PO SCH (16:32)
[2019-07-31] MEDS: ATORVASTATIN 40 MG TAB PO SCH (21:10)
--- NOTE | 2019-07-31 21:21 | P.PN ---
Date of Service: 07/31/19 Vital Signs Temp Pulse Resp BP Pulse Ox 98.0 F 92 H 16 122/60 93 07/31/19 20:00 07/31/19 21:10 07/31/19 20:00 07/31/19 21:10 07/31/19 20:00 Medications Acetaminophen (Tylenol -Extra Strength) 500 mg PO Q4H PRN PRN Reason: Pain scale 2-4 (Mild) Stop: 08/21/19 10:31 Last Admin: 07/28/19 19:11 Dose: 500 mg Hydrocodone Bitart/Acetaminophen (Farley 5/325) 1 tab PO Q4H PRN PRN Reason: Pain scale 5-7 (Moderate) Stop: 08/27/19 18:02 Last Admin: 07/30/19 08:25 Dose: 1 tab Albuterol Sulfate (Proventil 0.083% Neb Soln) 2.5 mg NEB [id number] [facility] Stop: 08/20/19 20:01 Last Admin: 07/31/19 14:54 Dose: 2.5 mg Atorvastatin Calcium (Lipitor) 40 mg PO BEDTIME [facility] Stop: 08/20/19 21:01 Last Admin: 07/31/19 21:10 Dose: 40 mg Calcium Acetate (Phoslo) 2,001 mg PO TIDWM [facility] Stop: 08/21/19 08:01 Last Admin: 07/31/19 16:32 Dose: 2,001 mg Cyanocobalamin (Vitamin B-12) 2,000 mcg PO DAILY [facility] Stop: 08/21/19 08:01 Last Admin: 07/31/19 09:04 Dose: 2,000 mcg Doxazosin Mesylate (Cardura) 2 mg PO BID PRN PRN Reason: Titrate to SBP (MUST DEFINE) Stop: 08/20/19 20:01 Duloxetine HCl (Cymbalta Delayed Release Pellets) 20 mg PO DAILY [facility] Stop: 08/27/19 08:01 Last Admin: 07/31/19 09:06 Dose: 20 mg Ferrous Sulfate (Feosol) 325 mg PO DAILY [facility] Stop: 08/30/19 08:01 Last Admin: 07/31/19 09:05 Dose: 325 mg Gabapentin (Neurontin) 100 mg PO DAILY [facility] Stop: 08/28/19 08:01 Last Admin: 07/31/19 09:10 Dose: 100 mg Guaifenesin (Robitussin 100mg/5ml) 100 mg PO QID PRN PRN Reason: COUGH Stop: 08/25/19 10:27 Heparin Sodium (Porcine) (Heparin 1,000 Units/Ml) 6,000 unit IV EVERY HD PRN PRN Reason: FLUSH AFTER EACH USE Stop: 08/21/19 11:39 Last Admin: 07/31/19 14:00 Dose: 6,000 unit Heparin Sodium (Porcine) (Heparin 1,000 Units/Ml) 2,000 unit IV EVERY HD [facility] Stop: 08/01/19 20:01 Last Admin: 07/31/19 11:47 Dose: 2,000 unit Home Med (Home Med) 0 ea PO BEDTIME PRN PRN PRN Reason: INSOMNIA Stop: 08/20/19 19:01 Home Med (Home Med) 0 ea PO Cristina@0800 [facility] Stop: 08/25/19 08:01 Last Admin: 07/26/19 08:11 Dose: 1 ea Home Med (Home Med) 0 ea PO DAILY [facility] Stop: 08/21/19 08:01 Last Admin: 07/31/19 09:07 Dose: 1 ea Home Med (Home Med) 0 ea PO DAILY [facility] Stop: 08/21/19 08:01 Last Admin: 07/31/19 09:08 Dose: 1 ea Home Med (Home Med) 0 ea PO DAILY [facility] Stop: 08/21/19 08:01 Last Admin: 07/31/19 09:08 Dose: 1 ea Home Med (Home Med) 0 ea PO DAILY [facility] Stop: 08/21/19 08:01 Last Admin: 07/31/19 08:00 Dose: Not Given Albumin Human (Albumin 25%) 50 mls @ 100 mls/hr IV EVERY HD [facility] Stop: 08/21/19 12:01 Last Admin: 07/29/19 15:58 Dose: 50 mls Ipratropium [place] (Atrovent Neb) 0.5 mg NEB [id number] [facility] Stop: 08/20/19 20:01 Last Admin: 07/31/19 14:54 Dose: 0.5 mg Levetiracetam (Keppra Tab) 500 mg PO BID [facility] Stop: 08/20/19 20:01 Last Admin: 07/31/19 21:10 Dose: 500 mg Lidocaine (Aspercreme 4% Patch) 2 patch TOP DAILY [facility] Stop: 08/22/19 08:01 Last Admin: 07/31/19 09:03 Dose: 2 patch Loratadine (Claritin) 10 mg PO DAILY [facility] Stop: 08/21/19 08:01 Last Admin: 07/31/19 09:06 Dose: 10 mg Mannitol (Mannitol 12.5 Gm/50 Ml Vial) 12.5 gm IV EVERY HD PRN PRN Reason: Titrate to SBP (MUST DEFINE) Stop: 08/21/19 11:39 Metoprolol Succinate (Toprol Xl) 25 mg PO BID [facility] Stop: 08/30/19 08:01 Last Admin: 07/31/19 21:10 Dose: 25 mg Multivitamins/Iron (Hemocyte Plus) 1 tab PO DAILY WITH BREAKFAST [facility] Stop: 08/30/19 08:01 Last Admin: 07/31/19 09:05 Dose: 1 tab Nutritional Formula (Promod Liquid Protein) 30 ml PO BID [facility] Stop: 08/23/19 08:01 Last Admin: 07/31/19 21:11 Dose: 30 ml Polyethylene Glycol (Glycolax) 17 gm PO DAILY PRN PRN Reason: CONSTIPATION Stop: 08/20/19 18:44 Ranitidine HCl (Zantac) 150 mg PO DAILY [facility] Stop: 08/21/19 08:01 Last Admin: 07/31/19 08:00 Dose: Not Given Triamcinolone Acetonide (Kenalog 0.1% Cream) 1 appl TOP BID PRN PRN Reason: RASH Stop: 08/20/19 19:05 Warfarin Sodium (Coumadin) 2 mg PO DAILY 5 PM [facility] Stop: 08/21/19 17:01 Last Admin: 07/31/19 16:32 Dose: 2 mg Warfarin Sodium (Coumadin) 2.5 mg PO DAILY 5 PM [facility] Stop: 08/21/19 17:01 Last Admin: 07/31/19 16:32 Dose: 2.5 mg Lab Results (last 24 hrs) 07/31/19 05:47: Cortisol 14.85 07/31/19 05:47: Sodium 137, Potassium 5.6 H*, Chloride 106, Carbon Dioxide 21, BUN 99 H, Creatinine 10.90 H* D, Estimated GFR 5 L, Glucose 88, Calcium 8.8, TSH 2.830 07/31/19 05:47: WBC 12.9 H D, RBC 3.04 L, Hgb 9.5 L, Hct 29.1 L, MCV 95.7, MCH 31.1, MCHC 32.5, RDW 15.7 H, Plt Count 226, MPV 8.1, Neutrophils % 79.9 H, Lymphocytes % 8.1 L, Monocytes % 8.0, Eosinophils % 3.4, Basophils % 0.6, Absolute Neutrophils 10.4 H, Absolute Lymphocytes 1.0, Absolute Monocytes 1.0, Absolute Eosinophils 0.4, Absolute Basophils 0.1 07/31/19 05:47: Albumin 3.1 L, Prealbumin 20.1 07/31/19 05:47: PT 32.2 H, INR 2.84 Assessment/ Plan: Nephrology Doing well. +Fatigue +Weakness +Confusion CPS stable without CP or SOB. No acute events overnight. Vitals, medications, blood work and imaging reviewed in the chart. General: In no apparent distress, Oriented x3, Cooperative HEENT: Atraumatic, Mucous membr. moist/pink Neck: Supple Respiratory: Clear to auscultation bilaterally, Normal air movement Cardiovascular: Regular rate/rhythm, No rubs, Edema Gastrointestinal: Soft and benign, Non-distended Musculoskeletal: No clubbing, No contractures Integumentary: No rashes, No significant lesion, No cyanosis Neurological: Normal speech Laboratory Data (last 24 hrs) 07/23/19 06:17: Sodium 137, Potassium 4.2, BUN 48 H D, Creatinine 7.32 H* D, Glucose 94, Magnesium 2.4 07/23/19 06:17: WBC 10.2, Hgb 11.0 L, Hct 32.2 L, Plt Count 229 07/23/19 06:17: PT 21.6 H, INR 1.88 Imagings Data: EXAM DESCRIPTION: Sera Single View07/16/2019 4:25 pm CLINICAL HISTORY: Chest pain COMPARISON: July 15 FINDINGS: Old left rib fractures Lungs appear clear of acute infiltrate The heart is mildly enlarged IMPRESSION: No acute abnormality displayed Conclusions/Impression: A/ ESRD on HD. Possible recirculation of AVF? Hyperkalemia. Diastolic CHF, chronic. 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 Anemia in CKD. PRASANNA/ Secondary HyperPTH. Paroxysmal Afib. Toxic Metabolic Encephalopathy. P/ Continue current POC and Medications. Consider a repeat HD tomorrow. Encourage nutrition. PT as tolerated. AM labs. Daily weight. No NSAIDs.
--- NOTE | 2019-08-01 02:40 | FAST ---
SHIFT START DATE/TIME: 07/31/2019 19:00 (PIPE CHIPPER) SHIFT END DATE/TIME: 08/01/2019 07:00 (PIPE CHIPPER) NAME CHELA RUBALCAVA DATE OF : 1935 DATE OF ADMISSION: 07/21/2019 17:57 (PIPE CHIPPER) PHONE: AGE: 84 SSN# [id number] GENDER: Male ENCOUNTER PHYSICIAN: Dr. Gamal Lafleur M.D. ADMISSION DIAGNOSIS: - Debility 16 - Debility (16) ESRD. EATING: Not assessed/no information CODE: - ORAL HYGIENE: ORAL HYGIENE - STEP 1: Does the patient complete the activity by him/herself with no assistance (physical, verbal/nonverbal cueing, setup/clean-up)? No. ORAL HYGIENE - STEP 2: Does the patient need only setup/clean-up assistance from one helper? No. ORAL HYGIENE - STEP 3: Does the patient need only verbal/nonverbal cueing or touching/steadying/contact guard assistance fro m one helper? Yes. 1. [id number] ADMISSION PERFORMANCE: Supervision or touching assistance CODE: 04 TOILETING HYGIENE: TOILETING HYGIENE - STEP 1: Does the patient complete the activity by him/herself with no assistance (physical, verbal/nonverbal cueing, setup/clean-up)? No. TOILETING HYGIENE - STEP 2: Does the patient need only setup/clean-up assistance from one helper? No. TOILETING HYGIENE - STEP 3: Does the patient need only verbal/nonverbal cueing or touching/steadying/contact guard assistance fro m one helper? No. TOILETING HYGIENE - STEP 4: Does the patient need physical assistance - for example lifting or trunk support from one helper - wi th the helper providing less than half of the effort? Yes. 1. [id number] ADMISSION PERFORMANCE: Partial/moderate assistance CODE: 03 BATHING: Not assessed/no information CODE: - DRESSING - UPPER BODY: Not assessed/no information CODE: - DRESSING - LOWER BODY: Not assessed/no information CODE: - PUTTING ON/TAKING OFF FOOTWEAR: Not assessed/no information CODE: - ROLL LEFT AND RIGHT: ROLL LEFT AND RIGHT - STEP 1: Does the patient complete the activity by him/herself with no assistance (physical, verbal/nonverbal cueing, setup/clean-up)? No. ROLL LEFT AND RIGHT - STEP 2: Does the patient need only setup/clean-up assistance from one helper? No. ROLL LEFT AND RIGHT - STEP 3: Does the patient need only verbal/nonverbal cueing or touching/steadying/contact guard assistance fro m one helper? No. ROLL LEFT AND RIGHT - STEP 4: Does the patient need physical assistance - for example lifting or trunk support from one helper - wi th the helper providing less than half of the effort? No. ROLL LEFT AND RIGHT - STEP 5: Does the patient need physical assistance - for example lifting or trunk support from one helper - wi th the helper providing more than half of the effort? No. ROLL LEFT AND RIGHT - STEP 6: Does the helper provide all of the effort? OR Is the assistance of two or more helpers required to co mplete the activity? Yes. 1. [id number] ADMISSION PERFORMANCE: Dependent CODE: 01 SIT TO LYING: SIT TO LYING - STEP 1: Does the patient complete the activity by him/herself with no assistance (physical, verbal/nonverbal cueing, setup/clean-up)? No. SIT TO LYING - STEP 2: Does the patient need only setup/clean-up assistance from one helper? No. SIT TO LYING - STEP 3: Does the patient need only verbal/nonverbal cueing or touching/steadying/contact guard assistance fro m one helper? No. SIT TO LYING - STEP 4: Does the patient need physical assistance - for example lifting or trunk support from one helper - wi th the helper providing less than half of the effort? No. SIT TO LYING - STEP 5: Does the patient need physical assistance - for example lifting or trunk support from one helper - wi th the helper providing more than half of the effort? No. SIT TO LYING - STEP 6: Does the helper provide all of the effort? OR Is the assistance of two or more helpers required to co mplete the activity? Yes. 1. [id number] ADMISSION PERFORMANCE: Dependent CODE: 01 LYING TO SITTING: LYING TO SITTING ON SIDE OF BED - STEP 1: Does the patient complete the activity by him/herself with no assistance (physical, verbal/nonverbal cueing, setup/clean-up)? No. LYING TO SITTING ON SIDE OF BED - STEP 2: Does the patient need only setup/clean-up assistance from one helper? No. LYING TO SITTING ON SIDE OF BED - STEP 3: Does the patient need only verbal/nonverbal cueing or touching/steadying/contact guard assistance fro m one helper? No. LYING TO SITTING ON SIDE OF BED - STEP 4: Does the patient need physical assistance - for example lifting or trunk support from one helper - wi th the helper providing less than half of the effort? No. LYING TO SITTING ON SIDE OF BED - STEP 5: Does the patient need physical assistance - for example lifting or trunk support from one helper - wi th the helper providing more than half of the effort? No. LYING TO SITTING ON SIDE OF BED - STEP 6: Does the helper provide all of the effort? OR Is the assistance of two or more helpers required to co mplete the activity? Yes. 1. [id number] ADMISSION PERFORMANCE: Dependent CODE: 01 SIT TO STAND: Not assessed/no information CODE: - TRANSFERS: BED, CHAIR: Not assessed/no information CODE: - TRANSFER TOILET: Not assessed/no information CODE: - TRANSFERS: CAR: Not assessed/no information CODE: - WALK 10 FEET: Not assessed/no information CODE: - 1 STEP (CURB): Not assessed/no information CODE: - PICKING UP OBJECT: Not assessed/no information CODE: - DOES THE PATIENT USE A WHEELCHAIR/SCOOTER? CODE: EXPR WHEEL 50 FEET WITH TWO TURNS: Not assessed/no information CODE: - INDICATE THE TYPE OF WHEELCHAIR/SCOOTER USED: CODE: EXPR WHEEL 150 FEET: Not assessed/no information CODE: - INDICATE THE TYPE OF WHEELCHAIR/SCOOTER USED: CODE: EXPR BLADDER AND BOWEL: H350. BLADDER CONTINENCE (3-DAY ASSESSMENT PERIOD): Always continent (no documented incontinence) CODE: 0 H400. BOWEL CONTINENCE (3-DAY ASSESSMENT PERIOD): Always continent CODE: 0
[2019-08-01] MEDS: ALBUTEROL 2.5 MG/3 ML NEB SOL NEB SCH ×4 (02:56→19:30)
[2019-08-01] MEDS: IPRATROPIUM BROM 0.5MG/2.5ML NEB SCH ×4 (02:56→19:30)
[2019-08-01 07:08] LABS: Albumin 2.7 g/dL (3.4-5.0); Bilirubin Total 0.5 mg/dL (0.2-1.0); Phosphorus 4.8 mg/dL (2.5-4.9); Potassium 4.5 mmol/L (3.5-5.1); Protein, Total 6.2 g/dL (6.4-8.2); Uric Acid 1.1 mg/dL (3.5-7.2)
[2019-08-01] MEDS: METOPROLOL XL 50 MG TAB PO SCH ×2 (08:00→20:00)
[2019-08-01] MEDS: FE SULF/FA/VIT B COMP & C TAB PO SCH (08:31)
[2019-08-01] MEDS: DULOXETINE 20 MG CAP PO SCH (08:32)
[2019-08-01] MEDS: FERROUS SULFATE 325 MG TAB PO SCH (08:32)
[2019-08-01] MEDS: RANITIDINE 150 MG TABLET PO SCH (08:32)
[2019-08-01] MEDS: CA ACETATE 667 MG CAP PO SCH ×3 (08:32→16:57)
[2019-08-01] MEDS: levETIRAcetam 500 MG TAB PO SCH (08:33)
[2019-08-01] MEDS: HYDROCODONE/APAP 5/325 MG TAB PO PRN (08:33)
[2019-08-01] MEDS: GABAPENTIN 100 MG CAP PO SCH (08:35)
[2019-08-01] MEDS: LORATADINE 10 MG TAB PO SCH (08:35)
[2019-08-01] MEDS: LYSINE 500 MG PO SCH (08:36)
[2019-08-01] MEDS: [UNRECOGNIZED DRUG - OTHER] PO SCH (08:36)
[2019-08-01] MEDS: ULORIC 80 MG PO SCH (08:37)
[2019-08-01] MEDS: RENA VITE PO SCH (08:37)
[2019-08-01] MEDS: PROMOD 30 ML DOSE PO SCH ×2 (08:38→20:00)
[2019-08-01] MEDS: CYANOCOBALAMIN 1,000 MCG TAB PO SCH (08:39)
[2019-08-01] MEDS: LIDOCAINE 4% PATCH TOP SCH (09:07)
--- NOTE | 2019-08-01 12:44 | P.PN ---
Date of Service: 08/01/19 Vital Signs Temp Pulse Resp BP Pulse Ox 97.6 F 86 17 116/51 L 75 L 08/01/19 08:00 08/01/19 08:00 08/01/19 09:26 08/01/19 08:00 08/01/19 09:26 Medications Acetaminophen (Tylenol -Extra Strength) 500 mg PO Q4H PRN PRN Reason: Pain scale 2-4 (Mild) Stop: 08/21/19 10:31 Last Admin: 07/28/19 19:11 Dose: 500 mg Hydrocodone Bitart/Acetaminophen ([place] 5/325) 1 tab PO Q4H PRN PRN Reason: Pain scale 5-7 (Moderate) Stop: 08/27/19 18:02 Last Admin: 08/01/19 08:33 Dose: 1 tab Albuterol Sulfate (Proventil 0.083% Neb Soln) 2.5 mg NEB [id number] [facility] Stop: 08/20/19 20:01 Last Admin: 08/01/19 07:45 Dose: 2.5 mg Atorvastatin Calcium (Lipitor) 40 mg PO BEDTIME [facility] Stop: 08/20/19 21:01 Last Admin: 07/31/19 21:10 Dose: 40 mg Calcium Acetate (Phoslo) 2,001 mg PO TIDWM [facility] Stop: 08/21/19 08:01 Last Admin: 08/01/19 12:05 Dose: 2,001 mg Cyanocobalamin (Vitamin B-12) 2,000 mcg PO DAILY [facility] Stop: 08/21/19 08:01 Last Admin: 08/01/19 08:39 Dose: 2,000 mcg Doxazosin Mesylate (Cardura) 2 mg PO BID PRN PRN Reason: Titrate to SBP (MUST DEFINE) Stop: 08/20/19 20:01 Duloxetine HCl (Cymbalta Delayed Release Pellets) 20 mg PO DAILY [facility] Stop: 08/27/19 08:01 Last Admin: 08/01/19 08:32 Dose: 20 mg Ferrous Sulfate (Feosol) 325 mg PO DAILY [facility] Stop: 08/30/19 08:01 Last Admin: 08/01/19 08:32 Dose: 325 mg Gabapentin (Neurontin) 100 mg PO DAILY [facility] Stop: 08/28/19 08:01 Last Admin: 08/01/19 08:35 Dose: 100 mg Guaifenesin (Robitussin 100mg/5ml) 100 mg PO QID PRN PRN Reason: COUGH Stop: 08/25/19 10:27 Heparin Sodium (Porcine) (Heparin 1,000 Units/Ml) 6,000 unit IV EVERY HD PRN PRN Reason: FLUSH AFTER EACH USE Stop: 08/21/19 11:39 Last Admin: 07/31/19 14:00 Dose: 6,000 unit Heparin Sodium (Porcine) (Heparin 1,000 Units/Ml) 2,000 unit IV EVERY HD [facility] Stop: 08/01/19 20:01 Last Admin: 07/31/19 11:47 Dose: 2,000 unit Home Med (Home Med) 0 ea PO BEDTIME PRN PRN PRN Reason: INSOMNIA Stop: 08/20/19 19:01 Home Med (Home Med) 0 ea PO Cristina@0800 [facility] Stop: 08/25/19 08:01 Last Admin: 07/26/19 08:11 Dose: 1 ea Home Med (Home Med) 0 ea PO DAILY [facility] Stop: 08/21/19 08:01 Last Admin: 08/01/19 08:36 Dose: 1 ea Home Med (Home Med) 0 ea PO DAILY [facility] Stop: 08/21/19 08:01 Last Admin: 08/01/19 08:37 Dose: 1 ea Home Med (Home Med) 0 ea PO DAILY [facility] Stop: 08/21/19 08:01 Last Admin: 08/01/19 08:37 Dose: 1 ea Home Med (Home Med) 0 ea PO DAILY [facility] Stop: 08/21/19 08:01 Last Admin: 08/01/19 08:36 Dose: 1 ea Albumin Human (Albumin 25%) 50 mls @ 100 mls/hr IV EVERY HD [facility] Stop: 08/21/19 12:01 Last Admin: 07/29/19 15:58 Dose: 50 mls Ipratropium [place] (Atrovent Neb) 0.5 mg NEB [id number] [facility] Stop: 08/20/19 20:01 Last Admin: 08/01/19 07:45 Dose: 0.5 mg Levetiracetam (Keppra Tab) 500 mg PO BID [facility] Stop: 08/20/19 20:01 Last Admin: 08/01/19 08:33 Dose: 500 mg Lidocaine (Aspercreme 4% Patch) 2 patch TOP DAILY [facility] Stop: 08/22/19 08:01 Last Admin: 08/01/19 09:07 Dose: 2 patch Loratadine (Claritin) 10 mg PO DAILY [facility] Stop: 08/21/19 08:01 Last Admin: 08/01/19 08:35 Dose: 10 mg Mannitol (Mannitol 12.5 Gm/50 Ml Vial) 12.5 gm IV EVERY HD PRN PRN Reason: Titrate to SBP (MUST DEFINE) Stop: 08/21/19 11:39 Metoprolol Succinate (Toprol Xl) 25 mg PO BID [facility] Stop: 08/30/19 08:01 Last Admin: 08/01/19 08:00 Dose: Not Given Multivitamins/Iron (Hemocyte Plus) 1 tab PO DAILY WITH BREAKFAST [facility] Stop: 08/30/19 08:01 Last Admin: 08/01/19 08:31 Dose: 1 tab Nutritional Formula (Promod Liquid Protein) 30 ml PO BID [facility] Stop: 08/23/19 08:01 Last Admin: 08/01/19 08:38 Dose: 30 ml Polyethylene Glycol (Glycolax) 17 gm PO DAILY PRN PRN Reason: CONSTIPATION Stop: 08/20/19 18:44 Ranitidine HCl (Zantac) 150 mg PO DAILY [facility] Stop: 08/21/19 08:01 Last Admin: 08/01/19 08:32 Dose: 150 mg Triamcinolone Acetonide (Kenalog 0.1% Cream) 1 appl TOP BID PRN PRN Reason: RASH Stop: 08/20/19 19:05 Warfarin Sodium (Coumadin) 2 mg PO DAILY 5 PM [facility] Stop: 08/21/19 17:01 Last Admin: 07/31/19 16:32 Dose: 2 mg Warfarin Sodium (Coumadin) 2.5 mg PO DAILY 5 PM [facility] Stop: 08/21/19 17:01 Last Admin: 07/31/19 16:32 Dose: 2.5 mg Lab Results (last 24 hrs) 08/01/19 06:16: Sodium 139, Potassium 4.5, Chloride 103, Carbon Dioxide 29, BUN 51 H D, Creatinine 6.57 H* D, Estimated GFR 8 L, Glucose 94, Uric Acid 1.1 L, Calcium 9.0, Phosphorus 4.8, Magnesium 2.0, Total Bilirubin 0.5, AST 19, ALT 19 , Alkaline Phosphatase 81, Serum Total Protein 6.2 L, Albumin 2.7 L, Globulin 3.5, Albumin/Globulin Ratio 0.8 L Assessment/ Plan: Nephrology Doing well. +Fatigue +Weakness Feeling better today. CPS stable without CP or SOB. No acute events overnight. Vitals, medications, blood work and imaging reviewed in the chart. General: In no apparent distress, Oriented x3, Cooperative HEENT: Atraumatic, Mucous membr. moist/pink Neck: Supple Respiratory: Clear to auscultation bilaterally, Normal air movement Cardiovascular: Regular rate/rhythm, No rubs, Edema Gastrointestinal: Soft and benign, Non-distended Musculoskeletal: No clubbing, No contractures Integumentary: No rashes, No significant lesion, No cyanosis Neurological: Normal speech Laboratory Data (last 24 hrs) 07/23/19 06:17: Sodium 137, Potassium 4.2, BUN 48 H D, Creatinine 7.32 H* D, Glucose 94, Magnesium 2.4 07/23/19 06:17: WBC 10.2, Hgb 11.0 L, Hct 32.2 L, Plt Count 229 07/23/19 06:17: PT 21.6 H, INR 1.88 Imagings Data: EXAM DESCRIPTION: Sera Single View07/16/2019 4:25 pm CLINICAL HISTORY: Chest pain COMPARISON: July 15 FINDINGS: Old left rib fractures Lungs appear clear of acute infiltrate The heart is mildly enlarged IMPRESSION: No acute abnormality displayed Conclusions/Impression: A/ ESRD on HD. Possible recirculation of AVF? Hyperkalemia. Diastolic CHF, chronic. 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 Anemia in CKD. PRASANNA/ Secondary HyperPTH. Paroxysmal Afib. Toxic Metabolic Encephalopathy. P/ Continue current POC and Medications. Arrange for acute HD today. AVF ultrasound pending. Encourage nutrition. PT as tolerated. AM labs. Daily weight. No NSAIDs.
[2019-08-01 13:18] LABS: Protime INR 2.27
[2019-08-01] MEDS: WARFARIN SODIUM 2.5 MG TAB PO SCH (16:57)
--- NOTE | 2019-08-01 16:57 | RAD REPORT ---
EXAM DESCRIPTION: US - Extremity Venous Uni Ltd - 08/01/2019 4:47 pm CLINICAL HISTORY: Left AVF dysfunction. Evaluate flow/stenosis. Left arm swelling COMPARISON: <Comparisons> FINDINGS: Left upper extremity venous system was interrogated with Doppler technique. Normal flow, c ompressibility and augmentation was noted. There is no DVT present. IMPRESSION: No evidence of left upper extremity deep venous thrombosis.
[2019-08-01] MEDS: WARFARIN SODIUM 2 MG TAB PO SCH (16:58)
[2019-08-02] MEDS: ATORVASTATIN 40 MG TAB PO SCH ×2 (00:02→19:53)
[2019-08-02] MEDS: levETIRAcetam 500 MG TAB PO SCH ×3 (00:03→19:53)
[2019-08-02] MEDS: guaiFENesin 100 MG/5 ML UCUP PO PRN ×3 (00:04→16:39)
[2019-08-02] MEDS: IPRATROPIUM BROM 0.5MG/2.5ML NEB SCH ×4 (01:43→19:25)
[2019-08-02] MEDS: ALBUTEROL 2.5 MG/3 ML NEB SOL NEB SCH ×4 (01:43→19:25)
[2019-08-02 06:51] LABS: Protime INR 2.2
[2019-08-02] MEDS: PROMOD 30 ML DOSE PO SCH ×2 (08:00→19:53)
[2019-08-02] MEDS: CYANOCOBALAMIN 1,000 MCG TAB PO SCH (08:00)
[2019-08-02] MEDS: LIDOCAINE 4% PATCH TOP SCH (08:02)
[2019-08-02] MEDS: METOPROLOL XL 50 MG TAB PO SCH ×2 (08:02→19:52)
[2019-08-02] MEDS: FERROUS SULFATE 325 MG TAB PO SCH (08:02)
[2019-08-02] MEDS: LORATADINE 10 MG TAB PO SCH (08:02)
[2019-08-02] MEDS: DULOXETINE 20 MG CAP PO SCH (08:02)
[2019-08-02] MEDS: FE SULF/FA/VIT B COMP & C TAB PO SCH (08:03)
[2019-08-02] MEDS: CA ACETATE 667 MG CAP PO SCH ×5 (08:03→16:39)
[2019-08-02] MEDS: RANITIDINE 150 MG TABLET PO SCH (08:03)
[2019-08-02] MEDS: GABAPENTIN 100 MG CAP PO SCH (08:03)
[2019-08-02] MEDS: LYSINE 500 MG PO SCH (08:04)
[2019-08-02] MEDS: RENA VITE PO SCH (08:04)
[2019-08-02] MEDS: [UNRECOGNIZED DRUG - OTHER] PO SCH (08:04)
[2019-08-02] MEDS: ULORIC 80 MG PO SCH (08:04)
[2019-08-02] MEDS: VITAMIN D3 50000 UNIT PO SCH (08:05)
[2019-08-02] MEDS: HYDROCODONE/APAP 5/325 MG TAB PO PRN (13:48)
[2019-08-02] MEDS: WARFARIN SODIUM 2.5 MG TAB PO SCH (16:40)
[2019-08-02] MEDS: WARFARIN SODIUM 2 MG TAB PO SCH (16:40)
[2019-08-03] MEDS: IPRATROPIUM BROM 0.5MG/2.5ML NEB SCH ×4 (01:25→20:35)
[2019-08-03] MEDS: ALBUTEROL 2.5 MG/3 ML NEB SOL NEB SCH ×4 (01:25→20:35)
[2019-08-03 06:09] LABS: Protime INR 2.22
[2019-08-03] MEDS: PROMOD 30 ML DOSE PO SCH ×2 (08:00→19:13)
[2019-08-03] MEDS: ULORIC 80 MG PO SCH (08:43)
[2019-08-03] MEDS: LYSINE 500 MG PO SCH (08:44)
[2019-08-03] MEDS: [UNRECOGNIZED DRUG - OTHER] PO SCH (08:44)
[2019-08-03] MEDS: RENA VITE PO SCH (08:45)
[2019-08-03] MEDS: CA ACETATE 667 MG CAP PO SCH ×3 (08:45→19:12)
[2019-08-03] MEDS: FE SULF/FA/VIT B COMP & C TAB PO SCH (08:46)
[2019-08-03] MEDS: RANITIDINE 150 MG TABLET PO SCH (08:46)
[2019-08-03] MEDS: CYANOCOBALAMIN 1,000 MCG TAB PO SCH (08:46)
[2019-08-03] MEDS: FERROUS SULFATE 325 MG TAB PO SCH (08:46)
[2019-08-03] MEDS: LIDOCAINE 4% PATCH TOP SCH (08:46)
[2019-08-03] MEDS: DULOXETINE 20 MG CAP PO SCH (08:46)
[2019-08-03] MEDS: levETIRAcetam 500 MG TAB PO SCH ×2 (08:47→19:13)
[2019-08-03] MEDS: METOPROLOL XL 50 MG TAB PO SCH ×2 (08:47→19:14)
[2019-08-03] MEDS: LORATADINE 10 MG TAB PO SCH (08:47)
[2019-08-03] MEDS: GABAPENTIN 100 MG CAP PO SCH (08:47)
[2019-08-03] MEDS: HYDROCODONE/APAP 5/325 MG TAB PO PRN ×2 (08:48→12:18)
--- NOTE | 2019-08-03 08:57 | FAST ---
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 Gamal Lafleur M.D. ADMISSION DIAGNOSIS: - Debility 16 - Debility (16) ESRD. ROLL LEFT AND RIGHT: ROLL LEFT AND RIGHT - STEP 1: Does the patient complete the activity by him/herself with no assistance (physical, verbal/nonverbal cueing, setup/clean-up)? No. ROLL LEFT AND RIGHT - STEP 2: Does the patient need only setup/clean-up assistance from one helper? No. ROLL LEFT AND RIGHT - STEP 3: Does the patient need only verbal/nonverbal cueing or touching/steadying/contact guard assistance fro m one helper? No. ROLL LEFT AND RIGHT - STEP 4: Does the patient need physical assistance - for example lifting or trunk support from one helper - wi th the helper providing less than half of the effort? No. ROLL LEFT AND RIGHT - STEP 5: Does the patient need physical assistance - for example lifting or trunk support from one helper - wi th the helper providing more than half of the effort? Yes. 1. [id number] ADMISSION PERFORMANCE: Substantial/maximal assistance CODE: 02 SIT TO LYING: SIT TO LYING - STEP 1: Does the patient complete the activity by him/herself with no assistance (physical, verbal/nonverbal cueing, setup/clean-up)? No. SIT TO LYING - STEP 2: Does the patient need only setup/clean-up assistance from one helper? No. SIT TO LYING - STEP 3: Does the patient need only verbal/nonverbal cueing or touching/steadying/contact guard assistance fro m one helper? No. SIT TO LYING - STEP 4: Does the patient need physical assistance - for example lifting or trunk support from one helper - wi th the helper providing less than half of the effort? No. SIT TO LYING - STEP 5: Does the patient need physical assistance - for example lifting or trunk support from one helper - wi th the helper providing more than half of the effort? Yes. 1. [id number] ADMISSION PERFORMANCE: Substantial/maximal assistance CODE: 02 LYING TO SITTING: LYING TO SITTING ON SIDE OF BED - STEP 1: Does the patient complete the activity by him/herself with no assistance (physical, verbal/nonverbal cueing, setup/clean-up)? No. LYING TO SITTING ON SIDE OF BED - STEP 2: Does the patient need only setup/clean-up assistance from one helper? No. LYING TO SITTING ON SIDE OF BED - STEP 3: Does the patient need only verbal/nonverbal cueing or touching/steadying/contact guard assistance fro m one helper? No. LYING TO SITTING ON SIDE OF BED - STEP 4: Does the patient need physical assistance - for example lifting or trunk support from one helper - wi th the helper providing less than half of the effort? No. LYING TO SITTING ON SIDE OF BED - STEP 5: Does the patient need physical assistance - for example lifting or trunk support from one helper - wi th the helper providing more than half of the effort? Yes. 1. [id number] ADMISSION PERFORMANCE: Substantial/maximal assistance CODE: 02 SIT TO STAND: SIT TO STAND - STEP 1: Does the patient complete the activity by him/herself with no assistance (physical, verbal/nonverbal cueing, setup/clean-up)? No. SIT TO STAND - STEP 2: Does the patient need only setup/clean-up assistance from one helper? No. SIT TO STAND - STEP 3: Does the patient need only verbal/nonverbal cueing or touching/steadying/contact guard assistance fro m one helper? No. SIT TO STAND - STEP 4: Does the patient need physical assistance - for example lifting or trunk support from one helper - wi th the helper providing less than half of the effort? No. SIT TO STAND - STEP 5: Does the patient need physical assistance - for example lifting or trunk support from one helper - wi th the helper providing more than half of the effort? Yes. 1. [id number] ADMISSION PERFORMANCE: Substantial/maximal assistance CODE: 02 TRANSFERS: BED, CHAIR: [id number] TRANSFER - STEP 1: Does the patient complete the activity by him/herself with no assistance (physical, verbal/nonverbal cueing, setup/clean-up)? No. CHAIR/[id number] TRANSFER - STEP 2: Does the patient need only setup/clean-up assistance from one helper? No. CHAIR/[id number] TRANSFER - STEP 3: Does the patient need only verbal/nonverbal cueing or touching/steadying/contact guard assistance fro m one helper? No. CHAIR/[id number] TRANSFER - STEP 4: Does the patient need physical assistance - for example lifting or trunk support from one helper - wi th the helper providing less than half of the effort? No. CHAIR/[id number] TRANSFER - STEP 5: Does the patient need physical assistance - for example lifting or trunk support from one helper - wi th the helper providing more than half of the effort? Yes. 1. [id number] ADMISSION PERFORMANCE: Substantial/maximal assistance CODE: 02 TRANSFER TOILET: TOILET TRANSFER - STEP 1: Does the patient complete the activity by him/herself with no assistance (physical, verbal/nonverbal cueing, setup/clean-up)? No. TOILET TRANSFER - STEP 2: Does the patient need only setup/clean-up assistance from one helper? No. TOILET TRANSFER - STEP 3: Does the patient need only verbal/nonverbal cueing or touching/steadying/contact guard assistance fro m one helper? No. TOILET TRANSFER - STEP 4: Does the patient need physical assistance - for example lifting or trunk support from one helper - wi th the helper providing less than half of the effort? No. TOILET TRANSFER - STEP 5: Does the patient need physical assistance - for example lifting or trunk support from one helper - wi th the helper providing more than half of the effort? Yes. 1. [id number] ADMISSION PERFORMANCE: Substantial/maximal assistance CODE: 02 TRANSFERS: CAR: Not attempted due to environmental limitations (e.g., lack of equipment, weather constraints) CODE: 10 WALK 10 FEET: WALK 10 FEET - STEP 1: Does the patient complete the activity by him/herself with no assistance (physical, verbal/nonverbal cueing, setup/clean-up)? No. WALK 10 FEET - STEP 2: Does the patient need only setup/clean-up assistance from one helper? No. WALK 10 FEET - STEP 3: Does the patient need only verbal/nonverbal cueing or touching/steadying/contact guard assistance fro m one helper? No. WALK 10 FEET - STEP 4: Does the patient need physical assistance - for example lifting or trunk support from one helper - wi th the helper providing less than half of the effort? No. WALK 10 FEET - STEP 5: Does the patient need physical assistance - for example lifting or trunk support from one helper - wi th the helper providing more than half of the effort? Yes. 1. [id number] ADMISSION PERFORMANCE: Substantial/maximal assistance CODE: 02 WALK 50 FEET: Not attempted due to medical condition or safety concerns CODE: 88 WALK 150 FEET: Not attempted due to medical condition or safety concerns CODE: 88 WALK 10 FEET UNEVEN: Not attempted due to medical condition or safety concerns CODE: 88 1 STEP (CURB): Not attempted due to medical condition or safety concerns CODE: 88 PICKING UP OBJECT: Not attempted due to medical condition or safety concerns CODE: 88 DOES THE PATIENT USE A WHEELCHAIR/SCOOTER? Q1. DOES THE PATIENT USE A WHEELCHAIR/SCOOTER?: Yes CODE: 1 WHEEL 50 FEET WITH TWO TURNS: WHEEL 50 FEET WITH TWO TURNS - STEP 1: Does the patient complete the activity by him/herself with no assistance (physical, verbal/nonverbal cueing, setup/clean-up)? No. WHEEL 50 FEET WITH TWO TURNS - STEP 2: Does the patient need only setup/clean-up assistance from one helper? Yes. 1. [id number] ADMISSION PERFORMANCE: Setup or clean-up assistance CODE: 05 INDICATE THE TYPE OF WHEELCHAIR/SCOOTER USED: RR1. INDICATE THE TYPE OF WHEELCHAIR/SCOOTER USED.: Manual CODE: 1 WHEEL 150 FEET: WHEEL 150 FEET - STEP 1: Does the patient complete the activity by him/herself with no assistance (physical, verbal/nonverbal cueing, setup/clean-up)? No. WHEEL 150 FEET - STEP 2: Does the patient need only setup/clean-up assistance from one helper? Yes. 1. [id number] ADMISSION PERFORMANCE: Setup or clean-up assistance CODE: 05 INDICATE THE TYPE OF WHEELCHAIR/SCOOTER USED: SS1. INDICATE THE TYPE OF WHEELCHAIR/SCOOTER USED.: Manual CODE: 1 BLADDER AND BOWEL: CODE: EXPR CODE: EXPR SIGNATURE PANEL: The following modified sections: 1. [id number] Admission Performance, 1. [id number] Admission Performance, 1. [id number] Admission Performance, 1. [id number] Admission Performance, 1. [id number] Admission Performance, 1. [id number] Admission Performance, 1. [id number] Admission Performance, Q1. Does the patient use a wheel chair/scooter?, 1. [id number] Admission Performance, RR1. Indicate the type of wheelchair/scooter used., 1. [id number] Admission Performance, Code, SS1. Indicate the type of wheelchair/scooter used. were [jer ctronically] signed by Aris Fenton PTA on SatAug 03 2019 08:56:08 GMT-0600 (Central Standard Time)
--- NOTE | 2019-08-03 16:35 | P.PN ---
Date of Service: 08/03/19 Vital Signs Temp Pulse Resp BP Pulse Ox 97.5 F 77 16 141/65 H 94 08/03/19 07:35 08/03/19 08:47 08/03/19 13:18 08/03/19 08:47 08/03/19 13:18 Medications Acetaminophen (Tylenol -Extra Strength) 500 mg PO Q4H PRN PRN Reason: Pain scale 2-4 (Mild) Stop: 08/21/19 10:31 Last Admin: 07/28/19 19:11 Dose: 500 mg Hydrocodone Bitart/Acetaminophen ([place] 5/325) 1 tab PO Q4H PRN PRN Reason: Pain scale 5-7 (Moderate) Stop: 08/27/19 18:02 Last Admin: 08/03/19 12:18 Dose: 1 tab Albuterol Sulfate (Proventil 0.083% Neb Soln) 2.5 mg NEB [id number] [facility] Stop: 08/20/19 20:01 Last Admin: 08/03/19 14:00 Dose: Not Given Atorvastatin Calcium (Lipitor) 40 mg PO BEDTIME [facility] Stop: 08/20/19 21:01 Last Admin: 08/02/19 19:53 Dose: 40 mg Calcium Acetate (Phoslo) 2,001 mg PO TIDWM [facility] Stop: 08/21/19 08:01 Last Admin: 08/03/19 11:50 Dose: 2,001 mg Cyanocobalamin (Vitamin B-12) 2,000 mcg PO DAILY [facility] Stop: 08/21/19 08:01 Last Admin: 08/03/19 08:46 Dose: 2,000 mcg Doxazosin Mesylate (Cardura) 2 mg PO BID PRN PRN Reason: Titrate to SBP (MUST DEFINE) Stop: 08/20/19 20:01 Duloxetine HCl (Cymbalta Delayed Release Pellets) 20 mg PO DAILY [facility] Stop: 08/27/19 08:01 Last Admin: 08/03/19 08:46 Dose: 20 mg Ferrous Sulfate (Feosol) 325 mg PO DAILY [facility] Stop: 08/30/19 08:01 Last Admin: 08/03/19 08:46 Dose: 325 mg Gabapentin (Neurontin) 100 mg PO DAILY [facility] Stop: 08/28/19 08:01 Last Admin: 08/03/19 08:47 Dose: 100 mg Guaifenesin (Robitussin 100mg/5ml) 100 mg PO QID PRN PRN Reason: COUGH Stop: 08/25/19 10:27 Last Admin: 08/02/19 16:39 Dose: 100 mg Heparin Sodium (Porcine) (Heparin 1,000 Units/Ml) 2,000 unit IV EVERY HD [facility] Stop: 08/08/19 11:01 Last Admin: 08/03/19 15:16 Dose: 2,000 unit Home Med (Home Med) 0 ea PO BEDTIME PRN PRN PRN Reason: INSOMNIA Stop: 08/20/19 19:01 Home Med (Home Med) 0 ea PO Cristina@0800 [facility] Stop: 08/25/19 08:01 Last Admin: 08/02/19 08:05 Dose: 1 ea Home Med (Home Med) 0 ea PO DAILY [facility] Stop: 08/21/19 08:01 Last Admin: 08/03/19 08:44 Dose: 1 ea Home Med (Home Med) 0 ea PO DAILY [facility] Stop: 08/21/19 08:01 Last Admin: 08/03/19 08:45 Dose: 1 ea Home Med (Home Med) 0 ea PO DAILY [facility] Stop: 08/21/19 08:01 Last Admin: 08/03/19 08:43 Dose: 1 ea Home Med (Home Med) 0 ea PO DAILY [facility] Stop: 08/21/19 08:01 Last Admin: 08/03/19 08:44 Dose: 1 ea Albumin Human (Albumin 25%) 50 mls @ 100 mls/hr IV EVERY HD [facility] Stop: 08/21/19 12:01 Last Admin: 07/29/19 15:58 Dose: 50 mls Ipratropium [place] (Atrovent Neb) 0.5 mg NEB [id number] [facility] Stop: 08/20/19 20:01 Last Admin: 08/03/19 14:00 Dose: Not Given Levetiracetam (Keppra Tab) 500 mg PO BID [facility] Stop: 08/20/19 20:01 Last Admin: 08/03/19 08:47 Dose: 500 mg Lidocaine (Aspercreme 4% Patch) 2 patch TOP DAILY [facility] Stop: 08/22/19 08:01 Last Admin: 08/03/19 08:46 Dose: 2 patch Loratadine (Claritin) 10 mg PO DAILY [facility] Stop: 08/21/19 08:01 Last Admin: 08/03/19 08:47 Dose: 10 mg Mannitol (Mannitol 12.5 Gm/50 Ml Vial) 12.5 gm IV EVERY HD PRN PRN Reason: Titrate to SBP (MUST DEFINE) Stop: 08/21/19 11:39 Metoprolol Succinate (Toprol Xl) 25 mg PO BID [facility] Stop: 08/30/19 08:01 Last Admin: 08/03/19 08:47 Dose: 25 mg Multivitamins/Iron (Hemocyte Plus) 1 tab PO DAILY WITH BREAKFAST [facility] Stop: 08/30/19 08:01 Last Admin: 08/03/19 08:46 Dose: 1 tab Nutritional Formula (Promod Liquid Protein) 30 ml PO BID [facility] Stop: 08/23/19 08:01 Last Admin: 08/03/19 08:00 Dose: Not Given Polyethylene Glycol (Glycolax) 17 gm PO DAILY PRN PRN Reason: CONSTIPATION Stop: 08/20/19 18:44 Ranitidine HCl (Zantac) 150 mg PO DAILY [facility] Stop: 08/21/19 08:01 Last Admin: 08/03/19 08:46 Dose: 150 mg Triamcinolone Acetonide (Kenalog 0.1% Cream) 1 appl TOP BID PRN PRN Reason: RASH Stop: 08/20/19 19:05 Warfarin Sodium (Coumadin) 2 mg PO DAILY 5 PM [facility] Stop: 08/21/19 17:01 Last Admin: 08/02/19 16:40 Dose: 2 mg Warfarin Sodium (Coumadin) 2.5 mg PO DAILY 5 PM [facility] Stop: 08/21/19 17:01 Last Admin: 08/02/19 16:40 Dose: 2.5 mg Lab Results (last 24 hrs) 08/03/19 05:47: Sodium 138, Potassium 4.0, Chloride 105, Carbon Dioxide 27, BUN 52 H, Creatinine 7.01 H*, Estimated GFR 8 L, Glucose 88, Calcium 9.2 08/03/19 05:47: PT 25.4 H, INR 2.22 Assessment/ Plan: Nephrology Doing well. Feeling better today after his shower. Feeling better today. CPS stable without CP or SOB. No acute events overnight. Vitals, medications, blood work and imaging reviewed in the chart. General: In no apparent distress, Oriented x3, Cooperative HEENT: Atraumatic, Mucous membr. moist/pink Neck: Supple Respiratory: Clear to auscultation bilaterally, Normal air movement Cardiovascular: Regular rate/rhythm, No rubs, Edema Gastrointestinal: Soft and benign, Non-distended Musculoskeletal: No clubbing, No contractures Integumentary: No rashes, No significant lesion, No cyanosis Neurological: Normal speech Laboratory Data (last 24 hrs) 07/23/19 06:17: Sodium 137, Potassium 4.2, BUN 48 H D, Creatinine 7.32 H* D, Glucose 94, Magnesium 2.4 07/23/19 06:17: WBC 10.2, Hgb 11.0 L, Hct 32.2 L, Plt Count 229 07/23/19 06:17: PT 21.6 H, INR 1.88 Imagings Data: EXAM DESCRIPTION: Sera Single View07/16/2019 4:25 pm CLINICAL HISTORY: Chest pain COMPARISON: July 15 FINDINGS: Old left rib fractures Lungs appear clear of acute infiltrate The heart is mildly enlarged IMPRESSION: No acute abnormality displayed Conclusions/Impression: A/ ESRD on HD. Possible recirculation of AVF? Hyperkalemia. Diastolic CHF, chronic. 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 Anemia in CKD. PRASANNA/ Secondary HyperPTH. Paroxysmal Afib. Toxic Metabolic Encephalopathy. P/ Continue current POC and Medications. Arrange for acute HD today. AVF ultrasound negative for abnormality. Encourage nutrition. PT as tolerated. AM labs. Daily weight. No NSAIDs. Possible discharge soon to [facility].
--- NOTE | 2019-08-03 18:01 | R.PN ---
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 Pt denied any depression. He denies pain. He performed therapeutic exercises with minimum assistance. He required maximum alee tance tor functional transfers. WBC 12.9, neutrophils 75%. Will repeat in the AM. INR 2.22 today. Creatine is 7.01, and BUN is 52. Ph osphorus is normal at 8.6. He will have hemodialysis later today. He has left hip pain after a recent fall. MRI of the left hip shows chronic post surgical changes wit h orthopedic hardware in place. No acute fracture. Examination of his left thigh where he impacted after falling reveals dysesthesia in the left lateral femoral cutaneous distribution. This finding is consistent with left meralgia paresthetica. VITAL SIGNS Temperature: 97.5 F SBP/DBP: 141/65 Pulse: 77 Resp: 15 MEDICATION ALLERGIES: Codeine Morphine ENVIRONMENTAL ALLERGIES: None Known - Substance Allergies None Known - Other Allergies Adhesive Tape NURSING: - Shower allowing shower - Lab Results blood Sugar Check ACHS ACTIVITIES OOB only with supervision THERAPIES: - Dietary and Nutrition Adequate Nutrition. Nutritional Education. Nutritional Supplements. PHYSICAL EXAM - Gen Alert and awake Lying in bed No apparent distress Oriented to: person, time, and place - Skin No skin breakdown. Normacephalic - Eyes No abnormalities - ENMT No abnormalities - Neck No abnormalities - CVS RRR - Chest Mildly decreased breath sounds bilaterally. - Abd Soft - GI + bowel sounds Deferred - Little urine production. On hemodialysis three times weekly. - Ext Mild bilateral lower extremity edema. - MSK 4+/5 weakness in both lower extremities. - Neuro No focal deficits - Psych No abnormalities ASSESSMENT: Pt. is a 84 yo Right-handed white male.On 07/16/2019 he was admitted to [facility] with diagnosis ESRD.His impairment category is Debility 16 - Debility (16).Pre-morbidly, Pt. was independent/mod-I in Locomotion, Safety Awareness, Balance, Social Cognition, Transfers Control, Sph incter Control, Self-Care, Communication, and Endurance; and he had good Locomotion, Safety Awareness , Balance, Social Cognition, Transfers Control, Sphincter Control, Communication, Self-Care, and Endu junior.Currently, he has deficits of Locomotion, Safety Awareness, Social Cognition, Balance, Transfer s Control, Sphincter Control, Self-Care, Communication, and Endurance.Pt. is now referred to [facility] for acute in-patient rehabilitation in order to maximize patient's function al independence in activities of daily living, strength, ROM, and mobility.- Rehab Goal Patient has realistic goal of being discharged at assistance level 6-Gisselle to reside at Home with Fam connie/Relatives. MDM/PLAN: - Physical Therapy Gait dysfunction - to improve, our physical therapists will perform initial evaluation of pt's statu s upon admission and devise an individualized program for Gait Training, and Wheel Chair mobility Inability to transfer - to improve, our physical therapists will perform initial evaluation of pt's status upon admission and devise an individualized program for Bed mobility Need for home safety evaluation - to improve, our physical therapists will perform initial evaluatio n of pt's status upon admission and devise an individualized program for Home Evaluation Need in caregiver upon discharge - to improve, our physical therapists will perform initial evaluati on of pt's status upon admission and devise an individualized program for Caregiver Training New precaution - to improve, our physical therapists will perform initial evaluation of pt's status upon admission and devise an individualized program for Patient precaution education Edema - to improve, our physical therapists will perform initial evaluation of pt's status upon admi ssion and devise an individualized program for Elevation Training, and Lymphedema Therapy Poor balance - to improve, our physical therapists will perform initial evaluation of pt's status up on admission and devise an individualized program for Balance Training Poor endurance - to improve, our physical therapists will perform initial evaluation of pt's status upon admission and devise an individualized program for Endurance Training Weakness - to improve, our physical therapists will perform initial evaluation of pt's status upon a dmission and devise an individualized program for Aquatic Therapy, Neuromuscular Reeducation, and Str engthening Achieving independence - to improve, our physical therapists will perform initial evaluation of pt's status upon admission and devise an individualized program for Community Reintegration Activities - Occupational Therapy ADL deficits - to improve, our occupation therapists will perform initial evaluation of pt's status upon admission and devise an individualized program for Bathing, Bed mobility, Community Reintegratio n, Cooking, Dressing, Eating, Fine Motor Skills, Grooming, Homemaking, Kitchen Mobility, Laundry, Pat ient Education, Safety Awareness, Splinting - Positioning, Transfers(Toilet, Tub, Shower), and Wheel Chair Management Cognitive deficits - to improve, our occupation therapists will perform initial evaluation of pt's s tatus upon admission and devise an individualized program for Cognition - orientation Need for caregivers homecare - to improve, our occupation therapists will perform initial evaluation of pt's status upon admission and devise an individualized program for Caregiver Training Weakness - to improve, our occupation therapists will perform initial evaluation of pt's status upon admission and devise an individualized program for Aquatic Therapy, Balance, Endurance, UE ROM, and UE strengthening - Other See attached MAR (Medication Administration Record) - Diet Type Continue Regular - Diet - Liquid Texture Continue Regular - Tube Feed Continue N/A - Lab Results blood Sugar Check ACHS - Diet - Solid Texture Continue Regular - Shower allowing shower FUNCTIONAL STATUS: UPDATED AT WEEKLY TEAM CONFERENCE - Bladder Same accident frequency: 7-Ind - No accidents in the past 7 days - Bowel Same accident frequency: 7-Ind - No accidents in the past 7 days - Walking Same score based on distance walked: 1(<=50ft) - Wheelchair Same score based on distance traveled: 0(N/A) FUNCTIONAL STATUS: - Self-Care A. Eating sup B. Grooming Gisselle C. Bathing maxA D. Dressing - Upper modA E. Dressing - Lower maxA F. Toileting maxA - Sphincter Control G. Bladder control Dep H. Bowel control Levi - Transfers Control I. Bed/Chair/Wheelchair maxA J. Toilet maxA K. Tub/Shower maxA - Locomotion L. Walk/Wheelchair (B) modA M. Stairs ADNO - Communication N. Comprehension (B) Gisselle O. Expression (B) Gisselle - Social Cognition P. Social Interaction Ind Q. Problem Solving Gisselle R. Memory Gisselle - Endurance Good - Balance Good - Safety Awareness Good QI SCORES: - Self-Care A. Eating 04-Supervision or touching assistance B. Oral hygiene 04-Supervision or touching assistance C. Toileting hygiene 03-Partial/moderate assistance E. Shower/bathe self 03-Partial/moderate assistance F. Upper body dressing 03-Partial/moderate assistance G. Lower body dressing 02-Substantial/maximal assistance H. Putting on/taking off footwear 02-Substantial/maximal assistance - Mobility A. Roll left and right 03-Partial/moderate assistance B. Sit to lying 02-Substantial/maximal assistance C. Lying to sitting on side of bed 02-Substantial/maximal assistance D. Sit to stand 03-Partial/moderate assistance E. Chair/[id number] transfer 03-Partial/moderate assistance F. Toilet transfer 03-Partial/moderate assistance G. Car transfer 88-Not attempted due to medical condition or safety concerns I. Walk 10 feet 02-Substantial/maximal assistance J. Walk 50 feet with two turns 88-Not attempted due to medical condition or safety concerns K. Walk 150 feet 88-Not attempted due to medical condition or safety concerns L. Walking 10 feet on uneven surfaces 88-Not attempted due to medical condition or safety concerns M. 1 step (curb) 88-Not attempted due to medical condition or safety concerns N. 4 steps 88-Not attempted due to medical condition or safety concerns O. 12 steps 88-Not attempted due to medical condition or safety concerns P. Picking up object 88-Not attempted due to medical condition or safety concerns R. Wheel 50 feet with two turns 88-Not attempted due to medical condition or safety concerns S. Wheel 150 feet 88-Not attempted due to medical condition or safety concerns - Bladder and Bowel Bladder continence 5-No urine output Bowel continence 0-Always continent - Endurance Poor - Balance Poor - Safety Awareness Fair CURRENT FUNC. DEFICITS: Self-Care, Mobility, Endurance, Balance, and Safety Awareness SIGNATURE PANEL: (SOFTWARE RECRUITER)
[2019-08-03] MEDS: WARFARIN SODIUM 2 MG TAB PO SCH (19:12)
[2019-08-03] MEDS: WARFARIN SODIUM 2.5 MG TAB PO SCH (19:12)
[2019-08-03] MEDS: ATORVASTATIN 40 MG TAB PO SCH (19:13)
[2019-08-04] MEDS: IPRATROPIUM BROM 0.5MG/2.5ML NEB SCH ×4 (01:50→20:40)
[2019-08-04] MEDS: ALBUTEROL 2.5 MG/3 ML NEB SOL NEB SCH ×4 (01:50→20:40)
[2019-08-04 05:51] VITALS: BMI 30.8
[2019-08-04 06:30] LABS: Protime INR 1.91
[2019-08-04] MEDS: LIDOCAINE 4% PATCH TOP SCH (08:00)
[2019-08-04] MEDS: FERROUS SULFATE 325 MG TAB PO SCH (08:35)
[2019-08-04] MEDS: CA ACETATE 667 MG CAP PO SCH ×3 (08:35→17:16)
[2019-08-04] MEDS: RANITIDINE 150 MG TABLET PO SCH (08:36)
[2019-08-04] MEDS: DULOXETINE 20 MG CAP PO SCH (08:36)
[2019-08-04] MEDS: GABAPENTIN 100 MG CAP PO SCH (08:36)
[2019-08-04] MEDS: LORATADINE 10 MG TAB PO SCH (08:36)
[2019-08-04] MEDS: levETIRAcetam 500 MG TAB PO SCH ×2 (08:37→19:52)
[2019-08-04] MEDS: METOPROLOL XL 50 MG TAB PO SCH ×2 (08:37→19:53)
[2019-08-04] MEDS: FE SULF/FA/VIT B COMP & C TAB PO SCH (08:37)
[2019-08-04] MEDS: CYANOCOBALAMIN 1,000 MCG TAB PO SCH (08:37)
[2019-08-04] MEDS: PROMOD 30 ML DOSE PO SCH ×2 (08:38→19:54)
[2019-08-04] MEDS: [UNRECOGNIZED DRUG - OTHER] PO SCH (08:39)
[2019-08-04] MEDS: LYSINE 500 MG PO SCH (08:40)
[2019-08-04] MEDS: RENA VITE PO SCH (08:40)
[2019-08-04] MEDS: ULORIC 80 MG PO SCH (08:41)
[2019-08-04] MEDS: WARFARIN SODIUM 2.5 MG TAB PO SCH (17:16)
[2019-08-04] MEDS: WARFARIN SODIUM 2 MG TAB PO SCH (17:16)
[2019-08-04] MEDS: guaiFENesin 100 MG/5 ML UCUP PO PRN (19:52)
[2019-08-04] MEDS: ATORVASTATIN 40 MG TAB PO SCH (19:52)
[2019-08-05] MEDS: ALBUTEROL 2.5 MG/3 ML NEB SOL NEB SCH ×4 (01:50→20:35)
[2019-08-05] MEDS: IPRATROPIUM BROM 0.5MG/2.5ML NEB SCH ×4 (01:50→20:35)
[2019-08-05 06:52] LABS: Protime INR 1.88
[2019-08-05] MEDS: FERROUS SULFATE 325 MG TAB PO SCH (07:36)
[2019-08-05] MEDS: LIDOCAINE 4% PATCH TOP SCH (07:36)
[2019-08-05] MEDS: RANITIDINE 150 MG TABLET PO SCH (07:36)
[2019-08-05] MEDS: GABAPENTIN 100 MG CAP PO SCH (07:36)
[2019-08-05] MEDS: DULOXETINE 20 MG CAP PO SCH (07:36)
[2019-08-05] MEDS: guaiFENesin 100 MG/5 ML UCUP PO PRN (07:36)
[2019-08-05] MEDS: LORATADINE 10 MG TAB PO SCH (07:37)
[2019-08-05] MEDS: FE SULF/FA/VIT B COMP & C TAB PO SCH (07:37)
[2019-08-05] MEDS: CYANOCOBALAMIN 1,000 MCG TAB PO SCH (07:37)
[2019-08-05] MEDS: CA ACETATE 667 MG CAP PO SCH ×4 (07:37→19:54)
[2019-08-05] MEDS: HYDROCODONE/APAP 5/325 MG TAB PO PRN (07:37)
[2019-08-05] MEDS: levETIRAcetam 500 MG TAB PO SCH ×2 (07:37→19:54)
[2019-08-05] MEDS: PROMOD 30 ML DOSE PO SCH (07:38)
[2019-08-05] MEDS: LYSINE 500 MG PO SCH (07:38)
[2019-08-05] MEDS: ULORIC 80 MG PO SCH (07:39)
[2019-08-05] MEDS: RENA VITE PO SCH (07:39)
[2019-08-05] MEDS: [UNRECOGNIZED DRUG - OTHER] PO SCH (07:40)
--- NOTE | 2019-08-05 07:58 | EKG ---
Test Date: 2019-08-03 Test Time: 23:19:26 Residence Manager: RT Winston MEASUREMENT RESULTS: Intervals: Rate: 73 OK: 298 QRSD: 190 QT: 458 QTc: 504 [place]: P: 17 OK: 298 QRS: -61 T: 29 INTERPRETIVE STATEMENTS: Sinus rhythm with 1st degree AV block Right bundle branch block Left anterior fascicular block Bifascicular block Abnormal ECG Compared to ECG 07/15/2019 07:28:43 Bifascicular block still present Electronically Signed On 08-05-19 07:58:00 CARDIOTHORACIC PHYSIOTHERAPIST by Ramin Hunter
[2019-08-05] MEDS: METOPROLOL XL 50 MG TAB PO SCH ×2 (08:00→19:55)
--- NOTE | 2019-08-05 16:27 | FAST ---
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 Gamal Lafleur M.D. ADMISSION DIAGNOSIS: - Debility 16 - Debility (16) ESRD. EATING: Not assessed/no information CODE: - ORAL HYGIENE: ORAL HYGIENE - STEP 1: Does the patient complete the activity by him/herself with no assistance (physical, verbal/nonverbal cueing, setup/clean-up)? Yes. 1. [id number] ADMISSION PERFORMANCE: Independent CODE: 06 TOILETING HYGIENE: Not assessed/no information CODE: - BATHING: SHOWER/BATHE SELF - STEP 1: Does the patient complete the activity by him/herself with no assistance (physical, verbal/nonverbal cueing, setup/clean-up)? No. SHOWER/BATHE SELF - STEP 2: Does the patient need only setup/clean-up assistance from one helper? No. SHOWER/BATHE SELF - STEP 3: Does the patient need only verbal/nonverbal cueing or touching/steadying/contact guard assistance fro m one helper? Yes. 1. [id number] ADMISSION PERFORMANCE: Supervision or touching assistance CODE: 04 DRESSING - UPPER BODY: DRESSING - UPPER BODY - STEP 1: Does the patient complete the activity by him/herself with no assistance (physical, verbal/nonverbal cueing, setup/clean-up)? Yes. 1. [id number] ADMISSION PERFORMANCE: Independent CODE: 06 DRESSING - LOWER BODY: DRESSING - LOWER BODY - STEP 1: Does the patient complete the activity by him/herself with no assistance (physical, verbal/nonverbal cueing, setup/clean-up)? No. DRESSING - LOWER BODY - STEP 2: Does the patient need only setup/clean-up assistance from one helper? No. DRESSING - LOWER BODY - STEP 3: Does the patient need only verbal/nonverbal cueing or touching/steadying/contact guard assistance fro m one helper? No. DRESSING - LOWER BODY - STEP 4: Does the patient need physical assistance - for example lifting or trunk support from one helper - wi th the helper providing less than half of the effort? Yes. 1. [id number] ADMISSION PERFORMANCE: Partial/moderate assistance CODE: 03 PUTTING ON/TAKING OFF FOOTWEAR: FOOTWEAR - STEP 1: Does the patient complete the activity by him/herself with no assistance (physical, verbal/nonverbal cueing, setup/clean-up)? No. FOOTWEAR - STEP 2: Does the patient need only setup/clean-up assistance from one helper? No. FOOTWEAR - STEP 3: Does the patient need only verbal/nonverbal cueing or touching/steadying/contact guard assistance fro m one helper? No. FOOTWEAR - STEP 4: Does the patient need physical assistance - for example lifting or trunk support from one helper - wi th the helper providing less than half of the effort? No. FOOTWEAR - STEP 5: Does the patient need physical assistance - for example lifting or trunk support from one helper - wi th the helper providing more than half of the effort? Yes. 1. [id number] ADMISSION PERFORMANCE: Substantial/maximal assistance CODE: 02 DOES THE PATIENT USE A WHEELCHAIR/SCOOTER? CODE: EXPR INDICATE THE TYPE OF WHEELCHAIR/SCOOTER USED: CODE: EXPR INDICATE THE TYPE OF WHEELCHAIR/SCOOTER USED: CODE: EXPR BLADDER AND BOWEL: CODE: EXPR CODE: EXPR SIGNATURE PANEL: The following modified sections: 1. [id number] Admission Performance, 1. [id number] Admission Performance, 1. [id number] Admission Performance, 1. [id number] Admission Performance, 1. [id number] Admission Performance, 1. [id number] Admission Performance were [electronically] signed by EDITH Cox on SatAug 05 2019 16:25:48 GMT-0600 (Central Standard Time)
[2019-08-05] MEDS: WARFARIN SODIUM 2 MG TAB PO SCH (17:00)
[2019-08-05] MEDS: WARFARIN SODIUM 2.5 MG TAB PO SCH (17:00)
--- NOTE | 2019-08-05 17:03 | R.PN ---
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 Pt denied any depression. He denies pain. He performed therapeutic exercises with minimum assistance. He required maximum alee tance tor functional transfers. WBC 12.9, neutrophils 75%. Will repeat in the AM. INR 2.22 today. Creatine is 7.01, and BUN is 52. Ph osphorus is normal at 8.6. He will have hemodialysis later today. He has left hip pain after a recent fall. MRI of the left hip shows chronic post surgical changes wit h orthopedic hardware in place. No acute fracture. Examination of his left thigh where he impacted after falling reveals dysesthesia in the left lateral femoral cutaneous distribution. This finding is consistent with left meralgia paresthetica. He had 2 rounds of diarrhea after getting promod 30 ml twice. Promod will be discontinued. INR is 1.8 8. Coumadin dosage will be increased to 5 mg daily from 4.5 mg daily. VITAL SIGNS Temperature: 97.5 F SBP/DBP: 108/53 Pulse: 66 Resp: 16 MEDICATION ALLERGIES: Codeine Morphine ENVIRONMENTAL ALLERGIES: None Known - Substance Allergies None Known - Other Allergies Adhesive Tape NURSING: - Shower allowing shower - Lab Results blood Sugar Check ACHS ACTIVITIES OOB only with supervision THERAPIES: - Dietary and Nutrition Adequate Nutrition. Nutritional Education. Nutritional Supplements. PHYSICAL EXAM - Gen Alert and awake Lying in bed No apparent distress Oriented to: person, time, and place - Skin No skin breakdown. Normacephalic - Eyes No abnormalities - ENMT No abnormalities - Neck No abnormalities - CVS RRR - Chest Mildly decreased breath sounds bilaterally. - Abd Soft - GI + bowel sounds Deferred - Little urine production. On hemodialysis three times weekly. - Ext Mild bilateral lower extremity edema. - MSK 4+/5 weakness in both lower extremities. - Neuro No focal deficits - Psych No abnormalities ASSESSMENT: Pt. is a 84 yo Right-handed white male.On 07/16/2019 he was admitted to [facility] with diagnosis ESRD.His impairment category is Debility 16 - Debility (16).Pre-morbidly, Pt. was independent/mod-I in Locomotion, Safety Awareness, Balance, Social Cognition, Transfers Control, Sph incter Control, Self-Care, Communication, and Endurance; and he had good Locomotion, Safety Awareness , Balance, Social Cognition, Transfers Control, Sphincter Control, Communication, Self-Care, and Endu junior.Currently, he has deficits of Locomotion, Safety Awareness, Social Cognition, Balance, Transfer s Control, Sphincter Control, Self-Care, Communication, and Endurance.Pt. is now referred to [facility] for acute in-patient rehabilitation in order to maximize patient's function al independence in activities of daily living, strength, ROM, and mobility.- Rehab Goal Patient has realistic goal of being discharged at assistance level 6-Gisselle to reside at Home with Fam connie/Relatives. MDM/PLAN: - Physical Therapy Gait dysfunction - to improve, our physical therapists will perform initial evaluation of pt's statu s upon admission and devise an individualized program for Gait Training, and Wheel Chair mobility Inability to transfer - to improve, our physical therapists will perform initial evaluation of pt's status upon admission and devise an individualized program for Bed mobility Need for home safety evaluation - to improve, our physical therapists will perform initial evaluatio n of pt's status upon admission and devise an individualized program for Home Evaluation Need in caregiver upon discharge - to improve, our physical therapists will perform initial evaluati on of pt's status upon admission and devise an individualized program for Caregiver Training New precaution - to improve, our physical therapists will perform initial evaluation of pt's status upon admission and devise an individualized program for Patient precaution education Edema - to improve, our physical therapists will perform initial evaluation of pt's status upon admi ssion and devise an individualized program for Elevation Training, and Lymphedema Therapy Poor balance - to improve, our physical therapists will perform initial evaluation of pt's status up on admission and devise an individualized program for Balance Training Poor endurance - to improve, our physical therapists will perform initial evaluation of pt's status upon admission and devise an individualized program for Endurance Training Weakness - to improve, our physical therapists will perform initial evaluation of pt's status upon a dmission and devise an individualized program for Aquatic Therapy, Neuromuscular Reeducation, and Str engthening Achieving independence - to improve, our physical therapists will perform initial evaluation of pt's status upon admission and devise an individualized program for Community Reintegration Activities - Occupational Therapy ADL deficits - to improve, our occupation therapists will perform initial evaluation of pt's status upon admission and devise an individualized program for Bathing, Bed mobility, Community Reintegratio n, Cooking, Dressing, Eating, Fine Motor Skills, Grooming, Homemaking, Kitchen Mobility, Laundry, Pat ient Education, Safety Awareness, Splinting - Positioning, Transfers(Toilet, Tub, Shower), and Wheel Chair Management Cognitive deficits - to improve, our occupation therapists will perform initial evaluation of pt's s tatus upon admission and devise an individualized program for Cognition - orientation Need for acute care nurse - to improve, our occupation therapists will perform initial evaluation of pt's status upon admission and devise an individualized program for Caregiver Training Weakness - to improve, our occupation therapists will perform initial evaluation of pt's status upon admission and devise an individualized program for Aquatic Therapy, Balance, Endurance, UE ROM, and UE strengthening - Other See attached MAR (Medication Administration Record) - Diet Type Continue Regular - Diet - Liquid Texture Continue Regular - Tube Feed Continue N/A - Lab Results blood Sugar Check ACHS - Diet - Solid Texture Continue Regular - Shower allowing shower FUNCTIONAL STATUS: UPDATED AT WEEKLY TEAM CONFERENCE - Bladder Same accident frequency: 7-Ind - No accidents in the past 7 days - Bowel Same accident frequency: 7-Ind - No accidents in the past 7 days - Walking Same score based on distance walked: 1(<=50ft) - Wheelchair Same score based on distance traveled: 0(N/A) FUNCTIONAL STATUS: - Self-Care A. Eating sup B. Grooming Gisselle C. Bathing maxA D. Dressing - Upper modA E. Dressing - Lower maxA F. Toileting maxA - Sphincter Control G. Bladder control Dep H. Bowel control Levi - Transfers Control I. Bed/Chair/Wheelchair maxA J. Toilet maxA K. Tub/Shower maxA - Locomotion L. Walk/Wheelchair (B) modA M. Stairs ADNO - Communication N. Comprehension (B) Gisselle O. Expression (B) Gisselle - Social Cognition P. Social Interaction Ind Q. Problem Solving Gisselle R. Memory Gisselle - Endurance Good - Balance Good - Safety Awareness Good QI SCORES: - Self-Care A. Eating 04-Supervision or touching assistance B. Oral hygiene 04-Supervision or touching assistance C. Toileting hygiene 03-Partial/moderate assistance E. Shower/bathe self 03-Partial/moderate assistance F. Upper body dressing 03-Partial/moderate assistance G. Lower body dressing 02-Substantial/maximal assistance H. Putting on/taking off footwear 02-Substantial/maximal assistance - Mobility A. Roll left and right 03-Partial/moderate assistance B. Sit to lying 02-Substantial/maximal assistance C. Lying to sitting on side of bed 02-Substantial/maximal assistance D. Sit to stand 03-Partial/moderate assistance E. Chair/[id number] transfer 03-Partial/moderate assistance F. Toilet transfer 03-Partial/moderate assistance G. Car transfer 88-Not attempted due to medical condition or safety concerns I. Walk 10 feet 02-Substantial/maximal assistance J. Walk 50 feet with two turns 88-Not attempted due to medical condition or safety concerns K. Walk 150 feet 88-Not attempted due to medical condition or safety concerns L. Walking 10 feet on uneven surfaces 88-Not attempted due to medical condition or safety concerns M. 1 step (curb) 88-Not attempted due to medical condition or safety concerns N. 4 steps 88-Not attempted due to medical condition or safety concerns O. 12 steps 88-Not attempted due to medical condition or safety concerns P. Picking up object 88-Not attempted due to medical condition or safety concerns R. Wheel 50 feet with two turns 88-Not attempted due to medical condition or safety concerns S. Wheel 150 feet 88-Not attempted due to medical condition or safety concerns - Bladder and Bowel Bladder continence 5-No urine output Bowel continence 0-Always continent - Endurance Poor - Balance Poor - Safety Awareness Fair CURRENT FUNC. 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
[2019-08-05] MEDS: ATORVASTATIN 40 MG TAB PO SCH (19:55)
--- NOTE | 2019-08-05 22:07 | R.PN ---
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 Pt denied any depression. He denies pain. He performed therapeutic exercises with minimum assistance. He required maximum alee tance tor functional transfers. WBC 12.9, neutrophils 75%. Will repeat in the AM. INR 2.22 today. Creatine is 7.01, and BUN is 52. Ph osphorus is normal at 8.6. He will have hemodialysis later today. He has left hip pain after a recent fall. MRI of the left hip shows chronic post surgical changes wit h orthopedic hardware in place. No acute fracture. Examination of his left thigh where he impacted after falling reveals dysesthesia in the left lateral femoral cutaneous distribution. This finding is consistent with left meralgia paresthetica. He had 2 rounds of diarrhea after getting promod 30 ml twice. Promod will be discontinued. INR is 1.8 8. Coumadin dosage will be increased to 5 mg daily from 4.5 mg daily. VITAL SIGNS Temperature: 97.5 F SBP/DBP: 110/72 Pulse: 70 Resp: 16 MEDICATION ALLERGIES: Codeine Morphine ENVIRONMENTAL ALLERGIES: None Known - Substance Allergies None Known - Other Allergies Adhesive Tape NURSING: - Shower allowing shower - Lab Results blood Sugar Check ACHS ACTIVITIES OOB only with supervision THERAPIES: - Dietary and Nutrition Adequate Nutrition. Nutritional Education. Nutritional Supplements. PHYSICAL EXAM - Gen Alert and awake Lying in bed No apparent distress Oriented to: person, time, and place - Skin No skin breakdown. Normacephalic - Eyes No abnormalities - ENMT No abnormalities - Neck No abnormalities - CVS RRR - Chest Mildly decreased breath sounds bilaterally. - Abd Soft - GI + bowel sounds Deferred - Little urine production. On hemodialysis three times weekly. - Ext Mild bilateral lower extremity edema. - MSK 4+/5 weakness in both lower extremities. - Neuro No focal deficits - Psych No abnormalities ASSESSMENT: Pt. is a 84 yo Right-handed white male.On 07/16/2019 he was admitted to [facility] with diagnosis ESRD.His impairment category is Debility 16 - Debility (16).Pre-morbidly, Pt. was independent/mod-I in Locomotion, Safety Awareness, Balance, Social Cognition, Transfers Control, Sph incter Control, Self-Care, Communication, and Endurance; and he had good Locomotion, Safety Awareness , Balance, Social Cognition, Transfers Control, Sphincter Control, Communication, Self-Care, and Endu junior.Currently, he has deficits of Locomotion, Safety Awareness, Social Cognition, Balance, Transfer s Control, Sphincter Control, Self-Care, Communication, and Endurance.Pt. is now referred to [facility] for acute in-patient rehabilitation in order to maximize patient's function al independence in activities of daily living, strength, ROM, and mobility.- Rehab Goal Patient has realistic goal of being discharged at assistance level 6-Gisselle to reside at Home with Fam connie/Relatives. MDM/PLAN: - Physical Therapy Gait dysfunction - to improve, our physical therapists will perform initial evaluation of pt's statu s upon admission and devise an individualized program for Gait Training, and Wheel Chair mobility Inability to transfer - to improve, our physical therapists will perform initial evaluation of pt's status upon admission and devise an individualized program for Bed mobility Need for home safety evaluation - to improve, our physical therapists will perform initial evaluatio n of pt's status upon admission and devise an individualized program for Home Evaluation Need in caregiver upon discharge - to improve, our physical therapists will perform initial evaluati on of pt's status upon admission and devise an individualized program for Caregiver Training New precaution - to improve, our physical therapists will perform initial evaluation of pt's status upon admission and devise an individualized program for Patient precaution education Edema - to improve, our physical therapists will perform initial evaluation of pt's status upon admi ssion and devise an individualized program for Elevation Training, and Lymphedema Therapy Poor balance - to improve, our physical therapists will perform initial evaluation of pt's status up on admission and devise an individualized program for Balance Training Poor endurance - to improve, our physical therapists will perform initial evaluation of pt's status upon admission and devise an individualized program for Endurance Training Weakness - to improve, our physical therapists will perform initial evaluation of pt's status upon a dmission and devise an individualized program for Aquatic Therapy, Neuromuscular Reeducation, and Str engthening Achieving independence - to improve, our physical therapists will perform initial evaluation of pt's status upon admission and devise an individualized program for Community Reintegration Activities - Occupational Therapy ADL deficits - to improve, our occupation therapists will perform initial evaluation of pt's status upon admission and devise an individualized program for Bathing, Bed mobility, Community Reintegratio n, Cooking, Dressing, Eating, Fine Motor Skills, Grooming, Homemaking, Kitchen Mobility, Laundry, Pat ient Education, Safety Awareness, Splinting - Positioning, Transfers(Toilet, Tub, Shower), and Wheel Chair Management Cognitive deficits - to improve, our occupation therapists will perform initial evaluation of pt's s tatus upon admission and devise an individualized program for Cognition - orientation Need for daytime caregiver - to improve, our occupation therapists will perform initial evaluation of pt's status upon admission and devise an individualized program for Caregiver Training Weakness - to improve, our occupation therapists will perform initial evaluation of pt's status upon admission and devise an individualized program for Aquatic Therapy, Balance, Endurance, UE ROM, and UE strengthening - Other See attached MAR (Medication Administration Record) - Diet Type Continue Regular - Diet - Liquid Texture Continue Regular - Tube Feed Continue N/A - Lab Results blood Sugar Check ACHS - Diet - Solid Texture Continue Regular - Shower allowing shower FUNCTIONAL STATUS: UPDATED AT WEEKLY TEAM CONFERENCE - Bladder Same accident frequency: 7-Ind - No accidents in the past 7 days - Bowel Same accident frequency: 7-Ind - No accidents in the past 7 days - Walking Same score based on distance walked: 1(<=50ft) - Wheelchair Same score based on distance traveled: 0(N/A) FUNCTIONAL STATUS: - Self-Care A. Eating sup B. Grooming Gisselle C. Bathing maxA D. Dressing - Upper modA E. Dressing - Lower maxA F. Toileting maxA - Sphincter Control G. Bladder control Dep H. Bowel control Levi - Transfers Control I. Bed/Chair/Wheelchair maxA J. Toilet maxA K. Tub/Shower maxA - Locomotion L. Walk/Wheelchair (B) modA M. Stairs ADNO - Communication N. Comprehension (B) Gisselle O. Expression (B) Gisselle - Social Cognition P. Social Interaction Ind Q. Problem Solving Gisselle R. Memory Gisselle - Endurance Good - Balance Good - Safety Awareness Good QI SCORES: - Self-Care A. Eating 04-Supervision or touching assistance B. Oral hygiene 04-Supervision or touching assistance C. Toileting hygiene 03-Partial/moderate assistance E. Shower/bathe self 03-Partial/moderate assistance F. Upper body dressing 03-Partial/moderate assistance G. Lower body dressing 02-Substantial/maximal assistance H. Putting on/taking off footwear 02-Substantial/maximal assistance - Mobility A. Roll left and right 03-Partial/moderate assistance B. Sit to lying 02-Substantial/maximal assistance C. Lying to sitting on side of bed 02-Substantial/maximal assistance D. Sit to stand 03-Partial/moderate assistance E. Chair/nek-so-awaxt transfer 03-Partial/moderate assistance F. Toilet transfer 03-Partial/moderate assistance G. Car transfer 88-Not attempted due to medical condition or safety concerns I. Walk 10 feet 02-Substantial/maximal assistance J. Walk 50 feet with two turns 88-Not attempted due to medical condition or safety concerns K. Walk 150 feet 88-Not attempted due to medical condition or safety concerns L. Walking 10 feet on uneven surfaces 88-Not attempted due to medical condition or safety concerns M. 1 step (curb) 88-Not attempted due to medical condition or safety concerns N. 4 steps 88-Not attempted due to medical condition or safety concerns O. 12 steps 88-Not attempted due to medical condition or safety concerns P. Picking up object 88-Not attempted due to medical condition or safety concerns R. Wheel 50 feet with two turns 88-Not attempted due to medical condition or safety concerns S. Wheel 150 feet 88-Not attempted due to medical condition or safety concerns - Bladder and Bowel Bladder continence 5-No urine output Bowel continence 0-Always continent - Endurance Poor - Balance Poor - Safety Awareness Fair CURRENT FUNC. DEFICITS: Self-Care, Mobility, Endurance, Balance, and Safety Awareness SIGNATURE PANEL: (FOUNDATION ASSISTANT)
--- NOTE | 2019-08-05 22:53 | P.PN ---
Date of Service: 08/05/19 Vital Signs Temp Pulse Resp BP Pulse Ox 97.0 F 71 18 166/71 H 97 08/05/19 20:00 08/05/19 20:00 08/05/19 20:00 08/05/19 20:00 08/05/19 20:00 Medications Acetaminophen (Tylenol -Extra Strength) 500 mg PO Q4H PRN PRN Reason: Pain scale 2-4 (Mild) Stop: 08/21/19 10:31 Last Admin: 07/28/19 19:11 Dose: 500 mg Hydrocodone Bitart/Acetaminophen ([place] 5/325) 1 tab PO Q4H PRN PRN Reason: Pain scale 5-7 (Moderate) Stop: 08/27/19 18:02 Last Admin: 08/05/19 07:37 Dose: 1 tab Albuterol Sulfate (Proventil 0.083% Neb Soln) 2.5 mg NEB [id number] [facility] Stop: 08/20/19 20:01 Last Admin: 08/05/19 20:35 Dose: 2.5 mg Atorvastatin Calcium (Lipitor) 40 mg PO BEDTIME [facility] Stop: 08/20/19 21:01 Last Admin: 08/05/19 19:55 Dose: 40 mg Calcium Acetate (Phoslo) 2,001 mg PO TIDWM [facility] Stop: 08/21/19 08:01 Last Admin: 08/05/19 19:54 Dose: 2,001 mg Cyanocobalamin (Vitamin B-12) 2,000 mcg PO DAILY [facility] Stop: 08/21/19 08:01 Last Admin: 08/05/19 07:37 Dose: 2,000 mcg Doxazosin Mesylate (Cardura) 2 mg PO BID PRN PRN Reason: Titrate to SBP (MUST DEFINE) Stop: 08/20/19 20:01 Duloxetine HCl (Cymbalta Delayed Release Pellets) 20 mg PO DAILY [facility] Stop: 08/27/19 08:01 Last Admin: 08/05/19 07:36 Dose: 20 mg Ferrous Sulfate (Feosol) 325 mg PO DAILY [facility] Stop: 08/30/19 08:01 Last Admin: 08/05/19 07:36 Dose: 325 mg Gabapentin (Neurontin) 100 mg PO DAILY [facility] Stop: 08/28/19 08:01 Last Admin: 08/05/19 07:36 Dose: 100 mg Guaifenesin (Robitussin 100mg/5ml) 100 mg PO QID PRN PRN Reason: COUGH Stop: 08/25/19 10:27 Last Admin: 08/05/19 07:36 Dose: 100 mg Heparin Sodium (Porcine) (Heparin 1,000 Units/Ml) 2,000 unit IV EVERY HD [facility] Stop: 08/08/19 11:01 Last Admin: 08/03/19 15:16 Dose: 2,000 unit Home Med (Home Med) 0 ea PO BEDTIME PRN PRN PRN Reason: INSOMNIA Stop: 08/20/19 19:01 Home Med (Home Med) 0 ea PO Cristina@0800 [facility] Stop: 08/25/19 08:01 Last Admin: 08/02/19 08:05 Dose: 1 ea Home Med (Home Med) 0 ea PO DAILY [facility] Stop: 08/21/19 08:01 Last Admin: 08/05/19 07:40 Dose: 1 ea Home Med (Home Med) 0 ea PO DAILY [facility] Stop: 08/21/19 08:01 Last Admin: 08/05/19 07:39 Dose: 1 ea Home Med (Home Med) 0 ea PO DAILY [facility] Stop: 08/21/19 08:01 Last Admin: 08/05/19 07:39 Dose: 1 ea Home Med (Home Med) 0 ea PO DAILY [facility] Stop: 08/21/19 08:01 Last Admin: 08/05/19 07:38 Dose: 1 ea Albumin Human (Albumin 25%) 50 mls @ 100 mls/hr IV EVERY HD [facility] Stop: 08/21/19 12:01 Last Admin: 07/29/19 15:58 Dose: 50 mls Ipratropium [place] (Atrovent Neb) 0.5 mg NEB [id number] [facility] Stop: 08/20/19 20:01 Last Admin: 08/05/19 20:35 Dose: 0.5 mg Levetiracetam (Keppra Tab) 500 mg PO BID [facility] Stop: 08/20/19 20:01 Last Admin: 08/05/19 19:54 Dose: 500 mg Lidocaine (Aspercreme 4% Patch) 2 patch TOP DAILY [facility] Stop: 08/22/19 08:01 Last Admin: 08/05/19 07:36 Dose: 2 patch Loratadine (Claritin) 10 mg PO DAILY [facility] Stop: 08/21/19 08:01 Last Admin: 08/05/19 07:37 Dose: 10 mg Mannitol (Mannitol 12.5 Gm/50 Ml Vial) 12.5 gm IV EVERY HD PRN PRN Reason: Titrate to SBP (MUST DEFINE) Stop: 08/21/19 11:39 Metoprolol Succinate (Toprol Xl) 25 mg PO BID [facility] Stop: 08/30/19 08:01 Last Admin: 08/05/19 19:55 Dose: 25 mg Multivitamins/Iron (Hemocyte Plus) 1 tab PO DAILY WITH BREAKFAST [facility] Stop: 08/30/19 08:01 Last Admin: 08/05/19 07:37 Dose: 1 tab Polyethylene Glycol (Glycolax) 17 gm PO DAILY PRN PRN Reason: CONSTIPATION Stop: 08/20/19 18:44 Ranitidine HCl (Zantac) 150 mg PO DAILY [facility] Stop: 08/21/19 08:01 Last Admin: 08/05/19 07:36 Dose: 150 mg Triamcinolone Acetonide (Kenalog 0.1% Cream) 1 appl TOP BID PRN PRN Reason: RASH Stop: 08/20/19 19:05 Warfarin Sodium (Coumadin) 5 mg PO DAILY 5 PM [facility] Stop: 09/05/19 17:01 Lab Results (last 24 hrs) 08/05/19 05:45: PT 21.7 H, INR 1.88 Assessment/ Plan: Nephrology Doing well. CPS stable without CP or SOB. No acute events overnight. Vitals, medications, blood work and imaging reviewed in the chart. General: In no apparent distress, Oriented x3, Cooperative HEENT: Atraumatic, Mucous membr. moist/pink Neck: Supple Respiratory: Clear to auscultation bilaterally, Normal air movement Cardiovascular: Regular rate/rhythm, No rubs, Edema Gastrointestinal: Soft and benign, Non-distended Musculoskeletal: No clubbing, No contractures Integumentary: No rashes, No significant lesion, No cyanosis Neurological: Normal speech Laboratory Data (last 24 hrs) 07/23/19 06:17: Sodium 137, Potassium 4.2, BUN 48 H D, Creatinine 7.32 H* D, Glucose 94, Magnesium 2.4 07/23/19 06:17: WBC 10.2, Hgb 11.0 L, Hct 32.2 L, Plt Count 229 07/23/19 06:17: PT 21.6 H, INR 1.88 Imagings Data: EXAM DESCRIPTION: Sera Single View07/16/2019 4:25 pm CLINICAL HISTORY: Chest pain COMPARISON: July 15 FINDINGS: Old left rib fractures Lungs appear clear of acute infiltrate The heart is mildly enlarged IMPRESSION: No acute abnormality displayed Conclusions/Impression: A/ ESRD on HD. Possible recirculation of AVF? Hyperkalemia. Diastolic CHF, chronic. 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 Anemia in CKD. PRASANNA/ Secondary HyperPTH. Paroxysmal Afib. Toxic Metabolic Encephalopathy. P/ Continue current POC and Medications. Seen and examined on HD today. Encourage nutrition. PT as tolerated. AM labs. Daily weight. No NSAIDs. Possible discharge soon to [facility].
[2019-08-06] MEDS: ALBUTEROL 2.5 MG/3 ML NEB SOL NEB SCH ×3 (01:25→13:05)
[2019-08-06] MEDS: IPRATROPIUM BROM 0.5MG/2.5ML NEB SCH ×4 (01:25→20:00)
[2019-08-06] MEDS: ACETAMINOPHEN 500 MG TAB PO PRN (02:10)
[2019-08-06] MEDS: guaiFENesin 100 MG/5 ML UCUP PO PRN ×3 (03:01→19:11)
[2019-08-06 06:28] LABS: Absolute Lymphocytes (CBC) 0.8 K/uL (0.7-4.9); Basophils % 0.4 % (0-1.3); Hematocrit 24.4 % (39.6-49.0); Lymphocytes % 14.5 % (15.3-44.8); MPV 7.6 fL (7.6-11.3); RBC Red Blood Cell Count 2.63 M/uL (4.33-5.43)
[2019-08-06 07:13] LABS: Protime INR 2.15
[2019-08-06 07:55] LABS: Albumin 2.7 g/dL (3.4-5.0); Potassium 3.6 mmol/L (3.5-5.1); Prealbumin 20.7 mg/dL (20-40)
[2019-08-06] MEDS: levETIRAcetam 500 MG TAB PO SCH ×2 (07:58→19:09)
[2019-08-06] MEDS: LIDOCAINE 4% PATCH TOP SCH (07:58)
[2019-08-06] MEDS: CA ACETATE 667 MG CAP PO SCH ×3 (07:58→16:12)
[2019-08-06] MEDS: LORATADINE 10 MG TAB PO SCH (07:59)
[2019-08-06] MEDS: DULOXETINE 20 MG CAP PO SCH (07:59)
[2019-08-06] MEDS: FE SULF/FA/VIT B COMP & C TAB PO SCH (07:59)
[2019-08-06] MEDS: GABAPENTIN 100 MG CAP PO SCH (07:59)
[2019-08-06] MEDS: RANITIDINE 150 MG TABLET PO SCH (07:59)
[2019-08-06] MEDS: FERROUS SULFATE 325 MG TAB PO SCH (07:59)
[2019-08-06] MEDS: METOPROLOL XL 50 MG TAB PO SCH ×2 (08:00→19:09)
[2019-08-06] MEDS: CYANOCOBALAMIN 1,000 MCG TAB PO SCH (08:00)
[2019-08-06] MEDS: [UNRECOGNIZED DRUG - OTHER] PO SCH (08:05)
[2019-08-06] MEDS: ULORIC 80 MG PO SCH (08:05)
[2019-08-06] MEDS: LYSINE 500 MG PO SCH (08:06)
[2019-08-06] MEDS: RENA VITE PO SCH (08:06)
--- NOTE | 2019-08-06 11:32 | FAST ---
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 Gamal Lafleur M.D. ADMISSION DIAGNOSIS: - Debility 16 - Debility (16) ESRD. EATING: EATING - STEP 1: Does the patient complete the activity by him/herself with no assistance (physical, verbal/nonverbal cueing, setup/clean-up)? No. EATING - STEP 2: Does the patient need only setup/clean-up assistance from one helper? No. EATING - STEP 3: Does the patient need only verbal/nonverbal cueing or touching/steadying/contact guard assistance fro m one helper? Yes. 1. [id number] ADMISSION PERFORMANCE: Supervision or touching assistance CODE: 04 ORAL HYGIENE: ORAL HYGIENE - STEP 1: Does the patient complete the activity by him/herself with no assistance (physical, verbal/nonverbal cueing, setup/clean-up)? No. ORAL HYGIENE - STEP 2: Does the patient need only setup/clean-up assistance from one helper? No. ORAL HYGIENE - STEP 3: Does the patient need only verbal/nonverbal cueing or touching/steadying/contact guard assistance fro m one helper? Yes. 1. [id number] ADMISSION PERFORMANCE: Supervision or touching assistance CODE: 04 TOILETING HYGIENE: TOILETING HYGIENE - STEP 1: Does the patient complete the activity by him/herself with no assistance (physical, verbal/nonverbal cueing, setup/clean-up)? No. TOILETING HYGIENE - STEP 2: Does the patient need only setup/clean-up assistance from one helper? No. TOILETING HYGIENE - STEP 3: Does the patient need only verbal/nonverbal cueing or touching/steadying/contact guard assistance fro m one helper? No. TOILETING HYGIENE - STEP 4: Does the patient need physical assistance - for example lifting or trunk support from one helper - wi th the helper providing less than half of the effort? No. TOILETING HYGIENE - STEP 5: Does the patient need physical assistance - for example lifting or trunk support from one helper - wi th the helper providing more than half of the effort? Yes. 1. [id number] ADMISSION PERFORMANCE: Substantial/maximal assistance CODE: 02 BATHING: Not assessed/no information CODE: - DRESSING - UPPER BODY: Not assessed/no information CODE: - DRESSING - LOWER BODY: Not assessed/no information CODE: - PUTTING ON/TAKING OFF FOOTWEAR: Not assessed/no information CODE: - ROLL LEFT AND RIGHT: ROLL LEFT AND RIGHT - STEP 1: Does the patient complete the activity by him/herself with no assistance (physical, verbal/nonverbal cueing, setup/clean-up)? No. ROLL LEFT AND RIGHT - STEP 2: Does the patient need only setup/clean-up assistance from one helper? No. ROLL LEFT AND RIGHT - STEP 3: Does the patient need only verbal/nonverbal cueing or touching/steadying/contact guard assistance fro m one helper? No. ROLL LEFT AND RIGHT - STEP 4: Does the patient need physical assistance - for example lifting or trunk support from one helper - wi th the helper providing less than half of the effort? No. ROLL LEFT AND RIGHT - STEP 5: Does the patient need physical assistance - for example lifting or trunk support from one helper - wi th the helper providing more than half of the effort? Yes. 1. [id number] ADMISSION PERFORMANCE: Substantial/maximal assistance CODE: 02 SIT TO LYING: SIT TO LYING - STEP 1: Does the patient complete the activity by him/herself with no assistance (physical, verbal/nonverbal cueing, setup/clean-up)? No. SIT TO LYING - STEP 2: Does the patient need only setup/clean-up assistance from one helper? No. SIT TO LYING - STEP 3: Does the patient need only verbal/nonverbal cueing or touching/steadying/contact guard assistance fro m one helper? No. SIT TO LYING - STEP 4: Does the patient need physical assistance - for example lifting or trunk support from one helper - wi th the helper providing less than half of the effort? No. SIT TO LYING - STEP 5: Does the patient need physical assistance - for example lifting or trunk support from one helper - wi th the helper providing more than half of the effort? Yes. 1. [id number] ADMISSION PERFORMANCE: Substantial/maximal assistance CODE: 02 LYING TO SITTING: Not assessed/no information CODE: - SIT TO STAND: SIT TO STAND - STEP 1: Does the patient complete the activity by him/herself with no assistance (physical, verbal/nonverbal cueing, setup/clean-up)? No. SIT TO STAND - STEP 2: Does the patient need only setup/clean-up assistance from one helper? No. SIT TO STAND - STEP 3: Does the patient need only verbal/nonverbal cueing or touching/steadying/contact guard assistance fro m one helper? No. SIT TO STAND - STEP 4: Does the patient need physical assistance - for example lifting or trunk support from one helper - wi th the helper providing less than half of the effort? No. SIT TO STAND - STEP 5: Does the patient need physical assistance - for example lifting or trunk support from one helper - wi th the helper providing more than half of the effort? Yes. 1. [id number] ADMISSION PERFORMANCE: Substantial/maximal assistance CODE: 02 TRANSFERS: BED, CHAIR: CHAIR/[id number] TRANSFER - STEP 1: Does the patient complete the activity by him/herself with no assistance (physical, verbal/nonverbal cueing, setup/clean-up)? No. CHAIR/[id number] TRANSFER - STEP 2: Does the patient need only setup/clean-up assistance from one helper? No. CHAIR/[id number] TRANSFER - STEP 3: Does the patient need only verbal/nonverbal cueing or touching/steadying/contact guard assistance fro m one helper? No. CHAIR/[id number] TRANSFER - STEP 4: Does the patient need physical assistance - for example lifting or trunk support from one helper - wi th the helper providing less than half of the effort? No. CHAIR/[id number] TRANSFER - STEP 5: Does the patient need physical assistance - for example lifting or trunk support from one helper - wi th the helper providing more than half of the effort? Yes. 1. [id number] ADMISSION PERFORMANCE: Substantial/maximal assistance CODE: 02 TRANSFER TOILET: Not assessed/no information CODE: - TRANSFERS: CAR: Not assessed/no information CODE: - WALK 10 FEET: Not assessed/no information CODE: - 1 STEP (CURB): Not assessed/no information CODE: - PICKING UP OBJECT: Not assessed/no information CODE: - DOES THE PATIENT USE A WHEELCHAIR/SCOOTER? CODE: EXPR WHEEL 50 FEET WITH TWO TURNS: Not assessed/no information CODE: - INDICATE THE TYPE OF WHEELCHAIR/SCOOTER USED: CODE: EXPR WHEEL 150 FEET: Not assessed/no information CODE: - INDICATE THE TYPE OF WHEELCHAIR/SCOOTER USED: CODE: EXPR BLADDER AND BOWEL: H350. BLADDER CONTINENCE (3-DAY ASSESSMENT PERIOD): No urine output (e.g., renal failure) CODE: 5 H400. BOWEL CONTINENCE (3-DAY ASSESSMENT PERIOD): Occasionally incontinent (one episode of bowel incontinence) CODE: 1 SIGNATURE PANEL: The following modified sections: 1. [id number] Admission Performance, 1. [id number] Admission Performance, 1. [id number] Admission Performance, 1. [id number] Admission Performance, 1. [id number] Admission Performance, 1. [id number] Admission Performance, 1. [id number] Admission Performance, 1. [id number] Admission Performance , Code, H350. Bladder Continence (3-day assessment period), H400. Bowel Continence (3-day assessment period) were [electronically] signed by Josiah Mojica on SatAug 06 2019 11:31:53 T-0600 ([facility])
[2019-08-06 14:47] LABS: HBsAG Nonreactive (Nonreactive)
[2019-08-06] MEDS ORDERED: WARFARIN SODIUM 5 MG TAB PO SCH (17:00)
[2019-08-06] MEDS: ATORVASTATIN 40 MG TAB PO SCH (19:09)
--- NOTE | 2019-08-06 21:05 | R.PN ---
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 Pt denied any depression. He denies pain. He performed therapeutic exercises with minimum assistance. He required maximum alee tance tor functional transfers. WBC 12.9, neutrophils 75%. Will repeat in the AM. INR 2.22 today. Creatine is 7.01, and BUN is 52. Ph osphorus is normal at 8.6. He will have hemodialysis later today. He has left hip pain after a recent fall. MRI of the left hip shows chronic post surgical changes wit h orthopedic hardware in place. No acute fracture. Examination of his left thigh where he impacted after falling reveals dysesthesia in the left lateral femoral cutaneous distribution. This finding is consistent with left meralgia paresthetica. He had 2 rounds of diarrhea after getting promod 30 ml twice. Promod will be discontinued. INR is 1.8 8. Coumadin dosage will be increased to 5 mg daily from 4.5 mg daily. VITAL SIGNS Temperature: 97.8 F SBP/DBP: 116/77 Pulse: 73 Resp: 16 MEDICATION ALLERGIES: Codeine Morphine ENVIRONMENTAL ALLERGIES: None Known - Substance Allergies None Known - Other Allergies Adhesive Tape NURSING: - Shower allowing shower - Lab Results blood Sugar Check ACHS ACTIVITIES OOB only with supervision THERAPIES: - Dietary and Nutrition Adequate Nutrition. Nutritional Education. Nutritional Supplements. PHYSICAL EXAM - Gen Alert and awake Lying in bed No apparent distress Oriented to: person, time, and place - Skin No skin breakdown. Normacephalic - Eyes No abnormalities - ENMT No abnormalities - Neck No abnormalities - CVS RRR - Chest Mildly decreased breath sounds bilaterally. - Abd Soft - GI + bowel sounds Deferred - Little urine production. On hemodialysis three times weekly. - Ext Mild bilateral lower extremity edema. - MSK 4+/5 weakness in both lower extremities. - Neuro No focal deficits - Psych No abnormalities ASSESSMENT: Pt. is a 84 yo Right-handed white male.On 07/16/2019 he was admitted to [facility] with diagnosis ESRD.His impairment category is Debility 16 - Debility (16).Pre-morbidly, Pt. was independent/mod-I in Locomotion, Safety Awareness, Balance, Social Cognition, Transfers Control, Sph incter Control, Self-Care, Communication, and Endurance; and he had good Locomotion, Safety Awareness , Balance, Social Cognition, Transfers Control, Sphincter Control, Communication, Self-Care, and Endu junior.Currently, he has deficits of Locomotion, Safety Awareness, Social Cognition, Balance, Transfer s Control, Sphincter Control, Self-Care, Communication, and Endurance.Pt. is now referred to [facility] for acute in-patient rehabilitation in order to maximize patient's function al independence in activities of daily living, strength, ROM, and mobility.- Rehab Goal Patient has realistic goal of being discharged at assistance level 6-Gisselle to reside at Home with Fam connie/Relatives. MDM/PLAN: - Physical Therapy Gait dysfunction - to improve, our physical therapists will perform initial evaluation of pt's statu s upon admission and devise an individualized program for Gait Training, and Wheel Chair mobility Inability to transfer - to improve, our physical therapists will perform initial evaluation of pt's status upon admission and devise an individualized program for Bed mobility Need for home safety evaluation - to improve, our physical therapists will perform initial evaluatio n of pt's status upon admission and devise an individualized program for Home Evaluation Need in caregiver upon discharge - to improve, our physical therapists will perform initial evaluati on of pt's status upon admission and devise an individualized program for Caregiver Training New precaution - to improve, our physical therapists will perform initial evaluation of pt's status upon admission and devise an individualized program for Patient precaution education Edema - to improve, our physical therapists will perform initial evaluation of pt's status upon admi ssion and devise an individualized program for Elevation Training, and Lymphedema Therapy Poor balance - to improve, our physical therapists will perform initial evaluation of pt's status up on admission and devise an individualized program for Balance Training Poor endurance - to improve, our physical therapists will perform initial evaluation of pt's status upon admission and devise an individualized program for Endurance Training Weakness - to improve, our physical therapists will perform initial evaluation of pt's status upon a dmission and devise an individualized program for Aquatic Therapy, Neuromuscular Reeducation, and Str engthening Achieving independence - to improve, our physical therapists will perform initial evaluation of pt's status upon admission and devise an individualized program for Community Reintegration Activities - Occupational Therapy ADL deficits - to improve, our occupation therapists will perform initial evaluation of pt's status upon admission and devise an individualized program for Bathing, Bed mobility, Community Reintegratio n, Cooking, Dressing, Eating, Fine Motor Skills, Grooming, Homemaking, Kitchen Mobility, Laundry, Pat ient Education, Safety Awareness, Splinting - Positioning, Transfers(Toilet, Tub, Shower), and Wheel Chair Management Cognitive deficits - to improve, our occupation therapists will perform initial evaluation of pt's s tatus upon admission and devise an individualized program for Cognition - orientation Need for family day carer - to improve, our occupation therapists will perform initial evaluation of pt's status upon admission and devise an individualized program for Caregiver Training Weakness - to improve, our occupation therapists will perform initial evaluation of pt's status upon admission and devise an individualized program for Aquatic Therapy, Balance, Endurance, UE ROM, and UE strengthening - Other See attached MAR (Medication Administration Record) - Diet Type Continue Regular - Diet - Liquid Texture Continue Regular - Tube Feed Continue N/A - Lab Results blood Sugar Check ACHS - Diet - Solid Texture Continue Regular - Shower allowing shower FUNCTIONAL STATUS: UPDATED AT WEEKLY TEAM CONFERENCE - Bladder Same accident frequency: 7-Ind - No accidents in the past 7 days - Bowel Same accident frequency: 7-Ind - No accidents in the past 7 days - Walking Same score based on distance walked: 1(<=50ft) - Wheelchair Same score based on distance traveled: 0(N/A) FUNCTIONAL STATUS: - Self-Care A. Eating sup B. Grooming Gisselle C. Bathing maxA D. Dressing - Upper modA E. Dressing - Lower maxA F. Toileting maxA - Sphincter Control G. Bladder control Dep H. Bowel control Levi - Transfers Control I. Bed/Chair/Wheelchair maxA J. Toilet maxA K. Tub/Shower maxA - Locomotion L. Walk/Wheelchair (B) modA M. Stairs ADNO - Communication N. Comprehension (B) Gisselle O. Expression (B) Gisselle - Social Cognition P. Social Interaction Ind Q. Problem Solving Gisselle R. Memory Gisselle - Endurance Good - Balance Good - Safety Awareness Good QI SCORES: - Self-Care A. Eating 04-Supervision or touching assistance B. Oral hygiene 04-Supervision or touching assistance C. Toileting hygiene 03-Partial/moderate assistance E. Shower/bathe self 03-Partial/moderate assistance F. Upper body dressing 03-Partial/moderate assistance G. Lower body dressing 02-Substantial/maximal assistance H. Putting on/taking off footwear 02-Substantial/maximal assistance - Mobility A. Roll left and right 03-Partial/moderate assistance B. Sit to lying 02-Substantial/maximal assistance C. Lying to sitting on side of bed 02-Substantial/maximal assistance D. Sit to stand 03-Partial/moderate assistance E. Chair/[id number] transfer 03-Partial/moderate assistance F. Toilet transfer 03-Partial/moderate assistance G. Car transfer 88-Not attempted due to medical condition or safety concerns I. Walk 10 feet 02-Substantial/maximal assistance J. Walk 50 feet with two turns 88-Not attempted due to medical condition or safety concerns K. Walk 150 feet 88-Not attempted due to medical condition or safety concerns L. Walking 10 feet on uneven surfaces 88-Not attempted due to medical condition or safety concerns M. 1 step (curb) 88-Not attempted due to medical condition or safety concerns N. 4 steps 88-Not attempted due to medical condition or safety concerns O. 12 steps 88-Not attempted due to medical condition or safety concerns P. Picking up object 88-Not attempted due to medical condition or safety concerns R. Wheel 50 feet with two turns 88-Not attempted due to medical condition or safety concerns S. Wheel 150 feet 88-Not attempted due to medical condition or safety concerns - Bladder and Bowel Bladder continence 5-No urine output Bowel continence 0-Always continent - Endurance Poor - Balance Poor - Safety Awareness Fair CURRENT FUNC. DEFICITS: Self-Care, Mobility, Endurance, Balance, and Safety Awareness SIGNATURE PANEL: (COUNSELING CENTER DIRECTOR)
[2019-08-06 22:08] VITALS: BP 148/69; TEMP 97.1
--- NOTE | 2019-08-06 22:12 | P.PN ---
Date of Service: 08/06/19 Vital Signs Temp Pulse Resp BP Pulse Ox 97.1 F 72 20 148/69 H 94 08/06/19 20:00 08/06/19 20:00 08/06/19 20:00 08/06/19 20:00 08/06/19 20:00 Medications Acetaminophen (Tylenol -Extra Strength) 500 mg PO Q4H PRN PRN Reason: Pain scale 2-4 (Mild) Stop: 08/21/19 10:31 Last Admin: 08/06/19 02:10 Dose: 500 mg Hydrocodone Bitart/Acetaminophen ([place] 5/325) 1 tab PO Q4H PRN PRN Reason: Pain scale 5-7 (Moderate) Stop: 08/27/19 18:02 Last Admin: 08/05/19 07:37 Dose: 1 tab Albuterol Sulfate (Proventil 0.083% Neb Soln) 2.5 mg NEB DAILYRESP [facility] Stop: 09/06/19 08:01 Atorvastatin Calcium (Lipitor) 40 mg PO BEDTIME [facility] Stop: 08/20/19 21:01 Last Admin: 08/06/19 19:09 Dose: 40 mg Calcium Acetate (Phoslo) 2,001 mg PO TIDWM [facility] Stop: 08/21/19 08:01 Last Admin: 08/06/19 16:12 Dose: 2,001 mg Cyanocobalamin (Vitamin B-12) 2,000 mcg PO DAILY [facility] Stop: 08/21/19 08:01 Last Admin: 08/06/19 08:00 Dose: 2,000 mcg Doxazosin Mesylate (Cardura) 2 mg PO BID PRN PRN Reason: Titrate to SBP (MUST DEFINE) Stop: 08/20/19 20:01 Duloxetine HCl (Cymbalta Delayed Release Pellets) 20 mg PO DAILY [facility] Stop: 08/27/19 08:01 Last Admin: 08/06/19 07:59 Dose: 20 mg Ferrous Sulfate (Feosol) 325 mg PO DAILY [facility] Stop: 08/30/19 08:01 Last Admin: 08/06/19 07:59 Dose: 325 mg Gabapentin (Neurontin) 100 mg PO DAILY [facility] Stop: 08/28/19 08:01 Last Admin: 08/06/19 07:59 Dose: 100 mg Guaifenesin (Robitussin 100mg/5ml) 100 mg PO QID PRN PRN Reason: COUGH Stop: 08/25/19 10:27 Last Admin: 08/06/19 19:11 Dose: 100 mg Heparin Sodium (Porcine) (Heparin 1,000 Units/Ml) 2,000 unit IV EVERY HD [facility] Stop: 08/08/19 11:01 Last Admin: 08/03/19 15:16 Dose: 2,000 unit Home Med (Home Med) 0 ea PO BEDTIME PRN PRN PRN Reason: INSOMNIA Stop: 08/20/19 19:01 Home Med (Home Med) 0 ea PO Cristina@0800 [facility] Stop: 08/25/19 08:01 Last Admin: 08/02/19 08:05 Dose: 1 ea Home Med (Home Med) 0 ea PO DAILY [facility] Stop: 08/21/19 08:01 Last Admin: 08/06/19 08:05 Dose: 1 ea Home Med (Home Med) 0 ea PO DAILY [facility] Stop: 08/21/19 08:01 Last Admin: 08/06/19 08:06 Dose: 1 ea Home Med (Home Med) 0 ea PO DAILY [facility] Stop: 08/21/19 08:01 Last Admin: 08/06/19 08:05 Dose: 1 ea Home Med (Home Med) 0 ea PO DAILY [facility] Stop: 08/21/19 08:01 Last Admin: 08/06/19 08:06 Dose: 1 ea Albumin Human (Albumin 25%) 50 mls @ 100 mls/hr IV EVERY HD [facility] Stop: 08/21/19 12:01 Last Admin: 07/29/19 15:58 Dose: 50 mls Ipratropium [place] (Atrovent Neb) 0.5 mg NEB [id number] [facility] Stop: 08/20/19 20:01 Last Admin: 08/06/19 20:00 Dose: Not Given Levetiracetam (Keppra Tab) 500 mg PO BID [facility] Stop: 08/20/19 20:01 Last Admin: 08/06/19 19:09 Dose: 500 mg Lidocaine (Aspercreme 4% Patch) 2 patch TOP DAILY [facility] Stop: 08/22/19 08:01 Last Admin: 08/06/19 07:58 Dose: 2 patch Loratadine (Claritin) 10 mg PO DAILY [facility] Stop: 08/21/19 08:01 Last Admin: 08/06/19 07:59 Dose: 10 mg Mannitol (Mannitol 12.5 Gm/50 Ml Vial) 12.5 gm IV EVERY HD PRN PRN Reason: Titrate to SBP (MUST DEFINE) Stop: 08/21/19 11:39 Metoprolol Succinate (Toprol Xl) 25 mg PO BID [facility] Stop: 08/30/19 08:01 Last Admin: 08/06/19 19:09 Dose: 25 mg Multivitamins/Iron (Hemocyte Plus) 1 tab PO DAILY WITH BREAKFAST [facility] Stop: 08/30/19 08:01 Last Admin: 08/06/19 07:59 Dose: 1 tab Polyethylene Glycol (Glycolax) 17 gm PO DAILY PRN PRN Reason: CONSTIPATION Stop: 08/20/19 18:44 Ranitidine HCl (Zantac) 150 mg PO DAILY [facility] Stop: 08/21/19 08:01 Last Admin: 08/06/19 07:59 Dose: 150 mg Triamcinolone Acetonide (Kenalog 0.1% Cream) 1 appl TOP BID PRN PRN Reason: RASH Stop: 08/20/19 19:05 Warfarin Sodium (Coumadin) 5 mg PO DAILY 5 PM [facility] Stop: 09/05/19 17:01 Last Admin: 08/06/19 16:12 Dose: 5 mg Lab Results (last 24 hrs) 08/06/19 05:54: Sodium 138, Potassium 3.6, Chloride 106, Carbon Dioxide 25, BUN 41 H, Creatinine 5.39 H* D, Estimated GFR 10 L, Glucose 84, Calcium 8.7, Magnesium 2.0, Albumin 2.7 L, Prealbumin 20.7 08/06/19 05:54: WBC 5.8 D, RBC 2.63 L, Hgb 8.2 L, Hct 24.4 L D, MCV 92.8, MCH 31.2, MCHC 33.6, RDW 15.3 H, Plt Count 165 D, MPV 7.6, Total Counted Cancelled , Neutrophils % 70.1, Lymphocytes % 14.5 L, Monocytes % 8.0, Eosinophils % 7.0 H , Basophils % 0.4, Megakaryocytes % Cancelled, Absolute Neutrophils 4.1, Segmented Neutrophils Cancelled, Band Neutrophils Cancelled, Absolute Lymphocytes 0.8, Lymphocytes Cancelled, Monocytes Cancelled, Absolute Monocytes 0.5, Eosinophils Cancelled, Absolute Eosinophils 0.4, Basophils Cancelled, Absolute Basophils 0.0, Metamyelocytes Cancelled, Myelocytes Cancelled, Promyelocytes Cancelled, Nucleated RBCs Cancelled, Hypersegmented Neuts Cancelled, Hypogranular Neuts Cancelled, Atypical Lymphocytes Cancelled, Reactive Lymphocytes Cancelled, Lymphoblasts Cancelled, Blast Cells Cancelled, Immature Blood Cells Cancelled, Plasma Cells Cancelled, Smudge Cells Cancelled, Toxic Granulation Cancelled, Dohle Bodies Cancelled, Pelger-Huet Cells Cancelled , Tom Rods Cancelled, Platelet Estimate Cancelled, Clumped Platelets Cancelled , Giant Platelets Cancelled, Polychromasia Cancelled, Hypochromasia Cancelled, Poikilocytosis Cancelled, Basophilic Stippling Cancelled, Anisocytosis Cancelled , Microcytosis Cancelled, Macrocytosis Cancelled, Spherocytes Cancelled, Sickle Cells Cancelled, Target Cells Cancelled, Tear Drop Cells Cancelled, Ovalocytes Cancelled, Stomatocytes Cancelled, Simeon-[place] Bodies Cancelled, [place] Cells Cancelled, Elliptocytes Cancelled, Rouleaux Cancelled, Cold Agglutinates Cancelled, Unidentified Cells Cancelled, Schistocytes Cancelled, Morphology Comment Cancelled 08/06/19 05:54: PT 24.6 H, INR 2.15 08/03/19 15:54: Hep Bs Antigen Nonreactive 07/31/19 05:47: Renin Activity 0.43 Assessment/ Plan: Nephrology Doing well. CPS stable without CP or SOB. No acute events overnight. Vitals, medications, blood work and imaging reviewed in the chart. General: In no apparent distress, Oriented x3, Cooperative HEENT: Atraumatic, Mucous membr. moist/pink Neck: Supple Respiratory: Clear to auscultation bilaterally, Normal air movement Cardiovascular: Regular rate/rhythm, No rubs, Edema Gastrointestinal: Soft and benign, Non-distended Musculoskeletal: No clubbing, No contractures Integumentary: No rashes, No significant lesion, No cyanosis Neurological: Normal speech Laboratory Data (last 24 hrs) 07/23/19 06:17: Sodium 137, Potassium 4.2, BUN 48 H D, Creatinine 7.32 H* D, Glucose 94, Magnesium 2.4 07/23/19 06:17: WBC 10.2, Hgb 11.0 L, Hct 32.2 L, Plt Count 229 07/23/19 06:17: PT 21.6 H, INR 1.88 Imagings Data: EXAM DESCRIPTION: Sera Single View07/16/2019 4:25 pm CLINICAL HISTORY: Chest pain COMPARISON: July 15 FINDINGS: Old left rib fractures Lungs appear clear of acute infiltrate The heart is mildly enlarged IMPRESSION: No acute abnormality displayed Conclusions/Impression: A/ ESRD on HD. Possible recirculation of AVF? Hyperkalemia. Diastolic CHF, chronic. 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 Anemia in CKD. PRASANNA/ Secondary HyperPTH. Paroxysmal Afib. Toxic Metabolic Encephalopathy. P/ Continue current POC and Medications. HD TIW. Encourage nutrition. PT as tolerated. AM labs. Daily weight. No NSAIDs. Possible discharge soon to [facility].
[2019-08-06] MEDS ORDERED: EPOETIN ALFA 20,000 UNIT/1 ML VIAL SQ SCH (22:15)
[2019-08-07] MEDS: guaiFENesin 100 MG/5 ML UCUP PO PRN (01:20)
[2019-08-07] MEDS: IPRATROPIUM BROM 0.5MG/2.5ML NEB SCH ×3 (02:00→14:40)
[2019-08-07 06:55] LABS: Protime INR 1.97
[2019-08-07 07:03] LABS: Potassium 3.8 mmol/L (3.5-5.1)
[2019-08-07] MEDS: LIDOCAINE 4% PATCH TOP SCH (07:26)
--- NOTE | 2019-08-07 07:42 | P.PN ---
Date of Service: 08/07/19 Vital Signs Temp Pulse Resp BP Pulse Ox 97.1 F 72 20 148/69 H 94 08/06/19 20:00 08/06/19 20:00 08/06/19 20:00 08/06/19 20:00 08/06/19 20:00 Medications Acetaminophen (Tylenol -Extra Strength) 500 mg PO Q4H PRN PRN Reason: Pain scale 2-4 (Mild) Stop: 08/21/19 10:31 Last Admin: 08/06/19 02:10 Dose: 500 mg Hydrocodone Bitart/Acetaminophen ([place] 5/325) 1 tab PO Q4H PRN PRN Reason: Pain scale 5-7 (Moderate) Stop: 08/27/19 18:02 Last Admin: 08/05/19 07:37 Dose: 1 tab Albuterol Sulfate (Proventil 0.083% Neb Soln) 2.5 mg NEB DAILYRESP [facility] Stop: 09/06/19 08:01 Atorvastatin Calcium (Lipitor) 40 mg PO BEDTIME [facility] Stop: 08/20/19 21:01 Last Admin: 08/06/19 19:09 Dose: 40 mg Calcium Acetate (Phoslo) 2,001 mg PO TIDWM [facility] Stop: 08/21/19 08:01 Last Admin: 08/06/19 16:12 Dose: 2,001 mg Cyanocobalamin (Vitamin B-12) 2,000 mcg PO DAILY [facility] Stop: 08/21/19 08:01 Last Admin: 08/06/19 08:00 Dose: 2,000 mcg Doxazosin Mesylate (Cardura) 2 mg PO BID PRN PRN Reason: Titrate to SBP (MUST DEFINE) Stop: 08/20/19 20:01 Duloxetine HCl (Cymbalta Delayed Release Pellets) 20 mg PO DAILY [facility] Stop: 08/27/19 08:01 Last Admin: 08/06/19 07:59 Dose: 20 mg Epoetin Cam (Procrit) 20,000 unit SQ 1X [facility] Stop: 08/07/19 08:00 Last Admin: 08/07/19 07:25 Dose: 20,000 unit Ferrous Sulfate (Feosol) 325 mg PO DAILY [facility] Stop: 08/30/19 08:01 Last Admin: 08/06/19 07:59 Dose: 325 mg Gabapentin (Neurontin) 100 mg PO DAILY [facility] Stop: 08/28/19 08:01 Last Admin: 08/06/19 07:59 Dose: 100 mg Guaifenesin (Robitussin 100mg/5ml) 100 mg PO QID PRN PRN Reason: COUGH Stop: 08/25/19 10:27 Last Admin: 08/07/19 01:20 Dose: 100 mg Heparin Sodium (Porcine) (Heparin 1,000 Units/Ml) 2,000 unit IV EVERY HD [facility] Stop: 08/08/19 11:01 Last Admin: 08/03/19 15:16 Dose: 2,000 unit Home Med (Home Med) 0 ea PO BEDTIME PRN PRN PRN Reason: INSOMNIA Stop: 08/20/19 19:01 Home Med (Home Med) 0 ea PO Cristina@0800 [facility] Stop: 08/25/19 08:01 Last Admin: 08/02/19 08:05 Dose: 1 ea Home Med (Home Med) 0 ea PO DAILY [facility] Stop: 08/21/19 08:01 Last Admin: 08/06/19 08:05 Dose: 1 ea Home Med (Home Med) 0 ea PO DAILY [facility] Stop: 08/21/19 08:01 Last Admin: 08/06/19 08:06 Dose: 1 ea Home Med (Home Med) 0 ea PO DAILY [facility] Stop: 08/21/19 08:01 Last Admin: 08/06/19 08:05 Dose: 1 ea Home Med (Home Med) 0 ea PO DAILY [facility] Stop: 08/21/19 08:01 Last Admin: 08/06/19 08:06 Dose: 1 ea Albumin Human (Albumin 25%) 50 mls @ 100 mls/hr IV EVERY HD [facility] Stop: 08/21/19 12:01 Last Admin: 07/29/19 15:58 Dose: 50 mls Ipratropium [place] (Atrovent Neb) 0.5 mg NEB [id number] [facility] Stop: 08/20/19 20:01 Last Admin: 08/07/19 02:00 Dose: Not Given Levetiracetam (Keppra Tab) 500 mg PO BID [facility] Stop: 08/20/19 20:01 Last Admin: 08/06/19 19:09 Dose: 500 mg Lidocaine (Aspercreme 4% Patch) 2 patch TOP DAILY [facility] Stop: 08/22/19 08:01 Last Admin: 08/07/19 07:26 Dose: 2 patch Loratadine (Claritin) 10 mg PO DAILY [facility] Stop: 08/21/19 08:01 Last Admin: 08/06/19 07:59 Dose: 10 mg Mannitol (Mannitol 12.5 Gm/50 Ml Vial) 12.5 gm IV EVERY HD PRN PRN Reason: Titrate to SBP (MUST DEFINE) Stop: 08/21/19 11:39 Metoprolol Succinate (Toprol Xl) 25 mg PO BID [facility] Stop: 08/30/19 08:01 Last Admin: 08/06/19 19:09 Dose: 25 mg Multivitamins/Iron (Hemocyte Plus) 1 tab PO DAILY WITH BREAKFAST [facility] Stop: 08/30/19 08:01 Last Admin: 08/06/19 07:59 Dose: 1 tab Polyethylene Glycol (Glycolax) 17 gm PO DAILY PRN PRN Reason: CONSTIPATION Stop: 08/20/19 18:44 Ranitidine HCl (Zantac) 150 mg PO DAILY [facility] Stop: 08/21/19 08:01 Last Admin: 08/06/19 07:59 Dose: 150 mg Triamcinolone Acetonide (Kenalog 0.1% Cream) 1 appl TOP BID PRN PRN Reason: RASH Stop: 08/20/19 19:05 Warfarin Sodium (Coumadin) 5 mg PO DAILY 5 PM [facility] Stop: 09/05/19 17:01 Last Admin: 08/06/19 16:12 Dose: 5 mg Lab Results (last 24 hrs) 08/07/19 06:15: Sodium 137, Potassium 3.8, Chloride 105, Carbon Dioxide 25, BUN 61 H D, Creatinine 6.65 H* D, Estimated GFR 8 L, Glucose 88, Calcium 8.8 08/07/19 06:15: PT 22.6 H, INR 1.97 08/06/19 05:54: Sodium 138, Potassium 3.6, Chloride 106, Carbon Dioxide 25, BUN 41 H, Creatinine 5.39 H* D, Estimated GFR 10 L, Glucose 84, Calcium 8.7, Magnesium 2.0, Albumin 2.7 L, Prealbumin 20.7 08/03/19 15:54: Hep Bs Antigen Nonreactive 07/31/19 05:47: Renin Activity 0.43 Assessment/ Plan: Nephrology Doing well. CPS stable without CP or SOB. No acute events overnight. Vitals, medications, blood work and imaging reviewed in the chart. General: In no apparent distress, Oriented x3, Cooperative HEENT: Atraumatic, Mucous membr. moist/pink Neck: Supple Respiratory: Clear to auscultation bilaterally, Normal air movement Cardiovascular: Regular rate/rhythm, No rubs, Edema Gastrointestinal: Soft and benign, Non-distended Musculoskeletal: No clubbing, No contractures Integumentary: No rashes, No significant lesion, No cyanosis Neurological: Normal speech Laboratory Data (last 24 hrs) 07/23/19 06:17: Sodium 137, Potassium 4.2, BUN 48 H D, Creatinine 7.32 H* D, Glucose 94, Magnesium 2.4 07/23/19 06:17: WBC 10.2, Hgb 11.0 L, Hct 32.2 L, Plt Count 229 07/23/19 06:17: PT 21.6 H, INR 1.88 Imagings Data: EXAM DESCRIPTION: Sera Single View07/16/2019 4:25 pm CLINICAL HISTORY: Chest pain COMPARISON: July 15 FINDINGS: Old left rib fractures Lungs appear clear of acute infiltrate The heart is mildly enlarged IMPRESSION: No acute abnormality displayed Conclusions/Impression: A/ ESRD on HD. Possible recirculation of AVF? Hyperkalemia. Diastolic CHF, chronic. 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 Anemia in CKD. PRASANNA/ Secondary HyperPTH. Paroxysmal Afib. Toxic Metabolic Encephalopathy. P/ Continue current POC and Medications. Acute HD ordered for today. Continue Retacrit. Encourage nutrition. Aggressive PT as tolerated. AM labs. Daily weight. No NSAIDs. Possible discharge today to [facility].
[2019-08-07] MEDS ORDERED: ALBUTEROL 2.5 MG/3 ML NEB SOL NEB SCH (08:00)
[2019-08-07] MEDS: METOPROLOL XL 50 MG TAB PO SCH (08:00)
[2019-08-07] MEDS: DULOXETINE 20 MG CAP PO SCH (08:31)
[2019-08-07] MEDS: FERROUS SULFATE 325 MG TAB PO SCH (08:31)
[2019-08-07] MEDS: CYANOCOBALAMIN 1,000 MCG TAB PO SCH (08:31)
[2019-08-07] MEDS: CA ACETATE 667 MG CAP PO SCH ×2 (08:31→12:33)
[2019-08-07] MEDS: [UNRECOGNIZED DRUG - OTHER] PO SCH (08:32)
[2019-08-07] MEDS: levETIRAcetam 500 MG TAB PO SCH (08:32)
[2019-08-07] MEDS: RANITIDINE 150 MG TABLET PO SCH (08:32)
[2019-08-07] MEDS: GABAPENTIN 100 MG CAP PO SCH (08:32)
[2019-08-07] MEDS: LORATADINE 10 MG TAB PO SCH (08:32)
[2019-08-07] MEDS: FE SULF/FA/VIT B COMP & C TAB PO SCH (08:32)
[2019-08-07] MEDS: ULORIC 80 MG PO SCH (08:33)
[2019-08-07] MEDS: RENA VITE PO SCH (08:33)
[2019-08-07] MEDS: LYSINE 500 MG PO SCH (08:33)
[2019-08-07] MEDS: HYDROCODONE/APAP 5/325 MG TAB PO PRN ×2 (09:04→16:04)
--- NOTE | 2019-08-07 09:55 | P.RH.PN ---
Estimated Length of Stay: 18 Expected Discharge Date: 08/07/19 Discharge Disposition Plan: Home Family Support: Yes Correction Goal: Mobility, Transfers, Self Care Vital Signs: Last Vital Signs Temp 97.1 F 08/06/19 20:00 Pulse 72 08/06/19 20:00 Resp 20 08/07/19 09:04 BP 148/69 H 08/06/19 20:00 Pulse Ox 92 08/07/19 09:04 Laboratory: Laboratory Last Values WBC 5.8 K/uL (4.3-10.9) D 08/06/19 05:54 RBC 2.63 M/uL (4.33-5.43) L 08/06/19 05:54 Hgb 8.2 g/dL (13.6-17.9) L 08/06/19 05:54 Hct 24.4 % (39.6-49.0) L D 08/06/19 05:54 MCV 92.8 fL (80-100) 08/06/19 05:54 MCH 31.2 pg (27.0-35.0) 08/06/19 05:54 MCHC 33.6 g/dL (32.0-36.0) 08/06/19 05:54 RDW 15.3 % (12.1-15.2) H 08/06/19 05:54 Plt Count 165 K/uL (152-406) D 08/06/19 05:54 MPV 7.6 fL (7.6-11.3) 08/06/19 05:54 Total Counted Cancelled 08/06/19 05:54 Neutrophils % 70.1 % (41.7-73.7) 08/06/19 05:54 Lymphocytes % 14.5 % (15.3-44.8) L 08/06/19 05:54 Monocytes % 8.0 % (3.3-12.3) 08/06/19 05:54 Eosinophils % 7.0 % (0-4.4) H 08/06/19 05:54 Basophils % 0.4 % (0-1.3) 08/06/19 05:54 Megakaryocytes % Cancelled 08/06/19 05:54 Absolute Neutrophils 4.1 K/uL (1.8-8.0) 08/06/19 05:54 Segmented Neutrophils Cancelled 08/06/19 05:54 Band Neutrophils Cancelled 08/06/19 05:54 Absolute Lymphocytes 0.8 K/uL (0.7-4.9) 08/06/19 05:54 Lymphocytes Cancelled 08/06/19 05:54 Monocytes Cancelled 08/06/19 05:54 Absolute Monocytes 0.5 K/uL (0.1-1.3) 08/06/19 05:54 Eosinophils Cancelled 08/06/19 05:54 Absolute Eosinophils 0.4 K/uL (0-0.5) 08/06/19 05:54 Basophils Cancelled 08/06/19 05:54 Absolute Basophils 0.0 K/uL (0-0.5) 08/06/19 05:54 Metamyelocytes Cancelled 08/06/19 05:54 Myelocytes Cancelled 08/06/19 05:54 Promyelocytes Cancelled 08/06/19 05:54 Nucleated RBCs Cancelled 08/06/19 05:54 Hypersegmented Neuts Cancelled 08/06/19 05:54 Hypogranular Neuts Cancelled 08/06/19 05:54 Atypical Lymphocytes Cancelled 08/06/19 05:54 Reactive Lymphocytes Cancelled 08/06/19 05:54 Lymphoblasts Cancelled 08/06/19 05:54 Blast Cells Cancelled 08/06/19 05:54 Immature Blood Cells Cancelled 08/06/19 05:54 Plasma Cells Cancelled 08/06/19 05:54 Smudge Cells Cancelled 08/06/19 05:54 Toxic Granulation Cancelled 08/06/19 05:54 Dohle Bodies Cancelled 08/06/19 05:54 Pelger-Huet Cells Cancelled 08/06/19 05:54 Tom Rods Cancelled 08/06/19 05:54 Platelet Estimate Cancelled 08/06/19 05:54 Clumped Platelets Cancelled 08/06/19 05:54 Giant Platelets Cancelled 08/06/19 05:54 Polychromasia Cancelled 08/06/19 05:54 Hypochromasia Cancelled 08/06/19 05:54 Poikilocytosis Cancelled 08/06/19 05:54 Basophilic Stippling Cancelled 08/06/19 05:54 Anisocytosis Cancelled 08/06/19 05:54 Microcytosis Cancelled 08/06/19 05:54 Macrocytosis Cancelled 08/06/19 05:54 Spherocytes Cancelled 08/06/19 05:54 Sickle Cells Cancelled 08/06/19 05:54 Target Cells Cancelled 08/06/19 05:54 Tear Drop Cells Cancelled 08/06/19 05:54 Ovalocytes Cancelled 08/06/19 05:54 Stomatocytes Cancelled 08/06/19 05:54 Simeon-Linganore Bodies Cancelled 08/06/19 05:54 [place] Cells Cancelled 08/06/19 05:54 Elliptocytes Cancelled 08/06/19 05:54 Rouleaux Cancelled 08/06/19 05:54 Cold Agglutinates Cancelled 08/06/19 05:54 Unidentified Cells Cancelled 08/06/19 05:54 Schistocytes Cancelled 08/06/19 05:54 Morphology Comment Cancelled 08/06/19 05:54 PT 22.6 SECONDS (9.5-12.5) H 08/07/19 06:15 INR 1.97 08/07/19 06:15 Sodium 137 mmol/L (136-145) 08/07/19 06:15 Potassium 3.8 mmol/L (3.5-5.1) 08/07/19 06:15 Chloride 105 mmol/L (98-107) 08/07/19 06:15 Carbon Dioxide 25 mmol/L (21-32) 08/07/19 06:15 BUN 61 mg/dL (7-18) H D 08/07/19 06:15 Creatinine 6.65 mg/dL (0.55-1.3) H* D 08/07/19 06:15 Estimated GFR 8 mL/min (=/>90) L 08/07/19 06:15 Glucose 88 mg/dL (74-106) 08/07/19 06:15 Lactic Acid 1.0 mmol/L (0.4-2.0) 07/29/19 14:31 Uric Acid 1.1 mg/dL (3.5-7.2) L 08/01/19 06:16 Calcium 8.8 mg/dL (8.5-10.1) 08/07/19 06:15 Phosphorus 4.8 mg/dL (2.5-4.9) 08/01/19 06:16 Magnesium 2.0 mg/dL (1.8-2.4) 08/06/19 05:54 Total Bilirubin 0.5 mg/dL (0.2-1.0) 08/01/19 06:16 AST 19 U/L (15-37) 08/01/19 06:16 ALT 19 U/L (12-78) 08/01/19 06:16 Alkaline Phosphatase 81 U/L (45-117) 08/01/19 06:16 NT-Pro-B Natriuret Pep 82241 pg/mL (<450) H 07/29/19 05:33 Serum Total Protein 6.2 g/dL (6.4-8.2) L 08/01/19 06:16 Globulin 3.5 g/dL (2.3-3.5) 08/01/19 06:16 Albumin 2.7 g/dL (3.4-5.0) L 08/06/19 05:54 Albumin/Globulin Ratio 0.8 (1.1-1.8) L 08/01/19 06:16 Prealbumin 20.7 mg/dL (20-40) 08/06/19 05:54 Renin Activity 0.43 ng/mL/h (0.25-5.82) 07/31/19 05:47 Procalcitonin 1.45 ng/mL (<0.50) H 07/29/19 14:31 TSH 2.830 uIU/mL (0.360-3.740) 07/31/19 05:47 Cortisol 14.85 ug/dL (SEE COMMENT) 07/31/19 05:47 Levetiracetam 39.1 mcg/mL (12.0-46.0) 07/31/19 05:47 Hep Bs Antigen Nonreactive (Nonreactive) 08/03/19 15:54 Weight: 240 lb Wound Present: No Closed Surgical Incision Present: No Negative Pressure Wound Therapy Present: No Physician Update: She is working hard with speech therapy. She requires extra time with two or more step activities. Her labs were reviewed and are stable. 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 She is on decatron. Medical Issues: Patient has no urine output , dialysis patient and always continent with bowel. Comment: skin tear on the left lower leg - with dressing Functional Improvement: pt demonstrates a willingness to participate; however, he is quite limited by the pain in his L LE. pt continues to require skilled PT services to enhance functional performance. Speech Therapy Update: Patient presents with min (trace) cognitive-linguistic impairments that appear to be more related to hearing loss and ESRD. During optimal functioning patient is oriented, cognizent, and able to follow conversation and follow 1-2 step commands. Patient is tolerating regular solids /thin liquids without difficulty. His voice is hoarse due to persistent coughing. Summary: Patient's care plan and [facility] goals have been reviewed and revised as necessary. Please see the Rehabilitation Signature page for all necessary signatures.
--- NOTE | 2019-08-07 10:00 | P.PN ---
Subjective Date of Service: 08/07/19 Primary Care Provider: Dr. Love Chief Complaint: Weakness Physical Examination - Vital Signs Temperature: 97.1 F Blood Pressure: 148/69 Pulse: 72 Respirations: 20 Pulse Ox (%): 92 - Studies Laboratory Data (last 24 hrs) 08/07/19 06:15: Sodium 137, Potassium 3.8, BUN 61 H D, Creatinine 6.65 H* D, Glucose 88 08/07/19 06:15: PT 22.6 H, INR 1.97 Assessment/Plan Problems/ Assessment/ Plan: Patient Problems: CHF (congestive heart failure) (Acute 02/25/18) I50.9 Expressive aphasia (Acute) R47.01 Fall (Acute) W19.XXXA Generalized weakness (Acute) R53.1 Renal failure (Acute 02/25/18) N19 ESRD (end stage renal disease) (Chronic) N18.6 HTN (hypertension) (Chronic) I10 Please disregard the physician section in today's not. It is regarding another patient. He is doing better with mood, but he is still challenged by left thigh pain and encephalopathy due to renal failure.
[2019-08-07 15:00] VITALS: O2SAT 96
--- NOTE | 2019-08-07 15:03 | FAST ---
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 Gamal Lafleur M.D. ADMISSION DIAGNOSIS: - Debility 16 - Debility (16) ESRD. EATING: Not assessed/no information CODE: - ORAL HYGIENE: ORAL HYGIENE - STEP 1: Does the patient complete the activity by him/herself with no assistance (physical, verbal/nonverbal cueing, setup/clean-up)? Yes. 1. [id number] ADMISSION PERFORMANCE: Independent CODE: 06 TOILETING HYGIENE: Not assessed/no information CODE: - BATHING: SHOWER/BATHE SELF - STEP 1: Does the patient complete the activity by him/herself with no assistance (physical, verbal/nonverbal cueing, setup/clean-up)? No. SHOWER/BATHE SELF - STEP 2: Does the patient need only setup/clean-up assistance from one helper? No. SHOWER/BATHE SELF - STEP 3: Does the patient need only verbal/nonverbal cueing or touching/steadying/contact guard assistance fro m one helper? Yes. 1. [id number] ADMISSION PERFORMANCE: Supervision or touching assistance CODE: 04 DRESSING - UPPER BODY: DRESSING - UPPER BODY - STEP 1: Does the patient complete the activity by him/herself with no assistance (physical, verbal/nonverbal cueing, setup/clean-up)? Yes. 1. [id number] ADMISSION PERFORMANCE: Independent CODE: 06 DRESSING - LOWER BODY: DRESSING - LOWER BODY - STEP 1: Does the patient complete the activity by him/herself with no assistance (physical, verbal/nonverbal cueing, setup/clean-up)? No. DRESSING - LOWER BODY - STEP 2: Does the patient need only setup/clean-up assistance from one helper? No. DRESSING - LOWER BODY - STEP 3: Does the patient need only verbal/nonverbal cueing or touching/steadying/contact guard assistance fro m one helper? Yes. 1. [id number] ADMISSION PERFORMANCE: Supervision or touching assistance CODE: 04 PUTTING ON/TAKING OFF FOOTWEAR: FOOTWEAR - STEP 1: Does the patient complete the activity by him/herself with no assistance (physical, verbal/nonverbal cueing, setup/clean-up)? No. FOOTWEAR - STEP 2: Does the patient need only setup/clean-up assistance from one helper? No. FOOTWEAR - STEP 3: Does the patient need only verbal/nonverbal cueing or touching/steadying/contact guard assistance fro m one helper? Yes. 1. [id number] ADMISSION PERFORMANCE: Supervision or touching assistance CODE: 04 DOES THE PATIENT USE A WHEELCHAIR/SCOOTER? CODE: EXPR INDICATE THE TYPE OF WHEELCHAIR/SCOOTER USED: CODE: EXPR INDICATE THE TYPE OF WHEELCHAIR/SCOOTER USED: CODE: EXPR BLADDER AND BOWEL: CODE: EXPR CODE: EXPR SIGNATURE PANEL: The following modified sections: 1. [id number] Admission Performance, 1. [id number] Admission Performance, 1. [id number] Admission Performance, 1. [id number] Admission Performance, 1. [id number] Admission Performance were [electronically] signed by EDITH Cox on SatAug 07 2019 15:02:40 GMT-0600 (Central Standard Time)
--- NOTE | 2019-08-13 10:36 | FAST ---
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 Gamal Lafleur M.D. ADMISSION DIAGNOSIS: - Debility 16 - Debility (16) ESRD. ROLL LEFT AND RIGHT: ROLL LEFT AND RIGHT - STEP 1: Does the patient complete the activity by him/herself with no assistance (physical, verbal/nonverbal cueing, setup/clean-up)? No. ROLL LEFT AND RIGHT - STEP 2: Does the patient need only setup/clean-up assistance from one helper? No. ROLL LEFT AND RIGHT - STEP 3: Does the patient need only verbal/nonverbal cueing or touching/steadying/contact guard assistance fro m one helper? No. ROLL LEFT AND RIGHT - STEP 4: Does the patient need physical assistance - for example lifting or trunk support from one helper - wi th the helper providing less than half of the effort? No. ROLL LEFT AND RIGHT - STEP 5: Does the patient need physical assistance - for example lifting or trunk support from one helper - wi th the helper providing more than half of the effort? Yes. 1. [id number] ADMISSION PERFORMANCE: Substantial/maximal assistance CODE: 02 SIT TO LYING: SIT TO LYING - STEP 1: Does the patient complete the activity by him/herself with no assistance (physical, verbal/nonverbal cueing, setup/clean-up)? No. SIT TO LYING - STEP 2: Does the patient need only setup/clean-up assistance from one helper? No. SIT TO LYING - STEP 3: Does the patient need only verbal/nonverbal cueing or touching/steadying/contact guard assistance fro m one helper? No. SIT TO LYING - STEP 4: Does the patient need physical assistance - for example lifting or trunk support from one helper - wi th the helper providing less than half of the effort? No. SIT TO LYING - STEP 5: Does the patient need physical assistance - for example lifting or trunk support from one helper - wi th the helper providing more than half of the effort? Yes. 1. [id number] ADMISSION PERFORMANCE: Substantial/maximal assistance CODE: 02 LYING TO SITTING: LYING TO SITTING ON SIDE OF BED - STEP 1: Does the patient complete the activity by him/herself with no assistance (physical, verbal/nonverbal cueing, setup/clean-up)? No. LYING TO SITTING ON SIDE OF BED - STEP 2: Does the patient need only setup/clean-up assistance from one helper? No. LYING TO SITTING ON SIDE OF BED - STEP 3: Does the patient need only verbal/nonverbal cueing or touching/steadying/contact guard assistance fro m one helper? No. LYING TO SITTING ON SIDE OF BED - STEP 4: Does the patient need physical assistance - for example lifting or trunk support from one helper - wi th the helper providing less than half of the effort? No. LYING TO SITTING ON SIDE OF BED - STEP 5: Does the patient need physical assistance - for example lifting or trunk support from one helper - wi th the helper providing more than half of the effort? Yes. 1. [id number] ADMISSION PERFORMANCE: Substantial/maximal assistance CODE: 02 SIT TO STAND: SIT TO STAND - STEP 1: Does the patient complete the activity by him/herself with no assistance (physical, verbal/nonverbal cueing, setup/clean-up)? No. SIT TO STAND - STEP 2: Does the patient need only setup/clean-up assistance from one helper? No. SIT TO STAND - STEP 3: Does the patient need only verbal/nonverbal cueing or touching/steadying/contact guard assistance fro m one helper? No. SIT TO STAND - STEP 4: Does the patient need physical assistance - for example lifting or trunk support from one helper - wi th the helper providing less than half of the effort? No. SIT TO STAND - STEP 5: Does the patient need physical assistance - for example lifting or trunk support from one helper - wi th the helper providing more than half of the effort? Yes. 1. [id number] ADMISSION PERFORMANCE: Substantial/maximal assistance CODE: 02 TRANSFERS: BED, CHAIR: CHAIR/[id number] TRANSFER - STEP 1: Does the patient complete the activity by him/herself with no assistance (physical, verbal/nonverbal cueing, setup/clean-up)? No. CHAIR/[id number] TRANSFER - STEP 2: Does the patient need only setup/clean-up assistance from one helper? No. CHAIR/[id number] TRANSFER - STEP 3: Does the patient need only verbal/nonverbal cueing or touching/steadying/contact guard assistance fro m one helper? No. CHAIR/[id number] TRANSFER - STEP 4: Does the patient need physical assistance - for example lifting or trunk support from one helper - wi th the helper providing less than half of the effort? No. CHAIR/[id number] TRANSFER - STEP 5: Does the patient need physical assistance - for example lifting or trunk support from one helper - wi th the helper providing more than half of the effort? Yes. 1. [id number] ADMISSION PERFORMANCE: Substantial/maximal assistance CODE: 02 TRANSFER TOILET: TOILET TRANSFER - STEP 1: Does the patient complete the activity by him/herself with no assistance (physical, verbal/nonverbal cueing, setup/clean-up)? No. TOILET TRANSFER - STEP 2: Does the patient need only setup/clean-up assistance from one helper? No. TOILET TRANSFER - STEP 3: Does the patient need only verbal/nonverbal cueing or touching/steadying/contact guard assistance fro m one helper? No. TOILET TRANSFER - STEP 4: Does the patient need physical assistance - for example lifting or trunk support from one helper - wi th the helper providing less than half of the effort? No. TOILET TRANSFER - STEP 5: Does the patient need physical assistance - for example lifting or trunk support from one helper - wi th the helper providing more than half of the effort? Yes. 1. [id number] ADMISSION PERFORMANCE: Substantial/maximal assistance CODE: 02 TRANSFERS: CAR: Not assessed/no information CODE: - WALK 10 FEET: Not attempted due to medical condition or safety concerns CODE: 88 1 STEP (CURB): Not attempted due to medical condition or safety concerns CODE: 88 PICKING UP OBJECT: Not attempted due to medical condition or safety concerns CODE: 88 DOES THE PATIENT USE A WHEELCHAIR/SCOOTER? Q1. DOES THE PATIENT USE A WHEELCHAIR/SCOOTER?: Yes CODE: 1 WHEEL 50 FEET WITH TWO TURNS: WHEEL 50 FEET WITH TWO TURNS - STEP 1: Does the patient complete the activity by him/herself with no assistance (physical, verbal/nonverbal cueing, setup/clean-up)? No. WHEEL 50 FEET WITH TWO TURNS - STEP 2: Does the patient need only setup/clean-up assistance from one helper? No. WHEEL 50 FEET WITH TWO TURNS - STEP 3: Does the patient need only verbal/nonverbal cueing or touching/steadying/contact guard assistance fro m one helper? Yes. 1. [id number] ADMISSION PERFORMANCE: Supervision or touching assistance CODE: 04 INDICATE THE TYPE OF WHEELCHAIR/SCOOTER USED: RR1. INDICATE THE TYPE OF WHEELCHAIR/SCOOTER USED.: Manual CODE: 1 WHEEL 150 FEET: WHEEL 150 FEET - STEP 1: Does the patient complete the activity by him/herself with no assistance (physical, verbal/nonverbal cueing, setup/clean-up)? No. WHEEL 150 FEET - STEP 2: Does the patient need only setup/clean-up assistance from one helper? No. WHEEL 150 FEET - STEP 3: Does the patient need only verbal/nonverbal cueing or touching/steadying/contact guard assistance fro m one helper? Yes. 1. [id number] ADMISSION PERFORMANCE: Supervision or touching assistance CODE: 04 INDICATE THE TYPE OF WHEELCHAIR/SCOOTER USED: SS1. INDICATE THE TYPE OF WHEELCHAIR/SCOOTER USED.: Manual CODE: 1 BLADDER AND BOWEL: CODE: EXPR CODE: EXPR SIGNATURE PANEL: The following modified sections: 1. [id number] Admission Performance, 1. [id number] Admission Performance, 1. [id number] Admission Performance, 1. [id number] Admission Performance, 1. [id number] Admission Performance, 1. [id number] Admission Performance, Q1. Does the patient use a wheelchair/scooter?, 1. [id number] Admissi on Performance, RR1. Indicate the type of wheelchair/scooter used., 1. [id number] Admission Performance, Code, SS1. Indicate the type of wheelchair/scooter used. were [electronically] signed by Lucinda dunn PTA on SatAug 13 2019 10:35:39 GMT-0600 (Central Standard Time)
== END 2019-08-07 16:05 | DRG 683 ==
LOC: 5TH 17:57
PROVIDERS: ADMIT Psychiatry & Neurology Neurology with Special Qualifications in Child Neurology; ATTEND Psychiatry & Neurology Neurology with Special Qualifications in Child Neurology
DX: N18.6 End stage renal disease (principal); I48.20 Chronic atrial fibrillation, unspecified; I13.2 Hypertensive heart and chronic kidney disease with heart failure and with stage 5 chronic kidney disease, or end stage renal disease; I50.32 Chronic diastolic (congestive) heart failure; N25.81 Secondary hyperparathyroidism of renal origin; C64.9 Malignant neoplasm of unspecified kidney, except renal pelvis; R53.81 Other malaise; E11.40 Type 2 diabetes mellitus with diabetic neuropathy, unspecified; E11.22 Type 2 diabetes mellitus with diabetic chronic kidney disease; N17.9 Acute kidney failure, unspecified; E87.5 Hyperkalemia; R41.82 Altered mental status, unspecified; Z99.2 Dependence on renal dialysis
CPT/HCPCS: 36415; 71045; 80048; 80053; 80177; 82040; 82088; 82533; 83605; 83735; 83880; 84100; 84134; 84145; 84244; 84443; 84550; 85025; 85610; 87340; 90935; 92507; 92523; 92526; 93005; 93971; 94640; 97110; 97112; 97116; 97124; 97127; 97161; 97530; 97542; J1644; P9047; Q4081

== ENCOUNTER 2020-04-12 11:03 | Inpatient (IN) | payer OTHER ==
--- OUTSIDE RECORDS SUMMARY | 2020-04-12 11:07 | XMS REPORT | Clinical Summary ---
:1935 Author Organization [facility] Address [address] [place] [address] Care Team Providers Name Role Phone MD Kate Primary Care Provider Allergies Active Allergy Reactions Severity Noted Date Comments Adhesive Tape-Silicones Rash Low 04/29/2018 BLIS TERS Codeine Rash Low 04/29/2018 Gabapentin Altered Mental Status 02/24/2020 Morphine Other (See Comments) 04/29/2018 "MAKES ME GOOFY - NO PAIN RELIEF" Sevelamer Carbonate Itching 02/24/2020 Medications Medication Sig Dispensed Refills Start Date End Date Status metoprolol succinate Take 100 mg by 1 07/22/2016 Active XL (TOPROL-XL) 100 mg mouth 2 (two) times 24 hr tablet a day. Hold SBP <100, DBP <60 HR<55 calcium acetate Take 2,001 mg by 0 Active (PHOSLO) 667 mg mouth 3 (three) capsule times a day before meals. antiox.mv Take 1 capsule by 0 Ac tive no.10/omeg3s/lut/michel mouth daily. (I-CAPS ORAL) cyanocobalamin Take 2,000 mcg by 0 Active (VITAMIN B-12) 1000 mouth daily. MCG tablet atorvastatin Take 40 mg by mouth 0 Active (LIPITOR) 40 MG nightly. tablet diclofenac (VOLTAREN) Apply 4 g topically 0 Active 1 % gel 3 (three) times a day. Right shoulder and left hip (lateral) doxazosin (CARDURA) 2 Take 2 mg by mouth 0 Active MG tablet 2 (two) times a day. Hold SBP <100, DBP <60 or pulse <60 famotidine (PEPCID) Take 20 mg by mouth 0 Active 20 MG tablet daily. ferrous sulfate 325 Take 325 mg by 0 Active (65 FE) MG tablet mouth daily. fluticasone 1 spray by Each 0 Ac tive propionate (FLONASE) Nare route 2 (two) 50 mcg/actuation times a day. Until nasal spray 09/16/2019 @23:59 ipratropium-albuterol Take 3 mL by 0 Active (DUO-NEB) 0.5-2.5 nebulization 4 mg/3 mL nebulizer (four) times a day. budesonide Take 0.5 mg by 0 Acti ve (PULMICORT) 0.5 mg/2 nebulization 2 mL nebulizer solution (two) times a day. febuxostat (ULORIC) Take 80 mg by mouth 0 Active 80 mg tablet daily. warfarin (COUMADIN) 6 Take 1 tablet (6 mg 0 09/01/19 20 Active MG tablet total) by mouth daily. Additional Information Patient taking differently: 5 mg oral daily at 1700, Informant: Other, Reported on 02/24/2020 9:50 AM acetaminophen Take 650 mg by 0 A ctive (TYLENOL) 325 MG mouth every 6 (six) tablet hours as needed for mild pain, moderate pain, headaches or fever. albuterol (ACCUNEB) Take 2.5 mg by 0 Active 2.5 mg /3 mL (0.083 nebulization 2 %) nebulizer solution (two) times a day. polyethylene glycol Take 17 g by mouth 0 Active (MIRALAX) 17 gram daily. Hold for packet loose stools guaiFENesin Take 100 mg by 0 Act phu (ROBITUSSIN) 100 mg/5 mouth 4 (four) mL syrup times a day as needed for cough or congestion. omeprazole (PriLOSEC) Take 40 mg by mouth 0 Active 40 MG capsule daily. primidone (MYSOLINE) Take 50 mg by mouth 0 Active 50 MG tablet daily. folic acid/vit B Take by mouth. 0 Active complex and C (JUSTICE-RENUKA ORAL) loratadine (CLARITIN) Take 10 mg by mouth 0 Active 10 mg tablet daily. cholecalciferol, Take by mouth. 0 Active vitamin D3, (VITAMIN D3 ORAL) allopurinol Take 300 mg by 1 2 Dis continued (Med (ZYLOPRIM) 300 MG mouth once daily. 016 020 List Cleanup) tablet warfarin (COUMADIN) 5 Take 5 mg by mouth 1 Discontinued (Stop MG tablet daily. 017 020 Taking at Discharge) ranitidine (ZANTAC) Take 150 mg by 2 08/23 Discontinued (Med 150 MG tablet mouth once daily. 016 020 List Cleanup) triamcinolone Apply topically 2 0 Discontinued (Med (KENALOG) 0.1 % cream (two) times a day. 020 List Cleanup) sodium bicarbonate Take 325 mg by 0 Discontinued (Med 325 mg tablet mouth 4 (four) 020 L ist Cleanup) times a day. cholecalciferol, Take 50,000 Units 0 08/23 Discontinued (Med vitamin D3, 50,000 by mouth daily. 020 List Cleanup) unit capsule omeprazole (PriLOSEC) Take 40 mg by mouth 0 Discontinued (Med 40 MG capsule daily. 020 List C leanup) lysine 500 mg tablet Take by mouth 0 08/23 Discontinued (Med daily. 020 List Clean up) enssiyjzuymr-GTM-fyio Take by mouth. 0 12/18 Discontinued (Med aminophen 25-30-500 020 List Cleanup) mg tablet docusate sodium Take by mouth. 0 Discontinued (Med (STOOL SOFTENER ORAL) 020 List Cleanup) folic acid/vit B Take by mouth 0 Discontinued (Med complex and C daily. 020 List C leanup) (JUSTICE-RENUKA ORAL) ferrous sulfate (IRON Take by mouth. 0 12/18 Discontinued (Med ORAL) 020 List Clean up) DULoxetine (CYMBALTA) Take 20 mg by mouth 0 Discontinued (Med 20 MG capsule daily. 020 List C leanup) gabapentin Take 200 mg by 0 Disc ontinued (Stop (NEURONTIN) 100 mg mouth daily. 020 Taking at capsule Discharge) HYDROcodone-acetamino Take 1 tablet by 0 0 Discontinued (Stop phen (NORCO) 5-325 mg mouth every 4 020 Taking at per (four) hours as Disc harge) tabletIndications: needed for moderate acute pain pain .acute pain. hydrOXYzine (ATARAX) Take 25 mg by mouth 0 Discontinued (Stop 25 MG tablet every 6 (six) hours 020 Taking at as needed for Discha rge) itching. levETIRAcetam Take 250 mg by 0 2 D iscontinued (Stop (KEPPRA) 250 MG mouth 2 (two) times 020 020 Taking at tablet a day. Discharge) levETIRAcetam Take 500 mg by 0 D iscontinued (Stop (KEPPRA) 500 MG mouth daily. 020 020 T aking at tablet Discharge) polyethylene glycol Take 17 g by mouth 0 0 Discontinued (Stop (MIRALAX) 17 gram daily as needed for 02 0 Taking at packet constipation. Discha rge) dextromethorphan-guai Take 5 mL by mouth 0 Discontinued fenesin every 12 (twelve) 020 020 (ROBITUSSIN-DM) hours. 10-100 mg/5 mL liquid benzonatate Take 200 mg by 0 Dis continued (Med (TESSALON) 100 MG mouth 3 (three) 020 List Cleanup) capsule times a day. calcium carbonate Chew 2 tablets 0 Discontinued (TUMS) 200 mg calcium nightly. 020 (500 mg) chewable tablet levETIRAcetam Take 250 mg by 0 D iscontinued (Stop (KEPPRA) 250 MG mouth daily. 020 020 T aking at tablet Discharge) metoprolol succinate Take 25 mg by mouth 0 Discontinued (Stop XL (TOPROL-XL) 25 mg 2 (two) times a 020 Taking at 24 hr tablet day. Dischar ge) dextromethorphan-guai Take 5 mL by mouth 0 fenesin every 12 (twelve) 020 020 (ROBITUSSIN-DM) hours for 5 days. 10-100 mg/5 mL liquid polyethylene glycol Take 17 g by mouth 30 packet 0 2 0 Discontinued (Med (MIRALAX) 17 gram daily for 30 days. 020 020 List Cleanup) packet acetaminophen Take 2 tablets (650 0 Discontinued (Med (TYLENOL) 325 MG mg total) by mouth 020 020 List Cleanup) tablet every 6 (six) hours as needed for mild pain for up to 30 days. traMADoL (ULTRAM) 50 Take 1 tablet (50 40 tablet 0 0 mg tabletIndications: mg total) by mouth 020 020 acute pain every 6 (six) hours as needed for moderate pain for up to 10 days .acute pain. Active Problems Problem Noted Date Tremor 09/10/2019 Toxic metabolic encephalopathy 09/09/2019 CVA (cerebral vascular accident) 08/24/2019 Vision changes 08/23/2019 Right renal mass 07/01/2018 End stage renal disease 04/24/2018 Overview: Added automatically from request for kel[facility] vera [id number] Venous stasis dermatitis of both lower extremities Lymphedema of both lower extremities 04/04/2017 Encounters Date Type Specialty Care Team Description 02/24/2020 Office Visit Orthopedic Surgery Héctor Flores, Primary osteoarthritis of both shoulders (Primary Dx); Chronic pain of both shoulders; Adhesive capsul itis of both shoulders; 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 Travel 01/27/2020 Travel 09/09/2019 - Hospital Nephrology Haroon Harris Toxic metabolic encephalopathy (Primary Dx); 09/12/2019 Encounter MD Yusra Encephalopathy, unspecified; Joglekar, Tremor, unspeci fied; MD Kortney ESRD on hemodialysis (HCC); Mary Alice Oconnell MD Malignant hyper tensive urgency; Chronic congest phu heart failure, unspecified heart failure type (HCC); History of CVA (cerebrovascular accident) 09/08/2019 Telephone Cardiovascular Elo Boss MA 08/26/2019 Anesthesia Event General Surgery Princess Chen MD 08/26/2019 Surgery General Surgery Riley Viramontes AVF FI STULOGRAM MD Fan 08/24/2019 Telephone Cardiovascular Elo Boss MA 08/23/2019 - Hospital General Internal Guharoy, Vision wharton ges (Primary Dx); 09/01/2019 Encounter Medicine Lilliana Woodward MD Occasional tremors; Sabino Jiang, ESRD on hemod ialysis (HCC) Callie Palmer MD after 04/12/2019 Family History Medical History Relation Name Comments Heart disease Father Cancer Mother Cancer Sister Relation Name Status Comments Father Mother breast cancer Sister breast cancer Social History Tobacco Use Types Packs/Day Years Used Date Never Smoker Smokeless Tobacco: Never Used Alcohol Use Drinks/Week oz/Week Comments No Sex Assigned at Date Recorded Not on file Job Start Date Occupation Industry Not on file Not on file Not on file Travel History Travel Start Travel End No recent travel history available. Last Filed Vital Signs Vital Sign Reading Time Taken Comments Blood Pressure 132/60 09/12/2019 4:22 PM [employer]AT[employer]UTTING MACHINE OPERATOR Pulse 59 09/12/2019 4:22 PM [employer]WEAT[employer] CUTTING MACHINE OPERATOR Temperature 35.9 C (96.6 F) 09/12/2019 4:22 PM [employer]AT[employer] CUTTING MACHINE OPERATOR Respiratory Rate 18 09/12/2019 4:22 PM SWEATB[employer] CUTTING MACHINE OPERATOR Oxygen Saturation 95% 09/12/2019 4:22 PM SWEATB[employer] CUTTING MACHINE OPERATOR Inhaled Oxygen Concentration - - Weight 113 kg (249 lb) 02/24/2020 9:42 AM CDT Height 188 cm (6' 2") 02/24/2020 9:42 AM CDT Body Mass Index 31.97 02/24/2020 9:42 AM CDT Plan of Treatment Date Type Specialty Care Team Description 04/20/2020 Office Visit Orthopedic Surgery Héctor Flores MD [address] [facility] [address] [place], [place] [address] [phone] Health Maintenance Due Date Last Done Comments DIABETIC RETINAL EYE EXAM 1935 DIABETIC FOOT EXAM 1945 URINE MICROALBUMIN 1947 SHINGLES VACCINES (#1) 1987 65+ PNEUMOCOCCAL VACCINE (1 of 2 - PCV13) 2002 INFLUENZA VACCINE 05/19/2020 05/26/2018 Implants Implanted Type Area Chemist Organic Device Shelf Model / Identifier Expiration Serial / Date Lot Clip Ligtng Hem-O-Mellissa Endoscpc Aplr Plymr Lg - [id number] Surgic al N/A: N/A WECK CLOSURE [id number] / Implanted: 07/01/2018 at [facility] (Quantity not on file) Implan ts; SYSTEMS / Expanders; Extenders; Surgical Wires Birds Nest Filter-09/19/1994 Implanted: Qty: 1 on 09/19/1994 Procedures Procedure Name Priority Date/Time Associated Diagnosis Comme nts XR SHOULDERS BILATERAL Routine 02/24/2020 9:53 Chronic pain o f both Results for this AM CDT shoulders procedure are i n the results section. RI ARTHROCENTESIS Routine 02/24/2020 9:30 Primary Result s for this ASPIR&/INJ MAJOR AM CDT osteoarthritis of proced ure are in JT/BURSA W/O US both shoulders the result s section. RI ARTHROCENTESIS Routine 02/24/2020 9:30 Primary Result s for this ASPIR&/INJ MAJOR AM CDT osteoarthritis of proced ure are in JT/BURSA W/O US both shoulders the result s section. ESTIMATED GFR Routine 09/12/2019 12:00 Results fo r this AM [employer] CUTTING MACHINE OPERATOR procedure are i n the results section. BASIC METABOLIC PANEL Routine 09/12/2019 12:00 Re sults for this AM [employer] CUTTING MACHINE OPERATOR procedure are i n the results section. HEMODIALYSIS Routine 09/11/2019 6:33 PM SWEATB[employer] CUTTING MACHINE OPERATOR EEG AWAKE/ASLEEP LESS Routine 09/10/2019 10:55 Re sults for this THAN 41 MIN PM [employer] CUTTING MACHINE OPERATOR procedure are i n the results section. MRA NECK WO CONTRAST Routine 09/10/2019 2:37 Res ults for this PM [employer]TING MACHINE OPERATOR procedure are i n the results section. MRA HEAD WO CONTRAST Routine 09/10/2019 2:25 Res ults for this PM [employer]TING MACHINE OPERATOR procedure are i n the results section. MRI BRAIN WO CONTRAST Routine 09/10/2019 2:05 Re sults for this PM [employer]UTTING MACHINE OPERATOR procedure are i n the results section. GABAPENTIN LEVEL Routine 09/10/2019 7:35 Results for this AM [employer] CUTTING MACHINE OPERATOR procedure are i n the results section. CREATINE KINASE, TOTAL Routine 09/10/2019 7:35 R esults for this (CPK) AM [employer] CUTTING MACHINE OPERATOR procedure are i n the results section. AMMONIA LEVEL Routine 09/10/2019 7:35 Results fo r this AM [employer] CUTTING MACHINE OPERATOR procedure are i n the results section. LACTIC ACID LEVEL Routine 09/10/2019 6:41 Result s for this AM [employer] CUTTING MACHINE OPERATOR procedure are i n the results section. VITAMIN D 25 HYDROXY STAT 09/09/2019 8:46 Res ults for this LEVEL PM [employer] CUTTING MACHINE OPERATOR procedure are i n the results section. HIV AG/AB COMBINATION STAT 09/09/2019 8:46 Re sults for this PM [employer] CUTTING MACHINE OPERATOR procedure are i n the results section. SYPHILIS TOTAL STAT 09/09/2019 8:46 Results f or this ANTIBODY PM [employer]TING MACHINE OPERATOR procedure are i n the results section. T3 STAT 09/09/2019 8:46 Results for this PM [employer] CUTTING MACHINE OPERATOR procedure are i n the results section. T4, FREE STAT 09/09/2019 8:46 Results for this PM [employer] CUTTING MACHINE OPERATOR procedure are i n the results section. THYROID STIMULATING STAT 09/09/2019 8:46 Resu lts for this HORMONE PM [employer]TING MACHINE OPERATOR procedure are i n the results section. RHEUMATOID FACTOR STAT 09/09/2019 8:46 Result s for this PM [employer] CUTTING MACHINE OPERATOR procedure are i n the results section. SEDIMENTATION RATE STAT 09/09/2019 8:46 Resul ts for this PM [employer] CUTTING MACHINE OPERATOR procedure are i n the results section. CORTISOL LEVEL, RANDOM STAT 09/09/2019 8:46 R esults for this PM [employer] CUTTING MACHINE OPERATOR procedure are i n the results section. HOMOCYSTINE, PLASMA STAT 09/09/2019 8:46 Resu lts for this PM [employer] CUTTING MACHINE OPERATOR procedure are i n the results section. C-REACTIVE PROTEIN STAT 09/09/2019 8:46 Resul ts for this PM [employer]WE[employer] CUTTING MACHINE OPERATOR procedure are i n the results section. VITAMIN B12 LEVEL STAT 09/09/2019 8:46 Result s for this PM [employer] CUTTING MACHINE OPERATOR procedure are i n the results section. FOLATE LEVEL STAT 09/09/2019 8:46 Results for this PM [employer] CUTTING MACHINE OPERATOR procedure are i n the results section. DORINA STAT 09/09/2019 8:46 Results for this PM [employer] CUTTING MACHINE OPERATOR procedure are i n the results section. CT HEAD WO CONTRAST STAT 09/09/2019 6:17 Resu lts for this PM [employer] CUTTING MACHINE OPERATOR procedure are i n the results section. HEMODIALYSIS Routine 09/09/2019 6:02 PM SWEAT[employer] CUTTING MACHINE OPERATOR XR CHEST 1 VW PORTABLE STAT 09/09/2019 2:14 R esults for this PM [employer] CUTTING MACHINE OPERATOR procedure are i n the results section. ESTIMATED GFR STAT 09/09/2019 2:14 Results fo r this PM [employer] C[employer]TING MACHINE OPERATOR procedure are i n the results section. B NATRIURETIC PEPTIDE STAT 09/09/2019 2:14 Re sults for this PM [employer] CUTTING MACHINE OPERATOR procedure are i n the results section. MAGNESIUM LEVEL STAT 09/09/2019 2:14 Results for this PM [employer] CUTTING MACHINE OPERATOR procedure are i n the results section. PARTIAL THROMBOPLASTIN STAT 09/09/2019 2:14 R esults for this TIME (PTT) PM [employer]WE[employer] CUTTING MACHINE OPERATOR procedure are i n the results section. PROTHROMBIN TIME WITH STAT 09/09/2019 2:14 Re sults for this INR PM [employer] CUTTING MACHINE OPERATOR procedure are i n the results section. HC COMPLETE BLD COUNT STAT 09/09/2019 2:14 Re sults for this W/AUTO DIFF PM [employer] CUTTING MACHINE OPERATOR procedure are i n the results section. COMPREHENSIVE STAT 09/09/2019 2:14 Results fo r this METABOLIC PANEL PM [employer] CUTTING MACHINE OPERATOR procedure ar e in the results section. ECG 12-LEAD STAT 09/09/2019 2:06 Results for this PM [employer] CUTTING MACHINE OPERATOR procedure are i n the results section. RI CRITICAL CARE, E/M Routine 09/09/2019 1:33 Re sults for this 30-74 MINUTES PM [employer] CUTTING MACHINE OPERATOR procedure are in the results section. HEMODIALYSIS Routine 09/01/2019 11:40 AM SWEATBAND CUTTING MACHINE OPERATOR PROTHROMBIN TIME WITH Routine 09/01/2019 4:01 Re sults for this INR AM [employer] CUTTING MACHINE OPERATOR procedure are i n the results section. ANTI XA, Routine 09/01/2019 4:01 Results for this UNFRACTIONATED AM [employer] CUTTING MACHINE OPERATOR procedure are in the results section. ANTI XA, Routine 08/31/2019 4:09 Results for this UNFRACTIONATED AM SWE[employer] CUTTING MACHINE OPERATOR procedure are in the results section. ESTIMATED GFR Routine 08/31/2019 4:09 Results fo r this AM [employer] CUTTING MACHINE OPERATOR procedure are i n the results section. HC COMPLETE BLD COUNT Routine 08/31/2019 4:09 Re sults for this W/AUTO DIFF AM SWE[employer] CUTTING MACHINE OPERATOR procedure are i n the results section. BASIC METABOLIC PANEL Routine 08/31/2019 4:09 Re sults for this AM S[employer] CUTTING MACHINE OPERATOR procedure are i n the results section. PROTHROMBIN TIME WITH Routine 08/31/2019 4:09 Re sults for this INR AM SWEAT[employer] CUTTING MACHINE OPERATOR procedure are i n the results section. ANTI XA, Routine 08/30/2019 9:10 Results for this UNFRACTIONATED PM SWEAT[employer]AND CUTTING MACHINE OPERATOR procedure are in the results section. ANTI XA, Routine 08/30/2019 2:45 Results for this UNFRACTIONATED PM SWEATBAND CUTTING MACHINE OPERATOR procedure are in the results section. ESTIMATED GFR Routine 08/30/2019 6:20 Results fo r this AM SWE[employer] CUTTING MACHINE OPERATOR procedure are i n the results section. ANTI XA, Routine 08/30/2019 6:20 Results for this UNFRACTIONATED AM SWEAT[employer]AND CUTTING MACHINE OPERATOR procedure are in the results section. COMPREHENSIVE Routine 08/30/2019 6:20 Results fo r this METABOLIC PANEL AM SWE[employer] CUTTING MACHINE OPERATOR procedure ar e in the results section. PROTHROMBIN TIME WITH Routine 08/30/2019 6:20 Re sults for this INR AM SWE[employer] CUTTING MACHINE OPERATOR procedure are i n the results section. ANTI XA, Routine 08/29/2019 6:59 Results for this UNFRACTIONATED PM SWE[employer]AND CUTTING MACHINE OPERATOR procedure are in the results section. ESTIMATED GFR Routine 08/29/2019 1:43 Results fo r this PM SWE[employer] CUTTING MACHINE OPERATOR procedure are i n the results section. BASIC METABOLIC PANEL Routine 08/29/2019 1:43 Re sults for this PM SWE[employer]AND CUTTING MACHINE OPERATOR procedure are i n the results section. ANTI XA, Routine 08/29/2019 1:16 Results for this UNFRACTIONATED PM SWEATBAND CUTTING MACHINE OPERATOR procedure are in the results section. HEMODIALYSIS Routine 08/29/2019 10:19 AM SWEATBAND CUTTING MACHINE OPERATOR ESTIMATED GFR Routine 08/29/2019 4:50 Results fo r this AM SWEATBAND CUTTING MACHINE OPERATOR procedure are i n the results section. PROTHROMBIN TIME WITH Routine 08/29/2019 4:50 Re sults for this INR AM SWEATBAND CUTTING MACHINE OPERATOR procedure are i n the results section. ANTI XA, Routine 08/29/2019 4:50 Results for this UNFRACTIONATED AM SWEATBAND CUTTING MACHINE OPERATOR procedure are in the results section. BASIC METABOLIC PANEL Routine 08/29/2019 4:50 Re sults for this AM SWEAT[employer] CUTTING MACHINE OPERATOR procedure are i n the results section. ESTIMATED GFR Routine 08/28/2019 5:01 Results fo r this AM SWEATBAND CUTTING MACHINE OPERATOR procedure are i n the results section. ANTI XA, Routine 08/28/2019 5:01 Results for this UNFRACTIONATED AM SWEATBAND CUTTING MACHINE OPERATOR procedure are in the results section. PROTHROMBIN TIME WITH Routine 08/28/2019 5:01 Re sults for this INR AM SWE[employer]AND CUTTING MACHINE OPERATOR procedure are i n the results section. BASIC METABOLIC PANEL Routine 08/28/2019 5:01 Re sults for this AM SWEAT[employer] CUTTING MACHINE OPERATOR procedure are i n the results section. HC COMPLETE BLD COUNT Routine 08/28/2019 5:01 Re sults for this W/AUTO DIFF AM SWE[employer] CUTTING MACHINE OPERATOR procedure are i n the results section. ANTI XA, Routine 08/27/2019 10:10 Results for this UNFRACTIONATED PM SWEAT[employer]AND CUTTING MACHINE OPERATOR procedure are in the results section. ANTI XA, Routine 08/27/2019 3:10 Results for this UNFRACTIONATED PM SWE[employer] CUTTING MACHINE OPERATOR procedure are in the results section. XR CHEST 1 VW PORTABLE Routine 08/27/2019 2:09 R esults for this PM S[employer] CUTTING MACHINE OPERATOR procedure are i n the results section. TOTAL IRON BINDING Routine 08/27/2019 11:00 Resul ts for this CAPACITY AM S[employer] CUTTING MACHINE OPERATOR procedure are i n the results section. FERRITIN LEVEL Routine 08/27/2019 11:00 Results f or this AM SWE[employer]BAND CUTTING MACHINE OPERATOR procedure are i n the results section. HEMODIALYSIS Routine 08/27/2019 7:43 AM SWEATBAND CUTTING MACHINE OPERATOR ANTI XA, Routine 08/27/2019 4:00 Results for this UNFRACTIONATED AM SWEATBAND CUTTING MACHINE OPERATOR procedure are in the results section. CBC HEMOGRAM Routine 08/27/2019 4:00 Results for this AM SWE[employer]BAND CUTTING MACHINE OPERATOR procedure are i n the results section. ANTI XA, Routine 08/26/2019 8:00 Results for this UNFRACTIONATED PM SWEATBAND CUTTING MACHINE OPERATOR procedure are in the results section. OR FL < 1 HOUR Routine 08/26/2019 7:17 Results f or this PM SWE[employer] CUTTING MACHINE OPERATOR procedure are i n the results section. ANTI XA, Routine 08/26/2019 11:35 Results for this UNFRACTIONATED AM SWE[employer] CUTTING MACHINE OPERATOR procedure are in the results section. ANTI XA, Routine 08/26/2019 5:15 Results for this UNFRACTIONATED AM SWEAT[employer] CUTTING MACHINE OPERATOR procedure are in the results section. ESTIMATED GFR Routine 08/26/2019 5:15 Results fo r this AM S[employer] CUTTING MACHINE OPERATOR procedure are i n the results section. PROTHROMBIN TIME WITH Routine 08/26/2019 5:15 Re sults for this INR AM S[employer] CUTTING MACHINE OPERATOR procedure are i n the results section. HC COMPLETE BLD COUNT Routine 08/26/2019 5:15 Re sults for this W/AUTO DIFF AM S[employer] CUTTING MACHINE OPERATOR procedure are i n the results section. BASIC METABOLIC PANEL Routine 08/26/2019 5:15 Re sults for this AM SWE[employer] CUTTING MACHINE OPERATOR procedure are i n the results section. PARTIAL THROMBOPLASTIN Routine 08/26/2019 4:15 R esults for this TIME (PTT) AM SWE[employer] CUTTING MACHINE OPERATOR procedure are i n the results section. TYPE AND SCREEN Routine 08/26/2019 4:15 Results for this AM S[employer] CUTTING MACHINE OPERATOR procedure are i n the results section. ANTI XA, Routine 08/25/2019 8:30 Results for this UNFRACTIONATED PM SWE[employer] CUTTING MACHINE OPERATOR procedure are in the results section. COPPER LEVEL, SERUM Routine 08/25/2019 11:30 Resu lts for this AM SWE[employer]AND CUTTING MACHINE OPERATOR procedure are i n the results section. ANTI XA, Routine 08/25/2019 11:30 Results for this UNFRACTIONATED AM SWE[employer]AND CUTTING MACHINE OPERATOR procedure are in the results section. HEPATITIS B SURFACE Routine 08/25/2019 8:00 Resu lts for this ANTIGEN AM SWE[employer] CUTTING MACHINE OPERATOR procedure are i n the results section. HEPATITIS B SURFACE Routine 08/25/2019 8:00 Resu lts for this AB, QUANTITATIVE AM S[employer] CUTTING MACHINE OPERATOR procedure a re in the results section. HEPATITIS B SURFACE Routine 08/25/2019 8:00 Resu lts for this ANTIBODY AM SWE[employer]BAND CUTTING MACHINE OPERATOR procedure are i n the results section. ANTI XA, STAT 08/25/2019 4:15 Results for this UNFRACTIONATED AM SWE[employer]BAND CUTTING MACHINE OPERATOR procedure are in the results section. CBC HEMOGRAM Routine 08/25/2019 4:15 Results for this AM SWEATBAND CUTTING MACHINE OPERATOR procedure are i n the results section. ANTI XA, Routine 08/24/2019 8:20 Results for this UNFRACTIONATED PM SWEATBAND CUTTING MACHINE OPERATOR procedure are in the results section. PARTIAL THROMBOPLASTIN Routine 08/24/2019 8:20 R esults for this TIME (PTT) PM SWE[employer] CUTTING MACHINE OPERATOR procedure are i n the results section. PROTHROMBIN TIME WITH Routine 08/24/2019 8:20 Re sults for this INR PM SWEATBAND CUTTING MACHINE OPERATOR procedure are i n the results section. USPV HEMODIALYSIS Routine 08/24/2019 4:59 Result s for this ACCESS PM [employer] CUTTING MACHINE OPERATOR procedure are i n the results section. HEMODIALYSIS Routine 08/24/2019 4:56 PM SWEATBAND CUTTING MACHINE OPERATOR ESTIMATED GFR Routine 08/24/2019 3:55 Results fo r this AM SWE[employer]BAND CUTTING MACHINE OPERATOR procedure are i n the results section. HEMOGLOBIN A1C Routine 08/24/2019 3:55 Results f or this AM SWEATBAND CUTTING MACHINE OPERATOR procedure are i n the results section. LIPID PANEL Routine 08/24/2019 3:55 Results for this AM SWEATBAND CUTTING MACHINE OPERATOR procedure are i n the results section. HC COMPLETE BLD COUNT Routine 08/24/2019 3:55 Re sults for this W/AUTO DIFF AM SWEATBAND CUTTING MACHINE OPERATOR procedure are i n the results section. COMPREHENSIVE Routine 08/24/2019 3:55 Results fo r this METABOLIC PANEL AM SWEATBAND CUTTING MACHINE OPERATOR procedure ar e in the results section. TTE COMPLETE, WO Routine 08/24/2019 2:35 Results for this CONTRAST, W DOPPLER AM SWEATBAND CUTTING MACHINE OPERATOR procedur e are in ([id number]) the results section. TROPONIN Timed 08/24/2019 12:27 Results for this AM SWEATBAND CUTTING MACHINE OPERATOR procedure are i n the results section. ARTERIAL BLOOD GAS Routine 08/23/2019 11:10 Resul ts for this PM SWEATBAND CUTTING MACHINE OPERATOR procedure are i n the results section. ECG 12-LEAD Routine 08/23/2019 9:31 Results for this PM SWEATBAND CUTTING MACHINE OPERATOR procedure are i n the results section. TROPONIN Timed 08/23/2019 9:15 Results for this PM SWEATBAND CUTTING MACHINE OPERATOR procedure are i n the results section. RESPIRATORY PATHOGEN Routine 08/23/2019 9:10 Res ults for this PANEL PM SWEATBAND CUTTING MACHINE OPERATOR procedure are i n the results section. INFLUENZA ANTIGEN Routine 08/23/2019 9:10 Result s for this TEST, REFLEX NEGATIVE PM SWEATBAND CUTTING MACHINE OPERATOR proced ure are in TO RPP the results section. MRA NECK WO CONTRAST Routine 08/23/2019 7:12 Res ults for this PM SWEATBAND CUTTING MACHINE OPERATOR procedure are i n the results section. MRA HEAD WO CONTRAST Routine 08/23/2019 6:50 Res ults for this PM SWEATBAND CUTTING MACHINE OPERATOR procedure are i n the results section. MRI BRAIN WO CONTRAST Routine 08/23/2019 6:50 Re sults for this PM SWEATBAND CUTTING MACHINE OPERATOR procedure are i n the results section. COPPER LEVEL, SERUM Routine 08/23/2019 5:45 Resu lts for this PM SWEATBAND CUTTING MACHINE OPERATOR procedure are i n the results section. VITAMIN B1 LEVEL, Routine 08/23/2019 5:45 Result s for this WHOLE BLOOD PM SWEATBAND CUTTING MACHINE OPERATOR procedure are i n the results section. VITAMIN B12 LEVEL Routine 08/23/2019 5:45 Result s for this PM SWEATBAND CUTTING MACHINE OPERATOR procedure are i n the results section. PROTHROMBIN TIME WITH Routine 08/23/2019 5:45 Re sults for this INR PM SWEATBAND CUTTING MACHINE OPERATOR procedure are i n the results section. XR CHEST 1 VW PORTABLE Routine 08/23/2019 4:02 R esults for this PM SWEATBAND CUTTING MACHINE OPERATOR procedure are i n the results section. CT HEAD WO CONTRAST STAT 08/23/2019 12:15 Resu lts for this PM SWEATBAND CUTTING MACHINE OPERATOR procedure are i n the results section. THYROID STIMULATING STAT 08/23/2019 11:36 Resu lts for this HORMONE AM SWEATBAND CUTTING MACHINE OPERATOR procedure are i n the results section. ESTIMATED GFR STAT 08/23/2019 11:36 Results fo r this AM SWEATBAND CUTTING MACHINE OPERATOR procedure are i n the results section. TROPONIN STAT 08/23/2019 11:36 Results for this AM SWEATBAND CUTTING MACHINE OPERATOR procedure are i n the results section. COMPREHENSIVE STAT 08/23/2019 11:36 Results fo r this METABOLIC PANEL AM SWEATBAND CUTTING MACHINE OPERATOR procedure ar e in the results section. HC COMPLETE BLD COUNT STAT 08/23/2019 11:36 Re sults for this W/AUTO DIFF AM SWEATBAND CUTTING MACHINE OPERATOR procedure are i n the results section. AMMONIA LEVEL STAT 08/23/2019 11:35 Results fo r this AM SWEATBAND CUTTING MACHINE OPERATOR procedure are i n the results section. B NATRIURETIC PEPTIDE STAT 08/23/2019 11:35 Re sults for this AM SWEATBAND CUTTING MACHINE OPERATOR procedure are i n the results section. ECG 12-LEAD STAT 08/23/2019 11:24 Results for this AM SWEATBAND CUTTING MACHINE OPERATOR procedure are i n the results section. ECG ED PRELIMINARY Routine 08/23/2019 11:15 Resul ts for this INTERPRETATION AM SWEATBAND CUTTING MACHINE OPERATOR procedure are in the results section. after 04/12/2019 Results XR Shoulders Bilateral (02/24/2020 9:53 AM CDT) Specimen Narrative Performed At This result has an attachment that is no t available. 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 Performing Organization Address City/State/Zipcode Phone Number [facility] [address] [place] [address] Right shoulder cortisone injection (02/24/2020 9:30 AM CDT) Narrative Performed At Héctor Flores MD 02/24/2020 12:53 P M Right shoulder cortisone injection Consent given by: patient Site marked: site marked Timeout: Immediately prior to procedure a time out was called to verify the correct patient, procedure, equipmen t, direct support professional and site/side marked as required Supporting Documentation Indications: pain Procedure Details Preparation: Patient was prepped and kalyn ped in the usual sterile fashion Ultrasound guided: no Platelet Rich Plasma Used: no PRP Used Location: shoulder - R subacromial bursa Right side: Needle size: 25 G (25 gauge) Approach: anterolateral Right shoulder medications administered: 1 mL lidocain e 10 mg/mL (1 %); 6 mg betamethasone acetate & sodium phosph ate 6 mg/mL Aspirate amount: 0 mL Patient tolerance: patient tolerated the procedure wel l with no immediate complications Shoulder left cortisone injection (02/24/2020 9:30 AM CDT) Narrative Performed At Héctor Flores MD 02/24/2020 12:53 P M Shoulder left cortisone injection Consent given by: patient Site marked: site marked Timeout: Immediately prior to procedure a time out was called to verify the correct patient, procedure, equipmen t, direct support professional and site/side marked as required Supporting Documentation Indications: pain Procedure Details Preparation: Patient was prepped and kalyn ped in the usual sterile fashion Ultrasound guided: no Platelet Rich Plasma Used: no PRP Used Location: shoulder - L subacromial bursa Left side: Needle size: 25 G (25 gauge) Approach: anterolateral Left shoulder medications administered: 6 mg betamethasone acetate & sodium phosphate 6 mg/mL; 1 mL lidocaine 10 mg/mL (1 %) Aspirate amount: 0 mL Patient tolerance: patient tolerated the procedure wel l with no immediate complications Estimated GFR (09/12/2019 12:00 AM SWEATBAND CUTTING MACHINE OPERATOR)Only the most recent of10 resultswithin the time period is included. Estimated GFR 6 (A) mL/min/1.73 [facility] Comment: m2 HOSPITAL Catergory Units Interpretation G1 >=90 Normal or high G2 60-89 Mildly decreased G3a 45-59 Mildly to moderately decreas ed G3b 30-44 Moderately to severely decre ased G4 15-29 Severely decreased G5 <15 Kidney failure The eGFR was calculated using the Chronic Kidney Disea se Epidemiology Collaboration (CKD-EPI) equation. Interpretation is based on recommendations of the National Kidney Foundation-Kidney Disease Outcomes David lity Initiative (NKF-KDOQI) published in 2014. Specimen Plasma specimen Performing Organization Address City/[facility] Phone Number [facility] DEPARTMENT OF PATHOLOGY AND [address] [place] [phone] Basic metabolic panel (09/12/2019 12:00 AM SWEATBAND CUTTING MACHINE OPERATOR)Only the most recent of6 results within the time period is included. Pathologist Sig nature Sodium 141 135 - 148 mEq/L [facility] Potassium 4.5 3.5 - 5.0 mEq/L [facility] Chloride 101 98 - 112 mEq/L [facility] CO2 29 24 - 31 mEq/L [facility] Anion gap 11@ANIO 7 - 15 mEq/L [facility] BUN 48 (H) 8 - 23 mg/dL [facility] Creatinine 7.38 (H) 0.70 - 1.20 mg/dL [facility] Glucose 87 65 - 99 mg/dL [facility] Calcium 9.8 8.8 - 10.2 mg/dL [facility] Specimen Plasma specimen Performing Organization Address City/[facility]/Zipcode Phone Number [facility] DEPARTMENT OF PATHOLOGY AND [address] [place], [place] [address] [address] [address] EEG (routine) (09/10/2019 10:55 PM SWEATBAND CUTTING MACHINE OPERATOR) Narrative Performed At This result has an attachment that is no t available. EEG AWAKE AND ASLEEP Date of Service: 09/10/2019 Awake Recordings: The occipital dominant rhythm is 7-8 Hz and is poorly sustained. 4-5 Hz and intermittent 1.5-3 Hz activity i s present in all regions. 18-22 Hz activity was present in all regions. Sleep Recording: No epileptiform activity was recorded . Hyperventilation: Was not performed. Photic Stimulation: Was not performed. Impression: The findings are consistent with a diffuse disturbance in brain function. No seizures occurred. ICD-10 Code: R569 MRA Neck Wo Contrast (09/10/2019 2:37 PM SWEATBAND CUTTING MACHINE OPERATOR)Only the most recent of2 results within the time period is included. Specimen Narrative Performed At EXAMINATION: [facility]ECK [facility] CL[facility]ICAL H[facility]: altered mental statu s COMPARISON: None. TECHNIQUE: Neck MRA using 2D and 3D cbwe-[id number]-[id number] technique with multi-planar MIP and 3D reconstruction. FINDINGS: There is normal flow-related signal with no occlusion along bilateral common, internal, and external carotid arteries. There is mild calcific atherosclerotic plaque without significant stenosis ac cording to the NASCET criteria (0%). There is normal flow-related signal with no significan t stenosis or occlusion along bilateral vertebral arteries. The left vertebral artery is dominant. IMPRESSION: Unremarkable neck MRA with no significant carotid or v ertebral artery stenosis. [id number] Procedure Note Interface, Radiology Results Incoming - 09/10/2019 3:25 PM SWEATBAND CUTTING MACHINE OPERATOR EXAMINATION: MRA NECK WO CONTRAST CLINICAL HISTORY: altered mental status COMPARISON: None. TECHNIQUE: Neck MRA using 2D and 3D wkty-lq-ncckur technique with multi-planar MIP and 3D reconstruction. FINDINGS: There is normal flow-related signal with no occlusion along bilateral common, internal, and external carotid arteries. There is mild calcific atherosclerotic plaque without significant stenosis according to the NASCET criteria (0%). There is normal flow-related signal with no significant stenosis or occlusion along bilateral vertebral arteries. The left vertebral artery is dominant. IMPRESSION: Unremarkable neck MRA with no significan t carotid or vertebral artery stenosis. [id number] Performing Organization Address City/State/Zipcode Phone Number [facility] [address] [place] [address] MRA Head Wo Contrast (09/10/2019 2:25 PM SWEATBAND CUTTING MACHINE OPERATOR)Only the most recent of2 results within the time period is included. Specimen Narrative Performed At This result has an attachment that is no t available. EXAMINATION: MRA HEAD WO CONTRAST [facility] CLINICAL HISTORY: altered mental status COMPARISON: MRA head 08/23/2019 TECHNIQUE: [id number] MRA images of the [place] vessels were obtained with multiplanar and 3-D reconstructive algorithms. FINDINGS: Motion degradation limits the sensitivity of evaluatio n. The major branches of the anterior and p osterior arterial circulations of the brain appear patent without evidence of aneurysm or hemodynamically significant stenosis. Bilateral posterior communicating arteries. Slight dominance of the left vertebral artery. Diminutive right A1 segment. IMPRESSION: No aneurysm or hemodynamically significa nt stenosis of the intracranial arterial circulation. [id number] Procedure Note Hm Interface, Radiology Results Incoming - 09/10/2019 3:34 PM SWEATBAND CUTTING MACHINE OPERATOR EXAMINATION: MRA HEAD WO CONTRAST CLINICAL HISTORY: altered mental status COMPARISON: MRA head 08/23/2019 TECHNIQUE: [id number] MRA images of the [place] vessels were obtained with multiplanar and 3-D reconstructive algorithms. FINDINGS: Motion degradation limits the sensitivit y of evaluation. The major branches of the anterior and p osterior arterial circulations of the brain appear patent without evidence of aneurysm or hemodynamically significant stenosis. Bilateral posterior communicating arteries. Slight dominance of the left vertebral artery. Diminutive right A1 segment. IMPRESSION: No aneurysm or hemodynamically significa nt stenosis of the intracranial arterial circulation. [id number] Performing Organization Address City/State/Zipcode Phone Number [facility] [address] [place] [address] MRI Brain Wo Contrast (09/10/2019 2:05 PM SWEATBAND CUTTING MACHINE OPERATOR)Only the most recent of2 results within the time period is included. Specimen Narrative Performed At EXAMINATION: MRI BRAIN WO CONTRAST [facility] CLINICAL HISTORY: Altered level of consciousness (LOC) unexplained COMPARISON: CT brain September 09, 2019 FINDINGS: Diffusion images demonstrate no evidenc e of acute anemia. Conventional images demonstrate mild nonspecific cereb ral white matter microvascular changes. There is at least moderate enlargement of the lateral ventricles although there is minimal temporal horn prominence. Th ere is relatively little enlargement of the third ventricle and minimal if any enlargement of the fourth ventricle. The cerebral aqueduct is normal in appearance. There is mild to mod erate cerebral cortical volume loss. These findings would suggest vol ume loss which is largely central. The possibility of normal pressure hy drocephalus is felt to be less likely. There is mild to moderate cerebellar v olume loss. There is minimal mucosal thickening in the ethmoid sin us and right mastoid.. IMPRESSION: Chronic microvascular white matter changes and volume loss without acute abnormality and without the change from the prior study. [id number] Procedure Note Hm Interface, Radiology Results Incoming - 09/10/2019 3:16 PM SWEATBAND CUTTING MACHINE OPERATOR EXAMINATION: MRI BRAIN WO CONTRAST CLINICAL HISTORY: Altered level of co nsciousness (LOC) unexplained COMPARISON: CT brain September 09, 2019 FINDINGS: Diffusion images demonstrate no evidenc e of acute anemia. Conventional images demonstrate mild non specific cerebral white matter microvascular changes. There is at least moderate enlargement o f the lateral ventricles although there is minimal temporal horn prominence. There is relatively little enlargement of the third ventricle and minimal if any enlargement of the fourth ventricle. The cerebral aqueduct is normal in appearance. There is mild to moderate cerebral cortical volume loss. These findings would suggest volume loss which is largely central. The possibility of normal pressure hydrocephalus is felt to be less likely. There is mild to moderate cerebellar vo lume loss. There is minimal mucosal thickening in t he ethmoid sinus and right mastoid.. IMPRESSION: Chronic microvascular white matter treviño es and volume loss without acute abnormality and without the change from the prior study. [id number] Performing Organization Address City/[facility]/Zipcode Phone Number [facility] [address] [place] [address] Gabapentin level (09/10/2019 7:35 AM SWEATBAND CUTTING MACHINE OPERATOR) Gabapentin 6.5 2.0 - 20.0 [facility] Comment: ug/mL INTERPRETIVE INFORMATION: Gabapentin Therapeutic Range: 2 - 20 ug/mL Toxic: Not well established Pharmacokinetics of gabapentin vary widely among patie nts, particularly those with compromised renal function. Ad verse effects may include somnolence, dizziness, ataxia, and fatigue. Test developed and characteristics determined by [email or web address]. See Compliance Statement B: [email or web address] Performed by [facility], [address] [place] [address] [email or web address], Derik Goncalves MD, Lab. Director Specimen Serum Performing Organization Address City/[facility]/Zipcode Phone Number [facility] [address] [place] [address] [facility] [address] [place] [address] Creatine kinase, total (CPK) (09/10/2019 7:35 AM SWEATBAND CUTTING MACHINE OPERATOR) Pathologist Sig [facility] Creatine kinase 19 (L) 39 - 308 U/L [facility] L Specimen Plasma specimen Performing Organization Address [facility] Phone Number [facility] DEPARTMENT OF PATHOLOGY AND [address] [place] [address] [place] [phone] Ammonia level (09/10/2019 7:35 AM SWEATBAND CUTTING MACHINE OPERATOR)Only the most recent of2 resultswithin the time period is included. Pathologist Sig [facility] Ammonia 21 16 - 60 umol/L [facility] Specimen Blood Performing Organization Address [facility] Phone Number [facility] DEPARTMENT OF PATHOLOGY AND [address] [place] [phone] [place] [phone] Lactic acid level (09/10/2019 6:41 AM SWEATBAND CUTTING MACHINE OPERATOR) Pathologist [facility] Lactic acid 0.7 0.5 - 2.2 mmol/L [facility] AL Specimen Blood Performing Organization Address [facility] Phone Number [facility] DEPARTMENT OF PATHOLOGY AND [address] [place] [phone] Syphilis total antibody (09/09/2019 8:46 PM SWEATBAND CUTTING MACHINE OPERATOR) Syphilis total Non-reactiveComment Non-reactive [facility] antibody : No serological HOSPITAL evidence of syphilis infection. Specimen Serum Performing Organization Address [facility] Phone Number [facility] DEPARTMENT OF PATHOLOGY AND [address] [place] [phone] [place] [phone] HIV Ag/Ab combination (09/09/2019 8:46 PM SWEATBAND CUTTING MACHINE OPERATOR) [facility] HIV Ag/Ab combination Non-reactive Non-reactive [facility] Specimen Blood Performing Organization Address [facility] Phone Number [facility] DEPARTMENT OF PATHOLOGY AND [address] [place] [address] [place] [phone] Homocystine, plasma (09/09/2019 8:46 PM SWEATBAND CUTTING MACHINE OPERATOR) [facility] Homocysteine 15.5 (H) 0.0 - 15.0 [facility] Comment: umol/L [facility] The risk for coronary vascular disease increases progr essively with homocysteine concentration. A 3.4 times greater risk is associated with a homocysteine concentration of greate r than 15.8 umol/L as compared to a concentration below 14.1 umol/L. Specimen Plasma specimen Performing Organization Address City/[facility]/Zipcode Phone Number [facility] DEPARTMENT OF PATHOLOGY AND [address] [place] [address] [phone] [address] Vitamin D 25 hydroxy level (09/09/2019 8:46 PM SWEATBAND CUTTING MACHINE OPERATOR) Pathologist [facility] Vitamin D, 47.3 30.0 - 150.0 [facility] 25-hydroxy Comment: ng/mL [facility] This assay reports the sum of 25-hydroxy vitamin D3 an d 25-hydroxy vitamin D2. Reference range: 0-17 years: Deficiency: less than 20ng/mL Optimum level: greater than or equal to 20 ng/mL. 18 years and older: Deficiency: less than 20ng/mL Insufficiency: 20-29 ng/mL Optimum Level: 30-80 ng/mL The assay reportable range is 3.4 155.9 ng/mL. Level s higher than 150 ng/mL may be associated with toxicity. If toxicity is clinically suspected and the reported r esult is >155.9 ng/mL,contact lab for alternative methods to obtain a definitive level. If separate quantitation of 25-hydroxy vitamin D3 and 25-hydroxy vitamin D2 is needed, please contact lab for alternative methods. Specimen Blood Performing Organization Address City/State/Zipcode Phone Number [facility] DEPARTMENT OF PATHOLOGY AND [address] [place] [address] [phone] [address] Sedimentation rate (09/09/2019 8:46 PM SWEATBAND CUTTING MACHINE OPERATOR) Pathologist Sig nature Sedimentation rate 34 (H) 0 - 10 mm/hr [facility] Specimen Blood Performing Organization Address City/State/Zipcode Phone Number [facility] DEPARTMENT OF PATHOLOGY AND [address] [place] [address] [phone] [place] [address] Rheumatoid factor (09/09/2019 8:46 PM SWEATBAND CUTTING MACHINE OPERATOR) Pathologist [facility] Rheumatoid factor <10 0 - 13 IU/mL [facility] Specimen Plasma specimen Performing Organization Address [facility] Phone Number [facility] DEPARTMENT OF PATHOLOGY AND [address] [place] [address] [place] [phone] C-reactive protein (09/09/2019 8:46 PM SWEATBAND CUTTING MACHINE OPERATOR) Pathologist [facility] CRP 1.29 (H) 0.00 - 0.50 mg/dL [facility] Specimen Plasma specimen Performing Organization Address [facility] Phone Number [facility] DEPARTMENT OF PATHOLOGY AND [address] [place] [phone] DORINA (09/09/2019 8:46 PM SWEATBAND CUTTING MACHINE OPERATOR) DORINA screen Negative Negative [facility] Comment: HOSPITAL Test performed using [employer] DAPI DORINA kit (Indirect Immunofluorescence Assay) for Anti-Nuclear Antibody on [employer] 160 Analyzer. Specimen Blood Performing Organization Address [facility] Phone Number [facility] DEPARTMENT OF PATHOLOGY AND [address] [place] [address] T3 (09/09/2019 8:46 PM SWEATBAND CUTTING MACHINE OPERATOR) Pathologist [facility] T3 69 (L) 80 - 200 ng/dL [facility] Specimen Plasma specimen Performing Organization Address [facility] Phone Number [facility] DEPARTMENT OF PATHOLOGY AND [address] [place] [address] [place] [phone] Thyroid stimulating hormone (09/09/2019 8:46 PM SWEATBAND CUTTING MACHINE OPERATOR)Only the most recent of2 resultswithin the time period is included. Pathologist [facility] TSH 4.95 (H) 0.27 - 4.20 uIU/mL [facility] Specimen Plasma specimen Performing Organization Address [facility] Phone Number [facility] DEPARTMENT OF PATHOLOGY AND [address] [place] [address] [place] [address] [place] [address] T4, free (09/09/2019 8:46 PM SWEATBAND CUTTING MACHINE OPERATOR) Pathologist Sig nature T4, free 1.0 0.9 - 1.7 ng/dL [facility] L Specimen Plasma specimen Performing Organization Address City/[facility] Phone Number [facility] DEPARTMENT OF PATHOLOGY AND [address] [place] [address] [place] [phone] Folate level (09/09/2019 8:46 PM SWEATBAND CUTTING MACHINE OPERATOR) Pathologist Sig nature Folate 13.9 4.8 - 24.2 ng/mL [facility] AL Specimen Serum Performing Organization Address [facility] Centerb[facility] Phone Number [facility] DEPARTMENT OF PATHOLOGY AND [address] [place] [phone] Vitamin B12 level (09/09/2019 8:46 PM SWEATBAND CUTTING MACHINE OPERATOR)Only the most recent of2 results within the time period is included. Vitamin B12 1,226 (H) 560 - 790 [facility] Comment: pg/mL HOSPITAL Significant overlap exists between normal and deficien cy states. However, most patients with deficiencies will have Ser um B12 <200 pg/mL. Specimen Serum Performing Organization Address [facility] Centerb[facility] Phone Number [facility] DEPARTMENT OF PATHOLOGY AND [address] [place] [address] Cortisol level, random (09/09/2019 8:46 PM SWEATBAND CUTTING MACHINE OPERATOR) Cortisol, random 9 ug/dL [facility] Comment: HOSPITAL Reference Ranges are not established for non-timed Cor tisol levels. Reference Range for Timed Cortisol: 6 - 10 AM 6 - 18 ug/d l 4 - 8 PM 3 - 11 ug/ dl Specimen Plasma specimen Performing Organization Address City/[facility]/Zipcode Phone Number [facility] DEPARTMENT OF PATHOLOGY AND [address] [place] [address] [place] [phone] Head Wo Contrast (09/09/2019 6:17 PM SWEATBAND CUTTING MACHINE OPERATOR)Only the most recent of2 results within the time period is included. Specimen Narrative Performed At EXAM: CT HEAD WO CONTRAST [facility] CLINICAL HISTORY: confusion tremors TECHNIQUE: Noncontrast enhanced images of the brain we re obtained from the skull base to the vertex. Both soft tissue and bon e reconstruction algorithms were performed. CT scans are performed using radiation dose reduction techniques (iterative reconstruction and/or automated exposure co ntrol). Technical factors are evaluated and adjusted to ensure appropria te moderation of exposure. Automated dose records management specialist nology is applied to adjust radiation exposure while achievi ng a diagnostic quality image. COMPARISON: MRI brain, 08/23/2019; CT br ain, 08/23/2019. FINDINGS: The shrestha-white matter differentiation is preserved and without evidence of acute territorial infarction. Sulci and ventricles are prominent from age-related pa renchymal volume loss. In addition, there is scattered subcortical and deep white matter hypoattenuation, likely reflective of chronic small ve ssel ischemic changes. There is no evidence for acute intracranial hemorrhage , mass, mass effect, hydrocephalus, or extra-axial fl uid collection. Bilateral orbital lens replacements are noted. Paran randi sinuses are clear. Mastoid air cells are normally pneumatized. Vascular calcifications are noted, most prominent within the bi lateral cavernous ICAs. Osseous structures are intact. IMPRESSION: Mild to moderate involutional changes as detailed with no CT evidence for acute intracranial abnormality. [id number] Procedure Note Interface, Radiology Results Incoming - 09/09/2019 6:24 PM SWEATBAND CUTTING MACHINE OPERATOR EXAM: CT HEAD WO CONTRAST CLINICAL HISTORY: confusion tremors TECHNIQUE: Noncontrast enhanced images o f the brain were obtained from the skull base to the vertex. Both soft tissue and bone reconstruction algorithms were performed. CT scans are performed using radiation d ose reduction techniques (iterative reconstruction and/or automated exposure control). Technical factors are evaluated and adjusted to ensure appropriate moderation of exposure. Automated dose records management specialist nology is applied to adjust radiation exposure while achieving a diagnostic quality image. COMPARISON: MRI brain, 08/23/2019; CT bra in, 08/23/2019. FINDINGS: The shrestha-white matter differentiation is preserved and without evidence of acute territorial infarction. Sulci and ventricles are prominent from age-related parenchymal volume loss. In addition, there is scattered subcortical and deep white matter hypoattenuation, likely reflective of chronic small vessel ischemic changes. There is no evidence for acute intracran ial hemorrhage, mass, mass effect, hydrocephalus, or extra-axial fluid collection. Bilateral orbital lens replacements are noted. Paranasal sinuses are clear. Mastoid air cells are normally pneumatized. Vascular calcifications are noted, most prominent within the bilateral cavernous ICAs. Osseous structures are intact. IMPRESSION: Mild to moderate involutional changes as detailed with no CT evidence for acute intracranial abnormality. [facility]-[id number] Performing Organization Address City/State/[facility] Center[facility] Phone Number [facility] [address] [place] [address] XR Chest 1 Vw Portable (09/09/2019 2:14 PM SWEATBAND CUTTING MACHINE OPERATOR)Only the most recent of3 results within the time period is included. Specimen Narrative Performed At EXAMINATION: [facility]ST [facility] COMPARISON: Chest x-ray 08/27/2019. IMPRESSION: Lines and tubes: None. Heart and mediastinum: Interval worsening of pulmonary vascular congestion, interstitial and alveolar opacities relate d to pulmonary edema, and bilateral small pleural effusions with asso ciated presumed compressive bibasilar atelectasis. Lungs: Stable appearance of the cardiomediastinal silh ouette, which is enlarged. Bones: Several old healed left-sided rib fractures [facility]-[id number] Dictated and approved by radiology resid ent/fellow: Giorgio Taylor M.D. I, Joshua Soto MD, personally reviewed the images and resident's/fellow's findings and agree with the final report. Procedure Note Interface, Radiology Results Incoming - 09/09/2019 4:20 PM SWEATBAND CUTTING MACHINE OPERATOR EXAMINATION: XR CHEST 1 VW PORTABLE CLINICAL HISTORY: cough COMPARISON: Chest x-ray 08/27/2019. IMPRESSION: Lines and tubes: None. Heart and mediastinum: Interval worsenin g of pulmonary vascular congestion, interstitial and alveolar opacities related to pulmonary edema, and bilateral small pleural effusions with associated presumed compressive bibasilar atelectasis. Lungs: Stable appearance of the cardiome diastinal silhouette, which is enlarged. Bones: Several old healed left-sided rib fractures [facility]-[id number] Dictated and approved by radiology resid ent/fellow: Giorgio Taylor M.D. I, Joshua Soto MD, personally reviewed t he images and resident's/fellow's findings and agree with the final report. Performing Organization Address City/State/[facility] Centerbcode Phone Number [facility] [address] [place] [address] Partial thromboplastin time, activated (09/09/2019 2:14 PM SWEATBAND CUTTING MACHINE OPERATOR)Only the most recent of3 resultswithin the time period is included. Pathologist [facility] PTT 53.9 (H) 23.0 - 36.0 [facility] Comment: [facility] PTT therapeutic range for unfractionated heparin is 61.0-112.0 seconds which corresponds to Anti-Xa 0.3-0.7 U/ml. Specimen Blood Performing Organization Address City/[facility]/Zipcode Phone Number [facility] DEPARTMENT OF PATHOLOGY AND [address] [place] [address] [phone] [address] Prothrombin time with INR (09/09/2019 2:14 PM SWEATBAND CUTTING MACHINE OPERATOR)Only the most recent of9 resultswithin the time period is included. Pathologist [facility] Prothrombin time 32.6 (H) 11.5 - 14.5 [facility] INR 3.1 [place] Comment: SIKHISM [facility] International Normalized Ratio (INR) is a therapeu [facility] monitoring tool for patients who are stable on oral anticoagulant therapy. An INR of 2.0-3.0 is suggested for deep vein thrombosis/pulmonary embolism. Specimen Blood Performing Organization Address [facility]/Zipcode Phone Number [facility] DEPARTMENT OF PATHOLOGY AND [address] [place] [address] [phone] [address] CBC with platelet and differential (09/09/2019 2:14 PM SWEATBAND CUTTING MACHINE OPERATOR)Only the most recent of6 resultswithin the time period is included. Pathologist [facility] WBC 5.85 4.50 - 11.00 [facility] k/[facility] RBC 3.04 (L) 4.40 - 6.00 [facility] m/[facility] HGB 9.3 (L) 14.0 - 18.0 [facility] g/dL [facility] HCT 32.2 (L) 41.0 - 51.0 % [facility] MCV 105.9 (H) 82.0 - 100.0 [facility] MCH 30.6 27.0 - 34.0 pg [facility] MCHC 28.9 (L) 31.0 - 37.0 [facility] g/dL HOSPITAL RDW - SD 57.0 (H) 37.0 - 55.0 fL [facility] MPV 9.8 8.8 - 13.2 fL [facility] Platelet count 172 150 - 400 k/uL [facility] Nucleated RBC 0.00 /100 WBC [facility] Neutrophils 75.1 (H) 39.0 - 69.0 % [facility] Lymphocytes 12.3 (L) 25.0 - 45.0 % [facility] Monocytes 7.7 0.0 - 10.0 % [facility] Eosinophils 3.9 0.0 - 5.0 % [facility] Basophils 0.5 0.0 - 1.0 % [facility] Immature granulocytes 0.5Comment: 0.0 - 1.0 % [facility] "Immature [facility] granulocytes" (promyelocytes , myelocytes, metamyelocytes ) Specimen Blood Performing Organization Address City/[facility] Centerbcoil Phone Number [facility] DEPARTMENT OF PATHOLOGY AND [address] [place], [place] [phone] B natriuretic peptide (09/09/2019 2:14 PM SWEATBAND CUTTING MACHINE OPERATOR)Only the most recent of2 results within the time period is included. Pathologist Sig [facility] BNP 288 (H) 0 - 100 pg/mL [facility] Specimen Blood Performing Organization Address City/[facility] Centerb[facility]il Phone Number [facility] DEPARTMENT OF PATHOLOGY AND [address] [place] [phone] Magnesium level (09/09/2019 2:14 PM SWEATBAND CUTTING MACHINE OPERATOR) Pathologist Sig nature Magnesium 2.2 1.6 - 2.4 mg/dL [facility] L Specimen Plasma specimen Performing Organization Address City/[facility] Phone Number [facility] DEPARTMENT OF PATHOLOGY AND [address] [place] [address] Comprehensive metabolic panel (09/09/2019 2:14 PM SWEATBAND CUTTING MACHINE OPERATOR)Only the most recent of4 resultswithin the time period is included. Sodium 142 135 - 148 [facility] mEq/L [facility] Potassium 4.6 3.5 - 5.0 [facility] mEq/L [facility] Chloride 102 98 - 112 mEq/L [facility] CO2 31 24 - 31 mEq/L [facility] Anion gap 9@ANIO 7 - 15 mEq/L [facility] BUN 36 (H) 8 - 23 mg/dL [facility] Creatinine 6.34 (H) 0.70 - 1.20 [facility] mg/dL [facility] Glucose 92 65 - 99 mg/dL [facility] Calcium 9.3 8.8 - 10.2 [facility] mg/dL [facility] Protein 7.0 6.3 - 8.3 g/dL [facility] Comment: HOSPITAL Rhnnpme4951.6-7.0 g/dL 1 euhr2606.4-7.6 g/dL 7 months-8hpvy672.1-7.3 g/dL 1-2 dcknu784.6-7.5 g/dL >3 .0-8.0 g/dL 18-8541609.3-8.3 g/dL Albumin 3.1 (L) 3.5 - 5.0 g/dL [facility] A/G ratio 0.8 0.7 - 3.8 [facility] Alkaline phosphatase 89 40 - 129 U/L [facility] AST 16 10 - 50 U/L [facility] ALT <5 (A) 5 - 50 U/L [facility] Total bilirubin 0.3 0.0 - 1.2 [facility] mg/dL [facility] Specimen Plasma specimen Performing Organization Address City/State/Zipcode Phone Number [facility] DEPARTMENT OF PATHOLOGY AND [address] [place] [phone] GENOMIC MEDICINE [address] [address] ECG 12 lead (09/09/2019 2:06 PM SWEATBAND CUTTING MACHINE OPERATOR)Only the most recent of3 resultswithin the time period is included. Pathologist Sig nature Ventricular rate 55 [facility] Atrial rate 55 [facility] RI interval 270 [facility] QRSD interval 178 [facility] QT interval 512 [facility] QTC interval 489 [facility] P axis 1 48 [facility] QRS axis 1 -47 [facility] T wave axis 13 [facility] EKG impression Sinus bradycardia with 1st d egree AV block-Right bundle branch block-Left anterior fascicular block-^^^ Bifascicular block ^^^-Minimal voltage criteria for LVH, may be normal variant-Abnormal ECG-In automated comparison with ECG of 23-AUG-2019 [facility] MUSE 21:31,-Criteria for Septal i nfarct are no longer present-T wave inversion more evident in Anterior leads- Specimen Narrative Performed At This result has an attachment that is no t available. Performing Organization Address City/State/Zipcode Phone Number [facility] MUSE [address] [place] [address] CRITICAL CARE (09/09/2019 1:33 PM SWEATBAND CUTTING MACHINE OPERATOR) Narrative Performed At Haroon Harris MD 09/14/2019 1:38 PM Critical Care Performed by: Haroon Harris MD Authorized by: Haroon Harris MD Critical care provider statement: Critical care time (minutes): 40 Critical care time was exclusive of: Separately b illable procedures and treating other patients and teaching caridad e Critical care was necessary to treat or prevent imminent or life-threatening deterioration of the fo llowing conditions: Metabolic crisis and [employer] failure or compromise Critical care was time spent personal ly by me on the following activities: Development of treatment p john with patient or surrogate, discussions with consultants, discussion s with primary provider, examination of patient, interpretation o f cardiac output measurements, obtaining history from patient or surrog ate, ordering and performing treatments and interventions, ordering and review of l aboratory studies, ordering and review of radiographic studies, pulse oxi metry, re-evaluation of patient's condition and review of old charts Yang 'yes' if you are taking over critical care for this patient from another provider.: no Comments: Pt p/w fluctuating AMS, weakness, vi sual distrubtances- pt found to have BP > 200 systolic requriing IV hydralazine for ac robert BP management, renal consulted, neurologic evaluation initaited, r/o infectoius causes of posssible delerium, admitted for further management Anti Xa, unfractionated (09/01/2019 4:01 AM SWEATBAND CUTTING MACHINE OPERATOR)Only the most recent of19 resultswithin the time period is included. Pathologist [facility] Anti Xa, 0.28Comment: U/mL [place] unfractionated Therapeutic Range: SIKHISM SUGAR 0.30 - 0.70 U/mL [facility] Specimen Blood Performing Organization Address City/[facility]/Zipcode Phone Number [facility] DEPARTMENT OF PATHOLOGY [id number] [place] [address] X [phone] AND [facility] [id number] [place] [address] X [phone] [facility] Total iron binding capacity (08/27/2019 11:00 AM SWEATBAND CUTTING MACHINE OPERATOR) Pathologist Sig nature Iron level 42 (L) 59 - 158 ug/dL [facility] Iron binding capacity 156 (L) 260 - 460 ug/dL [facility] % Saturation 26.9 20.0 - 40.0 % [facility] Specimen Plasma specimen Performing Organization Address City/[facility] Phone Number [facility] DEPARTMENT OF PATHOLOGY [id number] [place] [address] X [phone] AND [facility] [address] [place] [address] X [phone] [facility] Ferritin level (08/27/2019 11:00 AM SWEATBAND CUTTING MACHINE OPERATOR) Pathologist Sig [facility] Ferritin level 835 (H) 30 - 400 ng/mL [facility] Specimen Plasma specimen Performing Organization Address City/[facility] Phone Number [facility] DEPARTMENT OF PATHOLOGY AND [address] [place], [place] [address] [facility] [address] [place] [address] CBC hemogram (08/27/2019 4:00 AM SWEATBAND CUTTING MACHINE OPERATOR)Only the most recent of2 resultswithin the time period is included. Pathologist Sig nature WBC 7.6 4.5 - 11.0 k/uL [facility] RBC 2.70 (L) 4.40 - 6.00 m/uL [facility] HGB 8.1 (L) 14.0 - 18.0 g/dL [facility] HCT 28.0 (L) 41.0 - 51.0 % [facility] MCV 103.7 (H) 82.0 - 100.0 fL [facility] MCH 30.0 27.0 - 34.0 pg [facility] MCHC 28.9 (L) 31.0 - 37.0 g/dL [facility] RDW - SD 58.8 (H) 37.0 - 55.0 fL [facility] MPV 10.3 6.9 - 11.0 fL [facility] Platelet count 134 (L) 150 - 400 K/uL [facility] Nucleated RBC 0.00 /100 WBC [facility] Specimen Blood Performing Organization Address City/[facility] Phone Number [facility] DEPARTMENT OF PATHOLOGY [address] [place] [address] [address] [place] [address] HOSPITAL [place] < 1 Hour (08/26/2019 7:17 PM SWEATBAND CUTTING MACHINE OPERATOR) Specimen Narrative Performed At EXAMINATION: OR FL < 1 HOUR [facility] CLINICAL HISTORY: Intraoperative fluoros copy IMPRESSION: Fluoroscopy was provided. No radiologist present. Pl ease see procedure report for discussion of procedure, find ings and fluoroscopic time. [id number] Procedure Note Hm Interface, Radiology Results Incoming - 08/26/2019 7:43 PM SWEATBAND CUTTING MACHINE OPERATOR EXAMINATION: OR FL < 1 HOUR CLINICAL HISTORY: Intraoperative fluoros copy IMPRESSION: Fluoroscopy was provided. No radiologist present. Please see procedure report for discussion of procedure, findings and fluoroscopic time. [id number] Performing Organization Address [facility] Phone Number [facility] [address] [place] [address] Type and screen (08/26/2019 4:15 AM SWEATBAND CUTTING MACHINE OPERATOR) Pathologist Sig nature ABO grouping A [facility] Rh type POS [facility] Antibody screen (gel) NEG [facility] Specimen Blood Performing Organization Address City/[facility]/Zipcode Phone Number [facility] DEPARTMENT OF PATHOLOGY [address] [place] [address] Copper level, serum (08/25/2019 11:30 AM SWEATBAND CUTTING MACHINE OPERATOR)Only the most recent of2 results within the time period is included. Copper 99.4 70.0 - 140.0 [facility] Comment: ug/dL INTERPRETIVE INFORMATION: Copper, Serum or Plasma Elevated results may be due to skin or collection-rela kael contamination, including the use of a noncertified met al-free collection/transport tube. If contamination concerns e xist due to elevated levels of serum/plasma copper, confirmation w ith a second specimen collected in a certified metal-free tube is r ecommended. Serum copper may be elevated with infection, inflammat ion, stress, and copper supplementation. In females, elevated coppe r may also be caused by oral contraceptives and (concen trations may be elevated up to 3 times normal during the third trim marcie). Test developed and characteristics determined by [facility]. See Compliance Statement B: [email or web address] Performed by [facility], [address] [place] [id number] [email or web address], Derik Goncalves MD, Lab. Director Specimen Blood Performing Organization Address City/State/Zipcode Phone Number [facility] [address] [place] [address] [facility] [address] [place] [phone] Hepatitis B surface Ab, quantitative (08/25/2019 8:00 AM SWEATBAND CUTTING MACHINE OPERATOR) [facility] Signature Hepatitis B surface 143.36 IU/L [facility] Comment: The anti-HBs is greater than or equal to 10 IU/L. This patient has either had an antibody response to HBV vaccination, re ceived a transfusion, or has recovered from HBV infection. This patient should be considered immune to hepatitis B. An anti-HBs result greater than or equal to 10 IU/L im plies immunity. For post-vaccination antibody testing guidel judi for the general public refer to MMWR August 10, 2005/Vol. 54 (No. 16);-, and for healthcare workers refer to MMWR Jul/Vol. 62(No. 10);1-19. Reference Interval: anti-HBs 9.99 IU/L or less ....... Negative 10.00 IU/L or greater .... Positive Results greater than 1,000.00 IU/L are reported as gre ater than 1,000.00 IU/L. This assay should not be used for blood donor screenin g, associated re-entry protocols, or for screening Human Cell, Tissues and Cellular and Tissue-Based Products (HCT/P) . Performed by [facility], [address] [place] [phone] [email or web address], Derik Goncalves MD, Lab. Director Specimen Serum Performing Organization Address City/[facility]/Zipcode Phone Number [facility] [address] [place] [address] [facility] [address] [place] [address] Hepatitis B surface antibody (08/25/2019 8:00 AM SWEATBAND CUTTING MACHINE OPERATOR) Pathologist Sig nature Hepatitis B surface Reactive (A) Non-reactive [facility] Specimen Blood Performing Organization Address City/State/Zipcode Phone Number [facility] DEPARTMENT OF PATHOLOGY AND [address] [place], [place] [address] [facility] [address] [place] [address] Hepatitis B surface antigen (08/25/2019 8:00 AM SWEATBAND CUTTING MACHINE OPERATOR) Pathologist Sig nature Hepatitis B surface Non-reactive Non-reactive [facility] Specimen Performing Organization Address [facility] Centerb[facility] Phone Number [facility] DEPARTMENT OF PATHOLOGY [address] [place] [address], X [address] AND [facility] [address] [place] [address] X [phone] HOSPITAL [facility] Hemodialysis Access (08/24/2019 4:59 PM SWEATBAND CUTTING MACHINE OPERATOR) Specimen Narrative Performed At EXAMINATION: [facility] HEMODIALYSIS ACCESS [facility] CLINICAL HISTORY: Poor clearance throu gh AV fistula COMPARISON: None. IMPRESSION: 1.Shrestha scale and color Doppler images of a left upper extremity radial artery to cephalic vein fistula were obt ained. 2.The radial artery proximal and distal to the venous anastomosis of the arteriovenous fistula is patent with nor mal flow velocities. 3.The venous outflow of the fistula provided by the ce phalic vein is patent. 4.Elevated flow velocities are noted at the anastomosi s of the arteriovenous fistula measuring up to 233 cm/s. These flow velocities abruptly decreases within the venous outflow ranging f rom 60.6 cm/s to 24.3 cm/s. These findings suggest possib le stenosis at the arteriovenous anastomosi s. 5.No focal fluid collections are seen within the super ficial soft tissues. [id number] Procedure Note Hm Interface, Radiology Results Incoming - 08/24/2019 5:33 PM SWEATBAND CUTTING MACHINE OPERATOR EXAMINATION: [facility] HEMODIALYSIS ACCESS CLINICAL HISTORY: Poor clearance throug h AV fistula COMPARISON: None. IMPRESSION: 1.Shrestha scale and color Doppler images of a left upper extremity radial artery to cephalic vein fistula were obtained. 2.The radial artery proximal and distal to the venous anastomosis of the arteriovenous fistula is patent with normal flow velocities. 3.The venous outflow of the fistula prov ided by the cephalic vein is patent. 4.Elevated flow velocities are noted at the anastomosis of the arteriovenous fistula measuring up to 233 cm/s. These flow velocities abruptly decreases within the venous outflow ranging from 60.6 cm/s to 24.3 cm/s. These findings suggest possible stenosis at the arteriovenous anastomosi s. 5.No focal fluid collections are seen wi thin the superficial soft tissues. [facility]-[id number] Performing Organization Address City/State/Zipcode Phone Number JODIE [address] [place] [address] Hemoglobin A1c (08/24/2019 3:55 AM SWEATBAND CUTTING MACHINE OPERATOR) Hemoglobin A1C 4.6 4.0 - 5.6 % [facility] Comment: [place] HbA1c cutoffs for diagnosing diabetes: HO SPITAL 4.0% - 5.6% = normal 5.7% - 6.4% = increased risk for diabetes (prediabetes )9 >=6.5% = diabetes9 Goals for glycemic control (ADA 2016) < 7.0% Target for non adults with diabetes. More or less stringent targets may be appropriate for individual patients. <7.5% Target for Children and adolescents with type 1 diabetes. Specimen Blood Performing Organization Address City/[facility]/Zipcode Phone Number [facility] DEPARTMENT OF PATHOLOGY [address] [facility], [place] X [address] AND [facility]IC[facility] [address] [facility], X [address] HOSPITAL Lipid panel (08/24/2019 3:55 AM SWEATBAND CUTTING MACHINE OPERATOR) Cholesterol 107 0 - 199 [place] mg/dL [facility] Triglycerides 74 0 - 149 [place] mg/dL [facility] HDL cholesterol 39 (L) 40 - 99,999 [place] mg/dL [facility] LDL cholesterol 55 0 - 99 mg/dL [facility] Lipid panel See below [place] interpretation Comment: [facility] Total Cholesterol (mg/dL) [facility] <200 Desirable 200-239 Borderline-high >=240 High Triglycerides (mg/dL) <150 Normal 150-199 Borderline-high 200-499 High >=500 Very high HDL Cholesterol (mg/dL) <40 Low (male) <50 Low (female) LDL Cholesterol (mg/dL) <100 Optimal 100-129 Near or above optimal 130-159 Borderline-high 160-189 High >=190 Very high Risk Catergories that modify LDL goals. Risk Catergories LDL goal (mg/d L) CHD and CHD risk equivalent <100 (10-year risk >20%) Multiple (2+) risk factors <130 (10-year risk =<20%) 0-1 risk factors <160 (<10-year risk) Defining levels of lipids in metabolic syndrome Triglycerides >=150 mg/dL HDL Cholesterol Men <40 mg /dL Women <50 mg/ dL Non-HDL cholesterol is a second target for therapy in persons with high triglycerides (>=200 mg/dL) Specimen Plasma specimen Performing Organization Address City/State/Zipcode Phone Number [facility] DEPARTMENT OF PATHOLOGY [address] [facility], X [address] AND [facility] [address] [facility], X [address] [facility] Echocardiogram complete w contrast and 3D if needed (08/24/2019 2:35 AM SWEATBAND CUTTING MACHINE OPERATOR) Pathologist Sig nature Ao Root Diameter 3.98 cm [facility] AoV Area, Vmax 3.34 cm2 [facility] AoV Area, VTI 3.36 cm2 [facility] AoV Mean PG 13.27 mmHg [facility] AoV Peak PG 21.02 mmHg [facility] AoV Vmax 2.29 m/s [facility] AoV VTI 0.49 m [facility] IVS,d 1.24 cm [facility] IVS/LVPW,2D 0.84 [facility] Left Atrium Dimension Anterior 4.73 cm [facility] LA Area d A4C 40.87 cm2 [facility] LV,d 5.59 cm [facility] LV EF,2D 65.59 % [facility] LV,s 3.92 cm [facility] LVOT area 5.81 cm2 [facility] LVOT Diam,S 2.72 cm [facility] LVOT Vmax 1.35 m/s [facility] LVOT VTI 0.29 m [facility] LVPWD,d 1.47 cm [facility] PV Pk Grad 6.81 mmHg [facility] PV VMAX 1.30 m/s [facility] MV E A ratio 0.72 [facility] E wave decelartion time 381.26 msec [facility] MV Peak A Jace 1.47 m/s [facility] MV valve area p 1/2 method 1.99 cm2 [facility] MV Peak E Jace 1.05 m/s [facility] MV stenosis pressure 1/2 time 110.56 ms [facility] AV LVOT peak gradient 7.33 mmHg [facility] Ao Root Diameter 3.98 cm [facility] MV mean gradient 3.70 mmHg [facility] LV SYS VOL 66.70 ml [facility] LV ALBERTO VOL 153.26 ml [facility] LV SV Teich 2D 86.55 ml [facility] LV Vol s Teich PSAX 66.70 ml [facility] MR peak grad 9.61 mmHg [facility] MV Vmax 1.52 m [facility] MV VTI Tips 0.33 m [facility] AoV Vmn 1.70 [facility] LV FS Teich 2D 29.93 [facility] MV AE ratio 1.40 [facility] LV FS Cube 2D 29.93 [facility] LVOT Vmn 0.97 [facility] Aov area Vmn 3.24 cm2 [facility] LA Vol d MOD A4C 167.48 ml [facility] LVOT mean grad 4.20 mmHg [facility] MAX Pred HR 137.42 [facility] 85 of MPHR 116.81 [facility] Calc MPHR 137.42 bpm [facility] LV SV Cube 2D 114.79 ml [facility] LV vol d cube 2D 175.01 ml [facility] LV vol s cube 2D 60.22 ml [facility] MV Decel slope 2.76 m/s2 [facility] Pred Exer Dur R1 5.24 [facility] Pred METS R1 5.61 [facility] Velocity Ratio (V1/V2) 0.59 m/s [facility] EF 56.48 % [facility] E/A ratio 0.71 [facility] Specimen Narrative Performed At This result has an attachment that is no t available. Normal left ventricular size and function with an EF~ 55% to 60%. [facility] Normal right ventricular size and function. Mild aortic stenosis with mild aortic regurgitation. The mitral valve is thickened with mild regurgitation. Structurally normal tricuspid valve and pulmonic valve . Left atria enlargement. Normal pericardium with no effusion. Grade 1 diastolic dysfunction. Performing Organization Address City/State/Zipcode Phone Number [facility] [address] [place] [address], Troponin (08/24/2019 12:27 AM SWEATBAND CUTTING MACHINE OPERATOR)Only the most recent of3 resultswithin the time period is included. Pathologist [facility] Troponin 0.060 (H) 0.000 - 0.040 [facility] Comment: ng/mL [facility] In patients suspected of having a myocardial infarctio n, along with all other appropriate clinical measures and actions includ ing ECG and other diagnostics as appropriate, measure Ultra TnI at 0 hrs and at 3 hrs. Myocardial infarction VERY LIKELY The 0 hr TnI level is > 0.10 ng/mL Myocardial infarction LIKELY The 0 hr TnI level is > 0.04 ng/mL and 3 hr level is i ncreased or decreased by at least 0.020 ng/mL Myocardial infarction VERY UNLIKELY Both the 0 hr and 3 hr TnI levels <= 0.04 ng/mL(within normal limits) OR 0 hr is > 0.04 ng/mL and 3 hr is increased OR decreased by less than 0.020 ng/mL Specimen Plasma specimen Performing Organization Address City/[facility]/Zipcode Phone Number [facility] DEPARTMENT OF PATHOLOGY [address] [facility] [place] [address] AND [facility]IC MEDICINE [facility] [address] [facility] X [address] [facility] Arterial blood gas (08/23/2019 11:10 PM SWEATBAND CUTTING MACHINE OPERATOR) Pathologist Sig nature pH, arterial 7.35 7.35 - 7.45 [facility] pCO2, arterial 55 (H) 35 - 45 mmHg [facility] pO2, arterial 214 (H) 80 - 90 mmHg [facility] Bicarbonate, 29.5 (H) 21.0 - 28.0 [facility] arterial mmol/L [facility] Base excess, 4 (H) -2 - 2 mEq/L [facility] O2 saturation, 99 95 - 100 % [facility] Specimen Blood Performing Organization Address City/[facility]/Zipcode Phone Number [facility] DEPARTMENT OF PATHOLOGY [address] [facility] X [address] AND [facility] [address] [facility] X [address] [facility] Respiratory pathogen panel (08/23/2019 9:10 PM SWEATBAND CUTTING MACHINE OPERATOR) Pathologist [facility] Respiratory Negative for all pathogens tested: [facility] pathogen panel Negative for Adenovirus SIKHISM Negative for Coronavirus HKU1 [facility] Negative for Coronavirus NL63 Negative for Coronavirus 229E Negative for Coronavirus OC43 Negative for Human Metapneumovirus Negative for Rhinovirus/Enterovirus Negative for Influenza A Negative for Influenza A/H1 Negative for Influenza A/H3 Negative for Influenza A/H1-2009 Negative for Influenza B Negative for Parainfluenza Virus 1 Negative for Parainfluenza Virus 2 Negative for Parainfluenza Virus 3 Negative for Parainfluenza Virus 4 Negative for Respiratory Syncytial Virus Negative for Bordetella pertussis Negative for Chlamydophila pneumoniae Negative for Mycoplasma pneumoniae This real-time PCR assay detects the presence of nucle ic acids (RNA or DNA) for the respiratory pathogens liste d. A result of "Not-detected" does not exclude the possib ility of the presence of one or more pathogens at concentrat ions less than the detectable limits of the assay. Comment: Specimen Information Specimen Source: Nares Specimen Site: Not specified Specimen Nares - Not specified Performing Organization Address City/State/Zipcode Phone Number [facility] DEPARTMENT OF PATHOLOGY AND [address] [place], [place] [address] [address] Influenza antigen test, reflex negative to RPP (08/23/2019 9:10 PM SWEATBAND CUTTING MACHINE OPERATOR) Influenza antigen Negative for Influenza A/B antigen. [facility] Comment: [place] Specimen Information HOSPITAL Specimen Source: Nares Specimen Site: Not specified Specimen Nares - Not specified Performing Organization Address City/State/Zipcode Phone Number [facility] DEPARTMENT OF PATHOLOGY [address] [facility]. [place], [place] X [address] AND GENOMIC MEDICINE [facility] [place]HA [place] [address] [facility] [place] [address] [facility] Vitamin B1 level, whole blood (08/23/2019 5:45 PM SWEATBAND CUTTING MACHINE OPERATOR) Vitamin B1 141 70 - 180 [facility] Comment: nmol/L INTERPRETIVE INFORMATION: Vitamin B1, Whole Blood This assay measures the concentration of thiamine diph osphate (TDP), the primary active form of vitamin B1. Approxim ately 90 percent of vitamin B1 present in whole blood is TDP. T hiamine and thiamine monophosphate, which comprise the remaining 1 0 percent, are not measured. Test developed and characteristics determined by [facility]. See Compliance Statement B: [email or web address] CS Performed by [facility], [address] [place] [id number] [email or web address], Derik Goncalves MD, Lab. Director Specimen Plasma specimen Performing Organization Address City/[facility]/Zipcode Phone Number [facility] [address] [place] [address] [facility] [address] [place] [address] ECG ED Preliminary Interpretation - Not an Order (08/23/2019 11:15 AM SWEATBAND CUTTING MACHINE OPERATOR) Narrative Performed At Lilliana Tomlinson MD 08/27/2019 2:32 AM ECG ED Preliminary Interpretation - Not an Order Performed by: Lilliana Tomlinson MD Authorized by: Lilliana Tomlinson MD ECG reviewed by ED Physician in the abse nce of a day haul or farm charter bus driver: yes Interpretation: Interpretation: non-specific Rate: ECG rate: 61 ECG rate assessment: normal Rhythm: Rhythm: sinus rhythm Ectopy: Ectopy: none QRS: QRS axis: Normal QRS intervals: Wide Conduction: Conduction: abnormal 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 ST segments: ST segments: Non-specific T waves: T waves: non-specific Other findings: Other findings: LVH after 04/12/2019 Insurance Payer Benefit Plan / Subscriber ID Effective Dates Phone Addre ss Type Group MEDICARE MEDICARE PART A AND xxxxxxxxxxx 2002-Navjot [facility] [place] Medicare B t AETNA [facility] x[facility]x 2000-Navjot shane Advance Directives For more information, please contact: [phone] Type Date Recorded 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
--- OUTSIDE RECORDS SUMMARY | 2020-04-12 11:07 | XMS REPORT | Clinical Summary ---
:1935 Author Organization [facility] Address [address] [place] [address] Care Team Providers Name Role Phone Unavailable Primary Care Provider Unavailable Allergies Not on File Medications Not on file Active Problems Not on file Social History Tobacco Use Types Packs/Day Years Used Date Never Assessed Sex Assigned at Date Recorded Not on file Job Start Date Occupation Industry Not on file Not on file Not on file Travel History Travel Start Travel End No recent travel history available. Last Filed Vital Signs Not on file Plan of Treatment Not on file Results Not on fileafter 04/12/2019 Insurance Payer Benefit Plan / Group Subscriber ID Type Phone A ddress MEDICARE MEDICARE A B xxxxxxxxxx Medicare
--- OUTSIDE RECORDS SUMMARY | 2020-04-12 11:09 | XMS REPORT | Summary of Care ---
:1935 Author Organization [facility] Address [address] [place] [address] Care Team Providers Name Role Phone Unavailable Primary Care Provider Unavailable Encounter Details Date Type Department Care Team Description 03/11/2020 Letter (Out) [facility] Family Medicine Khanh Velazquez MD - [address] [place] [address] [place] [address] [phone] Allergies Not on Filedocumented as of this encounter (statuses as of 03/11/2020) Medications Not on filedocumented as of this encounter (statuses as of 03/11/2020) Active Problems Not on filedocumented as of this encounter (statuses as of 03/11/2020) Social History Tobacco Use Types Packs/Day Years Used Date Never Assessed Sex Assigned at Date Recorded Not on file Job Start Date Occupation Industry Not on file Not on file Not on file Travel History Travel Start Travel End No recent travel history available. documented as of this encounter Last Filed Vital Signs Not on filedocumented in this encounter Plan of Treatment Health Maintenance Due Date Last Done Comments DTaP,Tdap,and Td Vaccines (1 - Tdap) 01/25/1946 Depression Screening 1947 Zoster Recombinant Vaccine (SHINGRIX) (1 of 2) 1987 PNEUMOCOCCAL VACCINES 65+ (1 of 2 - PCV13) 2002 INFLUENZA VACCINE (#1) 2020 documented as of this encounter Results Not on filedocumented in this encounter Insurance Payer Benefit Plan / Subscriber ID Effective Dates Phone Addre ss Type Group MEDICARE MEDICARE PART xxxxxxxxxxx 2002-Navjot [phone] Medicare A & B t 2 [id number] [place] [id number] documented as of this encounter
--- OUTSIDE RECORDS SUMMARY | 2020-04-12 11:09 | XMS REPORT | Continuity of Care Document ---
:1935 Author Organization [facility] t Address [address] [place] [address] Care Team Providers Name Role Phone Kate MORENO Primary Care Physician Sae Jensen MD Attending Clinician Kristen MORENO, H Attending Clinician Pob[facility], Care Clinic Attending Clinician Unavailable Lab, Fam Pob I Attending Clinician Unavailable Adrián Flroes MD Attending Clinician Roque Alan MD Attending Clinician Yusra Harris MD Attending Clinician Marlene MORENO Attending Clinician Harry Oconnell MD Attending Clinician Karyn CHACON Attending Clinician Unavailable Crissy Tomlinson MD Attending Clinician Apolinar MORENO Attending Clinician Johan MORENO Attending Clinician Fang Chen MD Attending Clinician Fan Viramontes MD Attending Clinician MARLENE Admitting Clinician Unavailable APOLINAR Admitting Clinician Unavailable Payers Payer Name Policy Policy Number Effective Expiration Source Type Date Date MEDICAREMEDICARE PART xxxxxxxxxxx 2002 Thom white A AND 00:00:00 [facility]ast[facility] Bxxxxxxxxxxx2002[facility] AETNAAETNA x[facility]x 2000 [facility]ast[facility] INDEMNITYxxxxxxxxxx2000-PresentIndemni ty Problems Condition Condition Condition Status Onset Resolution Last Treating Co mments Source Name Details Category Date Date Treatment Clinician Date Tremor Tremor Disease Active [place] 1 Methodi 00:00: st 00 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-22 Meth matt encephalop encephalop 00:00: st athy athy 00 CVA 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 (cerebral 106 Meth matt vascular vascular 00:00: st accident) accident) 00 Vision Vision Disease Active [place] changes changes 105 Methodi 00:00: st 00 Right Right Disease Active 2017-08 [place] renal mass renal mass 1-13 Me thodi 00:00: st 00 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: [place] renal renal 9-06 Added Methodi disease disease 00:00: automatic st 00 ally from request for surgery [id number] Venous Venous Disease Active [place] stasis stasis 8-17 Methodi dermatitis dermatitis 00:00: st of both of both 00 lower lower extremitie extremitie s s Lymphedema Lymphedema Disease Active [place] of both of both 8-17 Methodi lower lower 00:00: st extremitie extremitie 00 s s Allergies, Adverse Reactions, Alerts Allergy Allergy Status Severity Reaction(s) Onset Inactive Treating Comm ents Source Name Type Date Date Clinician Gabapent Propensi Active Altered [place] ty to Mental 02-23 Methodi adverse Status 00:00: st reaction 00 s to drug Sevelame Propensi Active Itching [place] ty to 02-23 Methodi Carbonat adverse 00:00: st e reaction 00 s to drug Adhesive Propensi Active Rash BLISTERS [place] Tape-Ina ty to 04-29 Methodi icones adverse 00:00: st reaction 00 s to drug Codeine Propensi Active Rash Garcia ty to 04-29 Methodi adverse 00:00: st reaction 00 s to drug Morphine Propensi Active Other (See "MAKES ME [place] ty to Comments) 04-29 GOOFY - Method i adverse 00:00: NO PAIN st reaction 00 RELIEF" s to drug Family History Family Member Diagnosis Comments Start Date Stop Date Source Natural father Heart disease [place] Rastaf[place] Natural mother Cancer [facility] Natural sister Cancer [facility] Social History Social Habit Start Date Stop Date Quantity Comments Source Sex Assigned At [facility] ethodist Alcohol intake 2020-02-24 2020-02-24 [facility] non-drinker of alcohol (finding) Smoking Status Start Date Stop Date Source Never smoker [facility] t Medications Ordered Filled Start Stop Current Ordering Indication Dosage Frequency Signature Comments Components Source Medication Medication Date Date Medication? Clinician (SIG) Name Name calcium 2020-0 Yes 2001mg Q.[id number] Take 2,001 Garcia acetate - [id number] mg by Metho di (PHOSLO) 09:50: 3D mouth 3 st 667 mg 13 (three) capsule times a day before meals. antiox.mv 2020-0 Yes 1{capsu QD Take 1 Soledad ston no.10/omeg3 - le} capsule by Me laird s/lut/michel 09:50: mouth st (I-CAPS 13 daily. ORAL) cyanocobala 2020-0 Yes 2000ug QD Take 2,000 Garcia min 7-08 mcg by Methodi (VITAMIN 09:50: mouth st B-12) 1000 13 daily. MCG tablet atorvastati 2020-0 Yes 40mg QD Take 40 mg Garcia n (LIPITOR) -08 by mouth Meth matt 40 MG 09:50: nightly. st tablet 13 diclofenac 2020-0 Yes 4g Q.[id number] Apply 4 g Garcia (VOLTAREN) - [id number] topically Methodi 1 % gel 09:50: 3D 3 (three) st 13 times a day. Right shoulder and left hip (lateral) doxazosin 2020-0 Yes 2mg Q.5D Take 2 mg Soledad ston (CARDURA) 2 7-08 by mouth 2 Ok thodi MG tablet 09:50: (two) st 13 times a day. Hold SBP <100, DBP <60 or pulse <60 famotidine 2020-0 Yes 20mg QD Take 20 mg [place] (PEPCID) 20 7-08 by mouth Meth matt MG tablet 09:50: daily. st 13 ferrous 2020-0 Yes 325mg QD Take 325 [place] sulfate 325 7-08 mg by Methodi (65 FE) MG 09:50: mouth st tablet 13 daily. fluticasone 2020-0 Yes 1{spray Q.5D 1 spray by Garcia propionate 02-23 } Each Nare Meth matt (FLONASE) 09:50: route 2 st 50 13 (two) mcg/actuati times a on nasal day. Until spray 09/16/2019 @23:59 ipratropium 2020-0 Yes 3mL Q.25D Take 3 mL Garcia -albuterol -08 by Methodi (DUO-NEB) 09:50: nebulizati st 0.5-2.5 13 on 4 mg/3 mL (four) nebulizer times a day. budesonide 2020-0 Yes .5mg Q.5D Take 0.5 Soledad ston (PULMICORT) 7-08 mg by Methodi 0.5 mg/2 mL 09:50: nebulizati st nebulizer 13 on 2 (two) solution times a day. febuxostat 2020-0 Yes 80mg QD Take 80 mg [place] (ULORIC) 80 7-08 by mouth Meth matt mg tablet 09:50: daily. st 13 acetaminoph 2020-0 Yes 650mg Q6H Take 650 [place] en 7-08 mg by Methodi (TYLENOL) 09:50: mouth st 325 MG 13 every 6 tablet (six) hours as needed for mild pain, moderate pain, headaches or fever. albuterol 2020-0 Yes 2.5mg Q.5D Take 2.5 Soledad ston (ACCUNEB) 7-08 mg by Methodi 2.5 mg /3 09:50: nebulizati st mL (0.083 13 on 2 (two) %) times a nebulizer day. solution polyethylen 2020-0 Yes 17g QD Take 17 g [place] e glycol 7-08 by mouth Methodi (MIRALAX) 09:50: daily. st 17 gram 13 Hold for packet loose stools guaiFENesin 2020-0 Yes 100mg Q.25D Take 100 Garcia (ROBITUSSIN 7-08 mg by Methodi ) 100 mg/5 09:50: mouth 4 st mL syrup 13 (four) times a day as needed for cough or congestion . omeprazole 2020-0 Yes 40mg QD Take 40 mg [place] (PriLOSEC) 08 by mouth Metho di 40 MG 09:50: daily. st capsule 13 primidone 2020-0 Yes 50mg QD Take 50 mg [place] (MYSOLINE) 02-23 by mouth Metho di 50 MG 09:50: daily. st tablet 13 calcium 2020-0 2020- No 2{tbl} QD Chew 2 [place] carbonate 02-23 tablets Method i (TUMS) 200 09:50: 00:[address] mg calcium 13 :00 (500 mg) chewable tablet folic 2020-0 Yes Take by Garcia acid/vit B 02-23 mouth. Methodi complex and 09:50: st C 12 (JUSTICE-RENUKA ORAL) loratadine 2020-0 Yes 10mg QD Take 10 mg [place] (CLARITIN) 02-23 by mouth Metho di 10 mg 09:50: daily. st tablet 12 cholecalcif 2020-0 Yes Take by Soledad harmon 02-23 mouth. Methodi vitamin D3, 09:50: st (VITAMIN D3 12 ORAL) traMADoL 2020-0 2020- No acute pain 50mg Q6H Take 1 Garcia (ULTRAM) 50 02-23-18 tablet (50 M ethodi mg tablet 00:00: 23:59 mg total) st 00 :00 by mouth every 6 (six) hours as needed for moderate pain for up to 10 days .acute pain. gabapentin 2020-0 2020- No 200mg QD Take 200 [place] (NEURONTIN) 1-25 01-25 mg by Method i 100 mg 18:50: 00:[address] capsule 24 :00 daily. DULoxetine 2020-0 2020- No 20mg QD Take 20 mg Garcia (CYMBALTA) 09-09 by mouth Meth matt 20 MG 20:42: 00:[address] capsule 09 :00 benzonatate 2020-0 2020- No 200mg Q.[id number] Take 200 Garcia (TESSALON) 09-09 [id number] mg by M ethodi 100 MG 20:41: 00:[address] capsule 57 :00 (three) times a day. polyethylen 2019-0 2019- No 17g QD Take 17 g Garcia e glycol 09-02 by mouth Method i (MIRALAX) 00:00: 00:[address] 17 gram 00 :00 30 days. packet HYDROcodone 2019- 2020- No acute pain 1{tbl} Q4H Take 1 Garcia -acetaminop 09-01 tablet by Ok eitan atwood (NORCO) 19:35: 00:[address] 5-325 mg 40 :00 every 4 per tablet (four) hours as needed for moderate pain .acute pain. hydrOXYzine 2019-2019- No 25mg Q6H Take 25 mg Garcia (ATARAX) 25 09-01 by mouth Met hodi MG tablet 19:35: 00:[address] 40 :00 (six) hours as needed for itching. polyethylen 2019-0 2019- No 17g Q24H Take 17 g Garcia e glycol 09-01 by mouth Method i (MIRALAX) 19:35: 00:[address] 17 gram 40 :00 needed for packet constipati on. metoprolol 2019-0 2019- No 25mg Q.5D Take 25 mg Garcia succinate 09-01 by mouth 2 Met hodi XL 19:35: 00:00 (two) st (TOPROL-XL) 40 :00 times a 25 mg 24 hr day. tablet warfarin 2019-0 Yes 6mg QD Take 1 Garcia (COUMADIN) 09-01 tablet (6 Meth matt 6 MG tablet 00:00: mg total) s t 00 by mouth daily. acetaminoph 2019-0 2020- No 650mg Q6H Take 2 [place] en 09-01 tablets Methodi (TYLENOL) 00:00: 00:00 ([address] 325 MG 00 :00 total) by tablet mouth every 6 (six) hours as needed for mild pain for up to 30 days. dextrometho 2019-0 2020- No 5mL Q12H Take 5 mL Garcia rphan-guaif 09-01 by mouth Met hodi enesin 00:00: 23:[address] (ROBITUSSIN 00 :00 (twelve) -DM) 10-100 hours for mg/5 mL 5 days. liquid levETIRAcet 2020-0 2020- No 250mg QD Take 250 Garcia am (KEPPRA) 1-10 01-14 mg by Method i 250 MG 00:00: 00:[address] tablet 00 :00 daily. levETIRAcet 2020-0 2020- No 250mg Q.5D Take 250 Garcia am (KEPPRA) 1-07 01-14 mg by Method i 250 MG 00:00: 00:[address] tablet 00 :00 (two) times a day. triamcinolo 2020-0 2020- No Q.5D Apply [place] 08-23 topically Methodi (KENALOG) 13:34: 00:00 2 (two) st 0.1 % cream 34 :00 times a day. sodium 2019-0 2020- No 325mg Q.25D Take 325 [place] bicarbonate 08-2305 mg by Method i 325 mg 13:34: 00:[address] tablet 28 :00 (four) times a day. omeprazole 2019-0 2020- No 40mg QD Take 40 mg Jose (PriLOSEC) 08-23 by mouth Meth matt 40 MG 13:34: 00:[address] capsule 16 :00 lysine 500 2019-0 2020- No QD Take by Soledad alvarado mg tablet 08-23 mouth Methodi 13:34: 00:[address] 09 :00 folic 2020-0 2020- No QD Take by Jose acid/vit B 08-23 mouth Methodi complex and 13:34: 00:[address] C 06 :00 (JUSTICE-RENUKA ORAL) docusate 2019-0 2020- No Take by Nakita on sodium 08-23 mouth. Methodi (STOOL 13:33: 00:00 st SOFTENER 57 :00 ORAL) diphenhydra 2020-0 2020- No Take by Thom white m-PSE-aceta 08-23 mouth. Metho di minophen 13:33: 00:00 st 25-30-500 51 :00 mg tablet cholecalcif 2020-0 2020- No [id number] QD Take Soledad alvarado [place], 08-23 50,000 Methodi vitamin D3, 13:33: 00:00 Units by s t 50,000 unit 45 :00 mouth capsule daily. ferrous Take by Rasheed n sulfate 05 -05 mouth. Methodi (IRON ORAL) 13:22: 00:00 st 46 :00 levETIRAcet No 500mg QD Take 500 Garcia am (KEPPRA) 08-21-14 mg by Method i 500 MG 00:00: 00:[address] tablet 00 :00 daily. dextrometho No 5mL Q12H Take 5 mL Garcia rphan-guaif 08-20 by mouth Met hodi enesin 00:00: 00:[address] (ROBITUSSIN 00 :00 (twelve) -DM) 10-100 hours. mg/5 mL liquid warfarin 5mg QD Take 5 mg Soledad ston (COUMADIN) 08-19 by mouth Meth matt 5 MG tablet 00:00: 00:[address] 00 :00 ranitidine 2015-08 No 150mg QD Take 150 [place] (ZANTAC) 2-05 -05 mg by Methodi 150 MG 00:00: 00:[address] tablet 00 :00 daily. metoprolol 2015-08 Yes 100mg Q.5D Take 100 [place] succinate 2-04 mg by Methodi XL 00:00: mouth 2 st (TOPROL-XL) 00 (two) 100 mg 24 times a hr tablet day. Hold SBP <100, DBP <60 HR<55 allopurinol 2015-08 300mg QD Take 300 Garcia (ZYLOPRIM) 0-28 01-05 mg by Methodi 300 MG 00:00: 00:[address] tablet 00 :00 daily. Vital Signs Vital Name Observation Time Observation Value Comments Source Body height 2020-02-24 09:42:00 188 cm Jose Sepulveda Body weight 2020-02-24 09:42:00 112.946 kg Jose Sepulveda BMI 2020-02-24 09:42:00 31.97 kg/m2 Jose Sepulveda Systolic blood 2019-09-12 16:22:57 132 mm[Hg] Rasheed Sepulveda pressure Diastolic blood 2019-09-12 16:22:57 60 mm[Hg] [place]astaf[place] pressure Heart rate 2019-09-12 16:22:57 59 /min Jose Sepulveda Body temperature 2019-09-12 16:22:57 35.89 Katerin Keeley turner Rastafari Respiratory rate 2019-09-12 16:22:57 18 /min Keeley turner Rastafari Oxygen saturation in 2019-09-12 16:22:57 95 /min Jose Sepulveda Arterial blood by Pulse oximetry Procedures Procedure Date / Time Performing Clinician Source Performed XR SHOULDERS BILATERAL 2020-02-24 09:53:58 Barney Flores on [place]ast[place] ARTHROCENTESIS 2020-02-24 09:30:00 Barney Flores Ok thodist ASPIR&/INJ MAJOR JT/BURSA W/O US BASIC METABOLIC PANEL 2019-09-12 00:00:00 Ivy Anderson Rastafari Fang ESTIMATED GFR 2019-09-12 00:00:00 Ivy Anderson odist Fang HEMODIALYSIS 2019-09-11 18:33:45 Ivy Anderson Meth odist Fang EEG AWAKE/ASLEEP LESS 2019-09-10 22:55:07 Magdiel Rayist THAN 41 MIN MRA NECK WO CONTRAST 2019-09-10 14:37:00 Magdiel Ray MRA HEAD WO CONTRAST 2019-09-10 14:25:00 Magdiel Ray MRI BRAIN WO CONTRAST 2019-09-10 14:05:00 Sita Bragaist AMMONIA LEVEL 2019-09-10 07:35:00 Kortney Rosario Meth odist CREATINE KINASE, TOTAL 2019-09-10 07:35:00 Kortney Rosario Rastafari (CPK) GABAPENTIN LEVEL 2019-09-10 07:35:00 Kortney Rosario LACTIC ACID LEVEL 2019-09-10 06:41:00 Kortney Rosario Ok thodist DORINA 2019-09-09 20:46:00 Chica Pascual ethodist Imarendenewe FOLATE LEVEL 2019-09-09 20:46:00 Sita Braga Me thodist VITAMIN B12 LEVEL 2019-09-09 20:46:00 Sita Braga Rastafari C-REACTIVE PROTEIN 2019-09-09 20:46:00 Sita Braga Rastafari HOMOCYSTINE, PLASMA 2019-09-09 20:46:00 Sita Braga Rasheed tay Rastafari CORTISOL LEVEL, RANDOM 2019-09-09 20:46:00 Sita Braga ston Rastafari SEDIMENTATION RATE 2019-09-09 20:46:00 Sita Braga Rastafari RHEUMATOID FACTOR 2019-09-09 20:46:00 Sita Braga Rastafari THYROID STIMULATING 2019-09-09 20:46:00 Sita Braga Rasheed n Rastafari HORMONE T4, FREE 2019-09-09 20:46:00 Sita Braga Ok thodist T3 2019-09-09 20:46:00 Sita Braga Ok thodist SYPHILIS TOTAL ANTIBODY 2019-09-09 20:46:00 Sita Braga [place] HIV AG/AB COMBINATION 2019-09-09 20:46:00 Sita Braga yue Rastafari VITAMIN D 25 HYDROXY 2019-09-09 20:46:00 Sita Braga [place] on Rastafari LEVEL CT HEAD WO CONTRAST 2019-09-09 18:17:32 Renetta Love HEMODIALYSIS 2019-09-09 18:02:28 Liyah Madrigal Rastafari XR CHEST 1 VW PORTABLE 2019-09-09 14:14:22 Renetta Love COMPREHENSIVE METABOLIC 2019-09-09 14:14:00 Renetta Love Rastafari PANEL HC COMPLETE BLD COUNT 2019-09-09 14:14:00 Renetta Love W/AUTO DIFF PROTHROMBIN TIME WITH INR 2019-09-09 14:14:00 Renetta Love PARTIAL THROMBOPLASTIN 2019-09-09 14:14:00 Renetta Love TIME (PTT) MAGNESIUM LEVEL 2019-09-09 14:14:00 Renetta Love on Rastafari B NATRIURETIC PEPTIDE 2019-09-09 14:14:00 Renetta Love Jose Rastafari ESTIMATED GFR 2019-09-09 14:14:00 Renetta Love Noelle Mace on Rastafari ECG 12-LEAD 2019-09-09 14:06:16 Renetta Love Noelle Mace on [place] CRITICAL CARE, E/M 2019-09-09 13:33:56 Haroon Harris Rastafari 30-74 MINUTES HEMODIALYSIS 2019-09-01 11:40:20 Arelis Durbin Me thodist ANTI XA, UNFRACTIONATED 2019-09-01 04:01:00 Callie Prado Rastafari PROTHROMBIN TIME WITH INR 2019-09-01 04:01:00 Jose Salma Cholo esquivel Garcia Rastafari PROTHROMBIN TIME WITH INR 2019-08-31 04:09:00 Sabino Jiang usyue Rastafari BASIC METABOLIC PANEL 2019-08-31 04:09:00 Maddie Seals Rastafari HC COMPLETE BLD COUNT 2019-08-31 04:09:00 Maddie Seals Rastafari W/AUTO DIFF ESTIMATED GFR 2019-08-31 04:09:00 Maddie Seals Me thodist ANTI XA, UNFRACTIONATED 2019-08-31 04:09:00 Maddie Seals [place]ast[place] ANTI XA, UNFRACTIONATED 2019-08-30 21:10:00 Gnaga Paulino Rastafari ANTI XA, UNFRACTIONATED 2019-08-30 14:45:00 Ganga Paulino Rastafari PROTHROMBIN TIME WITH INR 2019-08-30 06:20:00 Sabino Jiang usyue Rastafari COMPREHENSIVE METABOLIC 2019-08-30 06:20:00 Bucky Suarez [place]ast[place] PANEL ANTI XA, UNFRACTIONATED 2019-08-30 06:20:00 Callie Prado Rastafari ESTIMATED GFR 2019-08-30 06:20:00 Sabino Jiang Meth odist ANTI XA, UNFRACTIONATED 2019-08-29 18:59:00 Callie Prado Rastafari BASIC METABOLIC PANEL 2019-08-29 13:43:00 Blane Rachel ESTIMATED GFR 2019-08-29 13:43:00 VirginieBlane Meth odist ANTI XA, UNFRACTIONATED 2019-08-29 13:16:00 Callie Prado Rastafari HEMODIALYSIS 2019-08-29 10:19:54 VirginieBlane Meth odist BASIC METABOLIC PANEL 2019-08-29 04:50:00 Blane Rachel n Rastafari ANTI XA, UNFRACTIONATED 2019-08-29 04:50:00 PradoCallie peterson Rastafari PROTHROMBIN TIME WITH INR 2019-08-29 04:50:00 Sabino Jiang usyue Rastafari ESTIMATED GFR 2019-08-29 04:50:00 VirginieBlane Bc odist HC COMPLETE BLD COUNT 2019-08-28 05:01:00 Sabino Jiang Rastafari W/AUTO DIFF BASIC METABOLIC PANEL 2019-08-28 05:01:00 Sabino Jiang PROTHROMBIN TIME WITH INR 2019-08-28 05:01:00 Sabino Jiang Rastaf[place] ANTI XA, UNFRACTIONATED 2019-08-28 05:01:00 Callie Prado Rastafari ESTIMATED GFR 2019-08-28 05:01:00 Sabino Jiang odist ANTI XA, UNFRACTIONATED 2019-08-27 22:10:00 Callie Prado Rastafari ANTI XA, UNFRACTIONATED 2019-08-27 15:10:00 Callie Prado Rastafari XR CHEST 1 VW PORTABLE 2019-08-27 14:09:23 Balne Rachel on Rastafari FERRITIN LEVEL 2019-08-27 11:00:00 VirginieBlane Meth odist TOTAL IRON BINDING 2019-08-27 11:00:00 VirginieBlane Garcia Tony ethodist CAPACITY HEMODIALYSIS 2019-08-27 07:43:10 Arelis Durbin Me thodist CBC HEMOGRAM 2019-08-27 04:00:00 Ganga Paulino Meth odist ANTI XA, UNFRACTIONATED 2019-08-27 04:00:00 Callie Prado Rastaf[facility] ANTI XA, UNFRACTIONATED 2019-08-26 20:00:00 Ganga Paulino Rastafari OR FL < 1 HOUR 2019-08-26 19:17:54 Ganga Paulino Meth odist ANTI XA, UNFRACTIONATED 2019-08-26 11:35:00 Callie Prado Rastaf[place] BASIC METABOLIC PANEL 2019-08-26 05:15:00 Ganga Paulino HC COMPLETE BLD COUNT 2019-08-26 05:15:00 Ganga Paulino W/AUTO DIFF PROTHROMBIN TIME WITH INR 2019-08-26 05:15:00 Ganga Paulino [place] ESTIMATED GFR 2019-08-26 05:15:00 Callie Prado Meth odist ANTI XA, UNFRACTIONATED 2019-08-26 05:15:00 PradoCallie peterson Rastafari TYPE AND SCREEN 2019-08-26 04:15:00 Ganga Paulino odist PARTIAL THROMBOPLASTIN 2019-08-26 04:15:00 Ganga Paulino on Rastafari TIME (PTT) ANTI XA, UNFRACTIONATED 2019-08-25 20:30:00 Callie Prado Rastafari ANTI XA, UNFRACTIONATED 2019-08-25 11:30:00 Callie Prado Rastafari COPPER LEVEL, SERUM 2019-08-25 11:30:00 Andres Rodriguez HEPATITIS B SURFACE AB, 2019-08-25 08:00:00 Mahin Roberts QUANTITATIVE HEPATITIS B SURFACE 2019-08-25 08:00:00 Mahin Roberts ANTIGEN CBC HEMOGRAM 2019-08-25 04:15:00 Ganga Paulino Meth odist ANTI XA, UNFRACTIONATED 2019-08-25 04:15:00 Callie Prado Rastafari PROTHROMBIN TIME WITH INR 2019-08-24 20:20:00 Callie Prado [facility]ast[facility] PARTIAL THROMBOPLASTIN 2019-08-24 20:20:00 Callie Prado on Rastafari TIME (PTT) ANTI XA, UNFRACTIONATED 2019-08-24 20:20:00 Callie Prado Rastafari USP HEMODIALYSIS ACCESS 2019-08-24 16:59:18 Lilliana Tomlinson Rastaf[facility] HEMODIALYSIS 2019-08-24 16:56:01 Arelis Durbin Garcia Me thodist COMPREHENSIVE METABOLIC 2019-08-24 03:55:00 Maddie Sealschery white Rastafari PANEL HC COMPLETE BLD COUNT 2019-08-24 03:55:00 Maddie Seals Sonu turner Rastafari W/AUTO DIFF LIPID PANEL 2019-08-24 03:55:00 Maddie Seals Ok thodist HEMOGLOBIN A1C 2019-08-24 03:55:00 Maddie Seals Ok thodist ESTIMATED GFR 2019-08-24 03:55:00 Maddie Seals Ok thodist TTE COMPLETE, WO 2019-08-24 02:35:00 Tal Abdi Rastafari CONTRAST, W DOPPLER ([id number]) TROPONIN 2019-08-24 00:27:00 Brianna Donovan Meth odtran ARTERIAL BLOOD GAS 2019-08-23 23:10:00 Brianna Donovan M ethodist ECG 12-LEAD 2019-08-23 21:31:30 Brianna Donovan Meth odist TROPONIN 2019-08-23 21:15:00 Brianna Donovan Meth odist INFLUENZA ANTIGEN TEST, 2019-08-23 21:10:00 AubreyMaddie carballo Sonu Sepulveda REFLEX NEGATIVE TO RPP RESPIRATORY PATHOGEN 2019-08-23 21:10:00 AubreyMaddie carballo Sonu Mace on Rastafari PANEL MRA NECK WO CONTRAST 2019-08-23 19:12:21 Andres Rodriguez MRA HEAD WO CONTRAST 2019-08-23 18:50:56 Andres Rodriguez MRI BRAIN WO CONTRAST 2019-08-23 18:50:32 Maddie Seals Rastafari PROTHROMBIN TIME WITH INR 2019-08-23 17:45:00 Sabino Jiangist VITAMIN B12 LEVEL 2019-08-23 17:45:00 Andres Rodriguez Ok thodist VITAMIN B1 LEVEL, WHOLE 2019-08-23 17:45:00 Andres Rodriguez BLOOD COPPER LEVEL, SERUM 2019-08-23 17:45:00 Andres Rodriguez XR CHEST 1 VW PORTABLE 2019-08-23 16:02:08 Maddie Seals Soledad alvarado Rastafari CT HEAD WO CONTRAST 2019-08-23 12:15:16 Lilliana Tomlinson on Rastafari HC COMPLETE BLD COUNT 2019-08-23 11:36:00 Lilliana Tomlinson Rastafari W/AUTO DIFF COMPREHENSIVE METABOLIC 2019-08-23 11:36:00 Lilliana Tomlinsonist PANEL TROPONIN 2019-08-23 11:36:00 Lilliana Tomlinson ethodist ESTIMATED GFR 2019-08-23 11:36:00 Lilliana Tomlinson ethodist THYROID STIMULATING 2019-08-23 11:36:00 Lilliana Tomlinson on Rastafari HORMONE B NATRIURETIC PEPTIDE 2019-08-23 11:35:00 Lilliana Tomlinson Rastafari AMMONIA LEVEL 2019-08-23 11:35:00 Lilliana Tomlinson ethodist ECG 12-LEAD 2019-08-23 11:24:05 Lilliana Tomlinson ethodist ECG ED PRELIMINARY 2019-08-23 11:15:09 Lilliana Tomlinson INTERPRETATION Plan of Care Planned Activity Planned Date Details Comments Source Future Scheduled 2020-05-19 INFLUENZA VACCINE Rasheed tay Rastafari Test 00:00:00 [code = INFLUENZA VACCINE] Future Scheduled 2002 65+ PNEUMOCOCCAL Jose Rastafari Test 00:00:00 VACCINE (1 of 2 - PCV13) [code = 65+ PNEUMOCOCCAL VACCINE (1 of 2 - PCV13)] Future Scheduled 1987 SHINGLES VACCINES (#1) H catherine Rastafari Test 00:00:00 [code = SHINGLES VACCINES (#1)] Future Scheduled 1947 DIABETIC FOOT EXAM Keeleyt on Rastafari Test 00:00:00 [code = DIABETIC FOOT EXAM] Future Scheduled 1945 URINE MICROALBUMIN Keeleyt on Rastafari Test 00:00:00 [code = URINE MICROALBUMIN] Future Scheduled 1937 DIABETIC RETINAL EYE Soledad alvarado Rastafari Test 00:00:00 EXAM [code = DIABETIC RETINAL EYE EXAM] Encounters Start End Encounter Admission Attending Care Care Encounter Source Date/Time Date/Time Type Type Clinicians Facility Department ID 2020-04-01 2020-04-[address] [facility] [id number] 12:57:56 14:08:33 Visit Sae Delaneyr [id number] 2020-03-11 2020-03-11 Safia Peterson [facility] [id number] 00:00:00 00:00:00 (Out) [facility] [id number] [place] [id number] Professio [phone] [place] [address] [address] 2020-03-08 2020-03-08 Telephone Pob1, Acute [facility] [id number] 00:00:00 00:00:00 [facility] [id number] [place] [id number] Professio [phone] nal [facility] Office [address] 2020-02-29 2020-02-29 Safia Peterson [facility] [id number] 00:00:00 00:00:00 (Out) [facility] [id number] [place] [id number] Professio [phone] [place] [address] [address] 2020-02-25 2020-02-25 Laboratory Lab, [facility] [id number] 10:58:24 11:18:24 Only Fam Pob I Health [id number] [place] [id number] Professio [phone] nal [facility] Office Building One 2020-02-24 2020-02-24 Outpatient BARNEY FLORES [facility] [id number] [place] 00:00:00 00:00:[address] 2020-02-24 2020-02-24 Outpatient ANULE BARNEY [facility] 2100 [id number] [place] 00:00:00 00:00:[address] 2020-02-08 2020-02-08 Office Link, [facility] 1.2.840.114 [id number] 12:40:48 16:00:35 Visit Johan Nevarez AMBULATOR 350.1.13.21 Y 0.2.7.2.686 [phone] 300 2019-09-09 2019-09-12 Inpatient ALEA, [facility] [id number] [place] 00:00:00 00:00:00 WILI [address] 2019-08-23 2019-09-01 Inpatient PRADO, [facility] [id number] [place] 00:00:00 00:00:00 CALLIE [address] Results Test Description Test Time Test Comments Results Result Sourc e Comments Shoulder left Barney Flores MD [facility] yue cortisone 8 02/24/2020 12:53 Rastafari injection 09:30:00 PMShoulder left cortisone injectionConsent given by: patientSite marked: site markedTimeout: Immediately prior to procedure a time out was called to verify the correct patient, procedure, equipment, biomedical equipment support specialist and site/side marked as required Supporting DocumentationIndicatio ns: pain Procedure DetailsPreparation: Patient was prepped and draped in the usual sterile fashionUltrasound guided: noPlatelet Rich Plasma Used: no PRP UsedLocation: shoulder - L subacromial bursa Left side:Needle size: 25 G (25 gauge)Approach: anterolateralLeft shoulder medications administered: 6 mg betamethasone acetate & sodium phosphate 6 mg/mL; 1 mL lidocaine 10 mg/mL (1 %)Aspirate amount: 0 mLPatient tolerance: patient tolerated the procedure well with no immediate complications Right shoulder Barney Flores MD [facility] shahab cortisone 8 02/24/2020 12:53 PMRight Me thodist injection 09:30:00 shoulder cortisone injectionConsent given by: patientSite marked: site markedTimeout: Immediately prior to procedure a time out was called to verify the correct patient, procedure, equipment, biomedical equipment support specialist and site/side marked as required Supporting DocumentationIndicatio ns: pain Procedure DetailsPreparation: Patient was prepped and draped in the usual sterile fashionUltrasound guided: noPlatelet Rich Plasma Used: no PRP UsedLocation: shoulder - R subacromial bursa Right side:Needle size: 25 G (25 gauge)Approach: anterolateralRight shoulder medications administered: 1 mL lidocaine 10 mg/mL (1 %); 6 mg betamethasone acetate & sodium phosphate 6 mg/mLAspirate amount: 0 mLPatient tolerance: patient tolerated the procedure well with no immediate complications Basic metabolic panel 2019-09-12 10:32:23 Test Item Value Reference Range Interpretation Comme nts Sodium (test code = 2951-2) 141 135- 148 mEq/L Potassium (test code = 2823-3) 4.5 3.5- 5.0 mEq/L Chloride (test code = 2075-0) 101 98- 112 mEq/L CO2 (test code = 2027-9) 29 24- 31 mEq/L Anion gap (test code = 13096-4) 11@ANIO 7- 15 mEq/L BUN (test code = 3094-0) 48 mg/dL 8-23 H Creatinine (test code = 2160-0) 7.38 mg/dL 0.7-1.2 H Glucose (test code = 2345-7) 87 mg/dL 65-99 Calcium (test code = 14482-1) 9.8 mg/dL 8.8-10.2 Lab Interpretation (test code = 03913-0) Abnormal Jose MethodistEstimated [id number] 10:32:23 Test Item Value Reference Range Interpretation Comments Estimated GFR (test 6 mL/min/1.73 m2 Maria Del Rosario Rowanerika jennynette Units code = 5488) InterpretationG 1 >=90 Asuncion l or highG2 60-89 Mildly decrease dG3a 45-59 Mil dly to moderately decr xkfyqL5e 30-44 Moderately to s everely decreasedG4 15-29 Severe ly decreasedG5 <15 Kidney emir lureThe eGFR was calcul ated using the Chron ic Kidney Disease Epidemiology Collaboration ( CKD-EPI) equation. Interpretation is based on recommendati ons of the National Ki dney Foundation-Kidn ey Disease Outcome s Quality Initiat phu (NKF-KDOQI) pub lished in 2013. Lab Interpretation Abnormal (test code = 66963-3) Jose JaquezistGabapentin [id number] 19:47:39 Test Item Value Reference Interpretation Comments Range Gabapentin 6.5 ug/mL 2-20 INTERPRETIVE IN FORMATION: (test code = GabapentinThera peutic Range: 2 2098-2) - 20 ug/mLToxic : Not well establishedPhar macokinetics of gabapentin vary widely among patients, parti cularly those with compromise d renal function. Adver se effects may include somnole nce, dizziness, ataxia, and fat igue. Test developed and c haracteristics determined by [employer]. S ee Compliance Statement B: TIKI.VN/CSP erformed by Standardized Safety,[address] [place] [address] sjp .TIKI.VN, Derik Goncalves MD, Lab. Director [place] RtmhpivfaGCC1813-13-04 14:47:10 Test Item Value Reference Range Interpretation Comments DORINA screen (test Negative Negative Test perfor med using NOVA code = 550) Lite DAPI DORINA k it (Indirect Immunofluoresce nce Assay) for Anti-Nuclea r Antibody on [employer] QUANTA-Ly ser 160 Analyzer. [place] MethodtranEE (routine)2019-09-11 08:02:42EEG AWAKE AND ASLEEP Date of Service: 09/10/2019 Awake Recordings: The occipital dominant rhythm is 7-8 Hz and is poorly sustained. 4-5 Hz and intermittent 1.5-3 Hz activity is present in all regions. 18-22 Hz activity was present in all regions. Sleep Recording: No epileptiform activity was recorded. Hyperventilation: Was not performed. Photic Stimulation: Was not performed. Impression: The findings are consistent with a diffuse disturbance in brain function. No seizures occurred. ICD-10 Code: R569 [place] MethodistMRA Head Wo Tttouqix9528-65-18 15:31:24Hm Interface, Radiology Results Incoming - 09/10/2019 3:34 PM CSTEXAMINATION: MRA HEAD WO CONTRASTCL INICAL HISTORY: altered mental statusCOMPARISON: MRA head 08/23/2019TECHNIQUE: Vuef-nu-cmprvg MRA images of the kake of Cruz vessels were obtained with multiplanar and 3-D reconstructive algorithms.FINDINGS:Motion degradation limits the sensitivity of evaluation.The major branches of the anterior and posterior arterial circulations of the brain appear patent without evidence of aneurysm or hemodynamically significant stenosis. Bilateral posterior communicating arteries. Slight dominance of the left vertebral artery. Diminutive right A1 segment.IMPRESSION:No aneurysm or hemodynamically significant stenosis of the intracranial arterial circulation.[id number] MethodistMRA Neck Wo Vskuezpu6626-49-30 15:22:25Hm Interface, Radiology Results 09/10/2019 3:25 PM CSTEXAMINATION: MRA NECK WO CONTRASTCLINICAL HISTORY: altered mental statusCOMPARISON: None.TECHNIQUE:Neck MRA using 2D and 3D fowc-qy-dzzmat technique with multi-planar MIP and 3D reconstruction.FINDINGS:There is normal flow-related signal with no occlusion along bilateral common, internal, and external carotid arteries. There is mildcalcific atherosclerotic plaque without significant stenosis according to the NASCET criteria (0%).There is normal flow- related signal with no significant stenosis or occlusion along bilateral vertebral arteries. The left vertebral artery is dominant.IMPRESSION:Unremarkable neck MRA with no significant carotid or vertebral artery stenosis.[id number] MethodistMRI Brain Wo Contrast 2019-09-10 15:12:55Hm Interface, Radiology Results 09/10/2019 3:16 PM CSTEXAMINATION: MRI BRAIN WO CONTRASTCLINICAL HISTORY: Altered level of consciousness (LOC) unexplainedCOMPARISON: CT brain September 09, 2019FINDINGS: Diffusion images demonstrate no evidence of acute anemia.Conventional images demonstrate mild nonspecific cerebral white matter microvascular changes.There is at least moderate enlargement of the [...] pressure hydrocephalus is felt to be less likely.There is mild to moderate cerebellar volume loss.There isminimal mucosal thickening in the ethmoid sinus and right mastoid..IMPRESSION:Chronic microvascular white matter changes and volume loss without acute abnormality and without the change from the prior study.[id number] MethodistECG 12 neqd4017-65-39 11:59:10 Test Item Value Reference Range Interpretation Comments Ventricular rate (test 55 code = 253) Atrial rate (test code 55 = 255) IL interval (test code 270 = 266) QRSD interval (test 178 code = 260) QT interval (test code 512 = 264) QTC interval (test 489 code = 265) P axis 1 (test code = 48 267) QRS axis 1 (test code -47 = 268) T wave axis (test code 13 = 270) EKG impression (test Sinus bradycardia with code = 273) 1st degree AV block-Right bundle branch block-Left anterior fascicular block-^^^ Bifascicular block ^^^-Minimal voltage criteria for LVH, may be normal variant-Abnormal ECG-In automated comparison with ECG of 23-AUG-2019 21:31,-Criteria for Septal infarct are no longer present-T wave inversion more evident in Anterior leads- Garcia MethodistAmmonia dezbf6359-66-81 08:29:26 Test Item Value Reference Range Interpretation Comments Ammonia (test code = 1841-6) 21 umol/L 16-60 [place] MethodistCreatine kinase, total (CPK)2019-09-10 08:27:47 Test Item Value Reference Range Interpretation Comments Creatine kinase (test code = 2157-6) 19 U/L 39-308 L Lab Interpretation (test code = Abnormal 35372-6) [place] MethodistLactic acid txsqw2221-20-98 08:19:43 Test Item Value Reference Range Interpretation Comments Lactic acid (test code = 94721-7) 0.7 mmol/L 0.5-2.2 Garcia MethodistSyphilis total vtjclrhr3123-35-13 23:05:17 Test Item Value Reference Range Interpretation Comments Syphilis total Non-reactive Non-reactive No serologica l antibody (test code evidence of syphilis = 6194) infection. Garcia MethodistVitamin D 25 hydroxy [id number] 22:42:31 Test Item Value Reference Range Interpretation Comments Vitamin D, 47.3 ng/mL 30-150 This assay repo rts the 25-hydroxy (test sum of 25-h ydroxy code = 1988-) vitamin D3 an d 25-hydroxy maryan min D2. Reference range :0-17 years:Deficienc y: less than 20ng/mLOpt imum level: greater than or equal to 20 ng/ mL.18 years and older:Deficienc y: less than 20ng/mLInsuffic iency: 20-29 ng/mLOpti mum Level: 30-80 ng /mLThe assay reportabl e range is 3.4 155.9 n g/mL. Levels higher t farrell 150 ng/mL may be as sociated with toxicity.I f toxicity is cli nically suspected and t he reported result is >155.9 ng/mL,co ntact lab for alternative methods to obtain a def initive level.If separa te quantitation of 25-hydroxy maryan min D3 and 25-hydroxy vitamin D2 is needed, p zoila contact lab for alternative met hods. Jose MethodistHIV Ag/Ab lqwwfldrtpv0404-25-47 22:27:28 Test Item Value Reference Range Interpretation Comments HIV Ag/Ab combination (test code Non-reactive Non-reactive = 5299) Jose MethodistSedimentation stzo7636-93-74 22:25:52 Test Item Value Reference Range Interpretation Comments Sedimentation rate (test code = 34 0- 10 mm/hr H 78185-0) Lab Interpretation (test code = Abnormal 49726-6) Jose JaquezistVitamin B12 zpugg5561-87-75 21:45:49 Test Item Value Reference Range Interpretation Comments Vitamin B12 (test code 1226 pg/mL 211-946 H Signi ficant overlap = 2132-9) exists between normal and deficiency states.However, most patients with deficiencies wi ll have Serum B12 <200 pg/mL. Lab Interpretation Abnormal (test code = 04738-2) Garcia MethodistFolate eemrb5785-62-80 21:45:49 Test Item Value Reference Range Interpretation Comments Folate (test code = 2284-8) 13.9 ng/mL 4.8-24.2 Jose JaquezistT4, [id number] 21:39:13 Test Item Value Reference Range Interpretation Comments T4, free (test code = 3024-7) 1.0 ng/dL 0.9-1.7 Jose JaquezistThyroid stimulating rzfmpsy5198-12-07 21:39:13 Test Item Value Reference Range Interpretation Comments TSH (test code = 3016-3) 4.95 0.27- 4.20 uIU/mL H Lab Interpretation (test code = Abnormal 47860-6) Jose SepulvedaCortisol level, ujjrka3818-89-23 21:39:12 Test Item Value Reference Range Interpretation Comments Cortisol, random 9 ug/dL Reference R anges are not (test code = 2143-6) establi shed for non-timed Cortisol levels .Reference Range for Timed Cortisol: 6 - 10 AM 6 - 18 ug/dl 4 - 8 PM 3 - 11 ug/ dl Jose WekfuxyqlL87434-26-02 21:39:12 Test Item Value Reference Range Interpretation Comments T3 (test code = 3053-6) 69 ng/dL 80-200 L Lab Interpretation (test code = Abnormal 21809-9) Garcia MethodistC-reactive dtyyaxq4824-52-59 21:32:32 Test Item Value Reference Range Interpretation Comments CRP (test code = 1988-5) 1.29 mg/dL 0-0.5 H Lab Interpretation (test code = Abnormal 01789-8) Jose MethodistRheumatoid otsapy3662-18-59 21:26:55 Test Item Value Reference Range Interpretation Comments Rheumatoid factor (test code = 98749-3) <10 0- 13 IU/mL Garcia MethodistHomocystine, vxczvl7262-18-38 21:26:55 Test Item Value Reference Range Interpretation Comments Homocysteine (test 15.5 umol/L 0-15 H The risk for code = 46186-7) coronary vas cular disease increas es progressively w ith homocysteine concentration. A 3.4 times great er risk is associ ated with a homocyst eine concentration o f greater than 15.8 umol/L as lien red to a concentrat ion below 14.1 umol /L. Lab Interpretation Abnormal (test code = 15281-3) Garcia MethodistCT Head Wo Vgkrslmy7016-58-27 18:21:14Hm Interface, Radiology Results Incoming - 09/09/2019 6:24 PM CSTEXAM: CT HEAD WO CONTRASTCLINICAL H ISTORY: confusion tremorsTECHNIQUE: Noncontrast enhanced images of the brain were obtained from theskull base to the vertex. Both soft tissue and bone reconstruction algorithms were performed. CT scans are performed using radiation dose reduction techniques (iterative reconstruction and/or automated exposure control). Technical factors are evaluated and adjusted to ensure appropriate moderation ofexposure. Automated dose management technology is applied to adjust radiation exposure while achieving a diagnostic quality image.COMPARISON: MRI brain, 08/23/2019; CT brain, 08/23/2019.FINDINGS:The shrestha-w adi matter differentiation is preserved and without evidence of acute territorial infarction.Sulci and ventricles are prominent from age-related parenchymal volume loss. In addition, there is scattered subcortical and deep white matter hypoattenuation, likely reflective of chronic small vessel ischemic changes. There is no evidence for acute intracranial hemorrhage, mass, mass effect, hydrocephalus,or extra-axial fluid collection.Bilateral orbital lens replacements are noted. Paranasal sinuses are clear. Mastoid air cells are normally pneumatized. Vascular calcifications are noted, most prominent within the bilateral cavernous ICAs. Osseous structures are intact.IMPRESSION:Mild to moderate involutional changes as detailed with no CT evidence for acute intracranial abnormality.[facility]-[id number] MethodistXR Chest 1 Vw Portable 2019-09-09 16:17:34Hm Interface, Radiology Results 09/09/2019 4:20 PM CSTEXAMINATION: XR CHEST 1 VW PORTABLECLINICAL HISTORY: coughCOMPARISON: Chest x-ray 08/27/2019.IMPRESSION:Lines and tubes: None.Heart and mediastinum: Interval worsening of pulmonary vascular congestion, interstitial and alveolar opacities related to pulmonary edema, and bilateral small pleural effusions with associated presumed compressive bibasilar atelectasis.Lungs: Stable appearance of the cardiomediastinal silhouette, which is enlarged.Bones: Several old healed left-sided rib fracturesMEMORIAL HEALTH SYSTEM MARIETTA [facility]-[id number] Dictated and approved by president practicing urologist/fellow: Giorgio Taylor M.D.I, Joshua Soto MD, personally reviewed the images and resident's/fellow's findings and agree with the final report.[facility] natriuretic umcgzyy4055-98-62 15:16:36 Test Item Value Reference Range Interpretation Comments BNP (test code = 39485-9) 288 pg/mL 0-100 H Lab Interpretation (test code = Abnormal 31556-9) [facility]Com[facility] tyzep5350-27-35 14:50:53 Test Item Value Reference Range Interpretation Comments Sodium (test code = 142 135- 148 mEq/L 2951-2) Potassium (test code = 4.6 3.5- 5.0 mEq/L 2823-3) Chloride (test code = 102 98- 112 mEq/L 2075-0) CO2 (test code = 2027-9) 31 24- 31 mEq/L Anion gap (test code = 9@ANIO 7- 15 mEq/L 60352-8) BUN (test code = 3094-0) 36 mg/dL 8-23 H Creatinine (test code = 6.34 mg/dL 0.7-1.2 H 2160-0) Glucose (test code = 92 mg/dL 65-99 2345-7) Calcium (test code = 9.3 mg/dL 8.8-10.2 38057-2) Protein (test code = 7.0 g/dL 6.3-8.3 9994.6-7.0 2885-2) g/dL1 wmkh8725.4-7.6 g/dL7 months-9qfvp577 .1- 7.3 g/dL1-2 lmtaq354.6-7.5 g/dL>3 jdwui151.0-8.0 g/dF94-4140155. 3-8 .3 g/dL Albumin (test code = 3.1 g/dL 3.5-5 L 1751-7) A/G ratio (test code = 0.8 0.7-3.8 1759-0) Alkaline phosphatase 89 U/L 40-129 (test code = 6768-6) AST (test code = 1920-8) 16 U/L 10-50 ALT (test code = 1742-6) <5 5-50 A Total bilirubin (test 0.3 mg/dL 0-1.2 code = 1974-) Lab Interpretation (test Abnormal code = 50399-7) Jose MethodistMagnesium scilg0401-38-55 14:50:53 Test Item Value Reference Range Interpretation Comments Magnesium (test code = 35602-0) 2.2 mg/dL 1.6-2.4 Garcia MethodistPartial thromboplastin time, erpgjzuld5813-48-03 14:42:24 Test Item Value Reference Range Interpretation Comments PTT (test code = 53.9 23.0- 36.0 sec H PTT thera peutic range 43119-8) for unfractiona kael heparin is61.0- 112.0 seconds which corresponds to Anti-Xa0.3-0.7 U/ml. Lab Interpretation Abnormal (test code = 00617-0) Jose MethodistProthrombin time with UQK8723-88-94 14:36:21 Test Item Value Reference Range Interpretation Comments Prothrombin time (test 32.6 11.5- 14.5 sec H code = 5902-2) INR (test code = 3.1 The Interna tional 78641-8) Normalized Rati o (INR) is a therapeuti c monitoring tool for patients who ar e stable on oral anticoagulant t herapy. An INR of 2.0-3 .0 is suggested for d eep vein thrombosis/pulm onary embolism. Lab Interpretation Abnormal (test code = 20485-7) [place] [facility] with platelet and ugdanhsagzvb3239-63-82 14:23:55 Test Item Value Reference Range Interpretation Comments WBC (test code = 43663-7) 5.85 4.50- 11.00 k/uL RBC (test code = 27460-4) 3.04 m/uL 4.4-6 L HGB (test code = 718-7) 9.3 g/dL 14-18 L HCT (test code = 4544-3) 32.2 % 41-51 L MCV (test code = 787-2) 105.9 fL 82-100 H MCH (test code = 785-6) 30.6 pg 27-34 MCHC (test code = 786-4) 28.9 g/dL 31-37 L RDW - SD (test code = 57.0 fL 37-55 H 18013-2) MPV (test code = 20454-8) 9.8 fL 8.8-13.2 Platelet count (test code 172 150- 400 k/uL = 10785-6) Nucleated RBC (test code 0.00 /100 WBC = 93215-4) Neutrophils (test code = 75.1 % 39-69 H 09249-1) Lymphocytes (test code = 12.3 % 25-45 L 16872-9) Monocytes (test code = 7.7 % 0-10 46557-2) Eosinophils (test code = 3.9 % 0-5 43138-5) Basophils (test code = 0.5 % 0-1 55091-6) Immature granulocytes 0.5 % 0-1 "Immat ure (test code = 43960-2) granul ocytes" (promyelocytes, myelocytes, metamyelocytes) Lab Interpretation (test Abnormal code = 74522-9) Garcia MethodistCRINEWBERRY COUNTY MEMORIAL HOSPITALVUDX3369-37-47 13:33:56Haroon Harirs MD 09/14/2019 1:38 PMCritical CarePerformed by: Haroon Harris MDAuthorized by: Haroon Harris MD Critical care provider statement: Critical care time (minutes): 40 Critical care time was exclusive of: Separately billable procedures and treating other patients and teaching time Critical care was necessary to treat or prevent imminent or life-threatening deterioration of the following conditions: Metabolic crisis and 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 HRIS ANALYST failure or compromise Critical care was time spent personally by me on the following activities: Development of treatment plan with patient or surrogate, discussions with consultants, discussions with primary provider, examination of patient, interpretation of cardiac output measurements, obtaining history from patient or surrogate, ordering and performing treatments and interventions, ordering and review of laboratory studies, ordering and review of radiographic studies, pulse oximetry, re-evaluation of patient's condition and review of old charts Yang 'yes' if you are taking over critical care for this patient from another provider.: no Comments: Pt p/w fluctuating AMS, weakness, visual distrubtances- pt found to have BP > 200systolic requriing IV hydralazine for acute BP management, renal consulted, neurologic evaluation initaited, r/o infectoius causes of posssible delerium, admitted for further managementGibsonville MethodistAnti Xa, cyjcotcgbtcder3924-15-03 04:23:14 Test Item Value Reference Range Interpretation Comments Anti Xa, unfractionated 0.28 U/mL Ther apeutic Range: (test code = 3274-8) 0.30 - 0.70 U/mL [place] MethodistCopper level, jzhmx9500-88-73 00:46:00 Test Item Value Reference Range Interpretation Comments Copper (test code 99.4 ug/dL 70-140 INTERPRETI VE INFORMATION: = 2939-7) Copper, Serum o r PlasmaElevated results may be due to skin or collection-rela kael contamination, including the use of a no ncertified metal-free collection/ferreira sport tube. If contaminatio n concerns exist due to el evated levels of serum /plasma copper, confirm ation with a second specim en collected in a certified metal-free tube is recommended.Ser um copper may be elevated with infection, infl ammation, stress, and blueprinting and photocopy supervisor per supplementation . In females, elevat ed copper may also be cau sed by oral contraceptives and (conc entrations may be elevated up to 3 times normal du ring the third trimester ).Test developed and characteristics determined by [employer] Joshua alejandra. See Compliance Stat ement B: TIKI.VN/CSP erformed by [facility],[address], [place] [address] jmg .Splice.Derik fermin MD, Lab. Director [place] MethodistFerritin zppvo8711-61-73 14:25:24 Test Item Value Reference Range Interpretation Comments Ferritin level (test code = 2276-4) 835 ng/mL 30-400 H Lab Interpretation (test code = Abnormal 97056-5) [place] MethodistTotal iron binding mgnvrwfq0186-14-53 12:23:21 Test Item Value Reference Range Interpretation Comments Iron level (test code = 2498-4) 42 ug/dL 59-158 L Iron binding capacity (test code = 156 ug/dL 260-460 L 2500-7) % Saturation (test code = 2502-3) 26.9 % 20-40 Lab Interpretation (test code = Abnormal 28408-4) [place] MethodistHepatitis B surface Ab, bzmuozwycfsw7238-45-37 09:35:24 Test Item Value Reference Range Interpretation Comments Hepatitis B surface Ab 143.36 IU/L The a nti-HBs is greater (test code = 5193-8) than or equal to 10 IU/L. This saad ent has either had an a ntibody response to HBV vaccination, re ceived a transfusion, or has recovered from HBV infection. This patient should be consi dered immune to hepat itis B.An anti-HBs result greater than or equal t o 10 IU/L implies immunit y. For post-vaccinatio n antibody testin g guidelines for the general public refer to MMWR July 202004/Vol. 54(No . 16);-, and f or healthcare work ers refer to MMWR 2012/Vol. 62(No . 10);-19.Refere nce Interval: anti- HBs 9.99 IU/L or less .. ..... Ftmgnyvh39.00 I U/L or greater .... PositiveResults greater than 1,000.00 I U/L are reported as gre ater than 1,000.00 IU/L. This assay should no t be used for blood donor screening, asso ciated re-entry protoc ols, or for screening H uman Cell, Tissues a nd Cellular and Tissue-Based Pr oducts (HCT/P).Perform ed by [facility],[address], [place] [address] owd .NOTIK, Derik wilkinson MD, Lab. Director [facility] grngjtjl0552-21-95 04:36:21 Test Item Value Reference Range Interpretation Comments WBC (test code = 45572-4) 7.6 4.5- 11.0 k/uL RBC (test code = 60575-6) 2.70 m/uL 4.4-6 L HGB (test code = 718-7) 8.1 g/dL 14-18 L HCT (test code = 4544-3) 28.0 % 41-51 L MCV (test code = 787-2) 103.7 fL 82-100 H MCH (test code = 785-6) 30.0 pg 27-34 MCHC (test code = 786-4) 28.9 g/dL 31-37 L RDW - SD (test code = 77543-0) 58.8 fL 37-55 H MPV (test code = 96488-5) 10.3 fL 6.9-11 Platelet count (test code = 134 K/uL 150-400 L 29513-9) Nucleated RBC (test code = 31267-7) 0.00 /100 WBC Lab Interpretation (test code = Abnormal 27789-1) Garcia MethodistOR [place] < 1 Lxkm4079-11-77 19:39:52Hm Interface, Radiology Results - 08/26/2019 7:43 PM CSTEXAMINATION: OR [place] < 1 HOURCLIN ICAL HISTORY: Intraoperative fluoroscopyIMPRESSION:Fluoroscopy was provided. No radiologist present. Please see procedure report for discussion of procedure, findings and fluoroscopic time.[facility]-[id number] MethodistEchocardiogram complete w contrast and 3D if pwltuv8725-50-44 17:46:06 Test Item Value Reference Range Interpretation Comments Ao Root Diameter (test 3.98 cm code = 7077884645) AoV Area, Vmax (test 3.34 cm2 code = 7163481304) AoV Area, VTI (test 3.36 cm2 code = 9742732086) AoV Mean PG (test code 13.27 mmHg = 6954223546) AoV Peak PG (test code 21.02 mmHg = 6751811214) AoV Vmax (test code = 2.29 m/s 4809605308) AoV VTI (test code = 0.49 m 2361168052) IVS,d (test code = 1.24 cm 0503064089) IVS/LVPW,2D (test code 0.84 = 8539636060) Left Atrium Dimension 4.73 cm Anterior (test code = 5125619291) LA Area d A4C (test 40.87 cm2 code = 7185644014) LV,d (test code = 5.59 cm 3879160443) LV EF,2D (test code = 65.59 % 0382167346) LV,s (test code = 3.92 cm 4186300710) LVOT area (test code = 5.81 cm2 4326949542) LVOT Diam,S (test code 2.72 cm = 2416172639) LVOT Vmax (test code = 1.35 m/s 8687931661) LVOT VTI (test code = 0.29 m 8523861638) LVPWD,d (test code = 1.47 cm [id number]) PV Pk Grad (test code 6.81 mmHg = 9605506470) PV VMAX (test code = 1.30 m/s 4637223528) MV E A ratio (test 0.72 code = 3016708589) E wave decelartion 381.26 msec time (test code = 1583444286) MV Peak A Jace (test 1.47 m/s code = 5670556565) MV valve area p 1/2 1.99 cm2 method (test code = 0084748769) MV Peak E Jace (test 1.05 m/s code = 2415792570) MV stenosis pressure 110.56 ms 1/2 time (test code = 7443309089) AV LVOT peak gradient 7.33 mmHg (test code = 9373496032) Ao Root Diameter (test 3.98 cm code = 7062899376) MV mean gradient (test 3.70 mmHg code = 8987075856) LV SYS VOL (test code 66.70 ml = 8726499385) LV ALBERTO VOL (test code 153.26 ml = 4838720214) LV SV Teich 2D (test 86.55 ml code = 6320679543) LV Vol s Teich PSAX 66.70 ml (test code = 0355847453) MR peak grad (test 9.61 mmHg code = 7831086559) MV Vmax (test code = 1.52 m 5526193642) MV VTI Tips (test code 0.33 m = 9239642608) AoV Vmn (test code = 1.70 3202744463) LV FS Teich 2D (test 29.93 code = 0446239687) MV AE ratio (test code 1.40 = 1890640205) LV FS Cube 2D (test 29.93 code = 5144378868) LVOT Vmn (test code = 0.97 9040100353) Aov area Vmn (test 3.24 cm2 code = 1022598908) LA Vol d MOD A4C (test 167.48 ml code = 6947827050) LVOT mean grad (test 4.20 mmHg code = 6400106398) MAX Pred HR (test code 137.42 = 6936067479) 85 of MPHR (test code 116.81 = 0642543420) Calc MPHR (test code = 137.42 bpm 1599023210) LV SV Cube 2D (test 114.79 ml code = 9962050325) LV vol d cube 2D (test 175.01 ml code = 1196552242) LV vol s cube 2D (test 60.22 ml code = 4546718772) MV Decel slope (test 2.76 m/s2 code = 8051108764) Pred Exer Dur R1 (test 5.24 code = 7037823984) Pred METS R1 (test 5.61 code = 6215839713) Velocity Ratio (V1/V2) 0.59 m/s (test code = 4689) EF (test code = 56.48 % 0934158963) E/A ratio (test code = 0.71 5455220037) DANIELLE (test code = DANIELLE) Normal left ventricular size and function with an EF~ 55% to 60%.Normal right ventricular size and function.Mild aortic stenosis with mild aortic regurgitation.The mitral valve is thickened with mild regurgitation. Structurally normal tricuspid valve and pulmonic valve. Left atria enlargement. Normal pericardium with no effusion.Grade 1 diastolic dysfunction. [place] RastafariVitamin B1 level, whole [id number] 08:39:40 Test Item Value Reference Range Interpretation Comments Vitamin B1 (test 141 nmol/L 70-180 INTERPRETIV E INFORMATION: code = 53318-2) Vitamin B1, Whole BloodThis assay measures the concentrati on of thiamine diphos phate (TDP), the prim ryley active form of vitamin B1. Approximately 9 0 percent of vitamin B1 p resent in whole blood is TDP. Thiamine and th iamine monophosphate, which comprise the re maining 10 percent, are no t measured.Test d eveloped and characteris tics determined by A [facility]. S ee Compliance Stat ement B: TIKI.VN/CSP erformed by NITHYA alejandra,[address] [facility], [place] [address] mlc .EVOFEM jose carlos, Derik Galeas do, MD, Lab. Director [place] MethodistType and [id number] 06:28:00 Test Item Value Reference Range Interpretation Comments ABO grouping (test code = 883-9) A Rh type (test code = 34280-9) POS Antibody screen (gel) (test code = NEG 890-4) [place] MethodistHepatitis B surface [id number] 12:13:12 Test Item Value Reference Range Interpretation Comments Hepatitis B surface Ab (test code = Reactive Non-reactive A 61263-8) Lab Interpretation (test code = Abnormal 69641-6) [place] MethodistHepatitis B surface [id number] 09:22:06 Test Item Value Reference Range Interpretation Comments Hepatitis B surface Ag (test Non-reactive Non-reactive code = 5195-3) [facility] Hemod[facility] [id number] 17:30:15Hm Interface, Radiology Results - 08/24/2019 5:33 PM CSTEXAMINATION: USPV HEMODIALYSIS ACCESSCLINICAL HISTORY: Poor clearance through AV fistulaCOMPARISON: None.IMPRESSION:1.Shrestha scale andcolor Doppler images of a left upper extremity radial artery to cephalic vein fistula were obtained.2.The radial artery proximal and distal to the venous anastomosis of the arteriovenous fistula is patent with normal flow velocities.3.The venous outflow of the fistula provided by the cephalic vein is patent.4.Elevated flow velocities are noted at the anastomosis of the arteriovenous fistula measuringup to 233 cm/s. These flow velocities abruptly decreases within the venous outflow ranging from 60.6cm/s to 24.3 cm/s. These findings suggest possible stenosis at the arteriovenous anastomosis.5.No focal fluid collections are seen within the superficial soft tissues.[facility]-[id number] MethodistHemoglobin A1c 2019-08-24 07:55:26 Test Item Value Reference Range Interpretation Comments Hemoglobin A1C (test 4.6 % 4-5.6 HbA1c c utoffs for code = 67535-6) diagnosing d iabetes:4.0% - 5.6% = normal 5.7% - 6.4% = increase d risk for diabetes (prediabetes)9> =6.5% = nqeattky8Hdoig for glycemic contro l (ADA 2016)< 7.0% Ta rget for non linette lts with diabetes. More or less stringent targe ts may be appropriate for individual saad ents. <7.5% [facility] Children and ad olescents with type 1 anton betes. [place] MethodistLipid [id number] 06:08:03 Test Item Value Reference Interpretation Comments Range Cholesterol (test 107 mg/dL 0-199 code = 2093-3) Triglycerides (test 74 mg/dL 0-149 code = 2571-8) HDL cholesterol 39 mg/dL 40-67856 L (test code = 2085-9) LDL cholesterol 55 mg/dL 0-99 (test code = 2089-1) Lipid panel See below Total Cholester ol (mg/dL) interpretation (test < 200 code = 85866-1) Desirable 200-239 Borderline -high >=240 Hi gh Triglyceri hermes (mg/dL) <150 No rmal 150-199 Borderline-high 200-499 High >=500 Very high HDL Choles terol (mg/dL) <40 Low (male) < 50 Low (female) L DL Cholesterol (mg /dL) <100 Optimal 1 00-129 Near or above o ptimal 130-159 Borderline-high 160-189 High >=190 Very high Risk Cat ergories that modify LDL goals.Risk Catergories LDL goal (mg/dL )CHD and CHD risk equiva lent <100 (10-year risk >20%)Multiple ( 2+) risk factors < 130 (10-year risk = <20%)0-1 risk factors <160 (<10-ye ar risk) Defining levels of lipids in metabolic syndromeTriglyc erides > =150 mg/dLHDL Choles terol Men <40 mg/dL Women <50 mg/dL Non-HDL cholest eden is a second target f or therapy in personswith high triglycerides ( >=200 mg/dL) Lab Interpretation Abnormal (test code = 67167-5) [place] [facility] pathogen [id number] 04:40:49Respiratory pathogen panelNegative for all pathogens tested:Negative for AdenovirusNegative for Coronavirus BEM4Lwhjyvop for Coronavirus ZG58Zdecmlik for Coronavirus 229ENegative for Coronavirus VD79Wtxeikxc for Human MetapneumovirusNegative for Rhinovirus/EnterovirusNegative for Influenza ANegative for Influenza A/D7Mwjgvhtd for Influenza A/F7Myfevkvp for Influenza A/H1-2009Negative for Influenza BNegative for Parainfluenza Virus 1Negative for Parainfluenza Virus 2Negative for Parainfluenza Virus 3Negative for Parainfluenza Virus 4Negative for Respiratory Syncytial VirusNegative for Bordetella pertussisNegative for Chlamydophila pneumoniaeNegative for Mycoplasma pneumoniaeThis real-time PCR assaydetects the presence of nucleic acids (RNA or DNA) for the respiratory pathogens listed. A result of "Not-detected" does not exclude the possibility of the presence of one or more pathogens at concentrations less than the detectable limits of the assay. Comment: Specimen InformationSpecimen Source: Na resSpecimen Site: Not specified [facility] Rastafari [id number] 01:01:34 Test Item Value Reference Range Interpretation Comments Troponin (test code = 0.060 ng/mL 0-0.04 H In pat ients 59785-9) suspected of butcher ving a myocardial infarction, jose alfredo ng with all other appropriate cli nical measures and ac tions including ECG a nd other diagnosti cs as appropriate, oh asure Ultra TnI at 0 hrs and at 3 hrs.Myocardial infarction VERY LIKELYThe 0 hr TnI level is > 0.10 ng/mL ----- ----- ----- --[place] cardial infarct ion LIKELYThe 0 hr TnI level is > 0.04 ng/mL and 3 hr level is increased or decreased by at least 0.020 ng/ mL ----- ----- ----- [place] cardi al infarction V MUSTAPHA UNLIKELYBoth th e 0 hr and 3 hr TnI levels <= 0.04 ng/mL(within no rmal limits) OR 0 hr is > 0.04 ng/mL and 3 hr is increased OR decreased by le ss than 0.020 ng/m L Lab Interpretation Abnormal (test code = 24940-2) [place] MethodistArterial blood [id number] 23:16:17 Test Item Value Reference Range Interpretation Comments pH, arterial (test code = 2744-1) 7.35 7.35-7.45 pCO2, arterial (test code = 55 35- 45 mmHg H 2019-03) pO2, arterial (test code = 214 80- 90 mmHg H 7) Bicarbonate, arterial (test code 29.5 mmol/L - H = 1960-4) Base excess, arterial (test code 4 -2 - 2 mEq-L H = 1925-7) O2 saturation, arterial (test 99 % 95-100 code = 2708-6) Lab Interpretation (test code = Abnormal 25341-6) [place] MethodistInfluenza antigen test, reflex negative to [id number] 21:59:15 Test Item Value Reference Range Interpretation Comments Influenza Negative for Specimen antigen (test Influenza A/B [facility] ecimen code = 18098-3) antigen. [facility] Site: Not speci alma rosa [facility] MethodistECG ED Preliminary Interpretation - Not an [id number] 11:15:09Lilliana Tomlinson MD 08/27/2019 2:32 AMECG ED Preliminary Interpretation - Not an OrderPerformed by: Lilliana Tomlinson MDAuthorized by: Lilliana Tomlinson MD ECG reviewed by ED Physician in the absence of a heating and air conditioning mechanic: yes Interpretation: Interpretation: non-specific Rate: ECG rate: 61 ECG rate assessment: normal Rhythm: Rhythm: sinus rhythm Ectopy: Ectopy: none QRS: QRS axis: Normal QRS intervals: WideConduction: Conduction: abnormal Abnormal conduction: completeRBBB and LAFB ST segments: ST segments: Non-specificT waves: T waves: non-specific Other findings: Other findings: LVHHouston Rastafari
--- OUTSIDE RECORDS SUMMARY | 2020-04-12 11:09 | XMS REPORT | Summary of Care ---
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) R91.8 (ICD-10-CM) - Lung mass [address] *no COVID-19 MD Sae Royal MD Treat Hematology and Procedures NE OFFICE OUTPATIENT NEW 45 MINUTES 7200 7200 Oncology [facility] 7th Floor, 10TH FLOOR, [address] [place] [phone] Phone: Fax: Encounter Details Date Type Department Care Team Description 04/01/2020 Office Visit [facility] Meagan Kelley, Initial Consultation [facility] [address] [facility] 7th Floor, [address] 7th Floor, [address] [place] [address] [place] [phone] Allergies Active Allergy Reactions Severity Noted Date Comments Adhesive Tape Rash Low 04/29/2018 BLISTERS BLISTERS Codeine Phosphate 05/02/2011 Gabapentin Hallucinations 04/01/2020 Opioid Analgesics Hallucinations 02/08/2020 Sevelamer Hydrochloride 02/08/2020 documented as of this encounter (statuses as of 04/01/2020) Medications Medication Sig Dispensed Refills Start End Date Status Date metoprolol (TOPROL Take 100 mg by 0 Active XL) 100 MG XL tablet mouth daily. warfarin (COUMADIN) Take 5 mg by 0 Active 5 MG tablet mouth daily. Multiple Take by 0 Active Vitamins-Minerals mouth. (ICAPS) CAPS Acetaminophen Take by 0 Active (TYLENOL 8 HOUR OR) mouth. atorvastatin TAKE 1 TABLET 0 Act phu (LIPITOR) 10 MG BY MOUTH EVERY 0 tablet DAY temazepam (RESTORIL) 0 Active 15 MG capsule 0 albuterol USE 1 VIAL IN 0 Active (PROVENTIL) (2.5 NEBULIZER FOUR 0 mg/3 mL) 0.083% TIMES DAILY nebulizer solution NEEDED B Jrczbvi-F-Hrywt Take 1 Tab by 0 11/11/19 Active Acid (JUSTICE-RENUKA RX) mouth. 0 21 1 MG TABS Calcium Acetate, Take 3 Caps by 0 Active Phos Binder, 667 MG mouth. 9 CAPS Febuxostat (ULORIC) Take by 0 Active 80 MG TABS mouth. tramadol (ULTRAM) 50 Take 50 mg by 0 Active MG tablet mouth every 6 hours as needed for Pain. Magnesium 250 MG Take 250 mg by 0 Active TABS mouth as needed. Polyethylene Glycol Take by mouth 0 Active 3350 (MIRALAX OR) as needed. Chlorphen-Pseudoephe Take by 0 Active d-APAP (CORICIDIN D mouth. OR) Pseudoephedrine-guai Take by 0 Active FENesin (MUCINEX D mouth. OR) Cholecalciferol Comments: | Filled Date: Fide varma 2018 10:40AM | Patient Notes: TAKE 1 CAP ONCE A WEEK FOR 3 MONTHS 0 04/01 Discontinued (VITAMIN D-3) 10 MCG Duration: 90 8 20 (*Therapy (400 UNIT) TABS comp leted) clonidine (CATAPRES) TAKE 1 TABLET 0 04/01 Discontinued 0.1 MG tablet EVERY 6 HOURS 0 20 (* Therapy NEEDED FOR comple kael) HTN. GIVE FOR SBP 180 DB 100 AND NOTIFY levofloxacin TAKE 1 TABLET 0 04/01/20 Dis continued (LEVAQUIN) 500 MG BY MOUTH EVERY 0 20 (*Therapy tablet DAY completed) documented as of this encounter (statuses as of 04/01/2020) Active Problems Problem Noted Date Renal mass, right 01/08/2016 Renal cell carcinoma (HCCode) 05/04/2011 Renal mass 11/20/2010 Renal insufficiency 11/20/2010 Diabetes mellitus (HCCode) 11/20/2010 documented as of this encounter (statuses as of 04/01/2020) Social History Tobacco Use Types Packs/Day Years Used Date Never Smoker Smokeless Tobacco: Never Used Alcohol Use Drinks/Week oz/Week Comments No Sex Assigned at Date Recorded Not on file COVID-19 Exposure Response Date Recorded In the last month, have you been in contact with No / Unsure 03/29/2020 11:05 AM CDT someone who was confirmed or suspected to have Coronavirus / COVID-19? documented as of this encounter Last Filed Vital Signs Vital Sign Reading Time Taken Comments Blood Pressure 145/67 04/01/2020 1:13 PM CDT Pulse 64 04/01/2020 1:13 PM CDT Temperature 36.7 C (98.1 F) 04/01/2020 1:13 PM CDT Respiratory Rate - - Oxygen Saturation - - Inhaled Oxygen Concentration - - Weight 111.6 kg (246 lb) 04/01/2020 1:13 PM CDT Height 188 cm (6' 2") 04/01/2020 1:13 PM CDT Body Mass Index 31.58 04/01/2020 1:13 PM CDT documented in this encounter Patient Instructions Patient InstructionsMariela Patricia CMA - 04/01/2020 1:20 PM CDT [facility] SECTION OF ONCOLOGY/HEMATOLOGY [phone] FAX [phone] Please note that all labs and or imaging results will be discussed at the next office visit unless told otherwise. if a problem occurs after hours please contact our office and have physician insulation worker furnace installer paged [phone] Patient Instructions: (to be completed before next visit) Will call next week by Saturday about f/up plan and return appt after reviewing CT scan Labs today Please don't hesitate to call if you have any questions or concerns before your appt. TELL US ABOUT YOUR EXPERIENCE You may receive an email or letter from [facility] via our partner, Glenn Rincon. This is a survey about your experience today. Your feedback is important to us so we can improve. If any question does not apply to your visit, please leave it blank. Our goal is to ensure you have an exceptional experience at [facility]. If for any reason you cannot rate your experience as very good, please let a member of our staff know so wecan make immediate improvements. Thanks Mariela Patricia CMA documented in this encounter Progress Notes Meagan Jensen MD - 04/01/2020 1:20 PM CDT Medical Oncology Initial Consult- History and Physical Referred By: Johan Alan MD [address] [facility] 10th [address], [place] [address] Reason for Consultation: Initial consultation for kidney cancer Oncology History of Present Illness: Sunny Small is a 85 y.o. man who is here with his in the office and daughter on the phone for an initial consultation for kidney cancer History is obtained from the patient and the available medical records and chart. Sunny Small has no acute complaints today, in wheelchair 2010 presented with bilateral renal masses 10/11/2010 CT A/P w/o contrast: IMPRESSION: 1. Multiple bilateral renal masses showing both the cystic and solid characteristics. The largest solid mass suspicious for renal neoplasm extends from the lower pole of the left kidney. However right kidney does have some indeterminate nodules including small nodule superior lateral upper pole with Hounsfield units similar to the unenhanced renal cortex. 2. Fatty infiltration of the liver with liver/spleen Hounsfield units 37/38. 3. Inferior vena cava filter 10/11/2010 CXR2v: no lung nodules/ masses 12/2010- open partial left nephrectomy ([facility]/ Link) Path / [id number]. Sample B. Left kidney, partial nephrectomy- RCC, clear cell x 3. 6.5 cm, FG2, invasion through capsule into fat; 1.9cm FG3, no capsular invasion; 0.25 cm, FG2, adjacent to the 6.5 cmtumor. -LVI, -PNI, margins clear. Left adrenal gland normal. No sarcomatoid features. Stage pT3a, path stage III. 04/2011 CT CAP w/o contrast IMPRESSION: 1. Since the prior study there appears to have been surgical intervention with surgical suture material and perinephric stranding as well as removal of a mass from the inferior pole of the left kidney. 2. No pulmonary hypertension with increased diameters of right and left main pulmonary arteries. 3. There is some fatty infiltration of the liver with liver/spleen Hounsfield units 39/39. 4. Focal superior endplate depression L5 appearing since prior study. 01/08/2018 renal US Right renal mass mid pole with vascularity : 5.5 X 4.1 X 5.3 cm Right renal mass lower pole with vascularity: 4.9 X 5.2 X 4.7 cm Unable to visualize lower pole of left kidney due to bowel gas Mass has increased in size since previous ultrasound with a second mass now seen. 07/01/2018 surgery- right nephrectomy ([facility]/ Link/ [id number]). Path: multifocal, pT2a G2, stage II right nephrectomy. 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 02/05/2019 CT AP w/ wo contrast: IMPRESSION: 1. Cholelithiasis. 2. New 2 cm enhancing nodule in the left kidney suspicious for neoplasm, MRI with contrast is recommended. 02/02/2020 CT AP w/ wo contrast Probable 2.2 cm metastatic lesion at lingula at the naterior left lung base and adjacent 4mm pulm nodule. New from 2018. Has exophytic masses in the anterior med left kidney and inferior left kidney, enlarged from 2018, show enhancement and suspicious for malignancy. No lymphadenopathy. Review of Systems: Review of Systems Constitutional: Positive for malaise/fatigue. Negative for chills and fever. HENT: Positive for hearing loss. Negative for congestion and sinus pain. Eyes: Negative. Respiratory: Positive for cough and shortness of breath. Negative for sputum production and wheezing. Gastrointestinal: Negative. Negative for abdominal pain, diarrhea, heartburn, nausea and vomiting. Genitourinary: Negative for dysuria and hematuria. Musculoskeletal: Negative. Skin: Negative for rash. Neurological: Negative. Endo/Heme/Allergies: Negative. Psychiatric/Behavioral: Negative. Past Medical History: Past Medical History: Diagnosis Date Cancer of kidney (HCCode) Dialysis patient (HCCode) 02/2018 PUD Colon polyp Cellulitis 2015 2018- started HD Past Surgical History: Past Surgical History: Procedure Laterality Date HX KIDNEY SURGERY hemorrhoid surgery 1992 1995 IVC filter after DVT following knee surgery 11/2007 left TKR 03/2008 R TKR 2010 L kidney open partial nephrectomy 2016 cataract surgery both eyes 2017 R total rad nephrectomy 2018 fistula left arm. 2020- fistula revision 2018 L femur fracture, s/p surgery. Social History: Social History Socioeconomic History Marital status: Spouse name: Not on file Number of children: Not on file Years of education: Not on file Highest education level: Not on file Occupational History Not on file Social Needs Financial resource strain: Not on file Food insecurity Worry: Not on file Inability: Not on file Transportation needs Medical: Not on file Non-medical: Not on file Tobacco Use Smoking status: Never Smoker Smokeless tobacco: Never Used Substance and Sexual Activity Alcohol use: No Drug use: No Sexual activity: Not on file Lifestyle Physical activity Days per week: Not on file Minutes per session: Not on file Stress: Not on file Relationships Social connections Talks on phone: Not on file Gets together: Not on file Attends religion service: Not on file Active member of club or organization: Not on file Attends meetings of clubs or organizations: Not on file Relationship status: Not on file Intimate partner violence Fear of current or ex partner: Not on file Emotionally abused: Not on file Physically abused: Not on file Forced sexual activity: Not on file Other Topics Concerns: Not on file Social History Narrative Not on file Family History: No family history on file. ? Bright's disease- father Sister- kidney failure, not kidney cancer Allergies: Allergies Allergen Reactions Codeine Phosphate Gabapentin Hallucinations Morphine And Related [Opioid Analgesics] Hallucinations Renvela [Sevelamer Hydrochloride] Adhesive Tape Rash BLISTERS BLISTERS Medications: Current Outpatient Medications Medication Sig Dispense Refill Acetaminophen (TYLENOL 8 HOUR OR) Take by mouth. albuterol (PROVENTIL) (2.5 mg/3 mL) 0.083% nebulizer solution USE 1 VIAL IN NEBULIZER FOUR TIMESDAILY NEEDED atorvastatin (LIPITOR) 10 MG tablet TAKE 1 TABLET BY MOUTH EVERY DAY B Zbymllm-X-Jhiyh Acid (JUSTICE-RENUAK RX) 1 MG TABS Take 1 Tab by mouth. Calcium Acetate, Phos Binder, 667 MG CAPS Take 3 Caps by mouth. Febuxostat (ULORIC) 80 MG TABS Take by mouth. metoprolol (TOPROL XL) 100 MG XL tablet Take 100 mg by mouth daily. Multiple Vitamins-Minerals (ICAPS) CAPS Take by mouth. temazepam (RESTORIL) 15 MG capsule warfarin (COUMADIN) 5 MG tablet Take 5 mg by mouth daily. No current facility-administered medications for this visit. Physical Exam: Vital Signs Height: 6' 2" (188 cm) Weight - Scale: 246 lb (111.6 kg) Temp: 98.1 F (36.7 C) Pulse: 64 Resting Heart Rate: 64 BP: 145/67 Patient Position: Sitting BP Location: right arm Oxygen Therapy O2 Sat: 95 % O2 Flow Rate: Room Air Height and Weight BSA (Calculated - sq m): 2.41 sq meters BMI (Calculated): 31.7 Predicted Body Weight: 181.22 Body surface area is 2.41 meters squared. Wt Readings from Last 3 Encounters: 04/01/20 246 lb (111.6 kg) 02/08/20 245 lb (111.1 kg) 02/09/19 266 lb (120.7 kg) Physical Exam Vitals signs reviewed. Constitutional: General: He is not in acute distress. Appearance: He is obese. He is not ill-appearing, toxic-appearing or diaphoretic. Comments: WM with hearing aids, in w/c, NAD AOX3 HENT: Head: Normocephalic. Nose: Nose normal. No congestion. Mouth/Throat: Mouth: Mucous membranes are moist. Eyes: General: No scleral icterus. Right eye: No discharge. Left eye: No discharge. Extraocular Movements: Extraocular movements intact. Conjunctiva/sclera: Conjunctivae normal. Neck: Musculoskeletal: Normal range of motion and neck supple. Cardiovascular: Rate and Rhythm: Normal rate and regular rhythm. Pulmonary: Effort: Pulmonary effort is normal. No respiratory distress. Breath sounds: Normal breath sounds. No wheezing, rhonchi or rales. Chest: Chest wall: No tenderness. Abdominal: General: There is no distension. Palpations: Abdomen is soft. There is no mass. Tenderness: There is no abdominal tenderness. There is no right CVA tenderness, left CVA tenderness, guarding or rebound. Hernia: No hernia is present. Musculoskeletal: Normal range of motion. General: No swelling or deformity. Comments: Left arm fistula Skin: General: Skin is warm. Coloration: Skin is not pale. Neurological: General: No focal deficit present. Mental Status: He is alert and oriented to person, place, and time. Mental status is at baseline. Psychiatric: Mood and Affect: Mood normal. Behavior: Behavior normal. Thought Content: Thought content normal. Labs: Labs reviewed. Results for orders placed or performed in visit on 05/27/18 CBC W/AUTO DIFF WITH PLATELETS Result Value WHITE BLOOD CELL COUNT 6.51 RED BLOOD CELL COUNT 3.63 (L) HEMOGLOBIN 11.3 (L) HEMATOCRIT 37.0 (L) MEAN CORPUSCULAR VOLUME 101.9 (H) MEAN CORPUSCULAR HEMOGLOBIN 31.1 MEAN CORPUSCULAR HEMOGLOBIN CONC 30.5 (L) RED CELL DISTRIBUTION WIDTH 51.4 MEAN PLATELET VOLUME 11.5 PLATELET COUNT 153 NUCLEATED RED BLOOD CELLS 0.00 NEUTROPHILS 57.6 LYMPHOCYTES 23.3 (L) MONOCYTES 13.1 (H) EOSINOPHILS ABSOLUTE COUNT 4.9 BASOPHILS % 0.8 IMMATURE GRANULOCYTES 0.3 Lab Results Component Value Date ALB 3.6 06/17/2018 Lab Results Component Value Date ALT 11 06/17/2018 AST 19 06/17/2018 ALKPHOS 43 06/17/2018 BILITOT 0.4 06/17/2018 Lab Results Component Value Date CREATININE 6.59 (H) 06/17/2018 BUN 68 (H) 06/17/2018 NA 139 06/17/2018 K 5.1 (H) 06/17/2018 CL 102 06/17/2018 CO2 21 (L) 06/17/2018 Images: reviewed Assessment: 85 y.o. WM with multiple medical problems, h/o bilateral renal masses 2010, s/p open left partial nephrectomy (nephron sparing surgery) 12/2010, path: multifocal clear cell RCC, 3 separate masses, pT3a,margins free. 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 Had small new lesion in the left kidney 01/2019 and elected to observe due to high surgical risk. CT 01/2020 shows new lung nodules x 4 at the left lung base concerningfor mets ECOG: PS 3, frail On HD, LUE fistula S/p bilateral TKR Plan: 1. RCC, 2010 left sided multifocal RCC clear cell, s/p nephron sparing surgery 12/2010 pT3a. 2018 right sided RCC, s/p 06/2018 surgery- pT2 clear cell and pT1 PRCC type 1. Now growing lung nodules -upload CT today and to decide if can get biopsy or not, the lung nodules are described to be close the lung base, which may be close to the diaphragm and challenging or impossible to biospy -if can biopsy will need to discuss risks of getting biopsy. If cannot biopsy, options include empiric treatment with systemic RCC based regimens vs close observation. If therapy considered, will need to weigh risks/benefits of TKI vs CPI vs combination TKI and CPI Will call next week after reviewing uloaded CT scans Labs today- CBC, CMP, Mg, TSH I spent 60 minutes in the care of this patient, 75% of the time was spent in face to face counselingof renal cell carcinoma Meagan Jensen MD [facility] [employer]vator Installer ApprenticeEnergy Auditordirector of strategy & mobile Department of Internal Medicine Section of Hematology/Oncology [phone] office documented in this encounter Plan of Treatment Name Type Priority Associated Diagnoses Date/Ti me TSH Lab Routine Renal cell carcinoma, unspec ified 04/01/2020 2:33 PM CDT laterality (HCCode) Health Maintenance Due Date Last Done Comments TETANUS SHOT (ADULT) 01/25/1950 ANNUAL DIABETIC FOOT EXAM 1955 ANNUAL DIABETIC RETINOPATHY SCREENING 1955 BMI FOLLOW UP PLAN 1955 ZOSTER VACCINE (1 of 2) 1987 FALL SCREEN 2002 MEDICARE AWV (Initial) 06/14/2014 FLU VACCINE > 6 MONTHS 03/19/2020 05/26/2018 PNEUMOVAX >=65 (PPSV23) Completed 05/26/2018 documented as of this encounter Procedures Procedure Name Priority Date/Time Associated Comments Diagnosis CBC W/AUTO DIFF WITH STAT 04/01/2020 2:33 Renal cell Res ults for this PLATELETS PM CDT carcinoma, procedure are i n unspecified the results laterality (HCCode) section. TSH Routine 04/01/2020 2:33 Renal cell PM CDT carcinoma, unspecified laterality (HCCode) MAGNESIUM STAT 04/01/2020 2:33 Renal cell Results for this PM CDT carcinoma, procedure are i n unspecified the results laterality (HCCode) section. COMPREHENSIVE STAT 04/01/2020 2:33 Renal cell Results fo r this METABOLIC PANEL PM CDT carcinoma, procedure ar e in unspecified the results laterality (HCCode) section. documented in this encounter Results MAGNESIUM (04/01/2020 2:33 PM CDT) Pathologist Sig nature MAGNESIUM 2.7 (H) 1.6 - 2.6 MG/DL CPL Comment: TESTING PERFORMED AT [facility] [employer] [address] [facility] [address] [place] [address] CLIA NO. [id number] Unless Otherwise Indicated, All Testing Pe rformed At: [facility], [address] [place] [address] Railroad Operator: Darline Duval CLIA Number [id number] [place]. [id number] Specimen Blood Performing Organization Address City/State/Zipcode Phone Number [place] [phone] COMPREHENSIVE METABOLIC PANEL (04/01/2020 2:33 PM CDT) GLUCOSE 100 (H) 70 - 99 MG/DL CPL BLOOD UREA NITROGEN 73 (H) 8 - 23 MG/DL CPL CREATININE 9.35 (H)Comment: 0.80 - 1.40 CPL MG/DL RESULTS RECHECKED AND VERIFIED EGFR AA 5 (L) >60 CPL ML/MIN/1.73 EGFR 5 (L) >60 CPL ML/MIN/1.73 BUN/CREAT RATIO 8 6 - 28 RATIO CPL SODIUM 143 133 - 146 CPL MEQ/L POTASSIUM 5.4 3.5 - 5.4 CPL MEQ/L CHLORIDE 102 100 - 112 CPL MEQ/L CO2 31 (H) 21 - 30 MEQ/L CPL CALCIUM 10.9 (H) 8.5 - 10.5 CPL MG/DL PROTEIN TOTAL 6.9 6.1 - 8.1 CPL G/DL ALBUMIN 4.0 3.4 - 4.8 CPL G/DL GLOBULINS, SERUM, 2.9 1.9 - 3.7 CPL TOTAL G/DL A/G RATIO 1.4 1.0 - 2.6 CPL RATIO BILIRUBIN TOTAL 0.4 <=1.2 MG/DL CPL ALKALINE 73 30 - 132 U/L CPL PHOSPHATASE AST (SGOT) 26 7 - 56 U/L CPL ALT (SGPT) 12 3 - 47 U/L CPL Comment: TESTING PERFORMED AT [facility] [employer]. [address] [address] CLIA NO. [id number] Unless Otherwise Indicated, All Testing Pe rformed At: [facility], [address] [place] [address] Railroad Operator: Darline Duval CLIA Number [id number] [place]. [id number] Specimen Blood Performing Organization Address City/State/Zipcode Phone Number [address] [address] CBC W/AUTO DIFF WITH PLATELETS (04/01/2020 2:33 PM CDT) WHITE BLOOD CELL 9.3 3.5 - 10.0 CPL COUNT K/UL RED BLOOD CELL COUNT 3.69 (L) 4.30 - 5.70 CPL M/UL HEMOGLOBIN 12.1 (L) 13.5 - 17.0 CPL G/DL HEMATOCRIT 39.0 38.0 - 50.0 % CPL MEAN CORPUSCULAR 105.7 (H) 80.0 - 99.0 CPL VOLUME fL MEAN CORPUSCULAR 32.8 25.0 - 34.0 CPL HEMOGLOBIN PG MEAN CORPUSCULAR 31.0 31.0 - 36.0 CPL HEMOGLOBIN CONC G/DL RED CELL 16.9 (H) 11.5 - 15.0 % CPL DISTRIBUTION WIDTH NEUTROPHILS % 65 40.0 - 75.0 % CPL LYMPHOCYTES % 14 (L) 20.0 - 45.0 % CPL MONOCYTES % 8 4.0 - 12.0 % CPL EOSINOPHILS % 13 (H) 0.0 - 7.0 % CPL BASOPHILS % 0 0.0 - 2.0 % CPL PLATELET COUNT 194 130 - 400 CPL Comment: K/UL TESTING PERFORMED AT [facility] [employer]. [address] [place] [address] CLIA NO. [id number] Unless Otherwise Indicated, All Testing Pe rformed At: [facility], [address] [place] [address] Railroad Operator: Darline Duval CLIA Number [id number] [place]. [id number] Specimen Blood Performing Organization Address City/State/Zipcode Phone Number [facility] [address] [place] [address] documented in this encounter Visit Diagnoses Diagnosis Renal cell carcinoma, unspecified latera lity (HCCode) - Primary documented in this encounter Insurance Payer Benefit Plan / Subscriber ID Effective Dates Phone Addre ss Type Group MEDICARE MEDICARE PART A [id number] 2019-Presen [address] Medicare & [place] [address] [employer] INDEMNITY/TRADIT [id number] 2013-Present [address] Indemnity IONAL CHOICE - [place], [place] [employer] [phone] documented as of this encounter
--- NOTE | 2020-04-12 12:30 | RAD REPORT ---
EXAM DESCRIPTION: RADChest Single View04/12/2020 12:23 pm CLINICAL HISTORY: Cough COMPARISON: February 2020 FINDINGS: No significant change in the left lung nodules. Area of subsegmental atelectasis is present within the right lung base Upper lobes are clear Heart is borderline enlarged. Old rib fractures
[2020-04-12] MEDS ORDERED: ALBUTEROL 2.5 MG/3 ML NEB SOL ONE ×2 (13:56→15:23)
[2020-04-12] MEDS ORDERED: IPRATROPIUM BROM 0.5MG/2.5ML ONE (13:56)
[2020-04-12 14:07] LABS: Absolute Lymphocytes (CBC) 1.4 K/uL (0.7-4.9); Basophils % 0.5 % (0-1.3); Hematocrit 39.9 % (39.6-49.0); Lymphocytes % 16.8 % (15.3-44.8); RBC Red Blood Cell Count 3.98 M/uL (4.33-5.43)
[2020-04-12 14:49] LABS: Potassium 5.7 mmol/L (3.5-5.1)
[2020-04-12] MEDS ORDERED: FOLIC ACID 1 MG TABLET ONE (15:14)
[2020-04-12] MEDS ORDERED: CYANOCOBALAMIN 1000MCG/ML INJ IM ONE (15:15)
[2020-04-12] MEDS ORDERED: dexAMETHasone 10 MG/ML VIAL ONE (16:09)
[2020-04-12] MEDS ORDERED: FENTANYL CITR 100 MCG/2 ML ONE (16:32)
--- NOTE | 2020-04-12 17:04 | RAD REPORT ---
EXAM DESCRIPTION: CT - Thorax Wo Con - 04/12/2020 4:30 pm CLINICAL HISTORY: lower SpO2 yest, cough and wheezing COMPARISON: Thorax W/ Con dated 02/18/2020; Thorax Wo Con dated 12/27/2016 TECHNIQUE: Axial 5 mm thick images of the chest were obtained without IV contrast. All CT scans are performed using dose optimization technique as appropriate and may include automated exposure control or mA/KV adjustment according to patient size. FINDINGS: No acute infiltrate in the lung parenchyma. No interstitial or alveolar edema pattern iden tifiable. In the lingula of the left upper lobe the patient has a lobulated mass. This is approximate ly 2.8 cm AP x 2.6 cm TR. This measures fractionally larger than February 17 imaging. In the medial left lower lobe a 15 mm AP x 15 mm TR rounded mass is present. There is an adjacent 7 x 7 mm nodule. No r ight lung field mass or nodule identified. The left lung field masses measure slightly larger than Ju ly. However, there was greater motion on the February examination. The differential measurements are very minimal and may be accounted for by volume averaging affects and grinder operator automatic technique. No pleural thickening or pleural effusion. No pneumothorax. No abnormal mediastinal or hilar masses or lymphadenopathy seen. No gross aortic or pulmonary artery finding suspected. Prominent bronchial calcifications are present. Dense arterial tree calcification s are present without displacement. No endobronchial lesion. No pericardial effusion. No chest wall mass or abnormal axillary lymphadenopathy. Disc and bone degenerative changes are present. Old partial compression fracture upper thoracic spine has not changed. IMPRESSION: No infiltrate, pulmonary edema or other acute CT chest finding. Left lung field pulmonary nodules measure slightly larger than the February 2 imaging. This could potenti ally be true growth and needs ongoing monitoring. Volume averaging affects and differences in operat or technique could also account for the very slight interval change.
--- NOTE | 2020-04-12 17:07 | RAD REPORT ---
EXAM DESCRIPTION: Shoulder Right 2 View - 04/12/2020 4:43 pm CLINICAL HISTORY: SMASH INJURY COMPARISON: Thorax W/ Con dated 02/18/2020 TECHNIQUE: Internal and external rotation views of the right shoulder were obtained. FINDINGS: No dislocation of the proximal humerus. Acute fracture is not seen. Patient has advanced d egenerative change to the humeral head. Remodeling of the proximal humeral head is from old fracture. This matches the CT chest study. Glenohumeral joint space narrowing is present. Prominent degenerati ve changes present of the bony glenoid. AC joint degenerative changes are present compared early much less severe. Acromial humeral joint spa ce is preserved. No suspicious soft tissue calcifications. No pathologic or destructive bone process. IMPRESSION: Advanced right shoulder joint degenerative change similar to February imaging. No acute find ings seen.
--- NOTE | 2020-04-12 17:24 | ER ---
Nurse's Notes [facility] Name: Sunny Small Age: 85 yrs Sex: Male : 1935 Arrival Date: 04/12/2020 Time: 11:05 Bed 19 Private MD: Diagnosis: Hypoxemia;Dyspnea, unspecified Presentation: 04/12 11:07 Chief complaint: Patient states: SOB, cough, wheezing for 1 week. Saw PCP, had blood ll1 drawn. Was asked to come to ED for CHF work-up. No fever. No N/V/D. Good appetite. Coronavirus screen: Client denies travel out of the [place] in the last 14 days. cough unrelated to allergies, difficulty breathing, shortness of breath, Client presents with at least one sign or symptom that may indicate coronavirus-19. Standard/surgical mask placed on the client. Ebola Screen: Patient denies travel to an Ebola-affected area in the 21 days before illness onset. Initial Sepsis Screen: Does the patient meet any 2 criteria? No. Patient's initial sepsis screen is negative. Risk Assessment: Do you want to hurt yourself or someone else? Patient reports no desire to harm self or others. Onset of symptoms was April 05, 2020. 11:07 Acuity: JEAN 3 ll1 11:07 Method Of Arrival: EMS ll1 11:10 Chief complaint: EMS states: Oxygen sat. 94% RA, other vitals normal. O2 2L NC raises ll1 O2 to 100%. 12:16 Initial Sepsis Screen: Does the patient have a suspected source of infection? No. sv Patient's initial sepsis screen is negative. Historical: - Allergies: 11:10 Codeine; ll1 11:10 Morphine; ll1 - PMHx: 11:10 ESRD; hemodialysis; Gout; DVT; Hypertension; kidney cancer; PE; CHF; ll1 - Immunization history:: Pneumococcal vaccine is up to date, Flu vaccine is up to date. - Social history:: Smoking status: Patient denies any tobacco usage or history of. Patient/guardian denies using alcohol, street drugs. Screenin:25 Abuse screen: Denies threats or abuse. Denies injuries from another. Nutritional sv screening: No deficits noted. Tuberculosis screening: No symptoms or risk factors identified. Fall Risk None identified. Assessment: 13:00 General: Appears in no apparent distress. comfortable, well developed, Behavior is sv calm, cooperative, appropriate for age. Pain: Denies pain. Neuro: Level of Consciousness is awake, alert, obeys commands, Oriented to person, place, time, situation, Moves all extremities. Full function Speech is normal. Respiratory: Reports shortness of breath at rest on exertion cough that is non-productive, wheezing Airway is patent Respiratory effort is even, unlabored, Respiratory pattern is regular, symmetrical. Derm: Skin is intact, Skin is pink, warm \T\ dry. 13:53 Reassessment: Patient appears in no apparent distress at this time. No changes from sv previously documented assessment. Patient and/or family updated on plan of care and expected duration. Pain level reassessed. Patient is alert, oriented x 3, equal unlabored respirations, skin warm/dry/pink. Respiratory: Breath sounds with wheezes bilaterally. 15:39 Reassessment: Patient appears in no apparent distress at this time. No changes from sv previously documented assessment. Patient and/or family updated on plan of care and expected duration. Pain level reassessed. Patient is alert, oriented x 3, equal unlabored respirations, skin warm/dry/pink. 16:16 Reassessment: Patient appears in no apparent distress at this time. No changes from sv previously documented assessment. Patient and/or family updated on plan of care and expected duration. Pain level reassessed. Patient is alert, oriented x 3, equal unlabored respirations, skin warm/dry/pink. 17:00 Reassessment: Patient appears in no apparent distress at this time. Patient and/or sv family updated on plan of care and expected duration. Pain level reassessed. Patient is alert, oriented x 3, equal unlabored respirations, skin warm/dry/pink. 18:12 Reassessment: Pt off of O2, sat on the side of the bed and ambulated in the room and sv around in the hallway. O2 sat went down to 77%, pt able to recover and O2 sat up to about 91%. Pt placed back on O2 \T\ 2L per NC. 19:15 Reassessment: Pt with DC order awaiting EMS for transport to home. Charge Nurse aware, wh ETA per Charge is 2.5 hours. Pt was notified of POC. 20:00 Reassessment: Pt sleeping well no signs of distress noted. wh 21:10 Reassessment: Pt sleeping well no signs of distress noted. Still awaiting EMS wh transport, Ff up with Charge Nurse. 22:20 Reassessment: Per [facility], considers it not safe to transport patient home due lp1 to drop in O2 while coughing; EMS crew speaking with their wastewater supervisor for consideration of transfer. 22:25 Reassessment: Spoke with [facility] wastewater supervisor explained POC for Pt. Notified Charge Nurse what transpired. 23:00 Reassessment: Per EMS their Senior Construction Estimator spoke with our [employer] Farmworker and decided that they wont be able to transport Pt. [employer] Olimpia said we will keep Pt for now and reassess in the morning while awaiting for home O2 to be delivered. Pt was notified of POC and transferred to a hospital bed. 23:30 Reassessment: Spoke with Bria, patient's daughter, updated on plan of care for patient lp1 to remain in ER due to O2 dependency; Bria stated concern for patient because of scheduled dialysis at home at 1200 tomorrow; Will update next shift to determine plan for patient to receive scheduled dialysis and contact information for Home Health and O2 delivery; Bria- [phone]; Nohelia (patient's ): [phone], Home: [phone]. 04/13 00:00 Reassessment: Pt was given snack eating at the moment, watching Tv no signs of distress wh noted. 01:30 Reassessment: Pt sleeping well no signs of distress noted. 03:00 Reassessment: Pt sleeping well no signs of distress noted. 04:30 Reassessment: Pt sleeping well no signs of distress noted. 05:50 Reassessment: Pt sleeping well no signs of distress noted. 05:58 Reassessment: Assumed care from CALISTA Chi. Patient sitting up on side of bed. SpO2 93% vc on 2L nasal canula. Will continue to monitor oxygen. 06:19 Reassessment: Patient appears in no apparent distress at this time. Patient resting vc with eyes closed, Chest rising and falling equally. 08:36 Reassessment: No changes from previously documented assessment. Patient and/or family jr10 updated on plan of care and expected duration. Pain level reassessed. Patient is alert, oriented x 3, equal unlabored respirations, skin warm/dry/pink. 09:35 Reassessment: pt resting comfortably, appears to be sleeping, eyes closed, equal rise jr10 of fall of chest noted with unlabored breathing; bed remains in low locked position, side rails raised x2, call light within reach. VSS. Will continue to monitor. 10:55 Reassessment: breakfast tray provided to patient. jr10 Vital Signs: 04/12 11:07 BP 153 / 57; Pulse 79; Resp 20; Temp 97.8; Pulse Ox 100% ; Pain 0/10; ll1 12:41 BP 145 / 60; Pulse 65; Resp 15; Pulse Ox 100% on R/A; sv 13:53 BP 167 / 73; Pulse 68; Resp 15; Pulse Ox 100% on Nebulizer Mask; sv 14:54 BP 162 / 73; Pulse 80; Resp 16; Pulse Ox 100% ; sv 15:20 Pulse Ox 100% on 2 lpm NC; sv 15:46 BP 151 / 73; Pulse 79; Resp 15; Pulse Ox 100% on Nebulizer Mask; sv 17:00 BP 153 / 67; Pulse 90; Resp 24; Pulse Ox 100% on 2 lpm NC; sv 17:29 Pulse Ox 84% on R/A; sv 18:00 BP 148 / 66; Pulse 90; Resp 17; Pulse Ox 98% ; sv 18:30 BP 137 / 84; Pulse 104; Resp 22; Pulse Ox 95% on 2 lpm NC; sv 19:00 BP 155 / 73; Pulse 98; Resp 17; Pulse Ox 97% on 2 lpm NC; wh 20:00 BP 139 / 72; Pulse 95; Resp 20; Pulse Ox 100% on 2 lpm NC; wh 21:00 BP 130 / 66; Pulse 86; Resp 18; Pulse Ox 100% on 2 lpm NC; wh 22:00 BP 167 / 79; Pulse 86; Resp 18; Pulse Ox 100% on 2 lpm NC; wh 04/13 00:00 BP 162 / 73; Pulse 93; Resp 18; Pulse Ox 100% on 2 lpm NC; wh 01:30 BP 156 / 72; Pulse 91; Resp 16; Pulse Ox 97% on 2 lpm NC; wh 03:00 BP 154 / 66; Pulse 84; Resp 16; Pulse Ox 93% on 2 lpm NC; wh 04:30 BP 141 / 60; Pulse 72; Resp 16; Pulse Ox 93% on 2 lpm NC; wh 05:45 BP 143 / 56; Pulse 70; Resp 18; Pulse Ox 99% on 2 lpm NC; wh 06:00 BP 144 / 72; Pulse 70; Resp 18; Pulse Ox 99% on 2 lpm NC; vc 06:30 BP 152 / 62; Pulse 71; Resp 17; Pulse Ox 99% on 2 lpm NC; vc 08:35 BP 113 / 51; Pulse 67; Resp 20; Pulse Ox 100% on 2 lpm NC; jr10 09:36 Pulse 66; Resp 20; Pulse Ox 100% on 2 lpm NC; jr10 12:43 BP 121 / 96; Pulse 72; Resp 20; Pulse Ox 100% on 2 lpm NC; jr10 16:11 BP 162 / 99; Pulse 81; Resp 20; Temp 98.0; Pulse Ox 98% on 2 lpm NC; Pain 0/10; jr10 04/12 17:29 Pt just had a coughing spell, O2 sat maintained between 84-85% on RA. About 5 mins sv after this O2 sat is about 88% on RA. Informed Laura SENIOR LABEL SPECIALIST. Stanley Coma Score: 13:49 Eye Response: spontaneous(4). Verbal Response: oriented(5). Motor Response: obeys snw commands(6). Total: 15. ED Course: 11:05 Patient arrived in ED. ds1 11:09 Triage completed. ll1 11:10 Arm band placed on Patient placed in an exam room, on a stretcher. ll1 11:18 [facility] Ross [facility]-C [facility]. snw 11:18 Sebastian Langford MD is Attending Physician. snw 11:25 Kari Guan, CALISTA is Primary Nurse. sv 11:25 Patient has correct armband on for positive identification. Bed in low position. Call sv light in reach. Pulse ox on. NIBP on. 12:16 EKG done, by ED staff, reviewed by Laura MATHEWS. sv 12:23 Chest Single View XRAY In Process Unspecified. EDMS 13:37 Pillow given. Verbal reassurance given. jp3 13:37 Initial lab(s) drawn, by me, sent to lab. Inserted saline lock: 20 gauge in right jp3 wrist, using aseptic technique. Blood collected. 16:[address] Scan, Awaiting for x-ray. sv 16:[address] via stretcher. sv 16:31 CT Chest Wo Con In Process Unspecified. EDMS 16:42 Shoulder Right (2 View) XRAY In Process Unspecified. EDMS 16:54 Awaiting radiology results. sv 19:12 Report given to Arti GRIGSBY. sv 04/13 07:09 Primary Nurse role handed off by Kari Guan RN bd 12:21 Attending Physician role handed off by Sebastian Langford MD rn 12:21 Ace Angeles MD is Attending Physician. rn 12:22 Keyon Love MD is Hospitalizing Provider. rn 16:12 No provider procedures requiring assistance completed. Patient admitted, IV remains in jr10 place. intact, No redness/swelling at site. Administered Medications: 04/12 13:53 Drug: Albuterol - atroVENT (3:1) (2.5 mg - 0.5 mg) 3 ml Route: Nebulizer; sv 14:30 Follow up: Response: No adverse reaction sv 15:39 Drug: foLIC Acid 1 mg Route: PO; sv 15:52 Follow up: Response: No adverse reaction sv 15:39 Drug: Vitamin B-12 1000 mcg Route: IM; Site: right deltoid; sv 15:52 Follow up: Response: No adverse reaction sv 15:39 Drug: Albuterol 2.5 mg Route: Inhalation; sv 15:39 Drug: Albuterol 2.5 mg Route: Inhalation; sv 15:39 Drug: Albuterol 2.5 mg Route: Inhalation; sv 16:16 Drug: Decadron - Dexamethasone 10 mg Route: IVP; Site: right wrist; sv 16:24 Follow up: Response: No adverse reaction sv 16:22 Drug: fentaNYL (PF) 25 mcg Route: IVP; Site: right wrist; sv 17:26 Follow up: Response: No adverse reaction; No change in condition; Pain is unchanged, sv physician notified; RASS: Restless (+1) 17:26 Drug: Ketorolac 15 mg Route: IVP; Site: right hand; sv 17:33 Follow up: Response: No adverse reaction sv Outcome: 17:24 Discharge ordered by . snw 04/13 12:23 Decision to Hospitalize by Provider. rn 16:12 Admitted to Med/surg accompanied by tech, via stretcher, room 210, with oxygen, with jr10 chart, Report called to CALISTA Hinkle 16:12 Condition: stable 16:12 Instructed on the need for admit. 16:33 Patient left the ED. jr10 Signatures: Dispatcher [employer] EDMS Sunshine Berger Stephanie, RN RN sv Ross, Laura, COMPANION-C COMPANION-Csnw Micaela Mello ds1 Ace Angeles MD MD rn Pena, Laura RN RN lp1 Arti Montejo Jacob jp3 Cha Escobar RN RN Jean Meeks RN RN ll1 Roslyn Lagos RN RN jr10 Corrections: (The following items were deleted from the chart) 04/12 16:07 12:41 BP 145 / 60; Pulse 65bpm; Resp 15bpm; Pulse Ox 100% RA; sv sv 18:29 11:07 Method Of Arrival: Ambulatory ll1 ll1 23:35 23:00 Reassessment: Per EMS their Senior Construction Estimator spoke with our [employer] Farmworker and decided that they wont be able to transport Pt. [employer] Farmworker Olimpia said we will keep Pt for now and reassess in the morning while awaiting for home O2 to be delivered 23:38 23:00 Reassessment: Per EMS their Senior Construction Estimator spoke with our [employer] Farmworker and decided that they wont be able to transport Pt. [employer] Farmworker Olimpia said we will keep Pt for now and reassess in the morning while awaiting for home O2 to be delivered. Pt was notified of POC 04/13 06:40 06:20 BP 144 / 72; Pulse 70bpm; Resp 18bpm; Pulse Ox 99% 2 lpm Nasal Cannula; vc vc
--- NOTE | 2020-04-12 17:24 | EDPHYS ---
Physician Documentation [facility] Name: Sunny Small Age: 85 yrs Sex: Male : 1935 Arrival Date: 04/12/2020 Time: 11:05 Bed 19 Private MD: ED Physician Ace Angeles HPI: 04/12 13:51 This 85 yrs old Male presents to ER via Ambulatory with complaints of snw Shortness Of Breath, Cough. 13:51 The patient has shortness of breath at rest. Onset: The symptoms/episode began/occurred snw 1 month(s) ago, and became persistent. Duration: The symptoms are continuous. Associated signs and symptoms: Pertinent positives: This patient does not have any pertinent positive signs or symptoms associated with shortness of breath. Pertinent negatives: chest pain. Severity of symptoms: At their worst the symptoms were mild. It is unknown whether or not the patient has had similar symptoms in the past. pt states he had dialysis yesterday. Pt states Dr. Love wanted to check on his heart function. Historical: - Allergies: 11:10 Codeine; ll1 11:10 Morphine; ll1 - PMHx: 11:10 ESRD; hemodialysis; Gout; DVT; Hypertension; kidney cancer; PE; CHF; ll1 - Immunization history:: Pneumococcal vaccine is up to date, Flu vaccine is up to date. - Social history:: Smoking status: Patient denies any tobacco usage or history of. Patient/guardian denies using alcohol, street drugs. ROS: 13:50 Constitutional: Negative for fever, chills, and weight loss, Eyes: Negative for injury, snw pain, redness, and discharge, ENT: Negative for injury, pain, and discharge, Neck: Negative for injury, pain, and swelling, Cardiovascular: Negative for chest pain, palpitations, and edema, Abdomen/GI: Negative for abdominal pain, nausea, vomiting, diarrhea, and constipation, Back: Negative for injury and pain, : Negative for injury, bleeding, discharge, and swelling, MS/Extremity: Negative for injury and deformity, Skin: Negative for injury, rash, and discoloration, Neuro: Negative for headache, weakness, numbness, tingling, and seizure, Psych: Negative for depression, anxiety, suicide ideation, homicidal ideation, and hallucinations. 13:50 Respiratory: Positive for wheezing, expiratory. Exam: 13:49 Constitutional: This is a well developed, well nourished patient who is awake, alert, snw and in no acute distress. Head/Face: Normocephalic, atraumatic. Eyes: Pupils equal round and reactive to light, extra-ocular motions intact. Lids and lashes normal. Conjunctiva and sclera are non-icteric and not injected. Cornea within normal limits. Periorbital areas with no swelling, redness, or edema. ENT: Nares patent. No nasal discharge, no septal abnormalities noted. Tympanic membranes are normal and external auditory canals are clear. Oropharynx with no redness, swelling, or masses, exudates, or evidence of obstruction, uvula midline. Mucous membranes moist. Neck: Trachea midline, no thyromegaly or masses palpated, and no cervical lymphadenopathy. Supple, full range of motion without nuchal rigidity, or vertebral point tenderness. No Meningismus. Chest/axilla: Normal chest wall appearance and motion. Nontender with no deformity. No lesions are appreciated. Cardiovascular: Regular rate and rhythm with a normal S1 and S2. No gallops, murmurs, or rubs. Normal PMI, no JVD. No pulse deficits. Abdomen/GI: Soft, non-tender, with normal bowel sounds. No distension or tympany. No guarding or rebound. No evidence of tenderness throughout. Back: No spinal tenderness. No costovertebral tenderness. Full range of motion. Neuro: Awake and alert, GCS 15, oriented to person, place, time, and situation. Cranial nerves II-XII grossly intact. Motor strength 5/5 in all extremities. Sensory grossly intact. Cerebellar exam normal. Normal gait. 13:49 Respiratory: the patient does not display signs of respiratory distress, Respirations: normal, Breath sounds: wheezing: expiratory that is moderate, that is severe, is heard diffusely. 13:49 Musculoskeletal/extremity: ROM: no acute changes, PVD. Sensation intact. Vital Signs: 11:07 BP 153 / 57; Pulse 79; Resp 20; Temp 97.8; Pulse Ox 100% ; Pain 0/10; ll1 12:41 BP 145 / 60; Pulse 65; Resp 15; Pulse Ox 100% on R/A; sv 13:53 BP 167 / 73; Pulse 68; Resp 15; Pulse Ox 100% on Nebulizer Mask; sv 14:54 BP 162 / 73; Pulse 80; Resp 16; Pulse Ox 100% ; sv 15:20 Pulse Ox 100% on 2 lpm NC; sv 15:46 BP 151 / 73; Pulse 79; Resp 15; Pulse Ox 100% on Nebulizer Mask; sv 17:00 BP 153 / 67; Pulse 90; Resp 24; Pulse Ox 100% on 2 lpm NC; sv 17:29 Pulse Ox 84% on R/A; sv 18:00 BP 148 / 66; Pulse 90; Resp 17; Pulse Ox 98% ; sv 18:30 BP 137 / 84; Pulse 104; Resp 22; Pulse Ox 95% on 2 lpm NC; sv 19:00 BP 155 / 73; Pulse 98; Resp 17; Pulse Ox 97% on 2 lpm NC; wh 20:00 BP 139 / 72; Pulse 95; Resp 20; Pulse Ox 100% on 2 lpm NC; wh 21:00 BP 130 / 66; Pulse 86; Resp 18; Pulse Ox 100% on 2 lpm NC; wh 22:00 BP 167 / 79; Pulse 86; Resp 18; Pulse Ox 100% on 2 lpm NC; wh 08 00:00 BP 162 / 73; Pulse 93; Resp 18; Pulse Ox 100% on 2 lpm NC; wh 01:30 BP 156 / 72; Pulse 91; Resp 16; Pulse Ox 97% on 2 lpm NC; wh 03:00 BP 154 / 66; Pulse 84; Resp 16; Pulse Ox 93% on 2 lpm NC; wh 04:30 BP 141 / 60; Pulse 72; Resp 16; Pulse Ox 93% on 2 lpm NC; wh 05:45 BP 143 / 56; Pulse 70; Resp 18; Pulse Ox 99% on 2 lpm NC; wh 06:00 BP 144 / 72; Pulse 70; Resp 18; Pulse Ox 99% on 2 lpm NC; vc 06:30 BP 152 / 62; Pulse 71; Resp 17; Pulse Ox 99% on 2 lpm NC; vc 08:35 BP 113 / 51; Pulse 67; Resp 20; Pulse Ox 100% on 2 lpm NC; jr10 09:36 Pulse 66; Resp 20; Pulse Ox 100% on 2 lpm NC; jr10 12:43 BP 121 / 96; Pulse 72; Resp 20; Pulse Ox 100% on 2 lpm NC; jr10 16:11 BP 162 / 99; Pulse 81; Resp 20; Temp 98.0; Pulse Ox 98% on 2 lpm NC; Pain 0/10; jr10 04/12 17:29 Pt just had a coughing spell, O2 sat maintained between 84-85% on RA. About 5 mins sv after this O2 sat is about 88% on RA. 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 Christina Coma Score: 13:49 Eye Response: spontaneous(4). Verbal Response: oriented(5). Motor Response: obeys snw commands(6). Total: 15. MDM: 11:27 Patient medically screened. [facility] 16:30 Data reviewed: vital signs, nurses notes. Data interpreted: Pulse oximetry: on room air snw is 100 %. Interpretation: normal. Counseling: I had a detailed discussion with the patient and/or guardian regarding: the historical points, exam findings, and any diagnostic results supporting the discharge/admit diagnosis, the presence of at least one elevated blood pressure reading (>120/80) during this emergency department visit, lab results, radiology results, the need for outpatient follow up, for definitive care. Physician consultation: Keyon Love MD was called at 16:30, was contacted at 16:30, regarding consult, patient's condition, outpatient follow-up, would like further tests performed, CT scan. 17:01 ED course: Mrs. Nohelia Small . snw 18:12 ED course: Pt becomes hypoxic on exertion to 77%. When seated post exertion pt quickly snw recovers to 91%, Pt moved back onto stretcher and O2 via N/C placed at 2L and SpO2 now remains 98%. Dr. Love notified. Will arrange home O2 per home health. 04/13 12:21 ED course: After prolonged period waiting in ER, unable to arrange home oxygen as rn planned, Benoit Love is now to admit patient. . 04/12 13:45 Order name: BNP; Complete Time: 14:55 bd 04/12 13:46 Order name: Basic Metabolic Panel; Complete Time: 14:55 bd 04/12 13:46 Order name: CBC with Diff; Complete Time: 14:41 bd 04/12 11:31 Order name: Chest Single View XRAY; Complete Time: 12:58 snw 04/12 15:43 Order name: Shoulder Right (2 View) XRAY; Complete Time: 17:09 snw 04/12 16:10 Order name: CT Chest Wo Con; Complete Time: 17:09 snw 04/13 13:10 Order name: COVID-19 aa5 04/13 15:06 Order name: SARS-COV-2 RT PCR; Complete Time: 15:15 EDMS 04/12 11:31 Order name: EKG; Complete Time: 11:31 snw 04/12 11:31 Order name: EKG - Nurse/Tech; Complete Time: 12:16 snw 04/13 10:03 Order name: Diet 2 Gm Sodium; Complete Time: 10:04 aa5 EC/25 12:15 Rate is 68 beats/min. Rhythm is regular. QRS Hanna is Normal. KS interval is prolonged. snw QRS interval is prolonged. QT interval is prolonged. Clinical impression: NSR w/ Non-specific ST/T Changes and 1st degree heart block. Administered Medications: 13:53 Drug: Albuterol - atroVENT (3:1) (2.5 mg - 0.5 mg) 3 ml Route: Nebulizer; sv 14:30 Follow up: Response: No adverse reaction sv 15:39 Drug: foLIC Acid 1 mg Route: PO; sv 15:52 Follow up: Response: No adverse reaction sv 15:39 Drug: Vitamin B-12 1000 mcg Route: IM; Site: right deltoid; sv 15:52 Follow up: Response: No adverse reaction sv 15:39 Drug: Albuterol 2.5 mg Route: Inhalation; sv 15:39 Drug: Albuterol 2.5 mg Route: Inhalation; sv 15:39 Drug: Albuterol 2.5 mg Route: Inhalation; sv 16:16 Drug: Decadron - Dexamethasone 10 mg Route: IVP; Site: right wrist; sv 16:24 Follow up: Response: No adverse reaction sv 16:22 Drug: fentaNYL (PF) 25 mcg Route: IVP; Site: right wrist; sv 17:26 Follow up: Response: No adverse reaction; No change in condition; Pain is unchanged, sv physician notified; RASS: Restless (+1) 17:26 Drug: Ketorolac 15 mg Route: IVP; Site: right hand; sv 17:33 Follow up: Response: No adverse reaction sv Disposition: 04/13 16:51 Co-signature as Attending Physician, Ace Angeles MD. rn Disposition: 04/13/20 12:23 Hospitalization ordered by Keyon Love for Observation. Preliminary diagnosis are Hypoxemia, Dyspnea, unspecified. - Bed requested for Telemetry/MedSurg (observation). - Status is Observation. jr10 - Condition is Stable. - Problem is new. - Symptoms have improved. Signatures: Dispatcher [employer] EDNC Sunshine Berger Kimberly RN Kari Renee RN RN sv Anderson, Corey, MD MD cha Waters, Shelly, WOUND/OSTOMY CLINICAL NURSE SPECIALIST-C WOUND/OSTOMY CLINICAL NURSE SPECIALIST-Csnw Ace Angeles MD MD rn Lewis, Jean, RN RN ll1 Roslyn Lagos RN RN jr10 Corrections: (The following items were deleted from the chart) 04/12 13:18 13:13 CBC+H.LAB.BRZ ordered. EDNC EDNC 13:18 13:13 BASIC METABOLIC PANEL+C.LAB.BRZ ordered. EDNC EDNC 13:18 13:13 PROBNP+C.LAB.BRZ ordered. EDNC EDNC 04/13 12:22 04/12 17:24 04/12/2020 17:24 Discharged to Home. Impression: Wheezing; Fall on same rn level, unspecified - last week; Pain in right shoulder. Condition is Stable. Forms are Medication Reconciliation Form, Thank You Letter, Antibiotic Education, Prescription Opioid Use. Follow up: Emergency Department; When: As needed; Reason: Worsening of condition. Follow up: Private Physician; When: 2 - 3 days; Reason: Recheck today's complaints, Continuance of care, Re-evaluation by your physician. [facility] 04/13 12:42 12:23 Hospitalization Ordered by Keyon Love MD for Observation. Preliminary kl diagnosis is Hypoxemia; Dyspnea, unspecified. Bed requested for Telemetry/MedSurg (observation). Status is Observation. Condition is Stable. Problem is new. Symptoms have improved. rn 13:22 12:42 04/13/2020 12:23 Hospitalization Ordered by Keyon Love MD for Observation. kl Preliminary diagnosis is Hypoxemia; Dyspnea, unspecified. Bed requested for Telemetry/MedSurg (observation). Status is Observation. Condition is Stable. Problem is new. Symptoms have improved. kl 15:44 13:22 04/13/2020 12:23 Hospitalization Ordered by Keyon Love MD for Observation. bd Preliminary diagnosis is Hypoxemia; Dyspnea, unspecified. Bed requested for Telemetry/MedSurg (observation). Status is Observation. Condition is Stable. Problem is new. Symptoms have improved. kl 16:33 15:44 04/13/2020 12:23 Hospitalization Ordered by Keyon Love MD for Observation. jr10 Preliminary diagnosis is Hypoxemia; Dyspnea, unspecified. Bed requested for Telemetry/MedSurg (observation). Status is Observation. Condition is Stable. Problem is new. Symptoms have improved. bd
[2020-04-12] MEDS ORDERED: KETOROLAC 30 MG/ML INJ ONE (17:34)
--- NOTE | 2020-04-13 07:34 | EKG ---
Test Date: 2020-04-12 Test Time: 12:14:16 Sales Representative Printing Paper: RICKY MEASUREMENT RESULTS: Intervals: Rate: 68 CT: 258 QRSD: 176 QT: 452 QTc: 480 [place]: P: 53 CT: 258 QRS: -49 T: 19 INTERPRETIVE STATEMENTS: Sinus rhythm with 1st degree AV block Right bundle branch block Left anterior fascicular block Bifascicular block Voltage criteria for left ventricular hypertrophy Abnormal ECG Compared to ECG 08/03/2019 23:19:26 Left ventricular hypertrophy now present Bifascicular block still present Electronically Signed On 04-13-20 07:32:36 CDT by Malik Artis
[2020-04-13 17:42] LABS: Protime INR 3.44
[2020-04-13] MEDS ORDERED: METOPROLOL TAR 50 MG TAB PO SCH (18:00)
[2020-04-13] MEDS ORDERED: MANNITOL 25% 12.5 GM/50 ML VIAL IV PRN (19:24)
[2020-04-13] MEDS ORDERED: NA CHLORIDE 0.9% 1,000 ML IV PRN (19:24)
[2020-04-13] MEDS ORDERED: ALBUMIN HUMAN 25% 50 ML IV SCH (20:00)
[2020-04-13] MEDS ORDERED: ATORVASTATIN 40 MG TAB PO SCH (21:00)
[2020-04-13] MEDS ORDERED: CALCIUM CARBONATE CHEW 500MG TAB PO SCH (21:00)
[2020-04-13] MEDS: FAMOTIDINE 20 MG TAB PO SCH (21:31)
[2020-04-13] MEDS: PANTOPRAZOLE 40MG TABLET PO SCH (22:29)
--- NOTE | 2020-04-14 01:19 | CON ---
Date of Consultation: 04/13/2020 Reason For Consultation: Congestive heart failure. History Of Present Illness: Mr. Small is a -fdou-akr white male, has a history of end-stag e renal disease, diastolic congestive heart failure, gout, renal cancer in the past, history of deep venous thrombosis and pulmonary embolus. He is on dialysis. Came in with shortness of breath, PND, orthopnea, and pedal edema. Denied any chest pain, nausea, vomiting, diaphoresis, palpitation, or sy ncope. He denied any fever or chills. Past Medical History: As stated above. Allergies: HE IS ALLERGIC TO MORPHINE, CODEINE, AND TAPE. Medications: At home include inhalers multiple, Cardura, Lipitor, metoprolol, Keppra, and Coumadin. Review of Systems: Negative. Social History: Negative. Family History: Negative. Physical Examination: General: He was alert, oriented x3. He was in no acute distress. Vital Signs: Stable. He was in a sinus rhythm. HEENT: Negative. Neck: Supple with no bruit, lymphadenopathy, JVD, or thyromegaly. Chest: Revealed crackles at both bases. Cardiac: Revealed regular rhythm and rate with an S4 gallops. No murmurs or rubs. Abdomen: Benign. Extremities: Revealed 2+ edema. Neurological: He was nonfocal. Pulses were present distally bilaterally. He had an AV fistula rosario t in the left arm. Diagnostic Data: Creatinine was 9.56, potassium was 5.7. [place] BNP [place] [address]. EKG showed bifascicula r block. Chest x-ray showed multiple left lung nodules. Impression And Plan: 1.Acute on chronic diastolic congestive heart failure. The patient needs to be mostly diuresed, pro bably more via dialysis. His BNP elevation is secondary to combination of renal failure and congesti ve heart failure. I would like to obtain an echocardiogram. I agree with his present regimen otherw ise. 2.History of deep vein thrombosis with pulmonary embolus, on chronic Coumadin therapy. 3.End-stage renal disease, on hemodialysis. 4.Hypertension, well controlled. 5.History of gout. 6.History of renal cancer. Again, I would see what the echo shows. Continue present regimen. No r laura for interventional or invasive cardiac workup at this point. I will continue to follow him jose alfredo flores. GENA/LISA Voice ID: [id number] Report ID: [id number]
[2020-04-14 04:40] LABS: Absolute Lymphocytes (CBC) 0.8 K/uL (0.7-4.9); Basophils % 0.1 % (0-1.3); Hematocrit 33.7 % (39.6-49.0); Lymphocytes % 7.4 % (15.3-44.8); MPV 8.3 fL (7.6-11.3); RBC Red Blood Cell Count 3.42 M/uL (4.33-5.43)
[2020-04-14 05:00] LABS: Potassium 4.6 mmol/L (3.5-5.1)
[2020-04-14] MEDS: IPRATROPIUM BROM 0.5MG/2.5ML NEB SCH ×4 (08:30→16:20)
[2020-04-14] MEDS: ALBUTEROL 2.5 MG/3 ML NEB SOL NEB SCH ×3 (08:30→16:20)
[2020-04-14] MEDS: SEVELAMER CARBONATE 800 MG TABLET PO SCH ×3 (08:50→16:04)
[2020-04-14] MEDS: PANTOPRAZOLE 40MG TABLET PO SCH (08:50)
[2020-04-14] MEDS: CYANOCOBALAMIN 1,000 MCG TAB PO SCH (08:50)
[2020-04-14] MEDS: MULTIVITAMINS,THERAPEUT 1 TAB PO SCH (08:50)
[2020-04-14] MEDS ORDERED: POLYETHYL GLY 3350 17 GM/DOSE PO SCH (09:00)
[2020-04-14 09:53] LABS: Protime INR 2.35
--- NOTE | 2020-04-14 10:55 | PN ---
Date of Progress Note: 04/13/2020 The patient was seen yesterday on 04/13/2020 for multiple medical problems. Specifically, he has acu te on chronic diastolic congestive heart failure. He has a history of deep venous thrombosis and pul monary embolus on chronic Coumadin therapy. He has end-stage renal disease, on hemodialysis. He has a history of hypertension and renal cancer. He has an echocardiogram that is still pending for yandy perdue. Nephrology is involved in his care. Today, his blood pressure is 148/66, his temperature 97.4. He is in sinus rhythm with first-degree A V block. His O2 saturation is 89% on 2 L. Last creatinine was 7.81. His present regimen includes i nhalers, Lipitor, Protonix. Nephrology consultation is pending. We will see what the echocardiogram shows. Continue medical therapy. We will continue to follow. GENA/LISA Voice ID: [id number] Report ID: [id number]
[2020-04-14] MEDS ORDERED: MAGNESIUM OXIDE 400 MG TAB PO PRN (11:18)
[2020-04-14] MEDS ORDERED: TRAMADOL HCL 50 MG TAB PO PRN (11:18)
[2020-04-14] MEDS ORDERED: TEMAZEPAM 15 MG CAP PO PRN (11:18)
[2020-04-14] MEDS ORDERED: ACETAMINOPHEN 500 MG TAB PO PRN (11:18)
[2020-04-14] MEDS ORDERED: guaiFENesin 100 MG/5 ML UCUP PO PRN (11:18)
[2020-04-14] MEDS ORDERED: POLYETHYL GLY 3350 17 GM/DOSE PO PRN (11:18)
[2020-04-14] MEDS: CA ACETATE 667 MG CAP PO SCH ×2 (12:09→16:04)
[2020-04-14 12:18] LABS: Basophils % 0.5 % (0-1.3); Hematocrit 34.4 % (39.6-49.0); Lymphocytes % 11.8 % (15.3-44.8); MPV 8.3 fL (7.6-11.3); RBC Red Blood Cell Count 3.43 M/uL (4.33-5.43)
[2020-04-14 12:35] LABS: Potassium 5.3 mmol/L (3.5-5.1)
--- NOTE | 2020-04-14 16:13 | PN ---
Date of Progress Note: 04/14/2020 Subjective: The patient basically status quo. He is quite comfortable at rest. His oxygen levels a re good. However, once he is mobilized, there was some difficulty. We will therefore have PT to fur ther evaluate him this afternoon. Awaiting oxygen at home. He has been seen by Cardiology, suspect CHF element, awaiting his echo results. He did receive his dialysis. His INR is still elevated, bryn e issue with that as an outpatient has been relatively stable. Once all this is accomplished, he fátima uld be able to be discharged in the a.m. HR/MODL Voice ID: [id number] Report ID: [id number]
[2020-04-14] MEDS ORDERED: ACETAMINOPHEN PO SCH (21:00)
[2020-04-14] MEDS ORDERED: DIPHENHYDRAMINE PO SCH (21:00)
--- NOTE | 2020-04-14 21:40 | HP ---
Date of Admission: 04/14/2020 Entrance Complaint: Progressive dyspnea. History Of Present Illness: The patient has had some cough and dyspnea over the past few weeks accor ding to his home health nurse and his . He has had progressive dyspnea, so exertion minimally cr eates his situation. The cough is mostly nonproductive, has also been becoming worse. He has been t ested with a COVID test, which was negative and chest x-ray. However, the condition has progressed s ignificant enough that he presented to the emergency room for further evaluation. Past History: The patient has had numerous medical problems over the past few years ranging from end -stage renal disease following nephrectomy for renal CA. He has been on dialysis and presently is on home dialysis, which apparently is tolerating fairly well. He also has a history of DVT, a filter a nd history of hypertension with somewhat difficult to control, some question about whether or not he has CHF. Family History: Noncontributory. Social History: Nonsmoker, nondrinker. Physical Examination: General: The patient is an elderly, slightly obese male. Vital Signs: Stable vital signs at rest, but obvious dyspnea with any exertion. Head and Neck: Normocephalic. Pupils equal and reactive to light and accommodation. Fundi negative . Trachea midline. Thyroid not palpable. ENT: Negative. Chest: Clear to P and A. Occasional cough noted. Cardiovascular: PMI in midclavicular line. Heart: Sounds normal. Peripheral pulses present and equal bilaterally. Abdomen: No organomegaly. Bowel sounds present. Extremities: Good tone and movement bilaterally. Reflexes: Physiologic. Rectal: Deferred. Impression: Exertional dyspnea possibly secondary to congestive heart failure, post deep venous thro mbosis, end-stage renal disease on dialysis, kidney cancer by history. Plan: The patient will be admitted, monitored. Oxygen, which has not been required at home, will be utilized and probably will need some at the time of discharge as well. Be seen by Cardiology and Ne phrology depending on these outcomes, depending on his length of stay. As of note that a CT scan fátima wed multiple lesions, which he is aware of and has been awaiting a time in the [place] for a pulmonar y biopsy, which has not been scheduled, but according to the should be done in the next week or so. HR/MODL Voice ID: [id number]
--- NOTE | 2020-04-14 21:48 | P.CNS ---
Date of Consult: 04/14/20 Reason for Consult: ESRD Requesting Physician: Keyon Love Chief Complaint: Dyspnea History of Present Illness: 85 yo WM CKD, CHF presented to the ER with moderate, progressive dyspnea in the setting of CHF with associated malaise, fatigue and edema. 13:51 This 85 yrs old Male presents to ER via Ambulatory with complaints of snw Shortness Of Breath, Cough. 13:51 The patient has shortness of breath at rest. Onset: The symptoms/episode began/occurred snw 1 month(s) ago, and became persistent. Duration: The symptoms are continuous. Associated signs and symptoms: Pertinent positives: This patient does not have any pertinent positive signs or symptoms associated with shortness of breath. Pertinent negatives: chest pain. Severity of symptoms: At their worst the symptoms were mild. It is unknown whether or not the patient has had similar symptoms in the past. pt states he had dialysis yesterday. Pt states Dr. Love wanted to check on his heart function. Allergies sevelamer [From Renvela] Allergy (Verified 07/21/19 23:19) Itching adhesive tape Adverse Reaction (Verified 07/21/19 23:19) Itching codeine Adverse Reaction (Verified 07/21/19 23:19) Itching morphine Adverse Reaction (Verified 07/21/19 23:19) Itching Home medications list reviewed: Yes Home Medications: Calcium Acetate [Phoslo*] 2,001 mg PO TIDWM cap 08/07/19 Loratadine [Claritin*] 10 mg PO DAILY tab 08/07/19 Warfarin Sodium [Coumadin*] 5 mg PO DAILY 5 PM tab 08/07/19 guaiFENesin [Robitussin 100MG/5ML*] 5 ml PO QID PRN ucup 08/07/19 Acetaminophen [Tylenol Extra Strength] 1 tab PO PRN PRN 04/13/20 Acetaminophen/Diphenhydramine [Tylenol Pm Ex-Strength Caplet] 2 tab PO BEDTIME 04/13/20 Albuterol Neb [Proventil 0.083% Neb Soln] 2.5 mg NEB TID 04/13/20 Antiox.mv No.10/Omeg3s/Lut/Yolande [I-Caps with Lutein-[place] 3 Sfg] 1 tab PO BID 04/13/20 Atorvastatin Calcium [Lipitor*] 1 tab PO DAILY 04/13/20 Febuxostat [Uloric] 1 tab PO DAILY 04/13/20 Folic Acid/Vit B Complex and C [Lucila-Tenzin Tablet] 1 tab PO DAILY 04/13/20 Guaifenesin [Mucinex] 1 tab PO DAILY 04/13/20 Guaifenesin/Dextromethorphan [Coricidin Hbp Chest Joselo-Cough] 1 tab PO DAILY 04/13/20 Magnesium [Magnesium Gluconate] 1 tab PO DAILY PRN 04/13/20 Metoprolol Tartrate 1 tab PO DAILY 04/13/20 Polyethylene Glycol 3350 [Miralax] 1 tab PO DAILY PRN 04/13/20 Temazepam 1 tab PO SEECOM PRN 04/13/20 Tramadol HCl [Ultram] 50 mg PO Q4H PRN 04/13/20 Warfarin Sodium [Coumadin*] 1 tab PO SEECOM 04/13/20 - Past Medical/Surgical History Diabetic: No -: HTN -: Stage 4 kidney -: DVT filter -: Kidney Ca -: 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 -: CHF -: chronic anemia -: AFib -: ESRD -: DVT filter placed -: cataract sx -: hemorrhoidectomy -: bilateral knee sx -: left hip surgery -: partial nephrectomy - Family History Mother Medical History: Heart disease, Hypertension, Cancer Notes: breast cancer [place] Father Medical History: Heart disease, Hypertension Notes: CHF Sister Medical History: Hypertension, Kidney disease Notes: breast removed d/t precancer - Social History Alcohol use: No CD- Drugs: No Caffeine use: Yes Place of Residence: Home Review of Systems 10-point ROS is otherwise unremarkable General: Weakness, Malaise Respiratory: SOB with Excertion Cardiovascular: Edema Neurological: Weakness Physical Examination Temp Pulse Resp BP Pulse Ox 98.3 F 99 H 20 148/91 H 91 04/14/20 16:00 04/14/20 16:00 04/14/20 16:00 04/14/20 16:00 04/14/20 16:00 General: In no apparent distress, Cooperative HEENT: Normocephalic Neck: JVD distended Respiratory: Clear to auscultation bilaterally, Diminished Cardiovascular: Regular rate/rhythm, Edema Gastrointestinal: Soft and benign, Non-distended Musculoskeletal: No clubbing, No contractures Integumentary: No rashes, No cyanosis Neurological: Normal speech Laboratory Data (last 24 hrs) 04/14/20 03:54: Sodium 139, Potassium 4.6, BUN 65 H, Creatinine 7.81 H* D, Glucose 91 04/14/20 03:54: WBC 10.8 D, Hgb 11.2 L, Hct 33.7 L D, Plt Count 235 Imagings Data: EXAM DESCRIPTION: CT - Thorax Wo Con - 04/12/2020 4:30 pm CLINICAL HISTORY: lower SpO2 yest, cough and wheezing COMPARISON: Thorax W/ Con dated 02/18/2020; Thorax Wo Con dated 12/27/2016 TECHNIQUE: Axial 5 mm thick images of the chest were obtained without IV contrast. All CT scans are performed using dose optimization technique as appropriate and may include automated exposure control or mA/KV adjustment according to patient size. FINDINGS: No acute infiltrate in the lung parenchyma. No interstitial or alveolar edema pattern identifiable. In the lingula of the left upper lobe the patient has a lobulated mass. This is approximately 2.8 cm AP x 2.6 cm TR. This measures fractionally larger than February 17 imaging. In the medial left lower lobe a 15 mm AP x 15 mm TR rounded mass is present. There is an adjacent 7 x 7 mm nodule. No right lung field mass or nodule identified. The left lung field masses measure slightly larger than February. However, there was greater motion on the February examination. The differential measurements are very minimal and may be accounted for by volume averaging affects and banbury machine operator technique. No pleural thickening or pleural effusion. No pneumothorax. No abnormal mediastinal or hilar masses or lymphadenopathy seen. No gross aortic or pulmonary artery finding suspected. Prominent bronchial calcifications are present. Dense arterial tree calcifications are present without displacement. No endobronchial lesion. No pericardial effusion. No chest wall mass or abnormal axillary lymphadenopathy. Disc and bone degenerative changes are present. Old partial compression fracture upper thoracic spine has not change IMPRESSION: No infiltrate, pulmonary edema or other acute CT chest finding. Left lung field pulmonary nodules measure slightly larger than the February 2 imaging. This could potentially be true growth and needs ongoing monitoring. Volume averaging affects and differences in banbury machine operator technique could also account for the very slight interval change. Conclusions/Impression: A/ ESRD on HD HTN with CKD/ CHF Diastolic CHF, A/C. P. Afib Anemia in CKD PRASANNA/ Secondary HyperPTH P/ Continue current POC and Medications. Arrange for acute HD with UF. AM labs. Daily weight. No NSAIDs. Thank you kindly for the consultation.
[2020-04-14] MEDS: FAMOTIDINE 20 MG TAB PO SCH (21:58)
[2020-04-14] MEDS: ACETAMINOPHEN 500 MG TAB PO SCH (21:58)
[2020-04-14] MEDS: ATORVASTATIN 10 MG TAB PO SCH (21:58)
[2020-04-14] MEDS: DIPHENHYDRAMINE 25 MG TAB/CAP PO SCH (21:59)
[2020-04-15] MEDS: ALBUTEROL 2.5 MG/3 ML NEB SOL NEB SCH ×4 (00:05→20:05)
[2020-04-15] MEDS: IPRATROPIUM BROM 0.5MG/2.5ML NEB SCH ×4 (00:05→20:05)
[2020-04-15 04:13] LABS: Absolute Lymphocytes (CBC) 1.1 K/uL (0.7-4.9); Basophils % 0.5 % (0-1.3); Hematocrit 34.1 % (39.6-49.0); Lymphocytes % 14.6 % (15.3-44.8); MPV 8.1 fL (7.6-11.3); RBC Red Blood Cell Count 3.44 M/uL (4.33-5.43)
[2020-04-15 04:58] LABS: Albumin 3.2 g/dL (3.4-5.0); Bilirubin Total 0.7 mg/dL (0.2-1.0); Magnesium 2.8 mg/dL (1.8-2.4); Phosphorus 5.1 mg/dL (2.5-4.9); Potassium 5.5 mmol/L (3.5-5.1); Protein, Total 6.8 g/dL (6.4-8.2); Uric Acid 1.7 mg/dL (3.5-7.2)
[2020-04-15 07:11] VITALS: BMI 46.3
[2020-04-15] MEDS: GUAIFENESIN 600 MG SA TAB PO SCH (08:43)
[2020-04-15] MEDS: CA ACETATE 667 MG CAP PO SCH ×3 (08:44→17:58)
[2020-04-15] MEDS: SEVELAMER CARBONATE 800 MG TABLET PO SCH ×3 (08:45→17:58)
[2020-04-15] MEDS: PANTOPRAZOLE 40MG TABLET PO SCH (08:45)
[2020-04-15] MEDS: CYANOCOBALAMIN 1,000 MCG TAB PO SCH (08:45)
[2020-04-15] MEDS: LORATADINE 10 MG TAB PO SCH (08:45)
[2020-04-15] MEDS: FEBUXOSTAT PO SCH (08:47)
[2020-04-15] MEDS: MULTIVITAMINS,THERAPEUT 1 TAB PO SCH (08:48)
[2020-04-15] MEDS ORDERED: FOLIC ACID PO SCH (09:00)
[2020-04-15] MEDS ORDERED: HOME MED 1 EA UNK (Metoprolol Tartrate [Metoprolol Tartrate] 1 TAB) PO SCH (09:00)
[2020-04-15] MEDS ORDERED: VIT B COMPLEX AND C PO SCH (09:00)
[2020-04-15 09:44] LABS: Protime INR 1.36
--- NOTE | 2020-04-15 10:03 | ECHO ---
HEIGHT: 5 ft 2 in WEIGHT: 253 lb 8 oz DATE OF STUDY: 04/14/[address]: Malik Artis MD 2-DIMENSIONAL: YES M.MODE: YES DOPPLER: YES COLOR FLOW: YES TDS: YES PORTABLE: NO DEFINITY: NO BUBBLE STUDY: NO DIAGNOSIS: CONGESTIVE HEART FAILURE CARDIAC HISTORY: CATHERIZATION: NO SURGERY: NO PROSTHETIC VALVE: NO PACEMAKER: NO MEASUREMENTS (cm) DIASTOLIC (NORMALS) SYSTOLIC (NORMALS) IVSd 1.3 (0.6-1.2) LA Diam 3.4 (1.9-4.0) LVEF 59% LVIDd 4.1 (3.5-5.7) LVIDs 2.8 (2.0-3.5) %FS 31% LVPWd 1.4 (0.6-1.2) Ao Diam 3.7 (2.0-3.7) 2 DIMENSIONAL ASSESSMENT: RIGHT ATRIUM: NORMAL LEFT ATRIUM: NORMAL RIGHT VENTRICLE: NORMAL LEFT VENTRICLE: LEFT VENTRICULAR HYPERTROPHY TRICUSPID VALVE: NORMAL MITRAL VALVE: MITRAL ANNULAR CALCIFICATION PULMONIC VALVE: NORMAL AORTIC VALVE: SCLEROSIS PERICARDIAL EFFUSION: NONE AORTIC ROOT: NORMAL LEFT VENTRICULAR WALL MOTION: NORMAL LEFT VENTRICULAR EJECTION FRACTION. DOPPLER/COLOR FLOW: NORMAL COMMENTS: NORMAL LEFT VENTRICULAR EJECTION FRACTION. DECREASED LEFT VENTRICULAR COMPLIANCE. MITRAL ANNULAR CALCIFICATION. AORTIC SCLEROSIS WITH NO STENOSIS. LEFT VENTRICULAR HYPERTROPHY. TECHNOLOGIST: Chantelle MARIE
[2020-04-15] MEDS: predniSONE 20 MG TAB PO SCH ×2 (13:21→20:13)
--- NOTE | 2020-04-15 16:38 | PN ---
Date of Progress Note: 04/15/2020 Subjective: The patient is basically status quo. He is going to go down for his dialysis now and fo llowing that, he should be able to discharged as his oxygen is set up at home now. His INR is low. We will start Coumadin 5 mg. Still has some cough, not sure of the etiology as his echo does not fátima w much in the way of failure. Perhaps this is a primary pulmonary problem related to his renal probl ems and he will be continued on the same medication and follow up with myself and Cardiology. He is discharged in fair condition. HR/MODL Voice ID: [id number] Report ID: [id number]
--- NOTE | 2020-04-15 17:14 | PN ---
Addendum: The nurses note that he had a coughing spell. I went into his room and he did have signif icant spell of marked rhonchi during this time. The case was discussed with Dr. Quach who has not seen a seed technician and he will be able to see him in the morning, so I feel that due to the signifi cance of requiring oxygen and progressive symptomatology, we will have him see him tomorrow and put a ll on his discharge. HR/MODL Voice ID: [id number] Report ID: [id number]
[2020-04-15] MEDS: FAMOTIDINE 20 MG TAB PO SCH (20:12)
[2020-04-15] MEDS: DIPHENHYDRAMINE 25 MG TAB/CAP PO SCH (20:13)
[2020-04-15] MEDS: ATORVASTATIN 10 MG TAB PO SCH (20:13)
[2020-04-15] MEDS: ACETAMINOPHEN 500 MG TAB PO SCH (21:00)
[2020-04-15] MEDS ORDERED: SOD POLYSTYREN SUL 15 GM/60 ML UCUP PO ONE (21:18)
--- NOTE | 2020-04-15 21:26 | P.PN ---
Date of Service: 04/15/20 Vital Signs Temp Pulse Resp BP Pulse Ox 97.8 F 99 H 20 92/46 L 96 04/15/20 20:00 04/15/20 20:00 04/15/20 20:00 04/15/20 20:00 04/15/20 20:00 Medications Acetaminophen (Tylenol -Extra Strength) 500 mg PO Q4HP PRN PRN Reason: Pain scale 5-7 (Moderate) Stop: 05/14/20 11:19 Last Admin: 04/15/20 08:52 Dose: 500 mg Documented by: Acetaminophen (Tylenol -Extra Strength) 1,000 mg PO BEDTIME BASSAM Stop: 05/14/20 21:01 Last Admin: 04/14/20 21:58 Dose: 1,000 mg Documented by: Albuterol Sulfate (Proventil 0.083% Neb Soln) 2.5 mg NEB [id number] BASSAM Stop: 05/14/20 00:01 Last Admin: 04/15/20 15:36 Dose: Not Given Documented by: Atorvastatin Calcium (Lipitor) 10 mg PO BEDTIME BASSAM Stop: 05/14/20 21:01 Last Admin: 04/15/20 20:13 Dose: 10 mg Documented by: Calcium Acetate (Phoslo) 2,001 mg PO TIDWM BASSAM Stop: 05/14/20 12:01 Last Admin: 04/15/20 17:58 Dose: 2,001 mg Documented by: Cyanocobalamin (Vitamin B-12) 2,000 mcg PO DAILY BASSAM Stop: 05/14/20 09:01 Last Admin: 04/15/20 08:45 Dose: 2,000 mcg Documented by: Diphenhydramine HCl (Benadryl Tab/Cap) 50 mg PO BEDTIME BASSAM Stop: 05/14/20 21:01 Last Admin: 04/15/20 20:13 Dose: 50 mg Documented by: Famotidine (Pepcid) 20 mg PO BEDTIME [facility]; Protocol Stop: 05/13/20 21:01 Last Admin: 04/15/20 20:12 Dose: 20 mg Documented by: Guaifenesin (Mucinex 600mg) 600 mg PO DAILY BASSAM Stop: 05/15/20 09:01 Last Admin: 04/15/20 08:43 Dose: 600 mg Documented by: Guaifenesin (Robitussin 100mg/5ml) 100 mg PO QID PRN PRN Reason: COUGH Stop: 05/14/20 11:19 Last Admin: 04/15/20 00:03 Dose: 100 mg Documented by: Heparin Sodium (Porcine) (Heparin 1,000 Units/Ml) 6,000 unit IV EVERY HD PRN PRN Reason: AFTER EACH Stop: 05/13/20 19:25 Last Admin: 04/15/20 12:58 Dose: 3,000 unit Documented by: Home Med (Febuxostat [Uloric]) 1 tab PO DAILY [facility] Stop: 05/15/20 09:01 Last Admin: 04/15/20 08:47 Dose: Not Given Documented by: Albumin Human (Albumin 25%) 50 mls @ 100 mls/hr IV EVERY HD [facility] Stop: 05/13/20 20:01 Ipratropium [place] (Atrovent Neb) 0.5 mg NEB [id number] BASSAM Stop: 05/15/20 14:01 Last Admin: 04/15/20 14:00 Dose: Not Given Documented by: Loratadine (Claritin) 10 mg PO DAILY [facility] Stop: 05/15/20 09:01 Last Admin: 04/15/20 08:45 Dose: 10 mg Documented by: Magnesium Oxide (Mag 0x Tab) 200 mg PO DAILY PRN PRN Reason: MUSCLE SPASMS Mannitol (Mannitol 12.5 Gm/50 Ml Vial) 12.5 gm IV EVERY HD PRN PRN Reason: Titrate to SBP (MUST DEFINE) Stop: 05/13/20 19:25 Last Admin: 04/15/20 15:10 Dose: 12.5 gm Documented by: Metoprolol Tartrate (Lopressor) 100 mg PO TuThSa@0900 [facility] Stop: 05/16/20 09:01 Pantoprazole Sodium (Protonix Tab) 40 mg PO DAILY [facility]; Protocol Stop: 05/14/20 09:01 Last Admin: 04/15/20 08:45 Dose: 40 mg Documented by: Polyethylene Glycol (Glycolax) 17 gm PO DAILY PRN PRN Reason: CONSTIPATION Stop: 05/14/20 11:19 Prednisone (Deltasone) 20 mg PO BID [facility] Stop: 05/15/20 13:22 Last Admin: 04/15/20 20:13 Dose: 20 mg Documented by: Sevelamer Carbonate (Renvela) 1,600 mg PO TIDWM BASSAM Stop: 05/14/20 08:01 Last Admin: 04/15/20 17:58 Dose: 1,600 mg Documented by: Sodium Chloride (Normal Saline Flush) 10 ml IV BID BASSAM Stop: 05/13/20 21:01 Last Admin: 04/15/20 20:14 Dose: 10 ml Documented by: Sodium Polystyrene Sulfonate (Kayexelate) 15 gm PO 1X ONE Stop: 04/15/20 21:19 Temazepam (Restoril) 30 mg PO BEDTIME PRN PRN PRN Reason: INSOMNIA Stop: 05/14/20 11:19 Tramadol HCl (Ultram) 50 mg PO Q4H PRN PRN Reason: Pain scale 8-10 (Severe) Stop: 05/14/20 11:19 Vitamin B Complex/Vit C/Folic Acid (Nephro-Tenzin) 1 tab PO DAILY BASSAM Stop: 05/14/20 09:01 Last Admin: 04/15/20 08:48 Dose: 1 tab Documented by: Assessment/ Plan: Nephrology CPS stable without CP or SOB. Persistent cough. No acute events overnight. Seen and examined on dialysis. Vitals, medications, blood work and imaging reviewed in the chart. General: In no apparent distress, Cooperative HEENT: Normocephalic Neck: JVD distended Respiratory: Clear to auscultation bilaterally, Diminished Cardiovascular: Regular rate/rhythm, Edema Gastrointestinal: Soft and benign, Non-distended Musculoskeletal: No clubbing, No contractures Integumentary: No rashes, No cyanosis Neurological: Normal speech Laboratory Data (last 24 hrs) 04/14/20 03:54: Sodium 139, Potassium 4.6, BUN 65 H, Creatinine 7.81 H* D, Glucose 91 04/14/20 03:54: WBC 10.8 D, Hgb 11.2 L, Hct 33.7 L D, Plt Count 235 Imagings Data: EXAM DESCRIPTION: CT - Thorax Wo Con - 04/12/2020 4:30 pm CLINICAL HISTORY: lower SpO2 yest, cough and wheezing COMPARISON: Thorax W/ Con dated 02/18/2020; Thorax Wo Con dated 12/27/2016 TECHNIQUE: Axial 5 mm thick images of the chest were obtained without IV contrast. All CT scans are performed using dose optimization technique as appropriate and may include automated exposure control or mA/KV adjustment according to patient size. FINDINGS: No acute infiltrate in the lung parenchyma. No interstitial or alveolar edema pattern identifiable. In the lingula of the left upper lobe the patient has a lobulated mass. This is approximately 2.8 cm AP x 2.6 cm TR. This measures fractionally larger than February 17 imaging. In the medial left lower lobe a 15 mm AP x 15 mm TR rounded mass is present. There is an adjacent 7 x 7 mm nodule. No right lung field mass or nodule identified. The left lung field masses measure slightly larger than February. However, there was greater motion on the February examination. The differential measurements are very minimal and may be accounted for by volume averaging affects and facer operator technique. No pleural thickening or pleural effusion. No pneumothorax. No abnormal mediastinal or hilar masses or lymphadenopathy seen. No gross aortic or pulmonary artery finding suspected. Prominent bronchial calcifications are present. Dense arterial tree calcifications are present without displacement. No endobronchial lesion. No pericardial effusion. No chest wall mass or abnormal axillary lymphadenopathy. Disc and bone degenerative changes are present. Old partial compression fracture upper thoracic spine has not change IMPRESSION: No infiltrate, pulmonary edema or other acute CT chest finding. Left lung field pulmonary nodules measure slightly larger than the February 2 imaging. This could potentially be true growth and needs ongoing monitoring. Volume averaging affects and differences in facer operator technique could also account for the very slight interval change. Conclusions/Impression: A/ ESRD on HD HTN with CKD/ CHF Diastolic CHF, A/C. P. Afib Anemia in CKD PRASANNA/ Secondary HyperPTH P/ Continue current POC and Medications. Acute HD as ordered. Give Kayexalate X1. Continue home meds as indicated. AM labs. Daily weight. No NSAIDs.
--- NOTE | 2020-04-15 23:02 | PN ---
Date of Progress Note: 04/15/2020 Mr. Small was admitted on 04/13/2020. He was seen for congestive heart failure. Echocardiogram yest erday showed a normal ejection fraction with decreased left ventricular compliance consistent with ac [id number] diastolic congestive heart failure. 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 He has end-stage renal disease, on hemodialysis. He has a history of hypertension, gout, and r enal cancer. He has been followed by Nephrology, Dr. Suarez, saw the patient. The plan was to cont inue his present regimen. Avoid nonsteroidals. Continue Coumadin. Arrange for acute hemodialysis w ith ultrafiltration. The patient is on metoprolol 100 mg once a day and I believe with his decreased left ventricular compliance, hemodialysis and beta-blockers are the mainstay of therapy. He does butcher ve paroxysmal atrial fibrillation for which he is on Coumadin anyway. I will sign off his case for n ow. I will be available for questions if the need arises. GENA/LISA Voice ID: [id number] Report ID: [id number]
[2020-04-16] MEDS: IPRATROPIUM BROM 0.5MG/2.5ML NEB SCH ×3 (01:55→14:50)
[2020-04-16] MEDS: ALBUTEROL 2.5 MG/3 ML NEB SOL NEB SCH ×3 (01:55→15:24)
[2020-04-16] MEDS: FEBUXOSTAT PO SCH (09:00)
[2020-04-16] MEDS ORDERED: METOPROLOL TAR 50 MG TAB PO SCH (09:00)
[2020-04-16] MEDS: SEVELAMER CARBONATE 800 MG TABLET PO SCH ×3 (09:22→16:41)
[2020-04-16] MEDS: CA ACETATE 667 MG CAP PO SCH ×3 (09:23→16:42)
[2020-04-16] MEDS: GUAIFENESIN 600 MG SA TAB PO SCH (09:24)
[2020-04-16] MEDS: CYANOCOBALAMIN 1,000 MCG TAB PO SCH (09:24)
[2020-04-16] MEDS: LORATADINE 10 MG TAB PO SCH (09:24)
[2020-04-16] MEDS: predniSONE 20 MG TAB PO SCH (09:24)
[2020-04-16] MEDS: PANTOPRAZOLE 40MG TABLET PO SCH (09:24)
[2020-04-16] MEDS: MULTIVITAMINS,THERAPEUT 1 TAB PO SCH (09:30)
[2020-04-16 10:20] LABS: Albumin 3.2 g/dL (3.4-5.0); Bilirubin Total 0.6 mg/dL (0.2-1.0); Potassium 5.2 mmol/L (3.5-5.1); Protein, Total 6.8 g/dL (6.4-8.2)
--- NOTE | 2020-04-16 10:52 | P.CNS ---
Date of Consult: 04/16/20 Reason for Consult: cough Chief Complaint: cough History of Present Illness: Patient is 85 years of age evaluated by me for a chronic cough discuss with his is been going on since November he has had cough medications no relief including nebulizers also little hypoxic short of breath he has chronic renal failure on dialysis also has multiple mets to the lung scheduled for renal biopsy today is doing somewhat better discuss at length with his Allergies sevelamer [From Renvela] Allergy (Verified 07/21/19 23:19) Itching adhesive tape Adverse Reaction (Verified 07/21/19 23:19) Itching codeine Adverse Reaction (Verified 07/21/19 23:19) Itching morphine Adverse Reaction (Verified 07/21/19 23:19) Itching Home Medications: Calcium Acetate [Phoslo*] 2,001 mg PO TIDWM cap 08/07/19 Loratadine [Claritin*] 10 mg PO DAILY tab 08/07/19 Warfarin Sodium [Coumadin*] 5 mg PO DAILY 5 PM tab 08/07/19 guaiFENesin [Robitussin 100MG/5ML*] 5 ml PO QID PRN ucup 08/07/19 Acetaminophen [Tylenol Extra Strength] 1 tab PO PRN PRN 04/13/20 Acetaminophen/Diphenhydramine [Tylenol Pm Ex-Strength Caplet] 2 tab PO BEDTIME 04/13/20 Albuterol Neb [Proventil 0.083% Neb Soln] 2.5 mg NEB TID 04/13/20 Antiox.mv No.10/Omeg3s/Lut/Yolande [I-Caps with Lutein-[place] 3 Sfg] 1 tab PO BID 04/13/20 Atorvastatin Calcium [Lipitor*] 1 tab PO DAILY 04/13/20 Febuxostat [Uloric] 1 tab PO DAILY 04/13/20 Folic Acid/Vit B Complex and C [Lucila-Tenzin Tablet] 1 tab PO DAILY 04/13/20 Guaifenesin [Mucinex] 1 tab PO DAILY 04/13/20 Guaifenesin/Dextromethorphan [Coricidin Hbp Chest Joselo-Cough] 1 tab PO DAILY 04/13/20 Magnesium [Magnesium Gluconate] 1 tab PO DAILY PRN 04/13/20 Metoprolol Tartrate 1 tab PO DAILY 04/13/20 Polyethylene Glycol 3350 [Miralax] 1 tab PO DAILY PRN 04/13/20 Temazepam 1 tab PO SEECOM PRN 04/13/20 Tramadol HCl [Ultram] 50 mg PO Q4H PRN 04/13/20 Warfarin Sodium [Coumadin*] 1 tab PO SEECOM 04/13/20 Fluticasone/Salmeterol [Advair 250-50 Diskus] 1 each IH BID #60 blst.w.dev 04/16/20 Pantoprazole Sodium [Protonix] 40 mg PO 30 MIN BEFORE HS 3 Days #30 tablet. 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 -: CHF -: chronic anemia -: AFib -: ESRD -: DVT filter placed -: cataract sx -: hemorrhoidectomy -: bilateral knee sx -: left hip surgery -: partial nephrectomy - Family History Mother Medical History: Heart disease, Hypertension, Cancer Notes: breast cancer [place] Father Medical History: Heart disease, Hypertension Notes: CHF Sister Medical History: Hypertension, Kidney disease Notes: breast removed d/t precancer - Social History Alcohol use: No CD- Drugs: No Caffeine use: Yes Place of Residence: Home Review of Systems General: Weakness Respiratory: Cough, Shortness of Breath Physical Examination Temp Pulse Resp BP Pulse Ox 98.1 F 92 H 19 170/72 H 94 04/16/20 08:00 04/16/20 09:24 04/16/20 08:00 04/16/20 09:24 04/16/20 08:00 General: Alert, Oriented x3 Neck: Supple Respiratory: Clear to auscultation bilaterally Cardiovascular: No edema, Regular rate/rhythm Gastrointestinal: Normal bowel sounds, Soft and benign Musculoskeletal: No clubbing, No swelling - Problems (1) Cough Current Visit: Yes Status: Acute Plan: Patient is 85 years of age admitted with a chronic cough he has a history of acid reflux use to take Pepcid and Tums ksjw-vjg-mgsjogg the was stop due to high levels of calcium chronic renal failure on dialysis he has got multiple mets to his lung presumed renal cancer I discharge on Advair low-dose prednisone and up and the pros is all labs reviewed use albuterol p.r.n. 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
--- NOTE | 2020-04-16 12:15 | PN ---
Date of Progress Note: 04/16/2020 Subjective: The patient has had no significant coughing episodes today and his O2 saturation is good . He has been seen by Pulmonology. Possibility of the majority of his significant cough may be seco ndary to regurgitation as considered and he has been placed on Protonix. The inhalation therapy has also been changed to Advair and the addition of prednisone daily basis. At this stage, the pulmonary procedure is being put on hold till the cough is controlled. Awaiting INR. Once this is obtained, he then will be discharged on his oxygen in fair condition. Follow up with myself; Oncology in [place] on; and Pulmonology, Dr. Friend. HR/MODL Voice ID: [id number] Report ID: [id number]
[2020-04-16 12:21] VITALS: O2SAT 95
[2020-04-16 12:54] LABS: Protime INR 1.18
[2020-04-16] MEDS ORDERED: WARFARIN SODIUM 5 MG TAB PO ONE (14:00)
[2020-04-16 16:48] VITALS: BP 159/72; TEMP 97.5
[2020-04-19 19:40] LABS: HBsAG Nonreactive (Nonreactive)
== END 2020-04-16 17:46 | disposition home or self-care (01) | DRG 291 ==
LOC: ER 11:03 → ERHOLD 04-13 12:25 → 2ND 04-13 16:12 → OBSVTOIN 04-14 09:25
PROVIDERS: ADMIT Family Medicine; ATTEND Family Medicine
DX: I13.2 Hypertensive heart and chronic kidney disease with heart failure and with stage 5 chronic kidney disease, or end stage renal disease (principal); N18.6 End stage renal disease; I50.33 Acute on chronic diastolic (congestive) heart failure; N17.9 Acute kidney failure, unspecified; C78.02 Secondary malignant neoplasm of left lung; I48.91 Unspecified atrial fibrillation; M10.9 Gout, unspecified; Z99.2 Dependence on renal dialysis; Z79.01 Long term (current) use of anticoagulants; Z79.51 Long term (current) use of inhaled steroids; Z11.59 Encounter for screening for other viral diseases
CPT/HCPCS: 36415; 71045; 71250; 80048; 80053; 82947; 83735; 83880; 84100; 84550; 85025; 85610; 86317; 86705; 87340; 90935; 93005; 93306; 96372; 97116; 97161; 99285; G0378; J1100; J2150; J3010; J3420; J7512; U0003

== ENCOUNTER 2020-11-30 21:11 | Inpatient (IN) | payer OTHER ==
--- OUTSIDE RECORDS SUMMARY | 2020-11-30 21:15 | XMS REPORT | Continuity of Care Document ---
:[address] [facility] t Address [address] [place] [address] Dr. [address]. [address] [place] [address] Care Team Providers Name Role Phone Kate MORENO Primary Care Physician Doctor Unassigned, Name Attending Clinician Unavailable Andrew GRIGSBY Attending Clinician Unavailable Jeramie MORENO Attending Clinician Ananya MORENO Attending Clinician Karmen León MD Attending Clinician Mark MORENO, B. Attending Clinician Jarrett MORENO Attending Clinician Sae Hernandez MD Attending Clinician Lab, Fam Pob I Attending Clinician Unavailable Sea Hernandez MD Attending Clinician SAE HERNANDEZ Attending Clinician Unavailable Kristen MORENO, Petar Attending Clinician Po, [facility] Attending Clinician Unavailable Roque Alan MD Attending Clinician ALEA Attending Clinician Unavailable MAXIMO Attending Clinician Unavailable Karmen León MD Admitting Clinician SAE HERNANDEZ Admitting Clinician Unavailable OPHELIA Admitting Clinician Unavailable CHRISTOPHER Admitting Clinician Unavailable Payers Payer Name Policy Type Policy Effective Date Expiration Date Sour ce Number MEDICAREMEDICARE PART [id number] 2002 Thom Mix AND 00:00:00 [facility] [id number] 2001- PresentHOUSHAHAB ARMedicare AETNAAETNA [id number] 2000 Jose USHEALTHCARE 00:00:00 Orthodoxy [id number] 08/2000-PresentIndemni ty MEDICAREMEDICARE A [id number] ROSIBEL Shayla Cates [id number] 2001- 00:00:00 - M edical PresentMedicare Center [facility] [id number] 2019 ROSIBEL Puckett SUPPLEMENT/INDIVIDUAL 00:00:00 - M [facility] [id number] 2019-Present Problems Condition Condition Condition Status Onset Resolution Last Treating Co mments Source Name Details Category Date Date Treatment Clinician Date 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 09-07 Me thodi itis of itis of 00:00: st both both 00 shoulders shoulders Varicose Varicose Disease Active 2019-08 [place] veins of veins of 09-10 Method i right right 00:00: st lower lower 00 extremity extremity with with inflammati inflammati on, with on, with ulcer of ulcer of ankle ankle limited to limited to breakdown breakdown of skin of skin Right leg Right leg Disease Active 2019-08 [place] [facility] pain pain 09-10 Methodi 00:00: st 00 Post-traum Post-traum Disease Active 2019-08 H catherine atna atic 08-29 Methodi osteoarthr osteoarthr 00:00: st itis of itis of 00 right right shoulder shoulder Primary Primary Disease Active 2019-08 [place] osteoarthr osteoarthr 08-29 Me thodi itis of itis of 00:00: st left left 00 shoulder shoulder 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 08-29 Me thodi t of left t of left 00:00: st shoulder shoulder 00 Tremor Tremor Disease Active [place] 09-10 Methodi 00:00: st 00 Toxic Toxic Disease Active [place] metabolic metabolic 09-09 Meth matt encephalop encephalop 00:00: st athy athy 00 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 Added automatic ally from request for surgery [id number] Venous Venous Disease Active [place] stasis stasis 04-04 Methodi dermatitis dermatitis 00:00: st of both of both 00 lower lower extremitie extremitie s s Lymphedema Lymphedema Disease Active [place] of both of both 04-04 Methodi lower lower 00:00: st extremitie extremitie 00 s s Allergies, Adverse Reactions, Alerts Allergy Allergy Status Severity Reaction(s) Onset Inactive Treating Comm ents Source Name Type Date Date Clinician Latex Drug Active Rash [facility] Center Sevelame Drug Active Itching [facility] All[facility] 05-04 [facility] - Carbonat 00:00: Medical e 00 Center Gabapent Propensi Active Hallucina [facility] in ty to 05-04 timaggi, [facility] - adverse 00:00: diarrhea, Medica l reaction 00 Center s Gabapent Propensi Active Altered 0 [place] in ty to Mental 02-23 Methodi adverse Status 00:00: st reaction 00 s to drug Sevelame Propensi Active Itching 0 [place] r ty to 02-23 Methodi Carbonat adverse 00:00: st e reaction 00 s to drug Morphine Propensi Active Itching, "MAKES ME C HI St ty to Other (See 04-29 GOOFY - [facility] - adverse Comments) 00:00: NO PAIN Medic al reaction 00 RELIEF""M Cente r s AKES ME GOOFY - NO PAIN RELIEF""M AKES ME GOOFY - NO PAIN RELIEF""M AKES ME GOOFY - NO PAIN RELIEF" Adhesive Propensi Active Itching, BLISTERSB C HI St Tape ty to Rash 04-29 LISTERSBL [facility] - adverse 00:00: ISTERSBLI Medica l reaction 00 STERS Center s Adhesive Propensi Active Rash BLISTERSB [facility] Tape-Ina ty to 04-29 LISTERS [facility] - icones adverse 00:00: Medical reaction 00 Center s Adhesive Propensi Active Rash BLISTERS [place] Tape-[place] ty to 04-29 Methodi icones adverse 00:00: st reaction 00 s to drug Codeine Propensi Active Rash Garcia ty to 04-29 Methodi adverse 00:00: st reaction 00 s to drug Morphine Propensi Active Other (See "MAKES ME [place] ty to Comments) 04-29 GOOFY - Method i adverse 00:00: NO PAIN st reaction 00 RELIEF" s to drug Codeine Propensi Active Itching, [facility] ty to Other (See 05-02 [facility] - adverse Comments), 00:00: Medic al reaction Rash 00 Center s Family History Family Member Diagnosis Comments Start Date Stop Date Source Natural father Heart disease [place] [facility] Natural mother Cancer [facility]ist [facility] Social History Social Habit Start Date Stop Date Quantity Comments Source Tobacco use and 2020-06-29 2020-06-[address] [facility] ethodist exposure 00:00:00 00:00:00 Alcohol intake 2020-06-29 2020-06-29 Current [facility] thodist 00:00:00 00:00:00 non-drinker of alcohol (finding) Sex Assigned At [address] [facility] ethodist 00:00:00 00:00:00 Smoking Status Start Date Stop Date Source Never smoker [place] Methodis t Medications Ordered Filled Start Stop Current Ordering Indication Dosage Frequency Signature Comments Components Source Medication Medication Date Date Medication? Clinician (SIG) Name Name traMADoL 2020- No acute pain 50mg Q6H Take 1 Garcia (ULTRAM) 50 1-20 01-30 tablet (50 M ethodi mg tablet 00:00: 23:59 mg total) st 00 :00 by mouth every 6 (six) hours as needed for moderate pain for up to 10 days .acute pain. traMADoL 2019-08 No 50mg Take 50 mg [facility] (ULTRAM) 50 2-18 12-18 by mouth. Me thodi mg tablet 16:40: 00:00 st 14 :00 traMADoL 2019-08 2020- No TAKE 1 [place] (ULTRAM) 50 2-18 12-28 TABLET BY Me thodi mg tablet 00:00: 23:[address] 00 :00 EVERY 6 HOURS NEEDED FOR PAIN HYDROcodone 2019-08 2020- No acute pain 1{tbl} Q6H Take 1 Garcia -acetaminop 09-10 11-30 tablet by Me thodi hen (Ponce) 00:00: 23:[address] 10-325 mg 00 :00 every 6 per tablet (six) hours as needed for moderate pain for up to 7 days .acute pain, Right leg painful ulcer. 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 Max Daily Amount: 4 tablets magnesium 2019-08 Yes 250mg Take 250 [place] 250 mg 1-11 mg by Methodi tablet 09:19: mouth. st 15 calcium 2019-08 2020- No 2001mg [id number] Take 2,001 Garcia acetate -11 11-11 [id number] mg by Meth matt (PHOSLO) 09:05: 00:[address] 667 mg 42 :00 (three) capsule times a day before meals. atorvastati 2019-08- No 40mg QD Take 40 mg Garcia n (LIPITOR) 08-2911 by mouth Met hodi 40 MG 09:05: 00:[address] tablet 42 :00 acetaminoph 2019-08- No 650mg Q6H Take 650 Garcia en -11 11-11 mg by Methodi (TYLENOL) 09:05: 00:[address] 325 MG 42 :00 every 6 tablet (six) hours as needed for mild pain, moderate pain, headaches or fever. albuterol 2019-08 2020- No 2.5mg Q.5D Take 2.5 [place] (ACCUNEB) 1-11 11-11 mg by Methodi 2.5 mg /3 09:05: 00:00 nebulizati s t mL (0.083 42 :00 on 2 (two) %) times a nebulizer day. solution polyethylen 2019-08 2020- No 17g QD Take 17 g Garcia e glycol - 11-11 by mouth Method i (MIRALAX) 09:05: 00:[address] 17 gram 42 :00 Hold for packet loose stools guaiFENesin 2019-08 2020- No 100mg Q.25D Take 100 Garcia (ROBITUSSIN 1-11 11-11 mg by Method i ) 100 mg/5 09:05: 00:[address] mL syrup 42 :00 (four) times a day as needed for cough or congestion . loratadine 2019-08 2020- No 10mg QD Take 10 mg Garcia (CLARITIN) 1-11 11-11 by mouth Meth matt 10 mg 09:05: 00:[address] tablet 42 :00 warfarin 2019-0 Yes 3mg QD Take 3 mg [place] (COUMADIN) 29 by mouth Metho di 3 MG tablet 00:00: daily. st 00 Lucila-Tenzin 2019-0 Yes 1{tbl} QD Take 1 [place] Rx 1-60-300 - tablet by hodi mg-mg-mcg 00:00: mouth st tablet 00 daily. Advair 2019-0 Yes 1{puff} Q.5D Inhale 1 [place] Diskus 9-21 puff 2 Methodi 250-50 00:00: (two) st mcg/dose 00 times a DISKUS day. omeprazole 2020-0 Yes 40mg Take [address] (PRILOSEC) 9-17 by mouth. Luke s - 40 MG 15:13: Medical [address] magnesium 2020-0 Yes 250mg Take [address] 250 mg Tab 9-17 mg by [facility] - tablet 15:13: mouth. Medical [address] [place] [address] traMADoL 2020-0 Yes 50mg Take [address] (ULTRAM) 50 9-17 by mouth. Zahida es - mg tablet 15:13: Medical 03 Center B2/vits 2020-0 Yes 2{tbl} Q.5D Take [address] A,C,E/lut/z 9-17 tablets by Denise kes - eaxanth/min 15:13: mouth 2 Med ical (ICAPS 03 (two) Center ORAL) times daily. warfarin 2019-0 Yes TAKE ONE [place] (COUMADIN) 9-14 HALF Methodi 1 MG tablet 00:00: TABLET BY s t 00 MOUTH ONCE DAILY atorvastati 2019-0 Yes 10mg QD Take 10 mg Garcia n (LIPITOR) 9-09 by mouth Meth matt 10 mg 00:00: daily. st tablet 00 pantoprazol 2020-0 Yes 30 MINUTES Garcia e 8-29 BEFORE Methodi (PROTONIX) 00:00: BEDTIME st 40 MG EC 00 tablet metoprolol 2020-0 Yes 1{tbl} 1 tablet. [place] tartrate 8 Methodi (LOPRESSOR) 00:00: st 100 mg 00 tablet antiox.mv 2020-0 Yes 1{capsu QD Take 1 [place] st[place] no.10/omeg3 7-08 le} capsule by Wi thodi s/lut/michel 09:50: mouth st (I-CAPS 13 daily. ORAL) cyanocobala 2020-0 Yes 2000ug QD Take 2,000 Garcia min 7-08 mcg by Methodi (VITAMIN 09:50: mouth st B-12) 1000 13 daily. MCG tablet diclofenac 2020-0 Yes 4g Q.[id number] Apply 4 g Garcia (VOLTAREN) 7-08 [id number] topically Methodi 1 % gel 09:50: 3D 3 (three) st 13 times a day. Right shoulder and left hip (lateral) doxazosin 2020-0 Yes 2mg Q.5D Take 2 mg [place] st[place] (CARDURA) 2 7-08 by mouth 2 Me thodi MG tablet 09:50: (two) st 13 [...] 2020-0 Yes 1{spray Q.5D 1 spray by [place] propionate 7-08 } Each Nare Meth matt (FLONASE) 09:50: route 2 st 50 13 (two) mcg/actuati times a on nasal day. Until spray 09/16/2019 @23:59 ipratropium 2020-0 Yes 3mL Q.25D Take 3 mL Garcia -albuterol 7-08 by Methodi (DUO-NEB) 09:50: nebulizati st 0.5-2.5 13 on 4 mg/3 mL (four) nebulizer times a day. budesonide 2020-0 Yes .5mg Q.5D Take 0.5 [place] zeynepn (PULMICORT) 7-08 mg by Methodi 0.5 mg/2 mL 09:50: nebulizati st nebulizer 13 on 2 (two) solution times a day. febuxostat 2020-0 Yes 80mg QD Take 80 mg [place] (ULORIC) 80 08 by mouth Meth matt mg tablet 09:50: daily. st 13 omeprazole 2020-0 Yes 40mg QD Take 40 mg [place] (PriLOSEC) -08 by mouth Metho di 40 MG 09:50: daily. st capsule 13 primidone 2020-0 Yes 50mg QD Take 50 mg [place] (MYSOLINE) 02-23 by mouth Metho di 50 MG 09:50: daily. st tablet 13 calcium 2020-0 2020- No 2{tbl} QD Chew 2 [place] carbonate 02-23 07-08 tablets Method i (TUMS) 200 09:50: 00:[address] mg calcium 13 :00 (500 mg) chewable tablet folic 2020-0 Yes Take by [place] acid/vit B 08 mouth. Methodi complex and 09:50: st C 12 (LUCILA-TENZIN ORAL) cholecalcif 2020-0 Yes Take by [place] alvarado [place], 02-23 mouth. Methodi vitamin D3, 09:50: st (VITAMIN D3 12 ORAL) traMADoL 2020-0 2020- No acute pain 50mg Q6H Take 1 [place] (ULTRAM) 50 02-23 07-18 tablet (50 M ethodi mg tablet 00:00: 23:59 mg total) st 00 :00 by mouth every 6 (six) hours as needed for moderate pain for up to 10 days .acute pain. vit B comp 2019-2020- No 1{tbl} Take [address] no.3-folic- 3-25 03-25 tablet by Denise Kate-biotin 00:00: 23:59 mouth. Medica l (LUCILA-TENZIN 00 :00 Center RX) 1-60-300 mg-mg-mcg Tab temazepam 2020-[address] (RESTORIL) 3-20 [facility] - 15 mg 00:00: Medical capsule 00 Center warfarin 2020-0 Yes 6mg QD Take 1 [place] (COUMADIN) 1-14 tablet (6 Meth matt 6 MG tablet 00:00: mg total) s t 00 by mouth daily. loratadine 2018- Yes DAILY [place] (CLARITIN) 2-20 Methodi 10 mg 00:00: st tablet 00 atorvastati 2018-08 Yes 40mg Take [address] n (LIPITOR) 2-03 by mouth. Z[place]ida es - 40 MG 00:00: Medical tablet 00 [place] warfarin 2018-08 Yes 4mg Take [address] (COUMADIN, 1-27 by mouth [facility] - JANTOVEN) 4 00:00: every Medic al MG tablet 00 [facility] 2018-08 Yes 5mg Take [address] (COUMADIN, 0-25 by mouth [facility] - JANTOVEN) 6 00:00: every Medic al MG tablet 00 other day Mika varma Eusebia acetaminoph Yes 650mg Take [address] en 8-19 mg by [facility] - (TYLENOL) 00:00: mouth. Medica l 325 MG 00 [place] tablet allopurinoL Yes 100mg Take [address] (ZYLOPRIM) 8-19 mg by [facility] - 100 MG 00:00: mouth. Medical tablet 00 [place] docusate Yes 100mg Take [address] sodium 8-19 mg by [facility] - (COLACE) 00:00: mouth. Medical 100 MG 00 [place] capsule lidocaine Yes 1{patch Place [address] (LIDOCARE) 8-19 } patch onto Zahida es - 4 % patch 00:00: the skin. Med ical 00 [place] docusate Yes 100mg Take 100 [place] sodium 8-19 mg by Methodi (COLACE) 00:00: mouth. st 100 MG 00 capsule metoprolol 2015-08 Yes 100mg Take [address] succinate 2-04 mg by [facility] - (TOPROL-XL) 00:00: mouth. Medi agus 100 MG 24 00 Center hr tablet metoprolol 2015-08 Yes 100mg Q.5D Take 100 [place] succinate 2-04 mg by Methodi XL 00:00: mouth 2 st (TOPROL-XL) 00 (two) 100 mg 24 times a hr tablet day. Hold SBP <100, DBP <60 HR<55 Vital Signs Vital Name Observation Time Observation Value Comments Source Heart rate 2020-06-15 11:07:00 66 /min Jose Sepulveda Body height 2020-06-15 11:07:00 188 cm Jose Sepulveda Body weight 2020-06-15 11:07:00 112.946 kg Jose Sepulveda BMI 2020-06-15 11:07:00 31.97 kg/m2 Jose Sepulveda Oxygen saturation in 2020-06-15 11:07:00 95 /min Jose Sepulveda Arterial blood by Pulse oximetry Systolic blood 2020-05-05 14:50:00 159 mm[Hg] [facility] Diastolic blood 2020-05-05 14:50:00 76 mm[Hg] [facility] Heart rate 2020-05-05 14:50:00 79 /min [facility] Respiratory rate 2020-05-05 14:50:00 18 /min [facility] Oxygen saturation in 2020-05-05 14:50:00 97 /min [facility] - Arterial blood by Medical Ce nter Pulse oximetry Body temperature 2020-05-05 14:00:00 36.61 Katerin [facility] Procedures Procedure Date / Time Performing Clinician Source Performed AL ARTHROCENTESIS 2020-09-07 10:50:00 Barney Flores Me thodist ASPIR&/INJ MAJOR JT/BURSA W/O US AL ARTHROCENTESIS 2020-06-29 08:40:00 Barney Flores Me thodist ASPIR&/INJ MAJOR JT/BURSA W/O US XR CHEST PA OR AP 1 VIEW 2020-05-05 13:49:[address] [facility] CHEST PA OR AP 1 VIEW 2020-05-05 11:52:[address] [facility] 2020-05-05 11:29:00 Thaddeus Hernandez [facility] CT NEEDLE BIOPSY LUNG 2020-05-05 11:27:00 Thaddeus Hernandez [facility] CBC W/PLT COUNT & AUTO 2020-05-05 08:27:00 Roslyn Nickerson [facility] PROTHROMBIN TIME/INR 2020-05-05 08:27:00 Roslyn Nickerson C [facility] APTT 2020-05-05 08:27:00 Vesta Nickersonleta Murphy [facility] XR SHOULDERS BILATERAL 2020-02-24 09:53:58 Barney Flores on [facility] AL ARTHROCENTESIS 2020-02-24 09:30:00 Barney Flores Me thodist ASPIR&/INJ MAJOR JT/BURSA W/O US Plan of Care Planned Activity Planned Date Details Comments Source Future Scheduled 2021-03-19 INFLUENZA VACCINE [place] [facility] Test 00:00:00 [code = INFLUENZA VACCINE] Future Scheduled 2020-04-19 INFLUENZA VACCINE (#1) [facility] Test 00:00:00 [code = INFLUENZA Medical Ce nter VACCINE (#1)] Future Scheduled 2019-08-[address] [facility] - Test 00:00:00 (12+) [code = [facility] DEPRESSION SCREENING (12+)] Future Scheduled 2003-01-[address] [facility] - Test 00:00:00 WELLNESS (YEAR 2 or [facility] FIRST YEAR if no IPPE) [code = MEDICARE ANNUAL WELLNESS (YEAR 2 or FIRST YEAR if no IPPE)] Future Scheduled 2002 PNEUMOCOCCAL 65+ YRS [facility] - Test 00:00:00 (1 of 1 - [facility] [id number] PCV13) [code = PNEUMOCOCCAL 65+ YRS (1 of 1 - [id number] PCV13)] Future Scheduled 1987 SHINGLES VACCINES (#1) [place] [facility] Test 00:00:00 [code = SHINGLES VACCINES (#1)] Future Scheduled 1953 COVID-19 VACCINE (1) Soledaddavid alvarado [facility] Test 00:00:00 [code = COVID-19 VACCINE (1)] Future Scheduled 1947 DIABETES: RETINAL EYE Ho [facility] Test 00:00:00 EXAM [code = DIABETES: RETINAL EYE EXAM] Future Scheduled 1947 DIABETIC FOOT EXAM [place] on [facility] Test 00:00:00 [code = DIABETIC FOOT EXAM] Future Scheduled 1943 65+ PNEUMOCOCCAL [facility] Test 00:00:00 VACCINE (1 of 4 - PCV13) [code = 65+ PNEUMOCOCCAL VACCINE (1 of 4 - PCV13)] Encounters Start End Encounter Admission Attending Care Care Encounter Source Date/Time Date/Time Type Type Clinicians Facility Department ID 2020-10-24 2020-10-24 Orders Doctor FANTASMA [id number] 00:00:00 00:00:00 Only Unassigned, LEODAN [id number] Pike [facility] [id number] 2020-10-11 2020-10-11 Transition Shereen Morales [id number] 00:00:00 00:00:00 of Care Berta Castellanos [id number] Saurav [id number] 2020-10-04 2020-10-09 Emergency John Bobo [facility] 1.2.840. [id number] 09:26:00 08:47:00 HareSridhar cronin [facility] [id number] Tracey León [id number] Sridhar [employer] [phone] [place] [id number] ([facility]) 2020-09-07 2020-09-07 Outpatient BARNEY FLORES [facility] [id number] [place] 00:00:00 00:00:[address] 2020-07-11 2020-07-11 Outpatient JARRETT [facility] [id number] [place] 00:00:00 00:00:00 AMY [address] 2020-07-07 2020-07-07 Outpatient JARRETT [facility] [id number] [place] 00:00:00 00:00:00 AMY [address] 2020-07-05 2020-07-05 Office Meagan Hernandez [facility] [id number] 11:30:34 14:14:33 Visit Sae Allen [id number] 2020-06-29 2020-06-29 Outpatient BARNEY FLORES [facility] [id number] [place] 00:00:00 00:00:[address] 2020-06-15 2020-06-15 Outpatient JARRETT [facility] [id number] [place] 00:00:00 00:00:00 AMY [address] 2020-06-14 2020-06-14 Laboratory Lab, [facility] 1.2.840.114 [id number] 10:22:08 10:42:08 Only Fam Pob I Health [id number] [place] [id number] Professio [phone] [place] [address] [address] One 2020-06-07 2020-06-07 Office Meagan Hernandez [facility] 1.2.840.114 [id number] 13:07:47 15:00:57 Visit Eddarlin Alejandro [id number] 2020-04-01 2020-04-01 Office Meagan Hernandez [facility] 1.2.840.114 [id number] 12:57:56 14:08:33 Visit Eddarlin Alejandro [id number] 2020-03-11 2020-03-11 [facility] 1.2.840.114 [id number] 00:00:00 00:00:00 (Out) Khanh H Health [id number] [place] [id number] Professio [phone] [place] [address] [address] 2020-03-08 2020-03-08 Telephone Pob1, Acute [facility] 1.2.840.114 [id number] 00:00:00 00:00:00 [facility] Health [id number] [place] [id number] Professio [phone] [place] [address] Office [address] One 2020-02-29 2020-02-29 [facility] 1.2.840.114 [id number] 00:00:00 00:00:00 (Out) Khanh H Health [id number] [place] [id number] Professio [phone] nal 044 Office Building One 2020-02-25 2020-02-25 Laboratory Lab, Adc [facility] 1.2.840.114 [id number] 10:58:24 11:18:24 Only Fam Pob I Health [id number] [place] [id number] Professio [phone] nal 044 Office Building One 2020-02-24 2020-02-24 Outpatient BARNEY FLORES [facility] [id number] [place] 00:00:00 00:00:[address] 2020-02-24 2020-02-24 Outpatient MARK BARNEY [facility] [id number] [place] 00:00:00 00:00:[address] 2020-02-08 2020-02-08 Office Link, [facility] [id number] 12:40:48 16:00:35 Visit Johan Nevarez AMBULATOR [id number] Y [id number] 2019-09-09 2019-09-12 Inpatient ALEA, [facility] [id number] [place] 00:00:00 00:00:00 WILI [address] 2019-08-23 2019-09-01 Inpatient MARSH, [facility] [id number] [place] 00:00:00 00:00:00 TIFFANY [address] Results Test Description Test Test Results Result Source Time Comments Comments Large Joint 2020-08- Barney Flores MD [facility] n Arthrocentesis: 20 09/07/2020 12:36 PMLarge [facility] shoulder, 10:50:00 Joint Arthrocentesis: Bilateral shoulder, Bilateral subacromial subacromial bursa bursaPerformed by: Barney Flores MDAuthorized by: Barney Flores MD Consent given by: PatientSite marked: the procedure site was marked Timeout: prior to procedure the correct patient, procedure, and site was verified Indications: PainLocation: ShoulderSite: Bilateral subacromial bursaPrep: patient was prepped and draped in usual sterile fashion Ultrasound guided?: No Needle size (left): 25 GNeedle size (right): 25 GLeft side approach: AnterolateralRight side approach: AnterolateralLeft side medications: 6 mg betamethasone acetate & sodium phosphate 6 mg/mL; 1 mL lidocaine 10 mg/mL (1 %)Right side medications: 6 mg betamethasone acetate & sodium phosphate 6 mg/mL; 1 mL lidocaine 10 mg/mL (1 %)Patient tolerance (left): Patient tolerated the procedure well with no immediate complicationsPatient tolerance (right): Patient tolerated the procedure well with no immediate complications Right shoulder Barney Flores MD [place] cortisone 06/29/2020 9:43 AMRight Orthod[facility] injection 08:40:00 shoulder cortisone injectionConsent given by: patientSite marked: site markedTimeout: Immediately prior to procedure a time out was called to verify the correct patient, procedure, equipment, instructional support assistant and site/side marked as required Supporting DocumentationIndications : pain Procedure DetailsPreparation: Patient was prepped and draped in the usual sterile fashionUltrasound guided: noLocation: shoulder - R subacromial bursa Right side:Needle size: 25 G (25 gauge)Approach: anterolateralRight shoulder medications administered: 6 mg betamethasone acetate & sodium phosphate 6 mg/mL; 1 mL bupivacaine 0.25 % (2.5 mg/mL)Aspirate amount: 0 mLPatient tolerance: patient tolerated the procedure well with no immediate complications Shoulder left Barney Flores MD [place] cortisone 06/29/2020 9:43 Methodis t injection 08:40:00 [facility] cortisone injectionConsent given by: patientSite marked: site markedTimeout: Immediately prior to procedure a time out was called to verify the correct patient, procedure, equipment, instructional support assistant and site/side marked as required Supporting DocumentationIndications : pain Procedure DetailsPreparation: Patient was prepped and draped in the usual sterile fashionUltrasound guided: noLocation: shoulder - L subacromial bursa Left side:Needle size: 25 G (25 gauge)Approach: anterolateralLeft shoulder medications administered: 6 mg betamethasone acetate & sodium phosphate 6 mg/mL; 1 mL bupivacaine 0.5 % (5 mg/mL)Aspirate amount: 0 mLPatient tolerance: patient tolerated the procedure well with no immediate complications Tissue Exam 2020-05-09 14:34:00 Test Item Value Reference Range Interpretation Comme nts Case Report (test code = 104) Surgical Pathology Report Case: [id number] Authorizing Provider: Thaddeus Hernandez MD Collected: 05/05/2020 11:29 AM Ordering Location: [facility] Radiology Main Received: 05/05/2020 01:11 PM Pathologist: Melchor Martinez MD Specimen: Lung, Left DIAGNOSIS (test code = 3220) a9wknDMdMCZlq5bkPSLvpPOhEiOlIoHzGaIwFu p adALlZPyjswXqMKyvv4MzW4ImCyXeOQkxvwHbIG HaSaykevnsXXXfFEU1dbIeQBViGPwoIVDyDJoiZ s5veCCapQskUgMkCCHqo2nketMFpzfbaUo2p1xo BDZiGfV9fXAvLXtoQ0fbocArfOJhDANoKEb9iR6 6UGDwnF6zoPEsZQiulrXnUcB5PXfwIWHkRdR8PK WenOPqHTGuG8frZYVyFUfuYPEeSNlhgBFeXGM9m Petx1S9nQHcnPHayLvqQtNqFvOpMSSGf5ZsZEq4 aRrlC3FwZDSoGlX8oJHbFFWlUCeeCEQkZWPjghO 6lW50WGdvkzV5rFAbv5Nbk75nd222qI0ahLEgBO W5FQJwHSCkxCJjVRYoKFY4XJGykKJrK0b9MgZys RIiD4S0JvWwnQJgG0Q0NvVcuXMpX5F8OnCviSUf CTZjtWReWn3dqZFsdKIotu9dax39ZUB0u2LwnSi uYBM9ETO8CyAlWa9bkLBxKBEdXP4bUkLxxMJdTK Musg99aDbcAYqmoqXywO0fUoNsWLLbbMQmIIQxZ Q9pxRJuKIKosK6urlsyHTSvLfDhzudxWQVunMtt zqOaGn8ecKlaIFM9FPwaX2lcoA4nIhW5HAreT9v pkP2bRMr5UOmedMF8FSTtbJ2tLW4dwzdvy4faXm ShUP3nwvwqk1ndIfAnTU6xaru8n8lzEeJhHQ1xx omsr1bdJdEbULmsQBYiadezFLMpx3RfzyjkFMPo f4LkL7NslPyyV05nhRcbU44yFDSodZskeJ3oeTw ohI1qAcZaLiPnFObbgLnkfZTihthvEBbtyzNfZM yhhxnuKPBrGKbmT8dlSyOfZAUbhAowYIhcv4OmA JLqYYNhKbTdPFJJGatoAUEJSUqlVohSYTRGBG5J IQ1UKPXGHtsoXEZqMMVzM81DM2fLCXLVJGVAKZJ ZFL8ISLEYGBMXIRPaDzTRWWucO3QYY1wWZ77VZK Yoqq02ZFU9MgOfk9U9WLK5YJLaJKGyj4reAVKyl AYuOcJgIwJaWiTrYgmmkWLfPMZdLkGvy2mot788 nEBar8ktXEIaSjW8wVTmURDakCBvC496HDYeOTy ky9utu5VdNIMukHLmj0E7OHVSowvqyUf8yIwnC9 8px1D4IftgK0kdNJUjWDYmD7UeUP7yHBVtRke9W VX2NVO6XXLiTZNlX0NqNJ6mNBFazLKmSMg4a1kb jZnlZGRsGBZ0x0flQQqkyqAsOW5xkt4gjLv1q8s ejmElUKWlGVCisILNLSSzR0ZtzJgtLl8lfYe8lA riLlspYMV6Ubx5FG8uli44hhi7aHukMDZsiwczC dC9ZHlyPMHsiimwFDq3GMaqXPIqrJC4AKYnxRUt G3JyPTSsYN0rmxz4SJQ7ODmnSGInEuE8MJRhsGY fMXRchYzkCPuuz322NJJ7RbZsKA9hJ2Bvp1N1wI 5drISkWVEgeQGlUwYrGBItuv2gmEStMPrxp6ZkI JY0uxX5yTVklQYdRASeEnH0SIdgJK1kst83FAXb ENU5ll9nyRDvfJcmndBcoOUjIKgrQ6NdCDSrw22 1DJBiK1AoPFAqu5T5cjFsEyKxRPHkaZC0qmY5RD PsBF6jtvtrz3nzEGoxRVznDFUnqvD3viQ9VIRbw JUpB6UhmM1bVZStSU0xflhrl0bdAUC2ZImxAEQt NLG3NuRhZUSbz5Clzmv5BkKah0HlhWPgUXmgM05 hm872KWGbbaWoD9xlkFLmjkirzEPklhkeESyhna K6WKGaVFolusftBLHhTIdzQ2kmDhPcEXPwnTojZ Zkdn1MlNXWiEUReEbTekATsBEScWvz6AZMkjHAe TFIjFrSrQ2rrczvjSfQEDMPnd0ewH5oaxIUYsSY yW3KeCPmyvbWkEGwuJQriKDZdIXP0WZ90QPofKK Bhcn19 CPT Code(s) (test code = 3357) o9ooyDMwYKMjwTOmCqMjXQNmCSWkt8ieITFr bGF aAgPhKaKrJiMxUmcbwPBdZYOoKgKmk6pvo990iR Kti7tcUICjAjR9hPFsCSVgkXTxV985UONyUVgek 6lbr5OxIWZkmFXmo2D9TDIYhmpsfZr2jCakP47a k0F1HuthA7gmYEIjXSThU3MhCE3cEVQiWkw8AHR 7SNS8MXZfNQBfR8EmKB4yUJKwvTVlEKg1d8ooaL ikJBGyCXI8t5frBPqrdwWcNB7chs2ssDs5j0jux fVmBNGdSQSchVZMSQHyI8XszIbtRk6jfQk6fPsy YioiVFI6Lwj0VI0rao31sut2qHgeDYWobkkfSbW 3ZYygMMGkqjrkWVm8TXtvGQWpvOuwKMniBXEmij yzMEraMJKqlZkgWAntSPPhRwutJQcwBCQuURH9T Oofm812LPN5ATjyn8pvu3ngoDRiFvj9HIKyZxKw SpriLLbjs7Min6soQKBmdb6nTVU1sVNoyCrvv9P 8vTEtRXKmyDKbhxNzLRBzBcJ2ODqwHQ7txt73LN OuKWP3os9frMWrsEofkqWwhCLcLRlzP2EyCTJuf 383TGPvH6WcGQYou0P3giZuJvFnDXJsvMI6igV2 YOMyEJd5dSAblqC4nbIjqHJsG1dlvJ33AyKcwAV jD2GfxD88UqUicYTpF6VguY97KmJkpIXmM6ZkiB 11ZhMovIZgGUVfaBDdDa2rwUDftVBwh9NrjHSqW OtjL31hi735ODEofjJmY8elrDXgbhkaqPGsybcf UAtxgmW8JVSfVPRvTVolPONbDXTfPxOimRDtAxE eUhFieKxftEtaUHkyDyShWTBwODowF5ssAmDiFj GyVME1MODmTAuiSFykNKZlXHg6YsYlGUflGVphY XJ9 CLINICAL HISTORY (test code = 3356) w3gyuGOwHIEdeOKrHyXrINVeWYAlu4n cZGVmbGF zNiWiGqBrViMpLbxjkFBqSKTaNmMgz1bbj316oV Fxx9siOAHzEfJ2rRLkSRIrgNWsJ465l0gvd4rac kWfhXQ1OTZiXFN8SQaqrfRrxvR3LFgsmQOuVjE6 EQefykYaJGipvhKlnbYgHfo0RTOvY308BXF2rAc xh1pxMGQ6AAFlNNTyZxEeQl9bwOUoX272MTCnGS IPXYBvzFp3VHUocbGskcXkrTLHu058Q827w0vdI EDkqbXdbYuLsiyit4oeT127ARFjgKThyvDrFgFc PMGhmZBfyDP6STPdZJ0qlfbhQlHtFA0cmrtaXzE dJH6hivp5SxAkTG1obrflMoMoJTtaXCWhxnuzLH Gfb1QesdqyQN0hX7Bmh3Y2mN0xyMQcIVRctGZkZ iFhGLUzdk2wnOSeLHyar3RzRIG7tdB4nARwvXGx ARBkJM30Ziabd9TeGwzhEVE9MNAohxIru8Rty2d rFqHvrdDrU4srK8TgXHDbFJYwMHKdMjBhwfFji1 Ynq5NqrUUkhVf2b1beXJTsPCRzkYrqu4ikYGQ8R OZhJ9R8hRGab7kcHPcgFFWdnTL7dpjsFXwtZUKw fhY5wjiuOGzeUFJkiHO6oeciGTmlOUTmPwG7mkn cGBaeDOWpRBM3IStgg658DXF3LHhcYokjSHxdEO BnbmNvbnRccGduZGVjXHBsYWluXHBsYWluXGYwX FUoJeLrtNfrfRvknW6cXvVkYwUqNNxtTN4zXTDj Q0flrNAhBPKaUOUtJ9iiDzHgoC0pxHmiJXweaaZ iRWVdhjDeCRHyoQxlZ3RkO4osy74xOGObw7TiS6 ahzFCsVKzydYHdCZzxvOlacACwEGd2vmpqvi3nx NqbOPBsME1mo45kzW3wU5zcPiJsaWEntNYreFMl fQ== SPECIMEN SOURCE (test code = 3377) s8anrUVbDRSapNQzGeLiQYWfVBGkt2sl ZGVmbGF pXpUeTtDsPtVvJluutRDjWHKgQdBqz6wyt509gC Fue4rwQENtAzE7xIYoUMWorGSnR824k4sys9uzj jFfvXQ1ZNUdGQS7OPknbmDibxB3JNpgfEZmJjX2 QJnsmbUkTRkoncRzxtMuEeq9XCXlQ835NBH3jHr iq2okVPC4CHHuHELlQtWzQz6tpUEsK236LXUeOK AONOKifAn5IJWacxWsmbFxgSTBq502B536l5esW DMgihAuyXrHwodyq9saG882ECLbcAWayrKqPoIg RDZeoFXowRE5AOAxCV0ertxcDiEiZS4vprzbTcN nES7ghbi3SrSuTE1frukbMqGjPXdfZHHoxfezXP Bju2DdtoruZM0kS0Chk9C1vW3qqEZqILYpzZOrZ vUzGJYuxx5wiTLtAJhny8XeZJQ4gmL4iCTgdHQr SDFwVH60Yqaub2AoPxrcKCW1XUBqebNxp2Kxq4p yNmShzjQsI2mcN6KrKMUpUFXoKGBxExWkwgOsj3 Lgc6BifSLpoDj7q4xbDRTfJFWyaEhhp0reDZI8N MGpB0Q7iOAte9ezWXgoXSEdqBX3flkkPFlaWMQg dtI0enstPKdcBIPbkVR2qqybIGjvRBTtGhJ1jjf fXLqbNPQgWSL0YCdby222LKI6VLheNaepENvgXJ BnbmNvbnRccGduZGVjXHBsYWluXHBsYWluXGYwX ASlZlAkuZkoiDfcpZ0eMiEoOyXgZWedKB1eCKFj T7cupYNqROTkZIZoI1prFjFcgM2dmFncDLbsjzN oLQe2euomVNkrAkZpgPTwaY== GROSS DESCRIPTION (test code = 3366) j6wgnLInPXEoyUYcVmFmHIYyQMKor7 lcZGVmbGF aXkFvVqSeEkTaNbxkeVStRLZrHtLwq4bkv265lS Ptn4ieWPRvAtH0wITfZDNhrTEtK374g8mrr0red cXwgLP7RUZiKYT4KCtamkRvccZ1UGfeiWYzTkY1 CFoizqRwTYuzmnUsacRuRxe6HPIgN355DHG1aHh so4sgGZF9GISoASIsYjOdLo0mlKVjA476WXSeTF NIEBRcuCh5ZKLkovNwodVzpTGHm262L954h7pqH ACzzyNjyRgRwjgku8kzU737ZIXqfWPnfsPbZzKs GSJczOJhxKS3VJGpTI7cynoyPxCzRA0aqytjWfS tWV1dhjy2LkCeEZ2sunqvEcZcYVeeSUUsyobjGE Omi3NapxfcST1kE2Ivs8S2tL0gfREkLWRfqABfD tIgQRAuzq2uyFDeYAiwc8HyEID0yxU3hLBkxYVt JFYeRC23Wshir3ZkJeryVEQ1BTPhnvUbw1Atp1j gRfChdgMhV6maX9UjYJSaJYSdQDOgCsWicpSyc5 Blz9AabCZfhDs3l8kfZOUvKFCbwRwpl0suXVJ4X VTiH6Q4fDJyu3qkJDppIGLzoIN6raqgGRmbXURf wnZ2mjykJZbkSEFhvMG0lubsIMhrVOWnEsP5egv qANxpJGPbLOT8ULcoq129KAZ9TJdlEqiqYNkwPN BnbmNvbnRccGduZGVjXHBsYWluXHBsYWluXGYwX YEbVvVpjPmekWtihJ7mKuUzSiDeSCqgRA0qVLCh J4wgpQOgVGLeLVYmK2pcZeLrmE9csTakKMllemA gSRBdegKrZOPfVQFniFFhDFDulbReb3VsALfvyw BsYWJlbGVkIHdpdGggdGhlIHBhdGllbnQncyBuY F9oSWYfLWViL2ZeIRCeR65cBGAsuN5xVAKvAO3l QLGggI6wTKVjINI7NcLmtyMijMivQZPjca99hCs 7PBLbl3LddcBkVtQhi0B7TRRzj2C9ENAdAJMrtS WogjkoMN00YBrmDA8xHQkzYC3zNILjJEHaSLLpM uEekQXrAnIxuQKpSeTuX32gIQTuIEVdkTLhfM6k jcZqjlNcrHLslDH9PAStkL5vaC82saUdhqXERI7 gQUEvZXdccGFyfQ== MICROSCOPIC DESCRIPTION (test code = f0nppDQrEICguUYiZhZmUXZoOAGci5 [facility] wFpWlGkKzKaUvMgswhXLbOEFzOvQoe0ctu887tH Ith0mvQPRnNwI2sVBuPLLfdZImC304c6bko7xsk cDxrOP7UWRmMVP1MHxfoqGnjbF6SKfjdHKnEpE3 YAxbatRaNJjhngMmjaKuChk2KARmW238POX9oGr ir0fhYUJ6SKZeXQAsTuZrCk7xoSZnL139RDMhUV RQKGOfjNx4BLFuusYqvhIhjNHFb071L936m9twA FJbeaGexVfEdnkea6uyX266GVZdfEPurbUnAgQc NDLnxYHrmXE7WNMwHU0arhsjMkAiVR7lpxuyBuM hBA2xjrr8EqBiHY0iwnvmFdPqQBzfQMMdjccjWS Fng3DrunywTO5uL0Afg3T8fU2lsAGiHSUszJGuL fFfBLCvon6fpBQqEJlqn8AdPAL7ocF1yFXhjTXe HZHmRC02Zujsh8UbBwlaMFV6DDKykwNag9Nnw0t uRrAcjbSdP3uaS9QvYMIzSQKkGHYaYqMrbdBlo2 Mbx1WqoZOkgCo9a5rqEIQpCJQisDwav6zrTEC6I DVzA8U0rBNqx5scOQhxZDJikUD6gekmKVgmHOGl hyK9damcXFzqRCEokYQ6hweyFOpdQWGjSaJ5cgi xGYzjGONnATC2WHnih907WTE2KSkfFnqcLJjgZG BnbmNvbnRccGduZGVjXHBsYWluXHBsYWluXGYwX QKiMbXkyXwptMrpbM6wUpOjVpLmQOrjSI2kUZNp L4cfdHRmNBAoBMNlN8ueGdGayN2jbUktXAdcswR lUYOxdjYeyb7xLD7xfOPxtL== SPECIAL STUDIES (test code = 3376) l7efsELjGXDmcZYqZkUdMHKcVBCfd3ed ZGVmbGF mHhXoMvCbFaOkDmaraEGnFYZeKlIbb9tyy243sE Odb6ziZKAnUnJ1nEXqXPKgwCRuT955AWPgMOock 7toe1HeAQLxiRPjb2H1CFSVUTlmZrDvB401ZUYq DZnaz1oke8QdZXCrdDCpj9D6JSDAefichDf3rVh kT25nq0R0NvlxM0isWPQsKPCiO3GoUQ0sJSKxDj m7ENV9VNT4OVVpMZKdL5QrWN4kZRSccMNxTYq0x 8qfkOuvIKIeEZQ7u0arLCbbfbI2BL5lno4uaGj8 l0ecziPyEPSsYTTpmOYWTUEjE5UslBhlDc4ypYl 6k5odTnsdcyB5rNJzMbVbZzTzAIfycCRjdjvyXA ZkFCV8uBRCXRt2Z045p1bvFSSwklHfyWnMxavvc 0jgN681UPCipPJfggYgTyNwBWCvgAFbkMP1NHNu NV9cdlfxBkKpYP3hjrxdWeRoNG4wmoc0EgSpFO9 dhjsvDxVnNEkiGTWwpfhzMAQji9WwvihqGG0sD1 Nbr9V1mJ2qbGClLWCkbZFiImWuQYAbnq3jfXDmS SexLHY3HGOqqjTus0Xjy2ekHfPixzUxM3hcO7Ze ACNtWAQqOIVjAiBejsLzr0Fkt7DbqWWhuWc2q9i lNLMxQUOikMyaa9wwRBK5IZOxI5Q6zUXse7jeKN cfTDKhmQB5ubiyJScxSJCqydS7hywmVOtjWGRxf AN4abxyHCqbRLCaIyL2oivnOQlbDDYrGYL3YDez h669CWF0HSdkDbmjWDgiOZHqwsTekeHxkUilLPP jXHBsYWluXHBsYWluXGYwXGZzMjRccWxccGxhaW 4gOcEiXxTaXjtiOU8uMJVcC7szkJAiEQBwEONlY 0tqYpRszS6moNsrEMieWeAnUlNnFfIBpTPhwH80 IHPyfdQ2YAHcl06zd8CkaBpwbtSqGPYmYVaqY0s 2QUPkGRRaIMZ0g1Veh2LjwC4mhQ2izOvzeY0oeP FkoJE5dgcjb3Qfu7NxE9ubqKHwrBRuzrQpRAAuC WluXGYxXGZzMjJcbGFuZzEwMzNcaGljaFxmMVxk HpWnBIDeFLobE6hnXkMcK7HzSHBmAbHwlSHjI4g ccGFyXHBsYWluXGYxXGZzMjJcbGFuZzEwMzNcaG fzrCcaXKygDeZjFFUqBTwbA1jtPuRlO2GsVLPnR lIiQ7w2MC7xL3F9dVYbHQUxhdLPOSUaVA6yC9S5 aXZlXHBhciBQNDAtbmVnYXRpdmVccGFyIFJDQy1 xBKUqgNfhkVQqYZILOUskrF1yqVCdsrDnaVNcGN FujzXfl9cbI0osLEXmBLI5UV3eosSkHeFqEH4il T16b3Vbc04zi64mxU0yvKWsryIoT52zgKCybNTc m1BwKNZhosWggDJ6CZUkLXnhxwqox6w6lOJ3tZC bsWBjjXA0cYSjeJZpZIDDqUIkKKFrj372fq7rYR UitIVsgePuxA5tIHejqozqrJVgCL0wCBLnOZDhL SZyFD64yaGkUC0ydFOsp2mebbVyzYJxi4AsjMM5 LDFdwWMvrzufTg5dGK88YPVmENxfpS7blTXbxzV uUA9zEE1dE7L6dUSiGNZycnDwm1ulWStiLX7zEU GdpOvlXmafCBRfUAXlmfFclIT3VKGguCpuqE6sK uEpTmJmRcwxVK1iTUUrC1mbsZXrUGIpEKWuC0va CsWylM7auInzQIlzNrKjKaAoMhntyLAxeAprOUY xcNphdQ3yJtYmXtEpJigjSB6iMYLkK1myxCHlGH NoHPQrQ6iyUoJczS6buHwiSAnfFtDlGbPxUvJaW HBsYWluXGYxXGZzMjJcbGFuZzEwMzNcaGljaFxm DBpyFsVeCTTpXSvuH7bjVtJfL8QpOCVnTrUgzWG cA8vkkORrEOBoJAofBERoIHKhPpHrpFIfCvXpLu ZwgPdreAgbTSfyFcYyFFEzWUgfU4onEfBaK7SrU NUfRyPqQE6ofF1ehGoniR4ieYSyhSQ4ltinfZQv fV6aE1GyOIHmd2Wpmwxkc5PzCXVxexIzup7wXVQ pnDXBELili2SnC3MyGQc4d4PlwKendC5cAhTiUk UwPudxZM4vUXNwP7udpICiZOYgGEMvH9czFlNee F7wfKbzRZrsFkBfAnObFyv9LEQgXcRxUovgNKWn YWluXGYxXGZzMjJcbGFuZzEwMzNcaGljaFxmMVx nDvFhUDYsDLmqZ2meKzGhT0NpBQDiMbNhxtZBMX RuV7JbZYTwuvFjgejgXBN4hU8ay9v9KQoiMl4pJ ZCfnkpym0wfozQloRRle7BkYNQzziVnl6EnEOIz nyTosLXgAHDaxsOkau8pymHrBAYkDZYcB5Zpbpg zeFtqvqO2KOGkAMXulXFshQzbNOUpABl9TPdwso Hxn0IdNjRcjeEepBMoatBtDQ7qBCNwvLOsfwBnC VC8AWEiUBGRZoHtWFNpj3JtYH5dYLVpzWejAUGg eC4xp7DoWPUjf36kZNBhHEFVPEMiqFSzUJLkvDP sqFuyHRFftPqbdRIomKJfTQEkFHYhYT7fYAZapl NxjAAvv9ClwMEbttSdh8HqzyOxVDYhPKD9CcVIf BVxcDXetOPkwfB1c1DrZZLwqwIdjFnfnEDjpMVf tWEjm9Esyj0xGKXrh6qwrQutGK6mkUMpMXKwMVl fatBfKPXkyxIagtWar4FyG6Z3gH7rWQzjo9PbKz 3qYPQco2UygeEkIrSXjTptTIfhTq0hAQOzlnzch TZiU2XveJrqdJUpJIIzQACvWYWtLDPZcNzaxZAh qAUCCOKoyfU4y2Y8PZzsgTBoxqHyZJ53UNGwEH0 keTIxbFSys4UdTVk8LECmA1bPYU34YOarADYzdY GmnAfniUMwCEWlMCApdiZrhb2teZjlfHFsm00ym CP6yST6YRLucR0vH8AuHRmoOd6tAQZcolyjuVBu zSavVp7wxSydhM2rPyTpMiZvLmyeGG6qMCVgZ4l nfDPjDKPeVNHiJ3qnCgJqvZ4eiCfvYmjpujXrEG YbsjmoGJKbFNMaPYfoVQUmXVYpKgJwsLqbkP8rZ jJcZnMyNFxwYXJ9 Gross assessment was performed at ([facility], code = 2777) Department of Pathology, [address] [place] [address], Technical component was performed at [facility] er, (test code = 2778) Department of Pathology, [address] [place] [address], Professional component was performed at [facility] C enter, (test code = 2779) Department of Pathology, [address] [place] [address], [id number] 14:34:00Surgical Pathology Report Case: [id number] Authorizing Provider: Thaddeus Hernandez MD Collected: 05/05/2020 11:29 AM Ordering Location: [facility] Radiology Main Received: 05/05/2020 01:11 PM Pathologist: Melchor Martinez MD Specimen: Lung, Left LUNG, LEFT, BIOPSY OF MSASS:- CONSISTENT WITH METASTATIC RENAL CARCINOMA Signing Pathologist Direct Phone Line: [phone] signed by Melchor Martinez MD on 05/09/2020 at 2:34 [id number] X 4Renal cell carcinoma,unspecified lateralityLung nodule seen on imaging study Lung, leftPart A received in formalin labeled with the patient's name, medical record number and "lung, left" are two waters-white cores of soft tissue measuring 1.6 x 0.1 x 0.1 cm and 1.5 x 0.1 x 0.1 cm. The specimen is submitted in toto in A1. AA/ewPerformed.The interpretation of this case included the use of immunohistoch emistry or special stains.[id number]-zipufxcwSVM2-[id number]-oxblwhflNCR-frwdlyUOE1-urakuefeDelkiqk SlidesExamined: In-house known positive controls were evaluated along with the test tissue. These control slides run alongside of the patients sample show appropriate staining. Internal positive and negative controls when available are evaluated Immunohistochemistry technical testing was performed at [facility], Pathology Laboratory where it was developed and its performance characteristics were determined. It has not been cleared or approved by the U.S. Food and Drug Administration. The FDA has determined that such clearance or approval is not necessary. The test is used for clinical purposes. It should not be regarded as investigational or for research. This laboratory is certified under the Clinical Laboratory Improvement Amendments of 1988 (CLIA-88) as qualified to perform high complexity clinical laboratory testing.[facility], Department of Pathology,[address] [place] [address], [facility], [address] [place] [address], [facility], [facility] of [facility], [address] [place] [address], TBL, CHEST, PA OR AP, 1 [id number] 15:11:00Reason for exam:- >Post Lung BiopsyShould this be performed at the bedside?->NoFINAL REPORT CLINICAL HISTORY: Post Lung Biopsy TECHNIQUE: 1 view of the chest. COMPARISON: 05/05/2020 IMPRESSION: There is no pneumothorax status post biopsy of the lingular lung mass. The lung dumont are otherwise unchanged since earlier today. Signed: Alberto Holman Verified Date/Time: 05/05/2020 15:11:43 Reading Location: [facility] Radiology Reading Room XR chest PA or AP 1 view in [id number] 15:11:00Interface, External Ris In - 05/05/2020 3:13 PM CDTFINAL REPORT CLINICAL HISTORY: Post Lung Biopsy TECHNIQUE: 1 view of the chest. COMPARISON: 05/05/2020 IMPRESSION: There is nopneumothorax status post biopsy of the lingular lung mass. The lung dumont are otherwise unchanged since earlier today. Signed: Alberto Holman Verified Date/Time: 05/05/2020 15:11:43 Reading Location: [facility] Radiology Reading Room Electronically signed by: ALBERTO HOLMAN M.D. on 0 05/05/2020 03:11 [facility] 1 VIEW 2020-05-05 13:13:00Reason for exam:->Post Lung BiopsyShould this be performed at the bedside?->NoFINAL REPORT CLINICAL HISTORY: Post Lung Biopsy TECHNIQUE: 1 view of the chest. COMPARISON: CT 05/05/2020 IMPRESSION: There is no pneumothorax status post biopsy of the lingular lung mass. There are no significant appearing effusions. The cardiomediastinal silhouette is magnified by technique. There are chronic left rib fractures. Signed: Alberto Holman MDReport Verified Date/Time: 05/05/2020 13:13:23 Reading Location: [facility] Radiology Reading Room CT, BIOPSY, [id number] 12:12:00 Reason for Exam:->C64.9, R91.1FINAL REPORT CT-guided core biopsy dated 05/05/2020 Name of practitioner performing procedure:Ramón Romero M.D. Names of veterinary technician assistant:None Procedure: CT guided core biopsy of the 2.8cm nodular lesion in the lingula. Preprocedure diagnosis:Nodular lesion in the lingula Postprocedurediagnosis:Nodular lesion in the lingula suspicious for metastasis Specimens removed:Nodular lesion in the lingula Estimated blood loss:None Complication:None Sedation: Moderate sedation was administered. [ 2 mg ] of Versed and [100 mcg] fentanyl IV was used for moderate sedation monitored under my direction. Total intraservice time of the sedation was [50 minutes]. The patient's vital signs were monitored throughout the procedure and recorded in the patient's medical record by the nurse. Anesthesia:1% Xylocaine local anesthesia. Graft/Implants:None Technique: This exam was performed according to our departmental dose-optimization program, which includes automated exposure control, adjustment of the mA and/or kV according to patient size and/or use of interactive reconstruction technique. After obtaining informed consent, CT- guided core biopsy of the nodular lesion in the lingula was performed under usual sterile technique. After placing a 19-gauge coaxial needle adjacent to the nodule, core biopsy was performed with a a 20-gauge core needle with 3 passes. Patient tolerated the procedure well.Impression: Successful CT-guided core biopsy of the nodular lesion in the lingula. Signed: Ramón Romero Verified Date/Time: 05/05/2020 12:12:21 Reading Location: [address] Body Reading Room CT biopsy [id number] 12:12:00Interface, External Ris In - 05/05/2020 12:[address]-guided core biopsy dated 05/05/2020 Name of practitioner performing procedure:Ramón Romero M.D. Names of veterinary technician assistant:None Procedure: CT guided core biopsy of the 2.8 cm nodular lesion in the lingula. Preprocedure diagnosis:Nodular lesion in the lingula Postprocedure diagnosis:Nodular lesion in the lingula suspicious for metastasis Specimens removed:Nodular lesion in the lingula Estimated blood loss:None Complicati on:None Sedation: Moderate sedation was administered. [ 2 mg ] of Versed and [100 mcg] fentanyl IV was used for moderate sedation monitored under my direction. Total intraservice time of the sedation was [50 minutes]. The patient's vital signs were monitored throughout the procedure and recorded in the patient's medical record by the nurse. Anesthesia: 1% Xylocaine local anesthesia. Graft/Implants:None Technique: This exam was performed according to our departmental dose-optimization program, which includes automated exposure control, adjustment of the mA and/or kV according to patient size and/or use of interactive reconstruction technique. After obtaining informed consent, CT- guided core biopsy of the nodular lesion in the lingula was performed under usual sterile technique. After placing a 19-gauge coaxial needle adjacent to the nodule, core biopsy was performed with a a 20-gauge core needle with 3 passes. Patient tolerated the procedure well. Impression: Successful CT-guided core biopsy of the nodular lesion in the lingula. Signed: Ramón Romero Verified Date/Time: 05/05/2020 12:12:21 Reading Location: [facility] C013Y CT Body Reading [facility]th[facility]/[id number] 09:00:00 Test Item Value Reference Interpretation Comments Range Protime (test code = 14.5 See_Comment H [Autom ated 5902-2) message] The system which generated this result transmitted reference range : 11.9 - 14.2 seconds. The reference range was not used to interpret this result as normal/abnormal . INR (test code = 1.16 See_Comment [Automated 6301-6) message] The system which generated this result transmitted reference range : <=5.90. The reference range was not used to interpret this result as normal/abnormal . DANIELLE (test code = Effective 01/14/2019: DANIELLE) PT Reference Range ChangeNew: 11.9-14.2 Previous: 11.7-14.7 RECOMMENDED COUMADIN/WARFARIN INR THERAPY RANGESSTANDARD DOSE: 2.0-3.0 Includes: PROPHYLAXIS for venous thrombosis, systemic embolization; TREATMENT for venous thrombosis and/or pulmonary embolus.HIGH RISK: Target INR is 2.5-3.5 for patients wiht mechanical heart valves. Lab Interpretation Abnormal (test code = 99435-8) [facility] Test Item Value Reference Range Interpretation Comments PTT (test code = 33301-8) 31.7 See_Comment [ Automated message] The system [employer] generated this result transmitted ref erence range: 22.5 - 3 6.0 seconds. The re ference range was not u sed to interpret this result as normal/abnor mal. Lab Interpretation (test Normal code = 21033-2) [facility]/[id number] 09:00:00 Test Item Value Reference Range Interpretation Comments PROTIME (BEAKER) (test code = 14.5 seconds 11.9-14.2 H 759) INR (BEAKER) (test code = 370) 1.16 <=5.90 Effective 01/14/2019: PT Reference Range ChangeNew: 11.9-14.2 Previous: 11.7- 14.7RECOMMENDED COUMADIN/WARFARIN INR THERAPY RANGESSTANDARD DOSE: 2.0-3.0 Includes: PROPHYLAXIS for venous thrombosis, systemic embolization; TREATMENT for venous thrombosis and/or pulmonary embolus.HIGH RISK: Target INR is2.5-3.5 for patients wiht mechanical heart valves.[id number] 09:00:00 Test Item Value Reference Range Interpretation Comments PARTIAL THROMBOPLASTIN TIME 31.7 seconds 22.5-36.0 (BEAKER) (test code = 760) CBC with platelet count + automated [id number] 08:43:00 Test Item Value Reference Range Interpretation Comments WBC (test code = 6690-2) 7.9 See_Comment [A utomated message] The system [employer] generated this result transmitted ref erence range: 3.5 - 10 .5 K/L. The refe rence range was not u sed to interpret this result as normal/abnor mal. RBC (test code = 789-8) 3.59 See_Comment L [Au tomated message] The system [employer] generated this result transmitted ref erence range: 4.63 - 6 .08 M/L. The refe rence range was not u sed to interpret this result as normal/abnor mal. MCHC (test code = 786-4) 29.5 See_Comment L [A utomated message] The system [employer] generated this result transmitted ref erence range: 32.3 - 3 6.5 GM/DL. The refe rence range was not u sed to interpret this result as normal/abnor mal. Hematocrit (test code = 37.6 % 40.1-51 L 4544-3) MCV (test code = 787-2) 104.7 fL 79-92.2 H MCH (test code = 785-6) 30.9 pg 25.7-32.2 RDW (test code = 788-0) 14.1 % 11.6-14.4 Platelets (test code = 165 See_Comment [Aut omated message] 777-3) The system [employer] generated this result transmitted ref erence range: 150 - 45 0 K/CU MM. The referen ce range was not u sed to interpret this result as normal/abnor mal. MPV (test code = 10.3 fL 9.4-12.4 68669-0) nRBC (test code = 413) 0 See_Comment [Aut omated message] The system [employer] generated this result transmitted ref erence range: 0 - 0 /1 00 WBC. The refere nce range was not u sed to interpret this result as normal/abnor mal. % Neutros (test code = 73 % 429) % Lymphs (test code = 13 % 430) % Monos (test code = 10 % 431) % Eos (test code = 432) 3 % % Baso (test code = 437) 0 % # Neutros (test code = 5.82 See_Comment H [Aut omated message] 670) The system [employer] generated this result transmitted ref erence range: 1.78 - 5 .38 K/L. The refe rence range was not u sed to interpret this result as normal/abnor mal. # Lymphs (test code = 1.02 See_Comment L [Auto mated message] 414) The system [employer] generated this result transmitted ref erence range: 1.32 - 3 .57 K/L. The refe rence range was not u sed to interpret this result as normal/abnor mal. # Monos (test code = 0.80 See_Comment [Autom ated message] 415) The system [employer] generated this result transmitted ref erence range: 0.30 - 0 .82 K/L. The refe rence range was not u sed to interpret this result as normal/abnor mal. # Eos (test code = 416) 0.26 See_Comment [Au tomated message] The system [employer] generated this result transmitted ref erence range: 0.04 - 0 .54 K/L. The refe rence range was not u sed to interpret this result as normal/abnor mal. # Baso (test code = 417) 0.02 See_Comment [A utomated message] The system [employer] generated this result transmitted ref erence range: 0.01 - 0 .08 K/L. The refe rence range was not u sed to interpret this result as normal/abnor mal. Immature 0 % 0-1 Granulocytes-Relative (test code = 2801) Lab Interpretation (test Abnormal code = 52481-9) [facility] W/PLT COUNT & AUTO [id number] 08:43:00 Test Item Value Reference Range Interpretation Comments WHITE BLOOD CELL COUNT (BEAKER) 7.9 K/ L 3.5-10.5 (test code = 775) RED BLOOD CELL COUNT (BEAKER) 3.59 M/ L 4.63-6.08 L (test code = 761) HEMOGLOBIN (BEAKER) (test code = 11.1 GM/DL 13.7-17.5 L 410) HEMATOCRIT (BEAKER) (test code = 37.6 % 40.1-51.0 L 411) MEAN CORPUSCULAR VOLUME (BEAKER) 104.7 fL 79.0-92.2 H (test code = 753) MEAN CORPUSCULAR HEMOGLOBIN 30.9 pg 25.7-32.2 (BEAKER) (test code = 751) MEAN CORPUSCULAR HEMOGLOBIN CONC 29.5 GM/DL 32.3-36.5 L (BEAKER) (test code = 752) RED CELL DISTRIBUTION WIDTH 14.1 % 11.6-14.4 (BEAKER) (test code = 412) PLATELET COUNT (BEAKER) (test 165 K/CU MM 150-450 code = 756) MEAN PLATELET VOLUME (BEAKER) 10.3 fL 9.4-12.4 (test code = 754) NUCLEATED RED BLOOD CELLS 0 /100 WBC 0-0 (BEAKER) (test code = 413) NEUTROPHILS RELATIVE PERCENT 73 % (BEAKER) (test code = 429) LYMPHOCYTES RELATIVE PERCENT 13 % (BEAKER) (test code = 430) MONOCYTES RELATIVE PERCENT 10 % (BEAKER) (test code = 431) EOSINOPHILS RELATIVE PERCENT 3 % (BEAKER) (test code = 432) BASOPHILS RELATIVE PERCENT 0 % (BEAKER) (test code = 437) NEUTROPHILS ABSOLUTE COUNT 5.82 K/ L 1.78-5.38 H (BEAKER) (test code = 670) LYMPHOCYTES ABSOLUTE COUNT 1.02 K/ L 1.32-3.57 L (BEAKER) (test code = 414) MONOCYTES ABSOLUTE COUNT (BEAKER) 0.80 K/ L 0.30-0.82 (test code = 415) EOSINOPHILS ABSOLUTE COUNT 0.26 K/ L 0.04-0.54 (BEAKER) (test code = 416) BASOPHILS ABSOLUTE COUNT (BEAKER) 0.02 K/ L 0.01-0.08 (test code = 417) IMMATURE GRANULOCYTES-RELATIVE 0 % 0-1 PERCENT (BEAKER) (test code = 2801) Shoulder left cortisone [id number] 09:30:00Barney Flores MD 02/24/2020 12:53 PMShoulder left cortisone injectionConsent given by: patientSite marked: site markedTimeout: Immediately prior to procedure a time out was called to verify the correct patient, procedure, equipment, instructional support assistant and site/side marked as required Supporting DocumentationIndications: pain Procedure DetailsPreparation: Patient was prepped and [...] tolerated the procedure well with no immediate complicationsJose JaquezProtestant [facility] shoulder cortisone [id number] 09:30:00Barney Flores MD 02/24/2020 12:53 PMRight shoulder cortisone injectionConsent given by: patientSite marked: site markedTimeout: Immediately prior to procedure a time out was called to verify the correct patient, procedure, equipment, instructional support assistant and site/side marked as required Supporting DocumentationIndications: pain Procedure DetailsPreparation: Patient was prepped and draped in the usual sterile fashionUltrasound guided: noPlatelet Rich Plasma Used: no PRP UsedLocation: shoulder - R subacromial bursa Right side:Needle size: 25 G (25 gauge)Approach: anterolateralRight shoulder medications ad ministered: 1 mL lidocaine 10 mg/mL (1 %); 6 mg betamethasone acetate & sodium phosphate 6 mg/mLAspirate amount: 0 mLPatient tolerance: patient tolerated the procedure well with no immediate complicationsJose Sepulveda
[2020-11-30 22:21] LABS: Absolute Lymphocytes (CBC) 0.8 K/uL (0.7-4.9); Basophils % 0.6 % (0-1.3); Lymphocytes % 5.7 % (15.3-44.8); MPV 8.2 fL (7.6-11.3); RBC Red Blood Cell Count 3.81 M/uL (4.33-5.43)
[2020-11-30 22:26] LABS: Protime INR 3.61
[2020-11-30 22:31] LABS: Potassium 4.1 mmol/L (3.5-5.1)
[2020-11-30] MEDS ORDERED: ACETAMINOPHEN 325 MG TABLET ONE (22:55)
[2020-11-30] MEDS ORDERED: PIPER/TAZO/NS 3.375gm 3.375 GM/100 ML BAG ONE (22:56)
[2020-11-30 23:14] LABS: Blood Morphology Comment NOT SEEN (NOT SEEN); Platelet Estimate ADEQ
[2020-11-30 23:43] LABS: SARS-COV-2 RT PCR NEGATIVE (NEGATIVE)
--- NOTE | 2020-12-01 01:30 | EDPHYS ---
Physician Documentation [facility] Name: Sunny Small Age: 85 yrs Sex: Male : 1935 Arrival Date: 11/30/2020 Time: 21:12 Bed 8 Private MD: ED Physician Ace Angeles HPI: 11/30 22:33 This 85 yrs old Male presents to ER via EMS with complaints of fever, sob. rn 22:33 The patient reports fever, that was measured at 102 degrees Fahrenheit. Onset: The rn symptoms/episode began/occurred this morning. Modifying factors: there are no obvious modifying factors. Associated signs and symptoms: Pertinent positives: chills, cough, Pertinent negatives: abdominal pain, altered mental status, diarrhea, hemoptysis, skin rash. Severity of symptoms: At their worst the symptoms were moderate in the emergency department the symptoms are unchanged. The patient has not experienced similar symptoms in the past. The patient has not recently seen a physician. Reports fever, cough, sob, began earlier today. No known sick contacts. . Historical: - Allergies: 21:22 Codeine; mg2 21:22 Morphine; mg2 21:22 renvela; mg2 21:22 GABAPENTIN; mg2 21:22 Latex, Natural Rubber; mg2 - PMHx: 21:22 CHF; DVT; ESRD; Gout; Hypertension; hemodialysis; kidney cancer; PE; mg2 - Immunization history:: Flu vaccine status is unknown. - Social history:: Smoking status: unknown. - Family history:: not pertinent. - Hospitalizations: : No recent hospitalization is reported. ROS: 22:33 Constitutional: Negative for fever, chills, and weight loss, Eyes: Negative for injury, rn pain, redness, and discharge, Neck: Negative for injury, pain, and swelling, Cardiovascular: Negative for chest pain, palpitations, and edema, Respiratory: + cough and sob Abdomen/GI: Negative for abdominal pain, nausea, vomiting, diarrhea, and constipation, Back: Negative for injury and pain, MS/Extremity: Negative for injury and deformity, Skin: Negative for injury, rash, and discoloration, Neuro: Negative for headache, numbness, tingling, and seizure. Exam: 22:33 Constitutional: This is a well developed, well nourished patient who is awake, alert, rn + moderate tachypnea Head/Face: Normocephalic, atraumatic. Eyes: Periorbital areas with no swelling, redness, or edema. ENT: dry MM Cardiovascular: Irregular rhythm, regular rate Respiratory: + moderate tachypnea, no retractions, + dminished breath sounds left hemithorax with crackles throughout Abdomen/GI: soft, non-tender Skin: Warm, dry MS/ Extremity: Pulses equal, no cyanosis. + pitting edema bilaterally. Neuro: Awake and alert, GCS 15 Vital Signs: 21:19 BP 141 / 62; Pulse 92; Resp 28; Temp 101.9; Pulse Ox 88% on R/A; mg2 12/01 01:01 BP 121 / 62; Pulse 86; Resp 16; Temp 98.8(A); Pulse Ox 94% on 30% BiPAP; mg2 02:21 BP 119 / 85; Pulse 70; Resp 18; Pulse Ox 98% on 30% BiPAP; mg2 MDM: 11/30 21:13 Patient medically screened. rn 12/01 01:26 Differential diagnosis: viral Infection, bacterial infection, URI, pneumonia. rn Differential diagnosis: aspiration. Data reviewed: vital signs, nurses notes. Counseling: I had a detailed discussion with the patient and/or guardian regarding: the historical points, exam findings, and any diagnostic results supporting the discharge/admit diagnosis, lab results, radiology results, the need for further work-up and treatment in the hospital. Response to treatment: the patient's symptoms have mildly improved after treatment, and as a result, I will admit patient. Admission orders: after a detailed discussion of the patient's condition and case, the admit orders are written by me. ED course: Pt improved on bipap, repeat xray does not show increased aeration, will admit to [facility] and consult pulmonology, with repeat cxr in AM. Clinically has shown improvement with decreased respiratory rate and stabilization of vitals. Zosyn given for possibility of aspiration pneumonia. . 11/30 21:16 Order name: CBC with Diff rn 11/30 21:16 Order name: Basic Metabolic Panel rn 11/30 21:16 Order name: Blood Culture Adult (2) rn 11/30 21:16 Order name: Lactate; Complete Time: 22:32 rn 11/30 21:16 Order name: Procalcitonin; Complete Time: 23:58 rn 11/30 21:16 Order name: Protime (+inr); Complete Time: 22:32 rn 11/30 21:16 Order name: Ptt, Activated; Complete Time: 22:32 rn 11/30 21:16 Order name: Urine Microscopic Only rn 11/30 21:16 Order name: BNP; Complete Time: 22:32 rn 11/30 21:17 Order name: CBC with Automated Diff; Complete Time: 23:58 EDHI 11/30 21:17 Order name: Basic Metabolic Panel; Complete Time: 22:32 EDHI 11/30 21:17 Order name: Blood Culture [facility] 11/30 21:16 Order name: IV Start; Complete Time: 22:35 rn 11/30 21:16 Order name: Chest Single View XRAY rn 11/30 21:16 Order name: Accucheck; Complete Time: 22:35 11/30 21:16 Order name: Cardiac monitoring; Complete Time: 22:35 11/30 21:16 Order name: EKG - Nurse/Tech; Complete Time: 22:35 11/30 21:38 Order name: CT Chest Wo Con rn 11/30 22:28 Order name: Manual Differential; Complete Time: 23:58 [facility] 11/30 23:43 Order name: COVID-19/FLU A+B; Complete Time: 23:58 [facility] 11/30 23:59 Order name: BIPAP 12/01 00:57 Order name: XRAY Chest (1 view) 12/01 01:37 Order name: CONS Physician Consult [facility] 12/01 09:02 Order name: RAD [facility] 12/01 09:41 Order name: Protime (+INR) [facility] 12/01 11:10 Order name: ABO/RH typing [facility] 11/30 21:16 Order name: IV Saline Lock - Large Bore; Complete Time: 22:35 rn 11/30 21:16 Order name: Labs collected and sent; Complete Time: 22:35 rn 11/30 21:16 Order name: O2 Per Protocol; Complete Time: 22:35 11/30 21:16 Order name: O2 Sat Monitoring; Complete Time: 22:35 rn Administered Medications: 11/30 22:35 Drug: Zosyn 3.375 grams Route: IVPB; Infused Over: 60 mins; Site: right hand; mg2 12/01 01:04 Follow up: Response: No adverse reaction; IV Status: Completed infusion; IV Intake: mg2 100ml 11/30 22:35 Drug: Tylenol 650 mg Route: PO; mg2 12/01 01:03 Follow up: Response: No adverse reaction mg2 01:04 Follow up: Response: No adverse reaction mg2 Disposition: 12/01/20 01:29 Hospitalization ordered by [facility] for Inpatient Admission. Preliminary diagnosis are Pneumonia, unspecified organism, Pleural effusion, not elsewhere classified, Aspiration pneumonitis. - Bed requested for Telemetry/MedSurg (Inpatient). - Status is Inpatient Admission. sv - Condition is Fair. - Problem is new. - Symptoms have improved. Critical care time excluding procedures: : Critical care time: Bedside Care: 25 minutes, Family Intervention: 5 minutes. Total rn time: 30 minutes Signatures: Dispatcher [employer] EDKari Khan RN RN sv Woody, Diana, RN RN dw Nieto, Roman, MD MD rn Gardose, Michele, RN RN mg2 Corrections: (The following items were deleted from the chart) 11/30 22:55 21:17 Influenza Screen (A \T\ B)+BA.LAB.BRZ ordered. EDHI EDMS 22:56 21:17 CORONAVIRUS+MR.LAB.BRZ ordered. [facility] EDHI 12/01 01:40 01:29 Hospitalization Ordered by [facility] Love MD for Inpatient Admission. Preliminary dw diagnosis is Pneumonia, unspecified organism; Pleural effusion, not elsewhere classified; Aspiration pneumonitis. Bed requested for Intensive Care Unit. Status is Inpatient Admission. Condition is Fair. Problem is new. Symptoms have improved. rn 10:39 01:40 12/01/2020 01:29 Hospitalization Ordered by [facility] MD for Inpatient sv Admission. Preliminary diagnosis is Pneumonia, unspecified organism; Pleural effusion, not elsewhere classified; Aspiration pneumonitis. Bed requested for [facility] ER HOLD. Status is Inpatient Admission. Condition is Fair. Problem is new. Symptoms have improved. dw 11:15 10:39 12/01/2020 01:29 Hospitalization Ordered by [facility] Love MD for Inpatient sv Admission. Preliminary diagnosis is Pneumonia, unspecified organism; Pleural effusion, not elsewhere classified; Aspiration pneumonitis. Bed requested for Telemetry/MedSurg (Inpatient). Status is Inpatient Admission. Condition is Fair. Problem is new. Symptoms have improved. sv
--- NOTE | 2020-12-01 01:30 | ER ---
Nurse's Notes [facility] Name: Sunny Small Age: 85 yrs Sex: Male : 1935 Arrival Date: 11/30/2020 Time: 21:12 Bed 8 Private MD: Diagnosis: Pneumonia, unspecified organism;Pleural effusion, not elsewhere classified;Aspiration pneumonitis Presentation: 11/30 21:18 Chief complaint: Chief complaint: EMS states: he complaints of shortness of breath and mg2 fever today. covid positive last October 28, 2020. temp-101 F. 21:19 Coronavirus screen: Client denies travel out of the [place] in the last 14 days. Client mg2 presents with at least one sign or symptom that may indicate coronavirus-19. Standard/surgical mask placed on the client. Provider contacted for isolation considerations. Ebola Screen: No symptoms or risks identified at this time. Initial Sepsis Screen: Does the patient meet any 2 criteria? RR > 20 per min. Temp <36.0*C (96.8*F)) or > 38.3*C (100.9*F). Yes Does the patient have a suspected source of infection? Yes: Productive cough/pneumonia. Risk Assessment: Do you want to hurt yourself or someone else? Patient reports no desire to harm self or others. Onset of symptoms was November 30, 2020. 21:19 Method Of Arrival: EMS: [place] [facility] mg2 21:19 Acuity: JEAN 2 mg2 Triage Assessment: 12/01 00:16 General: Appears in no apparent distress. comfortable, Behavior is calm, cooperative. mg2 Historical: - Allergies: 11/30 21:22 Codeine; mg2 21:22 Morphine; mg2 21:22 renvela; mg2 21:22 GABAPENTIN; mg2 21:22 Latex, Natural Rubber; mg2 - PMHx: 21:22 CHF; DVT; ESRD; Gout; Hypertension; hemodialysis; kidney cancer; PE; mg2 - Immunization history:: Flu vaccine status is unknown. - Social history:: Smoking status: unknown. - Family history:: not pertinent. - Hospitalizations: : No recent hospitalization is reported. Screenin/15 00:14 Abuse screen: Denies threats or abuse. Denies injuries from another. Nutritional mg2 screening: No deficits noted. Tuberculosis screening: No symptoms or risk factors identified. Fall Risk IV access (20 points). Assessment: 11/30 21:18 General: code sepsis 700 called for patient. mg2 21:20 Pain: Denies pain. Neuro: Level of Consciousness is awake, alert, obeys commands, mg2 Oriented to person, place. 21:20 Cardiovascular: Capillary refill < 3 seconds Patient's skin is warm and dry. mg2 Respiratory: Reports shortness of breath cough that is Airway is patent Respiratory effort is even, Respiratory pattern is regular, symmetrical. GI: No signs and/or symptoms were reported involving the gastrointestinal system. : No signs and/or symptoms were reported regarding the genitourinary system. EENT: No signs and/or symptoms were reported regarding the EENT system. Derm: Skin is intact, is healthy with good turgor, Skin is pink, warm \T\ dry. Musculoskeletal: Circulation, motion, and sensation intact. Capillary refill < 3 seconds. Vital Signs: 21:19 BP 141 / 62; Pulse 92; Resp 28; Temp 101.9; Pulse Ox 88% on R/A; mg2 12/01 01:01 BP 121 / 62; Pulse 86; Resp 16; Temp 98.8(A); Pulse Ox 94% on 30% BiPAP; mg2 02:21 BP 119 / 85; Pulse 70; Resp 18; Pulse Ox 98% on 30% BiPAP; mg2 ED Course: 11/30 21:12 Patient arrived in ED. cf2 21:13 Ace Angeles MD is Attending Physician. rn 21:18 Nadir Brown RN is Primary Nurse. mg2 21:20 Maintain EMS IV. Dressing intact. Good blood return noted. Site clean \T\ dry. Gauge \T\ mg 2 site: 22 \T\ R wrist. 21:21 Triage completed. mg2 21:22 Arm band placed on. mg2 21:37 Chest Single View XRAY In Process Unspecified. EDMS 22:58 CT Chest Wo Con In Process Unspecified. EDMS 12/01 00:14 No provider procedures requiring assistance completed. mg2 00:16 Patient has correct armband on for positive identification. mg2 01:28 [facility] Love MD is Hospitalizing Provider. rn 02:30 Patient admitted, IV remains in place. mg2 07:04 Primary Nurse role handed off by Nadir Brown, CALISTA sv 07:04 Kari Guan, RN is Primary Nurse. sv Administered Medications: 11/30 22:35 Drug: Zosyn 3.375 grams Route: IVPB; Infused Over: 60 mins; Site: right hand; mg2 12/01 01:04 Follow up: Response: No adverse reaction; IV Status: Completed infusion; IV Intake: mg2 100ml 11/30 22:35 Drug: Tylenol 650 mg Route: PO; mg2 12/01 01:03 Follow up: Response: No adverse reaction mg2 01:04 Follow up: Response: No adverse reaction mg2 Intake: 01:04 IV: 100ml; Total: 100ml. mg2 Outcome: 01:29 Decision to Hospitalize by Provider. rn 02:30 Admitted to ER Hold. Please see [facility] for further documentation. mg2 02:30 Condition: stable mg2 11:15 Patient left the ED. sv Signatures: Dispatcher [employer] Kari Hoffmann, CALISTA RN sv Ace Angeles MD MD rn Gardose, Michele, RN RN mg2 Lb Macdonald cf2 Corrections: (The following items were deleted from the chart) 11/30 21:21 21:18 Chief complaint: mg2 mg2 12/01 02:33 02:32 Pulse 70bpm; Resp 18bpm; Pulse Ox 98% 02 30% BiPAP; mg2 mg2 02:45 02:21 Pulse 70bpm; Resp 18bpm; Pulse Ox 98% 02 30% BiPAP; mg2 mg2
[2020-12-01] MEDS ORDERED: ALBUTEROL 2.5 MG/3 ML NEB SOL NEB PRN (03:31)
[2020-12-01] MEDS ORDERED: ONDANSETRON 4 MG/2 ML VIAL IV PRN (03:31)
[2020-12-01] MEDS ORDERED: IPRATROPIUM BROM 0.5MG/2.5ML NEB PRN (03:31)
[2020-12-01 03:40] VITALS: BMI 32.1
[2020-12-01] MEDS: PIPER/TAZO/NS 3.375gm 3.375 GM/100 ML BAG IVPB SCH ×2 (06:00→12:00)
[2020-12-01] MEDS ORDERED: PIPER/TAZO/NS 3.375gm 3.375 GM/100 ML BAG ONE (07:04)
[2020-12-01] MEDS ORDERED: PNEUMOCOCCAL VACCINE 0.5 ML IMVAC ONE (08:00)
[2020-12-01] MEDS ORDERED: VITAMIN K (ADULT) 10 MG/ML IVP ONE (08:37)
--- NOTE | 2020-12-01 09:02 | RAD REPORT ---
EXAM DESCRIPTION: RAD - Chest Single View - 12/01/2020 1:41 am CLINICAL HISTORY: COUGH Chest pain. COMPARISON: Chest Single View dated 11/30/2020; Chest Single View dated 04/12/2020; Chest Single View dated 07/29/2019; Chest Single View dated 07/16/2019; Thorax Wo Con dated 11/30/2020 FINDINGS: Portable technique limits examination quality. Complete opacification of the left lung is noted with mild mass effect of the cardiomediastinal struc tures to the right. This appears unchanged since prior study. Cardiac size cannot be adequately asses sed. No displaced fractures. IMPRESSION: Complete opacification of left hemothorax.
[2020-12-01 09:39] LABS: Protime INR 3.21
[2020-12-01] MEDS ORDERED: VITAMIN K (ADULT) 10 MG/ML ONE (10:20)
[2020-12-01] MEDS ORDERED: NA CHLORIDE 0.9% 100 ML ONE (12:12)
--- NOTE | 2020-12-01 12:59 | RAD REPORT ---
EXAM DESCRIPTION: XR Chest, 1 View CLINICAL HISTORY: DYSPNEA TECHNIQUE: Frontal view of the chest. COMPARISON: 04/12/2020 FINDINGS: Lungs: There is complete opacification of the left hemithorax. There is prominent vasc ularity of the right hilar vessels. Pleural space: No pneumothorax. No pleural effusion. Heart: Stable large cardiac shadow. Mediastinum: No abnormality noted. Bones/joints: No osseous destruction or sclerosis noted. IMPRESSION: There is now opacification of the left hemithorax. If the patient has not undergone le ft pneumonectomy, large pleural effusion or central obstructing neoplasm should be investigated with IV contrast CT. Electronically signed by: Sunshine Bobo MD 11/30/2020 9:56 PM CDT Due to temporary technical issues with the PACS/Fluency reporting system, reports are being signed by the in house radiologists without review as a courtesy to insure prompt reporting. The interpreting radiologist is fully responsible for the content of the report.
--- NOTE | 2020-12-01 13:01 | RAD REPORT ---
EXAM DESCRIPTION: CT CHEST WITHOUT CONTRAST CLINICAL HISTORY: Cough COMPARISON: 04/12/2020 TECHNIQUE: Axial CT images of the chest without IV contrast obtained from the thoracic inlet through the diaphragm. Coronal and sagittal reformatted images available. This exam was performed according to our departmental dose-optimization program, which includes automated exposure control, adjustment of the mA and/or kV according to patient size and/or use of iterative reconstruction technique. FINDINGS: Chest: Thyroid: No abnormalities of the visualized thyroid. Great Vessels: Great vessels have normal anatomic configuration. Thoracic Aorta: Atherosclerotic calcification of the thoracic aorta. Pulmonary arteries: Mild enlargement main pulmonary artery can be seen with pulmonary arterial hypert ension. Heart: Coronary artery atherosclerosis. No cardiomegaly or significant pericardial effusion. Lymph Nodes: No enlarged mediastinal lymph nodes identified. Esophagus: No abnormalities of the esophagus identified Other: No additional findings. Lungs: Collapse of the left lung. Minimal right basilar dependent atelectasis. Suboptimal evaluation of previously visualized pulmonary nodules in the left lung. Pleura: Large left pleural effusion. No pneumothorax. Trachea/Airways: Senile airway calcifications. There is motion artifact however there appears opacifi cation of the left mainstem bronchus. Bones: Multilevel degenerative spondylosis throughout the thoracic spine with facet arthropathy and d egenerative disc height narrowing. Stable compression deformity of the T4 vertebral body. Osteoarthri tic change of the shoulders. Upper Abdomen: Limited images of the upper abdomen demonstrate hepatic and splenic granulomas. No def inite abnormalities of the adrenal glands or pancreas. No definite abnormalities of the gallbladder. Partial visualization of exophytic peripherally calcified left renal mass with central decreased dens ity. IMPRESSION: 1. Large left pleural effusion with collapse of the left lung. Previously identified l eft lung nodules are not well evaluated on this study. 2. Possible opacification of the left mainstem bronchus which may be related to secretions or aspir ated material. Images airways nodules is also not excluded. 3. Coronary artery atherosclerosis. 4. Partial visualization of exophytic peripherally calcified benign-appearing left renal mass with central decreased density. No definite interval change Electronically signed by: Puneet Barakat 11/30/2020 11:20 PM CDT Due to temporary technical issues with the PACS/Fluency reporting system, reports are being signed by the in house radiologists without review as a courtesy to insure prompt reporting. The interpreting radiologist is fully responsible for the content of the report.
[2020-12-01] MEDS ORDERED: NA CHLORIDE 0.9% 50 ML ONE ×3 (13:02→15:08)
[2020-12-01] MEDS: PIPER/TAZO/NS 2.25gm 2.25 GM/50 ML BAG IVPB SCH ×2 (13:59→17:42)
[2020-12-01] MEDS ORDERED: POLYETHYL GLY 3350 17 GM/DOSE PO PRN (16:15)
[2020-12-01] MEDS: ALBUTEROL 2.5 MG/3 ML NEB SOL NEB SCH (16:20)
[2020-12-01] MEDS: IPRATROPIUM BROM 0.5MG/2.5ML NEB SCH (16:20)
[2020-12-01 20:09] LABS: Protime INR 1.36
[2020-12-01] MEDS: PANTOPRAZOLE 40MG TABLET PO SCH (20:30)
[2020-12-01] MEDS: TEMAZEPAM 15 MG CAP PO PRN (21:00)
[2020-12-01] MEDS: METOPROLOL TAR 50 MG TAB PO SCH (21:00)
--- NOTE | 2020-12-01 22:03 | P.CNS ---
Date of Consult: 12/01/20 Reason for Consult: ESRD Requesting Physician: Keyon Love Chief Complaint: Dyspnea History of Present Illness: 85 yo WM CKD, CHF presented to the ER with 1-2 days of moderate, progressive dyspnea with associated fever and chills. 22:33 This 85 yrs old Male presents to ER via EMS with complaints of fever, sob. rn 22:33 The patient reports fever, that was measured at 102 degrees Fahrenheit. Onset: The rn symptoms/episode began/occurred this morning. Modifying factors: there are no obvious modifying factors. Associated signs and symptoms: Pertinent positives: chills, cough, Pertinent negatives: abdominal pain, altered mental status, diarrhea, hemoptysis, skin rash. Severity of symptoms: At their worst the symptoms were moderate in the emergency department the symptoms are unchanged. The patient has not experienced similar symptoms in the past. The patient has not recently seen a physician. Reports fever, cough, sob, began earlier today. No known sick contacts. Allergies sevelamer [From Renvela] Allergy (Verified 12/01/20 03:40) Itching adhesive tape Adverse Reaction (Verified 12/01/20 03:40) Itching codeine Adverse Reaction (Verified 12/01/20 03:40) Itching morphine Adverse Reaction (Verified 12/01/20 03:40) Itching Home medications list reviewed: Yes Home Medications: Loratadine [Claritin*] 10 mg PO DAILY tab 08/07/19 Acetaminophen/Diphenhydramine [Tylenol Pm Ex-Strength Caplet] 2 tab PO BEDTIME 04/13/20 Atorvastatin Calcium [Lipitor*] 1 tab PO DAILY 04/13/20 Magnesium [Magnesium Gluconate] 250 mg PO DAILY PRN 04/13/20 Metoprolol Tartrate 1 tab PO BID 04/13/20 Polyethylene Glycol 3350 [Miralax] 1 tab PO DAILY PRN 04/13/20 Temazepam 1 tab PO SEECOM PRN 04/13/20 Tramadol HCl [Ultram] 50 mg PO Q4H PRN 04/13/20 Pantoprazole Sodium [Protonix] 40 mg PO 30 MIN BEFORE HS 3 Days #30 tablet. 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 -: CHF -: chronic anemia -: AFib -: ESRD -: DVT filter placed -: cataract sx -: hemorrhoidectomy -: bilateral knee sx -: left hip surgery -: partial nephrectomy - Family History Mother Medical History: Heart disease, Hypertension, Cancer Notes: breast cancer [place] Father Medical History: Heart disease, Hypertension Notes: CHF Sister Medical History: Hypertension, Kidney disease Notes: breast removed d/t precancer - Social History Smoking Status: Unknown if ever smoked Alcohol use: No CD- Drugs: No Caffeine use: Yes Place of Residence: Home Review of Systems 10-point ROS is otherwise unremarkable General: Weakness, Malaise Respiratory: Cough, Shortness of Breath, SOB with Excertion Cardiovascular: Edema Neurological: Weakness Physical Examination Temp Pulse Resp BP Pulse Ox 98.7 F 90 22 H 150/69 H 90 L 12/01/20 20:00 12/01/20 20:00 12/01/20 20:00 12/01/20 20:00 12/01/20 20:00 General: Alert, Oriented x3, Cooperative HEENT: Atraumatic Neck: Supple Respiratory: Diminished Cardiovascular: Regular rate/rhythm Gastrointestinal: Soft and benign, Non-distended Musculoskeletal: No clubbing, No contractures Integumentary: No rashes, No cyanosis Neurological: Normal speech Laboratory Data (last 24 hrs) 11/30/20 21:45: PT 42.0 H, INR 3.61, APTT 46.2 H 11/30/20 21:45: Sodium 146 H, Potassium 4.1, BUN 22 H, Creatinine 4.31 H, Glucose 100 11/30/20 21:45: WBC 13.40 H, Hgb 10.9 L, Hct 35.0 L, Plt Count 252 Imagings Data: EXAM DESCRIPTION: XR Chest, 1 View CLINICAL HISTORY: DYSPNEA TECHNIQUE: Frontal view of the chest. COMPARISON: 04/12/2020 FINDINGS: Lungs: There is complete opacification of the left hemithorax. There is prominent vascularity of the right hilar vessels. Pleural space: No pneumothorax. No pleural effusion. Heart: Stable large cardiac shadow. Mediastinum: No abnormality noted. Bones/joints: No osseous destruction or sclerosis noted. IMPRESSION: There is now opacification of the left hemithorax. If the patient has not undergone left pneumonectomy, large pleural effusion or central obstructing neoplasm should be investigated with IV contrast CT. EXAM DESCRIPTION: CT CHEST WITHOUT CONTRAST CLINICAL HISTORY: Cough COMPARISON: 04/12/2020 TECHNIQUE: Axial CT images of the chest without IV contrast obtained from the thoracic inlet through the diaphragm. Coronal and sagittal reformatted images available. This exam was performed according to our departmental dose- optimization program, which includes automated exposure control, adjustment of the mA and/or kV according to patient size and/or use of iterative reconstruction technique. FINDINGS: Chest: Thyroid: No abnormalities of the visualized thyroid. Great Vessels: Great vessels have normal anatomic configuration. Thoracic Aorta: Atherosclerotic calcification of the thoracic aorta. Pulmonary arteries: Mild enlargement main pulmonary artery can be seen with pulmonary arterial hypertension. Heart: Coronary artery atherosclerosis. No cardiomegaly or significant pericardial effusion. Lymph Nodes: No enlarged mediastinal lymph nodes identified. Esophagus: No abnormalities of the esophagus identified Other: No additional findings. Lungs: Collapse of the left lung. Minimal right basilar dependent atelectasis. Suboptimal evaluation of previously visualized pulmonary nodules in the left lung. Pleura: Large left pleural effusion. No pneumothorax. Trachea/Airways: Senile airway calcifications. There is motion artifact however there appears opacification of the left mainstem bronchus. Bones: Multilevel degenerative spondylosis throughout the thoracic spine with facet arthropathy and degenerative disc height narrowing. Stable compression deformity of the T4 vertebral body. Osteoarthritic change of the shoulders. Upper Abdomen: Limited images of the upper abdomen demonstrate hepatic and splenic granulomas. No definite abnormalities of the adrenal glands or pancreas. No definite abnormalities of the gallbladder. Partial visualization of exophytic peripherally calcified left renal mass with central decreased density. IMPRESSION: 1. Large left pleural effusion with collapse of the left lung. Previously identified left lung nodules are not well evaluated on this study. 2. Possible opacification of the left mainstem bronchus which may be related to secretions or aspirated material. Images airways nodules is also not excluded. 3. Coronary artery atherosclerosis. 4. Partial visualization of exophytic peripherally calcified benign-appearing left renal mass with central decreased density. No definite interval change EXAM DESCRIPTION: RAD - Chest Single View - 12/01/2020 1:41 am CLINICAL HISTORY: COUGH Chest pain. COMPARISON: Chest Single View dated 11/30/2020; Chest Single View dated 04/12/2020; Chest Single View dated 07/29/2019; Chest Single View dated 07/16/2019; Thorax Wo Con dated 11/30/2020 FINDINGS: Portable technique limits examination quality. Complete opacification of the left lung is noted with mild mass effect of the cardiomediastinal structures to the right. This appears unchanged since prior study. Cardiac size cannot be adequately assessed. No displaced fractures. IMPRESSION: Complete opacification of left hemothorax. Conclusions/Impression: A/P: Continue the current POC and Medications other than the changes listed. AM Labs PRN. Recommend daily weight. Please see the orders for complete details. ESRD -HD TIW Hypernatremia -HD TIW HTN with CKD/ CHF -Continue Metoprolol Diastolic CHF, chronic Left pleural effusion -HD TIW with UF -Low sodium diet -Plan for chest tube; send fluid for culture, cell count and cytology. -Continue Zosyn Moderate malnutrition -Start Nephrovite Anemia in CKD -Start Retacrit PRASANNA/ Secondary HyperPTH -Start Renvela -Start Vitamin D3 Left renal mass -Stable Thank you kindly for the consultation.
[2020-12-01] MEDS ORDERED: MANNITOL 25% 12.5 GM/50 ML VIAL IV PRN (22:41)
[2020-12-01] MEDS ORDERED: NA CHLORIDE 0.9% 1,000 ML IV PRN (22:41)
[2020-12-02] MEDS: PIPER/TAZO/NS 2.25gm 2.25 GM/50 ML BAG IVPB SCH ×4 (00:07→12:00)
[2020-12-02] MEDS: ALBUTEROL 2.5 MG/3 ML NEB SOL NEB SCH ×2 (00:41→08:19)
[2020-12-02] MEDS: IPRATROPIUM BROM 0.5MG/2.5ML NEB SCH ×2 (00:41→08:19)
[2020-12-02] MEDS: GUAIFENESIN/DM 5 ML UCUP PO PRN ×3 (03:09→21:05)
[2020-12-02] MEDS ORDERED: LIDOCAINE 1% MPF 5 ML VIAL ONE (03:17)
[2020-12-02] MEDS ORDERED: LIDOCAINE 1% 20 ML MDV ONE (03:28)
[2020-12-02 06:02] LABS: Absolute Lymphocytes (CBC) 1.1 K/uL (0.7-4.9); Basophils % 0.4 % (0-1.3); Lymphocytes % 9.4 % (15.3-44.8); MPV 8.2 fL (7.6-11.3); RBC Red Blood Cell Count 3.58 M/uL (4.33-5.43)
[2020-12-02 06:29] LABS: Potassium 4.3 mmol/L (3.5-5.1)
[2020-12-02] MEDS: METOPROLOL TAR 50 MG TAB PO SCH ×2 (09:00→21:00)
[2020-12-02] MEDS: SEVELAMER CARBONATE 800 MG TABLET PO SCH ×3 (09:02→17:35)
[2020-12-02] MEDS: MULTIVITAMINS,THERAPEUT 1 TAB PO SCH (09:02)
[2020-12-02] MEDS: VITAMIN D 5,000 UNIT CAP PO SCH (09:02)
--- NOTE | 2020-12-02 09:45 | P.OP ---
Preoperative diagnosis: LEFT Large pleural effusion Postoperative diagnosis: LEFT Large pleural effusion Primary procedure: Placement of 16 Fr LEFT Thoracostomy Tube Anesthesia: Local 1% lidocaine Estimated blood loss: scant upon entry, 2+ liters bloody fluid Specimen: bloody fluid sent for analysis Findings: salena bloody fluid Complications: None Drain(s): Other (16Fr THAL chest tube) Transferred to: Other Condition: Good
[2020-12-02 10:09] LABS: Hematocrit 32.3 % (39.6-49.0)
--- NOTE | 2020-12-02 10:47 | RAD REPORT ---
EXAM DESCRIPTION: RAD - Chest Single View - 12/02/2020 10:30 am CLINICAL HISTORY: chest tube placed Chest pain. COMPARISON: No comparisonsNo comparisonsChest Single View dated 12/01/2020; Chest Single View dated ; Chest Single View dated 04/12/2020; Chest Single View dated 07/29/2019 FINDINGS: Portable technique limits examination quality. Opacification left hemithorax is noted. Small bore left-sided chest tube is noted however the tip pos ition is difficult to discern. Mild interstitial opacities in the right lung are noted probably relat ed to mild edema. Cardiac size is not evaluated.
[2020-12-02] MEDS ORDERED: MORPHINE 2 MG/ML SYR IV PRN (11:46)
[2020-12-02] MEDS ORDERED: HYDROMORPHONE HCL 2 MG/ML inj IV PRN ×2 (12:13→12:39)
[2020-12-02] MEDS ORDERED: VITAMIN K (ADULT) 10 MG/ML SQ ONE (12:41)
--- NOTE | 2020-12-02 12:43 | P.PN ---
Subjective Date of Service: 12/02/20 Chief Complaint: Left-sided hemothorax Subjective: Improving (Patient is status post chest tube improving patient has a hemothorax suspect is induced by warfarin complaining of left-sided chest pain) Review of Systems General: Weakness Respiratory: Shortness of Breath Cardiovascular: Chest Pain Physical Examination - Vital Signs Temperature: 97.7 F Blood Pressure: 137/63 Pulse: 72 Respirations: 16 Pulse Ox (%): 94 - Physical Exam General: Alert, Oriented x3, Moderate distress Respiratory: Diminished (Diminished air entry on the left side) Cardiovascular: No edema, Regular rate/rhythm Assessment & Plan - Problems (Diagnosis) (1) Hemothorax Current Visit: Yes Status: Acute Plan: Patient is 85 years of age admitted with left-sided hemothorax he now as a chest tube complaining of left-sided chest pain I have added Dilconcepciónid Dc antibiotic [place] induced by warfarin monitor hemoglobin chest x-ray reviewed
--- NOTE | 2020-12-02 12:46 | P.CNS ---
Date of Consult: 11/24/20 Reason for Consult: Pleural effusion Chief Complaint: Left-sided hemothorax History of Present Illness: Patient is 85 years of age with chronic renal failure admitted with shortness of breath he also reported some fever chest x-ray shows complete opacification of the left belén thorax patient is on warfarin and INR was very elevated Allergies sevelamer [From Renvela] Allergy (Verified 12/01/20 03:40) Itching adhesive tape Adverse Reaction (Verified 12/01/20 03:40) Itching codeine Adverse Reaction (Verified 12/01/20 03:40) Itching morphine Adverse Reaction (Verified 12/01/20 03:40) Itching Home Medications: Loratadine [Claritin*] 10 mg PO DAILY tab 08/07/19 Acetaminophen/Diphenhydramine [Tylenol Pm Ex-Strength Caplet] 2 tab PO BEDTIME 04/13/20 Atorvastatin Calcium [Lipitor*] 1 tab PO DAILY 04/13/20 Magnesium [Magnesium Gluconate] 250 mg PO DAILY PRN 04/13/20 Metoprolol Tartrate 1 tab PO BID 04/13/20 Temazepam 1 tab PO SEECOM PRN 04/13/20 Tramadol HCl [Ultram] 50 mg PO Q4H PRN 04/13/20 Pantoprazole Sodium [Protonix] 40 mg PO 30 MIN BEFORE HS 3 Days #30 tablet. 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 -: CHF -: chronic anemia -: AFib -: ESRD -: DVT filter placed -: cataract sx -: hemorrhoidectomy -: bilateral knee sx -: left hip surgery -: partial nephrectomy - Family History Mother Medical History: Heart disease, Hypertension, Cancer Notes: breast cancer [place] Father Medical History: Heart disease, Hypertension Notes: CHF Sister Medical History: Hypertension, Kidney disease Notes: breast removed d/t precancer - Social History Smoking Status: Unknown if ever smoked Alcohol use: No CD- Drugs: No Caffeine use: Yes Place of Residence: Home Review of Systems 10-point ROS is otherwise unremarkable General: Weakness Respiratory: Shortness of Breath Physical Examination Temp Pulse Resp BP Pulse Ox 97.7 F 72 16 137/63 94 12/02/20 12:43 12/02/20 12:43 12/02/20 12:43 12/02/20 12:43 12/02/20 12:43 General: Alert, Oriented x3, Mild distress Respiratory: Diminished (Diminished on the left side) Cardiovascular: No edema, Normal S1 S2 - Problems (1) Hemothorax Current Visit: Yes Status: Acute Plan: Patient is 85 years of age admitted with ossification of the left belén thorax CT scan reviewed he will require a chest tube discuss with general surgery will need to correct his PT INR given him some vitamin K fresh frozen plasma continue to monitor hemoglobin
[2020-12-02] MEDS ORDERED: NALOXONE HCL 2 MG/2 ML VIAL ONE (14:08)
[2020-12-02] MEDS: ACETAMINOPHEN 500 MG TAB PO PRN ×2 (15:16→21:02)
[2020-12-02] MEDS ORDERED: NALOXONE HCL 2 MG/2 ML VIAL IV ONE (16:00)
[2020-12-02] MEDS: EPOETIN ALFA-EPBX 4,000 UNIT/ML VIAL SQ SCH (17:00)
--- NOTE | 2020-12-02 20:17 | PN ---
Date of Progress Note: 12/02/2020 Subjective: The patient has had a rather eventful day. He had a chest tube inserted with marked juana unt of fluid removed with blood, although his immediate H and H was stable. This will be monitored c losely. During dialysis he received some Dilaudid for pain. Shortly thereafter became rather obtuse , Narcan 2 was given, which reversed it. This was near the end of his dialysis. He will be monitore d as far as the H and H is concerned over the next few days and then determine how to handle his anti coagulation scenario. HR/MODL Voice ID: [id number] Report ID: [id number]
--- NOTE | 2020-12-02 20:26 | OP ---
Date of Procedure: 12/02/2020 Surgeon: Yasmani Ramesh MD, Preoperative Diagnosis: Large left pleural effusion. Postoperative Diagnosis: Large left pleural effusion. Procedure Performed: Placement of a 16-Yemeni left thoracostomy tube. Anesthesia: Local 1% lidocaine. Estimated Blood Loss: Scant blood loss during procedure, however 2 L plus of blood was returned into the thoracostomy specimen container. Specimen: Bloody fluid sent for analysis. Findings: Frankly bloody fluid was returned into the thoracostomy container 2 L plus. The patient h as been on anticoagulation and supratherapeutic. I suspect this is the etiology of his chest tube dr mandel. Drains: 16-Yemeni Thal chest tube in the left thoracic space. The patient remained in room in good condition throughout the procedure. Procedure In Detail: After informed consent was obtained, patient was prepped and draped in usual st erile fashion after adequate anesthesia was achieved. An area of the fifth and sixth intercostal spa ce was anesthetized appropriately with 1% lidocaine. A small incision was made over the skin and a f iner needle was introduced into the thoracic space slowly and bloody fluid was encountered immediatel y. The guidewire was advanced at this point. The needle was removed and sequential dilatation was p erformed using Seldinger technique and a 16-Yemeni Thal chest tube was placed into the thoracic space aiming cranio posteriorly, which returned a significant large amount of bloody fluid filling an enti re Pneumovax container of 2 L of blood-appearing fluid immediately. I clamped the chest tube and marleny brennan a new Pneumovax system in place and kept this clamped at this point. I then secured the chest tu be to the chest wall with a 2-0 nylon suture and a sterile dressing was placed on top. The patient t olerated the procedure well without evidence of complication and remained in the room throughout the procedure in good condition. All counts were correct at the end of the case. TK/MODL Voice ID: [id number] Report ID: [id number]
[2020-12-02] MEDS: PANTOPRAZOLE 40MG TABLET PO SCH (21:03)
[2020-12-02] MEDS: TEMAZEPAM 15 MG CAP PO PRN (21:03)
--- NOTE | 2020-12-02 23:37 | P.PN ---
Date of Service: 12/02/20 Vital Signs Temp Pulse Resp BP Pulse Ox 97.9 F 69 20 109/54 L 96 12/02/20 20:00 12/02/20 21:00 12/02/20 20:00 12/02/20 21:00 12/02/20 20:00 Medications Acetaminophen (Acetaminophen 500 Mg Tab) 1,000 mg PO Q6H PRN PRN Reason: Pain scale 5-7 (Moderate) Last Admin: 12/02/20 21:02 Dose: 1,000 mg Documented by: Cholecalciferol (Vitamin D 5,000 Unit Cap) 5,000 unit PO DAILY BASSAM Last Admin: 12/02/20 09:02 Dose: 5,000 unit Documented by: Guaifenesin/Dextromethorphan (Guaifenesin/Dm 5 Ml Ucup) 10 ml PO Q6H PRN PRN Reason: COUGH Last Admin: 12/02/20 21:05 Dose: 10 ml Documented by: Heparin Sodium (Porcine) (Heparin 1,000 Unit/Ml Vial) 6,000 unit IV EVERY HD PRN PRN Reason: AFTER EACH Albumin Human (Albumin 25%) 50 mls @ 100 mls/hr IV EVERY HD BASSAM Mannitol (Mannitol 25% 12.5 Gm/50 Ml Vial) 12.5 gm IV EVERY HD PRN PRN Reason: Titrate to SBP (MUST DEFINE) Metoprolol Tartrate (Metoprolol Tar 50 Mg Tab) 100 mg PO BID BASSAM Last Admin: 12/02/20 21:00 Dose: Not Given Documented by: Ondansetron HCl (Ondansetron 4 Mg/2 Ml Vial) 4 mg IV Q6H PRN PRN Reason: NAUSEA / VOMITING Pantoprazole Sodium (Pantoprazole 40mg Tablet) 40 mg PO 30 MIN BEFORE HS BASSAM; Protocol Last Admin: 12/02/20 21:03 Dose: 40 mg Documented by: Polyethylene Glycol (Polyethyl Gly 3350 17 Gm/Dose) 17 gm PO DAILY PRN PRN Reason: CONSTIPATION Sevelamer Carbonate (Sevelamer Carbonate 800 Mg Tablet) 800 mg PO TIDWM BASSAM Last Admin: 12/02/20 17:35 Dose: 800 mg Documented by: Sodium Chloride (Flush Normal Saline 10 Ml) 10 ml IV BID BASSAM Last Admin: 12/02/20 21:00 Dose: 10 ml Documented by: Temazepam (Temazepam 15 Mg Cap) 30 mg PO BEDTIME PRN PRN Reason: INSOMNIA Last Admin: 12/02/20 21:03 Dose: 30 mg Documented by: Vitamin B Complex/Vit C/Folic Acid (Multivitamins,Therapeut 1 Tab) 1 tab PO DAILY BASSAM Last Admin: 12/02/20 09:02 Dose: 1 tab Documented by: Microbiology Results 11/30/20 22:15 Blood - Blood Aerobic Blood Culture - Preliminary 11/30/20 22:15 Blood - Blood Blood Culture Gram Stain - Preliminary 11/30/20 22:15 Blood - Blood Anaerobic Blood Culture - Preliminary No growth in 24 hours. 11/30/20 22:00 Blood - Blood Aerobic Blood Culture - Preliminary No growth in 24 hours. 11/30/20 22:00 Blood - Blood Anaerobic Blood Culture - Preliminary No growth in 24 hours. Assessment/ Plan: Nephrology No acute cardiac or pulmonary complaints. No CP or SOB. No acute events overnight. Vitals, medications, blood work and imaging reviewed in the chart. General: Alert, Oriented x3, Cooperative HEENT: Atraumatic Neck: Supple Respiratory: Diminished Cardiovascular: Regular rate/rhythm Gastrointestinal: Soft and benign, Non-distended Musculoskeletal: No clubbing, No contractures Integumentary: No rashes, No cyanosis Neurological: Normal speech Laboratory Data (last 24 hrs) 11/30/20 21:45: PT 42.0 H, INR 3.61, APTT 46.2 H 11/30/20 21:45: Sodium 146 H, Potassium 4.1, BUN 22 H, Creatinine 4.31 H, Glucose 100 11/30/20 21:45: WBC 13.40 H, Hgb 10.9 L, Hct 35.0 L, Plt Count 252 Imagings Data: EXAM DESCRIPTION: XR Chest, 1 View CLINICAL HISTORY: DYSPNEA TECHNIQUE: Frontal view of the chest. COMPARISON: 04/12/2020 FINDINGS: Lungs: There is complete opacification of the left hemithorax. There is prominent vascularity of the right hilar vessels. Pleural space: No pneumothorax. No pleural effusion. Heart: Stable large cardiac shadow. Mediastinum: No abnormality noted. Bones/joints: No osseous destruction or sclerosis noted. IMPRESSION: There is now opacification of the left hemithorax. If the patient has not undergone left pneumonectomy, large pleural effusion or central obstructing neoplasm should be investigated with IV contrast CT. EXAM DESCRIPTION: CT CHEST WITHOUT CONTRAST CLINICAL HISTORY: Cough COMPARISON: 04/12/2020 TECHNIQUE: Axial CT images of the chest without IV contrast obtained from the thoracic inlet through the diaphragm. Coronal and sagittal reformatted images available. This exam was performed according to our departmental dose- optimization program, which includes automated exposure control, adjustment of the mA and/or kV according to patient size and/or use of iterative reconstruction technique. FINDINGS: Chest: Thyroid: No abnormalities of the visualized thyroid. Great Vessels: Great vessels have normal anatomic configuration. Thoracic Aorta: Atherosclerotic calcification of the thoracic aorta. Pulmonary arteries: Mild enlargement main pulmonary artery can be seen with pulmonary arterial hypertension. Heart: Coronary artery atherosclerosis. No cardiomegaly or significant pericardial effusion. Lymph Nodes: No enlarged mediastinal lymph nodes identified. Esophagus: No abnormalities of the esophagus identified Other: No additional findings. Lungs: Collapse of the left lung. Minimal right basilar dependent atelectasis. Suboptimal evaluation of previously visualized pulmonary nodules in the left lung. Pleura: Large left pleural effusion. No pneumothorax. Trachea/Airways: Senile airway calcifications. There is motion artifact however there appears opacification of the left mainstem bronchus. Bones: Multilevel degenerative spondylosis throughout the thoracic spine with facet arthropathy and degenerative disc height narrowing. Stable compression deformity of the T4 vertebral body. Osteoarthritic change of the shoulders. Upper Abdomen: Limited images of the upper abdomen demonstrate hepatic and splenic granulomas. No definite abnormalities of the adrenal glands or pancreas. No definite abnormalities of the gallbladder. Partial visualization of exophytic peripherally calcified left renal mass with central decreased density. IMPRESSION: 1. Large left pleural effusion with collapse of the left lung. Previously identified left lung nodules are not well evaluated on this study. 2. Possible opacification of the left mainstem bronchus which may be related to secretions or aspirated material. Images airways nodules is also not excluded. 3. Coronary artery atherosclerosis. 4. Partial visualization of exophytic peripherally calcified benign-appearing left renal mass with central decreased density. No definite interval change EXAM DESCRIPTION: RAD - Chest Single View - 12/01/2020 1:41 am CLINICAL HISTORY: COUGH Chest pain. COMPARISON: Chest Single View dated 11/30/2020; Chest Single View dated 04/12/2020; Chest Single View dated 07/29/2019; Chest Single View dated 07/16/2019; Thorax Wo Con dated 11/30/2020 FINDINGS: Portable technique limits examination quality. Complete opacification of the left lung is noted with mild mass effect of the cardiomediastinal structures to the right. This appears unchanged since prior study. Cardiac size cannot be adequately assessed. No displaced fractures. IMPRESSION: Complete opacification of left hemothorax. Conclusions/Impression: A/P: Continue the current POC and Medications other than the changes listed. AM Labs PRN. Recommend daily weight. Please see the orders for complete details. ESRD -Acute HD today Hypernatremia -HD TIW HTN with CKD/ CHF -Continue Metoprolol Diastolic CHF, chronic Left pleural effusion -HD TIW with UF -Low sodium diet -Plan for chest tube; send fluid for culture, cell count and cytology. -Continue Zosyn Moderate malnutrition -Continue Nephrovite Anemia in CKD -Continue Retacrit PRASANNA/ Secondary HyperPTH -Continue Renvela -Continue Vitamin D3 Left renal mass -Stable
[2020-12-03] MEDS: ACETAMINOPHEN 500 MG TAB PO PRN ×3 (02:17→18:26)
[2020-12-03] MEDS: GUAIFENESIN/DM 5 ML UCUP PO PRN ×3 (04:20→17:11)
[2020-12-03] MEDS: MULTIVITAMINS,THERAPEUT 1 TAB PO SCH (08:13)
[2020-12-03] MEDS: VITAMIN D 5,000 UNIT CAP PO SCH (08:13)
[2020-12-03] MEDS: METOPROLOL TAR 50 MG TAB PO SCH ×2 (08:13→21:00)
[2020-12-03] MEDS: SEVELAMER CARBONATE 800 MG TABLET PO SCH ×3 (08:13→17:11)
--- NOTE | 2020-12-03 11:18 | P.PN ---
Subjective Date of Service: 12/03/20 Chief Complaint: Left-sided hemothorax Subjective: Improving ( patient is doing better drain is decreased significantly chest x-ray shows significant improvement the past in the left lower lobe no air leak) Review of Systems General: Weakness Cardiovascular: Chest Pain Physical Examination - Vital Signs Temperature: 97.0 F Blood Pressure: 146/65 Pulse: 63 Respirations: 20 Pulse Ox (%): 99 Assessment & Plan - Problems (Diagnosis) (1) Hemothorax Current Visit: Yes Status: Acute Plan: patient admitted with left-sided hemothorax is currently stable hemoglobin is stable there is no air leak continue with low-dose suction plan for a CT scan of the chest on Saturday possible removal of chest tube anticoagulants are absolute contraindication patient already has a filter in place consider low-dose aspirin instead patient is chronic renal failure on hemodialysis patient is intolerant to narcotics
--- NOTE | 2020-12-03 18:46 | PN ---
Subjective: The patient seems comfortable this afternoon. However, he still complains of discomfort in the area of the procedure. There is much less flow today, although it is still read his H and H have stabilized. Other problem with the Dilaudid reaction, which required reverse since t hat time as well as signs of . Possibility of removing the chest tube tomorrow was conside red and then depending on the results of this, we will determine whether can be discharged. The saad ent does take tramadol at home, tolerates that according to his . However, the Coumadin problem was also discussed with her and she states he has been on that since he had a massive embolization in the and was inserted and was decided to continue on indefinitely. However, due to th is episode, it will be discontinued. HR/MODL Voice ID: [id number] Report ID: [id number]
--- NOTE | 2020-12-03 20:00 | PN ---
Date of Progress Note: 12/03/2020 Subjective: The patient was seen and examined. He feels much better. Objective: Vital Signs: Have been reviewed and are stable. He is saturating 98% on 3 L nasal cannu la. General: He appears in no acute distress. HEENT: Atraumatic head. Lungs: Diminished breath sounds at bases. Abdomen: Soft. Extremities: Without any evidence of edema was noted. Laboratory Data: Has been reviewed in detail. Medications: Current medications have been reviewed in detail. Impression: 1.End-stage renal disease, on dialysis. The patient had dialysis yesterday. We will plan for next dialysis on Saturday. 2.Hemothorax. The patient had a CT guided drainage of his chest and further management per Pulmonar y. 3.Anemia secondary to renal failure, currently with stable hemoglobin and hematocrit. Continue to m onitor closely. Plan: Overall patient's volume status is doing better. Continue to monitor and we will plan for anton lysis again on Saturday unless otherwise indicated. VV/MODL Voice ID: [id number] Report ID: [id number]
[2020-12-03] MEDS: PANTOPRAZOLE 40MG TABLET PO SCH (21:01)
--- NOTE | 2020-12-03 21:10 | RAD REPORT ---
EXAM DESCRIPTION: RAD - Chest Single View - 12/03/2020 5:03 am COMPARISON: Chest radiograph November 30, 2020 CLINICAL HISTORY: [facility] MAIN LEFT chest tube, bloody effusion FINDINGS: A single AP view of the chest demonstrates an indistinct cardiomediastinal silhouette. A l eft chest tube is in place with the tip directed towards the mediastinum. The tip is not clearly visu alized. No pneumothorax. Moderate pleural effusions are present. Bibasilar consolidations are present. There are probable loculated effusions of the superior lateral left pleura. Chronic left rib fractures are noted. IMPRESSION: Moderate bilateral pleural effusions with bibasilar consolidations. The left effusion butcher s significantly improved from November 30. Probable loculated effusions of the superolateral left pleura . Left chest tube in place. The tip is not clearly visualized. Electronically signed by: Franki Brown MD 12/03/2020 5:17 AM CDT Due to temporary technical issues with the PACS/Fluency reporting system, reports are being signed by the in house radiologists without review as a courtesy to insure prompt reporting. The interpreting radiologist is fully responsible for the content of the report.
[2020-12-04] MEDS: ACETAMINOPHEN 500 MG TAB PO PRN ×3 (02:22→22:06)
[2020-12-04 07:19] LABS: Hematocrit 34.8 % (39.6-49.0); MPV 8.4 fL (7.6-11.3); RBC Red Blood Cell Count 3.81 M/uL (4.33-5.43)
[2020-12-04] MEDS: VITAMIN D 5,000 UNIT CAP PO SCH (09:02)
[2020-12-04] MEDS: GUAIFENESIN/DM 5 ML UCUP PO PRN ×2 (09:03→22:04)
[2020-12-04] MEDS: METOPROLOL TAR 50 MG TAB PO SCH ×2 (09:03→22:03)
[2020-12-04] MEDS: MULTIVITAMINS,THERAPEUT 1 TAB PO SCH (09:03)
[2020-12-04] MEDS: SEVELAMER CARBONATE 800 MG TABLET PO SCH ×3 (09:03→16:26)
--- NOTE | 2020-12-04 11:19 | RAD REPORT ---
[facility]51 am CLINICAL HISTORY: Left chest tube insertion COMPARISON: December 03, 2020 FINDINGS: Chest tube enters the lower left hemithorax. The tip is not clearly seen but probably lie s medially. No pneumothorax visualized Small to moderate left pleural effusion with basilar atelectasis/infiltrate or mass. The heart remains enlarged.
--- NOTE | 2020-12-04 15:26 | PN ---
Date of Progress Note: 12/04/2020 Subjective: The patient was seen and examined at bedside. He is doing better. Physical Examination: Vital Signs: Have been reviewed and are stable. He is saturating 92% on 3 L of nasal cannula. General: He appears in no acute distress. Lungs: Diminished at the bases. Heart: Auscultation of the heart revealed regular rate and rhythm. Extremities: Showed no evidence of edema. Laboratory Data: Has been reviewed. Hemoglobin has remained stable. He has had a chest x-ray done today showing [id number] left pleural effusion with basilar atelectasis. Impression: 1.End-stage renal disease, on dialysis. 2.Hemothorax. 3.Hypertension. 4.Pleural effusions. 5.Anemia secondary to end-stage renal disease. Plan: The patient is doing okay overall. We will continue aggressive ultrafiltration to prevent marisol ccumulation of pleural effusion. We will plan for dialysis tomorrow. Hemoglobin has remained stable and continue to monitor closely. VV/MODL Voice ID: [id number] Report ID: [id number]
--- NOTE | 2020-12-04 18:44 | PN ---
Date of Progress Note: 12/04/2020 The patient states he feels somewhat better today. He is much more orientated. His hemoglobin is st able at 10.7. He still has a moderate amount to small amounts of fluids on his chest x-ray. This wi ll be clamped and probably remove the tube in the a.m. and the vital signs are stable. HR/MODL Voice ID: [id number] Report ID: [id number]
[2020-12-04] MEDS: PANTOPRAZOLE 40MG TABLET PO SCH (22:04)
--- NOTE | 2020-12-05 07:07 | RAD REPORT ---
EXAM DESCRIPTION: RAD - Chest Single View - 12/05/2020 4:57 am CLINICAL HISTORY: LEFT chest tube, bloody effusion COMPARISON: Portable December 04, portable December 03, portable December 02, CT November 30 TECHNIQUE: AP portable chest image was obtained 12/05/2020 4:57 am . FINDINGS: Increased opacification has occurred now with complete left hemithorax opacification. This diffuse opacification pattern returns to the appearance seen on the November 30- imaging. Trachea rem ains midline. Chest tube is in place but the tip cannot be clearly visualized. Right hemithorax remains clear. Heart is obscured by the left lung field opacification. No right-side d pneumothorax or measurable pleural effusion. IMPRESSION: Left hemithorax complete opacification has recurred.
--- NOTE | 2020-12-05 08:24 | P.PN ---
Subjective Date of Service: 12/05/20 Chief Complaint: Left-sided hemothorax Patient's x-ray looks worse high as again complete left belén thorax opacification no other complaints Review of Systems General: Weakness Respiratory: Shortness of Breath Physical Examination - Vital Signs Temperature: 97.9 F Blood Pressure: 108/51 Pulse: 60 Respirations: 18 Pulse Ox (%): 95 - Physical Exam General: Alert, In no apparent distress, Oriented x3 Respiratory: Diminished (Diminished air entry in the left side) Assessment & Plan - Problems (Diagnosis) (1) Hemothorax Current Visit: Yes Status: Acute Plan: Chest x-ray looks worse reaccumulation off presumed bleeding in the left belén thorax will place a chest tube on suction labs reordered, Roberto Avalos
--- NOTE | 2020-12-05 08:52 | P.PN ---
Subjective Date of Service: 12/05/20 Chief Complaint: Left-sided hemothorax Patient has no new complaints, but chest x ray worsening Physical Examination - Vital Signs Temperature: 97.9 F Blood Pressure: 108/51 Pulse: 60 Respirations: 18 Pulse Ox (%): 95 - Physical Exam General: Alert, In no apparent distress, Cooperative Respiratory: Diminished, Other (LEFT chest tube in place, no output, no air leak, on wall suction) Assessment And Plan - Current Problems (Diagnosis) (1) Hemothorax Current Visit: Yes Status: Acute Plan: - I have removed a clot from the chest tube and the fluid is flowing into the chamber once again - repeat chest x ray in 4-6 hours - Chest CT - Patient will benefit from thoracic surgery consult due to hemothorax - daily chest x-rays
[2020-12-05] MEDS: METOPROLOL TAR 50 MG TAB PO SCH ×2 (09:06→20:05)
[2020-12-05] MEDS: VITAMIN D 5,000 UNIT CAP PO SCH (09:06)
[2020-12-05] MEDS: MULTIVITAMINS,THERAPEUT 1 TAB PO SCH (09:06)
[2020-12-05] MEDS: GUAIFENESIN/DM 5 ML UCUP PO PRN ×3 (09:06→18:18)
[2020-12-05 09:07] LABS: Hematocrit 33.8 % (39.6-49.0); MPV 7.9 fL (7.6-11.3); RBC Red Blood Cell Count 3.75 M/uL (4.33-5.43)
[2020-12-05] MEDS: SEVELAMER CARBONATE 800 MG TABLET PO SCH ×3 (09:07→17:03)
[2020-12-05] MEDS: ALBUMIN HUMAN 25% 50 ML IV SCH (11:15)
[2020-12-05] MEDS: ACETAMINOPHEN 500 MG TAB PO PRN (15:10)
--- NOTE | 2020-12-05 17:36 | PN ---
Date of Progress Note: 12/05/2020 The patient is stable as far as his H and H is concerned. Still has blood in the pleural fluid. Dominik wilson re-evaluate with a chest x-ray tomorrow. HR/MODL Voice ID: [id number] Report ID: [id number]
[2020-12-05] MEDS: EPOETIN ALFA-EPBX 4,000 UNIT/ML VIAL SQ SCH (18:18)
--- NOTE | 2020-12-05 19:56 | P.PN ---
Date of Service: 12/05/20 Vital Signs Temp Pulse Resp BP Pulse Ox 97.5 F 62 20 103/44 L 94 12/05/20 16:00 12/05/20 16:00 12/05/20 16:00 12/05/20 16:00 12/05/20 16:00 Medications Acetaminophen (Acetaminophen 500 Mg Tab) 1,000 mg PO Q6H PRN PRN Reason: Pain scale 5-7 (Moderate) Last Admin: 12/05/20 15:10 Dose: 1,000 mg Documented by: Cholecalciferol (Vitamin D 5,000 Unit Cap) 5,000 unit PO DAILY BASSAM Last Admin: 12/05/20 09:06 Dose: 5,000 unit Documented by: Guaifenesin/Dextromethorphan (Guaifenesin/Dm 5 Ml Ucup) 10 ml PO Q6H PRN PRN Reason: COUGH Last Admin: 12/05/20 18:18 Dose: 10 ml Documented by: Heparin Sodium (Porcine) (Heparin 1,000 Unit/Ml Vial) 6,000 unit IV EVERY HD PRN PRN Reason: AFTER EACH Albumin Human (Albumin 25%) 50 mls @ 100 mls/hr IV EVERY HD BASSAM Last Admin: 12/05/20 11:15 Dose: 50 mls Documented by: Mannitol (Mannitol 25% 12.5 Gm/50 Ml Vial) 12.5 gm IV EVERY HD PRN PRN Reason: Titrate to SBP (MUST DEFINE) Metoprolol Tartrate (Metoprolol Tar 50 Mg Tab) 100 mg PO BID BASSAM Last Admin: 12/05/20 09:06 Dose: 100 mg Documented by: Ondansetron HCl (Ondansetron 4 Mg/2 Ml Vial) 4 mg IV Q6H PRN PRN Reason: NAUSEA / VOMITING Pantoprazole Sodium (Pantoprazole 40mg Tablet) 40 mg PO 30 MIN BEFORE HS BASSAM; Protocol Last Admin: 12/04/20 22:04 Dose: 40 mg Documented by: Polyethylene Glycol (Polyethyl Gly 3350 17 Gm/Dose) 17 gm PO DAILY PRN PRN Reason: CONSTIPATION Last Admin: 12/03/20 17:10 Dose: 17 gm Documented by: Sevelamer Carbonate (Sevelamer Carbonate 800 Mg Tablet) 800 mg PO TIDWM BASSAM Last Admin: 12/05/20 17:03 Dose: 800 mg Documented by: Sodium Chloride (Flush Normal Saline 10 Ml) 10 ml IV BID [facility] Last Admin: 12/05/20 09:08 Dose: 10 ml Documented by: Temazepam (Temazepam 15 Mg Cap) 30 mg PO BEDTIME PRN PRN Reason: INSOMNIA Last Admin: 12/02/20 21:03 Dose: 30 mg Documented by: Vitamin B Complex/Vit C/Folic Acid (Multivitamins,Therapeut 1 Tab) 1 tab PO DAILY [facility] Last Admin: 12/05/20 09:06 Dose: 1 tab Documented by: Microbiology Results 11/30/20 22:15 Blood - Blood Aerobic Blood Culture - Preliminary 11/30/20 22:15 Blood - Blood Blood Culture Gram Stain - Preliminary 11/30/20 22:15 Blood - Blood Anaerobic Blood Culture - Preliminary No growth in 24 hours. 11/30/20 22:00 Blood - Blood Aerobic Blood Culture - Preliminary No growth in 24 hours. 11/30/20 22:00 Blood - Blood Anaerobic Blood Culture - Preliminary No growth in 24 hours. Assessment/ Plan: Nephrology Feeling better. Seen and examined at the end of dialysis. No acute events overnight. Vitals, medications, blood work and imaging reviewed in the chart. General: Alert, Oriented x3, Cooperative HEENT: Atraumatic Neck: Supple Respiratory: Diminished Cardiovascular: Regular rate/rhythm Gastrointestinal: Soft and benign, Non-distended Musculoskeletal: No clubbing, No contractures Integumentary: No rashes, No cyanosis Neurological: Normal speech Laboratory Data (last 24 hrs) 11/30/20 21:45: PT 42.0 H, INR 3.61, APTT 46.2 H 11/30/20 21:45: Sodium 146 H, Potassium 4.1, BUN 22 H, Creatinine 4.31 H, Glucose 100 11/30/20 21:45: WBC 13.40 H, Hgb 10.9 L, Hct 35.0 L, Plt Count 252 Imagings Data: EXAM DESCRIPTION: XR Chest, 1 View CLINICAL HISTORY: DYSPNEA TECHNIQUE: Frontal view of the chest. COMPARISON: 04/12/2020 FINDINGS: Lungs: There is complete opacification of the left hemithorax. There is prominent vascularity of the right hilar vessels. Pleural space: No pneumothorax. No pleural effusion. Heart: Stable large cardiac shadow. Mediastinum: No abnormality noted. Bones/joints: No osseous destruction or sclerosis noted. IMPRESSION: There is now opacification of the left hemithorax. If the patient has not undergone left pneumonectomy, large pleural effusion or central obstructing neoplasm should be investigated with IV contrast CT. EXAM DESCRIPTION: CT CHEST WITHOUT CONTRAST CLINICAL HISTORY: Cough COMPARISON: 04/12/2020 TECHNIQUE: Axial CT images of the chest without IV contrast obtained from the thoracic inlet through the diaphragm. Coronal and sagittal reformatted images available. This exam was performed according to our departmental dose- optimization program, which includes automated exposure control, adjustment of the mA and/or kV according to patient size and/or use of iterative reconstruction technique. FINDINGS: Chest: Thyroid: No abnormalities of the visualized thyroid. Great Vessels: Great vessels have normal anatomic configuration. Thoracic Aorta: Atherosclerotic calcification of the thoracic aorta. Pulmonary arteries: Mild enlargement main pulmonary artery can be seen with pulmonary arterial hypertension. Heart: Coronary artery atherosclerosis. No cardiomegaly or significant pericardial effusion. Lymph Nodes: No enlarged mediastinal lymph nodes identified. Esophagus: No abnormalities of the esophagus identified Other: No additional findings. Lungs: Collapse of the left lung. Minimal right basilar dependent atelectasis. Suboptimal evaluation of previously visualized pulmonary nodules in the left lung. Pleura: Large left pleural effusion. No pneumothorax. Trachea/Airways: Senile airway calcifications. There is motion artifact however there appears opacification of the left mainstem bronchus. Bones: Multilevel degenerative spondylosis throughout the thoracic spine with facet arthropathy and degenerative disc height narrowing. Stable compression deformity of the T4 vertebral body. Osteoarthritic change of the shoulders. Upper Abdomen: Limited images of the upper abdomen demonstrate hepatic and splenic granulomas. No definite abnormalities of the adrenal glands or pancreas. No definite abnormalities of the gallbladder. Partial visualization of exophytic peripherally calcified left renal mass with central decreased density. IMPRESSION: 1. Large left pleural effusion with collapse of the left lung. Previously identified left lung nodules are not well evaluated on this study. 2. Possible opacification of the left mainstem bronchus which may be related to secretions or aspirated material. Images airways nodules is also not excluded. 3. Coronary artery atherosclerosis. 4. Partial visualization of exophytic peripherally calcified benign-appearing left renal mass with central decreased density. No definite interval change EXAM DESCRIPTION: RAD - Chest Single View - 12/01/2020 1:41 am CLINICAL HISTORY: COUGH Chest pain. COMPARISON: Chest Single View dated 11/30/2020; Chest Single View dated 04/12/2020; Chest Single View dated 07/29/2019; Chest Single View dated 07/16/2019; Thorax Wo Con dated 11/30/2020 FINDINGS: Portable technique limits examination quality. Complete opacification of the left lung is noted with mild mass effect of the cardiomediastinal structures to the right. This appears unchanged since prior study. Cardiac size cannot be adequately assessed. No displaced fractures. IMPRESSION: Complete opacification of left hemothorax. Conclusions/Impression: A/P: Continue the current POC and Medications other than the changes listed. AM Labs PRN. Recommend daily weight. Please see the orders for complete details. ESRD -HD TIW Hypernatremia -HD TIW HTN with CKD/ CHF -Continue Metoprolol Diastolic CHF, chronic Left pleural effusion -HD TIW with UF -Low sodium diet -Continue chest tube for hemothorax -Continue Zosyn Moderate malnutrition -Continue Nephrovite -Encourage nutrition with protein supplementation Anemia in CKD -Continue Retacrit PRASANNA/ Secondary HyperPTH -Continue Renvela -Continue Vitamin D3 Left renal mass -Stable
[2020-12-05] MEDS: PANTOPRAZOLE 40MG TABLET PO SCH (20:30)
[2020-12-06 04:34] LABS: Absolute Lymphocytes (CBC) 1.2 K/uL (0.7-4.9); Basophils % 0.6 % (0-1.3); Hematocrit 33.1 % (39.6-49.0); Lymphocytes % 11.2 % (15.3-44.8); MPV 8.1 fL (7.6-11.3); RBC Red Blood Cell Count 3.67 M/uL (4.33-5.43)
[2020-12-06 04:42] LABS: Protime INR 1.06
[2020-12-06 05:04] LABS: Albumin 2.7 g/dL (3.4-5.0); Bilirubin Total 0.4 mg/dL (0.2-1.0); Potassium 3.7 mmol/L (3.5-5.1); Protein, Total 6.5 g/dL (6.4-8.2)
--- NOTE | 2020-12-06 07:36 | RAD REPORT ---
EXAM DESCRIPTION: RAD - Chest Single View - 12/06/2020 6:18 am CLINICAL HISTORY: LEFT chest tube, bloody effusion COMPARISON: December 05 TECHNIQUE: AP portable chest image was obtained 12/06/2020 6:18 am . FINDINGS: Left-sided chest tube is in place. Tip is not well visualized but appears be in the medial aspect of the mid to lower left chest. Pleural fluid volume has diminished. There is now aeration of portions of the left upper lobe. Lower left lung field remains fully opacified obscuring the left he midiaphragm and left heart border. No new right lung field finding. Cardiac silhouette is mostly obscured. Mild cardiomegaly is likely. No pneumothorax identified. No r ight-sided pleural effusion. No acute bony abnormality seen. No acute aortic findings suspected. IMPRESSION: Partial clearing of left-sided pleural fluid collection. There is partial aeration of th e left upper lobe.
--- NOTE | 2020-12-06 08:28 | P.PN ---
Subjective Date of Service: 12/06/20 Chief Complaint: Left-sided hemothorax No new complaints minimal air leak on the chest tube Review of Systems General: Weakness Respiratory: Shortness of Breath Physical Examination - Vital Signs Temperature: 97.8 F Blood Pressure: 115/59 Pulse: 63 Respirations: 16 Pulse Ox (%): 97 - Studies Microbiology Data (last 24 hrs): 11/30/20 22:15 Blood - Blood Aerobic Blood Culture - Final 11/30/20 22:15 Blood - Blood Blood Culture Gram Stain - Final 11/30/20 22:15 Blood - Blood Anaerobic Blood Culture - Final No growth in 5 days. 11/30/20 22:00 Blood - Blood Aerobic Blood Culture - Final No growth in 5 days. 11/30/20 22:00 Blood - Blood Anaerobic Blood Culture - Final No growth in 5 days. Assessment & Plan - Problems (Diagnosis) (1) Hemothorax Current Visit: Yes Status: Acute Plan: Chest x-ray has improved will plan to do a CT scan of the chest with contrast minimal air leak possible transfer to a tertiary care facility depending upon the CT scan hemoglobin stable minimal drainage vital signs stable
[2020-12-06] MEDS: METOPROLOL TAR 50 MG TAB PO SCH ×2 (09:00→21:12)
[2020-12-06] MEDS: SEVELAMER CARBONATE 800 MG TABLET PO SCH ×3 (09:26→17:27)
[2020-12-06] MEDS: MULTIVITAMINS,THERAPEUT 1 TAB PO SCH (09:26)
[2020-12-06] MEDS: VITAMIN D 5,000 UNIT CAP PO SCH (09:28)
--- NOTE | 2020-12-06 10:26 | RAD REPORT ---
EXAM DESCRIPTION: CT - Thorax W/ Con - 12/06/2020 9:59 am CLINICAL HISTORY: Left sided chest tube, on hempdialysis COMPARISON: Thorax Wo Con dated 11/30/2020; Thorax Wo Con dated 04/12/2020 TECHNIQUE: Dynamically enhanced 5 mm thick images of the chest were obtained during administration o f 100 mL non-ionic IV contrast. All CT scans are performed using dose optimization technique as appropriate and may include automated exposure control or mA/KV adjustment according to patient size. FINDINGS: Trace pneumothorax in the left apex with trace anterior left base pneumothorax (less than 5% total). Small amounts of pleural fluid are seen in the posterior mid and upper left lung field possibly locul ated. Minimal pleural fluid seen in the left lung base. Left-sided chest tube is in place entering th e lateral sixth inner costal space. Tip extends posteriorly to the mid chest level. Trace atelectasis in the left upper lobe. There there is near complete atelectasis of the left lower lobe. Numerous pleural based masses are identified. A 2.1 centimeter mass is seen along the posterolateral left upper chest (image 15/66). A 3.1 centimeter mass is present lateral mid chest (image 25/66) with a 5.4 x 3.9 centimeter mass in the left base (image 31/66). There is a lobulated or nodular contour throughout the pleura in the posterior gutter. These findings are all progressive from March 2020. C omparison to the November 30 study is difficult due to the large volume of isodense pleural fluid in the left hemithorax. Patient has several additional pleural abutting nodules in the left upper lobe. Left lower lobe asses sment cannot be made due to the atelectasis. Right lung field is clear. No right-sided pleural based masses. No right-sided pleural effusion or pn eumothorax. No axillary lymphadenopathy. No abnormal mediastinal or hilar mass or lymphadenopathy seen. IMPRESSION: Left-sided pleural effusion has mostly resolved. Small pockets of fluid in the posterior upper left chest may well be loculated. Minimal fluid seen near the posterior gutter. Left-sided chest tube is in place entering the sixth inner costal space lateral chest and extending p osteriorly. Numerous pleural based masses and several small pleural abutting lung parenchymal masses are present clearly enlarged from March 2020. Comparison to April 01 is difficult due to the extent of isodens e fluid in the pleural space. Trace pneumothorax in the left apex and anterior left base (less than 5%).
[2020-12-06] MEDS: ACETAMINOPHEN 500 MG TAB PO PRN ×3 (12:12→23:01)
--- NOTE | 2020-12-06 17:13 | P.PN ---
Subjective Date of Service: 12/06/20 Chief Complaint: Left-sided hemothorax Patient has no new complaints Physical Examination - Vital Signs Temperature: 97.1 F Blood Pressure: 133/62 Pulse: 80 Respirations: 17 Pulse Ox (%): 97 - Physical Exam General: In no apparent distress, Cooperative Respiratory: Clear to auscultation bilaterally, Other (LEFT chest tube in place draining well, no air leak) - Studies Microbiology Data (last 24 hrs): 11/30/20 22:15 Blood - Blood Aerobic Blood Culture - Final 11/30/20 22:15 Blood - Blood Blood Culture Gram Stain - Final 11/30/20 22:15 Blood - Blood Anaerobic Blood Culture - Final No growth in 5 days. 11/30/20 22:00 Blood - Blood Aerobic Blood Culture - Final No growth in 5 days. 11/30/20 22:00 Blood - Blood Anaerobic Blood Culture - Final No growth in 5 days. Assessment And Plan - Current Problems (Diagnosis) (1) Hemothorax Current Visit: Yes Status: Acute Plan: - I have removed a clot from the chest tube and the fluid is flowing into the chamber once again - repeat chest x ray in 4-6 hours - Chest CT noted loculations, - Patient will benefit from thoracic surgery consult due to hemothorax - daily chest x-rays
[2020-12-06] MEDS ORDERED: PNEUMOCOCCAL VACCINE 0.5 ML IMVAC ONE (19:00)
--- NOTE | 2020-12-06 19:23 | P.PN ---
Date of Service: 12/06/20 Vital Signs Temp Pulse Resp BP Pulse Ox 97.1 F 80 17 133/62 97 12/06/20 17:13 12/06/20 17:13 12/06/20 17:13 12/06/20 17:13 12/06/20 17:13 Medications Acetaminophen (Acetaminophen 500 Mg Tab) 1,000 mg PO Q6H PRN PRN Reason: Pain scale 5-7 (Moderate) Last Admin: 12/06/20 17:27 Dose: 1,000 mg Documented by: Cholecalciferol (Vitamin D 5,000 Unit Cap) 5,000 unit PO DAILY BASSAM Last Admin: 12/06/20 09:28 Dose: 5,000 unit Documented by: Guaifenesin/Dextromethorphan (Guaifenesin/Dm 5 Ml Ucup) 10 ml PO Q6H PRN PRN Reason: COUGH Last Admin: 12/05/20 18:18 Dose: 10 ml Documented by: Heparin Sodium (Porcine) (Heparin 1,000 Unit/Ml Vial) 6,000 unit IV EVERY HD PRN PRN Reason: AFTER EACH Albumin Human (Albumin 25%) 50 mls @ 100 mls/hr IV EVERY HD BASSAM Last Admin: 12/05/20 11:15 Dose: 50 mls Documented by: Mannitol (Mannitol 25% 12.5 Gm/50 Ml Vial) 12.5 gm IV EVERY HD PRN PRN Reason: Titrate to SBP (MUST DEFINE) Metoprolol Tartrate (Metoprolol Tar 50 Mg Tab) 100 mg PO BID BASSAM Last Admin: 12/06/20 09:00 Dose: Not Given Documented by: Ondansetron HCl (Ondansetron 4 Mg/2 Ml Vial) 4 mg IV Q6H PRN PRN Reason: NAUSEA / VOMITING Pantoprazole Sodium (Pantoprazole 40mg Tablet) 40 mg PO 30 MIN BEFORE HS BASSAM; Protocol Last Admin: 12/05/20 20:30 Dose: 40 mg Documented by: Polyethylene Glycol (Polyethyl Gly 3350 17 Gm/Dose) 17 gm PO DAILY PRN PRN Reason: CONSTIPATION Last Admin: 12/03/20 17:10 Dose: 17 gm Documented by: Sevelamer Carbonate (Sevelamer Carbonate 800 Mg Tablet) 800 mg PO TIDWM BASSAM Last Admin: 12/06/20 17:27 Dose: 800 mg Documented by: Sodium Chloride (Flush Normal Saline 10 Ml) 10 ml IV BID [facility] Last Admin: 12/06/20 09:26 Dose: 10 ml Documented by: Temazepam (Temazepam 15 Mg Cap) 30 mg PO BEDTIME PRN PRN Reason: INSOMNIA Last Admin: 12/02/20 21:03 Dose: 30 mg Documented by: Vitamin B Complex/Vit C/Folic Acid (Multivitamins,Therapeut 1 Tab) 1 tab PO DAILY [facility] Last Admin: 12/06/20 09:26 Dose: 1 tab Documented by: Microbiology Results 11/30/20 22:15 Blood - Blood Aerobic Blood Culture - Final 11/30/20 22:15 Blood - Blood Blood Culture Gram Stain - Final 11/30/20 22:15 Blood - Blood Anaerobic Blood Culture - Final No growth in 5 days. 11/30/20 22:00 Blood - Blood Aerobic Blood Culture - Final No growth in 5 days. 11/30/20 22:00 Blood - Blood Anaerobic Blood Culture - Final No growth in 5 days. Assessment/ Plan: Nephrology Resting comfortably. +Cough. +Appetite No acute events overnight. Vitals, medications, blood work and imaging reviewed in the chart. General: Alert, Oriented x3, Cooperative HEENT: Atraumatic Neck: Supple Respiratory: Diminished Cardiovascular: Regular rate/rhythm Gastrointestinal: Soft and benign, Non-distended Musculoskeletal: No clubbing, No contractures Integumentary: No rashes, No cyanosis Neurological: Normal speech Laboratory Data (last 24 hrs) 11/30/20 21:45: PT 42.0 H, INR 3.61, APTT 46.2 H 11/30/20 21:45: Sodium 146 H, Potassium 4.1, BUN 22 H, Creatinine 4.31 H, Glucos e 100 11/30/20 21:45: WBC 13.40 H, Hgb 10.9 L, Hct 35.0 L, Plt Count 252 Imagings Data: EXAM DESCRIPTION: XR Chest, 1 View CLINICAL HISTORY: DYSPNEA TECHNIQUE: Frontal view of the chest. COMPARISON: 04/12/2020 FINDINGS: Lungs: There is complete opacification of the left hemithorax. There is prominent vascularity of the right hilar vessels. Pleural space: No pneumothorax. No pleural effusion. Heart: Stable large cardiac shadow. Mediastinum: No abnormality noted. Bones/joints: No osseous destruction or sclerosis noted. IMPRESSION: There is now opacification of the left hemithorax. If the patient has not undergone left pneumonectomy, large pleural effusion or central obstructing neoplasm should be investigated with IV contrast CT. EXAM DESCRIPTION: CT CHEST WITHOUT CONTRAST CLINICAL HISTORY: Cough COMPARISON: 04/12/2020 TECHNIQUE: Axial CT images of the chest without IV contrast obtained from the thoracic inlet through the diaphragm. Coronal and sagittal reformatted images available. This exam was performed according to our departmental dose- optimization program, which includes automated exposure control, adjustment of the mA and/or kV according to patient size and/or use of iterative reconstruction technique. FINDINGS: Chest: Thyroid: No abnormalities of the visualized thyroid. Great Vessels: Great vessels have normal anatomic configuration. Thoracic Aorta: Atherosclerotic calcification of the thoracic aorta. Pulmonary arteries: Mild enlargement main pulmonary artery can be seen with pulmonary arterial hypertension. Heart: Coronary artery atherosclerosis. No cardiomegaly or significant pericardial effusion. Lymph Nodes: No enlarged mediastinal lymph nodes identified. Esophagus: No abnormalities of the esophagus identified Other: No additional findings. Lungs: Collapse of the left lung. Minimal right basilar dependent atelectasis. Suboptimal evaluation of previously visualized pulmonary nodules in the left lung. Pleura: Large left pleural effusion. No pneumothorax. Trachea/Airways: Senile airway calcifications. There is motion artifact however there appears opacification of the left mainstem bronchus. Bones: Multilevel degenerative spondylosis throughout the thoracic spine with facet arthropathy and degenerative disc height narrowing. Stable compression de formity of the T4 vertebral body. Osteoarthritic change of the shoulders. Upper Abdomen: Limited images of the upper abdomen demonstrate hepatic and splenic granulomas. No definite abnormalities of the adrenal glands or pancreas. No definite abnormalities of the gallbladder. Partial visualization of exophytic peripherally calcified left renal mass with central decreased density. IMPRESSION: 1. Large left pleural effusion with collapse of the left lung. Previously identified left lung nodules are not well evaluated on this study. 2. Possible opacification of the left mainstem bronchus which may be related to secretions or aspirated material. Images airways nodules is also not excluded. 3. Coronary artery atherosclerosis. 4. Partial visualization of exophytic peripherally calcified benign-appearing left renal mass with central decreased density. No definite interval change EXAM DESCRIPTION: RAD - Chest Single View - 12/01/2020 1:41 am CLINICAL HISTORY: COUGH Chest pain. COMPARISON: Chest Single View dated 11/30/2020; Chest Single View dated 04/12/2020; Chest Single View dated 07/29/2019; Chest Single View dated 07/16/2019; Thorax Wo Con dated 11/30/2020 FINDINGS: Portable technique limits examination quality. Complete opacification of the left lung is noted with mild mass effect of the cardiomediastinal structures to the right. This appears unchanged since prior study. Cardiac size cannot be adequately assessed. No displaced fractures. IMPRESSION: Complete opacification of left hemothorax. Conclusions/Impression: A/P: Continue the current POC and Medications other than the changes listed. AM Labs PRN. Recommend daily weight. Please see the orders for complete details. ESRD -HD TIW Hypernatremia -HD TIW HTN with CKD/ CHF -Continue Metoprolol Diastolic CHF, chronic -HD TIW with UF -Low sodium diet Moderate malnutrition -Continue Nephrovite -Encourage nutrition with protein supplementation Anemia in CKD -Continue Retacrit PRASANNA/ Secondary HyperPTH -Continue Renvela -Continue Vitamin D3 Left hemothorax complicated by numerous pleural nodules -s/p chest tube Left renal mass -Stable
--- NOTE | 2020-12-06 20:12 | PN ---
Date of Progress Note: 12/06/2020 Subjective: The patient's chest x-ray and CT scan show significant improvement in the amount of flui d present. We then proceed by suctioning decreased as far as the chest tube is concerned there is po ssibility of being removed after 24 hours. The patient does feel rather fatigued, but he has signifi cant removal of fluids secondary to his dialysis as well and I will continue to monitor the pleural e ffusion. HR/MODL Voice ID: [id number] Report ID: [id number]
[2020-12-06] MEDS: PANTOPRAZOLE 40MG TABLET PO SCH (21:12)
[2020-12-06] MEDS: GUAIFENESIN/DM 5 ML UCUP PO PRN (21:12)
[2020-12-06] MEDS: TEMAZEPAM 15 MG CAP PO PRN ×2 (21:13→22:12)
--- NOTE | 2020-12-07 08:45 | RAD REPORT ---
EXAM DESCRIPTION: RAD - Chest Single View - 12/07/2020 5:15 am CLINICAL HISTORY: LEFT chest tube, bloody effusion Chest pain. COMPARISON: Chest Single View dated 12/06/2020; Chest Single View dated 12/05/2020; Chest Single View dated 12/04/2020; Chest Single View dated 12/03/2020; Thorax W/ Con dated 12/06/2020 FINDINGS: Portable technique limits examination quality. A left-sided chest tube is in place. Position of tube is stable. Small left pleural effusion suspecte d. There is no evidence of pneumothorax. The right lung is grossly clear. The heart is mildly to mode rately enlarged.
--- NOTE | 2020-12-07 08:54 | RAD REPORT ---
EXAM DESCRIPTION: RAD - Chest Single View - 12/07/2020 8:48 am CLINICAL HISTORY: repeat xray, r/o further issues in lung Chest pain. COMPARISON: Chest Single View dated 12/07/2020; Chest Single View dated 12/06/2020; Chest Single View dated 12/05/2020; Chest Single View dated 12/04/2020; Thorax W/ Con dated 12/06/2020 FINDINGS: Portable technique limits examination quality. Inferiorly located left-sided chest tube is unchanged in position. Left pleural fluid is again seen, unchanged in volume. Rounded density along the left lateral pleural surface is present. The heart is mildly enlarged in size.
[2020-12-07] MEDS: VITAMIN D 5,000 UNIT CAP PO SCH (09:11)
[2020-12-07] MEDS: METOPROLOL TAR 50 MG TAB PO SCH ×2 (09:11→21:00)
[2020-12-07] MEDS: MULTIVITAMINS,THERAPEUT 1 TAB PO SCH (09:11)
[2020-12-07] MEDS: SEVELAMER CARBONATE 800 MG TABLET PO SCH ×3 (09:11→17:48)
--- NOTE | 2020-12-07 09:13 | P.PN ---
Subjective Date of Service: 12/07/20 Chief Complaint: Left-sided hemothorax Patient has no new complaints Physical Examination - Vital Signs Temperature: 97.5 F Blood Pressure: 131/53 Pulse: 69 Respirations: 19 Pulse Ox (%): 94 - Physical Exam General: Alert, In no apparent distress, Cooperative HEENT: Mucous membr. moist/pink Respiratory: Normal air movement, Other (LEFT chest tube in place, clot in tubing again, removed with syringe, fluid flowing again) - Studies Microbiology Data (last 24 hrs): 11/30/20 22:15 Blood - Blood Aerobic Blood Culture - Final 11/30/20 22:15 Blood - Blood Blood Culture Gram Stain - Final 11/30/20 22:15 Blood - Blood Anaerobic Blood Culture - Final No growth in 5 days. Assessment And Plan - Current Problems (Diagnosis) (1) Hemothorax Current Visit: Yes Status: Acute Plan: - I have removed a clot from the chest tube and the fluid is flowing into the chamber once again - repeat chest x ray reviewed - Chest CT noted loculations, - Patient will benefit from thoracic surgery consult due to hemothorax and loculations - daily chest x-rays
[2020-12-07] MEDS: ALBUMIN HUMAN 25% 50 ML IV SCH (10:30)
[2020-12-07] MEDS: ACETAMINOPHEN 500 MG TAB PO PRN ×2 (10:54→21:58)
[2020-12-07] MEDS: EPOETIN ALFA-EPBX 4,000 UNIT/ML VIAL SQ SCH (17:00)
--- NOTE | 2020-12-07 20:06 | P.PN ---
Date of Service: 12/07/20 Vital Signs Temp Pulse Resp BP Pulse Ox 97.8 F 63 18 138/64 94 12/07/20 16:00 12/07/20 16:00 12/07/20 16:00 12/07/20 16:00 12/07/20 16:00 Medications Acetaminophen (Acetaminophen 500 Mg Tab) 1,000 mg PO Q6H PRN PRN Reason: Pain scale 5-7 (Moderate) Last Admin: 12/07/20 10:54 Dose: 1,000 mg Documented by: Cholecalciferol (Vitamin D 5,000 Unit Cap) 5,000 unit PO DAILY BASSAM Last Admin: 12/07/20 09:11 Dose: 5,000 unit Documented by: Guaifenesin/Dextromethorphan (Guaifenesin/Dm 5 Ml Ucup) 10 ml PO Q6H PRN PRN Reason: COUGH Last Admin: 12/06/20 21:12 Dose: 10 ml Documented by: Heparin Sodium (Porcine) (Heparin 1,000 Unit/Ml Vial) 6,000 unit IV EVERY HD PRN PRN Reason: AFTER EACH Albumin Human (Albumin 25%) 50 mls @ 100 mls/hr IV EVERY HD BASSAM Last Admin: 12/07/20 10:30 Dose: 50 mls Documented by: Mannitol (Mannitol 25% 12.5 Gm/50 Ml Vial) 12.5 gm IV EVERY HD PRN PRN Reason: Titrate to SBP (MUST DEFINE) Metoprolol Tartrate (Metoprolol Tar 50 Mg Tab) 100 mg PO BID BASSAM Last Admin: 12/07/20 09:11 Dose: 100 mg Documented by: Ondansetron HCl (Ondansetron 4 Mg/2 Ml Vial) 4 mg IV Q6H PRN PRN Reason: NAUSEA / VOMITING Pantoprazole Sodium (Pantoprazole 40mg Tablet) 40 mg PO 30 MIN BEFORE HS BASSAM; Protocol Last Admin: 12/06/20 21:12 Dose: 40 mg Documented by: Polyethylene Glycol (Polyethyl Gly 3350 17 Gm/Dose) 17 gm PO DAILY PRN PRN Reason: CONSTIPATION Last Admin: 12/03/20 17:10 Dose: 17 gm Documented by: Sevelamer Carbonate (Sevelamer Carbonate 800 Mg Tablet) 800 mg PO TIDWM [facility] Last Admin: 12/07/20 17:48 Dose: 800 mg Documented by: Sodium Chloride (Flush Normal Saline 10 Ml) 10 ml IV BID [facility] Last Admin: 12/07/20 09:00 Dose: 10 ml Documented by: Temazepam (Temazepam 15 Mg Cap) 30 mg PO BEDTIME PRN PRN Reason: INSOMNIA Last Admin: 12/06/20 22:12 Dose: 30 mg Documented by: Vitamin B Complex/Vit C/Folic Acid (Multivitamins,Therapeut 1 Tab) 1 tab PO DAILY [facility] Last Admin: 12/07/20 09:11 Dose: 1 tab Documented by: Microbiology Results 11/30/20 22:15 Blood - Blood Aerobic Blood Culture - Final 11/30/20 22:15 Blood - Blood Blood Culture Gram Stain - Final 11/30/20 22:15 Blood - Blood Anaerobic Blood Culture - Final No growth in 5 days. 11/30/20 22:00 Blood - Blood Aerobic Blood Culture - Final No growth in 5 days. 11/30/20 22:00 Blood - Blood Anaerobic Blood Culture - Final No growth in 5 days. Assessment/ Plan: Nephrology +Cough. +Appetite Persistent chest tube No acute events overnight. Vitals, medications, blood work and imaging reviewed in the chart. General: Alert, Oriented x3, Cooperative HEENT: Atraumatic Neck: Supple Respiratory: Diminished Cardiovascular: Regular rate/rhythm Gastrointestinal: Soft and benign, Non-distended Musculoskeletal: No clubbing, No contractures Integumentary: No rashes, No cyanosis Neurological: Normal speech Laboratory Data (last 24 hrs) 11/30/20 21:45: PT 42.0 H, INR 3.61, APTT 46.2 H 11/30/20 21:45: Sodium 146 H, Potassium 4.1, BUN 22 H, Creatinine 4.31 H, Glucose 100 11/30/20 21:45: WBC 13.40 H, Hgb 10.9 L, Hct 35.0 L, Plt Count 252 Imagings Data: EXAM DESCRIPTION: XR Chest, 1 View CLINICAL HISTORY: DYSPNEA TECHNIQUE: Frontal view of the chest. COMPARISON: 04/12/2020 FINDINGS: Lungs: There is complete opacification of the left hemithorax. There is prominent vascularity of the right hilar vessels. Pleural space: No pneumothorax. No pleural effusion. Heart: Stable large cardiac shadow. Mediastinum: No abnormality noted. Bones/joints: No osseous destruction or sclerosis noted. IMPRESSION: There is now opacification of the left hemithorax. If the patient has not undergone left pneumonectomy, large pleural effusion or central obstructing neoplasm should be investigated with IV contrast CT. EXAM DESCRIPTION: CT CHEST WITHOUT CONTRAST CLINICAL HISTORY: Cough COMPARISON: 04/12/2020 TECHNIQUE: Axial CT images of the chest without IV contrast obtained from the thoracic inlet through the diaphragm. Coronal and sagittal reformatted images available. This exam was performed according to our departmental dose- optimization program, which includes automated exposure control, adjustment of the mA and/or kV according to patient size and/or use of iterative reconstruction technique. FINDINGS: Chest: Thyroid: No abnormalities of the visualized thyroid. Great Vessels: Great vessels have normal anatomic configuration. Thoracic Aorta: Atherosclerotic calcification of the thoracic aorta. Pulmonary arteries: Mild enlargement main pulmonary artery can be seen with pulmonary arterial hypertension. Heart: Coronary artery atherosclerosis. No cardiomegaly or significant pericardial effusion. Lymph Nodes: No enlarged mediastinal lymph nodes identified. Esophagus: No abnormalities of the esophagus identified Other: No additional findings. Lungs: Collapse of the left lung. Minimal right basilar dependent atelectasis. Suboptimal evaluation of previously visualized pulmonary nodules in the left lung. Pleura: Large left pleural effusion. No pneumothorax. Trachea/Airways: Senile airway calcifications. There is motion artifact however there appears opacification of the left mainstem bronchus. Bones: Multilevel degenerative spondylosis throughout the thoracic spine with facet arthropathy and degenerative disc height narrowing. Stable compression deformity of the T4 vertebral body. Osteoarthritic change of the shoulders. Upper Abdomen: Limited images of the upper abdomen demonstrate hepatic and splenic granulomas. No definite abnormalities of the adrenal glands or pancreas. No definite abnormalities of the gallbladder. Partial visualization of exophytic peripherally calcified left renal mass with central decreased density. IMPRESSION: 1. Large left pleural effusion with collapse of the left lung. Previously identified left lung nodules are not well evaluated on this study. 2. Possible opacification of the left mainstem bronchus which may be related to secretions or aspirated material. Images airways nodules is also not excluded. 3. Coronary artery atherosclerosis. 4. Partial visualization of exophytic peripherally calcified benign-appearing left renal mass with central decreased density. No definite interval change EXAM DESCRIPTION: RAD - Chest Single View - 12/01/2020 1:41 am CLINICAL HISTORY: COUGH Chest pain. COMPARISON: Chest Single View dated 11/30/2020; Chest Single View dated 04/12/2020; Chest Single View dated 07/29/2019; Chest Single View dated 07/16/2019; Thorax Wo Con dated 11/30/2020 FINDINGS: Portable technique limits examination quality. Complete opacification of the left lung is noted with mild mass effect of the cardiomediastinal structures to the right. This appears unchanged since prior study. Cardiac size cannot be adequately assessed. No displaced fractures. IMPRESSION: Complete opacification of left hemothorax. Conclusions/Impression: A/P: Continue the current POC and Medications other than the changes listed. AM Labs PRN. Recommend daily weight. Please see the orders for complete details. ESRD -Acute HD today Hypernatremia -HD TIW HTN with CKD/ CHF -Continue Metoprolol Diastolic CHF, chronic -HD TIW with UF -Low sodium diet Moderate malnutrition -Continue Nephrovite -Encourage nutrition with protein supplementation Anemia in CKD -Continue Retacrit PRASANNA/ Secondary HyperPTH -Continue Renvela -Continue Vitamin D3 Left hemothorax complicated by numerous pleural nodules -s/p chest tube Left renal mass -Stable
[2020-12-07] MEDS: PANTOPRAZOLE 40MG TABLET PO SCH (21:58)
[2020-12-07] MEDS: TEMAZEPAM 15 MG CAP PO PRN (21:58)
[2020-12-07] MEDS: GUAIFENESIN/DM 5 ML UCUP PO PRN (21:58)
--- NOTE | 2020-12-07 22:23 | PN ---
Date of Progress Note: 12/07/2020 The patient continues to be quite weak. According to the nurses and his , he has some trouble sw allowing both solids and liquids more so with the liquids. A consult will be obtained with this. He has also not had any therapy due to the significant pleural effusion. This can be reinst ituted in the morning. I have sent the CT results to his oncologist in [place]. According to his ra diologist, the nodules have significantly increased since the last exam, possibly contributing both t o the general weakness and pneumohemothorax. His hemoglobin remained stable and fluid is clear consi derably. He has had minimal breathing discomfort. The history obtained from the and the patien t had renal carcinoma, treated by Dr. Alan surgically about 5 years ago 3 years ago and th en noticed the nodules in the long less than year ago. These were biopsied and showed metastasis. W ith this in mind, placement has also been considered for SNF, however, have to be done where he could undergo dialysis. The patient's stated that in the past he says he does not want any chemother apy judgment until we see what Oncology says hopefully by tomorrow. HR/MODL Voice ID: [id number] Report ID: [id number]
[2020-12-08 04:16] LABS: Absolute Lymphocytes (CBC) 1.4 K/uL (0.7-4.9); Basophils % 0.4 % (0-1.3); Hematocrit 35.4 % (39.6-49.0); Lymphocytes % 13.2 % (15.3-44.8); MPV 8.2 fL (7.6-11.3); RBC Red Blood Cell Count 3.91 M/uL (4.33-5.43)
[2020-12-08] MEDS: ACETAMINOPHEN 500 MG TAB PO PRN ×2 (04:35→17:30)
[2020-12-08] MEDS: GUAIFENESIN/DM 5 ML UCUP PO PRN ×2 (04:35→20:04)
[2020-12-08 04:43] LABS: Potassium 3.6 mmol/L (3.5-5.1)
--- NOTE | 2020-12-08 07:32 | RAD REPORT ---
EXAM DESCRIPTION: RAD - Chest Single View - 12/08/2020 5:15 am CLINICAL HISTORY: LEFT chest tube, bloody effusion COMPARISON: December 07 examinations TECHNIQUE: AP portable chest image was obtained 12/08/2020 5:15 am . FINDINGS: Lung volumes are low. Chest tube remains in the left base. No measurable pneumothorax seen . An anterior pneumothorax can be occult on a portable examination. Left base pleural and parenchymal opacification is present with the pleural fluid or pleural blood co mponent further decreased from prior imaging. Heart and vasculature are normal. No acute bony abnormality seen. No acute aortic findings suspected . IMPRESSION: Decrease in the pleural fluid and/ or pleural blood since prior day imaging. Chest tube remains in the left base. No pneumothorax identified. Anterior pneumothorax can be occult on a portable exam.
[2020-12-08] MEDS: VITAMIN D 5,000 UNIT CAP PO SCH (09:44)
[2020-12-08] MEDS: SEVELAMER CARBONATE 800 MG TABLET PO SCH ×3 (09:44→17:00)
[2020-12-08] MEDS: METOPROLOL TAR 50 MG TAB PO SCH ×2 (09:44→20:07)
[2020-12-08] MEDS: MULTIVITAMINS,THERAPEUT 1 TAB PO SCH (09:44)
--- NOTE | 2020-12-08 12:11 | P.PN ---
Subjective Date of Service: 12/08/20 Chief Complaint: Left-sided hemothorax Patient has no new complaints Physical Examination - Vital Signs Temperature: 97.1 F Blood Pressure: 121/56 Pulse: 71 Respirations: 18 Pulse Ox (%): 93 - Physical Exam General: Alert, In no apparent distress, Cooperative Respiratory: Clear to auscultation bilaterally, Other (no air leak on CT) Assessment And Plan - Current Problems (Diagnosis) (1) Hemothorax Current Visit: Yes Status: Acute Plan: - will consider DC chest tube in AM - repeat chest x ray reviewed - Chest CT noted loculations, - Patient will benefit from thoracic surgery consult due to hemothorax and loculations - daily chest x-rays
[2020-12-08] MEDS: PANTOPRAZOLE 40MG TABLET PO SCH (20:05)
--- NOTE | 2020-12-08 20:05 | PN ---
Date of Progress Note: 12/08/2020 The patient appeared little bit stronger today. His vital signs are stable. Chest x-ray is basicall y stable. Consultation in regard to swallowing mechanism was normal. He will continue with dialysis and I am awaiting the oncology discussion with doctors in [place], then determine his placement. HR/MODL Voice ID: [id number] Report ID: [id number]
[2020-12-08] MEDS: TEMAZEPAM 15 MG CAP PO PRN (20:07)
--- NOTE | 2020-12-08 21:06 | P.PN ---
Date of Service: 12/08/20 Vital Signs Temp Pulse Resp BP Pulse Ox 98.1 F 68 17 117/56 L 98 12/08/20 16:00 12/08/20 16:00 12/08/20 16:00 12/08/20 20:07 12/08/20 16:00 Medications Acetaminophen (Acetaminophen 500 Mg Tab) 1,000 mg PO Q6H PRN PRN Reason: Pain scale 5-7 (Moderate) Last Admin: 12/08/20 17:30 Dose: 1,000 mg Documented by: Cholecalciferol (Vitamin D 5,000 Unit Cap) 5,000 unit PO DAILY BASSAM Last Admin: 12/08/20 09:44 Dose: 5,000 unit Documented by: Guaifenesin/Dextromethorphan (Guaifenesin/Dm 5 Ml Ucup) 10 ml PO Q6H PRN PRN Reason: COUGH Last Admin: 12/08/20 20:04 Dose: 10 ml Documented by: Heparin Sodium (Porcine) (Heparin 1,000 Unit/Ml Vial) 6,000 unit IV EVERY HD PRN PRN Reason: AFTER EACH Albumin Human (Albumin 25%) 50 mls @ 100 mls/hr IV EVERY HD BASSAM Last Admin: 12/07/20 10:30 Dose: 50 mls Documented by: Mannitol (Mannitol 25% 12.5 Gm/50 Ml Vial) 12.5 gm IV EVERY HD PRN PRN Reason: Titrate to SBP (MUST DEFINE) Metoprolol Tartrate (Metoprolol Tar 50 Mg Tab) 100 mg PO BID BASSAM Last Admin: 12/08/20 20:07 Dose: Not Given Documented by: Ondansetron HCl (Ondansetron 4 Mg/2 Ml Vial) 4 mg IV Q6H PRN PRN Reason: NAUSEA / VOMITING Pantoprazole Sodium (Pantoprazole 40mg Tablet) 40 mg PO 30 MIN BEFORE HS BASSAM; Protocol Last Admin: 12/08/20 20:05 Dose: 40 mg Documented by: Polyethylene Glycol (Polyethyl Gly 3350 17 Gm/Dose) 17 gm PO DAILY PRN PRN Reason: CONSTIPATION Last Admin: 12/03/20 17:10 Dose: 17 gm Documented by: Sevelamer Carbonate (Sevelamer Carbonate 800 Mg Tablet) 800 mg PO TIDWM BASSAM Last Admin: 12/08/20 17:00 Dose: Not Given Documented by: Sodium Chloride (Flush Normal Saline 10 Ml) 10 ml IV BID [facility] Last Admin: 12/08/20 20:08 Dose: 10 ml Documented by: Temazepam (Temazepam 15 Mg Cap) 30 mg PO BEDTIME PRN PRN Reason: INSOMNIA Last Admin: 12/08/20 20:07 Dose: 30 mg Documented by: Vitamin B Complex/Vit C/Folic Acid (Multivitamins,Therapeut 1 Tab) 1 tab PO DAILY [facility] Last Admin: 12/08/20 09:44 Dose: 1 tab Documented by: Microbiology Results 11/30/20 22:15 Blood - Blood Aerobic Blood Culture - Final 11/30/20 22:15 Blood - Blood Blood Culture Gram Stain - Final 11/30/20 22:15 Blood - Blood Anaerobic Blood Culture - Final No growth in 5 days. 11/30/20 22:00 Blood - Blood Aerobic Blood Culture - Final No growth in 5 days. 11/30/20 22:00 Blood - Blood Anaerobic Blood Culture - Final No growth in 5 days. Assessment/ Plan: Nephrology Fatigue and weakness. Persistent chest tube. No acute events overnight. Vitals, medications, blood work and imaging reviewed in the chart. General: Alert, Oriented x3, Cooperative HEENT: Atraumatic Neck: Supple Respiratory: Diminished Cardiovascular: Regular rate/rhythm Gastrointestinal: Soft and benign, Non-distended Musculoskeletal: No clubbing, No contractures Integumentary: No rashes, No cyanosis Neurological: Normal speech Laboratory Data (last 24 hrs) 11/30/20 21:45: PT 42.0 H, INR 3.61, APTT 46.2 H 11/30/20 21:45: Sodium 146 H, Potassium 4.1, BUN 22 H, Creatinine 4.31 H, Glucose 100 11/30/20 21:45: WBC 13.40 H, Hgb 10.9 L, Hct 35.0 L, Plt Count 252 Imagings Data: EXAM DESCRIPTION: XR Chest, 1 View CLINICAL HISTORY: DYSPNEA TECHNIQUE: Frontal view of the chest. COMPARISON: 04/12/2020 FINDINGS: Lungs: There is complete opacification of the left hemithorax. There is prominent vascularity of the right hilar vessels. Pleural space: No pneumothorax. No pleural effusion. Heart: Stable large cardiac shadow. Mediastinum: No abnormality noted. Bones/joints: No osseous destruction or sclerosis noted. IMPRESSION: There is now opacification of the left hemithorax. If the patient has not undergone left pneumonectomy, large pleural effusion or central obstructing neoplasm should be investigated with IV contrast CT. EXAM DESCRIPTION: CT CHEST WITHOUT CONTRAST CLINICAL HISTORY: Cough COMPARISON: 04/12/2020 TECHNIQUE: Axial CT images of the chest without IV contrast obtained from the thoracic inlet through the diaphragm. Coronal and sagittal reformatted images available. This exam was performed according to our departmental dose- optimization program, which includes automated exposure control, adjustment of the mA and/or kV according to patient size and/or use of iterative reconstruction technique. FINDINGS: Chest: Thyroid: No abnormalities of the visualized thyroid. Great Vessels: Great vessels have normal anatomic configuration. Thoracic Aorta: Atherosclerotic calcification of the thoracic aorta. Pulmonary arteries: Mild enlargement main pulmonary artery can be seen with pulmonary arterial hypertension. Heart: Coronary artery atherosclerosis. No cardiomegaly or significant pericardial effusion. Lymph Nodes: No enlarged mediastinal lymph nodes identified. Esophagus: No abnormalities of the esophagus identified Other: No additional findings. Lungs: Collapse of the left lung. Minimal right basilar dependent atelectasis. Suboptimal evaluation of previously visualized pulmonary nodules in the left lung. Pleura: Large left pleural effusion. No pneumothorax. Trachea/Airways: Senile airway calcifications. There is motion artifact however there appears opacification of the left mainstem bronchus. Bones: Multilevel degenerative spondylosis throughout the thoracic spine with facet arthropathy and degenerative disc height narrowing. Stable compression deformity of the T4 vertebral body. Osteoarthritic change of the shoulders. Upper Abdomen: Limited images of the upper abdomen demonstrate hepatic and splenic granulomas. No definite abnormalities of the adrenal glands or pancreas. No definite abnormalities of the gallbladder. Partial visualization of exophytic peripherally calcified left renal mass with central decreased density. IMPRESSION: 1. Large left pleural effusion with collapse of the left lung. Previously identified left lung nodules are not well evaluated on this study. 2. Possible opacification of the left mainstem bronchus which may be related to secretions or aspirated material. Images airways nodules is also not excluded. 3. Coronary artery atherosclerosis. 4. Partial visualization of exophytic peripherally calcified benign-appearing left renal mass with central decreased density. No definite interval change EXAM DESCRIPTION: RAD - Chest Single View - 12/01/2020 1:41 am CLINICAL HISTORY: COUGH Chest pain. COMPARISON: Chest Single View dated 11/30/2020; Chest Single View dated 04/12/2020; Chest Single View dated 07/29/2019; Chest Single View dated 07/16/2019; Thorax Wo Con dated 11/30/2020 FINDINGS: Portable technique limits examination quality. Complete opacification of the left lung is noted with mild mass effect of the cardiomediastinal structures to the right. This appears unchanged since prior study. Cardiac size cannot be adequately assessed. No displaced fractures. IMPRESSION: Complete opacification of left hemothorax. Conclusions/Impression: A/P: Continue the current POC and Medications other than the changes listed. AM Labs PRN. Recommend daily weight. Please see the orders for complete details. ESRD -Acute HD tomorrow. Hypernatremia -HD TIW HTN with CKD/ CHF -Continue Metoprolol Diastolic CHF, chronic -HD TIW with UF -Low sodium diet Moderate malnutrition -Continue Nephrovite -Encourage nutrition with protein supplementation Anemia in CKD -Continue Retacrit PRASANNA/ Secondary HyperPTH -Continue Renvela -Continue Vitamin D3 Left hemothorax complicated by numerous pleural nodules -s/p chest tube Left renal mass -Stable
[2020-12-09] MEDS: ACETAMINOPHEN 500 MG TAB PO PRN (00:15)
[2020-12-09] MEDS: GUAIFENESIN/DM 5 ML UCUP PO PRN ×2 (04:44→20:55)
--- NOTE | 2020-12-09 08:29 | RAD REPORT ---
[facility] CLINICAL HISTORY: Pleural effusion COMPARISON: December 08, 2020 FINDINGS: No significant change in the left pleural effusion. Left chest tube in place. A pneumothor ax is not seen. Right lung appears clear of acute infiltrate. Heart remains enlarged
[2020-12-09] MEDS: VITAMIN D 5,000 UNIT CAP PO SCH (08:35)
[2020-12-09] MEDS: MULTIVITAMINS,THERAPEUT 1 TAB PO SCH (08:35)
[2020-12-09] MEDS: METOPROLOL TAR 50 MG TAB PO SCH ×2 (08:35→20:56)
[2020-12-09] MEDS: SEVELAMER CARBONATE 800 MG TABLET PO SCH ×3 (08:35→17:00)
--- NOTE | 2020-12-09 09:15 | P.PN ---
Subjective Date of Service: 12/09/20 Chief Complaint: Left-sided hemothorax Patient has no new complaints, no shortness of breath Physical Examination - Vital Signs Temperature: 97.5 F Blood Pressure: 96/52 Pulse: 71 Respirations: 16 Pulse Ox (%): 97 - Physical Exam General: Alert, In no apparent distress, Cooperative Respiratory: Other (LEFT chest tube removed @ bedside today) Assessment And Plan - Current Problems (Diagnosis) (1) Hemothorax Current Visit: Yes Status: Acute Plan: - DC chest tube - repeat chest x ray reviewed, repeat in 6 hours - Chest CT noted loculations, - Patient will benefit from thoracic surgery consult due to hemothorax and loculations - daily chest x-rays
--- NOTE | 2020-12-09 09:43 | PN ---
Date of Progress Note: 12/09/2020 The patient is basically stable. As far as the chest condition is concerned, the tube was taken ranjit ier this morning, seems to tolerate so far. However, his general condition has deteriorated somewhat . Spoke to his oncologist. He felt to possibly see him as an outpatient, decide what to do. As far as the tumors are concerned, the patient's has told me in the past he said he did not want any treatment. We will revisit this later today. He is also developing some stage II pressure ulcers. His mobility is limited. His pain has somewhat increased. We will try tramadol to keep him comforta ble. Another chest tube is out. We will try and see if he can be okay for a SNF unit. HR/MODL Voice ID: [id number] Report ID: [id number]
--- NOTE | 2020-12-09 13:04 | P.PN ---
Subjective Date of Service: 12/09/20 Chief Complaint: Left-sided hemothorax Condition stable. CT on water seal Physical Examination - Vital Signs Temperature: 97.6 F Blood Pressure: 132/56 Pulse: 72 Respirations: 16 Pulse Ox (%): 96 - Physical Exam General: Unresponsive Neck: Supple Respiratory: Clear to auscultation bilaterally, Diminished (LEft side) Assessment & Plan - Problems (Diagnosis) (1) Hemothorax Current Visit: Yes Status: Acute Plan: Doign better. Plan to remove chest tube today. 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 Loculated effusion at the left base. Avoid all anticoagulants except low dose asprin. PRognosis poor. Refer to Thoracic surgeon as an outpatient. Lisandro not a surgical candidate PAthology neg
--- NOTE | 2020-12-09 14:46 | RAD REPORT ---
EXAM DESCRIPTION: RAD - Chest Single View - 12/09/2020 2:40 pm CLINICAL HISTORY: chest tube dc'd Chest pain. COMPARISON: Chest Single View dated 12/09/2020; Chest Single View dated 12/08/2020; Chest Single View dated 12/07/2020; Chest Single View dated 12/07/2020; Thorax W/ Con dated 12/06/2020 FINDINGS: Portable technique limits examination quality. Moderate left pleural effusion shows no significant change. Left-sided chest tube is no longer visual ized. No pneumothorax is present. Right lung is grossly clear. Heart size is mildly enlarged.
[2020-12-09] MEDS: EPOETIN ALFA-EPBX 4,000 UNIT/ML VIAL SQ SCH (17:00)
[2020-12-09] MEDS: TRAMADOL HCL 50 MG TAB PO PRN ×2 (17:21→21:20)
--- NOTE | 2020-12-09 19:30 | P.PN ---
Date of Service: 12/09/20 Vital Signs Temp Pulse Resp BP Pulse Ox 97.6 F 72 16 132/56 L 96 12/09/20 13:04 12/09/20 13:04 12/09/20 17:21 12/09/20 13:04 12/09/20 17:21 Medications Acetaminophen (Acetaminophen 500 Mg Tab) 1,000 mg PO Q6H PRN PRN Reason: Pain scale 5-7 (Moderate) Last Admin: 12/09/20 00:15 Dose: 1,000 mg Documented by: Cholecalciferol (Vitamin D 5,000 Unit Cap) 5,000 unit PO DAILY [facility]AM Last Admin: 12/09/20 08:35 Dose: 5,000 unit Documented by: Guaifenesin/Dextromethorphan (Guaifenesin/Dm 5 Ml Ucup) 10 ml PO Q6H PRN PRN Reason: COUGH Last Admin: 12/09/20 04:44 Dose: 10 ml Documented by: Heparin Sodium (Porcine) (Heparin 1,000 Unit/Ml Vial) 6,000 unit IV EVERY HD PRN PRN Reason: AFTER EACH Albumin Human (Albumin 25%) 50 mls @ 100 mls/hr IV EVERY HD BASSAM Last Admin: 12/07/20 10:30 Dose: 50 mls Documented by: Mannitol (Mannitol 25% 12.5 Gm/50 Ml Vial) 12.5 gm IV EVERY HD PRN PRN Reason: Titrate to SBP (MUST DEFINE) Metoprolol Tartrate (Metoprolol Tar 50 Mg Tab) 100 mg PO BID [facility]ASSAM Last Admin: 12/09/20 08:35 Dose: Not Given Documented by: Ondansetron HCl (Ondansetron 4 Mg/2 Ml Vial) 4 mg IV Q6H PRN PRN Reason: NAUSEA / VOMITING Pantoprazole Sodium (Pantoprazole 40mg Tablet) 40 mg PO 30 MIN BEFORE HS BASSAM; Protocol Last Admin: 12/08/20 20:05 Dose: 40 mg Documented by: Polyethylene Glycol (Polyethyl Gly 3350 17 Gm/Dose) 17 gm PO DAILY PRN PRN Reason: CONSTIPATION Last Admin: 12/03/20 17:10 Dose: 17 gm Documented by: Sevelamer Carbonate (Sevelamer Carbonate 800 Mg Tablet) 800 mg PO TIDWM [facility]AM Last Admin: 12/09/20 17:00 Dose: 800 mg Documented by: Sodium Chloride (Flush Normal Saline 10 Ml) 10 ml IV BID [facility] Last Admin: 12/09/20 08:36 Dose: 10 ml Documented by: Temazepam (Temazepam 15 Mg Cap) 30 mg PO BEDTIME PRN PRN Reason: INSOMNIA Last Admin: 12/08/20 20:07 Dose: 30 mg Documented by: Tramadol HCl (Tramadol Hcl 50 Mg Tab) 50 mg PO Q4HP PRN PRN Reason: Pain scale 5-7 (Moderate) Last Admin: 12/09/20 17:21 Dose: 50 mg Documented by: Vitamin B Complex/Vit C/Folic Acid (Multivitamins,Therapeut 1 Tab) 1 tab PO DAILY BASSAM Last Admin: 12/09/20 08:35 Dose: 1 tab Documented by: Microbiology Results 11/30/20 22:15 Blood - Blood Aerobic Blood Culture - Final 11/30/20 22:15 Blood - Blood Blood Culture Gram Stain - Final 11/30/20 22:15 Blood - Blood Anaerobic Blood Culture - Final No growth in 5 days. 11/30/20 22:00 Blood - Blood Aerobic Blood Culture - Final No growth in 5 days. 11/30/20 22:00 Blood - Blood Anaerobic Blood Culture - Final No growth in 5 days. Assessment/ Plan: Nephrology Fatigue and weakness. +Appetite No acute events overnight. Vitals, medications, blood work and imaging reviewed in the chart. General: Alert, Oriented x3, Cooperative HEENT: Atraumatic Neck: Supple Respiratory: Diminished Cardiovascular: Regular rate/rhythm Gastrointestinal: Soft and benign, Non-distended Musculoskeletal: No clubbing, No contractures Integumentary: No rashes, No cyanosis Neurological: Normal speech Laboratory Data (last 24 hrs) 11/30/20 21:45: PT 42.0 H, INR 3.61, APTT 46.2 H 11/30/20 21:45: Sodium 146 H, Potassium 4.1, BUN 22 H, Creatinine 4.31 H, Glucose 100 11/30/20 21:45: WBC 13.40 H, Hgb 10.9 L, Hct 35.0 L, Plt Count 252 Imagings Data: EXAM DESCRIPTION: XR Chest, 1 View CLINICAL HISTORY: DYSPNEA TECHNIQUE: Frontal view of the chest. COMPARISON: 04/12/2020 FINDINGS: Lungs: There is complete opacification of the left hemithorax. There is prominent vascularity of the right hilar vessels. Pleural space: No pneumothorax. No pleural effusion. Heart: Stable large cardiac shadow. Mediastinum: No abnormality noted. Bones/joints: No osseous destruction or sclerosis noted. IMPRESSION: There is now opacification of the left hemithorax. If the patient has not undergone left pneumonectomy, large pleural effusion or central obstructing neoplasm should be investigated with IV contrast CT. EXAM DESCRIPTION: CT CHEST WITHOUT CONTRAST CLINICAL HISTORY: Cough COMPARISON: 04/12/2020 TECHNIQUE: Axial CT images of the chest without IV contrast obtained from the thoracic inlet through the diaphragm. Coronal and sagittal reformatted images available. This exam was performed according to our departmental dose- optimization program, which includes automated exposure control, adjustment of the mA and/or kV according to patient size and/or use of iterative reconstruction technique. FINDINGS: Chest: Thyroid: No abnormalities of the visualized thyroid. Great Vessels: Great vessels have normal anatomic configuration. Thoracic Aorta: Atherosclerotic calcification of the thoracic aorta. Pulmonary arteries: Mild enlargement main pulmonary artery can be seen with pulmonary arterial hypertension. Heart: Coronary artery atherosclerosis. No cardiomegaly or significant pericardial effusion. Lymph Nodes: No enlarged mediastinal lymph nodes identified. Esophagus: No abnormalities of the esophagus identified Other: No additional findings. Lungs: Collapse of the left lung. Minimal right basilar dependent atelectasis. Suboptimal evaluation of previously visualized pulmonary nodules in the left lung. Pleura: Large left pleural effusion. No pneumothorax. Trachea/Airways: Senile airway calcifications. There is motion artifact however there appears opacification of the left mainstem bronchus. Bones: Multilevel degenerative spondylosis throughout the thoracic spine with facet arthropathy and degenerative disc height narrowing. Stable compression deformity of the T4 vertebral body. Osteoarthritic change of the shoulders. Upper Abdomen: Limited images of the upper abdomen demonstrate hepatic and splenic granulomas. No definite abnormalities of the adrenal glands or pancreas. No definite abnormalities of the gallbladder. Partial visualization of exophytic peripherally calcified left renal mass with central decreased density. IMPRESSION: 1. Large left pleural effusion with collapse of the left lung. Previously identified left lung nodules are not well evaluated on this study. 2. Possible opacification of the left mainstem bronchus which may be related to secretions or aspirated material. Images airways nodules is also not excluded. 3. Coronary artery atherosclerosis. 4. Partial visualization of exophytic peripherally calcified benign-appearing left renal mass with central decreased density. No definite interval change EXAM DESCRIPTION: RAD - Chest Single View - 12/01/2020 1:41 am CLINICAL HISTORY: COUGH Chest pain. COMPARISON: Chest Single View dated 11/30/2020; Chest Single View dated 04/12/2020; Chest Single View dated 07/29/2019; Chest Single View dated 07/16/2019; Thorax Wo Con dated 11/30/2020 FINDINGS: Portable technique limits examination quality. Complete opacification of the left lung is noted with mild mass effect of the cardiomediastinal structures to the right. This appears unchanged since prior study. Cardiac size cannot be adequately assessed. No displaced fractures. IMPRESSION: Complete opacification of left hemothorax. Conclusions/Impression: A/P: Continue the current POC and Medications other than the changes listed. AM Labs PRN. Recommend daily weight. Please see the orders for complete details. ESRD -Next HD on Saturday -Seen and examined on HD Hypernatremia -HD TIW HTN with CKD/ CHF -Continue Metoprolol Diastolic CHF, chronic -HD TIW with UF -Low sodium diet Moderate malnutrition -Continue Nephrovite -Encourage nutrition with protein supplementation Anemia in CKD -Continue Retacrit PRASANNA/ Secondary HyperPTH -Continue Renvela -Continue Vitamin D3 Left hemothorax complicated by numerous pleural nodules -s/p chest tube Left renal mass likely RCC with metastatic disease
[2020-12-09] MEDS: TEMAZEPAM 15 MG CAP PO PRN (20:55)
[2020-12-09] MEDS: NEPRO SHAKE 237 ML CAN PO SCH (20:56)
[2020-12-09] MEDS: PANTOPRAZOLE 40MG TABLET PO SCH (20:56)
[2020-12-10] MEDS: TRAMADOL HCL 50 MG TAB PO PRN ×3 (04:05→20:06)
[2020-12-10] MEDS: NEPRO SHAKE 237 ML CAN PO SCH ×3 (09:00→20:07)
[2020-12-10] MEDS: VITAMIN D 5,000 UNIT CAP PO SCH (10:15)
[2020-12-10] MEDS: MULTIVITAMINS,THERAPEUT 1 TAB PO SCH (10:16)
[2020-12-10] MEDS: SEVELAMER CARBONATE 800 MG TABLET PO SCH ×3 (10:16→17:44)
[2020-12-10] MEDS: METOPROLOL TAR 50 MG TAB PO SCH (10:21)
--- NOTE | 2020-12-10 11:24 | P.PN ---
Subjective Date of Service: 12/10/20 Chief Complaint: Left-sided hemothorax Patient has no new complaints, no shortness of breath, chest tube removed yesterday Physical Examination - Vital Signs Temperature: 98.1 F Blood Pressure: 114/47 Pulse: 74 Respirations: 26 Pulse Ox (%): 90 - Physical Exam General: Alert, In no apparent distress, Cooperative Respiratory: Diminished (on LEFT) Assessment And Plan - Current Problems (Diagnosis) (1) Hemothorax Current Visit: Yes Status: Acute Plan: - DC chest tube - chest x ray is of poor quality, no pneumothorax noted, effusion appears stable - Chest CT noted loculations, - Patient will benefit from thoracic surgery consult due to hemothorax and loculations - will sign off for now, call back with any issues
--- NOTE | 2020-12-10 11:56 | RAD REPORT ---
EXAM DESCRIPTION: RAD - Chest Single View - 12/10/2020 4:56 am CLINICAL HISTORY: LEFT chest tube, bloody effusion Chest pain. COMPARISON: Chest Single View dated 12/09/2020; Chest Single View dated 12/09/2020; Chest Single View dated 12/08/2020; Chest Single View dated 12/07/2020 FINDINGS: Portable technique current patient rotation to the left limits examination quality. Lobulated left pleural based masses are again seen. Left lung parenchyma is only mildly visible due t o rotation. Heart size is enlarged. Right lung is grossly clear.
[2020-12-10] MEDS: PANTOPRAZOLE 40MG TABLET PO SCH (20:06)
[2020-12-10] MEDS: TEMAZEPAM 15 MG CAP PO PRN (20:06)
[2020-12-11] MEDS: ACETAMINOPHEN 500 MG TAB PO PRN ×2 (08:21→20:11)
[2020-12-11] MEDS: VITAMIN D 5,000 UNIT CAP PO SCH (08:22)
[2020-12-11] MEDS: SEVELAMER CARBONATE 800 MG TABLET PO SCH ×3 (08:23→17:15)
[2020-12-11] MEDS: METOPROLOL TAR 50 MG TAB PO SCH ×2 (08:23→20:11)
[2020-12-11] MEDS: NEPRO SHAKE 237 ML CAN PO SCH ×3 (08:23→20:11)
[2020-12-11] MEDS: MULTIVITAMINS,THERAPEUT 1 TAB PO SCH (08:23)
--- NOTE | 2020-12-11 08:27 | RAD REPORT ---
EXAM DESCRIPTION: [facility] Single View12/11/2020 6:48 am CLINICAL HISTORY: Pleural effusion COMPARISON: December 10, 2000 FINDINGS: Left pleural effusion and left pleural mass are again demonstrated. Tube overlies the left hemithorax. The right appears clear of acute infiltrate. The heart remains enlarged
--- NOTE | 2020-12-11 13:12 | PN ---
Date of Progress Note: 12/11/2020 The patient is basically status quo. He is orientated, still quite weak and anorectic. Discussion w ith his in regard to end-of-life care was held, everything from hospice to SNF, awaiting insuran ce evaluation as well. He has become hypotensive with beta-west and being held in the last 2 dose s. We will reinstitute 50 mg b.i.d. if in fact systolic is over 100. HR/MODL Voice ID: [id number] Report ID: [id number]
[2020-12-11] MEDS: TRAMADOL HCL 50 MG TAB PO PRN (17:52)
[2020-12-11] MEDS: PANTOPRAZOLE 40MG TABLET PO SCH (20:10)
[2020-12-11] MEDS: TEMAZEPAM 15 MG CAP PO PRN (20:10)
--- NOTE | 2020-12-11 20:41 | PN ---
Date of Progress Note: 12/11/2020 Subjective: The patient is seen at bedside. No events reported. The patient has been having hypote nsion and blood pressure medications have been held per Dr. Love. The patient has no acute compla ints at this time. His is also at the bedside. Objective: Vital Signs: Blood pressure 96/56, pulse 68, afebrile. General: No acute distress. Heart: Regular rate and rhythm. No murmurs, rubs, gallops. Lungs: Decreased breath sounds at the left base and mid lung dumont. Abdomen: Soft, nontender. Extremities: Chronic stasis changes of the bilateral lower extremities. The patient was also being changed at the time that I came and it does appear that he has excoriation of the parasacral area. Laboratory Data: Serum chemistry last checked on the showed BUN and creatinine of 34/6.5. Medications: Reviewed. Impression: 1.End-stage renal disease, on hemodialysis. 2.Hypotension. 3.Parasacral skin breakdown. 4.History of malignancy. Plan: The patient will have dialysis tomorrow. The patient's hypotension if remaining low level, ma y require albumin supplementation to be able to initiate dialysis. We will defer the antihypertensive management as well as any possible sepsis. Further workup and recommendation per pr imary team. /LISA Voice ID: [id number] Report ID: [id number]
[2020-12-12 04:03] LABS: Absolute Lymphocytes (CBC) 1.3 K/uL (0.7-4.9); Basophils % 0.2 % (0-1.3); Hematocrit 32.9 % (39.6-49.0); Lymphocytes % 9.8 % (15.3-44.8); MPV 8.4 fL (7.6-11.3); RBC Red Blood Cell Count 3.63 M/uL (4.33-5.43)
[2020-12-12 04:41] LABS: Potassium 3.9 mmol/L (3.5-5.1)
--- NOTE | 2020-12-12 08:10 | ECHO ---
HEIGHT: 6 ft 2 in WEIGHT: 250 lb 0 oz DATE OF STUDY: 12/08/[address]: Keyon Love MD 2-DIMENSIONAL: YES M.MODE: YES DOPPLER: YES COLOR FLOW: YES TDS: YES PORTABLE: DEFINITY: BUBBLE STUDY: DIAGNOSIS: COUGH CARDIAC HISTORY: CATHERIZATION: NO SURGERY: NO PROSTHETIC VALVE: NO PACEMAKER: NO MEASUREMENTS (cm) DIASTOLIC (NORMALS) SYSTOLIC (NORMALS) IVSd (0.6-1.2) LA Diam (1.9-4.0) LVEF 55-60% LVIDd (3.5-5.7) LVIDs (2.0-3.5) %FS % LVPWd (0.6-1.2) Ao Diam (2.0-3.7) 2 DIMENSIONAL ASSESSMENT: RIGHT ATRIUM: LEFT ATRIUM: RIGHT VENTRICLE: LEFT VENTRICLE: TRICUSPID VALVE: MITRAL VALVE: PULMONIC VALVE: AORTIC VALVE: PERICARDIAL EFFUSION: AORTIC ROOT: LEFT VENTRICULAR WALL MOTION: DOPPLER/COLOR FLOW: COMMENTS: TECHNICALLY DIFFICULT STUDY. GROSSLY NORMAL LEFT VENTRICULAR EJECTION FRACTION. NO EFFUSION. TECHNOLOGIST: SRINIVAS MARIE
--- NOTE | 2020-12-12 08:50 | RAD REPORT ---
EXAM DESCRIPTION: RAD - Chest Single View - 12/12/2020 6:33 am CLINICAL HISTORY: LEFT chest tube, bloody effusion Chest pain. COMPARISON: Chest Single View dated 12/11/2020; Chest Single View dated 12/10/2020; Chest Single View dated 12/09/2020; Chest Single View dated 12/09/2020 FINDINGS: Portable technique limits examination quality. Near complete opacification of the left hemithorax is seen. The right lung is grossly clear. Heart is moderately enlarged in size. Old traumatic changes affect the proximal right humerus. IMPRESSION: Near complete opacification of the left hemithorax is noted which is probably related to increasing pleural fluid.
[2020-12-12] MEDS: NEPRO SHAKE 237 ML CAN PO SCH ×3 (09:00→21:00)
[2020-12-12] MEDS: METOPROLOL TAR 50 MG TAB PO SCH (09:00)
[2020-12-12] MEDS: VITAMIN D 5,000 UNIT CAP PO SCH (10:10)
[2020-12-12] MEDS: SEVELAMER CARBONATE 800 MG TABLET PO SCH ×3 (10:11→17:39)
[2020-12-12] MEDS: TRAMADOL HCL 50 MG TAB PO PRN ×2 (10:11→17:39)
[2020-12-12] MEDS: MULTIVITAMINS,THERAPEUT 1 TAB PO SCH (10:15)
--- NOTE | 2020-12-12 11:09 | RAD REPORT ---
EXAM DESCRIPTION: RAD - Chest Single View - 12/12/2020 11:00 am CLINICAL HISTORY: pleural effusion Chest pain. COMPARISON: Chest Single View dated 12/12/2020; Chest Single View dated 12/11/2020; Chest Single View dated 12/10/2020; Chest Single View dated 12/09/2020 FINDINGS: Portable technique limits examination quality. The examination was performed in a more upright position to help better assess the amount of pleural effusion on the left. In this position, the pleural effusion appears moderate in size and similar to the 12/11/2020 study. There is moderate consolidation seen in the right mid lung, which appears mildl y worse than on the prior study.
[2020-12-12] MEDS: EPOETIN ALFA-EPBX 4,000 UNIT/ML VIAL SQ SCH (17:00)
--- NOTE | 2020-12-12 19:58 | PN ---
Date of Progress Note: 12/12/2020 The patient continues to slowly generally deteriorate as far as the lungs is concerned with slight in crease in fluid in his general condition. Still hypotensive. Discussed dialysis with washer blanket w ith possible addition of albumin. The patient is also on the insurance question for SNF unit in [facility]. We will continue to hold his blood pressure medicine, beta west as indicated. HR/MODL Voice ID: [id number] Report ID: [id number]
--- NOTE | 2020-12-12 20:40 | P.PN ---
Date of Service: 12/12/20 Vital Signs Temp Pulse Resp BP Pulse Ox 97.7 F 67 20 115/51 L 95 12/12/20 16:00 12/12/20 16:00 12/12/20 18:33 12/12/20 16:00 12/12/20 18:33 Medications Acetaminophen (Acetaminophen 500 Mg Tab) 1,000 mg PO Q6H PRN PRN Reason: Pain scale 5-7 (Moderate) Last Admin: 12/11/20 20:11 Dose: 1,000 mg Documented by: Cholecalciferol (Vitamin D 5,000 Unit Cap) 5,000 unit PO DAILY BASSAM Last Admin: 12/12/20 10:10 Dose: 5,000 unit Documented by: Enteral Nutritional Formula (Nepro Shake 237 Ml Can) 237 ml PO TID BASSAM Last Admin: 12/12/20 14:00 Dose: 237 ml Documented by: Guaifenesin/Dextromethorphan (Guaifenesin/Dm 5 Ml Ucup) 10 ml PO Q6H PRN PRN Reason: COUGH Last Admin: 12/09/20 20:55 Dose: 10 ml Documented by: Heparin Sodium (Porcine) (Heparin 1,000 Unit/Ml Vial) 6,000 unit IV EVERY HD PRN PRN Reason: AFTER EACH Albumin Human (Albumin 25%) 50 mls @ 100 mls/hr IV EVERY HD BASSAM Last Admin: 12/07/20 10:30 Dose: 50 mls Documented by: Mannitol (Mannitol 25% 12.5 Gm/50 Ml Vial) 12.5 gm IV EVERY HD PRN PRN Reason: Titrate to SBP (MUST DEFINE) Metoprolol Tartrate (Metoprolol Tar 50 Mg Tab) 50 mg PO BID BASSAM Last Admin: 12/12/20 09:00 Dose: Not Given Documented by: Ondansetron HCl (Ondansetron 4 Mg/2 Ml Vial) 4 mg IV Q6H PRN PRN Reason: NAUSEA / VOMITING Pantoprazole Sodium (Pantoprazole 40mg Tablet) 40 mg PO 30 MIN BEFORE HS BASSAM; Protocol Last Admin: 12/11/20 20:10 Dose: 40 mg Documented by: Polyethylene Glycol (Polyethyl Gly 3350 17 Gm/Dose) 17 gm PO DAILY PRN PRN Reason: CONSTIPATION Last Admin: 12/03/20 17:10 Dose: 17 gm Documented by: Sevelamer Carbonate (Sevelamer Carbonate 800 Mg Tablet) 800 mg PO TIDWM [facility] Last Admin: 12/12/20 17:39 Dose: 800 mg Documented by: Sodium Chloride (Flush Normal Saline 10 Ml) 10 ml IV BID [facility] Last Admin: 12/12/20 09:00 Dose: 10 ml Documented by: Tramadol HCl (Tramadol Hcl 50 Mg Tab) 50 mg PO Q4HP PRN PRN Reason: Pain scale 5-7 (Moderate) Last Admin: 12/12/20 17:39 Dose: 50 mg Documented by: Vitamin B Complex/Vit C/Folic Acid (Multivitamins,Therapeut 1 Tab) 1 tab PO DAILY [facility] Last Admin: 12/12/20 10:15 Dose: 1 tab Documented by: Microbiology Results 11/30/20 22:15 Blood - Blood Aerobic Blood Culture - Final 11/30/20 22:15 Blood - Blood Blood Culture Gram Stain - Final 11/30/20 22:15 Blood - Blood Anaerobic Blood Culture - Final No growth in 5 days. 11/30/20 22:00 Blood - Blood Aerobic Blood Culture - Final No growth in 5 days. 11/30/20 22:00 Blood - Blood Anaerobic Blood Culture - Final No growth in 5 days. Assessment/ Plan: Nephrology Fatigue and weakness. +Appetite No acute events overnight. Vitals, medications, blood work and imaging reviewed in the chart. General: Alert, Oriented x3, Cooperative HEENT: Atraumatic Neck: Supple Respiratory: Diminished Cardiovascular: Regular rate/rhythm Gastrointestinal: Soft and benign, Non-distended Musculoskeletal: No clubbing, No contractures Integumentary: No rashes, No cyanosis Neurological: Normal speech Laboratory Data (last 24 hrs) 11/30/20 21:45: PT 42.0 H, INR 3.61, APTT 46.2 H 11/30/20 21:45: Sodium 146 H, Potassium 4.1, BUN 22 H, Creatinine 4.31 H, Glucose 100 11/30/20 21:45: WBC 13.40 H, Hgb 10.9 L, Hct 35.0 L, Plt Count 252 Imagings Data: EXAM DESCRIPTION: XR Chest, 1 View CLINICAL HISTORY: DYSPNEA TECHNIQUE: Frontal view of the chest. COMPARISON: 04/12/2020 FINDINGS: Lungs: There is complete opacification of the left hemithorax. There is prominent vascularity of the right hilar vessels. Pleural space: No pneumothorax. No pleural effusion. Heart: Stable large cardiac shadow. Mediastinum: No abnormality noted. Bones/joints: No osseous destruction or sclerosis noted. IMPRESSION: There is now opacification of the left hemithorax. If the patient has not undergone left pneumonectomy, large pleural effusion or central obstructing neoplasm should be investigated with IV contrast CT. EXAM DESCRIPTION: CT CHEST WITHOUT CONTRAST CLINICAL HISTORY: Cough COMPARISON: 04/12/2020 TECHNIQUE: Axial CT images of the chest without IV contrast obtained from the thoracic inlet through the diaphragm. Coronal and sagittal reformatted images available. This exam was performed according to our departmental dose- optimization program, which includes automated exposure control, adjustment of the mA and/or kV according to patient size and/or use of iterative reconstruction technique. FINDINGS: Chest: Thyroid: No abnormalities of the visualized thyroid. Great Vessels: Great vessels have normal anatomic configuration. Thoracic Aorta: Atherosclerotic calcification of the thoracic aorta. Pulmonary arteries: Mild enlargement main pulmonary artery can be seen with pulmonary arterial hypertension. Heart: Coronary artery atherosclerosis. No cardiomegaly or significant pericardial effusion. Lymph Nodes: No enlarged mediastinal lymph nodes identified. Esophagus: No abnormalities of the esophagus identified Other: No additional findings. Lungs: Collapse of the left lung. Minimal right basilar dependent atelectasis. Suboptimal evaluation of previously visualized pulmonary nodules in the left lung. Pleura: Large left pleural effusion. No pneumothorax. Trachea/Airways: Senile airway calcifications. There is motion artifact however there appears opacification of the left mainstem bronchus. Bones: Multilevel degenerative spondylosis throughout the thoracic spine with facet arthropathy and degenerative disc height narrowing. Stable compression deformity of the T4 vertebral body. Osteoarthritic change of the shoulders. Upper Abdomen: Limited images of the upper abdomen demonstrate hepatic and splenic granulomas. No definite abnormalities of the adrenal glands or pancreas. No definite abnormalities of the gallbladder. Partial visualization of exophytic peripherally calcified left renal mass with central decreased density. IMPRESSION: 1. Large left pleural effusion with collapse of the left lung. Previously identified left lung nodules are not well evaluated on this study. 2. Possible opacification of the left mainstem bronchus which may be related to secretions or aspirated material. Images airways nodules is also not excluded. 3. Coronary artery atherosclerosis. 4. Partial visualization of exophytic peripherally calcified benign-appearing left renal mass with central decreased density. No definite interval change EXAM DESCRIPTION: RAD - Chest Single View - 12/01/2020 1:41 am CLINICAL HISTORY: COUGH Chest pain. COMPARISON: Chest Single View dated 11/30/2020; Chest Single View dated 04/12/2020; Chest Single View dated 07/29/2019; Chest Single View dated 07/16/2019; Thorax Wo Con dated 11/30/2020 FINDINGS: Portable technique limits examination quality. Complete opacification of the left lung is noted with mild mass effect of the cardiomediastinal structures to the right. This appears unchanged since prior study. Cardiac size cannot be adequately assessed. No displaced fractures. IMPRESSION: Complete opacification of left hemothorax. Conclusions/Impression: A/P: Continue the current POC and Medications other than the changes listed. AM Labs PRN. Recommend daily weight. Please see the orders for complete details. 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 Love Plan for SNF placement
[2020-12-13] MEDS: TRAMADOL HCL 50 MG TAB PO PRN ×5 (00:48→20:59)
[2020-12-13] MEDS: PANTOPRAZOLE 40MG TABLET PO SCH ×2 (00:49→20:58)
[2020-12-13] MEDS: METOPROLOL TAR 50 MG TAB PO SCH ×3 (00:50→20:58)
--- NOTE | 2020-12-13 07:16 | RAD REPORT ---
EXAM DESCRIPTION: RAD - Chest Single View - 12/13/2020 5:30 am CLINICAL HISTORY: LEFT chest tube, bloody effusion COMPARISON: Portable December 12, portable November 22, portable December 11 TECHNIQUE: AP portable chest image was obtained 12/13/2020 5:30 am . FINDINGS: Lung volumes are low. There is no complete opacification of the left hemithorax. Any indwe lling chest tube is obscured. Trachea is in the midline. Heart is obscured by the left belén thorax op acification. Low lung volume right lung field shows no new or progressive finding. No measurable righ t-sided pleural effusion. No pneumothorax seen. IMPRESSION: Reaccumulation of fluid results in complete opacification of the left hemithorax. Any indwelling chest tube is obscured by the left lung field density.
[2020-12-13] MEDS: NEPRO SHAKE 237 ML CAN PO SCH ×3 (08:46→21:00)
[2020-12-13] MEDS: MULTIVITAMINS,THERAPEUT 1 TAB PO SCH (08:48)
[2020-12-13] MEDS: SEVELAMER CARBONATE 800 MG TABLET PO SCH ×3 (08:48→17:01)
[2020-12-13] MEDS: VITAMIN D 5,000 UNIT CAP PO SCH (08:48)
--- NOTE | 2020-12-13 10:05 | RAD REPORT ---
EXAM DESCRIPTION: RAD - Chest Single View - 12/13/2020 9:56 am CLINICAL HISTORY: pleural effusions COMPARISON: December 13December 12 TECHNIQUE: AP portable chest image was obtained 12/13/2020 9:56 am . FINDINGS: Portable imaging of the chest was obtained with the patient fully upright. There remains l eft hemithorax opacification from apex to base. Heart is obscured by the pleural fluid and atelectasi s changes. Appearance is not clearly different from the earlier day examination. No pneumothorax. Right lung field remains clear. Trachea is in the midline. Delete select IMPRESSION: Left hemithorax remains fully opacified with the patient in a fully upright position.
[2020-12-13] MEDS: ACETAMINOPHEN 500 MG TAB PO PRN (10:32)
--- NOTE | 2020-12-13 20:02 | PN ---
Date of Progress Note: 12/13/2020 The patient's chest x-ray shows complete opacification. Obviously he is not on Coumadin. The primar y source is renal cell cancer with metastasis. In retrospect, it is possible that this was the origi nal cause, possibly amplified by the Coumadin. In any event with complete opacification quickly afte r removing of the chest tube and this situation was discussed with the family, who felt hospice would be indicated. Possibility however of home dialysis versus hospital dialysis on hospice was consider ed and this will be evaluated, and depending on the results, the patient will either be in hospice or home with home dialysis. The prognosis is very poor with a diagnosis of left-sided hemothorax. The patient was septic initially with a temperature, however this was rapidly improved with IV antibioti cs and IV fluids. Possibility of aspiration was raised at that time, however, again in retrospect th is is unlikely. HR/MODL Voice ID: [id number] Report ID: [id number]
--- NOTE | 2020-12-13 21:14 | P.PN ---
Date of Service: 12/13/20 Vital Signs Temp Pulse Resp BP Pulse Ox 97.5 F 95 H 24 H 169/61 H 99 12/13/20 20:00 12/13/20 20:58 12/13/20 20:59 12/13/20 20:58 12/13/20 20:59 Medications Acetaminophen (Acetaminophen 500 Mg Tab) 1,000 mg PO Q6H PRN PRN Reason: Pain scale 5-7 (Moderate) Last Admin: 12/13/20 10:32 Dose: 1,000 mg Documented by: Cholecalciferol (Vitamin D 5,000 Unit Cap) 5,000 unit PO DAILY BASSAM Last Admin: 12/13/20 08:48 Dose: 5,000 unit Documented by: Enteral Nutritional Formula (Nepro Shake 237 Ml Can) 237 ml PO TID BASSAM Last Admin: 12/13/20 21:00 Dose: Not Given Documented by: Guaifenesin/Dextromethorphan (Guaifenesin/Dm 5 Ml Ucup) 10 ml PO Q6H PRN PRN Reason: COUGH Last Admin: 12/09/20 20:55 Dose: 10 ml Documented by: Heparin Sodium (Porcine) (Heparin 1,000 Unit/Ml Vial) 6,000 unit IV EVERY HD PRN PRN Reason: AFTER EACH Albumin Human (Albumin 25%) 50 mls @ 100 mls/hr IV EVERY HD BASSAM Last Admin: 12/07/20 10:30 Dose: 50 mls Documented by: Mannitol (Mannitol 25% 12.5 Gm/50 Ml Vial) 12.5 gm IV EVERY HD PRN PRN Reason: Titrate to SBP (MUST DEFINE) Metoprolol Tartrate (Metoprolol Tar 50 Mg Tab) 50 mg PO BID BASSAM Last Admin: 12/13/20 20:58 Dose: 50 mg Documented by: Ondansetron HCl (Ondansetron 4 Mg/2 Ml Vial) 4 mg IV Q6H PRN PRN Reason: NAUSEA / VOMITING Pantoprazole Sodium (Pantoprazole 40mg Tablet) 40 mg PO 30 MIN BEFORE HS BASSAM; Protocol Last Admin: 12/13/20 20:58 Dose: 40 mg Documented by: Polyethylene Glycol (Polyethyl Gly 3350 17 Gm/Dose) 17 gm PO DAILY PRN PRN Reason: CONSTIPATION Last Admin: 12/03/20 17:10 Dose: 17 gm Documented by: Sevelamer Carbonate (Sevelamer Carbonate 800 Mg Tablet) 800 mg PO TIDWM [facility] Last Admin: 12/13/20 17:01 Dose: 800 mg Documented by: Sodium Chloride (Flush Normal Saline 10 Ml) 10 ml IV BID [facility] Last Admin: 12/13/20 21:00 Dose: 10 ml Documented by: Tramadol HCl (Tramadol Hcl 50 Mg Tab) 50 mg PO Q4HP PRN PRN Reason: Pain scale 5-7 (Moderate) Last Admin: 12/13/20 20:59 Dose: 50 mg Documented by: Vitamin B Complex/Vit C/Folic Acid (Multivitamins,Therapeut 1 Tab) 1 tab PO DAILY [facility] Last Admin: 12/13/20 08:48 Dose: 1 tab Documented by: Microbiology Results 11/30/20 22:15 Blood - Blood Aerobic Blood Culture - Final 11/30/20 22:15 Blood - Blood Blood Culture Gram Stain - Final 11/30/20 22:15 Blood - Blood Anaerobic Blood Culture - Final No growth in 5 days. 11/30/20 22:00 Blood - Blood Aerobic Blood Culture - Final No growth in 5 days. 11/30/20 22:00 Blood - Blood Anaerobic Blood Culture - Final No growth in 5 days. Assessment/ Plan: Nephrology Fatigue and weakness. No CP. No acute events overnight. Vitals, medications, blood work and imaging reviewed in the chart. General: Alert, Oriented x3, Cooperative HEENT: Atraumatic Neck: Supple Respiratory: Diminished Cardiovascular: Regular rate/rhythm Gastrointestinal: Soft and benign, Non-distended Musculoskeletal: No clubbing, No contractures Integumentary: No rashes, No cyanosis Neurological: Normal speech Laboratory Data (last 24 hrs) 11/30/20 21:45: PT 42.0 H, INR 3.61, APTT 46.2 H 11/30/20 21:45: Sodium 146 H, Potassium 4.1, BUN 22 H, Creatinine 4.31 H, Glucose 100 11/30/20 21:45: WBC 13.40 H, Hgb 10.9 L, Hct 35.0 L, Plt Count 252 Imagings Data: EXAM DESCRIPTION: XR Chest, 1 View CLINICAL HISTORY: DYSPNEA TECHNIQUE: Frontal view of the chest. COMPARISON: 04/12/2020 FINDINGS: Lungs: There is complete opacification of the left hemithorax. There is prominent vascularity of the right hilar vessels. Pleural space: No pneumothorax. No pleural effusion. Heart: Stable large cardiac shadow. Mediastinum: No abnormality noted. Bones/joints: No osseous destruction or sclerosis noted. IMPRESSION: There is now opacification of the left hemithorax. If the patient has not undergone left pneumonectomy, large pleural effusion or central obstructing neoplasm should be investigated with IV contrast CT. EXAM DESCRIPTION: CT CHEST WITHOUT CONTRAST CLINICAL HISTORY: Cough COMPARISON: 04/12/2020 TECHNIQUE: Axial CT images of the chest without IV contrast obtained from the thoracic inlet through the diaphragm. Coronal and sagittal reformatted images available. This exam was performed according to our departmental dose- optimization program, which includes automated exposure control, adjustment of the mA and/or kV according to patient size and/or use of iterative reconstruction technique. FINDINGS: Chest: Thyroid: No abnormalities of the visualized thyroid. Great Vessels: Great vessels have normal anatomic configuration. Thoracic Aorta: Atherosclerotic calcification of the thoracic aorta. Pulmonary arteries: Mild enlargement main pulmonary artery can be seen with pulmonary arterial hypertension. Heart: Coronary artery atherosclerosis. No cardiomegaly or significant pericardial effusion. Lymph Nodes: No enlarged mediastinal lymph nodes identified. Esophagus: No abnormalities of the esophagus identified Other: No additional findings. Lungs: Collapse of the left lung. Minimal right basilar dependent atelectasis. Suboptimal evaluation of previously visualized pulmonary nodules in the left lung. Pleura: Large left pleural effusion. No pneumothorax. Trachea/Airways: Senile airway calcifications. There is motion artifact however there appears opacification of the left mainstem bronchus. Bones: Multilevel degenerative spondylosis throughout the thoracic spine with facet arthropathy and degenerative disc height narrowing. Stable compression deformity of the T4 vertebral body. Osteoarthritic change of the shoulders. Upper Abdomen: Limited images of the upper abdomen demonstrate hepatic and splenic granulomas. No definite abnormalities of the adrenal glands or pancreas. No definite abnormalities of the gallbladder. Partial visualization of exophytic peripherally calcified left renal mass with central decreased density. IMPRESSION: 1. Large left pleural effusion with collapse of the left lung. Previously identified left lung nodules are not well evaluated on this study. 2. Possible opacification of the left mainstem bronchus which may be related to secretions or aspirated material. Images airways nodules is also not excluded. 3. Coronary artery atherosclerosis. 4. Partial visualization of exophytic peripherally calcified benign-appearing left renal mass with central decreased density. No definite interval change EXAM DESCRIPTION: RAD - Chest Single View - 12/01/2020 1:41 am CLINICAL HISTORY: COUGH Chest pain. COMPARISON: Chest Single View dated 11/30/2020; Chest Single View dated 04/12/2020; Chest Single View dated 07/29/2019; Chest Single View dated 07/16/2019; Thorax Wo Con dated 11/30/2020 FINDINGS: Portable technique limits examination quality. Complete opacification of the left lung is noted with mild mass effect of the cardiomediastinal structures to the right. This appears unchanged since prior study. Cardiac size cannot be adequately assessed. No displaced fractures. IMPRESSION: Complete opacification of left hemothorax. Conclusions/Impression: A/P: Continue the current POC and Medications other than the changes listed. AM Labs PRN. Recommend daily weight. Please see the orders for complete details. 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
[2020-12-14] MEDS: TRAMADOL HCL 50 MG TAB PO PRN ×4 (00:40→12:29)
[2020-12-14 04:11] LABS: Absolute Lymphocytes (CBC) 1.2 K/uL (0.7-4.9); Basophils % 0.2 % (0-1.3); Hematocrit 30.1 % (39.6-49.0); Lymphocytes % 9.7 % (15.3-44.8); MPV 8.2 fL (7.6-11.3); RBC Red Blood Cell Count 3.41 M/uL (4.33-5.43)
[2020-12-14 04:37] LABS: Albumin 2.6 g/dL (3.4-5.0); Bilirubin Total 0.5 mg/dL (0.2-1.0); Magnesium 2.3 mg/dL (1.8-2.4); Phosphorus 5.8 mg/dL (2.5-4.9); Potassium 4.2 mmol/L (3.5-5.1); Protein, Total 6.7 g/dL (6.4-8.2); Uric Acid 4.3 mg/dL (3.5-7.2)
--- NOTE | 2020-12-14 05:54 | RAD REPORT ---
[facility] CLINICAL HISTORY: Pleural effusion COMPARISON: December 13, 2020 FINDINGS: Left thoracentesis likely has been performed. A pneumothorax is not seen. Large amount le ft pleural effusion has been evacuated. A left chest tube is not clearly seen. If 1 is present it likely lies within left lower hemithorax an d is obscured by residual pleural effusion/mass.
[2020-12-14] MEDS: METOPROLOL TAR 50 MG TAB PO SCH (08:44)
[2020-12-14] MEDS: VITAMIN D 5,000 UNIT CAP PO SCH (08:46)
[2020-12-14] MEDS: MULTIVITAMINS,THERAPEUT 1 TAB PO SCH (08:46)
[2020-12-14] MEDS: SEVELAMER CARBONATE 800 MG TABLET PO SCH ×3 (08:46→16:14)
[2020-12-14] MEDS: NEPRO SHAKE 237 ML CAN PO SCH ×2 (08:47→13:07)
[2020-12-14 11:32] VITALS: O2SAT 95
[2020-12-14] MEDS: EPOETIN ALFA-EPBX 4,000 UNIT/ML VIAL SQ SCH (16:14)
[2020-12-14 16:21] VITALS: BP 82/47; TEMP 98.1
[2020-12-14] MEDS ORDERED: HYDROMORPHONE HCL 0.5 MG/0.5 ML INJ IV PRN (16:46)
--- NOTE | 2020-12-14 21:12 | PN ---
Date of Progress Note: 12/14/2020 After much discussion with the family, it was felt that he will be placed in hospice, which precludes dialysis. However, according to the , the patient says he does not want any further dialysis. In any event, he will be admitted to the hospice. In the meantime, Dilaudid will be given IV to keep him comfortable until seen by the team from hospice. Chest x-ray is basically status quo. He will be paced on the 5 day in-hospital hospice program once accepted. HR/MODL Voice ID: [id number] Report ID: [id number]
--- NOTE | 2020-12-14 22:58 | P.PN ---
Date of Service: 12/14/20 Vital Signs Temp Pulse Resp BP Pulse Ox 98.1 F 78 16 82/47 L 94 12/14/20 16:00 12/14/20 16:00 12/14/20 17:19 12/14/20 16:00 12/14/20 17:19 Microbiology Results 11/30/20 22:15 Blood - Blood Aerobic Blood Culture - Final 11/30/20 22:15 Blood - Blood Blood Culture Gram Stain - Final 11/30/20 22:15 Blood - Blood Anaerobic Blood Culture - Final No growth in 5 days. 11/30/20 22:00 Blood - Blood Aerobic Blood Culture - Final No growth in 5 days. 11/30/20 22:00 Blood - Blood Anaerobic Blood Culture - Final No growth in 5 days. Assessment/ Plan: Nephrology Fatigue and weakness. No CP. No acute events overnight. Vitals, medications, blood work and imaging reviewed in the chart. General: Alert, Oriented x3, Cooperative HEENT: Atraumatic Neck: Supple Respiratory: Diminished Cardiovascular: Regular rate/rhythm Gastrointestinal: Soft and benign, Non-distended Musculoskeletal: No clubbing, No contractures Integumentary: No rashes, No cyanosis Neurological: Normal speech Laboratory Data (last 24 hrs) 11/30/20 21:45: PT 42.0 H, INR 3.61, APTT 46.2 H 11/30/20 21:45: Sodium 146 H, Potassium 4.1, BUN 22 H, Creatinine 4.31 H, Glucose 100 11/30/20 21:45: WBC 13.40 H, Hgb 10.9 L, Hct 35.0 L, Plt Count 252 Imagings Data: EXAM DESCRIPTION: XR Chest, 1 View CLINICAL HISTORY: DYSPNEA TECHNIQUE: Frontal view of the chest. COMPARISON: 04/12/2020 FINDINGS: Lungs: There is complete opacification of the left hemithorax. There is prominent vascularity of the right hilar vessels. Pleural space: No pneumothorax. No pleural effusion. Heart: Stable large cardiac shadow. Mediastinum: No abnormality noted. Bones/joints: No osseous destruction or sclerosis noted. IMPRESSION: There is now opacification of the left hemithorax. If the patient has not undergone left pneumonectomy, large pleural effusion or central obstructing neoplasm should be investigated with IV contrast CT. EXAM DESCRIPTION: CT CHEST WITHOUT CONTRAST CLINICAL HISTORY: Cough COMPARISON: 04/12/2020 TECHNIQUE: Axial CT images of the chest without IV contrast obtained from the thoracic inlet through the diaphragm. Coronal and sagittal reformatted images available. This exam was performed according to our departmental dose- optimization program, which includes automated exposure control, adjustment of the mA and/or kV according to patient size and/or use of iterative reconstruction technique. FINDINGS: Chest: Thyroid: No abnormalities of the visualized thyroid. Great Vessels: Great vessels have normal anatomic configuration. Thoracic Aorta: Atherosclerotic calcification of the thoracic aorta. Pulmonary arteries: Mild enlargement main pulmonary artery can be seen with pulmonary arterial hypertension. Heart: Coronary artery atherosclerosis. No cardiomegaly or significant pericardial effusion. Lymph Nodes: No enlarged mediastinal lymph nodes identified. Esophagus: No abnormalities of the esophagus identified Other: No additional findings. Lungs: Collapse of the left lung. Minimal right basilar dependent atelectasis. Suboptimal evaluation of previously visualized pulmonary nodules in the left lung. Pleura: Large left pleural effusion. No pneumothorax. Trachea/Airways: Senile airway calcifications. There is motion artifact however there appears opacification of the left mainstem bronchus. Bones: Multilevel degenerative spondylosis throughout the thoracic spine with facet arthropathy and degenerative disc height narrowing. Stable compression deformity of the T4 vertebral body. Osteoarthritic change of the shoulders. Upper Abdomen: Limited images of the upper abdomen demonstrate hepatic and splenic granulomas. No definite abnormalities of the adrenal glands or pancreas. No definite abnormalities of the gallbladder. Partial visualization of exophytic peripherally calcified left renal mass with central decreased density. IMPRESSION: 1. Large left pleural effusion with collapse of the left lung. Previously identified left lung nodules are not well evaluated on this study. 2. Possible opacification of the left mainstem bronchus which may be related to secretions or aspirated material. Images airways nodules is also not ex cluded. 3. Coronary artery atherosclerosis. 4. Partial visualization of exophytic peripherally calcified benign-appearing left renal mass with central decreased density. No definite interval change EXAM DESCRIPTION: RAD - Chest Single View - 12/01/2020 1:41 am CLINICAL HISTORY: COUGH Chest pain. COMPARISON: Chest Single View dated 11/30/2020; Chest Single View dated ; Chest Single View dated 07/29/2019; Chest Single View dated 07/16/2019; Thorax Wo Con dated 11/30/2020 FINDINGS: Portable technique limits examination quality. Complete opacification of the left lung is noted with mild mass effect of the cardiomediastinal structures to the right. This appears unchanged since prior study. Cardiac size cannot be adequately assessed. No displaced fractures. IMPRESSION: Complete opacification of left hemothorax. Conclusions/Impression: A/P: Continue the current POC and Medications other than the changes listed. AM Labs PRN. Recommend daily weight. Please see the orders for complete details. ESRD -HD TIW Hypernatremia -HD TIW HTN with CKD/ CHF -Continue Metoprolol Diastolic CHF, chronic -HD TIW with UF -Low sodium diet Moderate malnutrition -Continue Nephrovite -Encourage nutrition with protein supplementation Anemia in CKD -Continue Retacrit PRASANNA/ Secondary HyperPTH -Continue Renvela -Continue Vitamin D3 Left hemothorax complicated by numerous pleural nodules -s/p chest tube -Follow up with surgery Left renal mass likely RCC with metastatic disease Family and the patient decided to proceed with hospice.
== END 2020-12-14 17:20 | disposition hospice, inpatient (51) | DRG 186 ==
LOC: ER 21:11 → ERHOLD 12-01 01:39 → 4TH 12-01 10:50
PROVIDERS: ADMIT Family Medicine; ATTEND Family Medicine
PROC: 5A09457 Assistance with Respiratory Ventilation, 24-96 Consecutive Hours, Continuous Positive Airway Pressure (ICD-10-PCS; 2020-12-01)
PROC: 30233L1 Transfusion of Nonautologous Fresh Plasma into Peripheral Vein, Percutaneous Approach (ICD-10-PCS; 2020-12-01)
PROC: 0W9B30Z Drainage of Left Pleural Cavity with Drainage Device, Percutaneous Approach (ICD-10-PCS; 2020-12-02)
PROC: 5A1D70Z Performance of Urinary Filtration, Intermittent, Less than 6 Hours Per Day (ICD-10-PCS; principal; 2020-12-05)
DX: J94.2 Hemothorax (principal); N18.6 End stage renal disease; J96.00 Acute respiratory failure, unspecified whether with hypoxia or hypercapnia; I13.2 Hypertensive heart and chronic kidney disease with heart failure and with stage 5 chronic kidney disease, or end stage renal disease; E87.0 Hyperosmolality and hypernatremia; I50.32 Chronic diastolic (congestive) heart failure; E44.0 Moderate protein-calorie malnutrition; N25.81 Secondary hyperparathyroidism of renal origin; C64.9 Malignant neoplasm of unspecified kidney, except renal pelvis; L89.152 Pressure ulcer of sacral region, stage 2; L89.312 Pressure ulcer of right buttock, stage 2; N25.0 Renal osteodystrophy; I95.9 Hypotension, unspecified; N28.9 Disorder of kidney and ureter, unspecified; D63.1 Anemia in chronic kidney disease; Z88.5 Allergy status to narcotic agent; Z88.8 Allergy status to other drugs, medicaments and biological substances; Z91.040 Latex allergy status; Z86.718 Personal history of other venous thrombosis and embolism; Z86.711 Personal history of pulmonary embolism; Z85.528 Personal history of other malignant neoplasm of kidney; Z91.048 Other nonmedicinal substance allergy status; Z68.32 Body mass index [BMI] 32.0-32.9, adult; Z99.2 Dependence on renal dialysis; Z79.01 Long term (current) use of anticoagulants; Z79.899 Other long term (current) drug therapy; Z20.822 Contact with and (suspected) exposure to COVID-19
CPT/HCPCS: 0240U; 36415; 36430; 71045; 71250; 71260; 80048; 80053; 82947; 83605; 83735; 83880; 84100; 84145; 84550; 85014; 85018; 85025; 85027; 85610; 85730; 86900; 86901; 86927; 87015; 87040; 87102; 87116; 87205; 87206; 88108; 88305; 90935; 92610; 93005; 93306; 94660; 94760; 96365; 96366; 97110; 97112; 97161; 97530; 99251; 99285; J1170; J1644; J2270; J2310; J2543; J3430; P9017; P9047; P9059; Q5106; Q9967

== ENCOUNTER 2020-12-14 17:35 | Inpatient (IN) | payer OTHER ==
--- OUTSIDE RECORDS SUMMARY | 2020-12-14 17:38 | XMS REPORT | Continuity of Care Document ---
:1935 Author Organization [facility] t Address [address] [place] [address] [address]. [address] [place] [address] Care Team Providers Name Role Phone Kate MORENO Primary Care Physician Doctor Unassigned, Name Attending Clinician Unavailable Andrew GRIGSBY Attending Clinician Unavailable Jeramie MORENO Attending Clinician Ananya MORENO Attending Clinician Karmen León MD Attending Clinician Mark MORENO, B. Attending Clinician Jarrett MORENO Attending Clinician Sae Hernandez MD Attending Clinician Lab, Fam Pob I Attending Clinician Unavailable Sae Hernandez MD Attending Clinician SAE HERNANDEZ Attending [...] Expiration Date Sour ce Number MEDICAREMEDICARE PART [id number] 2002 Thom Mix AND 00:00:00 [facility] [id number] 2001- PresentHOUSHAHAB NHMedicare AETNAAETNA [id number] 2000 Jose USHEALTHCARE 00:00:00 [facility] [id number]/ 08/2000-PresentIndemni ty MEDICAREMEDICARE A [id number] 2002 ROSIBEL Shayla Cates [id number] 2001- 00:00:00 - M edical PresentMedicare Center [facility] [id number] 2019 ROSIBEL Puckett SUPPLEMENT/INDIVIDUAL 00:00:00 - M [facility] [id number] 2019-Present Problems Condition Condition Condition Status Onset Resolution Last Treating Co mments Source Name Details Category Date Date Treatment Clinician Date 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 09-07 Me thodi itis of [...] shoulder shoulder Primary Primary Disease Active 2019-08 [place] osteoarthr osteoarthr 08-29 Me thodi itis of itis of 00:00: st left left 00 shoulder shoulder 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 08-29 Me thodi t of left t of left 00:00: st shoulder shoulder 00 Tremor Tremor Disease Active [place] 09-10 Methodi 00:00: st 00 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 Added automatic ally from request for surgery [id number] Venous Venous Disease Active [place] stasis stasis 04-04 Methodi dermatitis dermatitis 00:00: [...] Morphine Propensi Active Other (See "MAKES ME [place] ty to Comments) 04-29 GOOFY - Method i adverse 00:00: NO PAIN st reaction 00 RELIEF" s to drug Codeine Propensi Active Itching, [facility] ty to Other (See 05-02 [facility] - adverse Comments), 00:00: Medic al reaction Rash 00 Center s Family History Family Member Diagnosis Comments Start Date Stop Date Source Natural father Heart disease [place] [facility] Catholic Natural mother Cancer [facility] thodist Natural [facility] Social History Social Habit Start Date Stop Date Quantity Comments Source Tobacco use and 2020-06-29 2020-06-29 Never used [facility] ethodist exposure 00:00:00 00:00:00 Alcohol intake 2020-06-29 2020-06-29 Current [facility] thodist 00:00:00 00:00:00 non-drinker of alcohol (finding) Sex Ass[birth year] At [birth year] [facility] ethodist 00:00:00 00:00:00 Smoking Status Start Date Stop Date Source Never smoker [place] Methodis t Medications Ordered Filled Start Stop [...] traMADoL 2019-08 No 50mg Take 50 mg [facility] (ULTRAM) 50 2-18 12-18 by mouth. Me [...] 09-10 11-30 tablet by Me thodi hen (Sublette) 00:00: 23:[address] 10-325 mg 00 :00 every 6 per tablet (six) hours as needed for moderate pain for up to 7 days .acute pain, Right leg painful ulcer. 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 Max Daily Amount: 4 tablets magnesium 2019-08 Yes 250mg Take 250 [place] ston 250 mg 1-11 mg by Methodi tablet 09:19: mouth. st 15 calcium 2019-08 2020- No 2001mg [id number] Take 2,001 Garcia acetate -11 11-11 [id number] mg by Meth matt (PHOSLO) 09:05: 00:00 [...] 3 MG tablet 00:00: daily. st 00 Justice-Tenzin 2019-0 Yes 1{tbl} QD Take 1 Hous [...] Luke s - 40 MG 15:13: Medical [address] magnesium 2020-0 Yes 250mg Take [address] 250 mg Tab 9-17 mg by [facility] - tablet 15:13: mouth. Medical [address] [place] [address] traMADoL 2020-0 Yes 50mg Take 50 mg [...] tablet metoprolol 2020-0 Yes 1{tbl} 1 tablet. [place] tartrate 8 Methodi (LOPRESSOR) 00:00: st 100 mg 00 tablet antiox.mv 2020-0 Yes 1{capsu QD Take 1 [place] ston no.10/omeg3 7-08 le} capsule by Ne thodi s/lut/michel 09:50: mouth st (I-CAPS 13 daily. ORAL) cyanocobala 2020-0 Yes 2000ug QD Take 2,000 Garcia min 7-08 mcg by Methodi (VITAMIN 09:50: mouth st B-12) 1000 13 daily. MCG tablet diclofenac 2020-0 Yes 4g [id number] Apply 4 g Garcia (VOLTAREN) 7-08 [id number] topically Methodi 1 % gel 09:50: 3D [...] 2020-0 Yes 1{spray Q.5D 1 spray by [place] propionate 7-08 } Each Nare Meth matt [...] chewable tablet folic 2020-0 Yes Take by [place] acid/vit B 08 mouth. Methodi complex and 09:50: st C 12 (JUSTICE-TENZIN ORAL) cholecalcif 2020-0 Yes Take by Sol[place]ad alvarado [place], 02-23 mouth. Methodi vitamin D3, 09:50: st (VITAMIN D3 12 ORAL) traMADoL 2020-0 2020- No acute pain 50mg Q6H Take 1 [place] (ULTRAM) 50 02-23 07-18 tablet (50 M ethodi mg tablet 00:00: 23:59 mg total) st 00 :00 by mouth every 6 (six) hours as needed for moderate pain for up to 10 days .acute pain. vit B comp 2019-2020- No 1{tbl} Take [address] no.3-folic- 3-25 03-25 tablet by Denise Kate-biotin 00:00: 23:59 mouth. Medica l (JUSTICE-TENZIN 00 :00 Center RX) 1-60-300 mg-mg-mcg Tab temazepam 2020-[address] (RESTORIL) 3-20 [facility] - 15 mg 00:00: Medical capsule 00 Center warfarin 2020-0 Yes 6mg QD Take 1 [place] (COUMADIN) 1-14 tablet (6 Meth matt 6 MG tablet 00:00: mg total) s t 00 by mouth daily. loratadine 2018- Yes DAILY [place] (CLARITIN) 2-20 Methodi 10 mg 00:00: st tablet 00 atorvastati 2018-08 Yes 40mg Take [address] [facility] (LIPITOR) 2-03 by mouth. [place] es - 40 MG 00:00: Medical tablet 00 [place] warfarin 2018-08 Yes 4mg Take [address] (COUMADIN, 1-27 by mouth [facility] - JANTOVEN) 4 00:00: every Medic al MG tablet 00 [facility] 2018-08 Yes 5mg Take [address] (COUMADIN, 0-25 by mouth [facility] - J[facility]OVEN) 6 00:00: every Medic al MG tablet 00 other day Mika varma Eusebia acetaminoph Yes 650mg Take [address] en 8-19 mg by [facility] - (TYLENOL) 00:00: mouth. Medica l 325 MG 00 [place] tablet allopurinoL Yes 100mg Take [address] (ZYLOPRIM) 8-19 mg by [facility] - 100 MG 00:00: mouth. Medical tablet 00 [place] docusate Yes 100mg Take [address] sodium 8-19 mg by [facility] - (COLACE) 00:00: mouth. Medical 100 MG 00 [place] capsule lidocaine Yes 1{patch Place [address] (LIDOCARE) 8-19 } patch onto Zahida es - 4 % patch 00:00: the skin. Med ical 00 [place] docusate Yes 100mg Take 100 [place] [...] oximetry Systolic blood 2020-05-05 14:50:00 159 mm[Hg] [facility] Diastolic blood 2020-05-05 14:50:00 76 mm[Hg] [facility] Heart rate 2020-05-05 14:50:00 79 /min [facility] Respiratory rate 2020-05-05 14:50:00 18 /min [facility] Oxygen saturation in 2020-05-05 14:50:00 97 /min [facility] - Arterial blood by Medical Ce nter Pulse oximetry Body temperature 2020-05-05 14:00:00 36.61 Katerin [facility] Procedures Procedure Date / Time Performing Clinician Source Performed [place] ARTHROCENTESIS 2020-09-07 10:50:00 Héctor Flores Me thodist ASPIR&/INJ MAJOR JT/BURSA W/O US MO ARTHROCENTESIS 2020-06-29 08:40:00 Héctor Flores Me [facility]odist ASPIR&/INJ MAJOR JT/BURSA W/O US XR CHEST PA OR AP 1 VIEW 2020-05-05 13:49:[address] XR CHEST PA OR AP 1 VIEW 2020-05-05 11:52:[address] [facility] 2020-05-05 11:29:00 Thaddeus Hernandez [facility] CT NEEDLE BIOPSY LUNG 2020-05-05 11:27:00 Thaddeus Hernandez [facility] CBC W/PLT COUNT & AUTO 2020-05-05 08:27:00 Roslyn Nickerson [facility] PROTHROMBIN TIME/INR 2020-05-05 08:27:00 Roslyn Nickerson [facility] APTT 2020-05-05 08:27:00 Vesta Nickersonica Jeffrey [facility] XR SHOULDERS BILATERAL 2020-02-24 09:53:58 Héctor Flores on [facility] [place] ARTHROCENTESIS 2020-02-24 09:30:00 Héctor Flores Me thodist ASPIR&/INJ MAJOR JT/BURSA W/O US Plan of Care Planned Activity Planned Date Details Comments Source Future Scheduled 2021-04-[address] [facility] - Test 00:00:00 (Season Ended) [code = Medic al Center INFLUENZA VACCINE (Season Ended)] Future Scheduled 2021-03-19 INFLUENZA VACCINE [place] [facility] Test 00:00:00 [code = INFLUENZA VACCINE] Future Scheduled 2020-08-[address] [facility] - Test 00:00:00 (12+) [code = Medical Center DEPRESSION SCREENING (12+)] Future Scheduled 2003-01-[address] [facility] - Test 00:00:00 WELLNESS (YEAR 2 or Medical Center FIRST YEAR if no IPPE) [code = MEDICARE ANNUAL WELLNESS (YEAR 2 or FIRST YEAR if no IPPE)] Future Scheduled 2002 PNEUMOCOCCAL 65+ YRS [facility] - Test 00:00:00 (1 of 1 - Medical Center [id number] PCV13) [code = PNEUMOCOCCAL 65+ YRS (1 of 1 - [id number] PCV13)] Future Scheduled 1987 SHINGLES VACCINES ([address] [facility] - Test 00:00:00 of 2) [code = SHINGLES Medic al Center VACCINES (1 of 2)] Future Scheduled 1987 SHINGLES VACCINES (#1) H [place] [facility] Test 00:00:00 [code = SHINGLES VACCINES (#1)] Future Scheduled 1956-01-25 DTAP/TDAP/TD VACCINES [facility] Test 00:00:00 (1 - Tdap) [code = Medical C enter DTAP/TDAP/TD VACCINES (1 - Tdap)] Future Scheduled 1953 COVID-19 VACCINE (1) Soledad alvarado [facility] Test 00:00:00 [code = COVID-19 VACCINE (1)] Future Scheduled 1947 DIABETES: RETINAL EYE Ho christopher [facility] Test 00:00:00 EXAM [code = DIABETES: RETINAL EYE EXAM] Future Scheduled 1947 DIABETIC FOOT EXAM [place] [facility] Test 00:00:00 [code = DIABETIC FOOT EXAM] Future Scheduled 1943 65+ PNEUMOCOCCAL Garcia [facility] Test 00:00:00 VACCINE (1 of 4 - PCV13) [code = 65+ PNEUMOCOCCAL VACCINE (1 of 4 - PCV13)] Encounters Start End Encounter Admission Attending Care Care Encounter Source Date/Time Date/Time Type Type Clinicians Facility Department ID 2020-10-24 2020-10-24 Orders Doctor FANTASMA [id number] 00:00:00 00:00:00 Only Unassigned, LEODAN [id number] [place] [facility] [id number] [id number] 2020-10-11 2020-10-11 Transition Shereen Morales [id number] 00:00:00 00:00:00 of Care Berta Castellanos [id number] [place] [id number] [id number] 2020-10-04 2020-10-09 Emergency Jeramie John [facility] 1.2.840. 114 [id number] 09:26:00 08:47[facility] [id number] Tracey León 4.2.7.2.686 HareSridhar cronin [place] [phone] [place] [id number] ([facility]) 2020-09-07 2020-09-07 Outpatient HÉCTOR FLORES [facility] [id number] [place] 00:00:00 00:00:[address] 2020-07-11 2020-07-11 Outpatient JARRETT [facility] [id number] [place] 00:00:00 00:00:00 AMY [address] 2020-07-07 2020-07-07 [facility] [id number] [place] 00:00:00 00:00:00 AMY [address] 2020-07-05 2020-07-05 Office Meagan Hernandez [facility] [id number] 11:30:34 14:14:33 Visit Eddarlin Delane[place] [id number] 0.2.7.2.686 [id number] 2020-06-29 2020-06-29 Outpatient HÉCTOR FLORES [facility] [id number] [place] 00:00:00 00:00:[address] 2020-06-15 2020-06-15 Outpatient JARRETT [facility] [id number] [place] 00:00:00 00:00:00 AMY 790 Method i 2020-06-14 2020-06-14 Laboratory Lab, [facility] 1.2.840.114 [id number] 10:22:08 10:42:08 Only Fam Po I Health [id number] [place] 4.2.7.2.686 Professio [phone] nal 044 Office Building One 2020-06-07 2020-06-07 Office Meagan Hernandez [facility] 1.2.840.114 [id number] 13:07:47 15:00:57 Visit Eddarlin GuzmanNair [id number] 0.2.7.2.686 [id number] 2020-04-01 2020-04-01 Office Meagan Hernandez [facility] 1.2.840.114 [id number] 12:57:56 14:08:33 Visit Eddarlin Alejandro [id number] [id number] 2020-03-11 2020-03-11 Letter Kristen, [facility] 1.2.840.114 [id number] 00:00:00 00:00:00 (Out) [facility] [id number] [place] [id number] Professio [phone] nal 044 Office Building One 2020-03-08 2020-03-08 Telephone Pob1, [place] 1.2.840.114 [id number] 00:00:00 00:00:00 [facility] [id number] [place] [id number] Professio [phone] nal 044 Office Building One 2020-02-29 2020-02-29 Safia Peterson, [facility] 1.2.840.114 [id number] 00:00:00 00:00:00 (Out) [facility] [id number] [place] [id number] Professio [phone] nal 044 Office Building One 2020-02-25 2020-02-25 Laboratory Lab, [facility] 1.2.840.114 [id number] 10:58:24 11:18:24 Only Fam Pob I Health [id number] [place] 4.2.7.2.686 Professio [phone] nal 044 Office Building One 2020-02-24 2020-02-24 Outpatient HÉCTOR FLORES [facility] [id number] [place] 00:00:00 00:00:[address] 2020-02-24 2020-02-24 Outpatient HÉCTOR FLORES [facility] [id number] [place] 00:00:00 00:00:[address] 2020-02-08 2020-02-08 Office Link, [facility] 1.2.840.114 [id number] 12:40:48 16:00:35 Visit Johan Nevarez AMBULATOR [id number] Y 0.2.7.2.686 [id number] 2019-09-09 2019-09-12 Inpatient ALEA, [facility] [id number] [place] 00:00:00 00:00:00 WILI [address] 2019-08-23 2019-09-01 Inpatient MARSH, [facility] [id number] [place] 00:00:00 00:00:00 TIFFANY [address] Results Test Description Test Test Results Result Source Time Comments Comments Large Joint 2020-08- Héctor Flores MD [place] Arthrocentesis: 09/07/2020 12:36 PMLarge [facility] shoulder, 10:50:00 Joint Arthrocentesis: Bilateral shoulder, Bilateral subacromial subacromial bursa bursaPerformed by: Flores, Héctor B., MDAuthorized by: Héctor Flores MD Consent given by: PatientSite marked: [...] well with no immediate complications Right shoulder Héctor Flores MD [place] cortisone 06/29/2020 9:43 AMRight [facility] injection 08:40:00 shoulder cortisone injectionConsent given by: patientSite marked: site markedTimeout: Immediately prior to procedure a time out was called to verify the correct patient, procedure, equipment, child support specialist and site/side marked as required Supporting DocumentationIndications [...] well with no immediate complications Shoulder left Héctor Flores MD [place] cortisone 06/29/2020 9:43 Methodis t injection 08:40:00 [facility] left cortisone injectionConsent given by: patientSite marked: site markedTimeout: Immediately prior to procedure a time out was called to verify the correct patient, procedure, equipment, child support specialist and site/side marked as required Supporting DocumentationIndications [...] code = 104) Surgical Pathology Report Case: [id number] Authorizing Provider: Thaddeus Hernandez MD Collected: 05/05/2020 11:29 AM Ordering Location: [facility] Radiology Main Received: 05/05/2020 01:11 PM Pathologist: Melchor Martinez MD Specimen: Lung, Left DIAGNOSIS (test code = 3220) b3tyhFUeZEEmh3ahOZTmlBMvGyHrJeVeXvAiRu p naLZzLHwcplKyXWutg5QdD4StDdAfTMjlgqJvZC WaKmwpeggkKIYlQYJ7ypVaDZChOWnbOGFnQHszZ j0veGAioSdcFyZqBEQlz4ntbiCFbaqplLg0a5pr RHEpSfV8yWAcHSmhL0ubwtUuxBGfZKHcBHd7rE0 8HDEupB9zgZDxXUnzspInIlU3LZzwHOUlOgU6EO DnwEDtACNfX8gyKDFvUIadCBJfVHquyIMkBMF5a Hmyj0X7xSGaeECvvGvcUbCvMbFmXXTFq5ZgERk5 nIdmC1OrRQZrNbM5eXLiXTWdMYalNSOwCGFsmiL 3rE35DIvrjoA4yXRss4Fhj26zd277gU1bmLPmFU M6JXXdOQHsiEMoBZOnZJC2QUSosKQeC4p5QjIgn OPaU8W4JzBcuVPsJ0Q0BmMmhJJwN7N5BbCcdTOz FTFwxOGcAj1kfSRjzYEckt1fcg61OCO7o7LdpWw sYMM8NCX9LnPbUb5bxDVvWMMsFH2xDiYhxONuFD Maar01jZviATojsxGkeT8sHvByELAacGJpNVXrA I7yuUBwNGNbbZ8sykdvECVoBbOernbqMMNelSnr wtLqWu9nvYcdYAJ6RGonD0fxzR8kSyY0BJubA3h ntT8uXYm2JIxuzME1OAZweJ4uJH7ohsngl1vuYb LnSM8hdylsd7swZxKnUN8sbfi1q8dpBvDfLO4wv xzcb1jkNgAuJPyoHKCobndwJYKgn5SesoibOZLg h9PvP9EzjDwyH46rjXgrA33kHFZwkUnnnJ7axSo nxZ1aDxZmKmDrSAiykFurfHVypuqhAVfupgLdAD lmsoxcVTJeJXazK7jnHfAqMNGltRpyZDfmf2BwL RWwBYBwHdQlXWYHSryaMKHCAWpcNisQCFEFVN3J FJ2UPELXIbpmDGXbDUBrF65DH0rFJFYEFWHRJSP DNP7UONNOOGJHTOSaBuOAFCqaB6IWK6ePA25XKZ Nxyr16IGA8QeGvk1N7ZWG7BCVcRKPly7blXPXsv DOeVtNlJlAsFeByEvdhcDSkWQFsAtCvk9dnt221 cCIjq8pbOALeBjR5eTQdQJBlmMKvW495ORImUOz ik9soj6UvHCOmfJFqc7R2CQWNeeputGl4jEtuJ1 3xm9R6YtwrI6upTUNoCGBiB1ZbHM8bNHSbUoc3U VZ0ACY6UJVeBCQhK6VvMD8pCOSibKYySZo6v1hb cLmuTZTsVEU1f3dlTHnjkpDkQJ8qhx4esTt5y6j oecXiEQKyJNZwcVAUCTEjF9HkdXguDi8zjUx8lV wpUijrFYG7Btf5WT6xnq78afn0zYqnGKNhxyodH jD0WPenFICzbpsnDBf5YQkiYQJvlBK0QFRjyXQi F4WnZXTsJC8mvqz9WKE0AKbvURVtEcL2RCKgyVQ bWZQivDyePDylf598EOZ6PqNuHZ8lW3Zvp7I7hM 3stOTyNBZpmNPrJlEdFFDonf8meJDvYUubb1YmN XB9irF5rYRimPUlSDCkZcP0OUmuOI3hct38TYKk KIW9ug7psMIuzLodxrHbbVOcVMsyX0GkLZNpp64 0QGZfT7AaHPYev7P7zyXrOtDiZWHnzTA8gsD0VC MhYO3jxkgiv8cdPCzmWRhcHYBwunP3mgD1CLGrv OGqA9LbyH0jNRApBX5gdovja9tvGWJ1DIsuVTVo JQH3XoFnLZTvp0Ahiqn1EuGyb0KmyXXrNXgjC66 dg756MLXgleHkD0drvRWsmclvtNDecjkuASfgda P9SRHbVTxaociwEGSrTQknW6qxRyCfJVMhwDwuC Gxqc7NcHXZoMGQoFsBrsLSaSHBfXoh8HPVhaXIa CJRlExJeE5btnqmxOwGYERNdw4saU0dcfCLUfMS vN7VcOQathkBxEKsaVFvoILTbVYP6WF69EEcdTW Bhcn19 CPT Code(s) (test code = 3357) h2alfASvBFWqmNJqWtXjGFZtQCJkd9qyPZDh bGF vAwVzYsStDsYnClcylRKaTPQuHoWjl4lww348sN Nwv2dpPGGvUlU8cDFtRGYynMMtK581IGHqDVeaz 5sky4ShJODhtYTes6K7UNDYeoczlZb4vFzpE56f i7D6IktpP3dxFKQdQMLzR2AwQY5aRKOvKcd2ULU 6EQC3JZAiVGEdT0DhIW1wXQZbjUNrDBz1h9rvnE zsJIWvJUU5u4dhRHqygqWrFP6lbk5htGz6c8bku uMeMTHuZEEdkMEEQIOkM5WmzSnmXc6xoJt1mOgo MpjiSMU4Clj5KO0ige83ozi3aHjrPTBvdeyqZyH 4WGnaRRRkjosgWCx5APamCLXhkMqgFBmaBTAdny uiTFhzRTJdiXsbHYqxBSUkSxrsUJjrGIXwTAR9R Eikj410BFU3PMslt9mvz1xaaDPtPfv2NNSfXmIm JeljCUzyz7Emg2jhVVJooz8gRFK3oPZsnXflm5U 2hPOnCCDkwTBneqClCDMaQzO2SHovQS5hmf89HP RdMCV7lk0tsHZvbLfobiYyqOIkFTyvW2TcNYSoo 056EBNyP5CyUULrn8F0amAvCxBgGQDrpJW3atF5 FJQgEDw8cUZmcnV3bdLzzUMlC2qggX92MtDxrLK lM8TniI70IeMyhPCwJ9EwwW36QnTaxGIqW8DhhC 70JsGojEZsEJLvdZNjQl7gmTGenIBas9RpsGHrH JsqA07mn292YKBlcvDcJ7kuhWTqnndhsUNfumxk BJnmqdR8UBNdFMFwEBffVGIxAVQaZtIrgEJaZlT mJjDbqEmbgEcsQIyrInPdUNAaFAhcM2voTjCjVa ViBRZ0BWQiVMyeTOsfOBLoJKk8VqKsSVpjZAbnS XJ9 CLINICAL HISTORY (test code = 3356) v2wmbSPdKVKxcMYkLeJhSYXcZPOik1o cZGVmbGF dMyFvJvUzHoGgKcznhOMkCAGpEjPli5hxz204wX Tpe8sdXKEmJvB8zNEpNHBbuCPmK633t2wdm2jjf tStvHT9UWCwOUT3NUmhywLgrgJ3SFnhbKHjNuX3 DRwoipKhXNnkwrJqghJrPov5UFUlV683WMP1iLo hv6deNKY5RQEyEYXgFxQvZx9euDPjQ618VGCvJB YNQAPitUc9FTHyqqYysmLdrADHx738B173t9gkS DKxhaIqyIoBnqvwb7wdU591RMRkqEZaxjNmLqDa HCCpcJCzlDX7ZZIzGW0fxooiJmKwCV1yeoktUjG iFJ8kpei5McAcXE7mfpjiHoVfPUxqTBElqsreTG Rue0SsgzpyLM3jW7Ulw6C3mS1blWMaIDLkgRVfU sRfMJAwzc0brCMrMLgxm9FdXDA6ytW7jUSkiILi FPBgRW02Ahyzx5LvYbsmFPP1SAIxtkEgf9Tjp1m lOiGieyTfO9erG6KsTDLmQBLbLRFpDjDpbeXlf9 Zfh8PocUQmfPz3s7wdIOIpWEYsbVnol2rdNGF6V VZgO8U6aCIqc7wyVKmsLRHkyRK7lzqoQGkhSYLn pkM3wkbyYZeeCRKsaNG6itjcRShzFSUqNzA7cci wJOvoVYYwJIW1REqvf983GLR1DFcgIbruNIibKY BnbmNvbnRccGduZGVjXHBsYWluXHBsYWluXGYwX TRkSsHtnSmihUhgrQ0hIqEdLrPiNZimGA6zZLDn O1kqtSDmYEWjBQBuG4cjQyPmlE3ffGhrRYysqnS jIOCaamQzAHQzwShdT0GvG1gdp56wCDOfh2OdZ1 vjlXOqCVpjoGClBEtioPcwkNLaRJc3knluph5dq AurHEZiWR9zy42feK4sD9xkPiMxxEPnsNDfkKNr fQ== SPECIMEN SOURCE (test code = 3377) l4wrsRVkHTOegBPlDbPyGCGyAYTsw6hw ZGVmbGF eRrItXmGuXqMxLotleXZgUZWyDwUbc0mdp257fJ Fda7waFVAwZyU4uUAkXCUjpDAaZ443e3mye1hut jEblHF1JKNrAWO0RRlrgjRllnR6JFkpwMCvTaJ7 HRhsutKmQXpoutNxtrHeLnw4JFJdW781GZW8lZl zd7rwKRT3TIDyZAXbQzInNg6idKQxX294BAWzNY DBHNMriId9SHDyyoHnmcAyzOMTz508S293l1fwG WWemtZnxYoZnyqny9deM071FHDhwOKprbKgThQm QRKkzKBvsHK2IEMbKA2olnroAaEhZX1relydNjP eCE8yxwb1KeIzDI8qbvfdQzDmDJuaRVXabeoxGA Aes8ExbsztXG2bX1Hlq1A3sE0yyHNoFEHnqSFiJ uJvFDVion2vvBMjZOpyo9NzLZN6rkZ3cYLxdYPg USPvCO86Uesmx0SfEkilQRW1UVCxljImq7Ruc5s oQqRzxfQaZ2xqV6KyVNWvWUAtZFBiWqDaoxQfj4 Yee6OxqFCuuXb0i9ckURIcHZRsjYhzw8hsWCW7Y ZUmF6H0kJUqz0geHKazHRUkpZL8jffhXTznQWOm kuG9tlmoKTtmVNZyzLO8gpkjDFlvFWHiIkP6vii zYTvaYGJjBOP1PCzyr382BMH8OIqeGbucHEthSR BnbmNvbnRccGduZGVjXHBsYWluXHBsYWluXGYwX ITxJwBitNtyzKhkpS2eZfAePdGmMRiaCW2sVJWy M8wxfTEdMAAuZHGuU2svJdOdnJ8dsAphNRqnmaC rEFq1oswyPCleAeKkvBDhrP== GROSS DESCRIPTION (test code = 3366) k7ufmJJrDPNbpXMwIjZxFFKhWLVwb2 lcZGVmbGF gYpAqPzQvXrGsRqgpyZUxVCKnVyQoq3ith130wU Idp5diUCStDuP2nUStENLvoXWoH195r9ulj9fif lNnpNI5JOJcZLT1EKfhkrXfypO0MWltsLUwKvK7 TTjeihCuOEvuihGkdiLkMux9WIThR197UMN1nDu ji3ehAQV5TPRgENIcHcCjFh9zuIZeP620FXVjCC TMYYKbyHe6KUPlbhUiyySpcVUKx412G891d7tuO PDaepXatJfUimdnz9dyW078EFWxzCElzlUuYhSt CNRqwWVtvCA7DAMzDO5ilwveZdPnRD4vgvbrGqW wWD1atjg3OzXfRL2zdyimEcEeUNvxXDUxpafcUO Mzw2KuhsusAV4eJ5Mfr5L8zD0eeCSiKKYkpPAcH bTcSDCrgh3uiHGlEYbwp0WmUNW6sqR2nQCdrYTc QFNhIU01Ymjbz1KrOjouVNG9UTOfryYvu4Dzi4l iSvKbgiLbQ6brY7KmOQNqMXTzVESqCqKdqxVoa4 Avl2TozDRdxMb7o6vkLCDiMGZhjSweb5mvHFL3U PUpS1W6iNMvu8uiTUgpZGPmlFV9xmtbOKnlOWEp sgH9eeedBXxjNUFwgIB3vtawUVpcPAIuScZ2fhj dBGorDCTrCVF5PMocq894ZWW6JMkwJsgvZTdwEY BnbmNvbnRccGduZGVjXHBsYWluXHBsYWluXGYwX POnOeIgsEmtxXoavG5uHhNdAkPkUOivMO6sNASw W8fhmXSmWVQbADEzU7gqSkKoyS4srGvtNLjueuN iMCBqmrVqSUZjDSJsyVMoJSBiutCfb4HbWDwhwd BsYWJlbGVkIHdpdGggdGhlIHBhdGllbnQncyBuY C8kSXCtRWUjC5ErIHQbD09kSKXvyC0dDUTuYH6m HLGwhV7qIBAaLIK5RbBxhkAxySggWAQqvj69nBf 7FQFzp5DcjeKfTsSny2N8IQOio2Z1SLOpWSCupC YzhzvqRL61MRtsOJ7hFUyqXJ4bCVOfLHUkWBYzN tKzjSUjVxPpsGMlFyNdY82qOBNnHJAizXWcqN4r qoEdhtQouSAaqTV9LOJpfG0ycE46gaZimfPRFD8 gQUEvZXdccGFyfQ== MICROSCOPIC DESCRIPTION (test code = e7olnTWdXLVabYRmQgVlCPVeELLof8 lcZ[place] [phone]) wQuNcGeNnKgPfLlrcuHSeKRAdStKkk6srw980jU Mhb9ktKZTlOeB5eYZlHFPqaQFzZ180a3deh5nvl iBgyOX1NTEeVOC0UEljcnQblbO9WCqtxBNdGtZ3 DTypweTiFDvltvOholBoObn5URPpO126VVE0uFr cb0hoHQK4IGIePIFeKtAfSm7qpGNaF173CXFpCD CAFZYfiUj8MYKgyzHrhnVpkIWPt793M202q5hbJ WWtdbLtoJvGurhmv4hqW007RECpgFKknsFbMfAg TSFmsKJrhTP2UEOnSQ4iqgyhQsRzVJ1ncyghDkO kOV3qcso9NjOdEF2hthhaRkKwQDzsNVHeurkkRU Lii8ObnefvUF0eQ5Zpg6K5gK9feYDdKENhiESnS uWbBMYvik4ysLSmVPilq4KmAWI3kkL7aBBglYGi ZNErAH07Lyurj5CrZbvwZNP6HMYxgiXyc3Jfb0n oWkBngqThJ9cuI9EgXICyFTPcMEQpQxLrsqLaj1 Mew9TxsWQxrHx3r9puGSWiBEFvuJtjq6yqSMU2O GCzZ1E8eXAwk0liSSlyGQMxrUA4vytgGXxbUOXx goQ7xmdzJJbgNINwdAG2chjfWYrrYFAaKaD0meh rANowVJZyCUI1WEmhz528GTN5PKtcSspcJRrpFA BnbmNvbnRccGduZGVjXHBsYWluXHBsYWluXGYwX SEqAfKtsKlwtUxdoM0fIoQqZmXoTVnfHU5kBRDy U3khqMBoGPSnTFYwI2agSsVfeT0pkZzgCKprotH iIKUushBotj4cEP2erZPakD== SPECIAL STUDIES (test code = 3376) s7evuNQqKKCebGCvHmIeLECzMEGdx0co ZGVmbGF rZaBuPiEoHrYoEgwhhUMtFVErJbRjr2sqo029zZ Mwu4nfBCShHgL5fIYnKBWbcXNaQ720NHUgOPszh 8sic2XjRIKvwUUlp9B0ASULEFdcJaSnF648UXKn VYdej8zms7UwXLEwrVJlu5M3JVIPhuwfrRg3yWn fG77qy3Q4CkyvR2hfBSKpYJPjN6ArXZ0vGHGpXd t3TKO8URM4AMYpOVRpH4VjLV1sEKMhvLFpEBq6o 3gqkMcvFWEzFUJ1g1orQMvolzU1XT0tcn9zpTc3 o3isvaVsMZEcSNJdjUFTRVGwV3IvhMykZh6ijUb 0f8hwVimoviZ1yLElPvMaJsVpUOiubBSmxtbbEQ CrKHE2tGRAPSx8X428w0nsJYIjmqWhoFvTenujq 9aeF171OKVrzUEckkZcMyBvGAXsoBWwkFU4WNWo EM6piybcYhHrPB8nllpxAgOhHU2tafe6IlMyUV2 gwinhXnDiXHzcELKahhtbFHIca5AfwzzpXO3wQ2 Zmw2V9uR1noFYdFTKqxYIlMtRtDPFpbz3qnJXnK DvfKBF6HBCnhwHhz9Uig1miCiQizfGfA0psY7Ic QIVmXUSsUXDnJeMulhPmm5Bhh9OqcGFlrAa9l9j nBDHlXUByeInvd0kiKZZ8AUKuT7P0aXOwi1qcBU weTKDzxTS5vnazFFjdEIAhccY1yeoeJMnlFJInf NX8jwudASxbSMLqIjZ6tgjzDFvwFURdEWA1AGfs c952BFT7CYeiHjjlMAtrAWDpndZaouHugEngIRO jXHBsYWluXHBsYWluXGYwXGZzMjRccWxccGxhaW 4jZyXdMuLzFrbaBA4gFOWmO0freYCnJGYoHMPaN 5zeDeXcxD9afTzeQMejTjQbSrZrHhGWpMUzhJ77 BFVumoG1WMJva11en3VvcYnaeaUrRZCyOBwjF1o 1EOYiISAdITB4w8Bhd7EknP3uwZ6wvVsmdO0ucH HlnMV8rxrpd3Ggq9LjM3iikYYqxWYqyuYyIASkK WluXGYxXGZzMjJcbGFuZzEwMzNcaGljaFxmMVxk LxWqXVDrTJuvU1tnOeNzF4NeGTTuNfCnmFKrE8r ccGFyXHBsYWluXGYxXGZzMjJcbGFuZzEwMzNcaG hjkEtoOQjuZwRdNKUxYJcrO5taEkRwT2VjCMVgW gSyA5l7TQ7jI3N5vZYaSKEqyfHBXKAzPR6wZ3T2 aXZlXHBhciBQNDAtbmVnYXRpdmVccGFyIFJDQy1 eWMAcwKcheAXvKXSOAVefuN1dvCEuovQflMTrFZ SdxqKoh8tyQ5rlVQCbBYO1ZW8ckwAoBwRaZV8am T34d2Ool97cn53ffQ6oqAHxcyKsJ79agFQtzJOp z6AgLYEzltGerHR6FUXtYLlxiveyp5p7uBU1lTO fqIWtjZE4eJWcjYRsALTWdPTpJPVjd502vq2fKM KcaBYxgyUfgK7sFJnblimjrHWxIB9dYJFvJOMrL IOkEI77nlWfQM9pcFOub7rbuaAgcMPwd2BgsVN8 BMMunMFvoxpdZj5bBW61OWAxEEedxW1ygCWvicY wWK0jDV8yK8D9mOHxHGHjmePlk4quVKyiXW5qTM BqnQkxYeumCZHxBAEntzKbxHS7BUUzpDhebM6nU bXjCyTyCuthFK7qKCBzM7csxWDxJBJfKBYhH0xq NvLznN7ukLqoGIoqMxEyMaUrXbqdeQCfnHwiUCK syQxzbT2jVuIoVlJtWqoeKG2gWVClI5lcqJPwZT SfLYUmQ1cwKbRndQ8caRtzYKsuLrQwMuUxOxQpW HBsYWluXGYxXGZzMjJcbGFuZzEwMzNcaGljaFxm ZKkeEwPaFNAbEJkqM3roXrHgP1OhCXKuFnCqzBQ mB5vnyOZbYEIiCHkkSUOfZCZpLuWxmIMdAgNnIc JpfRlqtNojCUnyWlQnEXShGOybI7dkBaHpH4BcG LBaJjAqUL9epB7maElbdF8kpARzoLP6jpxcvJWa yV7lL8TeVGXqb6Zauyxzl4YtSVLjqoAeob0zLDN irNXTYRjfy7ThM0NkENf2h1FoxHnlyA3sEhAzUa LdGlrpTQ3mTMYsO7acvBYmKJZaNFOaT3scWpYyo O0gmVpoVPrbLzYyDjDqKyo7CKIjTqSuBvxnWQGj YWluXGYxXGZzMjJcbGFuZzEwMzNcaGljaFxmMVx bQqHnQNZaTUzmJ7eiJpReT3ZuQBJxYhLnghGSNN AmQ1UtVHPnqwOlfgdhCUA0yV7gc3v1DOpzCw5rQ TZwgcugd6vcemDjmNZoq7HfLFNphwAyg8IiIMUu adUoyZGpVCRugfDqkj2rhlItCVDqNXEiR7Mgmlo ycIrkwvV8LVKyAAWrzEZwpOznSLQsUCy5ZMfxuq Jwu7MbPaCcohVmcQApvnEeWR0vMJIvgYSrkzPtH EC3APGhJAZGAjEfWNIsc8LmBE8lXNUlqDpbRBWb pS0vm4NqZWPke63jFLZnIDDBMLDheVSqKNCksYI dlNmgNMZcbQgupLBguEZsBNFiMAGnEB7ePLGqtm VasQYqv1LymFTpvmHft7FtrpIqFBIcBJJ8LvAMf UMtqHWflWKgpeA5g9ZnYUSapmWdnGmxjUPvzEAt jIRlf7Ohir2yINRav8imqZcpNI1fgNAlLGHcKXg qcqIrYVCdtiKyrlMdx3MtG3D7pY1qUMxnf0VcOo 9dONGyv6JhzdTyKcAUiVgqPCtmDa6cTPTwkgpxl WZxL1PugZuhgVCdBMUxVIGoURIbNFMGaVnyoOAh zZZBQJLbkhX3u4J8AQggyEAqzbHxSN57KXDpIH8 zdAWoiDSwe6HiPFk9CHYgG5wXKI50RWvwLUAfiC HioIacqNTtRDPyAWUaewUmvi0wnGlplFBla55zy PF6cCW5KXKmqW0cP0YnZMyzXe7rAADisuyiyKKy cGqyKr2ikIwnaR1pJwSxCbCpNxuyZY3jMFCyS8d glWMvNISkLBBiS3osZyFckX3nnSgpTfownnVoAP UglcuzSEUlFJKlXPpcBBAuHNGrTmAcxFrsoX3gA jJcZnMyNFxwYXJ9 Gross assessment was performed at (test [facility] enter, code = 2777) Department of Pathology, [address] [place] [address], Technical component was performed at [facility] er, (test code = 2778) Department of Pathology, [address] [place] [address], Professional component was performed at [facility] enter, (test code = 2779) Department of Pathology, [address] [place] [address], [facility] [id number] 14:34:00Surgical Pathology Report Case: [id number] Authorizing Provider: Thaddeus Hernandez MD Collected: 05/05/2020 11:29 AM Ordering Location: [facility] Radiology Main Received: 05/05/2020 01:11 PM Pathologist: Melchor Martinez MD Specimen: Lung, Left LUNG, LEFT, BIOPSY OF MSASS:- CONSISTENT WITH METASTATIC RENAL CARCINOMA Signing Pathologist Direct Phone Line: [phone] signed by Melchor Martinez MD on 05/09/2020 at 2:34 [id number], [id number], [id number] X 4Renal cell carcinoma,unspecified lateralityLung nodule seen [...] the use of immunohistoch emistry or special stains.XE2-[id number]-[id number]-[id number]-[id number]-[id number] SlidesExamined: In-house known positive controls were evaluated along with the test tissue. These control slides run alongside of the patients sample show appropriate staining. Internal positive and negative controls when available are evaluated Immunohistochemistry technical testing was performed at [facility], Pathology Laboratory where it was developed and [...] qualified to perform high complexity clinical laboratory testing.[facility], Department of Pathology,[address] [place], [place] [id number], [facility], Department[facility]ology, [address] [place] [address], [facility], Department of [facility], [address] [place] [address], TYI, CHEST, PA OR AP, 1 [id number] 15:11:00Reason for exam:- >Post Lung BiopsyShould this be performed at the bedside?->NoFINAL REPORT CLINICAL HISTORY: Post Lung Biopsy TECHNIQUE: 1 view of the chest. COMPARISON: 05/05/2020 IMPRESSION: There is no pneumothorax status post biopsy of the lingular lung mass. The lung dumont are otherwise unchanged since earlier today. Signed: Alberto Holman MDReport Verified Date/Time: 05/05/2020 15:11:43 Reading Location: [facility] Radiology Reading Room XR chest PA or AP 1 view in [id number] 15:11:00Interface, External Ris In - 05/05/2020 3:13 PM CDTFINAL REPORT CLINICAL HISTORY: Post Lung Biopsy TECHNIQUE: 1 view of the chest. COMPARISON: 05/05/2020 IMPRESSION: There is nopneumothorax status post biopsy of the lingular lung mass. The lung dumont are otherwise unchanged since earlier today. Signed: Alberto Holman Verified Date/Time: 05/05/2020 15:11:43 Reading Location: [facility] Radiology Reading Room Electronically signed by: ALBERTO HOLMAN M.D. on 0 05/05/2020 03:11 [facility], 1 VIEW 2020-05-05 [...] chronic left rib fractures. Signed: Alberto Holman Verified Date/Time: 05/05/2020 13:13:23 Reading Location: [facility] Radiology Reading Room [facility]SY, [id number] 12:12:00 Reason for Exam:->C64.9, R91.1FINAL REPORT CT-guided core biopsy dated 05/05/2020 Name of practitioner performing procedure:Ramón Romero M.D. Names of clinical research assistant:None Procedure: CT guided core biopsy of [...] lesion in the lingula. Signed: Ramón Romero MDReport Verified Date/Time: 05/05/2020 12:12:21 Reading Location: [facility] B1 C013Y CT Body Reading Room CT biopsy [id number] 12:12:00Interface, External Ris In - 05/05/2020 12:[address]-guided core biopsy dated 05/05/2020 Name of practitioner performing procedure:Ramón Romero M.D. Names of clinical research assistant:None Procedure: CT guided core biopsy of [...] lesion in the lingula. Signed: Ramón Romero MDReport Verified Date/Time: 05/05/2020 12:12:21 Reading Location: [facility] C013Y CT Body Reading Room [facility]Prothrombin time/[id number] 09:00:00 Test Item Value Reference Interpretation Comments [...] valves. Lab Interpretation Abnormal (test code = 40363-3) [facility]PTT[facility] 09:00:00 Test Item Value Reference Range Interpretation Comments PTT (test code = 00115-5) 31.7 See_Comment [ Automated message] The system [employer] h generated this result transmitted ref erence range: 22.5 - 3 6.0 seconds. The re ference range was not u sed to interpret this result as normal/abnor mal. Lab Interpretation (test Normal code = 04286-1) [facility] CenterPROTHROMBIN TIME/[id number] 09:00:00 Test Item Value Reference Range Interpretation [...] INR is2.5-3.5 for patients wiht mechanical heart valves.[id number] 09:00:00 Test Item Value Reference Range Interpretation Comments PARTIAL THROMBOPLASTIN TIME 31.7 seconds 22.5-36.0 (BEAKER) (test code = 760) CBC with platelet count + automated [id number] 08:43:00 Test Item Value Reference Range Interpretation Comments WBC (test code = 6690-2) 7.9 See_Comment [A utomated message] The system [employer] generated this result transmitted ref erence range: 3.5 - 10 .5 K/L. The refe rence range was not u sed to interpret this result as normal/abnor mal. RBC (test code = 789-8) 3.59 See_Comment L [Au tomated message] The system [employer] generated this result transmitted ref erence range: 4.63 - 6 .08 M/L. The refe rence range was not u sed to interpret this result as normal/abnor mal. MCHC (test code = 786-4) 29.5 See_Comment L [A utomated message] The system [employer] generated this result transmitted ref erence range: [...] code = 165 See_Comment [Aut omated message] 927-3) The system [employer] generated this result transmitted ref erence range: 150 - 45 0 K/CU MM. The referen ce range was not u sed to interpret this result as normal/abnor mal. MPV (test code = 10.3 fL 9.4-12.4 57877-1) nRBC (test code = 413) 0 See_Comment [Aut omated message] The system [employer] generated this result transmitted ref erence range: [...] H [Aut omated message] 670) The system [employer] generated this result transmitted ref erence range: 1.78 - 5 .38 K/L. The refe rence range was not u sed to interpret this result as normal/abnor mal. # Lymphs (test code = 1.02 See_Comment L [Auto mated message] 414) The system [employer] generated this result transmitted ref erence range: 1.32 - 3 .57 K/L. The refe rence range was not u sed to interpret this result as normal/abnor mal. # Monos (test code = 0.80 See_Comment [Autom ated message] 415) The system [employer] generated this result transmitted ref erence range: 0.30 - 0 .82 K/L. The refe rence range was not u sed to interpret this result as normal/abnor mal. # Eos (test code = 416) 0.26 See_Comment [Au tomated message] The system [employer] generated this result transmitted ref erence range: 0.04 - 0 .54 K/L. The refe rence range was not u sed to interpret this result as normal/abnor mal. # Baso (test code = 417) 0.02 See_Comment [A utomated message] The system [employer] generated this result transmitted ref erence range: 0.01 - 0 .08 K/L. The refe rence range was not u sed to interpret this result as normal/abnor mal. Immature 0 % 0-1 Granulocytes-Relative (test code = 2801) Lab Interpretation (test Abnormal code = 27957-5) [facility] W/PLT COUNT & AUTO [id number] 08:43:00 Test Item Value Reference Range Interpretation [...] (test code = 2801) Shoulder left cortisone [id number] 09:30:00Héctor Flores MD 02/24/2020 12:53 PMShoulder left cortisone injectionConsent given by: patientSite marked: site markedTimeout: Immediately prior to procedure a time out was called to verify the correct patient, procedure, equipment, child support specialist and site/side marked as required Supporting DocumentationIndications: [...] the procedure well with no immediate complicationsJose Floreshurley [facility] center shoulder cortisone [id number] 09:30:00Héctor Flores MD 02/24/2020 12:53 PMRight shoulder cortisone injectionConsent given by: patientSite marked: site markedTimeout: Immediately prior to procedure a time out was called to verify the correct patient, procedure, equipment, child support specialist and site/side marked as required Supporting DocumentationIndications: [...]
[2020-12-14 18:23] VITALS: BMI 32.1
[2020-12-14] MEDS: SCOPOLAMINE HYDROBROMIDE PATCH TD SCH ×2 (18:37→23:46)
--- NOTE | 2020-12-14 21:15 | P.HP ---
Certification for Inpatient Patient admitted to: Inpatient With expected LOS: >2 Midnights Patient will require the following post-hospital care: Hospice Practitioner: I am a practitioner with admitting privileges, knowledge of patient current condition, hospital course, and medical plan of care. Services: Services provided to patient in accordance with Admission requirements found in Title 42 Section 412.3 of the Code of Federal Regulations Patient History Date of Service: 12/14/20 Reason for admission: SHORT OF BREATH, WEAK, NECK PAIN. History of Present Illness: MR. 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 AT THIS POINT HE HAS LARGE HEMOTHORAX FROM CANCER OF [place] WITH METS AND HE IS TERMINAL. THERE IS NOTHING MUCH CAN OFFERED AT THIS POINT. FAMILY ASKED FO INPATIENT HOSPICE AND [facility] HAS ADMITTED HIM. HE HAS NECK PAIN BUT NO ABDOMEN PAIN CURRENTLY. Allergies sevelamer [From Renvela] Allergy (Verified 12/01/20 03:40) Itching adhesive tape Adverse Reaction (Verified 12/01/20 03:40) Itching codeine Adverse Reaction (Verified 12/01/20 03:40) Itching morphine Adverse Reaction (Verified 12/01/20 03:40) Itching Home Medications: Loratadine [Claritin*] 10 mg PO DAILY tab 08/07/19 Acetaminophen/Diphenhydramine [Tylenol Pm Ex-Strength Caplet] 2 tab PO BEDTIME 04/13/20 Atorvastatin Calcium [Lipitor*] 1 tab PO DAILY 04/13/20 Magnesium [Magnesium Gluconate] 250 mg PO DAILY PRN 04/13/20 Metoprolol Tartrate 1 tab PO BID 04/13/20 Temazepam 1 tab PO SEECOM PRN 04/13/20 Tramadol HCl [Ultram] 50 mg PO Q4H PRN 04/13/20 Pantoprazole Sodium [Protonix] 40 mg PO 30 MIN BEFORE HS 3 Days #30 tablet. 04/16/20 Antiox.mv No.10/Omeg3s/Lut/Yolande [I-Caps with Lutein-North Star 3 Sfg] 1 each PO DAILY 12/01/20 Docusate Sodium [Colace] 50 mg DAILY 12/01/20 Febuxostat [Uloric] 80 mg PO DAILY 12/01/20 Fluticasone/Salmeterol [Advair 250-50 Diskus] 1 each IH DAILY 12/01/20 Warfarin Sodium [Coumadin*] 5 mg PO SEECOM 12/01/20 - Past Medical/Surgical History Diabetic: No -: HTN -: Stage 5 kidney ON HD. -: DVT filter -: Kidney Ca -: 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 -: CHF -: chronic anemia -: AFib -: ESRD -: DVT filter placed -: cataract sx -: hemorrhoidectomy -: bilateral knee sx -: left hip surgery -: partial nephrectomy - Family History Mother -: Heart disease, Hypertension, Cancer Notes: breast cancer [place] Father -: Heart disease, Hypertension Notes: CHF Sister -: Hypertension, Kidney disease Notes: breast removed d/t precancer - Social History Alcohol use: No CD- Drugs: No Caffeine use: Yes Review of Systems 10-point ROS is otherwise unremarkable General: Weakness, Malaise Eyes: As per HPI Physical Examination - Physical Exam General: Alert, Oriented x3, Moderate distress, Obese Cardiovascular: Other (CHRONIC VENOUS CONGESTION OF LEGS.) Assessment and Plan - Problems (Diagnosis) (1) Metastatic renal cell carcinoma Current Visit: Yes Status: Chronic Plan: MR RUBALCAVA IS DR. TREVIÑO'S PATIENT. HE HAS STAGE 4 RENAL CELL CANCER WITH LARGE HEMOTHORAX. FAMILY AND HE HAVE ASKED FOR HOSPICE CARE INPATIENT. HE QUALIFIES FOR IT WITH PAIN MANAGEMENT IV. HE MAY LIVE LONGER THAN 5 DAYS BUT AGAIN NOT HAVING HEMODIALYSIS HE MAY PASS SOONER. 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 HE CAN'T HAVE HD NOW AND SO HE MAY START HAVING DYSPNEA. I WILL GIVE HIM ENOUGH MEDS TO KEEP HIM COMFORTABLE. TALKED TO FOUR FAMILY MEMBERS. THEY APPRECIATE OUR EFFORTS TO KEEP HIM COMFORTABLE IN HIS LAST DAYS. - Advance Directives Does patient have a Living Will: No Does patient have a Durable POA for Healthcare: Yes
[2020-12-14] MEDS: LORazepam 2 MG/ML VIAL IV PRN (23:47)
[2020-12-15] MEDS: HYDROMORPHONE HCL 1 MG/ML INJ IV PRN ×4 (03:20→18:42)
--- NOTE | 2020-12-15 20:12 | P.PN ---
Subjective Date of Service: 12/15/20 Chief Complaint: SHORT OF BREATH, WEAK, NECK PAIN. Subjective: Worsening MR RUBALCAVA IS GETTING WORSE DAILY. BP IS DROPPING. HE IS OF HD AND ALL LONG-TERM THERAPY. Review of Systems General: Weakness Physical Examination - Vital Signs Temperature: 96.8 F Blood Pressure: 78/42 Pulse: 80 Respirations: 16 Pulse Ox (%): 92 - Physical Exam General: Oriented x2, Cooperative, Obese Neck: Other (SEVERE DJD HAS MADE HIM HURT IN THE NECK.), Without JVD or thyroid abnormality Cardiovascular: Normal S1 S2, Other (FEEBLE PULSE.) Assessment And Plan - Current Problems (Diagnosis) (1) Metastatic renal cell carcinoma Current Visit: Yes Status: Chronic Plan: MR RUBALCAVA IS DR. TREVIÑO'S PATIENT. HE HAS STAGE 4 RENAL CELL CANCER WITH LARGE HEMOTHORAX. FAMILY AND HE HAVE ASKED FOR HOSPICE CARE INPATIENT. HE QUALIFIES FOR IT WITH PAIN MANAGEMENT IV. HE MAY LIVE LONGER THAN 5 DAYS BUT AGAIN NOT HAVING HEMODIALYSIS HE MAY PASS SOONER. 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 HE CAN'T HAVE HD NOW AND SO HE MAY START HAVING DYSPNEA. I WILL GIVE HIM ENOUGH MEDS TO KEEP HIM COMFORTABLE. TALKED TO FOUR FAMILY MEMBERS. THEY APPRECIATE OUR EFFORTS TO KEEP HIM COMFORTABLE IN HIS LAST DAYS. (5) Neck pain Current Visit: Yes Status: Chronic Plan: DJD PLACE LIDOCAINE PATCH.
[2020-12-16] MEDS: HYDROMORPHONE HCL 1 MG/ML INJ IV PRN ×6 (00:33→20:57)
[2020-12-16] MEDS: LORazepam 2 MG/ML VIAL IV PRN ×6 (03:19→20:57)
[2020-12-16] MEDS: LIDOCAINE 4% PATCH TOP SCH (08:19)
--- NOTE | 2020-12-16 17:52 | P.PN ---
Subjective Date of Service: 12/16/20 Chief Complaint: SHORT OF BREATH, WEAK, NECK PAIN. Subjective: No C/O voiced, Worsening MR RUBALCAVA IS GETTING WORSE DAILY. BP IS DROPPING. HE IS OF HD AND ALL [facility]. MR RUBALCAVA IS LESS RESPONSIVE TODAY. HE DID NOT RESPOND TO PAINFUL STIMULUS TODAY. Review of Systems is unable to be obtained Physical Examination - Vital Signs Temperature: 98.0 F Blood Pressure: 109/53 Pulse: 92 Respirations: 14 Pulse Ox (%): 90 - Physical Exam General: Mild distress, Comatose, Obese Neck: JVD not distended Respiratory: Diminished Cardiovascular: Normal S1 S2 Assessment And Plan - Current Problems (Diagnosis) (1) Metastatic renal cell carcinoma Current Visit: Yes Status: Chronic Plan: MR RUBALCAVA IS DR. TREVIÑO'S PATIENT. HE HAS STAGE 4 RENAL CELL CANCER WITH LARGE HEMOTHORAX. FAMILY AND HE HAVE ASKED FOR HOSPICE CARE INPATIENT. HE QUALIFIES FOR IT WITH PAIN MANAGEMENT IV. HE MAY LIVE LONGER THAN 5 DAYS BUT AGAIN NOT HAVING HEMODIALYSIS HE MAY PASS SOONER. I ASKED RN IF FAMILY WANTS TO STOP OXYGEN IT MAY BE PROLONGING HIS AGONY. 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 HE CAN'T HAVE HD NOW AND SO HE MAY START HAVING DYSPNEA. I WILL GIVE HIM ENOUGH MEDS TO KEEP HIM COMFORTABLE. TALKED TO FOUR FAMILY MEMBERS. THEY APPRECIATE OUR EFFORTS TO KEEP HIM COMFORTABLE IN HIS LAST DAYS. (5) Neck pain Current Visit: Yes Status: Chronic Plan: DJD PLACE LIDOCAINE PATCH.
[2020-12-17] MEDS: HYDROMORPHONE HCL 1 MG/ML INJ IV PRN ×5 (00:26→12:43)
[2020-12-17] MEDS: LORazepam 2 MG/ML VIAL IV PRN ×5 (00:26→12:44)
[2020-12-17 05:23] VITALS: O2SAT 91
[2020-12-17 08:02] VITALS: BP 92/44; TEMP 98.5
[2020-12-17] MEDS: SCOPOLAMINE HYDROBROMIDE PATCH TD SCH (10:35)
[2020-12-17] MEDS: LIDOCAINE 4% PATCH TOP SCH (10:35)
--- NOTE | 2020-12-17 13:59 | P.DS ---
Admission Date: 12/14/20 Discharge Date: 12/17/20 Disposition: Reason for Admission: SHORT OF BREATH, WEAK, NECK PAIN. - Problems (1) Metastatic renal cell carcinoma Current Visit: Yes Status: Chronic (2) Metastatic renal cell carcinoma to lung Current Visit: Yes Status: Chronic (3) Lung metastases Current Visit: No Status: Chronic Qualifiers: Laterality: unspecified laterality Qualified Code(s): C78.00 - Secondary malignant neoplasm of unspecified lung (4) ESRD (end stage renal disease) Current Visit: No Status: Chronic (5) Neck pain Current Visit: Yes Status: Chronic Brief History of Present Illness: MR. 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 AT THIS POINT HE HAS LARGE HEMOTHORAX FROM CANCER OF [place] WITH METS AND HE IS TERMINAL. THERE IS NOTHING MUCH CAN OFFERED AT THIS POINT. FAMILY ASKED INPATIENT HOSPICE AND [facility] HAS ADMITTED HIM. HE HAS NECK PAIN BUT NO ABDOMEN PAIN CURRENTLY. Hospital Course: MR. RUBALCAVA HAS FROM RENAL CELL CANCER EXPECTED. HE WAS ON HOSPICE. Vital Signs/Physical Exam: Temp Pulse Resp BP Pulse Ox 98.5 F 84 16 92/44 L 86 L 12/17/20 08:00 12/17/20 08:00 12/17/20 12:43 12/17/20 08:00 12/17/20 12:43 Home Medications: Loratadine [Claritin*] 10 mg PO DAILY tab 08/07/19 Acetaminophen/Diphenhydramine [Tylenol Pm Ex-Strength Caplet] 2 tab PO BEDTIME 04/13/20 Atorvastatin Calcium [Lipitor*] 1 tab PO DAILY 04/13/20 Magnesium [Magnesium Gluconate] 250 mg PO DAILY PRN 04/13/20 Metoprolol Tartrate 1 tab PO BID 04/13/20 Temazepam 1 tab PO SEECOM PRN 04/13/20 Tramadol HCl [Ultram] 50 mg PO Q4H PRN 04/13/20 Pantoprazole Sodium [Protonix] 40 mg PO 30 MIN BEFORE HS 3 Days #30 tablet. 04/16/20 Antiox.mv No.10/Omeg3s/Lut/Yolande [I-Caps with Lutein-[place] 3 Sfg] 1 each PO DAILY 12/01/20 Docusate Sodium [Colace] 50 mg DAILY 12/01/20 Febuxostat [Uloric] 80 mg PO DAILY 12/01/20 Fluticasone/Salmeterol [Advair 250-50 Diskus] 1 each IH DAILY 12/01/20 Warfarin Sodium [Coumadin*] 5 mg PO SEECOM 12/01/20
== END 2020-12-17 14:50 | disposition expired | DRG 686 ==
LOC: 4TH 17:35
PROVIDERS: ADMIT Internal Medicine; ATTEND Internal Medicine
DX: C64.9 Malignant neoplasm of unspecified kidney, except renal pelvis (principal); N18.6 End stage renal disease; J94.2 Hemothorax; I12.0 Hypertensive chronic kidney disease with stage 5 chronic kidney disease or end stage renal disease; C78.00 Secondary malignant neoplasm of unspecified lung; M19.09 Primary osteoarthritis, other specified site; Z99.2 Dependence on renal dialysis; Z88.5 Allergy status to narcotic agent; Z88.8 Allergy status to other drugs, medicaments and biological substances; Z91.048 Other nonmedicinal substance allergy status; Z79.01 Long term (current) use of anticoagulants; Z79.899 Other long term (current) drug therapy; Z86.718 Personal history of other venous thrombosis and embolism
CPT/HCPCS: J1170